=== PATIENT | male | born 1955 | race Caucasian/White ===

== ENCOUNTER 2019-10-27 11:00 | Inpatient (IN) ==
[2019-10-27] MEDS ORDERED: SODIUM CHLORIDE 0.9% 1000ML 1,000 ML IV SCH (11:45)
--- NOTE | 2019-10-27 11:49 | Emergency Department Note ---
Impression & Plan AMS (altered mental status), Sepsis, Left lower lobe pneumonia, Leukocytosis, Constipation, Abnormal ECG, Back pain ED Provider Note INFORMANT: Patient ED PROVIDER(S): Johnathan Hollingsworth MD CHIEF COMPLAINT: Altered mental status PLAN: Disposition: Admitted Condition: Guarded MEDICAL DECISION MAKING: Patient presented with altered mental status. is present and helps with the history. He was found to have moderate tachycardia. He had abdominal discomfort. Chest x-ray did not reveal any obvious findings. ECG showed a sinus tachycardia. There is nonspecific ST. The patient had a marked leukocytosis on his CBC. Head CT and abdomen pelvis CT were performed. Left lower lobe infiltrate noted on abdomen pelvis CT. Head CT was unremarkable. Constipation and a mildly enlarged gallbladder noted on CT imaging otherwise. No other acute findings noted. The patient was found to have some mild deh ydration on chemistry panel. He was treated with Zosyn and vancomycin. The patient was hydrated. He was given a banana bag. He was also treated with Zofran. Further management in the hospital will be necessary. Consultation was made with the [facility] hospitalist service. The patient was evaluated by the team in the emergency department and admitted under Dr. Damian. Triage Nursing notes reviewed and agree them. Additional history obtained from patient's Vital Signs: reviewed and remarkable for tachycardia and hypertension Differential diagnosis: Infection, hypoglycemia, electrolyte abnormalities, overdose, toxicologic, cardiac sources, intracerebral event, neurologic, trauma, as well as other pathologies. Diagnostics interpreted by me: ECG:Rate: 109 Rhythm: Sinus tachycardia [place]: Right axis deviation QRS:Normal ST segements: Nonspecific ST no elevation or depression Other:No PACs or PVCs Cardiac Monitoring:Cardiac monitoring ordered by me: The patient was placed on continuous cardiac monitoring and observed. It revealed a tachycardia at 122 beats per minute without ectopy or evidence of dysrhythmia. Imaging studies: CT scan and chest x-rays as noted above. I refer you to the EMR for further details. Consultation(s): [facility] hospitalist service HPI: The patient is a 64 year old male who presents to the Emergency Room with complaints of lethargy. This started this morning and is persisting. Pts noted he has been having a lot of back spasms and took extra oxycodone, flexeril, and valiums over the last few days. Chronic LBP hx. Pt also quit ETOH 3 weeks ago. note he slept [id number] last night into this morning. She noted he looked grayish in the bathroom this morning. Had vomiting and diarrhea. The patient has found no relieving factors. Current pain is rated as 0/10. Pt denies headache, fevers, chills, diaphoresis, visual changes, neck pain, chest pain, breathing difficulties, abdominal pain, melena, hematochezia, urinary symptoms, numbness, weakness, lymphadenopathy, rash, or other complaints. ROS: See above HPI for pertinent positives & negatives. A total of 10 systems reviewed and were otherwise negative. PAST MEDICAL HISTORY:See Below CKD, ETOH abuse PAST SURGICAL HISTORY:See Below FAMILY HISTORY:See Below SOCIAL HISTORY:See Below HOME MEDICATIONS:See Below ALLERGIES:See Below VITALS:See Below PHYSICAL EXAMINATION: GENERAL: Awake, alert, umcomfortable-appearing, in no distress HENT: Normocephalic, atraumatic. Oropharynx unremarkable. EYES: Normal conjunctiva. Sclera non-icteric. NECK: Inspection normal. Non-tender. Supple. No nuchal rigidity. FROM. No masses. RESPIRATORY: Clear to auscultation. No wheezes. No rales. Normal respiratory effort. CARDIAC: Tachycardic rate. Normal rhythm. No murmurs. No rubs. Extremities warm and well perfused. Pulses equal. No JVD. GI: Soft, non-distended. No tenderness to palpation. No rebound or guarding. No masses. RECTAL: Deferred. MUSCULOSKELETAL: Atraumatic. Chest examination reveals no tenderness. The back is symmetrical on inspection without obvious abnormality. There is no CVA tenderness to palpation. No joint edema. LOWER EXTREMITIES: Calves are equal size bilaterally and non-tender. No edema. No discoloration. NEURO: Normal sensorium. No sensory or motor deficits noted. SKIN: No rash or jaundice noted. ED COURSE: Critical Care: I have personally spent greater than 38 minutes of critical care time in the direct management of this patient. This includes bedside care, interpretation of diagnostic studies, and testing, discussion with consultants, patient, and family members, and other required patient management activities. These minutes are in excess of all separately billable procedures. Johnathan Hollingsworth MD Past Med/Surg History Medical History (Updated 10/27/19 @ 19:07 by Johnathan Hollingsworth MD) Chronic low back pain COPD (chronic obstructive pulmonary disease) Degenerative joint disease (DJD) of lumbar spine Lumbar degenerative disc disease Neuropathy Pneumothorax Rib fracture Tobacco abuse Surgical History History of cataract surgery S/P chest tube placement Social History Smoking Status: Current every day smoker packs per day: 1; Hx Alcohol Use: Yes (history of alcohol abuse) Alcohol type: beer Preferred Language: Mont[place] Visual Impairment: No Limitations Hearing Ability: Normal Beliefs That Will Affect Care: None marital status: Current Living Situation: Spouse Feels Safe at Home: Yes Allergies Allergies Allergy/AdvReac Type Severity Reaction Status Date / Time No Known Allergies Allergy Verified 10/27/19 13:15 Home Meds Home Medications Medication Instructions Recorded Confirmed [facility] Arthritis Pill 600 mg PO UD PRN 07/28/19 10/27/19 gabapentin [Neurontin] 300 mg PO TID 07/28/19 10/27/19 sulindac 200 mg PO BID 07/28/19 10/27/19 aluminum hydrox-magnesium carb 15 ml PO PCHS 10/27/19 10/27/19 [Gaviscon] baclofen 10 mg PO HS 10/27/19 10/27/19 cyclobenzaprine 10 mg PO TID PRN 10/27/19 10/27/19 meloxicam 15 mg PO DAILY 10/27/19 10/27/19 oxycodone-acetaminophen 1 tab PO Q6H PRN 10/27/19 10/27/19 Previous Rx's Medication Instructions Recorded docusate sodium [Colace] 100 mg PO BID #60 cap 08/03/19 lidocaine [Lidoderm] 1 patch TOP DAILY #15 ea 08/03/19 sennosides [Senokot] 8.6 mg PO HS #30 tab 08/03/19 diazepam [Valium] 5 mg PO BID PRN #7 tab 10/13/19 Results & Data (ED) Vital Signs Vital Signs - 24 hr 10/27/19 11:04 10/27/19 11:18 10/27/19 11:24 Temperature 36.6 C Temperature Source Oral Pulse Rate 113 H Pulse Rate from SpO2 Sensor 111 H Pulse Rhythm Respiratory Rate 17 14 Respiratory Depth Normal Respiratory Pattern Regular Blood Pressure 168/96 H 168/96 H Blood Pressure Mean 126 120 Pulse Oximetry 99 98 98 Oxygen Delivery Method Room Air Room Air Sepsis Recent Fever Within 48 Hours No Sepsis New/Unexplained Change in Mental Status Yes Sepsis Action Taken by Nursing No Action Required 10/27/19 11:25 10/27/19 11:30 10/27/19 11:40 Temperature Temperature Source Pulse Rate 118 H 122 H Pulse Rate from SpO2 Sensor 118 H Pulse Rhythm Regular Respiratory Rate 21 18 Respiratory Depth Respiratory Pattern Blood Pressure 140/89 Blood Pressure Mean 110 Pulse Oximetry 99 99 Oxygen Delivery Method Room Air Room Air Sepsis Recent Fever Within 48 Hours Sepsis New/Unexplained Change in Mental Status Sepsis Action Taken by Nursing 10/27/19 12:01 10/27/19 12:37 10/27/19 12:43 Temperature Temperature Source Pulse Rate 128 H 102 H 109 H Pulse Rate from SpO2 Sensor 129 H 101 H 110 H Pulse Rhythm Respiratory Rate 24 14 16 Respiratory Depth Respiratory Pattern Blood Pressure 130/98 214/102 H 202/106 H Blood Pressure Mean 113 126 125 Pulse Oximetry 99 100 100 Oxygen Delivery Method Sepsis Recent Fever Within 48 Hours Sepsis New/Unexplained Change in Mental Status Sepsis Action Taken by Nursing 10/27/19 13:00 10/27/19 13:37 10/27/19 14:00 Temperature Temperature Source Pulse Rate 91 H 88 86 Pulse Rate from SpO2 Sensor 90 90 Pulse Rhythm Respiratory Rate 13 16 15 Respiratory Depth Respiratory Pattern Blood Pressure 183/98 H 205/93 H 198/106 H Blood Pressure Mean 149 143 138 Pulse Oximetry 100 99 Oxygen Delivery Method Sepsis Recent Fever Within 48 Hours Sepsis New/Unexplained Change in Mental Status Sepsis Action Taken by Nursing 10/27/19 14:30 10/27/19 15:00 10/27/19 15:30 Temperature Temperature Source Pulse Rate 75 68 79 Pulse Rate from SpO2 Sensor Pulse Rhythm Respiratory Rate 20 13 20 Respiratory Depth Respiratory Pattern Blood Pressure 200/92 H 173/91 H 202/89 H Blood Pressure Mean 135 137 114 Pulse Oximetry 99 99 Oxygen Delivery Method Sepsis Recent Fever Within 48 Hours Sepsis New/Unexplained Change in Mental Status Sepsis Action Taken by Nursing 10/27/19 16:13 10/27/19 16:31 Temperature Temperature Source Pulse Rate 90 77 Pulse Rate from SpO2 Sensor 77 Pulse Rhythm Respiratory Rate 24 17 Respiratory Depth Respiratory Pattern Blood Pressure 140/66 183/79 H Blood Pressure Mean 101 128 Pulse Oximetry 98 Oxygen Delivery Method Sepsis Recent Fever Within 48 Hours Sepsis New/Unexplained Change in Mental Status Sepsis Action Taken by Nursing Laboratory Data Result diagrams: 10/27/19 12:04 10/27/19 12:04 Lab Results 10/27/19 10/27/19 10/27/19 Range/Units 11:11 12:04 12:04 WBC 21.99 H (4.8-10.8) K/uL RBC 4.87 (4.7-6.1) M/uL Hgb 16.5 (14.0-18.0) g/dL Hct 48.0 (42-52) % MCV 98.6 (80-100) fL MCH 33.9 (25-34) pg MCHC 34.4 (32-36) g/dL RDW Std Deviation 48.6 H (36.4-46.3) fL RDW Coeff of [place] 13.6 (11.5-14.5) % Plt Count 507 H (130-400) K/uL MPV 9.3 (7.4-10.4) fL Immature Gran % (Auto) 0.6 % Neut % (Auto) 76.9 % Lymph % (Auto) 12.4 % [place] % (Auto) 8.5 % Eos % (Auto) 1.1 % Baso % (Auto) 0.5 % Neut # (Auto) 16.89 H (1.4-6.5) K/uL Lymph # (Auto) 2.73 (1.2-3.4) K/uL [place] # (Auto) 1.88 H (0.11-0.59) K/uL Eos # (Auto) 0.24 (0-0.5) K/uL Baso # (Auto) 0.12 (0-0.2) K/uL Immature Gran # (Auto) 0.13 H (0.00-0.02) K/uL Sodium 139 (136-145) mmol/L Potassium 5.1 (3.5-5.1) mmol/L Chloride 105 (98-107) mmol/L Carbon Dioxide 26 (21-32) mmol/L Anion Gap 9.0 (3-11) BUN 31 H (7-18) mg/dl Creatinine 1.90 H (0.6-1.4) mg/dl Est Cr Clr Drug Dosing 27.4 ml/min Est GFR ( Amer) 41.9 Est GFR (Non-Af Amer) 36.2 BUN/Creatinine Ratio 16.1 (10-20) Glucose 116 H (70-99) mg/dl POC Glucose 122 H (70-99) mg/dl Lactate (0.4-2.0) mmol/L Calcium 10.3 H (8.5-10.1) mg/dl Magnesium 2.9 H (1.8-2.4) mg/dl Total Bilirubin 0.4 (0.2-1) mg/dl AST 13 L (15-37) U/L ALT 20 (12-78) U/L Alkaline Phosphatase 125 H (45-117) U/L Troponin I < 0.015 (0-0.045) ng/ml Total Protein 8.4 H (6.4-8.2) gm/dl Albumin 3.6 (3.4-5.0) gm/dl Globulin 4.8 H (2.5-4.0) gm/dl Albumin/Globulin Ratio 0.7 L (0.9-2) Procalcitonin (0-0.5) ng/ml TSH 2.180 (0.300-4.500) uIu/ml Urine Color Urine Appearance (Clear) Urine pH (4.5-7.5) Ur Specific [place] (1.000-1.030) Urine Protein (Negative) Urine Glucose (UA) (Negative) Urine Ketones (Negative) Urine Blood (Negative) Urine Nitrite (Negative) Urine Bilirubin (Negative) Urine Urobilinogen (Negative) Ur Leukocyte Esterase (Negative) Urine WBC (Auto) (0-5) /hpf Urine RBC (Auto) (0-4) /hpf U Hyaline Cast (Auto) (0-5) /lpf U Epithel Cells (Auto) (0-5) /lpf Urine Bacteria (Auto) (Negative) Urine Opiates Screen (Neg) Ur Methadone, Qual (Neg) Urine Barbiturates (Neg) Ur Phencyclidine (PCP) (Neg) U Amphetamin/Meth Scrn (Neg) MDMA (Ecstasy) Screen (Neg) U Benzodiazepines Scrn (Neg) Ur Cocaine Metabolite (Neg) U Marijuana (THC) Screen (Neg) Ethyl Alcohol mg/dL (0-3) mg/dl COVID-19 PCR (Negative) 10/27/19 10/27/19 10/27/19 Range/Units 12:04 12:10 13:25 WBC (4.8-10.8) K/uL RBC (4.7-6.1) M/uL Hgb (14.0-18.0) g/dL Hct (42-52) % MCV (80-100) fL MCH (25-34) pg MCHC (32-36) g/dL RDW Std Deviation (36.4-46.3) fL RDW Coeff of [place] (11.5-14.5) % Plt Count (130-400) K/uL MPV (7.4-10.4) fL Immature Gran % (Auto) % Neut % (Auto) % Lymph % (Auto) % [place] % (Auto) % Eos % (Auto) % Baso % (Auto) % Neut # (Auto) (1.4-6.5) K/uL Lymph # (Auto) (1.2-3.4) K/uL [place] # (Auto) (0.11-0.59) K/uL Eos # (Auto) (0-0.5) K/uL Baso # (Auto) (0-0.2) K/uL Immature Gran # (Auto) (0.00-0.02) K/uL Sodium (136-145) mmol/L Potassium (3.5-5.1) mmol/L Chloride (98-107) mmol/L Carbon Dioxide (21-32) mmol/L Anion Gap (3-11) BUN (7-18) mg/dl Creatinine (0.6-1.4) mg/dl Est Cr Clr Drug Dosing ml/min Est GFR ( Amer) Est GFR (Non-Af Amer) BUN/Creatinine Ratio (10-20) Glucose (70-99) mg/dl POC Glucose (70-99) mg/dl Lactate 2.7 H* (0.4-2.0) mmol/L Calcium (8.5-10.1) mg/dl Magnesium (1.8-2.4) mg/dl Total Bilirubin (0.2-1) mg/dl AST (15-37) U/L ALT (12-78) U/L Alkaline Phosphatase (45-117) U/L Troponin I (0-0.045) ng/ml Total Protein (6.4-8.2) gm/dl Albumin (3.4-5.0) gm/dl Globulin (2.5-4.0) gm/dl Albumin/Globulin Ratio (0.9-2) Procalcitonin 4.70 H (0-0.5) ng/ml TSH (0.300-4.500) uIu/ml Urine Color Urine Appearance (Clear) Urine pH (4.5-7.5) Ur Specific [place] (1.000-1.030) Urine Protein (Negative) Urine Glucose (UA) (Negative) Urine Ketones (Negative) Urine Blood (Negative) Urine Nitrite (Negative) Urine Bilirubin (Negative) Urine Urobilinogen (Negative) Ur Leukocyte Esterase (Negative) Urine WBC (Auto) (0-5) /hpf Urine RBC (Auto) (0-4) /hpf U Hyaline Cast (Auto) (0-5) /lpf U Epithel Cells (Auto) (0-5) /lpf Urine Bacteria (Auto) (Negative) Urine Opiates Screen (Neg) Ur Methadone, Qual (Neg) Urine Barbiturates (Neg) Ur Phencyclidine (PCP) (Neg) U Amphetamin/Meth Scrn (Neg) MDMA (Ecstasy) Screen (Neg) U Benzodiazepines Scrn (Neg) Ur Cocaine Metabolite (Neg) U Marijuana (THC) Screen (Neg) Ethyl Alcohol mg/dL < 3.0 (0-3) mg/dl COVID-19 PCR (Negative) 10/27/19 10/27/19 10/27/19 Range/Units 14:20 14:45 14:45 WBC (4.8-10.8) K/uL RBC (4.7-6.1) M/uL Hgb (14.0-18.0) g/dL Hct (42-52) % MCV (80-100) fL MCH (25-34) pg MCHC (32-36) g/dL RDW Std Deviation (36.4-46.3) fL RDW Coeff of [place] (11.5-14.5) % Plt Count (130-400) K/uL MPV (7.4-10.4) fL Immature Gran % (Auto) % Neut % (Auto) % Lymph % (Auto) % [place] % (Auto) % Eos % (Auto) % Baso % (Auto) % Neut # (Auto) (1.4-6.5) K/uL Lymph # (Auto) (1.2-3.4) K/uL [place] # (Auto) (0.11-0.59) K/uL Eos # (Auto) (0-0.5) K/uL Baso # (Auto) (0-0.2) K/uL Immature Gran # (Auto) (0.00-0.02) K/uL Sodium (136-145) mmol/L Potassium (3.5-5.1) mmol/L Chloride (98-107) mmol/L Carbon Dioxide (21-32) mmol/L Anion Gap (3-11) BUN (7-18) mg/dl Creatinine (0.6-1.4) mg/dl Est Cr Clr Drug Dosing ml/min Est GFR ( Amer) Est GFR (Non-Af Amer) BUN/Creatinine Ratio (10-20) Glucose (70-99) mg/dl POC Glucose (70-99) mg/dl Lactate (0.4-2.0) mmol/L Calcium (8.5-10.1) mg/dl Magnesium (1.8-2.4) mg/dl Total Bilirubin (0.2-1) mg/dl AST (15-37) U/L ALT (12-78) U/L Alkaline Phosphatase (45-117) U/L Troponin I (0-0.045) ng/ml Total Protein (6.4-8.2) gm/dl Albumin (3.4-5.0) gm/dl Globulin (2.5-4.0) gm/dl Albumin/Globulin Ratio (0.9-2) Procalcitonin (0-0.5) ng/ml TSH (0.300-4.500) uIu/ml Urine Color Yellow Urine Appearance Clear (Clear) Urine pH 7.0 (4.5-7.5) Ur Specific [place] 1.016 (1.000-1.030) Urine Protein 2+ H (Negative) Urine Glucose (UA) Negative (Negative) Urine Ketones Negative (Negative) Urine Blood 3+ H (Negative) Urine Nitrite Positive A (Negative) Urine Bilirubin Negative (Negative) Urine Urobilinogen Negative (Negative) Ur Leukocyte Esterase 2+ H (Negative) Urine WBC (Auto) >30 H (0-5) /hpf Urine RBC (Auto) >30 H (0-4) /hpf U Hyaline Cast (Auto) 5-10 H (0-5) /lpf U Epithel Cells (Auto) 0-5 (0-5) /lpf Urine Bacteria (Auto) 4+ H (Negative) Urine Opiates Screen Neg (Neg) Ur Methadone, Qual Neg (Neg) Urine Barbiturates Neg (Neg) Ur Phencyclidine (PCP) Neg (Neg) U Amphetamin/Meth Scrn Neg (Neg) MDMA (Ecstasy) Screen Neg (Neg) U Benzodiazepines Scrn Pos H (Neg) Ur Cocaine Metabolite Neg (Neg) U Marijuana (THC) Screen Neg (Neg) Ethyl Alcohol mg/dL (0-3) mg/dl COVID-19 PCR NEGATIVE (Negative) 10/27/19 Range/Units 15:56 WBC (4.8-10.8) K/uL RBC (4.7-6.1) M/uL Hgb (14.0-18.0) g/dL Hct (42-52) % MCV (80-100) fL MCH (25-34) pg MCHC (32-36) g/dL RDW Std Deviation (36.4-46.3) fL RDW Coeff of [place] (11.5-14.5) % Plt Count (130-400) K/uL MPV (7.4-10.4) fL Immature Gran % (Auto) % Neut % (Auto) % Lymph % (Auto) % [place] % (Auto) % Eos % (Auto) % Baso % (Auto) % Neut # (Auto) (1.4-6.5) K/uL Lymph # (Auto) (1.2-3.4) K/uL [place] # (Auto) (0.11-0.59) K/uL Eos # (Auto) (0-0.5) K/uL Baso # (Auto) (0-0.2) K/uL Immature Gran # (Auto) (0.00-0.02) K/uL Sodium (136-145) mmol/L Potassium (3.5-5.1) mmol/L Chloride (98-107) mmol/L Carbon Dioxide (21-32) mmol/L Anion Gap (3-11) BUN (7-18) mg/dl Creatinine (0.6-1.4) mg/dl Est Cr Clr Drug Dosing ml/min Est GFR ( Amer) Est GFR (Non-Af Amer) BUN/Creatinine Ratio (10-20) Glucose (70-99) mg/dl POC Glucose (70-99) mg/dl Lactate 1.9 (0.4-2.0) mmol/L Calcium (8.5-10.1) mg/dl Magnesium (1.8-2.4) mg/dl Total Bilirubin (0.2-1) mg/dl AST (15-37) U/L ALT (12-78) U/L Alkaline Phosphatase (45-117) U/L Troponin I (0-0.045) ng/ml Total Protein (6.4-8.2) gm/dl Albumin (3.4-5.0) gm/dl Globulin (2.5-4.0) gm/dl Albumin/Globulin Ratio (0.9-2) Procalcitonin (0-0.5) ng/ml TSH (0.300-4.500) uIu/ml Urine Color Urine Appearance (Clear) Urine pH (4.5-7.5) Ur Specific [place] (1.000-1.030) Urine Protein (Negative) Urine Glucose (UA) (Negative) Urine Ketones (Negative) Urine Blood (Negative) Urine Nitrite (Negative) Urine Bilirubin (Negative) Urine Urobilinogen (Negative) Ur Leukocyte Esterase (Negative) Urine WBC (Auto) (0-5) /hpf Urine RBC (Auto) (0-4) /hpf U Hyaline Cast (Auto) (0-5) /lpf U Epithel Cells (Auto) (0-5) /lpf Urine Bacteria (Auto) (Negative) Urine Opiates Screen (Neg) Ur Methadone, Qual (Neg) Urine Barbiturates (Neg) Ur Phencyclidine (PCP) (Neg) U Amphetamin/Meth Scrn (Neg) MDMA (Ecstasy) Screen (Neg) U Benzodiazepines Scrn (Neg) Ur Cocaine Metabolite (Neg) U Marijuana (THC) Screen (Neg) Ethyl Alcohol mg/dL (0-3) mg/dl COVID-19 PCR (Negative) Administered Medications Sodium Chloride (Nss 1000ml) 1,000 mls @ 125 mls/hr IV .Q8H GENTRY Stop: 10/27/19 19:44 Last Admin: 10/27/19 11:48 Dose: 125 mls/hr Documented by: [id number] Discontinued Medications Acetaminophen (Acetaminophen 1000 Mg/100 Ml Iv) Confirm Administered Dose 1,000 mg IV .STK-MED ONE Stop: 10/27/19 16:16 Last Admin: 10/27/19 16:36 Dose: 1,000 mg Documented by: [id number] Famotidine (Famotidine 20mg/5ml Iv Push) 20 mg IV ONE STA Stop: 10/27/19 12:51 Last Admin: 10/27/19 13:32 Dose: 20 mg Documented by: [id number] Multivitamins 10 ml/ Thiamine HCl 100 mg/ Folic Acid 1 mg/Sodium Chloride 1,011.2 mls @ 1,011.2 mls/hr IV .Q1H ONE Stop: 10/27/19 12:52 Last Infusion: 10/27/19 13:56 Dose: 0 mls/hr Documented by: [id number] Admin: 10/27/19 12:44 Dose: 1,011.2 mls/hr Documented by: [id number] Piperacillin Sod/Tazobactam Sod (Zosyn) 4.5 gm in 120 mls @ 240 mls/hr IV NOW ONE Stop: 10/27/19 13:21 Last Infusion: 10/27/19 14:18 Dose: 0 mls/hr Documented by: [id number] Admin: 10/27/19 13:32 Dose: 240 mls/hr Documented by: [id number] Vancomycin HCl 1,000 mg/ (Sodium Chloride) 520 mls @ 200 mls/hr IV NOW ONE Stop: 10/27/19 15:52 Last Infusion: 10/27/19 16:38 Dose: 0 mls/hr Documented by: [id number] Admin: 10/27/19 13:56 Dose: 200 mls/hr Documented by: [id number] Ondansetron HCl (Ondansetron Inj 2 Mg/Ml 2 Ml Vial) 4 mg IV NOW STA Stop: 10/27/19 12:51 Last Admin: 10/27/19 13:32 Dose: 4 mg Documented by: [id number] Discharge Plan Visit Data Chief Complaint: Illness Stated Complaint: Lethargic Possible Overdose ED Provider: Johnathan Hollingsworth Discharge Problem: AMS (altered mental status), Sepsis, Left lower lobe pneumonia, Leukocytosis, Constipation, Abnormal ECG, Back pain Patient Disposition: Admitted As Inpatient Discharge Instructions Interventions: ED Discharge Assessment Last Done: 10/27/19 17:28
[2019-10-27] MEDS ORDERED: MULTI-VITAMIN INFUSION 10 ML, THIAMINE HCL 100 MG, FOLIC ACID 1 MG in SODIUM CHLORIDE 0... IV ONE (11:53)
[2019-10-27 12:22] LABS: Basophils # (auto) 0.12 K/uL (0-0.2); Basophils % (auto) 0.5 %; Eosinophils # (auto) 0.24 K/uL (0-0.5); Eosinophils % (auto) 1.1 %; Hemoglobin 16.5 g/dL (14.0-18.0); Immature Granulocytes # (auto) 0.13 K/uL (0.00-0.02); Immature Granulocytes % (auto) 0.6 %; Lymphocytes # (auto) 2.73 K/uL (1.2-3.4); Lymphocytes % (auto) 12.4 %; Mean Corpuscular Hemoglobin 33.9 pg (25-34); Mean Corpuscular Hgb Conc 34.4 g/dL (32-36); Mean Corpuscular Volume 98.6 fL (80-100); Mean Platelet Volume 9.3 fL (7.4-10.4); Monocytes # (auto) 1.88 K/uL (0.11-0.59); Monocytes % (auto) 8.5 %; Neutrophils # (auto) 16.89 K/uL (1.4-6.5); Neutrophils % (auto) 76.9 %; Platelet Count 507 K/uL (130-400); RDW Coefficient of Variation 13.6 % (11.5-14.5); RDW Standard Deviation 48.6 fL (36.4-46.3); Red Blood Count 4.87 M/uL (4.7-6.1); White Blood Count 21.99 K/uL (4.8-10.8)
[2019-10-27 12:41] LABS: Alanine Aminotransferase 20 U/L (12-78); Albumin Level 3.6 gm/dl (3.4-5.0); Aspartate Aminotransferase 13 U/L (15-37); BUN Creatinine Ratio 16.1 (10-20); Blood Urea Nitrogen 31 mg/dl (7-18); Calcium 10.3 mg/dl (8.5-10.1); Carbon Dioxide 26 mmol/L (21-32); Chloride 105 mmol/L (98-107); Creatinine Clr Calc Pharmacy 27.4 ml/min; Est GFR (African American) 41.9; Est GFR (Non-African American) 36.2; Glucose 116 mg/dl (70-99); Magnesium 2.9 mg/dl (1.8-2.4); Potassium 5.1 mmol/L (3.5-5.1); Sodium 139 mmol/L (136-145)
[2019-10-27] MEDS ORDERED: FAMOTIDINE 20MG/5ML IV PUSH IV STA (12:50)
[2019-10-27] MEDS ORDERED: ONDANSETRON INJ 2 MG/ML 2 ML VIAL IV STA (12:50)
[2019-10-27 12:52] LABS: Albumin Globulin Ratio 0.7 (0.9-2); Alkaline Phosphatase 125 U/L (45-117); Bilirubin,Total 0.4 mg/dl (0.2-1); Globulin 4.8 gm/dl (2.5-4.0); Total Protein 8.4 gm/dl (6.4-8.2); Troponin I < 0.015 ng/ml (0-0.045)
[2019-10-27] MEDS ORDERED: PIPERACILL/TAZOBAC CONSULT ACTIVE PRN (12:52)
[2019-10-27] MEDS ORDERED: PIPERACILLIN/TAZOBACTAM 4.5 GM/120 ML BAG IV ONE (12:52)
--- NOTE | 2019-10-27 12:54 | CT Scan Report ---
ABDOMEN AND PELVIS CT WITHOUT CONTRAST CT DOSE: 1762.25 mGy.cm HISTORY: Generalized abdominal pain. Altered mental status. TECHNIQUE: Multiaxial CT images of the abdomen and pelvis were performed without contrast. A dose lo wering technique was utilized adhering to the principles of ALARA. COMPARISON STUDY: None. FINDINGS: Small focus of faint groundglass densities within the left lower lobe. The right lung base is clear. No pneumoperitoneum. No pneumatosis. No suspicious lytic are blastic osseous lesions. Mildl y distended gallbladder. No gallbladder wall thickening. The unenhanced liver, spleen, adrenal glands , and pancreas are unremarkable. No renal stones or hydronephrosis. Mild to moderate left cortical re nal scarring. A few hypodense lesions within the kidneys which are incompletely characterized on this noncontrast study. The largest on the right measures 2.2 cm. Statistically these represent cysts. Mo derate calcified plaque within the normal caliber thoracic aorta. No retroperitoneal lymphadenopathy. Moderate bladder wall thickening. Enlarged prostate gland. Suboptimal evaluation for bowel pathology due to the lack of intravenous and oral contrast. However, there is no definite bowel wall thickenin g or obstruction. Moderate to large amount well-formed stool seen throughout the colon. This includes a 6.7 cm rectal stool ball. Normal appendix. IMPRESSION: 1. No definite bowel wall thickening or obstruction. 2. Mildly distended gallbladder. No gallbladder wall thickening. 3. Moderate to large amount of well-formed stool seen throughout the colon and rectum. This includes a 6.7 cm rectal stool ball. 4. Normal appendix. 5. Small focus of faint groundglass densities within the left lower lobe. This likely represents mild inflammatory/infectious change. 6. Moderate bladder wall thickening. This could be due to chronic outlet obstruction from the enlarge d prostate gland. Recommend correlation with urinalysis to exclude a cystitis. ACT 112: Negative or not required by law. Electronically signed by: Jose Rafael Noe M.D. 10/27/2019 12:53 PM
--- NOTE | 2019-10-27 13:01 | CT Scan Report ---
HEAD CT NONCONTRAST CT DOSE: HISTORY: Closed head injury. TECHNIQUE: Multiaxial CT images of the head were performed without the use of intravenous contrast. A utomated exposure control was utilized for this study. A dose lowering technique was utilized adheri ng to the principles of ALARA. Comparison: None. Findings: The paranasal sinuses and mastoid air cells are clear. The calvarium and skull base are int act. There is no mass, hematoma, midline shift, acute infarct. White matter hypodensity is nonspecifi c but suggestive of microvascular ischemic change. The ventricles and sulci demonstrate mild age-rela warren involutional changes. Impression: No acute intracranial abnormality. Atrophy and microvascular ischemic changes. ACT 112: Negative or not required by law. Electronically signed by: Jose Rafael Noe M.D. 10/27/2019 1:00 PM
--- NOTE | 2019-10-27 13:06 | XRay Report ---
XR chest 1V portable HISTORY: weakness COMPARISON: Chest 04/19/2015. FINDINGS: The lungs are clear. Cardiac silhouette is normal in size. No pleural effusions. No pneumot horax. Old, healed left-sided rib fractures. IMPRESSION: No acute process. ACT 112: Negative or not required by law. Electronically signed by: Jose Rafael Noe M.D. 10/27/2019 1:05 PM
[2019-10-27] MEDS ORDERED: VANCOMYCIN CONSULT ACTIVE PRN (13:17)
[2019-10-27] MEDS ORDERED: VANCOMYCIN HCL 1,000 MG in SODIUM CHLORIDE 0.9% 500 ML IV ONE (13:17)
[2019-10-27 15:04] LABS: Appearance Urine Clear (Clear); Bacteria Urine Automated 4+ (Negative); Bilirubin Urine Negative (Negative); Blood Urine 3+ (Negative); Color Urine Yellow; Epithelial Cell Urine Auto 0-5 /lpf (0-5); Glucose Urine UA Negative (Negative); Ketones Urine Negative (Negative); Leukocyte Esterase Urine 2+ (Negative); Nitrite Urine Positive (Negative); Protein Urine 2+ (Negative); RBC Urine Automated >30 /hpf (0-4); Specific Gravity Urine 1.016 (1.000-1.030); Urobilinogen Urine Negative (Negative); WBC Urine Automated >30 /hpf (0-5)
[2019-10-27 15:25] LABS: Amphetamines+Metham, Urine Neg (Neg); Barbiturates, Urine Neg (Neg); Benzodiazepine, Urine Pos (Neg); Cocaine, Urine Neg (Neg); MDMA (Ecstacy), Urine Neg (Neg); Methadone, Urine Neg (Neg); Opiate, Urine Neg (Neg); Phencyclidine, Urine Neg (Neg)
[2019-10-27] MEDS ORDERED: ACETAMINOPHEN 1000 MG/100 ML IV IV ONE (16:15)
[2019-10-27] MEDS ORDERED: ACETAMINOPHEN 1,000 MG/100 ML VIAL IV STA (16:33)
[2019-10-27] MEDS ORDERED: SOD PHOSPHATE/SOD BIPHOSPHATE ENEMA 132 ML BTL PR STA (16:40)
--- NOTE | 2019-10-27 16:48 | History & Physical Report ---
Date of Service October 27, 2019 Assessment & Plan (1) Sepsis: (2) Left lower lobe pneumonia: This is a 64-year-old male with PMH of cervical and lumbar disc disease, tobacco use disorder, CKD III, history of alcohol use disorder who has been sober for 3 weeks who presents to ED with altered mental status, nausea and back pain who was found to have sepsis secondary to possible aspiration pneumonia, complicated UTI and rectal stool ball. -HR 113, WBC 21.99k, lactic acid 2.7, procal of 4.7 -In setting of small ground glass densities within left lower lobe with concern of aspiration of vomit this morning -Also with evidence of complicated UTI and concern for possible bladder outlet obstruction secondary to enlarged prostate -Received Zosyn and Vanco in ED. Continue empiric antibiotic coverage with Zosyn. MRSA screen pending -Repeat lactic acid within normal limits. Continue IV fluids -Follow blood and urine cultures (3) Acute metabolic encephalopathy: In setting of infection, polypharmacy -Expect improved mentation with IV antibiotics, fluids and clearance of controlled substances -CT head without any acute abnormalities (4) Constipation: Narcotic induced constipation. Milk and molasses enema ordered. Consider GI consult for disimpaction of stool if enema unsuccessful -Continue docusate BID and Senokot at bedtime (5) Abnormal CT of the abdomen: CT abd/pelvis with mildly distended gallbladder. No gallbladder wall thickening -Diffuse abdominal and back discomfort on exam - RUQ ultrasound for better evaluation -Repeat CMP tomorrow (6) Lower back pain: Longstanding chronic back pain, has been evaluated for surgery by Dr. Mota in the past and has been receiving epidural steroid injections by Dr. Kim for the past few months -AMS on evaluation due to taking more Flexeril and oxycodone than prescribed. Also has been taking Valium, baclofen and gabapentin in the past few days -Lumbar spine CT without contrast shows no change compared to prior study. No acute fractures within the lumbar spine. Ibkj-oq-[id number] degenerative changes within the lower lumbar spine are again noted -Consider obtaining lumbar spine MRI once back pain under better control. Also orthopedic spine consult -Continue tylenol and lidocaine patch (7) Acute kidney injury superimposed on CKD: Cr elevated at 1.9 (baseline ~1.3) in setting of poor PO intake, UTI, concern for outlet obstruction 2/[address] abd/pelvis. Bladder scan Qshift (8) Complicated UTI (urinary tract infection): Grossly abnormal UA. Receiving zosyn for empiric coverage of possible aspiration PNA. Follow urine culture (9) History of alcohol use: History of drinking 6-10 beers daily for years, quit 3 weeks ago. Serum etoh level <3 -Given banana bag in ED. Give folic acid, thiamine and MV starting tomorrow morning (10) Malnutrition: BMI of 17.4 and recent weight loss in setting of history of heavy alcohol use -Dietitian consult placed (11) Tobacco abuse: Smokes 1 ppd. Cessation counseling ordered. Nicotine patch provided DVT Ppx: SQ heparin Code status: FULL PCP: Christie Dispo: Admitted to PCU. Plan to return home once medically stable. Patient seen in collaboration with Dr. Raymond. Please see addendum. History of Present Illness Chief Complaint: Altered mental status, vomiting, abdominal pain, back pain Primary Care Provider: Marlon Santana DO This is a 64-year-old male with PMH of cervical and lumbar disc disease, tobacco use disorder, CKD III, history of alcohol use disorder who has been sober for 3 weeks who presents to ED with altered mental status, nausea and back pain. Patient has been experiencing chronic back pain for years and was evaluated by Dr. Mota for possible surgery a year ago but decided to try epidural spinal injections with pain management first, which she has been doing over the past year. Patient saw Dr. Kim on 10/14 for injection but pain has increased significantly since then, with muscle spasms every few hours versus once a day. Has been seen in ER for back pain as well. states that patient has been taking Flexeril and oxycodone more frequently than they are prescribed for the past few days as well as valium yesterday. Reportedly slept from [id number] last night into this morning and looked grayish in the bathroom this morning. Had vomiting and diarrhea and seemed confused and lethargic. is worried patient overdosed on medication, so brought him to ED for further evaluation. Throughout time in ED and upon evaluation by hospitalist service, patient developed abdominal and back pain. Also complaining of skin hurting to touch. Of note, patient has history of drinking 6-10 beers daily and stopped abruptly on his own approximately 3 weeks ago. Has issues with constipation in setting of narcotic use and has not gone for the past few days. Uses a stool softener and laxative. Poor appetite and weight loss over the past few weeks. Denies any fever or chills. No lightheadedness, visual changes, chest pain, shortness of breath, dysuria or diarrhea. thinks patient may have aspirated when vomiting this morning. Allergies Allergy/AdvReac Type Severity Reaction Status Date / Time No Known Allergies Allergy Verified 10/27/19 13:15 Home Medications Home Medications Medication Instructions Recorded Confirmed Type [facility] Arthritis Pill 600 mg PO UD PRN 07/28/19 10/27/19 History gabapentin [Neurontin] 300 mg PO TID 07/28/19 10/27/19 History sulindac 200 mg PO BID 07/28/19 10/27/19 History docusate sodium [Colace] 100 mg PO BID #60 cap 08/03/19 10/27/19 Rx lidocaine [Lidoderm] 1 patch TOP DAILY #15 ea 08/03/19 10/27/19 Rx sennosides [Senokot] 8.6 mg PO HS #30 tab 08/03/19 10/27/19 Rx diazepam [Valium] 5 mg PO BID PRN #7 tab 10/13/19 10/27/19 Rx aluminum hydrox-magnesium carb 15 ml PO PCHS 10/27/19 10/27/19 History [Gaviscon] baclofen 10 mg PO HS 10/27/19 10/27/19 History cyclobenzaprine 10 mg PO TID PRN 10/27/19 10/27/19 History meloxicam 15 mg PO DAILY 10/27/19 10/27/19 History oxycodone-acetaminophen 1 tab PO Q6H PRN 10/27/19 10/27/19 History Past Med/Surg History Medical History Chronic low back pain COPD (chronic obstructive pulmonary disease) Degenerative joint disease (DJD) of lumbar spine Lumbar degenerative disc disease Neuropathy Pneumothorax Rib fracture Tobacco abuse Surgical History History of cataract surgery S/P chest tube placement Family History Other Hypertension Social History (Updated 10/27/19 @ 20:09 by Brittany Eldridge PA-C) Smoking Status: Current every day smoker packs per day: 1; Cigarettes Per Day: 20; Second Hand Exposure: No; Do You Dip or Chew Tobacco: No; Tobacco Cessation Education Requested by Patient: No Hx Alcohol Use: Yes Alcohol type: beer Alcohol Intake Frequency Comment: used to drink 6-10 beers daily but quit 3 weeks ago Hx Substance Use: Yes Last Used Substance: Hours (ago) Last Used Substance Other:: 24 - 12 hours ago Preferred Language: Bulgarian Visual Impairment: No Limitations Hearing Ability: Normal In Store Marketing Representative Required: No Beliefs That Will Affect Care: None marital status: Current Living Situation: Spouse Other Information That Helps Us Care for You: No Feels Safe at Home: Yes Review of Systems Review of Systems: At least ten systems reviewed and negative except as noted in the HPI. Physical Exam Physical Exam: Please see Dr. Raymond's addendum for physical exam details. Results & Data Results & Data ([facility]) Vital Signs (Past 12 Hours) Vital Signs Temp Pulse Resp BP Pulse Ox 10/27/19 16:31 77 17 183/79 H 98 10/27/19 16:13 90 24 140/66 10/27/19 15:30 79 20 202/89 H 10/27/19 15:00 68 13 173/91 H 99 10/27/19 14:30 75 20 200/92 H 99 10/27/19 14:00 86 15 198/106 H 10/27/19 13:37 88 16 205/93 H 99 10/27/19 13:00 91 H 13 183/98 H 100 10/27/19 12:43 109 H 16 202/106 H 100 10/27/19 12:37 102 H 14 214/102 H 100 10/27/19 12:01 128 H 24 130/98 99 10/27/19 11:40 122 H 18 99 10/27/19 11:30 118 H 21 140/89 99 10/27/19 11:24 98 10/27/19 11:18 36.6 C 14 168/96 H 98 10/27/19 11:04 113 H 17 168/96 H 99 Laboratory Results Short CBC 10/27/19 Range/Units 12:04 WBC 21.99 H (4.8-10.8) K/uL Hgb 16.5 (14.0-18.0) g/dL Hct 48.0 (42-52) % Plt Count 507 H (130-400) K/uL BMP 10/27/19 12:04 Sodium 139 Potassium 5.1 Chloride 105 Carbon Dioxide 26 BUN 31 H Creatinine 1.90 H Glucose 116 H Calcium 10.3 H Cardiac Enzymes 10/27/19 Range/Units 12:04 Troponin I < 0.015 (0-0.045) ng/ml Liver Function 10/27/19 Range/Units 12:04 Total Bilirubin 0.4 (0.2-1) mg/dl AST 13 L (15-37) U/L ALT 20 (12-78) U/L Alkaline Phosphatase 125 H (45-117) U/L Albumin 3.6 (3.4-5.0) gm/dl Urine 10/27/19 Range/Units 14:45 Urine Color Yellow Urine Appearance Clear (Clear) Urine pH 7.0 (4.5-7.5) Ur Specific [place] 1.016 (1.000-1.030) Urine Protein 2+ H (Negative) Urine Glucose (UA) Negative (Negative) Diagnostic Findings CT head: Impression: No acute intracranial abnormality. Atrophy and microvascular ischemic changes. CT abd/pelvis: IMPRESSION: 1. No definite bowel wall thickening or obstruction. 2. Mildly distended gallbladder. No gallbladder wall thickening. 3. Moderate to large amount of well-formed stool seen throughout the colon and rectum. This includes a 6.7 cm rectal stool ball. 4. Normal appendix. 5. Small focus of faint ground glass densities within the left lower lobe. This likely represents mild inflammatory/infectious change. 6. Moderate bladder wall thickening. This could be due to chronic outlet obstruction from the enlarged prostate gland. Recommend correlation with urinalysis to exclude a cystitis. Code Status & VTE Plan VTE Prophylaxis Plan VTE Prophylaxis will be ordered: Yes Supervising Physician Co-Signing Physician Notes Patient was seen and examined by me, care coordinated with Brittany Eldridge PA-C. Please see her note above for further details. Mr. Tony, is a 64-year-old male, with history of chronic low back pain, COPD, neuropathy, history of tobacco use, prior history of rib fracture and pneumothorax, CKD stage III who presents now for lethargy. Patient has had chronic back pain, and more recently, took extra oxycodone, Flexeril and Valium at home. He then slept from 6 PM to 9 AM this morning, was more lethargic per , he also developed vomiting and diarrhea. In the ED he was found to have white blood cell count elevated at 22,000, he was tachycardic with heart rates in 120s, creatinine also elevated at 1.9, from baseline of 1.4. Troponin was negative. EKG shows sinus tachycardia with ST depression in inferior leads. Per patient's , patient also quit drinking about 3 weeks ago. Lactate 2.7. On CT abdomen pelvis, there is a rectal stool ball 6.7 cm. There is also concern of bibasilar pneumonia. Patient was started on Vanco Zosyn and received a liter of normal saline in the ED. Of note patient was seen by Dr. Kim on October 14 for epidural steroid injection. Patient is currently lying in bed, uncomfortable due to pain. He points to his lower abdomen and lower back for pain. He is alert and oriented answering questions appropriately. He is able to move his lower and upper extremities. Denies any urinary or stool incontinence. Abdomen is non-distended, thin, soft, positive bowel sounds, tender to palpation in lower quadrants. Inspection of back is unremarkable, there is no erythema or swelling noted. Patient overall is very thin. There is however tenderness to palpation over lumbar spine. Skin is warm, dry, well perfused. Has also regular, lung sounds are clear to auscultation, no wheezing rhonchi or crackles noted. Patient also denies any cough or sputum production recently. Patient is meeting sepsis criteria with elevated white blood cell count, elevated respirations and heart rate. We will need to repeat lactate, and continue broad-spectrum coverage with Vanco and Zosyn. COVID test in ED negative, procalcitonin elevated. For rectal stool ball, will order enema, and disimpaction, if not successful, will need GI evaluation. Will need further imaging of lumbar spine, to evaluate for any worsening of his degenerative disc disease, and or possible abscess, patient recently underwent epidural steroid injection. Depending on results, may involve orthospine. We will try to avoid narcotics, as patient has opiate-induced constipation, will continue home stool softeners, will add MiraLAX and as mentioned above, will order enema. Chris Raymond MD
--- NOTE | 2019-10-27 17:44 | CT Scan Report ---
LUMBAR SPINE CT CT DOSE: HISTORY: lumbar spine pain TECHNIQUE: Multiaxial CT images of the lumbar spine were performed and reformatted in the sagittal an d coronal plane without the use of contrast. A dose lowering technique was utilized adhering to the principles of ALARA. COMPARISON: Lumbar spine radiograph 10/13/2019. FINDINGS: Mild to moderate super endplate compression deformity at L2, unchanged. No acute fracture o r subluxation within the lumbar spine. The visualized sacrum is intact. Moderate degenerative disc di sease at L4-L5 and L5-S1. There is mild degenerative disease at L3-L4. There is also unchanged. Moder ate facet degenerative changes within the lower lumbar spine. IMPRESSION: 1. No change compared to prior study. No acute fractures within the lumbar spine. 2. Old superior endplate compression deformity at L2. 3. [id number] degenerative changes within the lower lumbar spine are again noted. ACT 112: Negative or not required by law. Electronically signed by: Jose Rafael Noe M.D. 10/27/2019 5:42 PM
[2019-10-27] MEDS ORDERED: CYCLOBENZAPRINE HCL 10 MG TAB PO PRN (18:13)
[2019-10-27] MEDS ORDERED: ONDANSETRON INJ 2 MG/ML 2 ML VIAL IV PRN (18:23)
[2019-10-27] MEDS: PIPERACILLIN/TAZOBACTAM 3.375 GM in DEXTROSE 5% 100 ML IV SCH (19:55)
[2019-10-27] MEDS: NICOTINE 21 MG/24 HR TDSY TD SCH (19:56)
[2019-10-27] MEDS: LIDOCAINE 5% 1 PATCH TD SCH (19:56)
[2019-10-27] MEDS: GABAPENTIN 300 MG CAP PO SCH (19:57)
[2019-10-27] MEDS: DOCUSATE SODIUM 100 MG CAP PO SCH (19:57)
[2019-10-27] MEDS: SODIUM CHLORIDE 0.9% 1000ML 1,000 ML IV SCH (20:58)
[2019-10-27] MEDS ORDERED: SENNA 8.6 MG TAB PO SCH (21:00)
[2019-10-27] MEDS: HEPARIN SOD 5,000 UNIT/0.5 ML VIAL SQ SCH (22:23)
[2019-10-28] MEDS: CYCLOBENZAPRINE HCL 10 MG TAB PO PRN (00:15)
[2019-10-28] MEDS: PIPERACILLIN/TAZOBACTAM 3.375 GM in DEXTROSE 5% 100 ML IV SCH ×3 (03:20→20:17)
[2019-10-28] MEDS: SODIUM CHLORIDE 0.9% 1000ML 1,000 ML IV SCH (03:20)
[2019-10-28] MEDS ORDERED: cloNIDine HCL 0.1 MG TAB PO ONE (03:29)
[2019-10-28] MEDS: HEPARIN SOD 5,000 UNIT/0.5 ML VIAL SQ SCH ×3 (06:21→22:25)
--- NOTE | 2019-10-28 08:37 | Ultrasound Report ---
US liver CLINICAL HISTORY: enlarged GB on CTAP COMPARISON STUDY: CT of the abdomen and pelvis October 27, 2019. FINDINGS: Liver is sonographically normal. There is no biliary ductal dilatation. The common bile yeimi t measures 5 mm in caliber. The gallbladder is mildly distended. There is sludge and probable tiny st ones within the gallbladder. No sonographic Francois sign was reported. Gallbladder wall thickness is w ithin normal limits. There is trace pericholecystic fluid. The pancreas is within normal limits by so nography although the tail is slightly obscured. There is no right hydronephrosis. Note is made of a 1.7 cm cyst within the lower pole of the right kidney. IMPRESSION: 1. Mild gallbladder distention. Sludge and suspected tiny stones within the gallbladder. Trace perich olecystic fluid. No sonographic Francois sign. No wall thickening. These findings do not strongly sugge st acute cholecystitis although a hepatobiliary scan could be obtained if indicated. 2. No biliary ductal dilatation. ACT 112: Negative or not required by law. Electronically signed by: Brody Gay M.D. 10/28/2019 8:35 AM
[2019-10-28] MEDS: DOCUSATE SODIUM 100 MG CAP PO SCH ×2 (08:53→20:25)
[2019-10-28] MEDS: FOLIC ACID 1 MG TAB PO SCH (08:53)
[2019-10-28] MEDS: MULTIVITAMIN TAB PO SCH (08:53)
[2019-10-28] MEDS: THIAMINE HCL 100 MG TAB PO SCH (08:53)
[2019-10-28] MEDS: GABAPENTIN 300 MG CAP PO SCH ×3 (08:53→20:26)
[2019-10-28] MEDS: NICOTINE 21 MG/24 HR TDSY TD SCH (08:53)
[2019-10-28] MEDS: LIDOCAINE 5% 1 PATCH TD SCH (08:54)
[2019-10-28 09:03] LABS: Albumin Globulin Ratio 0.7 (0.9-2); Albumin Level 2.8 gm/dl (3.4-5.0); BUN Creatinine Ratio 12.3 (10-20); Bilirubin,Total 0.4 mg/dl (0.2-1); Calcium 9.1 mg/dl (8.5-10.1); Creatinine Clr Calc Pharmacy 35.4 ml/min; Est GFR (African American) 56.7; Globulin 3.9 gm/dl (2.5-4.0); Potassium 4.1 mmol/L (3.5-5.1); Total Protein 6.7 gm/dl (6.4-8.2)
[2019-10-28 09:19] LABS: Hematocrit (blood only) 39.1 % (42-52); Hemoglobin 12.8 g/dL (14.0-18.0); Mean Corpuscular Hemoglobin 32.5 pg (25-34); Mean Corpuscular Hgb Conc 32.7 g/dL (32-36); Mean Corpuscular Volume 99.2 fL (80-100); Mean Platelet Volume 9.1 fL (7.4-10.4); Platelet Count 419 K/uL (130-400); RDW Coefficient of Variation 13.6 % (11.5-14.5); RDW Standard Deviation 49.3 fL (36.4-46.3); Red Blood Count 3.94 M/uL (4.7-6.1); White Blood Count 12.94 K/uL (4.8-10.8)
[2019-10-28] MEDS ORDERED: SENNA 8.6 MG TAB PO ONE (10:13)
[2019-10-28] MEDS ORDERED: POLYETHYLENE (MIRALAX) 17 GM PACK PO ONE (10:14)
--- NOTE | 2019-10-28 10:18 | Hospitalist Progress Note ---
Date of Service October 28, 2019 Assessment & Plan (1) Sepsis: (2) Left lower lobe pneumonia: -as per admission notes "This is a 64-year-old male with PMH of cervical and lumbar disc disease, tobacco use disorder, CKD III, history of alcohol use disorder who has been sober for 3 weeks who presents to ED with altered mental status, nausea and back pain who was found to have sepsis secondary to possible aspiration pneumonia, complicated UTI and rectal stool ball; HR 113, WBC 21.99k, lactic acid 2.7, procal of 4.7. In setting of small ground glass densities within left lower lobe with concern of aspiration of vomit this morning; Also with evidence of complicated UTI and concern for possible bladder outlet obstruction secondary to enlarged prostate -initially received Zosyn and Vancomycin in the ED -lactic acidosis normalized with antibiotics and IV fluids -the Vancomycin was no longer given by admitting hospitalist team because MRSA screen negative -currently on Zosyn only, follow the admission blood and urine cultures (3) Acute metabolic encephalopathy: -In setting of potential infection, polypharmacy, and pain -admission CT head negative -patient at mental baseline currently (4) Constipation: -admission CT abdomen with Moderate to large amount well-formed stool seen throughout the colon. This includes a 6.7 cm rectal stool ball -bowel regimen, enema as needed (5) Abnormal CT of the abdomen: -CT abd/pelvis with mildly distended gallbladder. No gallbladder wall thickening -No biliary ductal dilatation. Ultrasound of the RUQ. Mild gallbladder distention. Sludge and suspected tiny stones within the gallbladder. Trace pericholecystic fluid. No sonographic Francois sign. No wall thickening. These findings do not strongly suggest acute cholecystitis (6) Lower back pain: -Longstanding chronic back pain, has been evaluated for surgery by Dr. Mota in the past and has been receiving epidural steroid injections by Dr. Kim for the past few months (patient was seen by Dr. Kim on October 14 for epidural steroid injection.) admitting team attributes some AMS on ED evaluation due to taking more Flexeril and oxycodone than prescribed, Also has been taking Valium, baclofen and gabapentin in the past few days -admission Lumbar spine CT without contrast shows no change compared to prior study. No acute fractures within the lumbar spine. Usci-cy-vngsudrk degenerative changes within the lower lumbar spine are again noted -because of history of epidurals, admitting doctor suggested MRI Lumbar spine to rule out potential abscess. Patient agrees to undertake this imaging scan -orthopedic spine consult -Continue tylenol and lidocaine patch (7) Acute kidney injury superimposed on CKD: acute kidney injury on CKD stage III -admission Creatinine elevated at 1.9 compared (baseline ~1.3) -after IV fluids, creatinine is downtrending. creatinine is 1.48 on 10/28/2019, will hold off continuous IV fluids for now -trend the renal function (8) Complicated UTI (urinary tract infection): -Grossly abnormal UA. Receiving zosyn for empiric coverage of possible aspiration PNA. Follow urine culture -Bladder scan Qshift because of outlet obstruction 2/[address] abd/pelvis. (9) History of alcohol use: History of drinking 6-10 beers daily for years, quit 3 weeks ago. Serum etoh level <3 -Given banana bag in ED -folic acid, thiamine and Multivitamins (10) Malnutrition: BMI of 17.4 and recent weight loss in setting of history of heavy alcohol use -Dietitian consult placed (11) Tobacco abuse: -Smokes 1 ppd. Cessation counseling ordered. Nicotine patch provided DVT Ppx: SQ heparin Code status: FULL Admission and Anticipated Discharge Date Admission Date: October 27, 2019 Subjective Patient reports generally feeling much more comfortable compared to admission day on 10/27/2019. He reports some right abdomen discomforts still. He has not made bowel movement yet while in the hospital. no vomiting. no fever. no chest pain. no shortness of breath. breathing on room air. denies problems with urination -because of history of epidurals, admitting doctor suggested MRI Lumbar spine to rule out potential abscess. Patient agrees to undertake this imaging scan Review of Systems Review of Systems: All systems reviewed & are unremarkable except as noted in Subjective Physical Exam Constitutional: comfortable Eyes: PERRL, conjunctivae normal, anicteric sclerae EOM intact bilaterally ENMT: external ear and nose normal, oropharynx normal Neck: trachea midline, no thyromegaly normal visual inspection Respiratory: normal respiratory effort, lungs clear to auscultation Cardiovascular: Rate/Rhythm: regular rate and regular rhythm Gastrointestinal (Abdomen): normal bowel sounds, soft, nontender, no hepatosplenomegaly Musculoskeletal: Head/Neck/Chest: normocephalic Neurologic: PERRL, EOMI, accommodation nl, no face palsy, no dysarthria moves all extremities Psychiatric: A+Ox3, euthymic affect Results & Data Results & Data ([facility]) Vital Signs (Past 12 Hours) Vital Signs Temp Pulse Resp BP Pulse Ox 10/28/19 07:06 36.6 C 81 22 163/78 H 98 10/28/19 06:23 170/84 H 10/28/19 03:24 186/82 H 10/28/19 03:22 36.7 C 79 22 188/89 H 96 10/27/19 22:35 88 175/76 H 100
[2019-10-28] MEDS ORDERED: GADOBUTROL 30ML VIAL IV ONE (13:17)
[2019-10-28] MEDS ORDERED: SODIUM CHLORIDE 0.9% 1000ML 1,000 ML IV SCH (13:30)
--- NOTE | 2019-10-28 13:36 | Magnetic Resonance Report ---
MRI OF THE LUMBAR SPINE WITH AND WITHOUT CONTRAST CLINICAL HISTORY: Back pain. Recent fall. Spinal injections. Evaluate for abscess. COMPARISON STUDY: MRI of the cervical spine April 24, 2018. CT of the cervical spine October 26. TECHNIQUE: Utilizing a 1.5 Veena magnet and dedicated coil, multiplanar, multiecho imaging of the shirley ar spine was performed before and after uneventful IV administration of 5.5 mL of Gadavist. FINDINGS: For purposes of numbering on this exam, the L5-S1 disc space is assigned to axial image 2629. Moderat e loss of height of the anterior aspect of the superior endplate of L2 is unchanged since MRI of 2018. There is no acute fracture. There is no suspicious marrow replacement. A 1 cm enhancin g T2 hyperintense lesion within the L5 vertebral body probably reflects an atypical hemangioma. This is unchanged since MRI April 24, 2018. No intracanalicular mass or fluid collection is present. Pa ravertebral soft tissues are unremarkable. L1-2: There is mild disc space narrowing. There is mild facet arthrosis and ligamentous hypertrophy. The central canal and neural foramen are patent. L2-3: The central canal and neural foramen are patent. L3-4: There is disc space narrowing with ligamentous hypertrophy and facet arthrosis. There is mild d uring of the central canal, lateral recesses and neural foramen. L4-5: There is disc space narrowing with disc bulge, ligamentous hypertrophy and facet arthrosis. The re is slight narrowing of the central canal and lateral recesses with moderate right and mild left ne ural foraminal stenosis. L5-S1: There is disc space narrowing with disc bulge and facet arthrosis. There is mild during of the lateral recesses and moderate narrowing of both neural foramen. IMPRESSION: 1. No acute process within the lumbar spine by MRI. No abscess. No evidence for discitis/osteomyeliti s. 2. No significant change in moderate multilevel degenerative disc disease and facet arthrosis within lumbar spine since MRI of April 24, 2018. Mild multilevel central canal stenosis and moderate mult ilevel neural foraminal stenosis. ACT 112: Negative or not required by law. Electronically signed by: Brody Gay M.D. 10/28/2019 1:35 PM
[2019-10-28] MEDS: SENNA 8.6 MG TAB PO SCH (20:25)
[2019-10-28] MEDS: POLYETHYLENE (MIRALAX) 17 GM PACK PO PRN (20:25)
[2019-10-29] MEDS ORDERED: KETOROLAC TROMETHAMINE 15 MG/ML VIAL IV ONE (02:18)
[2019-10-29] MEDS: PIPERACILLIN/TAZOBACTAM 3.375 GM in DEXTROSE 5% 100 ML IV SCH ×3 (03:51→19:33)
[2019-10-29] MEDS: CYCLOBENZAPRINE HCL 10 MG TAB PO PRN ×2 (04:36→16:17)
[2019-10-29] MEDS: HEPARIN SOD 5,000 UNIT/0.5 ML VIAL SQ SCH ×3 (05:04→20:23)
[2019-10-29] MEDS ORDERED: OXYCODONE HCL IR 5 MG TAB (IMMEDIATE RELEASE) PO STA (05:24)
[2019-10-29 06:32] LABS: Hematocrit (blood only) 33.6 % (42-52); Hemoglobin 11.2 g/dL (14.0-18.0); Mean Corpuscular Hemoglobin 32.3 pg (25-34); Mean Corpuscular Hgb Conc 33.3 g/dL (32-36); Mean Corpuscular Volume 96.8 fL (80-100); Mean Platelet Volume 8.9 fL (7.4-10.4); Platelet Count 322 K/uL (130-400); RDW Coefficient of Variation 13.7 % (11.5-14.5); RDW Standard Deviation 48.4 fL (36.4-46.3); Red Blood Count 3.47 M/uL (4.7-6.1); White Blood Count 13.25 K/uL (4.8-10.8)
[2019-10-29 06:51] LABS: Albumin Level 2.6 gm/dl (3.4-5.0); BUN Creatinine Ratio 15.9 (10-20); Calcium 8.4 mg/dl (8.5-10.1); Creatinine Clr Calc Pharmacy 41.1 ml/min; Est GFR (African American) 59.6; Est GFR (Non-African American) 51.5; Potassium 4.3 mmol/L (3.5-5.1)
[2019-10-29 06:54] LABS: Albumin Globulin Ratio 0.7 (0.9-2); Bilirubin,Total 0.2 mg/dl (0.2-1); Globulin 3.7 gm/dl (2.5-4.0); Total Protein 6.3 gm/dl (6.4-8.2)
--- NOTE | 2019-10-29 08:12 | Hospitalist Progress Note ---
Date of Service October 29, 2019 Assessment & Plan (1) Sepsis: (2) Left lower lobe pneumonia: -as per admission notes "This is a 64-year-old male with PMH of cervical and lumbar disc disease, tobacco use disorder, CKD III, history of alcohol use disorder who has been sober for 3 weeks who presents to ED with altered mental status, nausea and back pain who was found to have sepsis secondary to possible aspiration pneumonia, complicated UTI and rectal stool ball; HR 113, WBC 21.99k, lactic acid 2.7, procal of 4.7. In setting of small ground glass densities within left lower lobe with concern of aspiration of vomit this morning; Also with evidence of complicated UTI and concern for possible bladder outlet obstruction secondary to enlarged prostate -initially received Zosyn and Vancomycin in the ED -lactic acidosis normalized with antibiotics and IV fluids -the Vancomycin was no longer given by admitting hospitalist team because MRSA screen negative -currently on Zosyn only, - so far follow the admission blood culture with no growth to day and admission urine culture with pinpoint growth. repeat CXR ordered on 10/29/2019 (3) Acute metabolic encephalopathy: -In setting of potential infection, polypharmacy, and pain -admission CT head negative -patient at mental baseline currently (4) Constipation: -admission CT abdomen with Moderate to large amount well-formed stool seen throughout the colon. This includes a 6.7 cm rectal stool ball -bowel regimen, enema as needed (5) Abnormal CT of the abdomen: -CT abd/pelvis with mildly distended gallbladder. No gallbladder wall thickening -No biliary ductal dilatation. Ultrasound of the RUQ. Mild gallbladder distention. Sludge and suspected tiny stones within the gallbladder. Trace pericholecystic fluid. No sonographic Francois sign. No wall thickening. These findings do not strongly suggest acute cholecystitis (6) Lower back pain: -Longstanding chronic back pain, has been evaluated for surgery by Dr. Mota in the past and has been receiving epidural steroid injections by Dr. Kim for the past few months (patient was seen by Dr. Kim on October 14 for epidural steroid injection.) admitting team attributes some AMS on ED evaluation due to taking more Flexeril and oxycodone than prescribed, Also has been taking Valium, baclofen and gabapentin in the past few days -admission Lumbar spine CT without contrast shows no change compared to prior study. No acute fractures within the lumbar spine. [id number] degenerative changes within the lower lumbar spine are again noted -because of history of epidurals, admitting doctor suggested MRI Lumbar spine to rule out potential abscess. Patient agrees to undertake this imaging scan -orthopedic spine consult -Continue tylenol and lidocaine patch (7) Acute kidney injury superimposed on CKD: acute kidney injury on CKD stage III -admission Creatinine elevated at 1.9 compared (baseline ~1.3) -after IV fluids, creatinine is downtrending. creatinine is 1.48 on 10/28/2019, will hold off continuous IV fluids for now -creatinine 1.43 on 10/29/2019 (8) Complicated UTI (urinary tract infection): -Grossly abnormal UA. Receiving zosyn for empiric coverage of possible aspiration PNA -patient can urinate -admission urine culture with pinpoint growth. (9) History of alcohol use: History of drinking 6-10 beers daily for years, quit 3 weeks ago. Serum etoh level <3 -Given banana bag in ED -folic acid, thiamine and Multivitamins (10) Malnutrition: BMI of 17.4 and recent weight loss in setting of history of heavy alcohol use -Dietitian consult placed (11) Tobacco abuse: -Smokes 1 ppd. Cessation counseling ordered. Nicotine patch provided DVT Ppx: SQ heparin Code status: FULL Admission and Anticipated Discharge Date Admission Date: October 27, 2019 Subjective No bowel movements on this hospital stay as of yet but patient feeling urges to go. Back pain generally controlled. yesterday abdominal pain not present. no distress. no vomiting. no dizziness. no chest pain. discussed with patient that he is not on blood pressure medications at home. he agrees to starting blood pressure medications because of hypertension. Review of Systems Review of Systems: All systems reviewed & are unremarkable except as noted in Subjective Physical Exam Constitutional: comfortable Eyes: PERRL, conjunctivae normal, anicteric sclerae EOM intact bilaterally ENMT: external ear and nose normal, oropharynx normal Neck: trachea midline, no thyromegaly normal visual inspection Respiratory: normal respiratory effort, lungs clear to auscultation Cardiovascular: Rate/Rhythm: regular rate and regular rhythm Gastrointestinal (Abdomen): normal bowel sounds, soft, nontender, no hepatosplenomegaly Musculoskeletal: Head/Neck/Chest: normocephalic Neurologic: PERRL, EOMI, accommodation nl, no face palsy, no dysarthria moves all extremities Psychiatric: A+Ox3, euthymic affect Results & Data Results & Data ([facility]) Vital Signs (Past 12 Hours) Vital Signs Temp Pulse Resp BP Pulse Ox 10/29/19 06:38 36.4 C L 72 19 178/70 H 99 10/29/19 03:39 36.8 C 80 19 154/73 H 100 10/28/19 23:03 36.7 C 85 19 145/72 H 100
[2019-10-29] MEDS: GABAPENTIN 300 MG CAP PO SCH ×3 (08:20→20:23)
[2019-10-29] MEDS: SENNA 8.6 MG TAB PO SCH ×2 (08:20→20:23)
[2019-10-29] MEDS: MULTIVITAMIN TAB PO SCH (08:21)
[2019-10-29] MEDS: LIDOCAINE 5% 1 PATCH TD SCH (08:21)
[2019-10-29] MEDS: FOLIC ACID 1 MG TAB PO SCH (08:22)
[2019-10-29] MEDS: DOCUSATE SODIUM 100 MG CAP PO SCH ×2 (08:22→20:23)
[2019-10-29] MEDS: THIAMINE HCL 100 MG TAB PO SCH (08:22)
[2019-10-29] MEDS: POLYETHYLENE (MIRALAX) 17 GM PACK PO PRN (08:26)
--- NOTE | 2019-10-29 09:11 | Electrocardiogram Report ---
Test Reason : Blood Pressure : / mmHG Vent. Rate : 109 BPM Atrial Rate : 109 BPM P-R Int : 162 ms QRS Dur : 082 ms QT Int : 330 ms P-R-T Axes : 082 095 071 degrees QTc Int : 444 ms Sinus tachycardia Biatrial enlargement Rightward axis Pulmonary disease pattern Abnormal ECG When compared with ECG of 28-JUL-2019 22:10, Vent. rate has increased BY 38 BPM Confirmed by Brandon Toscano ([id number]) on 10/29/2019 9:11:43 AM Referred By: ED Confirmed By:Brandon Toscano
--- NOTE | 2019-10-29 09:24 | XRay Report ---
XR chest 2V PA/lateral HISTORY: Weakness. follow lung infiltrates COMPARISON: Chest 10/27/2019. FINDINGS: The lungs are hyperexpanded with mild apical predominant emphysematous changes. No new foca l lung consolidations to suggest pneumonia. No interpolar edema. No pleural effusions. No pneumothora x. Old, healed left-sided rib fractures. IMPRESSION: No acute process within the chest. Emphysema. ACT 112: Negative or not required by law. Electronically signed by: Jose Rafael Noe M.D. 10/29/2019 9:22 AM
--- NOTE | 2019-10-29 09:53 | Consultation ---
Date of Consultation October 29, 2019 Assessment & Plan (1) Degenerative joint disease (DJD) of lumbar spine: Images and plan of care has been reviewed with Dr. Mota. Patient has chronic lower back pain. In light of his acute medical issues, he is a very poor surgical candidate. Patient reports he is not interested in pursuing surgery either. He has been quite happy with pain management with Dr. Kim. He has been encouraged to continue follow-up with Dr. Kim once he is discharged. I would recommend physical therapy while he is an inpatient with the focus being on bilateral lower extremity strengthening. Would strongly recommend he continue this on an outpatient basis as well. We will see him back on an as- needed basis in the office. Will sign off for now. Supervising Physician Co-Signing Physician Notes Dr. Daniel Mota History of Present Illness Is a pleasant 64-year-old gentleman that we are asked to see in consultation regarding his chronic lower back pain. Patient is currently admitted to the hospital with aspiration pneumonia/sepsis, complicated UTI, constipation. Patient reports he had an evaluation with Dr. Mota well over a year ago. Si nce then he has been seeing Dr. Kim for pain management injections at [facility]. He has received multiple injections over the past year and each provides roughly 2 to 3 months of relief. He reports his last injection was October 14. RePorts he probably was not getting a lot of relief but in part relates this to his abdominal pain. At today's visit he is feeling better. He denies any true radicular pain. Is taking multiple medications at home including Flexeril and oxycodone. He ambulates independently at home. States he has been much homebound over the past 6 months though due to lower extremity weakness. Bowel and bladder have acute issues but no loss of control, no perineal numbness. Attending Physician: Himanshu Ledesma MD Allergies Allergy/AdvReac Type Severity Reaction Status Date / Time No Known Allergies Allergy Verified 10/27/19 13:15 Home Medications Home Medications Medication Instructions Recorded Confirmed Type [facility] Arthritis Pill 600 mg PO UD PRN 07/28/19 10/27/19 History gabapentin [Neurontin] 300 mg PO TID 07/28/19 10/27/19 History sulindac 200 mg PO BID 07/28/19 10/27/19 History docusate sodium [Colace] 100 mg PO BID #60 cap 08/03/19 10/27/19 Rx lidocaine [Lidoderm] 1 patch TOP DAILY #15 ea 08/03/19 10/27/19 Rx sennosides [Senokot] 8.6 mg PO HS #30 tab 08/03/19 10/27/19 Rx diazepam [Valium] 5 mg PO BID PRN #7 tab 10/13/19 10/27/19 Rx aluminum hydrox-magnesium carb 15 ml PO PCHS 10/27/19 10/27/19 History [Gaviscon] baclofen 10 mg PO HS 10/27/19 10/27/19 History cyclobenzaprine 10 mg PO TID PRN 10/27/19 10/27/19 History meloxicam 15 mg PO DAILY 10/27/19 10/27/19 History oxycodone-acetaminophen 1 tab PO Q6H PRN 10/27/19 10/27/19 History Patient History Medical History Chronic low back pain COPD (chronic obstructive pulmonary disease) Degenerative joint disease (DJD) of lumbar spine Lumbar degenerative disc disease Neuropathy Pneumothorax Rib fracture Tobacco abuse Surgical History History of cataract surgery S/P chest tube placement Family History Other Hypertension Social History Smoking Status: Current every day smoker packs per day: 1; Cigarettes Per Day: 20; Second Hand Exposure: No; Do You Dip or Chew Tobacco: No; Tobacco Cessation Education Requested by Patient: No Hx Alcohol Use: Yes Alcohol type: beer Alcohol Intake Frequency Comment: used to drink 6-10 beers daily but quit 3 weeks ago Hx Substance Use: Yes Last Used Substance: Hours (ago) Last Used Substance Other:: 24 - 12 hours ago Preferred Language: Czech Visual Impairment: No Limitations Hearing Ability: Normal Ux Researcher Required: No Beliefs That Will Affect Care: None marital status: Current Living Situation: Spouse Other Information That Helps Us Care for You: No Feels Safe at Home: Yes Review of Systems Review of Systems: All systems reviewed & are unremarkable except as noted in HPI & below Physical Exam Physical Exam: Patient seen in room 216. He is alert and oriented x3. He is cooperative exam. He is in no obvious distress. He is lying in bed. Strength is 5 5 bilateral EHL, dorsiflexion, plantarflexion, quadriceps, hamstrings, hip flexors, hip abductor's and hip adductor's. Negative tension signs. Negative logrolling bilaterally. Constitutional: WD/WN, vitals as above + cachectic Eyes: normal visual souza by confrontation ENMT: external ear and nose normal, oropharynx normal Neck: normal visual inspection Respiratory: normal respiratory effort Cardiovascular: Vessels: normal peripheral pulses Extremities: normal capillary refill Chest (Breasts): Chest: normal inspection of chest Gastrointestinal (Abdomen): Inspection/Auscultation: abdomen normal to inspection Musculoskeletal: no cyanosis or clubbing, extremities motor strength 5/5 Extremities: strength 5/5 throughout Skin: no rashes, warm and dry Neurologic: normal touch/pain/proprioception and moves all extremities Psychiatric: A+Ox3, euthymic affect Results & Data ([facility]) Vital Signs (Past 12 Hours) Vital Signs Temp Pulse Resp BP Pulse Ox 10/29/19 06:38 36.4 C L 72 19 178/70 H 99 10/29/19 03:39 36.8 C 80 19 154/73 H 100 10/28/19 23:03 36.7 C 85 19 145/72 H 100 Diagnostic Findings [place], [phone] Magnetic Resonance Report Patient: GEORGIE NOBLE RAdgood Date: 10/27/19 MR#: [id number]: [address] [place] [address] Acct ID:[id number]: Date: 5City Zip: [place] [address] Age: 64Location: 2S Sex: MRoom/Bed: E2161 Att Phy: Himanshu Ledesma, MDDiagnosis: SEPSIS 2/2 PNA/PNEUMONITIS,LUMBAR SPINE PAIN Alia Phy: Marlon Santana DOService Date: 10/28/19 Fam Phy:Interpreting Phy: Brody Gay MD Admit Phy: Ishaan Raymond MD Ordering Phy: Himanshu Ledesma MD cc: ~ MRI OF THE LUMBAR SPINE WITH AND WITHOUT CONTRAST CLINICAL HISTORY: Back pain. Recent fall. Spinal injections. Evaluate for abscess. COMPARISON STUDY: MRI of the cervical spine April 24, 2018. CT of the cervical spine October 27, 2019. TECHNIQUE: Utilizing a 1.5 Veena magnet and dedicated coil, multiplanar, multiecho imaging of the lumbar spine was performed before and after uneventful IV administration of 5.5 mL of Gadavist. FINDINGS: For purposes of numbering on this exam, the L5-S1 disc space is assigned to axial image 2629. Moderate loss of height of the anterior aspect of the superior endplate of L2 is unchanged since MRI of April 26, 2018. There is no acute fracture. There is no suspicious marrow replacement. A 1 cm enhancing T2 hyperintense lesion within the L5 vertebral body probably reflects an atypical hemangioma. This is unchanged since MRI April 24, 2018. No intracanalicular mass or fluid collection is present. Paravertebral soft tissues are unremarkable. L1-2: There is mild disc space narrowing. There is mild facet arthrosis and ligamentous hypertrophy. The central canal and neural foramen are patent. L2-3: The central canal and neural foramen are patent. L3-4: There is disc space narrowing with ligamentous hypertrophy and facet arthrosis. There is mild during of the central canal, lateral recesses and neural foramen. L4-5: There is disc space narrowing with disc bulge, ligamentous hypertrophy and facet arthrosis. There is slight narrowing of the central canal and lateral recesses with moderate right and mild left neural foraminal stenosis. L5-S1: There is disc space narrowing with disc bulge and facet arthrosis. There is mild during of the lateral recesses and moderate narrowing of both neural foramen. IMPRESSION: 1. No acute process within the lumbar spine by MRI. No abscess. No evidence for discitis/osteomyelitis. 2. No significant change in moderate multilevel degenerative disc disease and f acet arthrosis within lumbar spine since MRI of April 24, 2018. Mild multilevel central canal stenosis and moderate multilevel neural foraminal stenosis. ACT 112: Negative or not required by law. Electronically signed by: Brody Gay M.D. 10/28/2019 1:35 PM Dictated: 10/28/19 1328 Transcribed: 10/28/19 1328
[2019-10-29] MEDS: AMLODIPINE BESYLATE 5 MG TAB PO SCH (11:01)
[2019-10-29] MEDS ORDERED: NITROGLYCERIN SL 0.4 MG/TAB TAB SL STA (11:19)
[2019-10-29] MEDS ORDERED: NITROGLYCERIN SL 0.4 MG/TAB TAB ONE (11:22)
[2019-10-29] MEDS: NICOTINE 21 MG/24 HR TDSY TD SCH (11:32)
[2019-10-29] MEDS ORDERED: NITROGLYCERIN 2% OINTMENT 30GM TUBE EXT ONE (11:57)
[2019-10-29] MEDS ORDERED: NITROGLYCERIN 2% OINTMENT 30GM TUBE ONE (13:59)
[2019-10-29] MEDS ORDERED: MAGNESIUM CITRATE 296 ML/BTL PO STA (14:17)
--- NOTE | 2019-10-29 15:18 | Electrocardiogram Report ---
Test Reason : Blood Pressure : / mmHG Vent. Rate : 076 BPM Atrial Rate : 076 BPM P-R Int : 144 ms QRS Dur : 072 ms QT Int : 352 ms P-R-T Axes : 070 075 066 degrees QTc Int : 396 ms Poor data quality, interpretation may be adversely affected Normal sinus rhythm Abnormal ECG When compared with ECG of 27-OCT-2019 11:09, No significant change Confirmed by Brandon Toscano ([id number]) on 10/29/2019 3:18:37 PM Referred By: REFERRED SELF Confirmed By:Brandon Toscano
--- NOTE | 2019-10-29 15:23 | Electrocardiogram Report ---
Test Reason : Blood Pressure : / mmHG Vent. Rate : 077 BPM Atrial Rate : 077 BPM P-R Int : 138 ms QRS Dur : 082 ms QT Int : 366 ms P-R-T Axes : 074 078 067 degrees QTc Int : 414 ms Normal sinus rhythm Normal ECG When compared with ECG of 29-OCT-2019 11:49, No significant change was found Confirmed by Brandon Toscano ([id number]) on 10/29/2019 3:23:12 PM Referred By: REFERRED SELF Confirmed By:Brandon Toscano
[2019-10-30] MEDS: PIPERACILLIN/TAZOBACTAM 3.375 GM in DEXTROSE 5% 100 ML IV SCH (03:03)
[2019-10-30] MEDS: HEPARIN SOD 5,000 UNIT/0.5 ML VIAL SQ SCH ×3 (06:39→21:14)
[2019-10-30 07:17] LABS: Hematocrit (blood only) 36.8 % (42-52); Hemoglobin 12.3 g/dL (14.0-18.0); Mean Corpuscular Hemoglobin 32.4 pg (25-34); Mean Corpuscular Hgb Conc 33.4 g/dL (32-36); Mean Corpuscular Volume 96.8 fL (80-100); Mean Platelet Volume 9.1 fL (7.4-10.4); Platelet Count 415 K/uL (130-400); RDW Coefficient of Variation 13.6 % (11.5-14.5); RDW Standard Deviation 47.6 fL (36.4-46.3); White Blood Count 12.05 K/uL (4.8-10.8)
[2019-10-30 08:57] LABS: Albumin Globulin Ratio 0.7 (0.9-2); Albumin Level 3.1 gm/dl (3.4-5.0); BUN Creatinine Ratio 10.1 (10-20); Bilirubin,Total 0.3 mg/dl (0.2-1); Calcium 9.7 mg/dl (8.5-10.1); Creatinine Clr Calc Pharmacy 38.8 ml/min; Est GFR (African American) 54.9; Est GFR (Non-African American) 47.4; Globulin 4.6 gm/dl (2.5-4.0); Potassium 3.3 mmol/L (3.5-5.1); Total Protein 7.7 gm/dl (6.4-8.2)
[2019-10-30] MEDS: DOCUSATE SODIUM 100 MG CAP PO SCH ×2 (08:57→20:38)
[2019-10-30] MEDS: cefTRIAXone SODIUM 1,000 MG in DEXTROSE 5% 50 ML IV SCH (08:57)
[2019-10-30] MEDS: SENNA 8.6 MG TAB PO SCH ×2 (08:58→20:38)
[2019-10-30] MEDS: THIAMINE HCL 100 MG TAB PO SCH (08:58)
[2019-10-30] MEDS: MULTIVITAMIN TAB PO SCH (08:58)
[2019-10-30] MEDS: FOLIC ACID 1 MG TAB PO SCH (08:59)
[2019-10-30] MEDS: AMLODIPINE BESYLATE 5 MG TAB PO SCH (08:59)
[2019-10-30] MEDS: LIDOCAINE 5% 1 PATCH TD SCH (09:00)
[2019-10-30] MEDS: GABAPENTIN 300 MG CAP PO SCH ×3 (09:01→20:27)
[2019-10-30] MEDS: NICOTINE 21 MG/24 HR TDSY TD SCH (09:01)
[2019-10-30] MEDS ORDERED: POTASSIUM CHLORIDE 20 MEQ TABCR PO STA (12:17)
[2019-10-30] MEDS ORDERED: POTASSIUM CHLORIDE / WTR 10 MEQ/100 ML PLCT IV ONE (12:30)
--- NOTE | 2019-10-30 13:00 | Hospitalist Progress Note ---
Date of Service October 30, 2019 Assessment & Plan (1) Sepsis: (2) Left lower lobe pneumonia: -as per admission notes "This is a 64-year-old male with PMH of cervical and lumbar disc disease, tobacco use disorder, CKD III, history of alcohol use disorder who has been sober for 3 weeks who presents to ED with altered mental status, nausea and back pain who was found to have sepsis secondary to possible aspiration pneumonia, complicated UTI and rectal stool ball; HR 113, WBC 21.99k, lactic acid 2.7, procal of 4.7. In setting of small ground glass densities within left lower lobe with concern of aspiration of vomit this morning; Also with evidence of complicated UTI and concern for possible bladder outlet obstruction secondary to enlarged prostate -initially received Zosyn and Vancomycin in the ED -lactic acidosis normalized with antibiotics and IV fluids -the Vancomycin was no longer given by admitting hospitalist team because MRSA screen negative -follow up CXR on 10/29/2019 shows resolution of admission infiltrates while patient had been on IV Zosyn -switched to IV ceftriaxone and oral Doxycycline BID starting on 10/30/2019 (3) Complicated UTI (urinary tract infection): -Grossly abnormal UA. Receiving zosyn for empiric coverage of possible aspiration PNA -patient can urinate -admission urine culture with pinpoint growth, which then speciated as Klebisella pneumonia. this is notable because patient had signs of pneumonia on admission but admission blood cultures are negative. blood cultures are repeated are 10/30/2019. urine analysis ordered again on 10/30/2019. antibiotics from IV Zosyn switched to IV ceftriaxone and oral Doxycycline BID starting on 10/30/2019 (4) Acute metabolic encephalopathy: -In setting of potential infection, polypharmacy, and pain -admission CT head negative -patient at mental baseline currently (5) Abnormal CT of the abdomen: -CT abd/pelvis with mildly distended gallbladder. No gallbladder wall thickening -No biliary ductal dilatation. Ultrasound of the RUQ. Mild gallbladder distention. Sludge and suspected tiny stones within the gallbladder. Trace pericholecystic fluid. No sonographic Francois sign. No wall thickening. These findings do not strongly suggest acute cholecystitis (6) Lower back pain: -Longstanding chronic back pain, has been evaluated for surgery by Dr. Mota in the past and has been receiving epidural steroid injections by Dr. Kim for the past few months (patient was seen by Dr. Kim on October 14 for epidural steroid injection.) admitting team attributes some AMS on ED evaluation due to taking more Flexeril and oxycodone than prescribed, Also has been taking Valium, baclofen and gabapentin in the past few days -admission Lumbar spine CT without contrast shows no change compared to prior study. No acute fractures within the lumbar spine. [id number] degenerative changes within the lower lumbar spine are again noted -because of history of epidurals, admitting doctor suggested MRI Lumbar spine to rule out potential abscess. Patient agrees to undertake this imaging scan -back pain improving and no acute interventions as per inpatient orthopedics, PT/OT consult were requested by case management services -patient advised on minimizing future use of pain medications to prevent recurrent drug-induced constipation, continue scheduled gabapentin, continue prn Flexeril, resume home medication of baclofen qhs (7) Constipation: Constipation (likely drug induced from opioids) -admission CT abdomen with Moderate to large amount well-formed stool seen throughout the colon. This includes a 6.7 cm rectal stool ball -after aggressive bowel regimen since admission, patient able to make multiple bowel movements on 10/29/2019, patient also had artifacts on EKG on 10/30/2019 because he was writhing in pain while EKG was done to rule out pain from cardiac causes - he does not have cardiac ischemia based on negative troponin and accurate re-assessment with EKG when he was not in pain -minimize narcotic pain medications as discussed above (8) History of alcohol use: History of drinking 6-10 beers daily for years, quit 3 weeks ago. Serum etoh level <3 -Given banana bag in ED; folic acid, thiamine and Multivitamins -no evidence of alcohol withdrawal to date (9) Acute kidney injury superimposed on CKD: acute kidney injury on CKD stage III -admission Creatinine elevated at 1.9 compared (baseline ~1.3) -after IV fluids, creatinine is downtrending. creatinine is 1.48 on 10/28/2019, will hold off continuous IV fluids for now -creatinine 1.43 on 10/29/2019 and around 1.52 on 10/30/2019, additional IV fluids ordered, monitor the labs , minimize NSAIDs Hypertension -started on amlodipine on this admission, continue for now (10) Malnutrition: Moderate protein-calorie malnutrition -BMI of 17.4 and recent weight loss in setting of history of heavy alcohol use -Dietitian consult placed; Review of folder gluer operator consult notes pt with 6.8% wt loss in less than one month. Per folder gluer operator consult, the patient meets criteria for moderate malnutrition evidence by moderate degree of inadequate food and fluid intake and severe wt loss. -patient encouraged to take the BOOST supplements UTI (urinary tract infection) -follow up CXR on 10/29/2019 shows resolution of admission infiltrates -urine culture from admission now with gram negative results - continue IV antibiotics -abdominal pain improved with bowel movements on 10/29/2019 (11) Tobacco abuse: -Smokes 1 ppd. -Nicotine patch provided DVT Ppx: SQ heparin Code status: FULL Admission and Anticipated Discharge Date Admission Date: October 27, 2019 Subjective Patient reported back spasm overnight. otherwise no acute abdominal pain. no distress on exam. patient did not drink yesterday's magnesium citrate because he made bowel movements. He reports he was seen by physical therapist. His at bedside very concerned about patient's overall health. Medical doctor gave assurances that his current exams are improved and explained to her the hospital course and plans in presence of the patient patient breathing on room air. no acute telemetry events overnight. answers all questions appropriately Review of Systems Review of Systems: All systems reviewed & are unremarkable except as noted in Subjective Physical Exam Constitutional: comfortable Eyes: PERRL, conjunctivae normal, anicteric sclerae EOM intact bilaterally ENMT: external ear and nose normal, oropharynx normal Neck: trachea midline, no thyromegaly normal visual inspection Respiratory: normal respiratory effort, lungs clear to auscultation Cardiovascular: Rate/Rhythm: regular rate and regular rhythm Gastrointestinal (Abdomen): normal bowel sounds, soft, nontender, no hepatosplenomegaly Musculoskeletal: Head/Neck/Chest: normocephalic Neurologic: PERRL, EOMI, accommodation nl, no face palsy, no dysarthria moves all extremities Psychiatric: A+Ox3, euthymic affect Results & Data Results & Data ([facility]) Vital Signs (Past 12 Hours) Vital Signs Temp Pulse Resp BP Pulse Ox 10/30/19 10:56 36.6 C 88 18 122/70 98 10/30/19 06:20 36.6 C 107 H 20 103/70 97 10/30/19 03:49 36.6 C 95 H 19 121/66 97
[2019-10-30] MEDS ORDERED: ACETAMINOPHEN 325 MG TAB PO PRN (13:06)
[2019-10-30] MEDS ORDERED: SODIUM CHLORIDE 0.9% 500 ML IV SCH (13:15)
[2019-10-30] MEDS ORDERED: DOXYCYCLINE HYCLATE 100 MG CAP PO STA (13:16)
[2019-10-30 13:45] LABS: Appearance Urine Clear (Clear); Bacteria Urine Automated Negative (Negative); Bilirubin Urine Negative (Negative); Blood Urine 1+ (Negative); Color Urine Yellow; Glucose Urine UA Negative (Negative); Ketones Urine Negative (Negative); Leukocyte Esterase Urine Trace (Negative); Nitrite Urine Negative (Negative); Protein Urine 1+ (Negative); Specific Gravity Urine 1.012 (1.000-1.030); Urobilinogen Urine Negative (Negative); pH Urine 6.5 (4.5-7.5)
[2019-10-30] MEDS: CYCLOBENZAPRINE HCL 10 MG TAB PO PRN (16:56)
[2019-10-30] MEDS: DOXYCYCLINE HYCLATE 100 MG CAP PO SCH (20:27)
[2019-10-30] MEDS ORDERED: BACLOFEN 10 MG TAB PO SCH (21:00)
[2019-10-31] MEDS: CYCLOBENZAPRINE HCL 10 MG TAB PO PRN ×2 (00:40→13:07)
[2019-10-31 03:11] LABS: 7-Aminoclonaz, Confirm NEGATIVE ng/mL (<25); Hydro-Alp Ur, GC/MS NEGATIVE ng/mL (<25); Hydroxyethylflurazepam, Conf NEGATIVE ng/mL (<50); Hydroxymidazolam Ur, GC/MS NEGATIVE ng/mL (<50); Hydroxytriazolam NEGATIVE ng/mL (<50); Lorazepam, Ur GC/MS NEGATIVE ng/mL (<50); Nordiazepam, Confirm 76 ng/mL (<50); Oxazepam Ur, GC/MS 183 ng/mL (<50); Temazepam, Confirm 127 ng/mL (<50)
[2019-10-31] MEDS: HEPARIN SOD 5,000 UNIT/0.5 ML VIAL SQ SCH (06:25)
[2019-10-31 07:13] LABS: Basophils # (auto) 0.08 K/uL (0-0.2); Basophils % (auto) 0.7 %; Eosinophils # (auto) 0.59 K/uL (0-0.5); Eosinophils % (auto) 4.8 %; Hematocrit (blood only) 34.7 % (42-52); Hemoglobin 11.8 g/dL (14.0-18.0); Immature Granulocytes # (auto) 0.08 K/uL (0.00-0.02); Immature Granulocytes % (auto) 0.7 %; Lymphocytes # (auto) 2.74 K/uL (1.2-3.4); Lymphocytes % (auto) 22.3 %; Mean Corpuscular Hemoglobin 32.5 pg (25-34); Mean Corpuscular Volume 95.6 fL (80-100); Mean Platelet Volume 9.8 fL (7.4-10.4); Monocytes # (auto) 1.29 K/uL (0.11-0.59); Monocytes % (auto) 10.5 %; Platelet Count 462 K/uL (130-400); RDW Coefficient of Variation 13.6 % (11.5-14.5); RDW Standard Deviation 46.9 fL (36.4-46.3); Red Blood Count 3.63 M/uL (4.7-6.1); White Blood Count 12.28 K/uL (4.8-10.8)
[2019-10-31 07:43] LABS: BUN Creatinine Ratio 13.9 (10-20); Calcium 9.4 mg/dl (8.5-10.1); Creatinine Clr Calc Pharmacy 42.3 ml/min; Est GFR (African American) 68.3; Est GFR (Non-African American) 58.9; Potassium 4.7 mmol/L (3.5-5.1)
[2019-10-31] MEDS: cefTRIAXone SODIUM 1,000 MG in DEXTROSE 5% 50 ML IV SCH (07:48)
[2019-10-31] MEDS: DOXYCYCLINE HYCLATE 100 MG CAP PO SCH (07:51)
[2019-10-31] MEDS: AMLODIPINE BESYLATE 5 MG TAB PO SCH (07:51)
[2019-10-31] MEDS: THIAMINE HCL 100 MG TAB PO SCH (07:51)
[2019-10-31] MEDS: MULTIVITAMIN TAB PO SCH (07:52)
[2019-10-31] MEDS: FOLIC ACID 1 MG TAB PO SCH (07:52)
[2019-10-31] MEDS: DOCUSATE SODIUM 100 MG CAP PO SCH (07:52)
[2019-10-31] MEDS: SENNA 8.6 MG TAB PO SCH (07:53)
[2019-10-31] MEDS: LIDOCAINE 5% 1 PATCH TD SCH (07:53)
[2019-10-31] MEDS: NICOTINE 21 MG/24 HR TDSY TD SCH (07:53)
[2019-10-31] MEDS: GABAPENTIN 300 MG CAP PO SCH ×2 (10:07→14:10)
--- NOTE | 2019-10-31 13:53 | Hospitalist Progress Note ---
Date of Service October 31, 2019 Assessment & Plan (1) Sepsis: (2) Left lower lobe pneumonia: -as per admission notes "This is a 64-year-old male with PMH of cervical and lumbar disc disease, tobacco use disorder, CKD III, history of alcohol use disorder who has been sober for 3 weeks who presents to ED with altered mental status, nausea and back pain who was found to have sepsis secondary to possible aspiration pneumonia, complicated UTI and rectal stool ball; HR 113, WBC 21.99k, lactic acid 2.7, procal of 4.7. In setting of small ground glass densities within left lower lobe with concern of aspiration of vomit this morning; Also with evidence of complicated UTI and concern for possible bladder outlet obstruction secondary to enlarged prostate -initially received Zosyn and Vancomycin in the ED -lactic acidosis normalized with antibiotics and IV fluids -the Vancomycin was no longer given by admitting hospitalist team because MRSA screen negative -follow up CXR on 10/29/2019 shows resolution of admission infiltrates while patient had been on IV Zosyn -switched to IV ceftriaxone and oral Doxycycline BID starting on 10/30/2019 -Will transition to Augmentin complete a total of 7 days course to cover the lung and the UTI (3) Complicated UTI (urinary tract infection): -Grossly abnormal UA. Receiving zosyn for empiric coverage of possible aspiration PNA -patient can urinate -admission urine culture with pinpoint growth, which then speciated as Klebisella pneumonia. this is notable because patient had signs of pneumonia on admission but admission blood cultures are negative. blood cultures are repeated are 10/30/2019. urine analysis ordered again on 10/30/2019. antibiotics from IV Zosyn switched to IV ceftriaxone and oral Doxycycline BID starting on 10/30/2019 -Blood cx no growth -Will transition to Augmentin complete a total of 7 days course to cover the lung and the UTI (4) Acute metabolic encephalopathy: -In setting of potential infection, polypharmacy, and pain -admission CT head negative -patient at mental baseline currently (5) Abnormal CT of the abdomen: -CT abd/pelvis with mildly distended gallbladder. No gallbladder wall thickening -No biliary ductal dilatation. Ultrasound of the RUQ. Mild gallbladder distention. Sludge and suspected tiny stones within the gallbladder. Trace pericholecystic fluid. No sonographic Francois sign. No wall thickening. These findings do not strongly suggest acute cholecystitis (6) Lower back pain: -Longstanding chronic back pain, has been evaluated for surgery by Dr. Mota in the past and has been receiving epidural steroid injections by Dr. Kim for the past few months (patient was seen by Dr. Kim on October 14 for epidural steroid injection.) admitting team attributes some AMS on ED evaluation due to taking more Flexeril and oxycodone than prescribed, Also has been taking Valium, baclofen and gabapentin in the past few days -admission Lumbar spine CT without contrast shows no change compared to prior study. No acute fractures within the lumbar spine. [id number] degenerative changes within the lower lumbar spine are again noted -because of history of epidurals, admitting doctor suggested MRI Lumbar spine to rule out potential abscess. Patient agrees to undertake this imaging scan -back pain improving and no acute interventions as per inpatient orthopedics, PT/OT consult were requested by case management services -patient advised on minimizing future use of pain medications to prevent recurrent drug-induced constipation, continue scheduled gabapentin, continue prn Flexeril, resume home medication of baclofen qhs- -Pain improves (7) Constipation: Constipation (likely drug induced from opioids) -admission CT abdomen with Moderate to large amount well-formed stool seen throughout the colon. This includes a 6.7 cm rectal stool ball -after aggressive bowel regimen since admission, patient able to make multiple bowel movements on 10/29/2019, patient also had artifacts on EKG on 10/30/2019 because he was writhing in pain while EKG was done to rule out pain from cardiac causes - he does not have cardiac ischemia based on negative troponin and accurate re-assessment with EKG when he was not in pain -minimize narcotic pain medications as discussed above - Continue laxative and stool softener (8) History of alcohol use: History of drinking 6-10 beers daily for years, quit 3 weeks ago. Serum etoh level <3 -Given banana bag in ED; folic acid, thiamine and Multivitamins -no evidence of alcohol withdrawal to date (9) Acute kidney injury superimposed on CKD: acute kidney injury on CKD stage III -admission Creatinine elevated at 1.9 compared (baseline ~1.3) -after IV fluids, creatinine is downtrending. creatinine is 1.48 on 10/28/2019, will hold off continuous IV fluids for now -creatinine 1.43 on 10/29/2019 and around 1.52 on 10/30/2019, additional IV fluids ordered, monitor the labs , minimize NSAIDs -Creatinine normalizes Hypertension BP stable Continue on amlodipine, started on this admission Continue monitor BP (10) Malnutrition: Moderate protein-calorie malnutrition -BMI of 17.4 and recent weight loss in setting of history of heavy alcohol use -Dietitian consult placed; Review of distribution accounting clerk consult notes pt with 6.8% wt loss in less than one month. Per distribution accounting clerk consult, the patient meets criteria for moderate malnutrition evidence by moderate degree of inadequate food and fluid intake and severe wt loss. -patient encouraged to take the BOOST supplements (11) Tobacco abuse: -Smokes 1 ppd. -Nicotine patch provided DVT Ppx: SQ heparin Code status: FULL Disposition Discharge home today Admission and Anticipated Discharge Date Admission Date: October 27, 2019 Subjective Pt was seen and examined Lying in bed with no distress Pt said that he feels much better He said that his pain is controlled he would like to go home today Denies any chest pain, palpitation, dizziness and SOB Physical Exam Physical Exam: General- No acute distress Head- atraumatic Eyes- PERRL, EOMI, ENT- oropharynx clear Neck- supple, no JVD Lungs- clear to auscultation Heart- regular rhythm; no murmur Abdomen- normal bowel sounds, soft, nontender Extremities- no calf tenderness Neuro- alert, oriented x 3; PERRL, EOMI; no facial palsy; no dysarthria Skin- warm & dry Results & Data Results & Data ([facility]) Vital Signs (Past 12 Hours) Vital Signs Temp Pulse Pulse Resp BP Pulse Ox 10/31/19 11:10 36.4 C L 104 H 18 133/71 98 10/31/19 08:00 93 H 10/31/19 07:14 36.6 C 90 18 149/78 H 100 10/31/19 03:11 36.3 C L 92 H 18 176/84 H 99
[2019-10-31] MEDS ORDERED: AMOXICILLIN/CLAVULANATE 875 MG TAB PO SCH (21:00)
--- NOTE | 2019-11-01 08:55 | Discharge Summary ---
Date of Service October 31, 2019 Admission HPI Per Admitting Provider This is a 64-year-old male with PMH of cervical and lumbar disc disease, tobacco use disorder, CKD III, history of alcohol use disorder who has been sober for 3 weeks who presents to ED with altered mental status, nausea and back pain. Patient has been experiencing chronic back pain for years and was evaluated by Dr. Mota for possible surgery a year ago but decided to try epidural spinal injections with pain management first, which she has been doing over the past year. Patient saw Dr. Kim on 10/14 for injection but pain has increased significantly since then, with muscle spasms every few hours versus once a day. Has been seen in ER for back pain as well. states that patient has been taking Flexeril and oxycodone more frequently than they are prescribed for the past few days as well as valium yesterday. Reportedly slept from [id number] last night into this morning and looked grayish in the bathroom this morning. Had vomiting and diarrhea and seemed confused and lethargic. is worried kaela ent overdosed on medication, so brought him to ED for further evaluation. Throughout time in ED and upon evaluation by hospitalist service, patient developed abdominal and back pain. Also complaining of skin hurting to touch. Of note, patient has history of drinking 6-10 beers daily and stopped abruptly on his own approximately 3 weeks ago. Has issues with constipation in setting of narcotic use and has not gone for the past few days. Uses a stool softener and laxative. Poor appetite and weight loss over the past few weeks. Denies any fever or chills. No lightheadedness, visual changes, chest pain, shortness of breath, dysuria or diarrhea. thinks patient may have aspirated when vomiting this morning. Admission Exam Per Admitting Provider Patient is currently lying in bed, uncomfortable due to pain. He points to his lower abdomen and lower back for pain. He is alert and oriented answering questions appropriately. He is able to move his lower and upper extremities. Denies any urinary or stool incontinence. Abdomen is non-distended, thin, soft, positive bowel sounds, tender to palpation in lower quadrants. Inspection of back is unremarkable, there is no erythema or swelling noted. Patient overall is very thin. There is however tenderness to palpation over lumbar spine. Skin is warm, dry, well perfused. Has also regular, lung sounds are clear to auscultation, no wheezing rhonchi or crackles noted. Patient also denies any cough or sputum production recently. Principal Diagnosis Sepsis Left lower lobe pneumonia Constipation (likely drug induced from opioids) Lower back pain UTI (urinary tract infection) Discharge Exam General- No acute distress Head- atraumatic Eyes- PERRL, EOMI, ENT- oropharynx clear Neck- supple, no JVD Lungs- clear to auscultation Heart- regular rhythm; no murmur Abdomen- normal bowel sounds, soft, nontender Extremities- no calf tenderness Neuro- alert, oriented x 3; PERRL, EOMI; no facial palsy; no dysarthria Skin- warm & dry Discharge Data Allergies Allergy/AdvReac Type Severity Reaction Status Date / Time No Known Allergies Allergy Verified 10/27/19 13:15 Consultations 10/27/19 14:17 ED Decision to Admit Stat 10/29/19 07:04 Consult Orthopedic Surgery Routine Ordered Studies 10/27/19 11:53 CT abd pelvis wo con Stat CT head/brain wo con Stat 10/27/19 16:35 CT lumbar spine wo con Urgent 10/28/19 US liver Routine 10/28/19 10:23 MR lumbar spine wo/w con Routine XR chest 2V PA/lateral HISTORY: Weakness. follow lung infiltrates COMPARISON: Chest 10/27/2019. FINDINGS: The lungs are hyperexpanded with mild apical predominant emphysematous changes. No new focal lung consolidations to suggest pneumonia. No interpolar edema. No pleural effusions. No pneumothorax. Old, healed left-sided rib fractures. IMPRESSION: No acute process within the chest. Emphysema. ACT 112: Negative or not required by law. Electronically signed by: Jose Rafael Noe M.D. 10/29/2019 9:22 AM Dictated: 10/29/19912 Transcribed: 10/29/19912 MRI OF THE LUMBAR SPINE WITH AND WITHOUT CONTRAST CLINICAL HISTORY: Back pain. Recent fall. Spinal injections. Evaluate for abscess. COMPARISON STUDY: MRI of the cervical spine April 24, 2018. CT of the cervical spine October 27, 2019. TECHNIQUE: Utilizing a 1.5 Veena magnet and dedicated coil, multiplanar, multiecho imaging of the lumbar spine was performed before and after uneventful IV administration of 5.5 mL of Gadavist. FINDINGS: For purposes of numbering on this exam, the L5-S1 disc space is assigned to axial image 2629. Moderate loss of height of the anterior aspect of the superior endplate of L2 is unchanged since MRI of April 26, 2018. There is no acute fracture. There is no suspicious marrow replacement. A 1 cm enhancing T2 hyperintense lesion within the L5 vertebral body probably reflects an atypical hemangioma. This is unchanged since MRI April 24, 2018. No intracanalicular mass or fluid collection is present. Paravertebral soft tissues are unremarkable. L1-2: There is mild disc space narrowing. There is mild facet arthrosis and ligamentous hypertrophy. The central canal and neural foramen are patent. L2-3: The central canal and neural foramen are patent. L3-4: There is disc space narrowing with ligamentous hypertrophy and facet arthrosis. There is mild during of the central canal, lateral recesses and neural foramen. L4-5: There is disc space narrowing with disc bulge, ligamentous hypertrophy and facet arthrosis. There is slight narrowing of the central canal and lateral recesses with moderate right and mild left neural foraminal stenosis. L5-S1: There is disc space narrowing with disc bulge and facet arthrosis. There is mild during of the lateral recesses and moderate narrowing of both neural foramen. IMPRESSION: 1. No acute process within the lumbar spine by MRI. No abscess. No evidence for discitis/osteomyelitis. 2. No significant change in moderate multilevel degenerative disc disease and facet arthrosis within lumbar spine since MRI of April 24, 2018. Mild multilevel central canal stenosis and moderate multilevel neural foraminal stenosis. ACT 112: Negative or not required by law. Electronically signed by: Brody Gay M.D. 10/28/2019 1:35 PM Dictated: 10/28/19 1328 Transcribed: 10/28/19 1328 US liver CLINICAL HISTORY: enlarged GB on CTAP COMPARISON STUDY: CT of the abdomen and pelvis October 27, 2019. FINDINGS: Liver is sonographically normal. There is no biliary ductal dilatation. The common bile duct measures 5 mm in caliber. The gallbladder is mildly distended. There is sludge and probable tiny stones within the gallbladder. No sonographic Francois sign was reported. Gallbladder wall thickness is within normal limits. There is trace pericholecystic fluid. The pancreas is within normal limits by sonography although the tail is slightly obscured. There is no right hydronephrosis. Note is made of a 1.7 cm cyst within the lower pole of the right kidney. IMPRESSION: 1. Mild gallbladder distention. Sludge and suspected tiny stones within the gallbladder. Trace pericholecystic fluid. No sonographic Francois sign. No wall thickening. These findings do not strongly suggest acute cholecystitis although a hepatobiliary scan could be obtained if indicated. 2. No biliary ductal dilatation. ACT 112: Negative or not required by law. Electronically signed by: Brody Gay M.D. 10/28/2019 8:35 AM Dictated: 10/28/19832 Transcribed: 10/28/[address] DOSE: HISTORY: lumbar spine pain TECHNIQUE: Multiaxial CT images of the lumbar spine were performed and reformatted in the sagittal and coronal plane without the use of contrast. A dose lowering technique was utilized adhering to the principles of ALARA. COMPARISON: Lumbar spine radiograph 10/13/2019. FINDINGS: Mild to moderate super endplate compression deformity at L2, unchanged. No acute fracture or subluxation within the lumbar spine. The visualized sacrum is intact. Moderate degenerative disc disease at L4-L5 and L5- S1. There is mild degenerative disease at L3-L4. There is also unchanged. Moderate facet degenerative changes within the lower lumbar spine. IMPRESSION: 1. No change compared to prior study. No acute fractures within the lumbar spine. 2. Old superior endplate compression deformity at L2. 3. [id number] degenerative changes within the lower lumbar spine are again noted. ACT 112: Negative or not required by law. Electronically signed by: Jose Rafael Noe M.D. 10/27/2019 5:42 PM Dictated: 10/27/19 1739 Transcribed: 10/27/191738 HEAD CT NONCONTRAST CT DOSE: HISTORY: Closed head injury. TECHNIQUE: Multiaxial CT images of the head were performed without the use of intravenous contrast. Automated exposure control was utilized for this study. A dose lowering technique was utilized adhering to the principles of ALARA. Comparison: None. Findings: The paranasal sinuses and mastoid air cells are clear. The calvarium a nd skull base are intact. There is no mass, hematoma, midline shift, acute infarct. White matter hypodensity is nonspecific but suggestive of microvascular ischemic change. The ventricles and sulci demonstrate mild age-related involutional changes. Impression: No acute intracranial abnormality. Atrophy and microvascular ischemic changes. ACT 112: Negative or not required by law. Electronically signed by: Jose Rafael Noe M.D. 10/27/2019 1:00 PM Dictated: 10/27/19 1253 Transcribed: 10/27/[address] WITHOUT CONTRAST CT DOSE: 1762.25 mGy.cm HISTORY: Generalized abdominal pain. Altered mental status. TECHNIQUE: Multiaxial CT images of the abdomen and pelvis were performed without contrast. A dose lowering technique was utilized adhering to the principles of ALARA. COMPARISON STUDY: None. FINDINGS: Small focus of faint groundglass densities within the left lower lobe. The right lung base is clear. No pneumoperitoneum. No pneumatosis. No suspicious lytic are blastic osseous lesions. Mildly distended gallbladder. No gallbladder wall thickening. The unenhanced liver, spleen, adrenal glands, and pancreas are unremarkable. No renal stones or hydronephrosis. Mild to moderate left cortical renal scarring. A few hypodense lesions within the kidneys which are incompletely characterized on this noncontrast study. The largest on the right measures 2.2 cm. Statistically these represent cysts. Moderate calcified plaque within the normal caliber thoracic aorta. No retroperitoneal lymphadenopathy. Moderate bladder wall thickening. Enlarged prostate gland. Suboptimal evaluation for bowel pathology due to the lack of intravenous and oral contrast. However, there is no definite bowel wall thickening or obstruction. Moderate to large amount well-formed stool seen throughout the colon. This includes a 6.7 cm rectal stool ball. Normal appendix. IMPRESSION: 1. No definite bowel wall thickening or obstruction. 2. Mildly distended gallbladder. No gallbladder wall thickening. 3. Moderate to large amount of well-formed stool seen throughout the colon and rectum. This includes a 6.7 cm rectal stool ball. 4. Normal appendix. 5. Small focus of faint groundglass densities within the left lower lobe. This likely represents mild inflammatory/infectious change. 6. Moderate bladder wall thickening. This could be due to chronic outlet obstruction from the enlarged prostate gland. Recommend correlation with urinalysis to exclude a cystitis. ACT 112: Negative or not required by law. Electronically signed by: Jose Rafael Noe M.D. 10/27/2019 12:53 PM Dictated: 10/27/19 1243 Transcribed: 10/27/19 1243 XR chest 1V portable HISTORY: weakness COMPARISON: Chest 04/19/2015. FINDINGS: The lungs are clear. Cardiac silhouette is normal in size. No pleural effusions. No pneumothorax. Old, healed left-sided rib fractures. IMPRESSION: No acute process. ACT 112: Negative or not required by law. Electronically signed by: Jose Rafael Noe M.D. 10/27/2019 1:05 PM Dictated: 10/27/19 1304 Transcribed: 10/27/19 1304 Hospital Course (1) Sepsis: (2) Left lower lobe pneumonia: -as per admission notes "This is a 64-year-old male with PMH of cervical and lumbar disc disease, tobacco use disorder, CKD III, history of alcohol use disorder who has been sober for 3 weeks who presents to ED with altered mental status, nausea and back pain who was found to have sepsis secondary to possible aspiration pneumonia, complicated UTI and rectal stool ball; HR 113, WBC 21.99k, lactic acid 2.7, procal of 4.7. In setting of small ground glass densities within left lower lobe with concern of aspiration of vomit this morning; Also with evidence of complicated UTI and concern for possible bladder outlet obstruction secondary to enlarged prostate -initially received Zosyn and Vancomycin in the ED -lactic acidosis normalized with antibiotics and IV fluids -the Vancomycin was no longer given by admitting hospitalist team because MRSA screen negative -follow up CXR on 10/29/2019 shows resolution of admission infiltrates while patient had been on IV Zosyn -switched to IV ceftriaxone and oral Doxycycline BID starting on 10/30/2019 -Will transition to Augmentin complete a total of 7 days course to cover the lung and the UTI (3) Complicated UTI (urinary tract infection): -Grossly abnormal UA. Receiving zosyn for empiric coverage of possible aspiration PNA -patient can urinate -admission urine culture with pinpoint growth, which then speciated as Klebisella pneumonia. this is notable because patient had signs of pneumonia on admission but admission blood cultures are negative. blood cultures are repeated are 10/30/2019. urine analysis ordered again on 10/30/2019. antibiotics from IV Zosyn switched to IV ceftriaxone and oral Doxycycline BID starting on 10/30/2019 -Blood cx no growth -Will transition to Augmentin complete a total of 7 days course to cover the lung and the UTI (4) Acute metabolic encephalopathy: -In setting of potential infection, polypharmacy, and pain -admission CT head negative -patient at mental baseline currently (5) Abnormal CT of the abdomen: -CT abd/pelvis with mildly distended gallbladder. No gallbladder wall thickening -No biliary ductal dilatation. Ultrasound of the RUQ. Mild gallbladder distention. Sludge and suspected tiny stones within the gallbladder. Trace pericholecystic fluid. No sonographic Francois sign. No wall thickening. These findings do not strongly suggest acute cholecystitis (6) Lower back pain: -Longstanding chronic back pain, has been evaluated for surgery by Dr. Mota in the past and has been receiving epidural steroid injections by Dr. Kim for the past few months (patient was seen by Dr. Kim on October 14 for epidural steroid injection.) admitting team attributes some AMS on ED evaluation due to taking more Flexeril and oxycodone than prescribed, Also has been taking Valium, baclofen and gabapentin in the past few days -admission Lumbar spine CT without contrast shows no change compared to prior study. No acute fractures within the lumbar spine. [id number] degenerative changes within the lower lumbar spine are again noted -because of history of epidurals, admitting doctor suggested MRI Lumbar spine to rule out potential abscess. Patient agrees to undertake this imaging scan -back pain improving and no acute interventions as per inpatient orthopedics, PT/OT consult were requested by case management services -patient advised on minimizing future use of pain medications to prevent recurrent drug-induced constipation, continue scheduled gabapentin, continue prn Flexeril, resume home medication of baclofen qhs- -Pain improves (7) Constipation: Constipation (likely drug induced from opioids) -admission CT abdomen with Moderate to large amount well-formed stool seen throughout the colon. This includes a 6.7 cm rectal stool ball -after aggressive bowel regimen since admission, patient able to make multiple bowel movements on 10/29/2019, patient also had artifacts on EKG on 10/30/2019 because he was writhing in pain while EKG was done to rule out pain from cardiac causes - he does not have cardiac ischemia based on negative troponin and accurate re-assessment with EKG when he was not in pain -minimize narcotic pain medications as discussed above - Continue laxative and stool softener (8) History of alcohol use: History of drinking 6-10 beers daily for years, quit 3 weeks ago. Serum etoh level <3 -Given banana bag in ED; folic acid, thiamine and Multivitamins -no evidence of alcohol withdrawal to date (9) Acute kidney injury superimposed on CKD: acute kidney injury on CKD stage III -admission Creatinine elevated at 1.9 compared (baseline ~1.3) -after IV fluids, creatinine is downtrending. creatinine is 1.48 on 10/28/2019, will hold off continuous IV fluids for now -creatinine 1.43 on 10/29/2019 and around 1.52 on 10/30/2019, additional IV fluids ordered, monitor the labs , minimize NSAIDs -Creatinine normalizes Hypertension BP stable Continue on amlodipine, started on this admission Continue monitor BP (10) Malnutrition: Moderate protein-calorie malnutrition -BMI of 17.4 and recent weight loss in setting of history of heavy alcohol use -Dietitian consult placed; Review of [employer] hrms developer consult notes pt with 6.8% wt loss in less than one month. Per [employer] hrms developer consult, the patient meets criteria for moderate malnutrition evidence by moderate degree of inadequate food and fluid intake and severe wt loss. -patient encouraged to take the BOOST supplements (11) Tobacco abuse: -Smokes 1 ppd. -Nicotine patch provided DVT Ppx: SQ heparin Code status: FULL Disposition Discharge home today Total Time Total Time Spent Total Time Spent (In Minutes): 35 minutes Total Time Includes: Examination of the Patient, Discharge Planning, Medication Reconciliation, Communication With Other Providers and Other Discharge Plan Discharge Items Patient Disposition: Home - Self-Care Reason For Visit: SEPSIS 2/2 PNA/PNEUMONITIS,LUMBAR SPINE PAIN Discharge Diagnosis: Sepsis Left lower lobe pneumonia Constipation (likely drug induced from opioids) Lower back pain UTI (urinary tract infection) Activity: Resume your previous activity Non-emergency contact: Primary Care Provider and Specialist Call non-emergency contact if: you have any medication questions Follow-up/Referrals: Marlon Santana DO [Primary Care Provider] - 11/08/19 12:20 pm (Date & Time 11/08/2019 12:20 PM Provider Marlon Santana DO Department [facility] ) Diet: Heart Healthy Addtl Attending Provider Instructions: upcoming appointments Follow up with your Primary care provider Dr. Santana on 11/08/19 @ 12:20 PM 11/28/2019 2:30 PM Provider Kim Angelo MD Department Nephrology, [facility] Follow up with pain management if pain is not control Continue physical and occupational therapy Continue monitor your blood pressure Counseling on smoking cessation Complete the course of the antibiotic Fall precaution Pending Studies at Discharge: No Stand-Alone Forms: My [facility], Smoking Cessation Medications and DC Order Prescriptions: New polyethylene glycol 3350 [Miralax] 17 gram Powder In Packet 17 g PO DAILY PRN (Reason: constipation) 30 Days Qty: 30 RF: 0 thiamine HCl (vitamin B1) [Vitamin B-1] 100 mg Tablet 100 mg PO QAM 30 Days Qty: 30 RF: 0 folic acid 1 mg Tablet 1 mg PO QAM 30 Days Qty: 30 RF: 0 amoxicillin-pot clavulanate [Augmentin] 875-125 mg Tablet 1 tab PO BIDM 2 Days Qty: 4 RF: 0 amlodipine 10 mg tablet 10 mg PO DAILY Qty: 30 RF: 0 Continued diazepam [Valium] 5 mg tablet 5 mg PO BID PRN (Reason: spasms) Qty: 7 RF: 0 gabapentin [Neurontin] 300 mg capsule 300 mg PO TID RF: 0 sulindac 200 mg tablet 200 mg PO BID RF: 0 [facility] Arthritis Pill 600 mg PO UD PRN (Reason: Outbreak) RF: 0 sennosides [Senokot] 8.6 mg tablet 8.6 mg PO HS Qty: 30 RF: 0 docusate sodium [Colace] 100 mg capsule 100 mg PO BID Qty: 60 RF: 0 lidocaine [Lidoderm] 5 % adhesive patch,medicated 1 patch TOP DAILY Qty: 15 RF: 0 Gaviscon 95-358 mg/15 mL Suspension 15 ml PO PCHS RF: 0 oxycodone-acetaminophen 5-325 mg Tablet 1 tab PO Q6H PRN (Reason: Pain) RF: 0 baclofen 10 mg tablet 10 mg PO HS RF: 0 cyclobenzaprine 10 mg tablet 10 mg PO TID PRN (Reason: Shortness Of Breath Or Wheezing) RF: 0 Discontinued meloxicam 15 mg Tablet 15 mg PO DAILY RF: 0 Discharge Orders: Discharge Order (Routine); Ordered 10/31/19 Ordered By: Ilia Trujillo Admission Data Admit Date/Time: 10/27/19 16:40 Attending Provider: Ilia Trujillo Admit Provider: Knab,Ishaan F. Primary Care Provider: Marlon Santana Other Providers: Isahan Raymond ; Daniel Mota ; Himanshu Ledesma Other Interventions: Discharge Summary Assessment (RN) Last Done: 10/31/19 14:40
== END 2019-10-31 15:46 | disposition home or self-care (01) | DRG 871 ==
LOC: ED 11:00 → 2S 16:40 → SUATTDRO 16:40 → 2S 17:28

== ENCOUNTER 2019-11-15 20:46 | Observation (INO) ==
[2019-11-15] MEDS ORDERED: SODIUM CHLORIDE 0.9% 1000ML 2,000 ML IV ONE (21:09)
[2019-11-15] MEDS ORDERED: ONDANSETRON INJ 2 MG/ML 2 ML VIAL IV STA (21:09)
[2019-11-15] MEDS ORDERED: KETOROLAC TROMETHAMINE 15 MG/ML VIAL IV ONE (21:09)
[2019-11-15] MEDS ORDERED: MoRPHine SULFATE 4 MG/ML 1 ML CARP\\VIAL IV STA ×2 (21:09→23:25)
[2019-11-15 21:41] LABS: Basophils # (auto) 0.08 K/uL (0-0.2); Basophils % (auto) 0.5 %; Eosinophils # (auto) 0.44 K/uL (0-0.5); Eosinophils % (auto) 2.6 %; Hematocrit (blood only) 35.1 % (42-52); Immature Granulocytes # (auto) 0.07 K/uL (0.00-0.02); Immature Granulocytes % (auto) 0.4 %; Lymphocytes # (auto) 2.98 K/uL (1.2-3.4); Lymphocytes % (auto) 17.3 %; Mean Corpuscular Hemoglobin 31.9 pg (25-34); Mean Corpuscular Hgb Conc 34.2 g/dL (32-36); Mean Corpuscular Volume 93.4 fL (80-100); Monocytes # (auto) 1.29 K/uL (0.11-0.59); Monocytes % (auto) 7.5 %; Neutrophils # (auto) 12.35 K/uL (1.4-6.5); Neutrophils % (auto) 71.7 %; Platelet Count 564 K/uL (130-400); RDW Coefficient of Variation 13.4 % (11.5-14.5); RDW Standard Deviation 45.8 fL (36.4-46.3); Red Blood Count 3.76 M/uL (4.7-6.1); White Blood Count 17.21 K/uL (4.8-10.8)
[2019-11-15 22:07] LABS: Alanine Aminotransferase 21 U/L (12-78); Albumin Level 3.4 gm/dl (3.4-5.0); Aspartate Aminotransferase 18 U/L (15-37); BUN Creatinine Ratio 15.8 (10-20); Blood Urea Nitrogen 21 mg/dl (7-18); Calcium 10.1 mg/dl (8.5-10.1); Carbon Dioxide 26 mmol/L (21-32); Chloride 99 mmol/L (98-107); Est GFR (African American) 63.4; Est GFR (Non-African American) 54.7; Glucose 105 mg/dl (70-99); Lipase 277 U/L (73-393); Potassium 4.1 mmol/L (3.5-5.1); Sodium 134 mmol/L (136-145)
[2019-11-15 22:10] LABS: Albumin Globulin Ratio 0.8 (0.9-2); Alkaline Phosphatase 82 U/L (45-117); Bilirubin,Total 0.3 mg/dl (0.2-1); Globulin 4.1 gm/dl (2.5-4.0); Total Protein 7.5 gm/dl (6.4-8.2)
[2019-11-15] MEDS ORDERED: IOVERSOL 100ml IV ONE (22:15)
--- NOTE | 2019-11-15 22:27 | Emergency Department Note ---
Impression & Plan Abdominal pain, Complicated UTI (urinary tract infection), Abnormal CT of the abdomen, Back pain ED Provider Note NAME: GEORGIE NOBLE AGE: 64 SEX: M : 1955 ARRIVES VIA: Walk-In INFORMANT: Patient, ED PROVIDER(S): Lee Carty DO CHIEF COMPLAINT: Severe right flank and back pain. HPI: Patient is a 64-year-old male who has presented to the ER for severe right back spasms which has been going on for the past several months. He notes it is now rotating into his right mid abdomen/RUQ. He does have some nausea with it. No vomiting. Denies any dysuria urgency or frequency. notes that the spasms have been coming and going on for several weeks. They generally only last about an hour but this is lasted longer. Pain is worse with twisting turning and bending. Does improve with certain positions. Denies any tingling or numbness in the legs. No numbness in the groin. No other exacerbating or remitting factors. ROS: See above HPI for pertinent positives & negatives. A total of 10 systems reviewed and were otherwise negative. PAST MEDICAL HISTORY:See Below PAST SURGICAL HISTORY:See Below FAMILY HISTORY:See Below SOCIAL HISTORY:See Below HOME MEDICATIONS:See Below ALLERGIES:See Below VITALS:See Below PHYSICAL EXAMINATION: GENERAL: Sitting up in bed, alert, chronically ill-appearing, malnourished, moderate distress EYE EXAM: normal conjunctiva. OROPHARYNX: no exudate, no erythema, lips, buccal mucosa, and tongue normal and mucous membranes are moist NECK: supple, no nuchal rigidity, no adenopathy, non-tender LUNGS: Clear to auscultation. Normal chest wall mechanics HEART: no murmurs, S1 normal and S2 normal ABDOMEN: abdomen soft, non-tender, normo-active bowel sounds, no masses, no rebound or guarding. BACK: Back is symmetrical on inspection and there is no deformity, no midline tenderness, acute reproducible tenderness in the upper lumbar paraspinal region on the right tracking down to the SI joint SKIN: no rashes and no bruising UPPER EXTREMITIES: upper extremities are grossly normal. LOWER EXTREMITIES: No pitting edema. Flexion and extension of the hips, knees, ankles, and EHL 5/5 bilaterally. Gross sensation is intact. DPs are 2/4 bilateral. NEURO EXAM: Normal sensorium, cranial nerves II-XII grossly intact, normal speech, no weakness of arms, no weakness of legs. MEDICAL DECISION MAKING: Patient is a 64-year-old male who presents the ER for severe right back pain and right upper quadrant abdominal pain. Vitals show that he is fairly hypertensive. IV was established blood work was obtained. Labs show a leukocytosis of 17,000. Mild anemia 12. BMP with mild hyponatremia. LFTs bilirubin and magnesium was unremarkable. Lipase was normal. UA does suggest a clear UTI with nitrates, leukocytes, white cells and +3 bacteria. He is tender in the right upper quadrant. Uncertain if this is pyelonephritis versus complicated UTI versus cholecystitis in combination with pyelonephritis as the CT does show gallbladder wall thickening and small amount of free fluid. The lumbar spine was unremarkable. Throughout his stay he was given 2 doses of IV morphine, IV fluids and IV Zofran along with IV Toradol and had improvement of his symptoms. Triage Nursing notes reviewed. Prior medical records reviewed Vital Signs: reviewed and remarkable for intensive Differential diagnosis: Differential diagnoses includes but is not limited to gastritis, peptic ulcer disease, GERD, gallbladder disease, pancreatitis, small bowel obstruction, acute coronary syndrome, pericarditis, ischemic bowel, irritable bowel disease, irritable bowel syndrome, appendicitis, diverticulitis, malignancy, hernia, urinary tract infection, torsion, perforation, trauma, infectious. ER treatment provided: See below Diagnostics interpreted by me: ECG: none Cardiac Monitoring: An order was placed for continuous cardiac monitoring. The monitor shows a rate of 84 with sinus rhythm. Laboratory studies: As stated above and show below. Imaging studies: CT ABDOMEN & PELVIS With Contrast: Compared to 10/27/19. Prominent wall enhancement of the gallbladder and common bile duct. Suggestion of stranding/fluid adjacent to the distal stomach/proximal duodenum. Correlate clinically regarding inflammatory/infectious process. Fluid in the small bowel with areas of mild bowel wall thickening or underdistention. Enterocolitis is not excluded in the appropriate clinical setting. Mild bladder wall thickening. Prominence of the bilateral renal collecting systems without visualized ureteral stone. Query mild periportal edema. Normal caliber appendix. Additional incidental findings similar to prior study. Consultation(s): Discussed with Ambrose Sears who both evaluated the patient at bedside Discussed with Dr. Lei Yung for admission ED COURSE: Procedures: none Critical Care: None Past Med/Surg History Medical History Chronic low back pain COPD (chronic obstructive pulmonary disease) Degenerative joint disease (DJD) of lumbar spine Lumbar degenerative disc disease Neuropathy Pneumothorax Rib fracture Tobacco abuse Surgical History History of cataract surgery S/P chest tube placement Family History Other Hypertension Social History Smoking Status: Never smoker packs per day: 1; Cigarettes Per Day: 20; Second Hand Exposure: No; Hx Alcohol Use: Yes Alcohol type: beer Alcohol Intake Frequency Comment: used to drink 6-10 beers daily but quit 3 weeks ago Hx Substance Use: Yes Last Used Substance: Hours (ago) Last Used Substance Other:: 24 - 12 hours ago Preferred Language: Nepali Communication Ability: Effective Visual Impairment: No Limitations Hearing Ability: Normal Group Exercise Instructor Required: No Beliefs That Will Affect Care: None marital status: Current Living Situation: Spouse Feels Safe at Home: Yes Allergies Allergies Allergy/AdvReac Type Severity Reaction Status Date / Time No Known Allergies Allergy Verified 11/15/19 21:31 Home Meds Home Medications Medication Instructions Recorded Confirmed gabapentin [Neurontin] 300 mg PO TID 07/28/19 11/15/19 baclofen 10 mg PO DIRECTED 10/27/19 11/15/19 acetaminophen [Tylenol Arthritis] 650 - 1,300 mg PO DIRECTED PRN 11/15/19 11/15/19 Previous Rx's Medication Instructions Recorded docusate sodium [Colace] 100 mg PO BID #60 cap 08/03/19 sennosides [Senokot] 8.6 mg PO HS #30 tab 08/03/19 amlodipine 10 mg PO DAILY #30 tab 10/31/19 folic acid 1 mg PO QAM 30 Days #30 tab 10/31/19 thiamine HCl (vitamin B1) [Vitamin 100 mg PO QAM 30 Days #30 tab 10/31/19 B-1] Results & Data (ED) Vital Signs Vital Signs - 24 hr 11/15/19 20:48 11/15/19 21:09 11/15/19 23:57 Temperature 36.8 C Temperature Source Oral Pulse Rate 114 H Pulse Rate [Right] 86 Pulse Rhythm [Right] Regular Pulse Strength [Right] Normal Respiratory Rate 20 18 Respiratory Effort / Characteristics Non-Labored Spontaneous Respiratory Depth Normal Respiratory Pattern Regular Blood Pressure 165/74 H Blood Pressure [Right Arm] 191/84 H Blood Pressure Mean 104 Blood Pressure Mean [Right Arm] 119 Blood Pressure Position Sitting Blood Pressure Position [Right Arm] Lying Pulse Oximetry 98 99 Oxygen Delivery Method Room Air Room Air Room Air Sepsis Recent Fever Within 48 Hours No Sepsis New/Unexplained Change in Mental Status No Sepsis Action Taken by Nursing No Action Required Laboratory Data Result diagrams: 11/15/19 21:23 11/15/19 21:23 Lab Results 11/15/19 11/15/19 11/15/19 Range/Units 21:23 21:23 22:14 WBC 17.21 H (4.8-10.8) K/uL RBC 3.76 L (4.7-6.1) M/uL Hgb 12.0 L (14.0-18.0) g/dL Hct 35.1 L (42-52) % MCV 93.4 (80-100) fL MCH 31.9 (25-34) pg MCHC 34.2 (32-36) g/dL RDW Std Deviation 45.8 (36.4-46.3) fL RDW Coeff of [place] 13.4 (11.5-14.5) % Plt Count 564 H (130-400) K/uL MPV 9.0 (7.4-10.4) fL Immature Gran % (Auto) 0.4 % Neut % (Auto) 71.7 % Lymph % (Auto) 17.3 % [place] % (Auto) 7.5 % Eos % (Auto) 2.6 % Baso % (Auto) 0.5 % Neut # (Auto) 12.35 H (1.4-6.5) K/uL Lymph # (Auto) 2.98 (1.2-3.4) K/uL [place] # (Auto) 1.29 H (0.11-0.59) K/uL Eos # (Auto) 0.44 (0-0.5) K/uL Baso # (Auto) 0.08 (0-0.2) K/uL Immature Gran # (Auto) 0.07 H (0.00-0.02) K/uL Sodium 134 L (136-145) mmol/L Potassium 4.1 (3.5-5.1) mmol/L Chloride 99 (98-107) mmol/L Carbon Dioxide 26 (21-32) mmol/L Anion Gap 9.0 (3-11) BUN 21 H (7-18) mg/dl Creatinine 1.35 (0.6-1.4) mg/dl Est Cr Clr Drug Dosing Not Reportable Est GFR ( Amer) 63.4 Est GFR (Non-Af Amer) 54.7 BUN/Creatinine Ratio 15.8 (10-20) Glucose 105 H (70-99) mg/dl Calcium 10.1 (8.5-10.1) mg/dl Magnesium 2.0 (1.8-2.4) mg/dl Total Bilirubin 0.3 (0.2-1) mg/dl AST 18 (15-37) U/L ALT 21 (12-78) U/L Alkaline Phosphatase 82 (45-117) U/L Total Protein 7.5 (6.4-8.2) gm/dl Albumin 3.4 (3.4-5.0) gm/dl Globulin 4.1 H (2.5-4.0) gm/dl Albumin/Globulin Ratio 0.8 L (0.9-2) Lipase 277 (73-393) U/L Urine Color Yellow Urine Appearance Clear (Clear) Urine pH 7.0 (4.5-7.5) Ur Specific [place] 1.009 (1.000-1.030) Urine Protein 1+ H (Negative) Urine Glucose (UA) Negative (Negative) Urine Ketones Negative (Negative) Urine Blood 2+ H (Negative) Urine Nitrite Positive A (Negative) Urine Bilirubin Negative (Negative) Urine Urobilinogen Negative (Negative) Ur Leukocyte Esterase 1+ H (Negative) Urine WBC (Auto) 5-10 H (0-5) /hpf Urine RBC (Auto) 5-10 H (0-4) /hpf U Hyaline Cast (Auto) 0 (0-5) /lpf U Epithel Cells (Auto) 5-10 H (0-5) /lpf Urine Bacteria (Auto) 3+ H (Negative) Administered Medications Discontinued Medications Amlodipine Besylate (Amlodipine Besylate 5 Mg Tab) 10 mg PO NOW ONE Stop: 11/16/19 00:06 Last Admin: 11/16/19 00:15 Dose: 10 mg Documented by: [id number] Sodium Chloride (Nss 1000ml) 2,000 mls @ 999 mls/hr IV .Q2H1M ONE Stop: 11/15/19 23:09 Last Infusion: 11/16/19 00:25 Dose: 0 mls/hr Documented by: [id number] Admin: 11/15/19 21:48 Dose: 999 mls/hr Documented by: [id number] Piperacillin Sod/Tazobactam Sod (Zosyn) 4.5 gm in 120 mls @ 240 mls/hr IV NOW ONE Stop: 11/15/19 23:54 Last Infusion: 11/16/19 00:26 Dose: 0 mls/hr Documented by: [id number] Admin: 11/15/19 23:52 Dose: 240 mls/hr Documented by: [id number] Ioversol (Ioversol 100ml) 93 ml IV ONCE ONE Stop: 11/15/19 22:16 Last Admin: 11/15/19 22:16 Dose: 1 ml Documented by: [id number] Ketorolac Tromethamine (Ketorolac Tromethamine 15 Mg/Ml Vial) 15 mg IV NOW ONE Stop: 11/15/19 21:10 Last Admin: 11/15/19 21:49 Dose: 15 mg Documented by: [id number] Morphine Sulfate (Morphine Sulfate 4 Mg/Ml 1 Ml Carp\Vial) 4 mg IV NOW STA Stop: 11/15/19 21:10 Last Admin: 11/15/19 21:48 Dose: 4 mg Documented by: [id number] Morphine Sulfate (Morphine Sulfate 4 Mg/Ml 1 Ml Carp\Vial) 4 mg IV NOW STA Stop: 11/15/19 23:26 Last Admin: 11/15/19 23:52 Dose: 4 mg Documented by: [id number] Ondansetron HCl (Ondansetron Inj 2 Mg/Ml 2 Ml Vial) 4 mg IV NOW STA Stop: 11/15/19 21:10 Last Admin: 11/15/19 21:48 Dose: 4 mg Documented by: [id number] Discharge Plan Visit Data Chief Complaint: Back Injury/Pain Stated Complaint: BACK PAIN ED Provider: Lee Carty Discharge Problem: Abdominal pain, Complicated UTI (urinary tract infection), Abnormal CT of the abdomen, Back pain Forms Stand Alone Forms: [facility] Prescriptions Prescriptions: No Action acetaminophen [Tylenol Arthritis] 650 mg Tablet Extended Release 650 - 1,300 mg PO DIRECTED PRN (Reason: Pain) RF: 0 gabapentin [Neurontin] 300 mg capsule 300 mg PO TID RF: 0 sennosides [Senokot] 8.6 mg tablet 8.6 mg PO HS Qty: 30 RF: 0 docusate sodium [Colace] 100 mg capsule 100 mg PO BID Qty: 60 RF: 0 baclofen 10 mg tablet 10 mg PO DIRECTED RF: 0 thiamine HCl (vitamin B1) [Vitamin B-1] 100 mg Tablet 100 mg PO QAM 30 Days Qty: 30 RF: 0 folic acid 1 mg Tablet 1 mg PO QAM 30 Days Qty: 30 RF: 0 amlodipine 10 mg tablet 10 mg PO DAILY Qty: 30 RF: 0 Discharge Problem: Abdominal pain Qualifiers: Abdominal location: unspecified location Qualified Code(s): R10.9 - Unspecified abdominal pain Back pain Qualifiers: Back pain location: low back pain Chronicity: acute Back pain laterality: right Sciatica presence: unspecified whether sciatica present Qualified Code(s): M54.5 - Low back pain
[2019-11-15 22:41] LABS: Appearance Urine Clear (Clear); Bacteria Urine Automated 3+ (Negative); Bilirubin Urine Negative (Negative); Blood Urine 2+ (Negative); Cast Urine Automated 0 /lpf (0-5); Color Urine Yellow; Glucose Urine UA Negative (Negative); Ketones Urine Negative (Negative); Leukocyte Esterase Urine 1+ (Negative); Nitrite Urine Positive (Negative); Protein Urine 1+ (Negative); Specific Gravity Urine 1.009 (1.000-1.030); Urobilinogen Urine Negative (Negative)
[2019-11-15] MEDS ORDERED: PIPERACILLIN/TAZOBACTAM 4.5 GM/120 ML BAG IV ONE (23:25)
[2019-11-15] MEDS ORDERED: PIPERACILL/TAZOBAC CONSULT ACTIVE PRN (23:25)
[2019-11-16] MEDS ORDERED: AMLODIPINE BESYLATE 5 MG TAB PO ONE (00:05)
--- NOTE | 2019-11-16 00:09 | Surgery Consultation ---
Date of Consultation November 15, 2019 Assessment & Plan (1) Cholecystitis: -pt to be admitted by medical service -recommend proceeding in the following manner: -keep NPO -treat with antibiotics--zosyn has ebony started -provide analgesics and anti-emetics -pt. will be seen this admission by Dr. Sears for consideration of cholecystectomy Dr. Sears-patient symptoms are not typical for gallbladder disease and he does have evidence of UTI on his UA We will obtain a HIDA scan hopefully in the morning and we will also tentatively put him on for laparoscopic cholecystectomy History of Present Illness History of Present Illness 64 year old male presented to [facility] with back pain--he notes this is a chronic problem and has resulted in leg weakness. His leg weakness has not gotten any worse. He came to ED due to worsening back pain he notes is greatest in the right flank area that radiates to the RUQ of his abdomen. He denies cough fevers, shakes, chills, or night sweats. No weight loss. No change in bowel habits. He does note some post-prandial RUQ pain about 20 minutes after eating. No N/V. The pain has improved with meds given in the ED. No radiation of pain to shoulder. Of note, he was recently hospitalized in October 2019 for LLL pneumonia and Klebsiella UTI, treated with zosyn. Blood cultures were (-) for growth. He was noted to have a distended GB on CT scan during this admission. Today in ED CT scan shows concern for thickening/prominence of GB and CBD with fat stranding and also concern for possible enterocolitis. WBC was elevated at 17K. LFTs and lipase were normal. The pt. notes he lives in a 1 story house and can walk on a flat surface without CP or SOB. He does admit he cannot walk very far due to his previously noted chronic back pain and LE weakness. He is a current everyday smoker and has been for at east 40 years, smoking 1.5 PPD at his worst, but currently is smoking less than 1 PPD. he denies ETOH use. At the time of my exam, he noted low back pain and was in no distress. Allergies Allergy/AdvReac Type Severity Reaction Status Date / Time No Known Allergies Allergy Verified 11/15/19 21:31 Home Medications Home Medications Medication Instructions Recorded Confirmed Type gabapentin [Neurontin] 300 mg PO TID 07/28/19 11/15/19 History docusate sodium [Colace] 100 mg PO BID #60 cap 08/03/19 11/15/19 Rx sennosides [Senokot] 8.6 mg PO HS #30 tab 08/03/19 11/15/19 Rx baclofen 10 mg PO DIRECTED 10/27/19 11/15/19 History amlodipine 10 mg PO DAILY #30 tab 10/31/19 11/15/19 Rx folic acid 1 mg PO QAM 30 Days #30 tab 10/31/19 11/15/19 Rx thiamine HCl (vitamin B1) [Vitamin 100 mg PO QAM 30 Days #30 tab 10/31/19 11/15/19 Rx B-1] acetaminophen [Tylenol Arthritis] 650 - 1,300 mg PO DIRECTED PRN 11/15/19 11/15/19 History Patient History Medical History Chronic low back pain COPD (chronic obstructive pulmonary disease) Degenerative joint disease (DJD) of lumbar spine Lumbar degenerative disc disease Neuropathy Pneumothorax Rib fracture Tobacco abuse Surgical History History of cataract surgery S/P chest tube placement Family History Other Hypertension Social History Smoking Status: Never smoker packs per day: 1; Cigarettes Per Day: 20; Second Hand Exposure: No; Hx Alcohol Use: Yes Alcohol type: beer Alcohol Intake Frequency Comment: used to drink 6-10 beers daily but quit 3 weeks ago Hx Substance Use: Yes Last Used Substance: Hours (ago) Last Used Substance Other:: 24 - 12 hours ago Preferred Language: Surinamese Communication Ability: Effective Visual Impairment: No Limitations Hearing Ability: Normal Vacuum Pan Operator Required: No Beliefs That Will Affect Care: None marital status: Current Living Situation: Spouse Feels Safe at Home: Yes Review of Systems Constitutional: no fever and no chills Eyes: no diplopia Ear, Nose, Mouth, Throat: no ear pain Respiratory: no cough and no dyspnea Cardiovascular: no chest pain Gastrointestinal: + abdominal pain (as noted in HPI ); no nausea and no vomiting Genitourinary: no dysuria and no urinary hesitancy Musculoskeletal: + back pain Integumentary: no rash Neurologic: no localized weakness Physical Exam Constitutional: + thin; no acute distress Eyes: no conjunctival abnormality ENMT: Ears: no hearing impairment poor dentition Respiratory: normal respiratory effort, lungs clear to auscultation Cardiovascular: Rate/Rhythm: regular rate and regular rhythm Gastrointestinal (Abdomen): Inspection/Auscultation: abdomen not distended Percussion/Palpation: + abdomen tender (RUQ with dep palpation; (+) Francois's sign) and abdomen soft; no guarding Musculoskeletal: no calf pain Skin: no rashes, warm and dry Neurologic: moves all extremities Psychiatric: A+Ox3, euthymic affect Results & Data ([facility]) Vital Signs (Past 12 Hours) Vital Signs Temp Pulse Resp BP Pulse Ox 11/15/19 20:48 36.8 C 114 H 20 165/74 H 98 PG Care Time/CCT Total # of Minutes Spent Total Time Spent with Patient: Total time spent is greater than 50% in coordination of care (as documented) at patient's floor/unit and/or counseling patient: Coding Level of Care Code 31938 Inpt Consult Level 5 Diagnoses Cholecystitis K81.9
[2019-11-16] MEDS ORDERED: MoRPHine SULFATE 4 MG/ML 1 ML CARP\\VIAL IV STA (00:39)
--- NOTE | 2019-11-16 00:39 | History & Physical Report ---
Date of Service November 16, 2019 Assessment & Plan (1) Sepsis: Complicated UTI rule out gallbladder pathology hypertensive urgency secondary to above chronic anemia, hemoglobin at baseline past alcohol abuse ongoing tobacco abuse Medical telemetry given uncontrolled blood pressure Cultures, check lactic acid Zosyn for now Surgery consult Re: Right upper quadrant pain possible cholecystitis (Dr. Sears has already evaluated patient at the ER. He recommends HIDA Scan to rule out cholecystitis.) Analgesia Facilitate amlodipine Add lisinopril if BP still uncontrolled Nicotine patch PRN DVT prophylaxis. SCDs RE possible surgery Lovenox 30 mg subcutaneous once daily if okay with surgery. Full code Text document was generated using [employer] voice recognition software. It may contain grammatical or spelling errors. Kindly contact undersigned for clarification of any documentation item in question. History of Present Illness Chief Complaint: Right-sided flank pain/abdominal pain Primary Care Provider: Marlon Santana DO History obtained from patient, family, and records. Medical history significant for hypertension, osteoarthritis, constipation, chronic anemia (baseline hemoglobin 11-12), past alcohol use, ongoing tobacco abuse. Last confinement 3 weeks ago for sepsis secondary to lower lobe pneumonia and [place] I. Yesterday afternoon patient experienced achy right flank pain going to his right upper abdomen some nausea, no emesis. Good BM. No chest pain, no S OB, no headache, no unusual cough symptoms. No hematuria. No fever no chills. At the ER, patient received Zosyn for sepsis. Medical History as above Surgical History : Chest tube insertion for pneumothorax Family History : Hypertension Personal/Social history : Half pack daily, past alcohol abuse, part-time work at [employer] Allergies Allergy/AdvReac Type Severity Reaction Status Date / Time No Known Allergies Allergy Verified 11/15/19 21:31 Home Medications Home Medications Medication Instructions Recorded Confirmed Type gabapentin [Neurontin] 300 mg PO TID 07/28/19 11/15/19 History docusate sodium [Colace] 100 mg PO BID #60 cap 08/03/19 11/15/19 Rx sennosides [Senokot] 8.6 mg PO HS #30 tab 08/03/19 11/15/19 Rx baclofen 10 mg PO DIRECTED 10/27/19 11/15/19 History amlodipine 10 mg PO DAILY #30 tab 10/31/19 11/15/19 Rx folic acid 1 mg PO QAM 30 Days #30 tab 10/31/19 11/15/19 Rx thiamine HCl (vitamin B1) [Vitamin 100 mg PO QAM 30 Days #30 tab 10/31/19 11/15/19 Rx B-1] acetaminophen [Tylenol Arthritis] 650 - 1,300 mg PO DIRECTED PRN 11/15/19 11/15/19 History Past Med/Surg History Medical History Chronic low back pain COPD (chronic obstructive pulmonary disease) Degenerative joint disease (DJD) of lumbar spine Lumbar degenerative disc disease Neuropathy Pneumothorax Rib fracture Tobacco abuse Surgical History History of cataract surgery S/P chest tube placement Family History Other Hypertension Social History Smoking Status: Never smoker packs per day: 1; Cigarettes Per Day: 20; Second Hand Exposure: No; Hx Alcohol Use: Yes Alcohol type: beer Alcohol Intake Frequency Comment: used to drink 6-10 beers daily but quit 3 weeks ago Hx Substance Use: Yes Last Used Substance: Hours (ago) Last Used Substance Other:: 24 - 12 hours ago Preferred Language: Jamaican Communication Ability: Effective Visual Impairment: No Limitations Hearing Ability: Normal [employer] Required: No Beliefs That Will Affect Care: None marital status: Current Living Situation: Spouse Feels Safe at Home: Yes Review of Systems Review of Systems: As per HPI, all 10 systems reviewed, all other ROS negative Physical Exam Physical Exam: GENERAL: Slightly uncomfortable, no respiratory distress SKIN: Pallor , warm HEENT: Pale palpebral conjunctivae, no ptosis, dry buccal mucosa, partially edentulous NECK : Supple, no tenderness CHEST : Decreased breath sounds, no tenderness HEART : RRR, no obvious murmurs ABDOMEN: Some distention, right upper quadrant tenderness EXTREMITIES : No LE swelling/tenderness, no other conspicuous deformities noted NEUROLOGIC : Coherent, no facial asymmetry, no other gross focality Results & Data Results & Data ([facility]) Vital Signs (Past 12 Hours) Vital Signs Temp Pulse Pulse Resp BP BP Pulse Ox 11/15/19 23:57 86 18 191/84 H 99 11/15/19 20:48 36.8 C 114 H 20 165/74 H 98 Laboratory Results Laboratory Results WBC 17.21 K/uL (4.8-10.8) H 11/15/19 21: RBC 3.76 M/uL (4.7-6.1) L 11/15/19 21:23 Hgb 12.0 g/dL (14.0-18.0) L 11/15/19 21: Hct 35.1 % (42-52) L 11/15/19 21: MCV 93.4 fL (80-100) 11/15/19 21: MCH 31.9 pg (25-34) 11/15/19: MCHC 34.2 g/dL (32-36) 11/15/19 21: RDW Std Deviation 45.8 fL (36.4-46.3) 11/15/19: RDW Coeff of [place] 13.4 % (11.5-14.5) 11/15/19: Plt Count 564 K/uL (130-400) H 11/15/19 21: MPV 9.0 fL (7.4-10.4) 11/15/19 21: Immature Gran % (Auto) 0.4 % 11/15/19 21: Neut % (Auto) 71.7 % 11/15/19: Lymph % (Auto) 17.3 % 11/15/19 21: [place] % (Auto) 7.5 % 11/15/19: Eos % (Auto) 2.6 % 11/15/19 21: Baso % (Auto) 0.5 % 11/15/19: Neut # (Auto) 12.35 K/uL (1.4-6.5) H 11/15/19 21: Lymph # (Auto) 2.98 K/uL (1.2-3.4) 11/15/19 21: [place] # (Auto) 1.29 K/uL (0.11-0.59) H 11/15/19 21: Eos # (Auto) 0.44 K/uL (0-0.5) 09/10/20 21:23 Baso # (Auto) 0.08 K/uL (0-0.2) 11/15/19 21:23 Immature Gran # (Auto) 0.07 K/uL (0.00-0.02) H 11/15/19 21:23 Sodium 134 mmol/L (136-145) L 11/15/19 21:23 Potassium 4.1 mmol/L (3.5-5.1) 11/15/19 21:23 Chloride 99 mmol/L (98-107) 11/15/19 21:23 Carbon Dioxide 26 mmol/L (21-32) 11/15/19 21:23 Anion Gap 9.0 (3-11) 11/15/19 21:23 BUN 21 mg/dl (7-18) H 11/15/19 21: Creatinine 1.35 mg/dl (0.6-1.4) 11/15/19 21: Est Cr Clr Drug Dosing Not Reportable 11/15/19 21:23 Est GFR ( Amer) 63.4 11/15/19 21: Est GFR (Non-Af Amer) 54.7 11/15/19 21:23 BUN/Creatinine Ratio 15.8 (10-20) 11/15/19 21: Glucose 105 mg/dl (70-99) H 11/15/19 21:23 Calcium 10.1 mg/dl (8.5-10.1) 11/15/19 21: Magnesium 2.0 mg/dl (1.8-2.4) 11/15/19: Total Bilirubin 0.3 mg/dl (0.2-1) 11/15/19 21:23 AST 18 U/L (15-37) 11/15/19 21:23 ALT 21 U/L (12-78) 11/15/19 21:23 Alkaline Phosphatase 82 U/L (45-117) 11/15/19 21:23 Total Protein 7.5 gm/dl (6.4-8.2) 11/15/19 21:23 Albumin 3.4 gm/dl (3.4-5.0) 11/15/19 21: Globulin 4.1 gm/dl (2.5-4.0) H 11/15/19 21:23 Albumin/Globulin Ratio 0.8 (0.9-2) L 11/15/19 21:23 Lipase 277 U/L (73-393) 11/15/19 21:23 Urine Color Yellow 11/15/19 22:14 Urine Appearance Clear (Clear) 11/15/19 22:14 Urine pH 7.0 (4.5-7.5) 11/15/19 22:14 Ur Specific [place] 1.009 (1.000-1.030) 11/15/19 22:14 Urine Protein 1+ (Negative) H 11/15/19 22:14 Urine Glucose (UA) Negative (Negative) 11/15/19 22:14 Urine Ketones Negative (Negative) 11/15/19 22:14 Urine Blood 2+ (Negative) H 11/15/19 22:14 Urine Nitrite Positive (Negative) A 11/15/19 22:14 Urine Bilirubin Negative (Negative) 11/15/19 22:14 Urine Urobilinogen Negative (Negative) 11/15/19 22:14 Ur Leukocyte Esterase 1+ (Negative) H 11/15/19 22:14 Urine WBC (Auto) 5-10 /hpf (0-5) H 11/15/19 22:14 Urine RBC (Auto) 5-10 /hpf (0-4) H 11/15/19 22:14 U Hyaline Cast (Auto) 0 /lpf (0-5) 11/15/19 22:14 U Epithel Cells (Auto) 5-10 /lpf (0-5) H 11/15/19 22:14 Urine Bacteria (Auto) 3+ (Negative) H 11/15/19 22:[address] abdomen pelvis initial read: Prominent wall enhancement of the gallbladder and common bile duct with suggestion of stranding and fluid adjacent to distal stomach/proximal duodenum. Correlate for inflammatory/infectious process. Mild bowel wall thickening or underdistention. Enterocolitis not excluded. Mild bladder wall thickening. Prominence of bilateral renal collecting systems without visualized ureteral stone. Normal appendix. CT lumbar spine initial read no evidence of acute fracture. Chest x-ray as per my interpretation emphysema
[2019-11-16] MEDS ORDERED: LORazepam 0.25 MG/0.5 ML VIAL IV PRN (00:45)
[2019-11-16] MEDS ORDERED: OXYCODONE HCL IR 5 MG TAB (IMMEDIATE RELEASE) PO PRN (00:45)
[2019-11-16] MEDS ORDERED: ACETAMINOPHEN 325 MG TAB PO PRN (00:46)
[2019-11-16] MEDS ORDERED: SODIUM CHLORIDE 0.9% 1000ML 1,000 ML IV ONE (00:46)
[2019-11-16] MEDS: MoRPHine SULFATE 4 MG/ML 1 ML CARP\\VIAL IV PRN ×2 (02:52→16:49)
[2019-11-16] MEDS ORDERED: PIPERACILLIN/TAZOBACTAM 3.375 GM in DEXTROSE 5% 100 ML IV SCH (06:00)
--- NOTE | 2019-11-16 06:55 | Surgery Progress Note ---
Date of Service November 16, 2019 Assessment & Plan (1) Back pain: Patient is essentially having back pain which I do not think is coming from his gallbladder 2 weeks ago his gallbladder is actually more distended likely has chronic changes He does not appear to have evidence of acute cholecystitis HIDA scan is pending Doubt his symptoms are coming from his gallbladder Treatment continues for his UTI Admission and Anticipated Discharge Date Admission Date: November 16, 2019 Subjective Patient slept overnight I awakened him and he is alert He is having some back pain but no abdominal pain or nausea Physical Exam Constitutional: well developed; no acute distress Eyes: + anicteric sclerae Respiratory: normal respiratory effort; no respiratory distress Cardiovascular: Rate/Rhythm: regular rate Gastrointestinal (Abdomen): Inspection/Auscultation: abdomen not distended Percussion/Palpation: abdomen soft Skin: no rashes, warm and dry Neurologic: awake Psychiatric: Orientation: alert Results & Data ([facility]) Vital Signs (Past 12 Hours) Vital Signs Temp Pulse Pulse Resp BP BP Pulse Ox 11/16/19 02:59 74 11/16/19 02:32 37.0 C 94 H 18 141/72 H 99 11/16/19 02:03 72 19 180/80 H 97 11/15/19 23:57 86 18 191/84 H 99 11/15/19 20:48 36.8 C 114 H 20 165/74 H 98 PG Care Time/CCT Total # of Minutes Spent Total Time Spent with Patient: Total time spent is greater than 50% in coordination of care (as documented) at patient's floor/unit and/or counseling patient: Coding Level of Care Code 32148 Subseq Hosp Care Lvl 3 Diagnoses Back pain M54.5 Back pain laterality: right Back pain location: low back pain Chronicity: acute Sciatica presence: unspecified whether sciatica present (1) Back pain Back pain laterality: right Back pain location: low back pain Chronicity: acute Sciatica presence: unspecified whether sciatica present Qualified Code(s): M54.5 - Low back pain
--- NOTE | 2019-11-16 07:25 | CT Scan Report ---
CT lumbar spine wo con HISTORY: 64 years-old Male severe lower back pain acute severe low back pain without reported trauma COMPARISON: CT abdomen and pelvis of same day, CT lumbar spine 10/27/2019 TECHNIQUE: Multiple axial CT images of the lumbar spine were obtained without the use of IV contrast. A dose lowering technique was used consistent with the principals of CASSIDY. FINDINGS: Remote superior endplate compression deformity at L2 with remote superior endplate Schmorl's nodes at T12 and L1. There is severe right-sided disc space narrowing with moderate spondylitic spurring at L 4-L5. Lumbar levoscoliosis. Moderate disc space narrowing with vacuum disc phenomena and spondylitic spurring at L5-S1. Multilevel posterior annular disc bulging. Posterior disc osteophyte complex forma tions are noted at L4-L5 and L5-S1. Moderate to severe multilevel facet arthrosis. No acute fracture or subluxation. The imaged sacrum and iliac bones appear intact. Mild mucous plugging of the left lung base. Mixed plaque of the abdominal aorta and branch vessels. P aravertebral tissues are within normal limits. IMPRESSION: 1. No acute fracture or subluxation. 2. Remote L2 superior endplate compression deformity with multilevel degenerative changes as above. 3. Levoscoliosis. ACT 112: Negative or not required by law. The above report was generated using voice recognition software. It may contain grammatical, syntax o r spelling errors. Electronically signed by: Jordi Baptiste M.D. 11/16/2019 7:23 AM
[2019-11-16] MEDS ORDERED: LIDOCAINE HCL 2% 2 ML VIAL/AMP(20MG/ML) INFIL ONE (07:28)
[2019-11-16] MEDS ORDERED: MIDAZOLAM HCL 1 MG/ML 2ML VIAL ONE (07:28)
[2019-11-16] MEDS ORDERED: ONDANSETRON INJ 2 MG/ML 2 ML VIAL ONE (07:28)
[2019-11-16] MEDS ORDERED: ROCURONIUM BROMIDE 10 MG/ML 5 ML VIAL IV ONE (07:28)
[2019-11-16] MEDS ORDERED: fentaNYL citrate 100 MCG/2 ML VIAL ONE (07:28)
[2019-11-16] MEDS ORDERED: PROPOFOL IV EMULSION 10 MG/ML 20 ML VIAL IV ONE (07:28)
--- NOTE | 2019-11-16 07:30 | XRay Report ---
SINGLE VIEW CHEST CLINICAL HISTORY: Sepsis. FINDINGS: 2 AP, portable, upright chest radiographs are compared to study dated 10/29/2019. The examin ation is degraded by portable technique, apical lordotic positioning, and patient rotation. The cardi omediastinal silhouette is unremarkable noting atherosclerotic calcification of the thoracic aorta. E mphysematous change is suspected. Chronic interstitial thickening is similar to previous. There is mi ld bibasilar scarring/atelectasis. No airspace consolidation or large pleural effusion is identified. No pneumothorax is seen. There are healed bilateral rib fractures. IMPRESSION: No acute cardiopulmonary abnormality. ACT 112: Negative or not required by law. Electronically signed by: Thee Cobb M.D. 11/16/2019 7:29 AM
[2019-11-16 07:48] LABS: Hematocrit (blood only) 31.1 % (42-52); Hemoglobin 10.5 g/dL (14.0-18.0); Mean Corpuscular Hemoglobin 31.7 pg (25-34); Mean Corpuscular Hgb Conc 33.8 g/dL (32-36); Mean Platelet Volume 8.6 fL (7.4-10.4); Platelet Count 474 K/uL (130-400); RDW Coefficient of Variation 13.6 % (11.5-14.5); RDW Standard Deviation 46.9 fL (36.4-46.3); Red Blood Count 3.31 M/uL (4.7-6.1); White Blood Count 13.91 K/uL (4.8-10.8)
--- NOTE | 2019-11-16 08:16 | CT Scan Report ---
CT SCAN OF THE ABDOMEN AND PELVIS WITH IV CONTRAST CLINICAL HISTORY: Right upper quadrant abdominal pain. COMPARISON STUDY: Abdominal CT dated 10/27/2019. TECHNIQUE: Following the IV administration of 93 cc of Optiray 320, CT scan of the abdomen and pelvi s is performed from the lung bases to the proximal femora. Images are reviewed in the axial, sagittal , and coronal planes. IV contrast was administered without complication. A dose lowering technique wa s utilized adhering to the principles of ALARA. FINDINGS: Lung bases: The heart is normal in size and without pericardial effusion. There are bilateral fat-con taining Bochdalek hernias. Emphysematous changes suspected. No airspace consolidation or pleural effu hernandez is identified. Liver: The contrast-enhanced liver is normal in size, contour, and attenuation. There is no intrahepa tic biliary ductal dilatation. The hepatic veins and portal veins are patent. Gallbladder: Unremarkable. Spleen: Normal in size and attenuation. Pancreas: Unremarkable. Adrenal glands: Unremarkable. Kidneys: The contrast enhanced kidneys demonstrate cortical atrophy and are without hydronephrosis. F oci of cortical scarring are noted in both kidneys. The kidneys enhance symmetrically. A 2.2 cm cyst arises from the right lower pole. Additional subcentimeter cortical hypodensities also likely represe nt cysts but are too small for definitive characterization. Abdominal vasculature: The abdominal aorta is normal in course and caliber noting advanced atheroscle rotic calcification. There is approximately 50% luminal narrowing of the distal abdominal aorta secon karis soft plaque. There is high-grade stenosis with near complete occlusion of the left common iliac artery seen on image #181. There is complete focal thrombosis of the right internal iliac artery seen on image #238. Bowel: There is no bowel obstruction. Fecal retention is noted throughout the colon. The proximal duo denum appears mildly thick walled with mucosal hyperemia. Question faint periduodenal inflammation. T he appendix is well-visualized and normal. Peritoneum: There is no intraperitoneal free air or abdominal ascites. Lymphadenopathy: There are shotty retroperitoneal lymph nodes. The largest measures 12 mm in short ax is as seen on #115. Pelvic viscera: The prostate gland is enlarged and heterogeneous noting median lobe hypertrophy. The bladder is distended. The bladder wall is thickened and trabeculated indicating chronic outlet obstru ction. Skeletal structures: The skeletal structures are osteopenic. There is a chronic compression deformity of L2. Mild to moderate lumbosacral spondylosis and scoliosis are observed. Arthritic change is note d in the hips. No lytic or blastic lesions are seen. Soft tissues: The patient is cachectic. IMPRESSION: 1. The duodenal wall appears thickened and hyperemic and there is faint periduodenal inflammation. Th dari findings are nonspecific and could be seen in the setting of duodenitis or possibly ulcer disease . GI follow-up is recommended with consideration of endoscopy. 2. Suspect emphysema. 3. Prostatomegaly with evidence of chronic bladder outlet obstruction. 4. Cachexia. 5. Advanced atherosclerotic disease with high-grade stenosis of the left common iliac artery and comp lete focal thrombosis of the right internal iliac artery. 6. Additional findings as above. ACT 112: Negative or not required by law. Electronically signed by: Thee Cobb M.D. 11/16/2019 8:14 AM
[2019-11-16] MEDS: THIAMINE HCL 100 MG TAB PO SCH (08:25)
[2019-11-16] MEDS: FOLIC ACID 1 MG TAB PO SCH (08:25)
[2019-11-16] MEDS: DOCUSATE SODIUM 100 MG CAP PO SCH ×2 (08:25→19:47)
[2019-11-16] MEDS: GABAPENTIN 300 MG CAP PO SCH ×3 (08:25→19:47)
[2019-11-16 08:31] LABS: Albumin Globulin Ratio 0.8 (0.9-2); Albumin Level 2.8 gm/dl (3.4-5.0); BUN Creatinine Ratio 12.4 (10-20); Bilirubin,Total 0.3 mg/dl (0.2-1); Calcium 8.9 mg/dl (8.5-10.1); Creatinine Clr Calc Pharmacy 41.3 ml/min; Est GFR (African American) 65.8; Est GFR (Non-African American) 56.7; Globulin 3.6 gm/dl (2.5-4.0); Magnesium 2.1 mg/dl (1.8-2.4); Phosphorus 3.9 mg/dl (2.5-4.9); Potassium 4.1 mmol/L (3.5-5.1); Total Protein 6.4 gm/dl (6.4-8.2)
--- NOTE | 2019-11-16 10:10 | Nuclear Medicine Report ---
NUCLEAR MEDICINE HEPATOBILIARY SCAN HISTORY: Right upper quadrant pain. assess cystic duct patency COMPARISON: Abdomen and pelvis CT 11/15/2019. TECHNIQUE: Immediately following the intravenous administration of 5.6 mCi Tc-99m Choletec, dynamic a nterior abdominal imaging was performed. FINDINGS: Uniform hepatic tracer accumulation is shown. Prompt intrahepatic biliary excretion is seen. The gall bladder, common bile duct, and small bowel are all visualized by 15 minutes. This appearance represen ts the normal sequence of biliary excretion. IMPRESSION: 1. No evidence for cystic duct obstruction. ACT 112: Negative or not required by law. Electronically signed by: Jose Rafael Noe M.D. 11/16/2019 10:08 AM
[2019-11-16] MEDS ORDERED: MAGNESIUM HYDROXIDE SUSP 30 ML UDC PO ONE (10:22)
[2019-11-16] MEDS ORDERED: bisacodyL 10 MG SUPP PR PRN (10:22)
[2019-11-16] MEDS ORDERED: CEFEPIME CONSULT ACTIVE PRN (10:28)
[2019-11-16] MEDS ORDERED: CEFEPIME 2,000 MG in SYRINGE 7.5 ML IV ONE (10:45)
--- NOTE | 2019-11-16 10:50 | Hospitalist Progress Note ---
Date of Service November 16, 2019 Assessment & Plan (1) Intractable back pain: 64-year-old male with history of chronic back pain, pretension, chronic anemia, alcoholism and smoking, presenting with severe back pain for several days Intractable back pain History of chronic back pain secondary to degenerative arthritis Per patient, he follows with Dr. Mota and airbrush painter Dr. Kim Received steroid injections, last session was [address] lumbar spine: 1. No acute fracture or subluxation. 2. Remote L2 superior endplate compression deformity with multilevel degenerative changes as above. 3. Levoscoliosis. Plan for today: Prednisone 40 mg daily, tramadol and [place] as needed, morphine as needed, warm compress Patient declines Lidoderm patch We will consult orthospine-Dr. Mota PT OT evaluation Right-sided abdominal discomfort, secondary to Duodenitis, Constipation HIDA scan: Negative for acute cholecystitis CT abdomen pelvis: Lymphadenopathy: There are shotty retroperitoneal lymph nodes. The largest measures 12 mm in short axis as seen on #115. Pelvic viscera: The prostate gland is enlarged and heterogeneous noting median lobe hypertrophy. The bladder is distended. The bladder wall is thickened and trabeculated indicating chronic outlet obstruction. 1. The duodenal wall appears thickened and hyperemic and there is faint periduodenal inflammation. These findings are nonspecific and could be seen in the setting of duodenitis or possibly ulcer disease. GI follow-up is recommended with consideration of endoscopy. 2. Suspect emphysema. 3. Prostatomegaly with evidence of chronic bladder outlet obstruction. 4. Cachexia. 5. 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 6. Additional findings as above. --Cholecystitis ruled out Start Protonix IV push twice a day, consult traffic survey technician Start milk of magnesium and as needed Dulcolax suppository, continue docusate and Senokot, may need tap water enema --Needs repeat imaging of shotty retroperitoneal lymph nodes Peripheral Arterial Disease CT abdomen pelvis: There is approximately 50% luminal narrowing of the distal abdominal aorta secondary soft plaque. There is high-grade stenosis with near complete occlusion of the left common iliac artery seen on image #181. There is complete focal thrombosis of the right internal iliac artery seen on image #238. --Denies claudication --Will need to start on aspirin if okay with GI Also need to start statin therapy --Needs to follow-up with vascular surgeon as an outpatient Needs to quit smoking Possible UTI CT abdomen pelvis reveals:The prostate gland is enlarged and heterogeneous noting median lobe hypertrophy. The bladder is distended. The bladder wall is thickened and trabeculated indicating chronic outlet obstruction. 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 Boost 3 times daily DVT prophylaxis SCDs only for now in light of possible duodenitis Disposition PT OT evaluation Usually lives at home with his Plan of care discussed in detail at length with patient and his at the bedside Questions were answered They understanding, agreeable, comfortable with plan of care Admission and Anticipated Discharge Date Admission Date: November 16, 2019 Subjective Follow-up for severe low back pain, right-sided abdominal discomfort Seen sitting up in bed, patient's at the bedside visiting Not in distress, appears somewhat weak, uncomfortable secondary to back pain Patient states chief complaint yesterday was severe back pain to the point that he was having difficulty ambulating Was only taking Tylenol at home but was not relieving the pain, follows with pain management clinic for steroid injections Also had right-sided abdominal discomfort, last bowel movement 2 days ago On exam, the patient's low back pain is 6 out of 10, somewhat radiating to his legs No weakness or numbness or paresthesias or incontinence Denies nausea vomiting, occasional epigastric pain after meals-no hematochezia, poor appetite secondary to pain No fevers or chills Review of Systems Review of Systems: All systems reviewed & are unremarkable except as noted in HPI & below Physical Exam Physical Exam: General- oriented x 3, not in distress, speaks in sentences with no effort or accessory muscle use Head- atraumatic Eyes- PERRL, EOMI, anicteric ENT- oropharynx clear Neck- supple, no JVD, no adenopathy, no thyromegaly; carotids +2/2, no bruits appreciated Lungs- clear to auscultation bilaterally, no rales/wheezes Heart- normal rate, regular rhythm; no murmur, no gallop, no rub appreciated Abdomen- normal bowel sounds, nondistended, soft, nontender, no masses or hepatosplenomegaly Back-no hematoma, erythema, edema, tenderness Extremities- no pretibial edema, no calf tenderness; peripheral pulses intact Neuro- alert, oriented x 3; CN 2-12 grossly intact; motor 5/5 bilaterally;sensation 100% on all extremities; no other gross focal neurologic deficits Skin- warm & dry Results & Data Results & Data ([facility]) Vital Signs (Past 12 Hours) Vital Signs Temp Pulse Pulse Resp BP BP Pulse Ox 11/16/19 07:52 79 11/16/19 07:19 36.8 C 72 16 131/68 99 11/16/19 02:59 74 11/16/19 02:32 37.0 C 94 H 18 141/72 H 99 11/16/19 02:03 72 19 180/80 H 97 11/15/19 23:57 86 18 191/84 H 99 Laboratory Results Laboratory Results - last 24 hr 11/15/19 11/15/19 11/15/19 21:23 21:23 22:14 WBC 17.21 H RBC 3.76 L Hgb 12.0 L Hct 35.1 L MCV 93.4 MCH 31.9 MCHC 34.2 RDW Std Deviation 45.8 RDW Coeff of [place] 13.4 Plt Count 564 H MPV 9.0 Immature Gran % (Auto) 0.4 Neut % (Auto) 71.7 Lymph % (Auto) 17.3 [place] % (Auto) 7.5 Eos % (Auto) 2.6 Baso % (Auto) 0.5 Neut # (Auto) 12.35 H Lymph # (Auto) 2.98 [place] # (Auto) 1.29 H Eos # (Auto) 0.44 Baso # (Auto) 0.08 Immature Gran # (Auto) 0.07 H Sodium 134 L Potassium 4.1 Chloride 99 Carbon Dioxide 26 Anion Gap 9.0 BUN 21 H Creatinine 1.35 Est Cr Clr Drug Dosing Not Reportable Est GFR ( Amer) 63.4 Est GFR (Non-Af Amer) 54.7 BUN/Creatinine Ratio 15.8 Glucose 105 H Lactate Calcium 10.1 Phosphorus Magnesium 2.0 Total Bilirubin 0.3 AST 18 ALT 21 Alkaline Phosphatase 82 Total Protein 7.5 Albumin 3.4 Globulin 4.1 H Albumin/Globulin Ratio 0.8 L Lipase 277 Urine Color Yellow Urine Appearance Clear Urine pH 7.0 Ur Specific [place] 1.009 Urine Protein 1+ H Urine Glucose (UA) Negative Urine Ketones Negative Urine Blood 2+ H Urine Nitrite Positive A Urine Bilirubin Negative Urine Urobilinogen Negative Ur Leukocyte Esterase 1+ H Urine WBC (Auto) 5-10 H Urine RBC (Auto) 5-10 H U Hyaline Cast (Auto) 0 U Epithel Cells (Auto) 5-10 H Urine Bacteria (Auto) 3+ H Ethyl Alcohol mg/dL COVID-19 Eval Order SARS-CoV-2, RNA, NAAT 11/16/19 11/16/19 11/16/19 00:50 00:50 01:40 WBC RBC Hgb Hct MCV MCH MCHC RDW Std Deviation RDW Coeff of [place] Plt Count MPV Immature Gran % (Auto) Neut % (Auto) Lymph % (Auto) [place] % (Auto) Eos % (Auto) Baso % (Auto) Neut # (Auto) Lymph # (Auto) [place] # (Auto) Eos # (Auto) Baso # (Auto) Immature Gran # (Auto) Sodium Potassium Chloride Carbon Dioxide Anion Gap BUN Creatinine Est Cr Clr Drug Dosing Est GFR ( Amer) Est GFR (Non-Af Amer) BUN/Creatinine Ratio Glucose Lactate 0.6 Calcium Phosphorus Magnesium Total Bilirubin AST ALT Alkaline Phosphatase Total Protein Albumin Globulin Albumin/Globulin Ratio Lipase Urine Color Urine Appearance Urine pH Ur Specific [place] Urine Protein Urine Glucose (UA) Urine Ketones Urine Blood Urine Nitrite Urine Bilirubin Urine Urobilinogen Ur Leukocyte Esterase Urine WBC (Auto) Urine RBC (Auto) U Hyaline Cast (Auto) U Epithel Cells (Auto) Urine Bacteria (Auto) Ethyl Alcohol mg/dL COVID-19 Eval [facility] [place] SARS-CoV-2, RNA, NAAT NEGATIVE 11/16/19 11/16/19 11/16/19 01:40 07:37 07:37 WBC 13.91 H RBC 3.31 L Hgb 10.5 L Hct 31.1 L MCV 94.0 MCH 31.7 MCHC 33.8 RDW Std Deviation 46.9 H RDW Coeff of [place] 13.6 Plt Count 474 H MPV 8.6 Immature Gran % (Auto) Neut % (Auto) Lymph % (Auto) [place] % (Auto) Eos % (Auto) Baso % (Auto) Neut # (Auto) Lymph # (Auto) [place] # (Auto) Eos # (Auto) Baso # (Auto) Immature Gran # (Auto) Sodium 141 D Potassium 4.1 Chloride 109 H Carbon Dioxide 26 Anion Gap 6.0 BUN 16 Creatinine 1.31 Est Cr Clr Drug Dosing 41.3 Est GFR ( Amer) 65.8 Est GFR (Non-Af Amer) 56.7 BUN/Creatinine Ratio 12.4 Glucose 93 Lactate Calcium 8.9 Phosphorus 3.9 Magnesium 2.1 Total Bilirubin 0.3 AST 15 ALT 15 Alkaline Phosphatase 69 Total Protein 6.4 Albumin 2.8 L Globulin 3.6 Albumin/Globulin Ratio 0.8 L Lipase Urine Color Urine Appearance Urine pH Ur Specific [place] Urine Protein Urine Glucose (UA) Urine Ketones Urine Blood Urine Nitrite Urine Bilirubin Urine Urobilinogen Ur Leukocyte Esterase Urine WBC (Auto) Urine RBC (Auto) U Hyaline Cast (Auto) U Epithel Cells (Auto) Urine Bacteria (Auto) Ethyl Alcohol mg/dL < 3.0 COVID-19 Eval Order SARS-CoV-2, RNA, NAAT
[2019-11-16] MEDS: TRAMADOL HCL 50 MG TABLET PO PRN (12:47)
[2019-11-16] MEDS: predniSONE 20 MG TAB PO SCH (12:56)
[2019-11-16] MEDS: HYDROCODONE/ACETAMOPHEN 5/325MG TAB PO PRN ×2 (15:30→19:46)
--- NOTE | 2019-11-16 16:44 | Gastrointestinal Consultation ---
Date of Consultation November 16, 2019 Assessment & Plan (1) Abnormal CT of the abdomen: 64 y/o male admitted for intractable back pain, was having abd pain and CTAP done demonstrating possible duodenitis. It seems he's had intermittent abd pain, and recent US ABD noted tiny stones, GB sludge, mild distention, though HIDA neg. LFTs, lipase are WNL. He's being put on prednisone, tramadol and [place] for his back pain. Abd is soft, VSS. - Would continue PPI BID as an outpt - Will arrange outpt EGD in f/u of CT findings and h/o abd pain - Would avoid ETOH, tobacco, NSAIDs. - For constipation would recommend daily bowel regimen with Miralax/Benefiber, stool softeners - It doesn't seem pt has had a colonoscopy; recommend this be performed concurrently with EGD GI will sign off, please call with questions (2) Abdominal pain: Supervising Physician Co-Signing Physician Notes I performed a history and physical examination of the patient today, including specifically on physical exam - soft abdomen. I have discussed the patient's management with the advanced practitioner. Please refer to the nurse practitioner's note for the documented findings and plan of care. Nonspecific findings on CT scan, ? duodenitis. Also may have symptomatic gallstones. EGD as OP. PO PPI BID. Recall GI if needed. History of Present Illness Reason for Consultation: abdominal pain, possible duodenitis Attending Physician: Kaden Hyde MD History of Present Illness This is a 64 y/o male with PMhx chronic back pain, tobacco and ETOH use and others admitted for intractable back pain. GI consulted for abd pain, possible duodenitis. Pt had CTAP done demonstrating thickening and hyperemia of the duodenal wall with faint periduodenal inflammation. Pt on IV PPI. Labs with HGB 10.5, WBC 13.9, normal e-lytes, LFTs, lipase. Of note, US ABD last month demonstrated mild GB distention, sludge and tiny stones, but no sonographic [place] sign or wall thickening. HIDA done this admission was neg. CT last month with large stool burden, 6 cm stool ball. Yesterday had formed brown stool. Denies nausea, vomiting, hematemesis, melena, hematochezia, CP, SOB. Allergies Allergy/AdvReac Type Severity Reaction Status Date / Time No Known Allergies Allergy Verified 11/15/19 21:31 Home Medications Home Medications Medication Instructions Recorded Confirmed Type gabapentin [Neurontin] 300 mg PO TID 07/28/19 11/15/19 History docusate sodium [Colace] 100 mg PO BID #60 cap 08/03/19 11/15/19 Rx sennosides [Senokot] 8.6 mg PO HS #30 tab 08/03/19 11/15/19 Rx baclofen 10 mg PO DIRECTED 10/27/19 11/15/19 History amlodipine 10 mg PO DAILY #30 tab 10/31/19 11/15/19 Rx folic acid 1 mg PO QAM 30 Days #30 tab 10/31/19 11/15/19 Rx thiamine HCl (vitamin B1) [Vitamin 100 mg PO QAM 30 Days #30 tab 10/31/19 11/15/19 Rx B-1] acetaminophen [Tylenol Arthritis] 650 - 1,300 mg PO DIRECTED PRN 11/15/19 11/15/19 History Patient History Medical History Chronic low back pain COPD (chronic obstructive pulmonary disease) Degenerative joint disease (DJD) of lumbar spine Lumbar degenerative disc disease Neuropathy Pneumothorax Rib fracture Tobacco abuse Surgical History History of cataract surgery S/P chest tube placement Family History Other Hypertension Social History Smoking Status: Current every day smoker packs per day: 1; Cigarettes Per Day: 5; Second Hand Exposure: No; Hx Alcohol Use: Yes Alcohol type: beer Alcohol Intake Frequency Comment: used to drink 6-10 beers daily but quit 3 weeks ago Hx Substance Use: No Preferred Language: Portuguese Communication Ability: Effective Visual Impairment: No Limitations Hearing Ability: Normal Production 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 Required: No Beliefs That Will Affect Care: None marital status: Current Living Situation: Spouse Other Information That Helps Us Care for You: No Feels Safe at Home: Yes Safety Concerns: Feels Safe At This Time Review of Systems Constitutional: no fever Eyes: no icterus Respiratory: no cough and no dyspnea Cardiovascular: no chest pain and no dyspnea at rest Gastrointestinal: as per Subjective / HPI Genitourinary: no dysuria and no hematuria Integumentary: no rash Physical Exam Constitutional: WD/WN, vitals as above Eyes: + anicteric sclerae Respiratory: normal respiratory effort Gastrointestinal (Abdomen): Inspection/Auscultation: abdomen normal to inspection and normal bowel sounds; abdomen not distended Percussion/Palpation: abdomen soft; abdomen nontender Results & Data ([facility]) Vital Signs (Past 12 Hours) Vital Signs Temp Pulse Pulse Resp BP Pulse Ox 11/16/19 15:53 71 11/16/19 15:15 36.5 C 69 16 129/62 98 11/16/19 11:21 36.6 C 69 16 105/51 L 99 11/16/19 07:52 79 11/16/19 07:19 36.8 C 72 16 131/68 99 Laboratory Results 11/16/19 11/16/19 11/16/19 Range/Units 07:37 07:37 01:40 WBC 13.91 H (4.8-10.8) K/uL RBC 3.31 L (4.7-6.1) M/uL Hgb 10.5 L (14.0-18.0) g/dL Hct 31.1 L (42-52) % MCV 94.0 (80-100) fL MCH 31.7 (25-34) pg MCHC 33.8 (32-36) g/dL RDW Std Deviation 46.9 H (36.4-46.3) fL RDW Coeff of [place] 13.6 (11.5-14.5) % Plt Count 474 H (130-400) K/uL MPV 8.6 (7.4-10.4) fL Immature Gran % (Auto) % Neut % (Auto) % Lymph % (Auto) % [place] % (Auto) % Eos % (Auto) % Baso % (Auto) % Neut # (Auto) (1.4-6.5) K/uL Lymph # (Auto) (1.2-3.4) K/uL [place] # (Auto) (0.11-0.59) K/uL Eos # (Auto) (0-0.5) K/uL Baso # (Auto) (0-0.2) K/uL Immature Gran # (Auto) (0.00-0.02) K/uL Sodium 141 D (136-145) mmol/L Potassium 4.1 (3.5-5.1) mmol/L Chloride 109 H (98-107) mmol/L Carbon Dioxide 26 (21-32) mmol/L Anion Gap 6.0 (3-11) BUN 16 (7-18) mg/dl Creatinine 1.31 (0.6-1.4) mg/dl Est Cr Clr Drug Dosing 41.3 Est GFR ( Amer) 65.8 Est GFR (Non-Af Amer) 56.7 BUN/Creatinine Ratio 12.4 (10-20) Glucose 93 (70-99) mg/dl Lactate (0.4-2.0) mmol/L Calcium 8.9 (8.5-10.1) mg/dl Phosphorus 3.9 (2.5-4.9) mg/dl Magnesium 2.1 (1.8-2.4) mg/dl Total Bilirubin 0.3 (0.2-1) mg/dl AST 15 (15-37) U/L ALT 15 (12-78) U/L Alkaline Phosphatase 69 (45-117) U/L Total Protein 6.4 (6.4-8.2) gm/dl Albumin 2.8 L (3.4-5.0) gm/dl Globulin 3.6 (2.5-4.0) gm/dl Albumin/Globulin Ratio 0.8 L (0.9-2) Lipase (73-393) U/L Urine Color Urine Appearance (Clear) Urine pH (4.5-7.5) Ur Specific [place] (1.000-1.030) Urine Protein (Negative) Urine Glucose (UA) (Negative) Urine Ketones (Negative) Urine Blood (Negative) Urine Nitrite (Negative) Urine Bilirubin (Negative) Urine Urobilinogen (Negative) Ur Leukocyte Esterase (Negative) Urine WBC (Auto) (0-5) /hpf Urine RBC (Auto) (0-4) /hpf U Hyaline Cast (Auto) (0-5) /lpf U Epithel Cells (Auto) (0-5) /lpf Urine Bacteria (Auto) (Negative) Ethyl Alcohol mg/dL < 3.0 (0-3) mg/dl COVID-19 Eval Order SARS-CoV-2, RNA, NAAT (NEGATIVE) 11/16/19 11/16/19 11/16/19 Range/Units 01:40 00:50 00:50 WBC (4.8-10.8) K/uL RBC (4.7-6.1) M/uL Hgb (14.0-18.0) g/dL Hct (42-52) % MCV (80-100) fL MCH (25-34) pg MCHC (32-36) g/dL RDW Std Deviation (36.4-46.3) fL RDW Coeff of [place] (11.5-14.5) % Plt Count (130-400) K/uL MPV (7.4-10.4) fL Immature Gran % (Auto) % Neut % (Auto) % Lymph % (Auto) % [place] % (Auto) % Eos % (Auto) % Baso % (Auto) % Neut # (Auto) (1.4-6.5) K/uL Lymph # (Auto) (1.2-3.4) K/uL [place] # (Auto) (0.11-0.59) K/uL Eos # (Auto) (0-0.5) K/uL Baso # (Auto) (0-0.2) K/uL Immature Gran # (Auto) (0.00-0.02) K/uL Sodium (136-145) mmol/L Potassium (3.5-5.1) mmol/L Chloride (98-107) mmol/L Carbon Dioxide (21-32) mmol/L Anion Gap (3-11) BUN (7-18) mg/dl Creatinine (0.6-1.4) mg/dl Est Cr Clr Drug Dosing Est GFR ( Amer) Est GFR (Non-Af Amer) BUN/Creatinine Ratio (10-20) Glucose (70-99) mg/dl Lactate 0.6 (0.4-2.0) mmol/L Calcium (8.5-10.1) mg/dl Phosphorus (2.5-4.9) mg/dl Magnesium (1.8-2.4) mg/dl Total Bilirubin (0.2-1) mg/dl AST (15-37) U/L ALT (12-78) U/L Alkaline Phosphatase (45-117) U/L Total Protein (6.4-8.2) gm/dl Albumin (3.4-5.0) gm/dl Globulin (2.5-4.0) gm/dl Albumin/Globulin Ratio (0.9-2) Lipase (73-393) U/L Urine Color Urine Appearance (Clear) Urine pH (4.5-7.5) Ur Specific [place] (1.000-1.030) Urine Protein (Negative) Urine Glucose (UA) (Negative) Urine Ketones (Negative) Urine Blood (Negative) Urine Nitrite (Negative) Urine Bilirubin (Negative) Urine Urobilinogen (Negative) Ur Leukocyte Esterase (Negative) Urine WBC (Auto) (0-5) /hpf Urine RBC (Auto) (0-4) /hpf U Hyaline Cast (Auto) (0-5) /lpf U Epithel Cells (Auto) (0-5) /lpf Urine Bacteria (Auto) (Negative) Ethyl Alcohol mg/dL (0-3) mg/dl COVID-19 Eval Order Covid19 IDNow [facility] SARS-CoV-2, RNA, NAAT NEGATIVE (NEGATIVE) 11/15/19 11/15/19 11/15/19 Range/Units 22:14 21:23 21:23 WBC 17.21 H (4.8-10.8) K/uL RBC 3.76 L (4.7-6.1) M/uL Hgb 12.0 L (14.0-18.0) g/dL Hct 35.1 L (42-52) % MCV 93.4 (80-100) fL MCH 31.9 (25-34) pg MCHC 34.2 (32-36) g/dL RDW Std Deviation 45.8 (36.4-46.3) fL RDW Coeff of [place] 13.4 (11.5-14.5) % Plt Count 564 H (130-400) K/uL MPV 9.0 (7.4-10.4) fL Immature Gran % (Auto) 0.4 % Neut % (Auto) 71.7 % Lymph % (Auto) 17.3 % [place] % (Auto) 7.5 % Eos % (Auto) 2.6 % Baso % (Auto) 0.5 % Neut # (Auto) 12.35 H (1.4-6.5) K/uL Lymph # (Auto) 2.98 (1.2-3.4) K/uL [place] # (Auto) 1.29 H (0.11-0.59) K/uL Eos # (Auto) 0.44 (0-0.5) K/uL Baso # (Auto) 0.08 (0-0.2) K/uL Immature Gran # (Auto) 0.07 H (0.00-0.02) K/uL Sodium 134 L (136-145) mmol/L Potassium 4.1 (3.5-5.1) mmol/L Chloride 99 (98-107) mmol/L Carbon Dioxide 26 (21-32) mmol/L Anion Gap 9.0 (3-11) BUN 21 H (7-18) mg/dl Creatinine 1.35 (0.6-1.4) mg/dl Est Cr Clr Drug Dosing Not Reportable Est GFR ( Amer) 63.4 Est GFR (Non-Af Amer) 54.7 BUN/Creatinine Ratio 15.8 (10-20) Glucose 105 H (70-99) mg/dl Lactate (0.4-2.0) mmol/L Calcium 10.1 (8.5-10.1) mg/dl Phosphorus (2.5-4.9) mg/dl Magnesium 2.0 (1.8-2.4) mg/dl Total Bilirubin 0.3 (0.2-1) mg/dl AST 18 (15-37) U/L ALT 21 (12-78) U/L Alkaline Phosphatase 82 (45-117) U/L Total Protein 7.5 (6.4-8.2) gm/dl Albumin 3.4 (3.4-5.0) gm/dl Globulin 4.1 H (2.5-4.0) gm/dl Albumin/Globulin Ratio 0.8 L (0.9-2) Lipase 277 (73-393) U/L Urine Color Yellow Urine Appearance Clear (Clear) Urine pH 7.0 (4.5-7.5) Ur Specific [place] 1.009 (1.000-1.030) Urine Protein 1+ H (Negative) Urine Glucose (UA) Negative (Negative) Urine Ketones Negative (Negative) Urine Blood 2+ H (Negative) Urine Nitrite Positive A (Negative) Urine Bilirubin Negative (Negative) Urine Urobilinogen Negative (Negative) Ur Leukocyte Esterase 1+ H (Negative) Urine WBC (Auto) 5-10 H (0-5) /hpf Urine RBC (Auto) 5-10 H (0-4) /hpf U Hyaline Cast (Auto) 0 (0-5) /lpf U Epithel Cells (Auto) 5-10 H (0-5) /lpf Urine Bacteria (Auto) 3+ H (Negative) Ethyl Alcohol mg/dL (0-3) mg/dl COVID-19 Eval Order SARS-CoV-2, RNA, NAAT (NEGATIVE) Diagnostic Findings CTAP 1. The duodenal wall appears thickened and hyperemic and there is faint periduodenal inflammation. These findings are nonspecific and could be seen in the setting of duodenitis or possibly ulcer disease. GI follow-up is recommended with consideration of endoscopy. 2. Suspect emphysema. 3. Prostatomegaly with evidence of chronic bladder outlet obstruction. 4. Cachexia. 5. 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 6. Additional findings as above. HIDA 1. No evidence for cystic duct obstruction. (1) Abdominal pain Abdominal location: unspecified location Qualified Code(s): R10.9 - Unspecified abdominal pain
[2019-11-16] MEDS ORDERED: ONDANSETRON INJ 2 MG/ML 2 ML VIAL IV PRN (17:32)
[2019-11-16] MEDS: SENNA 8.6 MG TAB PO SCH (19:47)
[2019-11-16] MEDS: HYDROmorphone INJ 0.5 MG/0.5 ML SYR IV PRN (20:27)
[2019-11-16] MEDS: PANTOprazole 40 MG in SYRINGE 0 ML IV SCH (20:27)
[2019-11-16] MEDS ORDERED: SODIUM CHLORIDE 0.9% 1000ML 1,000 ML IV SCH (20:45)
[2019-11-17] MEDS: predniSONE 20 MG TAB PO SCH (08:24)
[2019-11-17] MEDS: AMLODIPINE BESYLATE 5 MG TAB PO SCH (08:24)
[2019-11-17] MEDS: THIAMINE HCL 100 MG TAB PO SCH (08:24)
[2019-11-17] MEDS: FOLIC ACID 1 MG TAB PO SCH (08:24)
[2019-11-17] MEDS: GABAPENTIN 300 MG CAP PO SCH ×3 (08:25→20:33)
[2019-11-17] MEDS: PANTOprazole 40 MG in SYRINGE 0 ML IV SCH (08:25)
[2019-11-17] MEDS: DOCUSATE SODIUM 100 MG CAP PO SCH ×2 (08:26→20:33)
[2019-11-17] MEDS: TRAMADOL HCL 50 MG TABLET PO PRN ×2 (08:33→13:50)
[2019-11-17] MEDS ORDERED: CEFEPIME 1,000 MG in SYRINGE 0 ML IV SCH (09:00)
--- NOTE | 2019-11-17 12:37 | Surgery Progress Note ---
Date of Service November 17, 2019 Assessment & Plan (1) Intractable back pain: Patient is back pain is improved. He has no abdominal pain. Hepatobiliary scan is negative. Tolerating a regular diet. There is no evidence of gallbladder disease at this time. I will sign off. Please let me know if there is anything we can do to help in the future. Admission and Anticipated Discharge Date Admission Date: November 16, 2019 Subjective Has back pain but denies abdominal pain. Tolerating a regular diet without nausea or vomiting. Passed flatus but has not had a bowel movement as yet. Physical Exam Gastrointestinal (Abdomen): Inspection/Auscultation: normal bowel sounds; abdomen not distended Percussion/Palpation: abdomen soft; abdomen nontender Results & Data ([facility]) Vital Signs (Past 12 Hours) Vital Signs Temp Pulse Pulse Resp BP Pulse Ox 11/17/19 11:32 36.7 C 83 18 132/62 99 11/17/19 07:28 36.8 C 85 18 114/59 L 98 11/17/19 07:18 80 11/17/19 03:00 36.8 C 81 19 127/66 98 11/17/19 01:24 90
--- NOTE | 2019-11-17 16:41 | Hospitalist Progress Note ---
Date of Service November 17, 2019 Assessment & Plan (1) Intractable back pain: 64-year-old male with history of chronic back pain, pretension, chronic anemia, alcoholism and smoking, presenting with severe back pain for several days Intractable back pain History of chronic back pain secondary to degenerative arthritis Per patient, he follows with Dr. Mota and industrial spray painter Dr. Kim Received steroid injections, last session was [address] lumbar spine: 1. No acute fracture or subluxation. 2. Remote L2 superior endplate compression deformity with multilevel degenerative changes as above. 3. Levoscoliosis. MRI lumbar spine October 28, 2019: 1. No acute process within the lumbar spine by MRI. No abscess. No evidence for discitis/osteomyelitis. 2. No significant change in moderate multilevel degenerative disc disease and facet arthrosis within lumbar spine since MRI of April 24, 2018. Mild multilevel central canal stenosis and moderate multilevel neural foraminal stenosis. pain somewhat improving continue Prednisone 40 mg daily, tramadol and [place] as needed, morphine as needed, warm compress Patient declines Lidoderm patch We will consult ortho spine-Dr. Mota PT OT evaluation Right-sided abdominal discomfort, secondary to Duodenitis, Constipation HIDA scan: Negative for acute cholecystitis CT abdomen pelvis: Lymphadenopathy: There are shotty retroperitoneal lymph nodes. The largest measures 12 mm in short axis as seen on #115. Pelvic viscera: The prostate gland is enlarged and heterogeneous noting median lobe hypertrophy. The bladder is distended. The bladder wall is thickened and trabeculated indicating chronic outlet obstruction. 1. The duodenal wall appears thickened and hyperemic and there is faint periduodenal inflammation. These findings are nonspecific and could be seen in the setting of duodenitis or possibly ulcer disease. GI follow-up is recommended with consideration of endoscopy. 2. Suspect emphysema. 3. Prostatomegaly with evidence of chronic bladder outlet obstruction. 4. Cachexia. 5. 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 6. Additional findings as above. --Cholecystitis ruled out Start Protonix PO, consulted nurses director Start milk of magnesium and as needed Dulcolax suppository, continue docusate and Senokot, may need tap water enema --Needs repeat imaging of shotty retroperitoneal lymph nodes Peripheral Arterial Disease CT abdomen pelvis: There is approximately 50% luminal narrowing of the distal abdominal aorta secondary soft plaque. There is high-grade stenosis with near complete occlusion of the left common iliac artery seen on image #181. There is complete focal thrombosis of the right internal iliac artery seen on image #238. --Denies claudication --Will need to start on aspirin if okay with GI Also need to start statin therapy --Needs to follow-up with vascular surgeon as an outpatient Needs to quit smoking Possible UTI CT abdomen pelvis reveals:The prostate gland is enlarged and heterogeneous noting median lobe hypertrophy. The bladder is distended. The bladder wall is thickened and trabeculated indicating chronic outlet obstruction. 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 consult Boost 3 times daily DVT prophylaxis SCDs only for now in light of duodenitis Disposition PT OT evaluation Usually lives at home with his Plan of care discussed in detail at length with patient and his at the bedside Questions were answered They understanding, agreeable, comfortable with plan of care Admission and Anticipated Discharge Date Admission Date: November 16, 2019 Subjective Follow-up intractable back pain Seen sitting up in bed, comfortable, having lunch States low back pain is improved today although still significant on 6 out of 10 Has occasional shooting pain to the bilateral legs Denies paresthesias, numbness, weakness No abdominal pain, nausea vomiting, tolerating diet well No fevers or chills No other symptoms Review of Systems Review of Systems: All systems reviewed & are unremarkable except as noted in HPI & below Physical Exam Physical Exam: General- oriented x 3, not in distress, speaks in sentences with no effort or accessory muscle use Eyes- anicteric Neck- no JVD Lungs- clear breath sounds bilaterally, no rales/wheezes Heart- normal rate, regular rhythm; no murmurs Abdomen- normal bowel sounds, nondistended, soft, nontender, no Francois sign Extremities- no pretibial edema, no calf tenderness Neuro- alert, oriented x 3; no gross focal neurologic deficits Skin- warm & dry Results & Data Results & Data ([facility]) Vital Signs (Past 12 Hours) Vital Signs Temp Pulse Pulse Resp BP Pulse Ox 11/17/19 15:08 37.1 C 92 H 20 138/74 97 11/17/19 11:32 36.7 C 83 18 132/62 99 11/17/19 07:28 36.8 C 85 18 114/59 L 98 11/17/19 07:18 80
[2019-11-17] MEDS ORDERED: MAGNESIUM HYDROXIDE SUSP 30 ML UDC PO ONE (16:49)
[2019-11-17] MEDS: HYDROmorphone INJ 0.5 MG/0.5 ML SYR IV PRN (17:29)
[2019-11-17] MEDS: PANTOprazole 40 MG TAB PO SCH (20:34)
[2019-11-17] MEDS: SENNA 8.6 MG TAB PO SCH (20:34)
[2019-11-17] MEDS: HYDROCODONE/ACETAMOPHEN 5/325MG TAB PO PRN (23:22)
[2019-11-18] MEDS: HYDROmorphone INJ 0.5 MG/0.5 ML SYR IV PRN (00:28)
[2019-11-18] MEDS: predniSONE 20 MG TAB PO SCH (07:57)
[2019-11-18] MEDS: AMLODIPINE BESYLATE 5 MG TAB PO SCH (07:58)
[2019-11-18] MEDS: THIAMINE HCL 100 MG TAB PO SCH (07:59)
[2019-11-18] MEDS: PANTOprazole 40 MG TAB PO SCH ×2 (07:59→20:11)
[2019-11-18] MEDS: GABAPENTIN 300 MG CAP PO SCH ×3 (07:59→20:11)
[2019-11-18] MEDS: cefTRIAXone SODIUM 1,000 MG in DEXTROSE 5% 50 ML IV SCH (08:00)
[2019-11-18] MEDS: FOLIC ACID 1 MG TAB PO SCH (08:00)
[2019-11-18] MEDS: TRAMADOL HCL 50 MG TABLET PO PRN ×3 (08:02→20:15)
[2019-11-18] MEDS: DOCUSATE SODIUM 100 MG CAP PO SCH ×2 (08:02→20:11)
--- NOTE | 2019-11-18 11:12 | Orthopedic Progress Note ---
Date of Service November 18, 2019 Assessment & Plan (1) Intractable back pain: Admission and Anticipated Discharge Date Admission Date: November 16, 2019 CAT scan the lumbar spine demonstrates significant multilevel spondylosis to space collapse and retrolisthesis L5-S1. There is neural foraminal disease. In light of the severe discomfort per history would like to update an MRI lumbar spine rule out occult process contributing to severe discomfort. Make further recommendations upon review. Subjective Patient currently out of the room. Notes indicate some improvement of his back pain. Results & Data ([facility]) Vital Signs (Past 12 Hours) Vital Signs Temp Pulse Resp BP Pulse Ox 11/18/19 07:19 36.7 C 85 18 136/72 97 11/17/19 23:36 36.7 C 92 H 18 159/95 H 98
--- NOTE | 2019-11-18 14:35 | Magnetic Resonance Report ---
MRI OF THE LUMBAR SPINE WITHOUT CONTRAST CLINICAL HISTORY: Intractable back pain. COMPARISON STUDY: Lumbar spine MRI October 28, 2019. Lumbar spine CT November 15, 2019. TECHNIQUE: Utilizing a 1.5 Veena magnet and dedicated coil, multiplanar, multiecho imaging of the [facility] spine was performed without IV contrast. FINDINGS: For purposes of numbering on this exam, the L5-S1 disc space is assigned to axial image 2528. There i s mild S-shaped curvature of the frontal lumbar spine. Old L2 compression fractures unchanged. There is no acute compression fracture. No suspicious marrow replacement is noted. Moderate multilevel dege nerative disc disease is noted with severe multilevel facet arthrosis. Paravertebral soft tissues are unremarkable. Conus terminates at the mid L2 level. L1-2: There is mild posterior disc osteophyte complex and facet arthrosis. There is mild narrowing of the central canal and lateral recesses. Neural foramen are patent. L2-3: The central canal and neural foramen are patent. There is mild facet arthrosis. L3-4: There is disc space narrowing with posterior disc osteophytes complex, ligamentous hypertrophy and facet arthrosis. Central canal is patent. There is mild during of both lateral recesses. There is mild to moderate bilateral neural foraminal stenosis. L4-5: Note is made of disc space narrowing with disc bulge. There is facet arthrosis with ligamentous hypertrophy. There is mild narrowing of the central canal and lateral recesses. Note is made of kylie re right and moderate left neural foraminal stenosis. L5-S1: There is disc space narrowing with disc bulge. There is facet arthrosis. Mild narrowing of the lateral recesses is noted. There is moderate bilateral neural foraminal stenosis. IMPRESSION: 1. No acute process within the lumbar spine by MRI. 2. Moderate multilevel degenerative disc disease and facet arthrosis with mild multilevel central can al stenosis. 3. Moderate to severe multilevel neural foraminal stenosis, most pronounced at the right L4-L5 neural foramen. 4. Old L2 compression fracture. No acute fractures. ACT 112: Negative or not required by law. Electronically signed by: Brody Gay M.D. 11/18/2019 2:34 PM
[2019-11-18] MEDS: HYDROCODONE/ACETAMOPHEN 5/325MG TAB PO PRN ×2 (16:28→23:34)
[2019-11-18] MEDS: MAGNESIUM HYDROXIDE SUSP 30 ML UDC PO PRN (17:50)
--- NOTE | 2019-11-18 17:58 | Hospitalist Progress Note ---
Date of Service November 18, 2019 Assessment & Plan (1) Intractable back pain: 64-year-old male with history of chronic back pain, pretension, chronic anemia, alcoholism and smoking, presenting with severe back pain for several days Intractable back pain History of chronic back pain secondary to degenerative arthritis Per patient, he follows with Dr. Mota and auto painter Dr. Kim Received steroid injections, last session was [address] lumbar spine: 1. No acute fracture or subluxation. 2. Remote L2 superior endplate compression deformity with multilevel degenerative changes as above. 3. Levoscoliosis. MRI: 1. No acute process within the lumbar spine by MRI. 2. Moderate multilevel degenerative disc disease and facet arthrosis with mild multilevel central canal stenosis. 3. Moderate to severe multilevel neural foraminal stenosis, most pronounced at the right L4-L5 neural foramen. 4. Old L2 compression fracture. No acute fractures. pain improving continue Prednisone taper, tramadol and [place] as needed, morphine as needed, warm compress Patient declines Lidoderm patch consult ortho spine-Dr. Mota--> appreciate the recommendations PT OT evaluation Right-sided abdominal discomfort, secondary to Duodenitis, Constipation HIDA scan: Negative for acute cholecystitis CT abdomen pelvis: Lymphadenopathy: There are shotty retroperitoneal lymph nodes. The largest measures 12 mm in short axis as seen on #115. Pelvic viscera: The prostate gland is enlarged and heterogeneous noting median lobe hypertrophy. The bladder is distended. The bladder wall is thickened and trabeculated indicating chronic outlet obstruction. 1. The duodenal wall appears thickened and hyperemic and there is faint periduodenal inflammation. These findings are nonspecific and could be seen in the setting of duodenitis or possibly ulcer disease. GI follow-up is recommended with consideration of endoscopy. 2. Suspect emphysema. 3. Prostatomegaly with evidence of chronic bladder outlet obstruction. 4. Cachexia. 5. 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 6. Additional findings as above. --Cholecystitis ruled out Protonix PO, consulted debt and budget counselor milk of magnesium and as needed Dulcolax suppository, continue docusate and Senokot, may need tap water enema --Needs repeat imaging of shotty retroperitoneal lymph nodes Peripheral Arterial Disease CT abdomen pelvis: There is approximately 50% luminal narrowing of the distal abdominal aorta secondary soft plaque. There is high-grade stenosis with near complete occlusion of the left common iliac artery seen on image #181. There is complete focal thrombosis of the right internal iliac artery seen on image #238. --Denies claudication --Will need to start on aspirin if okay with GI Also need to start statin therapy --Needs to follow-up with vascular surgeon as an outpatient Needs to quit smoking UTI CT abdomen pelvis reveals:The prostate gland is enlarged and heterogeneous noting median lobe hypertrophy. The bladder is distended. The bladder wall is thickened and trabeculated indicating chronic outlet obstruction. Urine culture (+) Klebsiella Ceftriaxone IV, complete 10 day course of antibiotic therapy Hypertension Continue amlodipine Alcoholism Quit drinking a month ago Smoking Patient reports he is trying to quit Cachexia Swabber consult Boost 3 times daily DVT prophylaxis SCDs only for now in light of duodenitis Disposition PT OT evaluation Usually lives at home with his Plan of care discussed in detail at length with patient and his at the bedside Questions were answered They understanding, agreeable, comfortable with plan of care Admission and Anticipated Discharge Date Admission Date: November 16, 2019 Subjective ff up for back pain seen resting in bed, sitting up comfortable states back pain is improving no leg weakness, numbness no abdominal pain (+) BMs no other symptoms Review of Systems Review of Systems: All systems reviewed & are unremarkable except as noted in HPI & below Physical Exam Physical Exam: General- oriented x 3, not in distress, speaks in sentences with no effort or accessory muscle use Eyes- anicteric Neck- no JVD Lungs- clear BS bilaterally no rales no wheezing Heart- normal rate, regular rhythm; no murmurs Abdomen- normal bowel sounds, nondistended, soft, nontender Extremities- no pretibial edema, no calf tenderness Neuro- alert, oriented x 3; no gross focal neurologic deficits Skin- warm & dry Results & Data Results & Data ([facility]) Vital Signs (Past 12 Hours) Vital Signs Temp Pulse Resp BP Pulse Ox 11/18/19 14:53 37.1 C 96 H 20 149/69 H 98 11/18/19 07:19 36.7 C 85 18 136/72 97
[2019-11-18] MEDS: SENNA 8.6 MG TAB PO SCH (20:11)
[2019-11-19] MEDS: FOLIC ACID 1 MG TAB PO SCH (07:37)
[2019-11-19] MEDS: DOCUSATE SODIUM 100 MG CAP PO SCH (07:37)
[2019-11-19] MEDS: cefTRIAXone SODIUM 1,000 MG in DEXTROSE 5% 50 ML IV SCH (07:38)
[2019-11-19] MEDS: THIAMINE HCL 100 MG TAB PO SCH (07:38)
[2019-11-19] MEDS: GABAPENTIN 300 MG CAP PO SCH ×2 (07:39→12:45)
[2019-11-19] MEDS: PANTOprazole 40 MG TAB PO SCH (07:39)
[2019-11-19] MEDS: MAGNESIUM HYDROXIDE SUSP 30 ML UDC PO PRN (07:39)
[2019-11-19] MEDS: HYDROmorphone INJ 0.5 MG/0.5 ML SYR IV PRN (07:44)
[2019-11-19] MEDS: AMLODIPINE BESYLATE 5 MG TAB PO SCH (07:45)
[2019-11-19] MEDS ORDERED: predniSONE 10 MG TABLET PO SCH (09:00)
--- NOTE | 2019-11-19 10:48 | Orthopedic Consultation ---
Date of Consultation November 19, 2019 Assessment & Plan (1) Intractable back pain: I did update an MRI of the lumbar spine. It does not demonstrate evidence of acute fracture or infection. There is evidence of neuroforaminal stenosis at the lower lumbar regions. I appreciate some evidence of facet hypertrophy and arthritis. Plan at this time I do not see where he is a surgical candidate. I would encourage him to continue with interventional pain management and on a more acute basis to work with our chiropractor Jeovany Summers. Patient understands and agrees he will follow-up with our chiropractor upon discharge. Present on Admission?: Yes History of Present Illness Reason for Consultation: Back pain Attending Physician: Kaden Hyde MD History of Present Illness This is a 64-year-old male that has chronic persistent back pain which comes spasms that can last for several hours. He specifically points to the lumbar area. He does not describe any buttock pain or leg pain. He is no longer able to work secondary to the symptoms. He has had injections in the past with some modest relief. He is struggled in the past with muscle relaxers causing generalized fatigue. Again he denies any radiculopathy today. At this time he has no pain. Allergies Allergy/AdvReac Type Severity Reaction Status Date / Time No Known Allergies Allergy Verified 11/15/19 21:31 Home Medications Home Medications Medication Instructions Recorded Confirmed Type gabapentin [Neurontin] 300 mg PO TID 07/28/19 11/15/19 History docusate sodium [Colace] 100 mg PO BID #60 cap 08/03/19 11/15/19 Rx sennosides [Senokot] 8.6 mg PO HS #30 tab 08/03/19 11/15/19 Rx baclofen 10 mg PO DIRECTED 10/27/19 11/15/19 History amlodipine 10 mg PO DAILY #30 tab 10/31/19 11/15/19 Rx folic acid 1 mg PO QAM 30 Days #30 tab 10/31/19 11/15/19 Rx thiamine HCl (vitamin B1) [Vitamin 100 mg PO QAM 30 Days #30 tab 10/31/19 11/15/19 Rx B-1] acetaminophen [Tylenol Arthritis] 650 - 1,300 mg PO DIRECTED PRN 11/15/19 11/15/19 History Patient History Medical History Chronic low back pain COPD (chronic obstructive pulmonary disease) Degenerative joint disease (DJD) of lumbar spine Lumbar degenerative disc disease Neuropathy Pneumothorax Rib fracture Tobacco abuse Surgical History History of cataract surgery S/P chest tube placement Family History Other Hypertension Social History Smoking Status: Current every day smoker packs per day: 1; Cigarettes Per Day: 5; Second Hand Exposure: No; Hx Alcohol Use: Yes Alcohol type: beer Alcohol Intake Frequency Comment: used to drink 6-10 beers daily but quit 3 weeks ago Hx Substance Use: No Preferred Language: Arabic Communication Ability: Effective Visual Impairment: No Limitations Hearing Ability: Normal Personal Financial Counselor Required: No Beliefs That Will Affect Care: None marital status: Current Living Situation: Spouse Other Information That Helps Us Care for You: No Feels Safe at Home: Yes Safety Concerns: Feels Safe At This Time Physical Exam Physical Exam: On exam he gets up and moves about the bed without difficulty. He has no abnormal skin markings to inspection of the thoracolumbar spine. No significant tenderness palpation. Reasonable strength testing. Results & Data ([facility]) Vital Signs (Past 12 Hours) Vital Signs Temp Pulse Resp BP Pulse Ox 11/19/19 07:17 36.9 C 83 18 115/70 99 11/18/19 23:00 36.5 C 81 18 153/73 H 99
[2019-11-19] MEDS: HYDROCODONE/ACETAMOPHEN 5/325MG TAB PO PRN (12:44)
--- NOTE | 2019-11-19 14:15 | Hospitalist Progress Note ---
Date of Service November 19, 2019 Assessment & Plan (1) Intractable back pain: 64-year-old male with history of chronic back pain, pretension, chronic anemia, alcoholism and smoking, presenting with severe back pain for several days Intractable back pain History of chronic back pain secondary to degenerative arthritis Per patient, he follows with Dr. Mota and body painter Dr. Kim Received steroid injections, last session was [address] lumbar spine: 1. No acute fracture or subluxation. 2. Remote L2 superior endplate compression deformity with multilevel degenerative changes as above. 3. Levoscoliosis. MRI: 1. No acute process within the lumbar spine by MRI. 2. Moderate multilevel degenerative disc disease and facet arthrosis with mild multilevel central canal stenosis. 3. Moderate to severe multilevel neural foraminal stenosis, most pronounced at the right L4-L5 neural foramen. 4. Old L2 compression fracture. No acute fractures. Was given prednisone 40 mg daily, IV Dilaudid PRN, [place] PRN, warm compress, Pain improved overall Dr. Mota, orthopedic health and safety specialist, consulted Does not recommend surgical intervention at this time He does recommend continuing follow-up with with [facility] pain management and chiropractor Discharged on: Prednisone taper and PRN [place] Right-sided abdominal discomfort, secondary to Duodenitis, Constipation HIDA scan: Negative for acute cholecystitis CT abdomen pelvis: Lymphadenopathy: There are shotty retroperitoneal lymph nodes. The largest measures 12 mm in short axis as seen on #115. Pelvic viscera: The prostate gland is enlarged and heterogeneous noting median lobe hypertrophy. The bladder is distended. The bladder wall is thickened and trabeculated indicating chronic outlet obstruction. 1. The duodenal wall appears thickened and hyperemic and there is faint periduodenal inflammation. These findings are nonspecific and could be seen in the setting of duodenitis or possibly ulcer disease. GI follow-up is recommended with consideration of endoscopy. 2. Suspect emphysema. 3. Prostatomegaly with evidence of chronic bladder outlet obstruction. 4. Cachexia. 5. 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 6. Additional findings as above. --Cholecystitis ruled out Consulted health and safety specialist, recommend Protonix twice a day, avoidance of NSAIDs, EGD and colonoscopy in 2 weeks Continue bowel regimen, add p.o. milk of magnesia as needed, encouraged increased fiber intake Encouraged to continue abstaining from alcohol --Needs repeat imaging of shotty retroperitoneal lymph nodes (full CT scan report per ordered studies section above) Peripheral Arterial Disease CT abdomen pelvis: There is approximately 50% luminal narrowing of the distal abdominal aorta secondary soft plaque. There is high-grade stenosis with near complete occlusion of the left common iliac artery seen on image #181. There is complete focal thrombosis of the right internal iliac artery seen on image #238. --Denies claudication --Okay to start aspirin per GI --Start aspirin 81 mg daily, start Lipitor 20 mg daily, increase if tolerated, monitor LFTs --Please refer to vascular surgeon Patient highly encouraged to quit smoking UTI, Klebsiella CT abdomen pelvis reveals:The prostate gland is enlarged and heterogeneous noting median lobe hypertrophy. The bladder is distended. The bladder wall is thickened and trabeculated indicating chronic outlet obstruction. Urine culture (+) Klebsiella Given ceftriaxone IV x4 days Ciprofloxacin x6 more days to complete 10-day course Encouraged to take probiotics daily x2 weeks Hypertension Continue amlodipine Alcoholism Quit drinking a month ago Smoking Patient reports he is trying to quit Encouraged to quit smoking Cachexia Management Trainer consult Continue boost 3 times daily DVT prophylaxis SCDs only for now in light of duodenitis Disposition PT OT evaluation: Recommend discharge to home DC home today Follow-up with PCP for discharge instructions Follow-up with [facility] pain management and chiropractor service Follow-up with health and safety specialist for EGD and colonoscopy in 2 weeks Refer to vascular surgery Plan of care discussed in detail at length with patient and his at the bedside All questions were answered They understanding, agreeable, comfortable with plan of care Admission and Anticipated Discharge Date Admission Date: November 16, 2019 Subjective ff up for intractable back pain Seen sitting up in bed, comfortable, no distress, in good spirits States pain is much better Able to ambulate better No focal weakness or numbness, no claudication Denies abdominal pain problems with urination Positive bowel movements, melena or hematochezia Denies headache, dizziness, chest pain or palpitations States he is ready and would like to be discharged today Review of Systems Review of Systems: All systems reviewed & are unremarkable except as noted in HPI & below Physical Exam Physical Exam: General- oriented x 3, not in distress, speaks in sentences with no effort or accessory muscle use Eyes- anicteric Neck- no JVD Lungs- clear breath sounds, no crackles, no wheezing bilaterally Heart- normal rate, regular rhythm; no murmurs Abdomen- normal bowel sounds, nondistended, soft, nontender Extremities- no pretibial edema, no calf tenderness Strong pedal pulses, no cyanosis Neuro- alert, oriented x 3; no gross focal neurologic deficits Skin- warm & dry Results & Data Results & Data ([facility]) Vital Signs (Past 12 Hours) Vital Signs Temp Pulse Resp BP Pulse Ox 11/19/19 13:13 36.9 C 83 18 115/70 99 11/19/19 07:17 36.9 C 83 18 115/70 99
--- NOTE | 2019-11-19 14:43 | Discharge Summary ---
Date of Service November 19, 2019 Admission HPI Per Admitting Provider History obtained from patient, family, and records. Medical history significant for hypertension, osteoarthritis, constipation, chronic anemia (baseline hemoglobin 11-12), past alcohol use, ongoing tobacco abuse. Last confinement 3 weeks ago for sepsis secondary to lower lobe pneumonia and UTI. Yesterday afternoon patient experienced achy right flank pain going to his right upper abdomen some nausea, no emesis. Good BM. No chest pain, no S OB, no headache, no unusual cough symptoms. No hematuria. No fever no chills. At the ER, patient received Zosyn for sepsis. Medical History as above Surgical History : Chest tube insertion for pneumothorax Family History : Hypertension Personal/Social history : Half pack daily, past alcohol abuse, part-time work at [employer] Admission Exam Per Admitting Provider GENERAL: Slightly uncomfortable, no respiratory distress SKIN: Pallor , warm HEENT: Pale palpebral conjunctivae, no ptosis, dry buccal mucosa, partially edentulous NECK : Supple, no tenderness CHEST : Decreased breath sounds, no tenderness HEART : RRR, no obvious murmurs ABDOMEN: Some distention, right upper quadrant tenderness EXTREMITIES : No LE swelling/tenderness, no other conspicuous deformities noted NEUROLOGIC : Coherent, no facial asymmetry, no other gross focality Principal Diagnosis Intractable back pain History of chronic back pain secondary to degenerative arthritis Discharge Exam General- oriented x 3, not in distress, speaks in sentences with no effort or accessory muscle use Eyes- anicteric Neck- no JVD Lungs- clear breath sounds, no crackles, no wheezing bilaterally Heart- normal rate, regular rhythm; no murmurs Abdomen- normal bowel sounds, nondistended, soft, nontender Extremities- no pretibial edema, no calf tenderness Strong pedal pulses, no cyanosis Neuro- alert, oriented x 3; no gross focal neurologic deficits Skin- warm & dry Discharge Data Allergies Allergy/AdvReac Type Severity Reaction Status Date / Time No Known Allergies Allergy Verified 11/15/19 21:31 Consultations 11/15/19 23:27 ED Decision to Admit Stat 11/16/19 02:31 Consult General Surgery Routine 11/16/19 10:49 Consult Orthopedic Surgery Routine 11/16/19 15:51 Consult Gastroenterology Routine Procedures Performed Operation Date: 11/16/19 09:00 <No data on this case meets the specified criteria> Ordered Studies 11/15/19 21:09 CT abd pelvis IV con only Urgent COMPARISON STUDY: Abdominal CT dated 10/27/2019. TECHNIQUE: Following the IV administration of 93 cc of Optiray 320, CT scan of the abdomen and pelvis is performed from the lung bases to the proximal femora. Images are reviewed in the axial, sagittal, and coronal planes. IV contrast was administered without complication. A dose lowering technique was utilized adhering to the principles of ALARA. FINDINGS: Lung bases: The heart is normal in size and without pericardial effusion. There are bilateral fat-containing Bochdalek hernias. Emphysematous changes suspected. No airspace consolidation or pleural effusion is identified. Liver: The contrast-enhanced liver is normal in size, contour, and attenuation. There is no intrahepatic biliary ductal dilatation. The hepatic veins and portal veins are patent. Gallbladder: Unremarkable. Spleen: Normal in size and attenuation. Pancreas: Unremarkable. Adrenal glands: Unremarkable. Kidneys: The contrast enhanced kidneys demonstrate cortical atrophy and are without hydronephrosis. Foci of cortical scarring are noted in both kidneys. The kidneys enhance symmetrically. A 2.2 cm cyst arises from the right lower pole. Additional subcentimeter cortical hypodensities also likely represent cysts but are too small for definitive characterization. Abdominal vasculature: The abdominal aorta is normal in course and caliber noting advanced atherosclerotic calcification. There is approximately 50% luminal narrowing of the distal abdominal aorta secondary soft plaque. There is high-grade stenosis with near complete occlusion of the left common iliac artery seen on image #181. There is complete focal thrombosis of the right internal iliac artery seen on image #238. Bowel: There is no bowel obstruction. Fecal retention is noted throughout the colon. The proximal duodenum appears mildly thick walled with mucosal hyperemia. Question faint periduodenal inflammation. The appendix is well-visualized and normal. Peritoneum: There is no intraperitoneal free air or abdominal ascites. Lymphadenopathy: There are shotty retroperitoneal lymph nodes. The largest measures 12 mm in short axis as seen on #115. Pelvic viscera: The prostate gland is enlarged and heterogeneous noting median lobe hypertrophy. The bladder is distended. The bladder wall is thickened and trabeculated indicating chronic outlet obstruction. Skeletal structures: The skeletal structures are osteopenic. There is a chronic compression deformity of L2. Mild to moderate lumbosacral spondylosis and scoliosis are observed. Arthritic change is noted in the hips. No lytic or blastic lesions are seen. Soft tissues: The patient is cachectic. IMPRESSION: 1. The duodenal wall appears thickened and hyperemic and there is faint periduodenal inflammation. These findings are nonspecific and could be seen in the setting of duodenitis or possibly ulcer disease. GI follow-up is recommended with consideration of endoscopy. 2. Suspect emphysema. 3. Prostatomegaly with evidence of chronic bladder outlet obstruction. 4. Cachexia. 5. 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 6. Additional findings as above. CT lumbar spine wo con Urgent COMPARISON: CT abdomen and pelvis of same day, CT lumbar spine 10/27/2019 TECHNIQUE: Multiple axial CT images of the lumbar spine were obtained without the use of IV contrast. A dose lowering technique was used consistent with the principals of ALARA. FINDINGS: Remote superior endplate compression deformity at L2 with remote superior endplate Schmorl's nodes at T12 and L1. There is severe right-sided disc space narrowing with moderate spondylitic spurring at L4-L5. Lumbar levoscoliosis. Moderate disc space narrowing with vacuum disc phenomena and spondylitic spurring at L5-S1. Multilevel posterior annular disc bulging. Posterior disc osteophyte complex formations are noted at L4-L5 and L5-S1. Moderate to severe multilevel facet arthrosis. No acute fracture or subluxation. The imaged sacrum and iliac bones appear intact. Mild mucous plugging of the left lung base. Mixed plaque of the abdominal aorta and branch vessels. Paravertebral tissues are within normal limits. IMPRESSION: 1. No acute fracture or subluxation. 2. Remote L2 superior endplate compression deformity with multilevel degenerative changes as above. 3. Levoscoliosis. 11/18/19 11:12 MR lumbar spine wo con Routine COMPARISON STUDY: Lumbar spine MRI October 28, 2019. Lumbar spine CT November 15, 2019. TECHNIQUE: Utilizing a 1.5 Veena magnet and dedicated coil, multiplanar, multiecho imaging of the lumbar spine was performed without IV contrast. FINDINGS: For purposes of numbering on this exam, the L5-S1 disc space is assigned to axial image 2528. There is mild S-shaped curvature of the frontal lumbar spine. Old L2 compression fractures unchanged. There is no acute compression fracture. No suspicious marrow replacement is noted. Moderate multilevel degenerative disc disease is noted with severe multilevel facet arthrosis. Paravertebral soft tissues are unremarkable. Conus terminates at the mid L2 level. L1-2: There is mild posterior disc osteophyte complex and facet arthrosis. There is mild narrowing of the central canal and lateral recesses. Neural foramen are patent. L2-3: The central canal and neural foramen are patent. There is mild facet arthrosis. L3-4: There is disc space narrowing with posterior disc osteophytes complex, ligamentous hypertrophy and facet arthrosis. Central canal is patent. There is mild during of both lateral recesses. There is mild to moderate bilateral neural foraminal stenosis. L4-5: Note is made of disc space narrowing with disc bulge. There is facet arthrosis with ligamentous hypertrophy. There is mild narrowing of the central canal and lateral recesses. Note is made of severe right and moderate left neural foraminal stenosis. L5-S1: There is disc space narrowing with disc bulge. There is facet arthrosis. Mild narrowing of the lateral recesses is noted. There is moderate bilateral neural foraminal stenosis. IMPRESSION: 1. No acute process within the lumbar spine by MRI. 2. Moderate multilevel degenerative disc disease and facet arthrosis with mild multilevel central canal stenosis. 3. Moderate to severe multilevel neural foraminal stenosis, most pronounced at the right L4-L5 neural foramen. 4. Old L2 compression fracture. No acute fractures. Hospital Course (1) Intractable back pain: 64-year-old male with history of chronic back pain, pretension, chronic anemia, alcoholism and smoking, presenting with severe back pain for several days Intractable back pain History of chronic back pain secondary to degenerative arthritis Per patient, he follows with Dr. Mota and neckties painter Dr. Kim Received steroid injections, last session was [address] lumbar spine: 1. No acute fracture or subluxation. 2. Remote L2 superior endplate compression deformity with multilevel degenerative changes as above. 3. Levoscoliosis. MRI: 1. No acute process within the lumbar spine by MRI. 2. Moderate multilevel degenerative disc disease and facet arthrosis with mild multilevel central canal stenosis. 3. Moderate to severe multilevel neural foraminal stenosis, most pronounced at the right L4-L5 neural foramen. 4. Old L2 compression fracture. No acute fractures. Was given prednisone 40 mg daily, IV Dilaudid PRN, [place] PRN, warm compress, Pain improved overall Dr. Mota, orthopedic helpdesk specialist, consulted Does not recommend surgical intervention at this time He does recommend continuing follow-up with with [facility] pain management and chiropractor Discharged on: Prednisone taper and PRN [place] Right-sided abdominal discomfort, secondary to Duodenitis, Constipation HIDA scan: Negative for acute cholecystitis CT abdomen pelvis: Lymphadenopathy: There are shotty retroperitoneal lymph nodes. The largest measures 12 mm in short axis as seen on #115. Pelvic viscera: The prostate gland is enlarged and heterogeneous noting median lobe hypertrophy. The bladder is distended. The bladder wall is thickened and trabeculated indicating chronic outlet obstruction. 1. The duodenal wall appears thickened and hyperemic and there is faint periduodenal inflammation. These findings are nonspecific and could be seen in the setting of duodenitis or possibly ulcer disease. GI follow-up is recommended with consideration of endoscopy. 2. Suspect emphysema. 3. Prostatomegaly with evidence of chronic bladder outlet obstruction. 4. Cachexia. 5. 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 6. Additional findings as above. --Cholecystitis ruled out Consulted quality engineer medical device, recommend Protonix twice a day, avoidance of NSAIDs, EGD and colonoscopy in 2 weeks Continue bowel regimen, add p.o. milk of magnesia as needed, encouraged increased fiber intake Encouraged to continue abstaining from alcohol Peripheral Arterial Disease CT abdomen pelvis: There is approximately 50% luminal narrowing of the distal abdominal aorta secondary soft plaque. There is high-grade stenosis with near complete occlusion of the left common iliac artery seen on image #181. There is complete focal thrombosis of the right internal iliac artery seen on image #238. --Denies claudication --Okay to start aspirin per GI --Start aspirin 81 mg daily, start Lipitor 20 mg daily, increase if tolerated, monitor LFTs --Please refer to vascular surgeon Patient highly encouraged to quit smoking UTI, Klebsiella CT abdomen pelvis reveals:The prostate gland is enlarged and heterogeneous noting median lobe hypertrophy. The bladder is distended. The bladder wall is thickened and trabeculated indicating chronic outlet obstruction. Urine culture (+) Klebsiella Given ceftriaxone IV x4 days Ciprofloxacin x6 more days to complete 10-day course Encouraged to take probiotics daily x2 weeks Abnormal CT Abdomen and Pelvis Findings: (PLEASE REFER TO FULL CT REPORT in the Ordered Studies Above) IMPRESSION: 1. The duodenal wall appears thickened and hyperemic and there is faint periduodenal inflammation. These findings are nonspecific and could be seen in the setting of duodenitis or possibly ulcer disease. GI follow-up is recommended with consideration of endoscopy. 2. Suspect emphysema. 3. Prostatomegaly with evidence of chronic bladder outlet obstruction. 4. Cachexia. 5. 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 Kidneys: A 2.2 cm cyst arises from the right lower pole. Additional subcentimeter cortical hypodensities also likely represent cysts but are too small for definitive characterization. Lymphadenopathy: There are shotty retroperitoneal lymph nodes. The largest measures 12 mm in short axis as seen on #115. 6. Additional findings as above. -- Further work up, management and ff up as outpatient Hypertension Continue amlodipine Alcoholism Quit drinking a month ago Smoking Patient reports he is trying to quit Encouraged to quit smoking Cachexia Fire Prevention Specialist consult Continue boost 3 times daily Disposition PT OT evaluation: Recommend discharge to home DC home today Follow-up with PCP for discharge instructions Follow-up with [facility] pain management and chiropractor service Follow-up with quality engineer medical device for EGD and colonoscopy in 2 weeks Refer to vascular surgery Plan of care discussed in detail at length with patient and his at the bedside All questions were answered They understanding, agreeable, comfortable with plan of care Total Time Total Time Spent Total Time Spent (In Minutes): >30 MINUTES Discharge Plan Discharge Items Patient Disposition: Home - Self-Care Reason For Visit: SEPSIS, HTN URGENCY, DC ISOL, COVID NEGATI Discharge Diagnosis: Intractable back pain Activity: Resume your previous activity Activity Comment: Always use the rolling walker, always ambulate carefully, resume activity gradually as tolerated Lifting: Wait until after follow-up appointment Exercise/Sports: Wait until after follow-up appointment Driving/Machine Use: No driving until reevaluated and allowed by primary care physician Non-emergency contact: Primary Care Provider and Surgeon Call non-emergency contact if: you have any medication questions, your symptoms worsen, your pain is not controlled, your pain is worsening, your pain is unusual for you, your pain is concerning for you and you have a fever Follow-up/Referrals: Augustin Bearden MD [Hospitalist] - Marlon Soriano DO [Primary Care Provider] - 11/22/19 12:00 pm (Date & Time 11/22/2019 12:00 PM Provider Marlon Soriano DO [facility] ) Diet: Heart Healthy Add Attending Provider Instructions: Please review new medication list and follow instructions carefully. Your new medications include: Prednisone, to decrease inflammation of the lumbar spine [place], narcotic for pain control Protonix, acid suppressant for duodenitis Ciprofloxacin, antibiotic for UTI Aspirin, and Lipitor, for left iliac artery blockage Milk of magnesium, for constipation Take prednisone 10 mg tablet as follows: Take 3 tablets or 30 mg x 1 day, then Take 2 tablets or 20 mg x 2 days, then Take 1 tablet or 10 mg x 2 days, then stop Always take prednisone with a full stomach. Do not drive or operate machineries while taking [place]. Always take Protonix at least 30 minutes before breakfast and dinner Take a probiotic for at least 2 weeks. Always take aspirin with a full stomach. Inform your doctor if you are having leg cramping or weakness she may be a side effect of Lipitor. Clear primary care physician or Dr. Mota, or return to the ER if with worsening of symptoms, Including worsening of back pain, abdominal pain, black stools or bloody stools, nausea or vomiting, poor appetite, fever or chills, problems with urination. Return to the ER immediately if you are having leg weakness, numbness, tingling sensation, incontinence. Follow-up with Dr. Soriano on , November 22, 2019 as noted above. Follow-up with pain management clinic and chiropractor in 1 to 2 weeks. Follow-up with Dr. Francine Roche, [facility] quality engineer medical device, in 2 weeks for EGD and colonoscopy. Please call his office for an appointment. Contact information outlined above. Follow-up with vascular surgery clinic. Primary care physician can arrange for this. Pending Studies at Discharge: Yes Studies:: EGD and colonoscopy in 1 to 2 weeks Stand-Alone Forms: My [employer], Smoking Cessation Medications and DC Order Prescriptions: New hydrocodone-acetaminophen [[place]] 5-325 mg Tablet 1 tab PO Q4H PRN (Reason: pain) Qty: 20 RF: 0 magnesium hydroxide [Milk of Magnesia] 400 mg/5 mL Suspension 30 ml PO Q6H PRN (Reason: constipation) 30 Days Qty: 1 RF: 0 pantoprazole 40 mg Tablet,Delayed Release (Dr/Ec) 40 mg PO BID Qty: 60 RF: 0 prednisone 10 mg tablet 10 mg PO UD Qty: 9 RF: 0 ciprofloxacin HCl 500 mg tablet 500 mg PO Q12H Qty: 12 RF: 0 aspirin [Ecotrin Low Strength] 81 mg tablet,delayed release (DR/EC) 81 mg PO DAILY Qty: 30 RF: 2 atorvastatin [Lipitor] 20 mg tablet 20 mg PO DAILY Qty: 30 RF: 2 Continued acetaminophen 650 mg Tablet Extended Release 650 - 1,300 mg PO DIRECTED PRN (Reason: Pain) RF: 0 gabapentin [Neurontin] 300 mg capsule 300 mg PO TID RF: 0 sennosides [Senokot] 8.6 mg tablet 8.6 mg PO HS Qty: 30 RF: 0 docusate sodium [Colace] 100 mg capsule 100 mg PO BID Qty: 60 RF: 0 baclofen 10 mg tablet 10 mg PO DIRECTED RF: 0 thiamine HCl (vitamin B1) [Vitamin B-1] 100 mg Tablet 100 mg PO QAM 30 Days Qty: 30 RF: 0 folic acid 1 mg Tablet 1 mg PO QAM 30 Days Qty: 30 RF: 0 amlodipine 10 mg tablet 10 mg PO DAILY Qty: 30 RF: 0 Discharge Orders: Discharge Order (Routine); Ordered 11/19/19 Ordered By: Kaden Hyde Admission Data Admit Date/Time: 11/16/19 01:23 Attending Provider: Kaden Hyde Admit Provider: Lei Serra Primary Care Provider: Marlon Soriano Other Providers: Ishaan Raymond ; Lei Serra ; Richard Sears ; Daniel Mota ; Augustin Bearden Other Interventions: Discharge Summary Assessment (RN) Last Done: 11/19/19 13:13
== END 2019-11-19 15:11 | disposition home or self-care (01) ==
LOC: ED 20:46 → SUATTDRO 11-16 01:23 → INTOOBSV 11-16 01:23 → 2N 11-16 01:23

== ENCOUNTER 2023-05-08 05:26 | Inpatient (IN) ==
--- OUTSIDE RECORDS SUMMARY | 2023-05-08 05:37 | External Medical Summary | Summary of Care ---
Author Name Unknown Organization [facility] Address [address] [place] [address] Phone [phone] Care Team Providers Care Experimental [employer]ic [employer] Name Role Phone Nora Espinosa MD Primary Care Provider [phone] Reason for Visit * Reason Comments Follow Up Right shoulder Encounter Details Date Type Department Care Team (Late st Contact Info) Description 04/29/2023 1:30 PM EST Office Visit Orthopaedics [facility] [address] [place] [address] Farrukh Toure MD [address] [place] [address] Rotator cuff arthropathy of right shoulder* Allergies No known active allergiesdocumented as of this encounter (statuses as of 04/29/2023) Medications Medication Sig Dispensed Refills Start Date End Date Status Multi-Vitamins Oral Tablet Take 1 Tablet by mouth in the morning. 0 Active Aspirin 81 MG Oral Tablet Delayed ReleaseIndications:P eripheral vascular disease (HCC) Take 1 Tablet by mouth in the morning. 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 180 Capsule 1 10/29/2022 Active Lisinopril 10 MG Oral Tablet (Prinivil)Indication s:Benign hypertension with CKD (chronic kidney disease) stage III ([facility]),Microalbuminur ia Take 1 Tablet by mouth in the morning. 90 Tablet 3 11/27/2022 Active Folic Acid 1 MG Oral TabletIndications:Pr otein-calorie malnutrition, unspecified severity ([facility]) TAKE 1 TABLET BY MOUTH EVERY DAY 90 Tablet 1 12/24/2022 Active Atorvastatin Calcium 20 MG Oral Tablet (Lipitor)Indications :Dyslipidemia TAKE 1 TABLET BY MOUTH EVERY DAY 90 Tablet 0 03/21/2023 Active NATURAL SUPPLEMENT Take by mouth daily. Metanx for neuropathy in feet 0 Active Tiotropium [place] Monohydrate 18 MCG Inhalation Capsule (Spiriva HandiHaler)Indicatio ns:COPD, group A, by GOLD 2017 classification ([facility]) Inhale 1 Capsule by mouth in the morning. For inhaler only, do not swallow.. 30 Capsule 11 03/31/2023 Active Gabapentin 300 MG Oral Capsule (Neurontin)Indicatio ns:Lumbar degenerative disc disease,Spinal stenosis of lumbar region with neurogenic claudication TAKE 1 CAPSULE BY MOUTH IN THE MORNING TAKE 2 CAPSULES AFTERNOON AND TAKE 2 CAPSULES IN THE EVENING 120 Capsule 5 04/01/2023 Active predniSONE 10 MG Oral Tablet (Deltasone)Indicatio ns:PMR (polymyalgia rheumatica) ([facility]) Take 1 Tablet by mouth in the morning. Take with food.. 30 Tablet 0 04/13/2023 Active Potassium Chloride Constance ER 10 MEQ Oral Tablet Extended ReleaseIndications:H ypokalemia Take 1 Tablet by mouth in the morning. 30 Tablet 5 04/13/2023 Active DuoDERM CGF Dressing ExternalIndications: Pressure injury of right hip, stage 3 ([facility]) Apply in ulcer and change every 2 days . 20 Each 3 04/13/2023 Active oxyCODONE HCl 5 MG Oral Tablet (Oxy IR)Indications:Cervi angela myelopathy ([facility]),Lumbar degenerative disc disease,Osteoarthrit is of spine with radiculopathy, cervical region Take 1 Tablet by mouth every 6 hours as needed for Pain, Severe. 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 Spinal. HTN, goal below 130/80 01/20/2020 Dyslipidemia 01/20/2020 Peripheral vascular disease 01/17/2020 Lumbar degenerative disc disease 09/24/2019 Osteoarthritis of spine with radiculopathy, cerv ical region 08/31/2019 Left cervical radiculopathy 08/31/2019 Other constipation 08/31/2019 ADVANCE DIRECTIVE INFORMATION 01/10/2008 Overview: No, Advance Directive brochure given to patient. History of tobacco abuse documented as of this encounter (statuses as of 04/29/2023) Resolved Problems Problem Noted Date Diagnosed Date Resolved Date COPD (chronic obstructive pulmonary disease) 2 11/18/2022 Overview: Per COPD GOLD Classification Preoperative general physical examination 07/08/2021 03/31/2023 Stage 3a chronic kidney disease 01/14/2020 01/17/2020 Overview: Per CKD protocol - Per CKD protocol Kidney disease, chronic, sta ge III (GFR 30-59 ml/min) 08/13/2019 01/17/2020 Overview: Per CKD protocol Fracture of rib of left side 08/06/2011 02/02/2012 NO KNOWN PROBLEMS 11/30/2006 10/27/2011 documented as of this encounter (statuses as of 04/29/2023) Immunizations Name Administration Dates Next Due COVID-19 mRNA, LNP-s, No Pre serve, 2-Dose Series (Moderna) 07/08/2020,06/10/2020 COVID-19, mRNA, LNP-s, PF, B ooster, 100mcg/0.5mg (Moderna) 03/09/2021 Pneumococcal Polysaccharide PPV23 (Pneumovax) 01/07/2019,03/14/2009(Deferred: Patient Refused) Seasonal Influenza, PF, 6 M & above, IM , (FluLaval or Fluzone) 01/14/2021,11/22/2019 TDAP (age 11 and older)(Adacel) 06/17/2008 documented as of this encounter Social History Tobacco Use Types Packs/Day Years Used Date Smoking Tobacco: Former Cigarettes 1 35 0 08/06/1987 - 08/05/2022 Smokeless Tobacco: Never Comments:quit august 05 Alcohol Use Standard Drinks/Week Comments Not Currently 5 (1 standard drink = 0.6 oz pur e alcohol) PHQ-2 Answer Date Recorded PHQ Adult Total Score 0 11/11/2022 Hunger Vital Sign Answer Date Recorded Within the past 12 months, y ou worried that your food would run out before you got the money to buy more. Never true 11/12/19 23 Within the past 12 months, t he food you bought just didn't last and you didn't have money to get more. Never true 11/11/2022 Sex and Gender Information Value Date Recorded Sex Assigned at Male 12/24/2019 2:22 PM EDT Gender Identity Male 12/24/2019 2:22 PM EDT Sexual Orientation Straight 12/24/2019 2: 22 PM EDT Job Start Date Occupation Industry Not on file Not on file Not on file documented as of this encounter Functional Status Functional Status Response Date of Assess ment Are you deaf or do you have serious difficulty h earing? No 10/07/2021 Are you blind or do you have serious difficulty seeing, even when wearing glasses? No 10/07/2021 Do you have serious difficul ty walking or climbing stairs? (5 years old or older) Yes 10/07/2021 Do you have difficulty dress ing or bathing? (5 years old or older) Yes 10/07/2021 Because of a physical, menta l, or emotional condition, do you have difficulty doing errands alone such as visiting a doctor s office or shopping? (15 years old or older) Yes 10/08/19 22 Cognitive Status Response Date of Assessm ent Because of a physical, menta l, or emotional condition, do you have serious difficulty concentrating, remembering, or making decisions? (5 years old or older) No 10/07/2021 documented as of this encounter Progress Notes * Farrukh Toure MD - 04/29/2023 1:32 PM EST Collin Tony [id number] Collin Tony is a 67 year old male who presents for f/u to [facility] for right shoulder injury/pain. I saw him initially for this on 12/13/2022 Collin Tony is here with his/her History: Level of pain: reviewed and agree with Nursing Notes for HPI elements History on 12/13/2022 - presents today for R shoulder pain Referred by Dr. Yuan for shoulder injection Pt is RHD I have read the note from when the patient was evaluated on 11/22/[address] Harjit Yuan (orthopedic surgery, sports medicine). Diagnosed with suspected rotator cuff arthropathy ofthe right shoulder. Physical therapy was recommended. The possibility of corticosteroid injection in the future was discussed. Patient has not yet started therapy but decide he would like to try steroid injection. 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 Spinal. 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 Employer: [employer] Tobacco Use Smoking status: Former Current packs/day: 0.00 Average packs/day: 1 pack/day for 35.0 years (35.0 ttl pk-yrs) Types: Cigarettes Start date: 08/06/1987 Quit date: 08/05/2022 Years since quittin.7 Smokeless tobacco: Never Tobacco comments: quit august 05 Vaping Use Vaping Use: Never used Substance and Sexual Activity Alcohol use: Not Currently Alcohol/week: 5.0 standard drinks of alcohol Types: 6 12 oz of beer per week Drug use: No Sexual activity: Not Currently Other Topics Concern Not on file Social History Narrative Not on file Social Determinants of Health Financial Resource Strain: Not on file Food Insecurity: No Food Insecurity (11/11/2022) Hunger Vital Sign Worried About Running Out of Food in the Last Year: Never true Ran Out of Food in the Last Year: Never true Transportation Needs: Not on file Physical Activity: Not on file Stress: Not on file Social Connections: Not on file Intimate Partner Violence: Not on file Housing Stability: Not on file Physical Exam Constitutional: generally well-nourished and in no acute distress Psychiatric: Mood and Affect normal Eyes: EOMI Respiratory: normal respiratory effort with regular rate and rhythm Forward flexion 90, abduction 60, external rotation 0, able to reach his back pocket with internal rotation Apley Strength 4/5 diffusely Radiology: 11/17/2022: Four view x-ray of the right shoulder FINDINGS Mild glenohumeral and moderate acromioclavicular joint osteoarthritis. No acute fracture or dislocation. Arterial vascular calcifications. IMPRESSION IMPRESSION 1. Moderate acromioclavicular osteoarthritis and mild glenohumeral osteoarthritis. Assessment and Plan: 1) right shoulder pain Suspect secondary to rotator cuff arthropathy I have read the note from when the patient was evaluated on 11/22/[address] Harjit Yuan (orthopedic surgery, sports medicine). Diagnosed with suspected rotator cuff arthropathy ofthe right shoulder. Physical therapy was recommended. The possibility of corticosteroid injection in the future was discussed. Patient has not yet started therapy but decide he would like to try steroid injection. Glenohumeral joint steroid injection performed with ultrasound guidance on 12/13/2022 been it fit him for only several weeks. However important to note that this Note: Injection was completed with the patient seated in his wheelchair do difficulty with transfer, which provided less than optimal posi tion compared to typical lateral decubitus, however, injection was still performed with medication seen entering the glenohumeral joint. Patient desired to have the injection performed again and I was agreeable only if able to perform in lateral decubitus position given lack of longstanding benefit to the initial injection. Patient prefer not to transfer given difficulty. Discussed trial of palpation guided subacromial bursa injection versus ultrasound. Pain in his wifepreferred to try palpation guided which I did today 04/29/2023 Telephone follow-up in 4 to 6 weeks Procedure note (shoulder subacromial bursa injection) on right: Time out: Prior to injection, a time out was called to confirm the administration of appropriate medicine, patient name, procedure and confirm to the best of our ability and knowledge the presence of any necessary risks and benefits. Patient verbalizes understanding. Posteriolateral approach used. Sterile techinique applied. Skin sterilized with chlorhexidine and cleaned with alcohol swab. Subacromial bursa injected using 1.5 inch, 25 gauge needle. Injected with 1 ml lidocaine 1%, triamcinolone acetonide 40mg/ml 1 ml. Patient tolerated procedure with no significant bleeding or adverse reaction. Patient instructed to call or return to clinic for fever or warmth and redness at injection site for potential infection. Patient also advised as to potential for steroid flare reaction including increased pain and redness at injection site which should be treated with ice and resolve within 24 hours. Farrukh Toure MD Primary Care Sports Medicine Orthopaedics [address] [address] documented in this encounter Nursing Notes * Anisa Dang MED ASSIST - 04/29/2023 1:29 PM EST Patient presents today for right rotator cuff injection. Previously injected 10/09/23, lasted 'a couple weeks' documented in this encounter Plan of Treatment Upcoming Encounters Date Type Department Care Team (Late st Contact Info) Description 06/06/2023 3:15 PM EDT Telemedicine Orthopaedics [facility] [address] [place] [address] Farrukh Toure MD [address] [place] [address] 06/14/2023 3:00 PM EDT Office Visit Cardiology, [facility] [address] [place] [address] Ana Lilia Graves CRNP [address] [place] [address] 07/07/2023 3:40 PM EDT Office Visit General Internal Medicine [facility] [address] [facility] [place] [address] Nora Espinosa MD [address] [facility] [place] [address] Scheduled Orders Name Type Priority Associated Diagnoses Orde r Schedule POINT OF CARE US MAJOR JOINT INJECTION, ORTHO Medical Imaging Routine Rotator cuff arthropathy of right shoulder Ordered: 04/29/2023 Scheduled Procedures Name Priority Associated Diagnoses Date/Ti me ESOPHAGOGASTRODUODENOSCOPY ( EGD), FLEXIBLE, TRANSORAL, DIAGNOSTIC Recall Adenomatous duodenal polyp COLONOSCOPY FLEXIBLE PROXIMAL DIAGNOSTIC Recall History of colon polyps Health Maintenance Due Date Last Done Comments Alpha-1 Antitrypsin 1972 Cologuard 07/20/1999 Fecal Occult Blood Test 07/20/1999 Sigmoidoscopy 07/20/1999 Zoster Vaccines (1 of 2) 2004 DTaP,Tdap,and Td Vaccines (2 - Td or Tdap) 06/17/2018 06/17/2008 Pneumococcal Vaccine: 65+ Years (2 of 2 - PCV) 01/08/2020 01/07/2019 *COPD SEVERITY VERIFIED BY PFT 10/10/2021 COVID-19 Vaccine (4 - 2023-24 season) 2022 03/09/2021, 07/08/2020, 06/10/2020 Influenza Vaccine (FLU shot) (#1) 2022 01/14/2021, 11/22/2019 Depression Screening 11/12/2023 11/11/2022 O2 ASSESSMENT COMPLETED IN PAST YEAR FOR COPD 03/31/2024 03/31/2023 GFR 04/11/2024 04/11/2023, 03/08, 07/06/2022, Additional history exists Albumin/Creatinine Ratio 11/11/2025 11/11/2022, 09/05 Colonoscopy 01/14/2030 01/15/2020, 01/15/2020 Colorectal Cancer Screening 01/14/2030 LUNG CANCER SCREENING - USE SMARTSET [id number] Completed 05/05/2021 AAA Screening Completed 05/20/2021 GARDASIL-HPV IMMUNIZATION SERIES Aged Out No longer eligible based on patient's age to complete this topic Hepatitis B Aged Out No longer eligi ble based on patient's age to complete this topic MENINGOCOCCAL (MENACTRA/MENVEO) Aged Out No longer eligible based on patient's age to complete this topic documented as of this encounter Medical Devices Implanted Type Area C.O.D. Clerk Device Identifier Shelf Expiration Date Model / Serial / Lot Clip Quick 2.8mm 230cm - [id number] Implanted:Qty: 1 on 05/01/2020 by Augustin Bearden MD at [facility] [employer] 06/04/2022 HX-202UR.A / / 04K Clip Quick 2.8mm 230cm - [id number] Implanted:Qty: 1 on 05/01/2020 by Augustin Bearden MD at [facility] [employer] 06/04/2022 HX-202UR.A / / 04K Clip Quick 2.8mm 230cm - [id number] Implanted:Qty: 1 on 05/01/2020 by Augustin Bearden MD at [facility] [employer] 06/04/2022 HX-202UR.A / / 04K Clip Quick 2.8mm 230cm - [id number] Implanted:Qty: 1 on 05/01/2020 by Augustin Bearden MD at [facility] [employer] 06/04/2022 HX-202UR.A / / 04K Clip Quick 2.8mm 230cm - [id number] Implanted:Qty: 1 on 05/01/2020 by Augustin Bearden MD at [facility] [employer] 06/04/2022 HX-202UR.A / / 04K Clip Quick 2.8mm 230cm - [id number] Implanted:Qty: 1 on 05/01/2020 by Augustin Bearden MD at [facility] [employer] 06/04/2022 HX-202UR.A / / 04K Clip Quick 2.8mm 230cm - [id number] Implanted:Qty: 1 on 05/01/2020 by Augustin Bearden MD at [facility] [employer] 06/04/2022 HX-202UR.A / / [id number] documented as of this encounter Visit Diagnoses Diagnosis Rotator cuff arthropathy of right shoulder- Primary documented in this encounter Administered Medications Inactive Administered Medications - up to 3 most recent administrations Medication Order MAR Action Action Date Dose Rate Site lidocaine 1% 1 mL - triamcinolone acetonide 40 mg/mL 1 mL inj 2 mL 2 mL, Injection, ONCE, On Tue04/29/23 at 1415, For 1 dose, Lidocaine 1% 1mL Triamcinolone Acetonide 40 mg/mL 1 mL (Final concentration = 20 mg/mL) REFRIGERATE and SHAKE WELL Given 04/29/2023 2:09 PM EST 2 mL Shoulder Right documented in this encounter Advance Directives Latest Code Status on File Code Status Date Activated Date Inactivated Comments Full Code 10/07/2021 11:45 AM 10/09/2021 8:34 PM This o rder reflects the patients wishes and were consensually agreed upon. Question Answer Comments Discussion of Advance Directives occurred with: Not Discussed Code Status History Code Status Date Activated Date Inactivated Comments Full Code 10/07/2021 7:02 AM 10/07/2021 11:45 AM This o rder reflects the patients wishes and were consensually agreed upon. Care Teams Experimental Mechanic Spacecraft Relationship Specialty Start Date End Date Nora Espinosa MD [address] [place] [address], [place] [address] PCP - General Internal Medicine 04/04/23 documented as of this encounter
--- OUTSIDE RECORDS SUMMARY | 2023-05-08 05:37 | External Medical Summary | Summary of Care ---
Author Name Unknown Organization [facility] Address [address] [place] [address] Phone [phone] Care Team Providers Care Sample Body Builder Name Role Phone Nora Espinosa MD Primary Care Provider [phone] Encounter Details Date Type Department Care Team (Late st Contact Info) Description 05/03/2023 Patient Reported Data Patient Survey Ortho OBERD Allergies No known active allergiesdocumented as of this encounter (statuses as of 05/03/2023) Medications Medication Sig Dispensed Refills Start Date [...] MG Oral Capsule (Colace)Indications: Narcotic bowel syndrome (HCC) Take 1 Capsule by mouth in the morning and 1 Capsule before bedtime. 180 Capsule 1 10/29/2022 Active Lisinopril 10 MG Oral Tablet (Prinivil)Indication s:Benign hypertension with CKD (chronic kidney disease) stage III ([facility]),Microalbuminur ia Take 1 Tablet by mouth in the morning. 90 Tablet 3 11/27/2022 Active Folic Acid 1 MG Oral TabletIndications:Pr otein-calorie malnutrition, unspecified severity ([facility]) TAKE 1 TABLET BY MOUTH EVERY DAY 90 Tablet 1 12/24/2022 Active Atorvastatin Calcium 20 MG Oral Tablet (Lipitor)Indications :Dyslipidemia TAKE 1 TABLET BY MOUTH EVERY DAY 90 Tablet 0 03/21/2023 Active NATURAL SUPPLEMENT Take by mouth daily. Metanx for neuropathy in feet 0 Active Tiotropium [place] Monohydrate 18 MCG Inhalation Capsule (Spiriva HandiHaler)Indicatio ns:COPD, group A, by GOLD 2017 classification ([facility]) Inhale 1 Capsule by mouth in the [...] MG Oral Tablet (Deltasone)Indicatio ns:PMR (polymyalgia rheumatica) ([facility]) Take 1 Tablet by mouth in the morning. Take with food.. 30 Tablet 0 04/13/2023 Active Potassium Chloride Constance ER 10 MEQ Oral Tablet Extended ReleaseIndications:H ypokalemia Take 1 Tablet by mouth in the morning. 30 Tablet 5 04/13/2023 Active DuoDERM CGF Dressing ExternalIndications: Pressure injury of right hip, stage 3 ([facility]) Apply in ulcer and change every 2 days . 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 120 Tablet 0 04/25/2023 Active documented as of this encounter (statuses as of 05/03/2023) Active Problems Problem Noted Date Diagnosed Date COPD, group A, by GOLD 2017 classification 11/15 Overview: Per COPD GOLD Classification Protein-calorie malnutrition 11/11/2022 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 Cervical myelopathy 10/09/2021 Coronary artery disease invo lving [place] coronary artery without angina pectoris 10/08/2021 DAVF [...] as of this encounter (statuses as of 05/03/2023) Resolved Problems Problem Noted Date Diagnosed Date [...] as of this encounter (statuses as of 05/03/2023) Immunizations Name Administration Dates Next Due COVID-19 [...] (15 years old or older) Yes 10/08/19 Cognitive Status Response Date of Assessm ent Because of a physical, menta l, or emotional condition, do you have serious difficulty concentrating, remembering, or making decisions? (5 years old or older) No 10/07/2021 documented as of this encounter Plan of Treatment Upcoming Encounters Date Type Department Care Team (Late st Contact Info) Description 06/06/2023 3:15 PM EDT Telemedicine Orthopaedics [facility] [address] [place] [address] Farrukh Toure MD [address] [place] [address] 06/14/2023 3:00 PM EDT Office Visit Cardiology, [facility] [address] [place] [address] Ana Lilia Graves CRNP [address] [place] [address] 07/07/2023 3:40 PM EDT Office Visit General Internal Medicine [facility] [address] [facility] [place] [address] Nora [facility]spinosa [facility] [address] Scheduled Procedures Name Priority Associated Diagnoses Date/Ti [...] SEVERITY VERIFIED BY PFT 10/10/2021 COVID-19 Vaccine ( season) 2022 03/09/2021, 07/08/2020, 06/10/2020 Influenza Vaccine (FLU shot) (#1) 2022 01/14/2021, 11/22/2019 Depression Screening 11/12/2023 11/11/2022 O2 ASSESSMENT COMPLETED IN PAST YEAR FOR COPD 03/31/2024 03/31/2023 GFR 04/11/2024 04/11/2023, 03/08, 07/06/2022, Additional history exists Albumin/Creatinine Ratio 11/11/2025 11/11/2022, 09/05 Colonoscopy 01/14/2030 01/15/2020, 01/15/2020 Colorectal Cancer Screening 01/14/2030 LUNG CANCER SCREENING - USE SMARTSET 95228 Completed 05/05/2021 AAA Screening Completed 05/20/2021 GARDASIL-HPV IMMUNIZATION SERIES Aged Out No longer eligible based on patient's age to complete this topic Hepatitis B Aged Out No longer eligi ble based on patient's age to complete this topic MENINGOCOCCAL (MENACTRA/MENVEO) Aged Out No longer eligible based on patient's age to complete this topic documented as of this encounter Medical Devices Implanted Type Area Shipping Track Supervisor Device Identifier Shelf Expiration Date Model / Serial / Lot Clip Quick 2.8mm 230cm - [id number] Implanted:Qty: 1 on 05/01/2020 by Augustin Bearden MD at ENDOSCOPY [facility] [email or web address]ES [facility] 06/04/2022 HX-202UR.A / / 04K Clip Quick 2.8mm 230cm - [id number] Implanted:Qty: 1 on 05/01/2020 by Augustin Bearden MD at ENDOSCOPY [facility] [employer] [facility] 06/04/2022 HX-202UR.A / / 04K Clip Quick 2.8mm 230cm - [id number] Implanted:Qty: 1 on 05/01/2020 by Augustin Bearden MD at ENDOSCOPY [facility] [email or web address] INES [facility] 06/04/2022 HX-202UR.A / / 04K Clip Quick 2.8mm 230cm - [id number] Implanted:Qty: 1 on 05/01/2020 by Augustin Bearden MD at ENDOSCOPY [facility] [email or web address] INES [facility] 06/04/2022 HX-202UR.A / / 04K Clip Quick 2.8mm 230cm - [id number] Implanted:Qty: 1 on 05/01/2020 by Augustin Bearden MD at ENDOSCOPY [facility] [employer] 06/04/2022 HX-202UR.A / / 04K Clip Quick 2.8mm 230cm - [id number] Implanted:Qty: 1 on 05/01/2020 by Augustin Bearden MD at [facility]COPY [facility] [employer] 06/04/2022 HX-202UR.A / / 04K Clip Quick 2.8mm 230cm - [id number] Implanted:Qty: 1 on 05/01/2020 by Augustin Bearden MD at ENDOSCOPY [facility] [employer] 06/04/2022 HX-202UR.A / / [id number] documented as of this encounter Advance Directives Latest Code Status [...] and were consensually agreed upon. Care Teams Sample Body Builder Relationship Specialty Start Date End Date Nora Espinosa MD [address] [facility] [place], [place] [address] PCP - General Internal Medicine 04/04/23 documented as of this encounter
--- OUTSIDE RECORDS SUMMARY | 2023-05-08 05:38 | External Medical Summary ---
Author Name Unknown Address Unknown Organization K01:[facility] [place] [facility] [address] [place] [address] Laboratory Report Ordering Provider Test Date Status CODY TIPTON 04/11/2023 13:44:02 Final Observation Date Value Abnormality Reference (Units ) Status Erythrocyte sedimentation rate by Photometric method 04/11/2023 13:44:02 66 Above high normal <20 (mm/hour) Final Performing Location [facility] [place] - [address] [place] [address]
--- OUTSIDE RECORDS SUMMARY | 2023-05-08 05:38 | External Medical Summary | Summary of Care ---
Author Name Unknown Organization [facility] Address [address] [place] [address] Phone [phone] Care Team Providers Care Manager Operating Name Role Phone Nora Espinosa MD Primary Care Provider Encounter Details Date Type Department Care Team (Late st Contact Info) Description 04/26/2023 Patient Reported Data Patient Survey Ortho OBERD Allergies No known active allergiesdocumented as of this encounter (statuses as of 04/26/2023) Medications Medication Sig Dispensed Refills Start Date [...] with CKD (chronic kidney disease) stage III ([facility]),Microalbuminur ia Take 1 Tablet by mouth in the morning. 90 Tablet 3 11/27/2022 Active Folic Acid 1 MG Oral TabletIndications:Pr otein-calorie malnutrition, unspecified severity ([facility]) TAKE 1 TABLET BY MOUTH EVERY DAY 90 Tablet 1 12/24/2022 Active Atorvastatin Calcium 20 MG Oral Tablet (Lipitor)Indications :Dyslipidemia TAKE 1 TABLET BY MOUTH EVERY DAY 90 Tablet 0 03/21/2023 Active NATURAL SUPPLEMENT Take by mouth daily. Metanx for neuropathy in feet 0 Active Tiotropium [place] Monohydrate 18 MCG Inhalation Capsule (Spiriva HandiHaler)Indicatio ns:COPD, group A, by GOLD 2017 classification ([facility]) Inhale 1 Capsule by mouth in the [...] MG Oral Tablet (Deltasone)Indicatio ns:PMR (polymyalgia rheumatica) ([facility]) Take 1 Tablet by mouth in the morning. Take with food.. 30 Tablet 0 04/13/2023 Active Potassium Chloride Constance ER 10 MEQ Oral Tablet Extended ReleaseIndications:H ypokalemia Take 1 Tablet by mouth in the morning. 30 Tablet 5 04/13/2023 Active DuoDERM CGF Dressing ExternalIndications: Pressure injury of right hip, stage 3 ([facility]) Apply in ulcer and change every 2 days . 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 10/08/2021 DAVF [...] as of this encounter (statuses as of 04/26/2023) Resolved Problems Problem Noted Date Diagnosed Date [...] as of this encounter (statuses as of 04/26/2023) Immunizations Name Administration Dates Next Due COVID-19 [...] 04/29/2023 1:30 PM EST Office Visit Orthopaedics [facility] [address] [place] [address] Farrukh Toure MD [address] [place] [address] 06/14/2023 3:00 PM EDT Office Visit Cardiology, [facility] [address] [place] [address] Ana Lilia Graves CRNP [address] [place] [address] 07/07/2023 3:40 PM EDT Office Visit General Internal Medicine [facility] [address] [facility] [place] [address] Nora [facility]spinosa MD [facility] [address] Scheduled Procedures Name Priority Associated Diagnoses Date/Ti [...] 01/14/2030 LUNG CANCER SCREENING - USE SMARTSET 20604 Completed 05/05/2021 AAA Screening Completed 05/20/2021 GARDASIL-HPV IMMUNIZATION SERIES Aged Out No longer eligible based on patient's age to complete this topic Hepatitis B Aged Out No longer eligi ble based on patient's age to complete this topic MENINGOCOCCAL (MENACTRA/MENVEO) Aged Out No longer eligible based on patient's age to complete this topic documented as of this encounter Medical Devices Implanted Type Area Back Wedger Device Identifier Shelf Expiration Date Model / Serial / Lot Clip Quick 2.8mm 230cm - [id number] Implanted:Qty: 1 on 05/01/2020 by Augustin Bearden MD at [facility] [employer] INES [facility] 06/04/2022 HX-202UR.A / / 04K Clip Quick 2.8mm 230cm - [id number] Implanted:Qty: 1 on 05/01/2020 by Augustin Bearden MD at [facility] [employer] [facility] 06/04/2022 HX-202UR.A / / 04K Clip Quick 2.8mm 230cm - [id number] Implanted:Qty: 1 on 05/01/2020 by Augustin Bearden MD at [facility] [employer] [facility] 06/04/2022 HX-202UR.A / / 04K Clip Quick 2.8mm 230cm - [id number] Implanted:Qty: 1 on 05/01/2020 by Augustin Bearden MD at [facility]COPY [facility] [employer] [facility] 06/04/2022 HX-202UR.A / / 04K Clip Quick 2.8mm 230cm - [id number] Implanted:Qty: 1 on 05/01/2020 by Augustin Bearden MD at ENDOSCOPY [facility] [employer] 06/04/2022 HX-202UR.A / / 04K Clip Quick 2.8mm 230cm - [id number] Implanted:Qty: 1 on 05/01/2020 by Augustin Bearden MD at ENDOSCOPY [facility] [employer] 06/04/2022 HX-202UR.A / / 04K Clip Quick 2.8mm 230cm - [id number] Implanted:Qty: 1 on 05/01/2020 by Augustin Bearden [...] and were consensually agreed upon. Care Teams Manager Operating Relationship Specialty Start Date End Date Nora Espinosa MD [address] [facility] [place], [place] [address] PCP - General Internal Medicine 04/04/23 documented as of this encounter
--- OUTSIDE RECORDS SUMMARY | 2023-05-08 05:38 | External Medical Summary | Summary of Care ---
Author Name Unknown Organization [facility] Address [address] [place] [address] Phone [phone] Care Team Providers Care Superintendent Renting Managing Name Role Phone Nora Espinosa MD Primary Care Provider [phone] Reason for Visit * Reason Comments Follow Up Right shoulder Encounter Details Date Type Department Care Team (Late st Contact Info) Description 04/29/2023 1:30 PM EST Office Visit Orthopaedics [facility] [address] [place] [address] Farrukh Toure MD [address] [place] [address] Rotator cuff arthropathy of right shoulder* Allergies [...] MG Oral Capsule (Colace)Indications: Narcotic bowel syndrome ([facility]) Take 1 Capsule by mouth in the morning and 1 Capsule before bedtime. 180 Capsule 1 10/29/2022 Active Lisinopril 10 MG Oral Tablet (Prinivil)Indication s:Benign hypertension with CKD (chronic kidney disease) stage III ([facility]),Microalbuminur ia Take 1 Tablet by mouth in the morning. 90 Tablet 3 11/27/2022 Active Folic Acid 1 MG Oral TabletIndications:Pr otein-calorie malnutrition, unspecified severity ([facility]) TAKE 1 TABLET BY MOUTH EVERY DAY 90 Tablet 1 12/24/2022 Active Atorvastatin Calcium 20 MG Oral Tablet (Lipitor)Indications :Dyslipidemia TAKE 1 TABLET BY MOUTH EVERY DAY 90 Tablet 0 03/21/2023 Active NATURAL SUPPLEMENT Take by mouth daily. Metanx for neuropathy in feet 0 Active Tiotropium [place] Monohydrate 18 MCG Inhalation Capsule (Spiriva HandiHaler)Indicatio ns:COPD, group A, by GOLD 2017 classification ([facility]) Inhale 1 Capsule by mouth in the [...] MG Oral Tablet (Deltasone)Indicatio ns:PMR (polymyalgia rheumatica) ([facility]) Take 1 Tablet by mouth in the morning. Take with food.. 30 Tablet 0 04/13/2023 Active Potassium Chloride Constance ER 10 MEQ Oral Tablet Extended ReleaseIndications:H ypokalemia Take 1 Tablet by mouth in the morning. 30 Tablet 5 04/13/2023 Active DuoDERM CGF Dressing ExternalIndications: Pressure injury of right hip, stage 3 ([facility]) Apply in ulcer and change every 2 days . 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 Harjit Yuna (orthopedic surgery, sports medicine). 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 Previously injected 10/09/23, lasted 'a couple weeks' documented in this encounter Plan of Treatment Upcoming Encounters Date Type Department Care Team (Late st Contact Info) Description 06/06/2023 3:15 PM EDT Telemedicine Orthopaedics [facility] [address] [place] [address] Farrukh Toure MD [address] [place] [address] 06/14/2023 3:00 PM EDT Office Visit Cardiology, [facility] [address] [place] [address] Ana Lilia Graves CRNP [address] [place] [address] 07/07/2023 3:40 PM EDT Office Visit General Internal Medicine [facility] [address] [facility] [place] [address] Nora Espinosa MD [address] [facility] [place] [address] Scheduled Orders Name Type Priority Associated Diagnoses [...] 01/14/2030 LUNG CANCER SCREENING - USE SMARTSET [id number] Completed 05/05/2021 AAA Screening Completed 05/20/2021 GARDASIL-HPV IMMUNIZATION SERIES Aged Out No longer eligible based on patient's age to complete this topic Hepatitis B Aged Out No longer eligi ble based on patient's age to complete this topic MENINGOCOCCAL (MENACTRA/MENVEO) Aged Out No longer eligible based on patient's age to complete this topic documented as of this encounter Medical Devices Implanted Type Area Egg Candler Device Identifier Shelf Expiration Date Model / Serial / Lot Clip Quick 2.8mm 230cm - [id number] Implanted:Qty: 1 on 05/01/2020 by Augustin Bearden MD at ENDOSCOPY [facility] [employer] 06/04/2022 HX-202UR.A / / 04K Clip Quick 2.8mm 230cm - [id number] Implanted:Qty: 1 on 05/01/2020 by Augustin Bearden MD at ENDOSCOPY [facility] [employer] 06/04/2022 HX-202UR.A / / 04K Clip Quick 2.8mm 230cm - [id number] Implanted:Qty: 1 on 05/01/2020 by Augustin Bearden MD at ENDOSCOPY [facility] [employer] 06/04/2022 HX-202UR.A / / 04K Clip Quick 2.8mm 230cm - [id number] Implanted:Qty: 1 on 05/01/2020 by Augustin Bearden MD at ENDOSCOPY [facility] [employer] 06/04/2022 HX-202UR.A / / 04K Clip Quick 2.8mm 230cm - [id number] Implanted:Qty: 1 on 05/01/2020 by Augustin Bearden MD at ENDOSCOPY [facility] [employer] 06/04/2022 HX-202UR.A / / 04K Clip Quick 2.8mm 230cm - [id number] Implanted:Qty: 1 on 05/01/2020 by Augustin Bearden MD at ENDOSCOPY [facility] [employer] 06/04/2022 HX-202UR.A / / 04K Clip Quick 2.8mm 230cm - [id number] Implanted:Qty: 1 on 05/01/2020 by Augustin Bearden MD at ENDOSCOPY [facility] [employer] 06/04/2022 HX-202UR.A / / [...] and were consensually agreed upon. Care Teams Superintendent Renting Managing Relationship Specialty Start Date End Date Nora Espinosa MD [address] [place] [address], [place] [address] PCP - General Internal Medicine 04/04/23 documented as of this encounter
--- OUTSIDE RECORDS SUMMARY | 2023-05-08 05:38 | External Medical Summary | Summary of Care ---
Author Name Unknown Organization [facility] Address [address] [place] [address] Phone [phone] Care Team Providers Care Market Survey Representative Name Role Phone Nora Espinosa MD Primary Care Provider [phone] Reason for Referral * Precert (Within 10 days (routine)) - Pending Review Specialty Diagnoses / Procedures Referred By Contac t Referred To Contact Radiology Diagnoses History of tobacco abuse Procedures CT CHEST LOW DOSE SCAN LUNG CANCER SCREEN 1 YEAR FOLLOW UP Nora Espinosa MD [address] [place] [address] Referral ID Status Reason Start Date Expiration Date V isits Requested Visits Authorized [id number] Pending Review 04/21/2023 [id number] Encounter Details Date Type Department Care Team (Late st Contact Info) Description 04/14/2023 Orders Only Thoracic Surg [facility] [address] [place], [place] [id number] Jessica Benedict, RN History of tobacco abuse* Allergies No known active allergiesdocumented as of this encounter (statuses as of 04/14/2023) Medications Medication Sig Dispensed Refills Start Date [...] (chronic kidney disease) stage III ([facility]),Microalbuminur ia Take 1 Tablet by mouth in the morning. 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 120 Tablet 0 03/10/2023 Active Atorvastatin Calcium 20 MG Oral Tablet (Lipitor)Indications :Dyslipidemia TAKE 1 TABLET BY MOUTH EVERY DAY 90 Tablet 0 03/21/2023 Active NATURAL SUPPLEMENT Take by mouth daily. Metanx for neuropathy in feet 0 Active Tiotropium [place] Monohydrate 18 MCG Inhalation Capsule (Spiriva HandiHaler)Indicatio ns:COPD, group A, by GOLD 2017 classification ([facility]) Inhale 1 Capsule by mouth in the [...] Tablet (Deltasone)Indicatio ns:PMR (polymyalgia rheumatica) ([facility]) Take 1 Tablet by mouth in the morning. Take with food.. 30 Tablet 0 04/13/2023 Active Potassium Chloride Constance ER 10 MEQ Oral Tablet Extended ReleaseIndications:H ypokalemia Take 1 Tablet by mouth in the morning. 30 Tablet 5 04/13/2023 Active DuoDERM CGF Dressing ExternalIndications: Pressure injury of right hip, stage 3 ([facility]) Apply in ulcer and change every 2 days . 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 10/08/2021 DAVF [...] as of this encounter (statuses as of 04/14/2023) Resolved Problems Problem Noted Date Diagnosed Date [...] as of this encounter (statuses as of 04/14/2023) Immunizations Name Administration Dates Next Due COVID-19 [...] Date Smoking Tobacco: Former Cigarettes 1 35 Q uit: 08/05/2022 Smokeless Tobacco: Never Comments:quit august 05 [...] Care Team (Late st Contact Info) Description 06/14/2023 3:00 PM EDT Office Visit Cardiology, [facility] [address] [place] [address] Ana Lilia Graves CRNP [address] [place] [address] 07/07/2023 3:40 PM EDT Office Visit General Internal Medicine [facility] [address] [place] [address] Nora Espinosa MD [address] [facility] [place] [address] Scheduled Orders Name Type Priority Associated Diagnoses Orde r Schedule CT CHEST LOW DOSE SCAN LUNG CANCER SCREEN 1 YEAR FOLLOW UP Medical Imaging Routine History of tobacco abuse Expected: 04/21/2023, Expires: 04/14/2025 Scheduled Procedures Name Priority Associated Diagnoses Date/Ti [...] 06/17/2018 06/17/2008 Pneumococcal Vaccine: 65+ Years (2 - PCV) 01/08/2020 01/07/2019 *COPD SEVERITY VERIFIED BY PFT 10/10/2021 COVID-19 Vaccine ( - 2022- season) 2022 03/09/2021, 07/08/2020, 06/10/2020 Influenza Vaccine (FLU shot) (#1) 2022 01/14/2021, 11/22/2019 Depression Screening 11/12/2023 11/11/2022 O2 ASSESSMENT COMPLETED IN PAST YEAR FOR COPD 03/31/2024 03/31/2023 GFR 04/11/2024 04/11/2023, 03/08, 07/06/2022, Additional history exists Albumin/Creatinine Ratio 11/11/2025 11/11/2022, 09/05 Colonoscopy 01/14/2030 01/15/2020, 01/15/2020 Colorectal Cancer Screening 01/14/2030 LUNG CANCER SCREENING - USE SMARTSET 55299 Completed 05/05/2021 AAA Screening Completed 05/20/2021 GARDASIL-HPV IMMUNIZATION SERIES Aged Out No longer eligible based on patient's age to complete this topic Hepatitis B Aged Out No longer eligi ble based on patient's age to complete this topic MENINGOCOCCAL (MENACTRA/MENVEO) Aged Out No longer eligible based on patient's age to complete this topic documented as of this encounter Medical Devices Implanted Type Area Retail Business Manager Device Identifier Shelf Expiration Date Model / Serial / Lot Clip Quick 2.8mm 230cm - [id number] Implanted:Qty: 1 on 05/01/2020 by Augustin Bearden MD at ENDOSCOPY [employer] [facility] 06/04/2022 HX-202UR.A / / [id number] documented as of this encounter Visit Diagnoses Diagnosis History of tobacco abuse- Primary Personal history of tobacco use, presenting hazards to health documented in this encounter Advance Directives Latest [...] and were consensually agreed upon. Care Teams Market Survey Representative Relationship Specialty Start Date End Date Nora Espinosa MD [address] [facility] [place] [address] PCP - General Internal Medicine 04/04/23 documented as of this encounter
--- OUTSIDE RECORDS SUMMARY | 2023-05-08 05:38 | External Medical Summary | Summary of Care ---
Author Name Unknown Organization [facility] Address [address] [place] [address] Phone [phone] Care Team Providers Care Otm Consultant Name Role Phone Nora Espinosa MD Primary Care Provider [phone] Reason for Visit * Reason Comments Outpatient Testing Encounter Details Date Type Department Care Team (Late st Contact Info) Description 04/11/2023 2:00 PM EST Laboratory Laboratory, [facility] [address] [place] [address] [facility] [address] [place] [address] Hypokalemia; Elevated sed rate; Myalgia; Muscle weakness (generalized); Stage 3b chronic kidney disease (HCC) Allergies No known active allergiesdocumented as of this encounter (statuses as of 04/11/2023) Medications Medication Sig Dispensed Refills Start Date [...] with CKD (chronic kidney disease) stage III (HCC),Microalbuminur ia Take 1 Tablet by mouth in the morning. 90 Tablet 3 11/27/2022 Active Folic Acid 1 MG Oral TabletIndications:Pr otein-calorie malnutrition, unspecified severity (HCC) TAKE 1 TABLET BY MOUTH EVERY DAY 90 Tablet 1 12/24/2022 Active oxyCODONE HCl 5 MG Oral Tablet (Oxy IR)Indications:Cervi angela myelopathy (HCC),Lumbar degenerative disc disease,Osteoarthrit is of spine with radiculopathy, cervical region Take 1 Tablet by mouth every 6 hours as needed for Pain, Severe. 120 Tablet 0 03/10/2023 Active Atorvastatin Calcium 20 MG Oral Tablet (Lipitor)Indications :Dyslipidemia TAKE 1 TABLET BY MOUTH EVERY DAY 90 Tablet 0 03/21/2023 Active NATURAL SUPPLEMENT Take by mouth daily. Metanx for neuropathy in feet 0 Active Tiotropium [place] Monohydrate 18 MCG Inhalation Capsule (Spiriva HandiHaler)Indicatio ns:COPD, group A, by GOLD 2017 classification ([facility]) Inhale 1 Capsule by mouth in the morning. For inhaler only, do not swallow.. 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 Cervical myelopathy 10/09/2021 Coronary artery disease invo lving [place] coronary artery without angina pectoris 10/08/2021 DAVF [...] as of this encounter (statuses as of 04/11/2023) Resolved Problems Problem Noted Date Diagnosed Date [...] as of this encounter (statuses as of 04/11/2023) Immunizations Name Administration Dates Next Due COVID-19 [...] Date Smoking Tobacco: Former Cigarettes 1 35 Smokeless Tobacco: Never Comments:quit august 05 Alcohol [...] 06/14/2023 3:00 PM EDT Office Visit Cardiology, [facility] [address] [facility] [place] [address] Ana Lilia Graves CRNP [address] [place] [address] 07/07/2023 3:40 PM EDT Office Visit General Internal Medicine [facility] [place] [address] [facility] [place] [address] Nora Espinosa MD [address] [facility] [place] [address] Pending Results Name Type Priority Associated Diagnoses Date /Time BASIC METABOLIC PANEL Lab Routine Hypokalemia 04/11/2023 1:44 PM EST MAGNESIUM Lab Routine Hypokalemia 04/11/2023 1:44 PM EST ERYTHROCYTE SEDIMENTATION RATE (ESR) Lab Routine Elevated sed rate 04/11/2023 1:44 PM EST ANTINUCLEAR ANTIBODY (MISA) EIA SCREEN WITH REFLEX AB QUANT Lab Routine Elevated sed rate 04/11/2023 1:44 PM EST ANCA REFLEX PANEL Lab Routine Elevated sed rate 04/11/2023 1:44 PM EST LYME DISEASE ANTIBODY SCREEN WITH REFLEX TO CONFIRMATION Lab Routine Myalgia Muscle weakness (generalized) Elevated sed rate 04/11/2023 1:44 PM EST CULTURE, BLOOD Lab Routine Elevated sed rate 04/11/2023 1:44 PM EST ANTINUCLEAR ANTIBODY (MISA) SCREEN, CHRISTIANO Lab Routine Elevated sed rate 04/11/2023 1:44 PM EST ANCA, IFA Lab Routine Elevated sed rate 04/11/2023 1:44 PM EST LYME DISEASE ANTIBODY SCREEN Lab Routine Myalgia Muscle weakness (generalized) Elevated sed rate 04/11/2023 1:44 PM EST PROTEIN/ CREATININE RATIO, URINE Lab Routine Stage 3b chronic kidney disease (HCC) 04/11/2023 1:44 PM EST Scheduled Procedures Name Priority Associated Diagnoses Date/Ti [...] BY PFT 10/10/2021 COVID-19 Vaccine (4 - season) 2022 03/09/2021, 07/08/2020, 06/10/2020 Influenza Vaccine (FLU shot) (#1) 2022 01/14/2021, 11/22/2019 Depression Screening 11/12/2023 11/11/2022 O2 ASSESSMENT COMPLETED IN PAST YEAR FOR COPD 03/31/2024 03/31/2023 GFR 04/02/2024 04/02/2023, /04/2022, 10/31/2021, Additional history exists Albumin/Creatinine Ratio 11/11/2025 11/11/2022, 09/05 Colonoscopy 01/14/2030 01/15/2020, 01/15/2020 Colorectal Cancer Screening 01/14/2030 AAA Screening Completed 05/20/2021 GARDASIL-HPV IMMUNIZATION SERIES Aged Out No longer eligible based on patient's age to complete this topic Hepatitis B Aged Out No longer eligi ble based on patient's age to complete this topic MENINGOCOCCAL (MENACTRA/MENVEO) Aged Out No longer eligible based on patient's age to complete this topic documented as of this encounter Medical Devices Implanted Type Area Lagging Machine Operator Device Identifier Shelf Expiration Date Model / Serial / Lot Clip Quick 2.8mm 230cm - [id number] Implanted:Qty: 1 on 05/01/2020 by Augustin Bearden MD at ENDOSCOPY [facility] [employer] 06/04/2022 HX-202UR.A / / [id number] documented as of this encounter Visit Diagnoses Diagnosis Hypokalemia Hypopotassemia Elevated sed rate Elevated sedimentation rate Myalgia Mylagia and myositis, unspecified Muscle weakness (generalized) Stage 3b chronic kidney disease (HCC) documented in this encounter Advance Directives Latest [...] and were consensually agreed upon. Care Teams Otm Consultant Relationship Specialty Start Date End Date Nora Espinosa MD [address] [place] [address] PCP - General Internal Medicine 04/04/23 documented as of this encounter
--- OUTSIDE RECORDS SUMMARY | 2023-05-08 05:38 | External Medical Summary | Summary of Care ---
Author Name Unknown Organization [facility] Address [address] [place] [address] Phone [phone] Care Team Providers Care Slasher Operator Name Role Phone Nora Espinosa MD Primary Care Provider [phone] Encounter Details Date Type Department Care Team [...] with CKD (chronic kidney disease) stage III ([facility]),Microalbuminur ia Take 1 Tablet by mouth in the morning. 90 Tablet 3 11/27/2022 Active Folic Acid 1 MG Oral TabletIndications:Pr otein-calorie malnutrition, unspecified severity ([facility]) TAKE 1 TABLET BY MOUTH EVERY DAY 90 Tablet 1 12/24/2022 Active Atorvastatin Calcium 20 MG Oral Tablet (Lipitor)Indications :Dyslipidemia TAKE 1 TABLET BY MOUTH EVERY DAY 90 Tablet 0 03/21/2023 Active NATURAL SUPPLEMENT Take by mouth daily. Metanx for neuropathy in feet 0 Active Tiotropium [place] Monohydrate 18 MCG Inhalation Capsule (Spiriva HandiHaler)Indicatio ns:COPD, group A, by GOLD 2017 classification ([facility]) Inhale 1 Capsule by mouth in [...] MG Oral Tablet (Deltasone)Indicatio ns:PMR (polymyalgia rheumatica) ([facility]) Take 1 Tablet by mouth in the morning. Take with food.. 30 Tablet 0 04/13/2023 Active Potassium Chloride Constance ER 10 MEQ Oral Tablet Extended ReleaseIndications:H ypokalemia Take 1 Tablet by mouth in the morning. 30 Tablet 5 04/13/2023 Active DuoDERM CGF Dressing ExternalIndications: Pressure injury of right hip, stage 3 ([facility]) Apply in ulcer and change every 2 days . 20 Each 3 04/13/2023 Active oxyCODONE HCl 5 MG Oral Tablet (Oxy IR)Indications:Cervi angela myelopathy ([facility]),Lumbar degenerative disc disease,Osteoarthrit is of spine [...] myelopathy 10/09/2021 Coronary artery disease invo lving [place] coronary artery without angina pectoris 10/08/2021 DAVF [...] 04/29/2023 1:30 PM EST Office Visit Orthopaedics [facility] [address] [place] [address] Farrukh Toure MD [address] [place] [address] 06/14/2023 3:00 PM EDT Office Visit Cardiology, [facility] [address] [place] [address] Ana Lilia Graves CRNP [address] [place] [address] 07/07/2023 3:40 PM EDT Office Visit General Internal Medicine [facility] [address] [facility] [place] [address] Nora [facility]osa MD [address] [facility] [address] Scheduled Procedures Name Priority Associated Diagnoses Date/Ti [...] 01/14/2030 LUNG CANCER SCREENING - USE SMARTSET 33689 Completed 05/05/2021 AAA Screening Completed 05/20/2021 GARDASIL-HPV IMMUNIZATION SERIES Aged Out No longer eligible based on patient's age to complete this topic Hepatitis B Aged Out No longer eligi ble based on patient's age to complete this topic MENINGOCOCCAL (MENACTRA/MENVEO) Aged Out No longer eligible based on patient's age to complete this topic documented as of this encounter Medical Devices Implanted Type Area Crop Setting Out Machine Operator Device Identifier Shelf Expiration Date Model / Serial / Lot Clip Quick 2.8mm 230cm - [id number] Implanted:Qty: 1 on 05/01/2020 by Augustin Bearden MD at ENDOSCOPY [facility] [employer] [facility] 06/04/2022 HX-202UR.A / / 04K Clip Quick 2.8mm 230cm - [id number] Implanted:Qty: 1 on 05/01/2020 by Augustin Bearden MD at ENDOSCOPY [facility] [employer] [facility] 06/04/2022 HX-202UR.A / / 04K Clip Quick 2.8mm 230cm - [id number] Implanted:Qty: 1 on 05/01/2020 by Augustin Bearden MD at ENDOSCOPY [facility] [employer] [facility] 06/04/2022 HX-202UR.A / / 04K Clip Quick 2.8mm 230cm - [id number] Implanted:Qty: 1 on 05/01/2020 by Augustin Bearden MD at ENDOSCOPY [facility] [employer] [facility] 06/04/2022 HX-202UR.A / / 04K Clip Quick 2.8mm 230cm - [id number] Implanted:Qty: 1 on 05/01/2020 by Augustin Bearden MD at ENDOSCOPY [facility] [employer] 06/04/2022 HX-202UR.A / / 04K Clip Quick 2.8mm 230cm - [id number] Implanted:Qty: 1 on 05/01/2020 by Augustin Bearden MD at ENDOSCOPY [facility] [employer] 06/04/2022 HX-202UR.A / / 04K Clip Quick 2.8mm 230cm - [id number] Implanted:Qty: 1 on 05/01/2020 by Augustin Bearden [...] and were consensually agreed upon. Care Teams Slasher Operator Relationship Specialty Start Date End Date Nora Espinosa MD [address] [facility] [place], [place] [address] PCP - General Internal Medicine 04/04/23 documented as of this encounter
--- OUTSIDE RECORDS SUMMARY | 2023-05-08 05:38 | External Medical Summary | Summary of Care ---
Author Name Unknown Organization [facility] Address [address] [place] [address] Phone [phone] Care Team Providers Care Nurse Practitioner Hospitalist Name Role Phone Nora Espinosa MD Primary Care Provider [phone] Reason for Referral * Medication Prior Authorization - Closed Specialty Diagnoses / Procedures Referred By Contac t Referred To Contact Diagnoses Cervical myelopathy (HCC) Lumbar degenerative disc disease Osteoarthritis of spine with radiculopathy, cervical region Nora Espinosa MD [address] [place] [address] [place] [address] Referral ID Status Reason Start Date Expiration Date Visits Re quested Visits Authorized [id number] Closed [phone] Reason for Visit * Reason Onset Date Comments Medication Refill 04/25/2023 Encounter Details Date Type Department Care Team (Late st Contact Info) Description 04/25/2023 Refill General Internal Medicine [facility] [place] [address] [place] [address] Nora Espinosa MD [address] [facility] [place] [address] Cervical myelopathy (HCC); Lumbar degenerative disc disease; Osteoarthritis of spine with radiculopathy, cervical region Allergies No known active allergiesdocumented as of this encounter (statuses as of 04/25/2023) Medications Medication Sig Dispensed Refills Start Date End Date Status Multi-Vitamins Oral Tablet Take 1 Tablet by mouth in the morning. 0 Active Aspirin 81 MG Oral Tablet Delayed ReleaseIndications: Peripheral vascular disease (HCC) Take 1 Tablet by mouth in the morning. 90 Tablet 1 10/13/2021 Active Pantoprazole Sodium 40 MG Oral Tablet Delayed Release (Protonix)Indicatio ns:Gastroesophageal reflux disease without esophagitis TAKE 1 TABLET BY MOUTH TWICE A DAY 180 Tablet 1 08/28/2022 Active CVS B-1 100 MG Oral Tablet (THIAMINE)Indicatio ns:Protein-calorie malnutrition, unspecified severity ([facility]) TAKE 1 TABLET BY MOUTH EVERY DAY 90 Tablet 3 08/28/2022 Active amLODIPine Besylate 10 MG Oral Tablet (Norvasc)Indication s:HTN, goal below 130/80 TAKE 1 TABLET BY MOUTH EVERY DAY 90 Tablet 3 09/15/2022 Active Docusate Sodium 100 MG Oral Capsule (Colace)Indications :Narcotic bowel syndrome ([facility]) Take 1 Capsule by mouth in the morning and 1 Capsule before bedtime. 180 Capsule 1 10/29/2022 Active Lisinopril 10 MG Oral Tablet (Prinivil)Indicatio ns:Benign hypertension with CKD (chronic kidney disease) stage III ([facility]),Microalbuminu fermin Take 1 Tablet by mouth in the morning. 90 Tablet 3 11/27/2022 Active Folic Acid 1 MG Oral TabletIndications:P rotein-calorie malnutrition, unspecified severity ([facility]) TAKE 1 TABLET BY MOUTH EVERY DAY 90 Tablet 1 12/24/2022 Active Atorvastatin Calcium 20 MG Oral Tablet (Lipitor)Indication s:Dyslipidemia TAKE 1 TABLET BY MOUTH EVERY DAY 90 Tablet 0 03/21/2023 Active NATURAL SUPPLEMENT Take by mouth daily. Metanx for neuropathy in feet 0 Active Tiotropium [place] Monohydrate 18 MCG Inhalation Capsule (Spiriva HandiHaler)Indicati ons:COPD, group A, by GOLD 2017 classification ([facility]) Inhale 1 Capsule by mouth in the morning. For inhaler only, do not swallow.. 30 Capsule 11 03/31/2023 Active Gabapentin 300 MG Oral Capsule (Neurontin)Indicati ons:Lumbar degenerative disc disease,Spinal stenosis of lumbar region with neurogenic claudication TAKE 1 CAPSULE BY MOUTH IN THE MORNING TAKE 2 CAPSULES AFTERNOON AND TAKE 2 CAPSULES IN THE EVENING 120 Capsule 5 04/01/2023 Active predniSONE 10 MG Oral Tablet (Deltasone)Indicati ons:PMR (polymyalgia rheumatica) ([facility]) Take 1 Tablet by mouth in the morning. Take with food.. 30 Tablet 0 04/13/2023 Active Potassium Chloride Constance ER 10 MEQ Oral Tablet Extended ReleaseIndications: Hypokalemia Take 1 Tablet by mouth in the morning. 30 Tablet 5 04/13/2023 Active DuoDERM CGF Dressing ExternalIndications :Pressure injury of right hip, stage 3 (HCC) Apply in ulcer and change every 2 days . 20 Each 3 04/13/2023 Active oxyCODONE HCl 5 MG Oral Tablet (Oxy IR)Indications:Cerv ical myelopathy (HCC),Lumbar degenerative disc disease,Osteoarthri tis of spine with radiculopathy, cervical region Take 1 Tablet by mouth every 6 hours as needed for Pain, Severe. 120 Tablet 0 04/25/2023 Active oxyCODONE HCl 5 MG Oral Tablet (Oxy IR)Indications:Cerv ical myelopathy (HCC),Lumbar degenerative disc disease,Osteoarthri tis of spine with radiculopathy, cervical region Take 1 Tablet by mouth every 6 hours as needed for Pain, Severe. 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 Cervical myelopathy 10/09/2021 Coronary artery disease invo lving [place] coronary artery without angina pectoris 10/08/2021 DAVF [...] as of this encounter (statuses as of 04/25/2023) Resolved Problems Problem Noted Date Diagnosed Date [...] as of this encounter (statuses as of 04/25/2023) Immunizations Name Administration Dates Next Due COVID-19 [...] No 10/07/2021 documented as of this encounter Miscellaneous Notes * Telephone Encounter - Nora Espinosa MD - 04/25/2023 4:56 PM ESTSigned Prescriptions: Disp Refills oxyCODONE HCl 5 MG Oral Tablet (Oxy IR) 120 Ta*0 Sig: Take 1 Tablet by mouth every 6 hours as needed for Pain, Severe. Authorizing Provider: NORA ESPINOSA * Telephone Encounter - Bhakti Velarde [facility] - 04/25/2023 4:44 PM EST Pending Prescriptions: Disp Refills oxyCODONE HCl 5 MG Oral Tablet (Oxy IR) 120 Ta*0 Sig: Take 1 Tablet by mouth every 6 hours as needed for Pain, Severe. * Telephone Encounter - Bhakti Velarde [facility] - 04/25/2023 4:44 PM EST I have reviewed the patients controlled substance dispensing history in the Prescription Drug Monitoring Program in compliance with the [facility] regulations before prescribing a controlled substance. PDMP checked on 04/25/2023. Pending Prescriptions: Disp Refills oxyCODONE HCl 5 MG Oral Tablet (Oxy IR) 120 Ta*0 Sig: Take 1 Tablet by mouth every 6 hours as needed for Pain, Severe. Last Visit: 03/31/2023 (in office), Visit date not found (telemedicine) Next Visit: 07/07/2023 Date medication was last filled: 03/10/23 Date medication is due for refill: 04/08/23 Pharmacy: [facility] [address] [place] [address] Is this request for a controlled substance? Yes and Urine Drug Screen Not completed Toxicology results: No results found for this or any previous visit. Please approve if appropriate. Thank you, Bhakti Velarde PharmD, [place] Clinical Pharmacist [facility] ([facility]) (formerly Telepharmacy) 04/25/23 4:44 PM [phone] * Telephone Encounter - Reema Rose PHARM Tech - 04/25/2023 8:29 AM EST Did you pend patient's preferred pharmacy and medication before forwarding?yes Pharmacy: [facility] [id number] Pending Prescriptions: Disp Refills oxyCODONE HCl 5 MG Oral Tablet (Oxy IR) 120 Ta*0 Sig: Take 1 Tablet by mouth every 6 hours as needed for Pain, Severe. Last Visit: 03/31/2023 (in office), Visit date not found (telemedicine) Next Visit: 07/07/2023 If no future appointments scheduled, and last appointment is greater than a year ago, please schedule patient for a follow-up appointment Last date the medication was ordered: 03/10/2023 Is this request for a controlled substance?Yes, What was the last refill date 03/10/2023 w/ quantity 120 and dosage 5mg and Urine Drug Screen Not completed Urine Drug Screen:No results found for this or any previous visit. Patient Phone Numbers Labs: Lab Results Component Value Date/Time CREAT 1.7 (H) 04/11/2023 01:44 PM CREAT 1.7 (H) 03/28/2020 03:00 PM POTASSIUM 3.2 (L) 04/11/2023 01:44 PM POTASSIUM 4.4 03/28/2020 03:00 PM TSH 2.22 04/02/2023 02:03 PM TSH 2.180 10/27/2019 12:00 AM TSH 1.31 01/09/2019 02:03 PM LDLCALC 67 04/02/2023 02:03 PM LDLCALC 77 01/09/2019 02:03 PM ALT 17 04/02/2023 02:03 PM ALT 17 01/09/2019 02:03 PM HGBA1C 5.5 04/02/2023 02:03 PM documented in this encounter Plan of Treatment Upcoming Encounters Date Type Department Care Team (Late st Contact Info) Description 04/29/2023 1:30 PM EST Office Visit Orthopaedics [facility] [address] [place] [address] Farrukh Toure MD [address] [place] [address] 06/14/2023 3:00 PM EDT Office Visit Cardiology, [facility] [address] [address] Ana Lilia Graves CRNP [address] [place] [address] 07/07/2023 3:40 PM EDT Office Visit General Internal Medicine [facility] [address] [facility] [place] [address] Nora Espinosa MD [address] [facility] [place] [address] Scheduled Procedures Name Priority Associated Diagnoses Date/Ti [...] 01/14/2030 LUNG CANCER SCREENING - USE SMARTSET 02706 Completed 05/05/2021 AAA Screening Completed 05/20/2021 GARDASIL-HPV IMMUNIZATION SERIES Aged Out No longer eligible based on patient's age to complete this topic Hepatitis B Aged Out No longer eligi ble based on patient's age to complete this topic MENINGOCOCCAL (MENACTRA/MENVEO) Aged Out No longer eligible based on patient's age to complete this topic documented as of this encounter Medical Devices Implanted Type Area Wind Turbine Engineer Device Identifier Shelf Expiration Date Model / Serial / Lot Clip Quick 2.8mm 230cm - [id number] Implanted:Qty: 1 on 05/01/2020 by Augustin Bearden MD at ENDOSCOPY [facility] [email or web address] [facility] 06/04/2022 HX-202UR.A / / 04K Clip Quick 2.8mm 230cm - [id number] Implanted:Qty: 1 on 05/01/2020 by Augustin Bearden MD at ENDOSCOPY [facility] [employer] [facility] 06/04/2022 HX-202UR.A / / 04K Clip Quick 2.8mm 230cm - [id number] Implanted:Qty: 1 on 05/01/2020 by Augustin Bearden MD at ENDOSCOPY [facility] [employer] [facility] 06/04/2022 HX-202UR.A / / 04K Clip Quick 2.8mm 230cm - [id number] Implanted:Qty: 1 on 05/01/2020 by Augustin Bearden MD at ENDOSCOPY [facility] [employer] [facility] 06/04/2022 HX-202UR.A / / 04K Clip Quick 2.8mm 230cm - [id number] Implanted:Qty: 1 on 05/01/2020 by Augustin Bearden MD at ENDOSCOPY [facility] [email or web address] [facility] 06/04/2022 HX-202UR.A / / 04K Clip Quick 2.8mm 230cm - [id number] Implanted:Qty: 1 on 05/01/2020 by Augustin Bearden MD at ENDOSCOPY [facility] [email or web address] [facility] 06/04/2022 HX-202UR.A / / 04K Clip Quick 2.8mm 230cm - [id number] Implanted:Qty: 1 on 05/01/2020 by Augustin Bearden MD at ENDOSCOPY [facility] [email or web address] [facility] 06/04/2022 HX-202UR.A / / [id number] documented as of this encounter Visit Diagnoses Diagnosis Cervical myelopathy (HCC) Cervical spondylosis with myelopathy Lumbar degenerative disc disease Degeneration of lumbar or lumbosacral intervertebral disc Osteoarthritis of spine with radiculopathy, cervical region documented in this encounter Advance Directives Latest [...] and were consensually agreed upon. Care Teams Nurse Practitioner Hospitalist Relationship Specialty Start Date End Date Nora Espinosa MD [address] [place] [address] PCP - General Internal Medicine 04/04/23 documented as of this encounter
--- OUTSIDE RECORDS SUMMARY | 2023-05-08 05:38 | External Medical Summary | Summary of Care ---
Author Name Unknown Organization [facility] Address [address] [place] [address] Phone [phone] Care Team Providers Care Vehicle Modification Technician Name Role Phone Nora Espinosa MD Primary Care Provider [phone] Reason for Visit * Reason Onset Date Comments Appointment 04/13/2023 Encounter Details Date Type Department Care Team (Late st Contact Info) Description 04/13/2023 Telephone Nephrology, [address] [address] Bello Thompson MD [address] [place] [address] Appointment Allergies No known active allergiesdocumented as of this encounter (statuses as of 04/13/2023) Medications Medication Sig Dispensed Refills Start Date [...] MG Oral Capsule (Colace)Indications: 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 180 Capsule 1 10/29/2022 Active Lisinopril 10 MG Oral Tablet (Prinivil)Indication s:Benign hypertension with CKD (chronic kidney disease) stage III ([facility]),Microalbuminur ia Take 1 Tablet by mouth in the morning. 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 120 Tablet 0 03/10/2023 Active Atorvastatin Calcium 20 MG Oral Tablet (Lipitor)Indications :Dyslipidemia TAKE 1 TABLET BY MOUTH EVERY DAY 90 Tablet 0 03/21/2023 Active NATURAL SUPPLEMENT Take by mouth daily. 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 Take with food.. 30 Tablet 0 04/13/2023 Active Potassium Chloride Constance ER 10 MEQ Oral Tablet Extended ReleaseIndications:H ypokalemia Take 1 Tablet by mouth in the morning. 30 Tablet 5 04/13/2023 Active DuoDERM CGF Dressing ExternalIndications: Pressure injury of right hip, stage 3 ([facility]) Apply in ulcer and change every 2 days . 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 coronary artery without angina pectoris 10/08/2021 DAVF [...] as of this encounter (statuses as of 04/13/2023) Resolved Problems Problem Noted Date Diagnosed Date [...] as of this encounter (statuses as of 04/13/2023) Immunizations Name Administration Dates Next Due COVID-19 [...] shopping? (15 years old or older) Yes 08/03/20 22 Cognitive Status Response Date of Assessm ent Because of a physical, menta l, or emotional condition, do you have serious difficulty concentrating, remembering, or making decisions? (5 years old or older) No 10/07/2021 documented as of this encounter Miscellaneous Notes * Telephone Encounter - Carmencita Saba OSA - 04/13/2023 1:46 PM EST 04/13/23 Called patient, left message. Trying to get patient scheduled with Nephrology for appointment. Referral is under active requests. My G message being sent out as well. documented in this encounter Plan of Treatment Upcoming Encounters Date Type Department Care Team (Late st Contact Info) Description 06/14/2023 3:00 PM EDT Office Visit Cardiology, [facility] [address] [place] [address] Ana Lilia Graves CRNP [address] [place] [address] 07/07/2023 3:40 PM EDT Office Visit General Internal Medicine [facility] [address] [facility] [place] [address] Nora Espinosa MD [address] [facility] [place] [address] Scheduled Procedures Name Priority Associated Diagnoses Date/Ti [...] this encounter Medical Devices Implanted Type Area Planning Feeder Device Identifier Shelf Expiration Date Model / Serial / Lot Clip Quick 2.8mm 230cm - [id number] Implanted:Qty: 1 on 05/01/2020 by Augustin Bearden MD at ENDOSCOPY [employer] 06/04/2022 HX-202UR.A / / [id number] documented [...] and were consensually agreed upon. Care Teams Vehicle Modification Technician Relationship Specialty Start Date End Date Nora Espinosa MD [address] [place] [address], [place] [address] PCP - General Internal Medicine 04/04/23 documented as of this encounter
--- OUTSIDE RECORDS SUMMARY | 2023-05-08 05:38 | External Medical Summary | Summary of Care ---
Author Name Unknown Organization [facility] Address [address] [place] [address] Phone [phone] Care Team Providers Care Drug Clerk Name Role Phone Nora Espinosa MD Primary Care Provider [phone] Encounter Details Date Type Department Care Team [...] with CKD (chronic kidney disease) stage III ([facility]),Microalbuminur ia Take 1 Tablet by mouth in the morning. 90 Tablet 3 11/27/2022 Active Folic Acid 1 MG Oral TabletIndications:Pr otein-calorie malnutrition, unspecified severity ([facility]) TAKE 1 TABLET BY MOUTH EVERY DAY 90 Tablet 1 12/24/2022 Active Atorvastatin Calcium 20 MG Oral Tablet (Lipitor)Indications :Dyslipidemia TAKE 1 TABLET BY MOUTH EVERY DAY 90 Tablet 0 03/21/2023 Active NATURAL SUPPLEMENT Take by mouth daily. 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 Take with food.. 30 Tablet 0 04/13/2023 Active Potassium Chloride Constance ER 10 MEQ Oral Tablet Extended ReleaseIndications:H ypokalemia Take 1 Tablet by mouth in the morning. 30 Tablet 5 04/13/2023 Active DuoDERM CGF Dressing ExternalIndications: Pressure injury of right hip, stage 3 ([facility]) Apply in ulcer and change every 2 days . 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 pectoris 10/08/2021 DAVF [...] 04/29/2023 1:30 PM EST Office Visit Orthopaedics [facility] [address] [place] [address] Farrukh Toure MD [address] [place] [address] 06/14/2023 3:00 PM EDT Office Visit Cardiology, [facility] [address] [place] [address] Ana Lilia Graves CRNP [address] [place] [address] 07/07/2023 3:40 PM EDT Office Visit General Internal Medicine [facility] [address] [facility] [place] [address] [facility] [address] Scheduled Procedures Name Priority Associated Diagnoses Date/Ti [...] 01/14/2030 LUNG CANCER SCREENING - USE SMARTSET [id number] Completed 05/05/2021 AAA Screening Completed 05/20/2021 GARDASIL-HPV IMMUNIZATION SERIES Aged Out No longer eligible based on patient's age to complete this topic Hepatitis B Aged Out No longer eligi ble based on patient's age to complete this topic MENINGOCOCCAL (MENACTRA/MENVEO) Aged Out No longer eligible based on patient's age to complete this topic documented as of this encounter Medical Devices Implanted Type Area Pumping Station Engineer Device Identifier Shelf Expiration Date Model / Serial / Lot Clip Quick 2.8mm 230cm - [id number] Implanted:Qty: 1 on 05/01/2020 by Augustin Bearden MD at ENDOSCOPY [facility] [employer] [facility] 06/04/2022 HX-202UR.A / / 04K Clip Quick 2.8mm 230cm - [id number] Implanted:Qty: 1 on 05/01/2020 by Augustin Bearden MD at ENDOSCOPY [facility] [employer] [facility] 06/04/2022 HX-202UR.A / / 04K Clip Quick 2.8mm 230cm - [id number] Implanted:Qty: 1 on 05/01/2020 by Augustin Bearden MD at ENDOSCOPY [facility] [employer] [facility] 06/04/2022 HX-202UR.A / / 04K Clip Quick 2.8mm 230cm - [id number] Implanted:Qty: 1 on 05/01/2020 by Augustin Bearden MD at ENDOSCOPY [facility] [employer] [facility] 06/04/2022 HX-202UR.A / / 04K Clip Quick 2.8mm 230cm - [id number] Implanted:Qty: 1 on 05/01/2020 by Augustin Bearden MD at ENDOSCOPY [facility] [employer] 06/04/2022 HX-202UR.A / / 04K Clip Quick 2.8mm 230cm - [id number] Implanted:Qty: 1 on 05/01/2020 by Augustin Bearden MD at ENDOSCOPY [facility] [employer] 06/04/2022 HX-202UR.A / / 04K Clip Quick 2.8mm 230cm - [id number] Implanted:Qty: 1 on 05/01/2020 by Augustin Bearden [...] and were consensually agreed upon. Care Teams Drug Clerk Relationship Specialty Start Date End Date Nora Espinosa MD [address] [facility] [place] [address] PCP - General Internal Medicine 04/04/23 documented as of this encounter
--- OUTSIDE RECORDS SUMMARY | 2023-05-08 05:38 | External Medical Summary | Summary of Care ---
Author Name Unknown Organization [facility] Address [address] [place] [address] Phone [phone] Care Team Providers Care Systems Testing Laboratory Technician Name Role Phone Nora Espinosa MD Primary Care Provider [phone] Reason for Visit * Reason Onset Date Comments Appointment 04/13/2023 Encounter Details Date Type Department Care Team (Late st Contact Info) Description 04/13/2023 Telephone Nephrology, [address] [address] Bello Thompson MD [address] [place] [address] Appointment Allergies No known active allergiesdocumented as of this encounter (statuses as of 04/18/2023) Medications Medication Sig Dispensed Refills Start Date [...] MG Oral Capsule (Colace)Indications: 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 180 Capsule 1 10/29/2022 Active Lisinopril 10 MG Oral Tablet (Prinivil)Indication s:Benign hypertension with CKD (chronic kidney disease) stage III ([facility]),Microalbuminur ia Take 1 Tablet by mouth in the morning. 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 120 Tablet 0 03/10/2023 Active Atorvastatin Calcium 20 MG Oral Tablet (Lipitor)Indications :Dyslipidemia TAKE 1 TABLET BY MOUTH EVERY DAY 90 Tablet 0 03/21/2023 Active NATURAL SUPPLEMENT Take by mouth daily. 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 Take with food.. 30 Tablet 0 04/13/2023 Active Potassium Chloride Constance ER 10 MEQ Oral Tablet Extended ReleaseIndications:H ypokalemia Take 1 Tablet by mouth in the morning. 30 Tablet 5 04/13/2023 Active DuoDERM CGF Dressing ExternalIndications: Pressure injury of right hip, stage 3 ([facility]) Apply in ulcer and change every 2 days . 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 Trying to get patient scheduled with Nephrology for appointment. Referral is under active requests. Letter and My G message being sent out as well. Patient beingremoved from list. * Telephone Encounter - Carmencita Saba OSA [...] 06/14/2023 3:00 PM EDT Office Visit Cardiology, [facility] [address] [facility] [place] [address] Ana Lilia Graves CRNP [address] [place] [address] 07/07/2023 3:40 PM EDT Office Visit General Internal Medicine [facility] [address] [place] [address] Nora Espinosa MD [address] [place] [address] Scheduled Procedures Name Priority Associated Diagnoses Date/Ti [...] 01/14/2030 LUNG CANCER SCREENING - USE SMARTSET [id number] Completed 05/05/2021 AAA Screening Completed 05/20/2021 GARDASIL-HPV IMMUNIZATION SERIES Aged Out No longer eligible based on patient's age to complete this topic Hepatitis B Aged Out No longer eligi ble based on patient's age to complete this topic MENINGOCOCCAL (MENACTRA/MENVEO) Aged Out No longer eligible based on patient's age to complete this topic documented as of this encounter Medical Devices Implanted Type Area Operations And Maintenance Specialist Device Identifier Shelf Expiration Date Model / Serial / Lot Clip Quick 2.8mm 230cm - [id number] Implanted:Qty: 1 on 05/01/2020 by Augustin Bearden MD at ENDOSCOPY [facility] [employer] 06/04/2022 HX-202UR.A / / [id number] documented as [...] and were consensually agreed upon. Care Teams Systems Testing Laboratory Technician Relationship Specialty Start Date End Date Nora Espinosa MD [address] [place] [address] PCP - General Internal Medicine 04/04/23 documented as of this encounter
--- OUTSIDE RECORDS SUMMARY | 2023-05-08 05:38 | External Medical Summary | Summary of Care ---
Author Name Unknown Organization [facility] Address [address] [place] [address] Phone [phone] Care Team Providers Care Cloth Feeder Name Role Phone Nora Espinosa MD Primary Care Provider [phone] Encounter Details Date Type Department Care Team [...] with CKD (chronic kidney disease) stage III ([facility]),Microalbuminur ia Take 1 Tablet by mouth in the morning. 90 Tablet 3 11/27/2022 Active Folic Acid 1 MG Oral TabletIndications:Pr otein-calorie malnutrition, unspecified severity ([facility]) TAKE 1 TABLET BY MOUTH EVERY DAY 90 Tablet 1 12/24/2022 Active Atorvastatin Calcium 20 MG Oral Tablet (Lipitor)Indications :Dyslipidemia TAKE 1 TABLET BY MOUTH EVERY DAY 90 Tablet 0 03/21/2023 Active NATURAL SUPPLEMENT Take by mouth daily. 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 Take with food.. 30 Tablet 0 04/13/2023 Active Potassium Chloride Constance ER 10 MEQ Oral Tablet Extended ReleaseIndications:H ypokalemia Take 1 Tablet by mouth in the morning. 30 Tablet 5 04/13/2023 Active DuoDERM CGF Dressing ExternalIndications: Pressure injury of right hip, stage 3 ([facility]) Apply in ulcer and change every 2 days . 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 pectoris 10/08/2021 DAVF [...] 04/29/2023 1:30 PM EST Office Visit Orthopaedics [facility] [address] [place] [address] Farrukh Toure MD [address] [place] [address] 06/14/2023 3:00 PM EDT Office Visit Cardiology, [facility] [address] [place] [address] Ana Lilia Graves CRNP [address] [place] [address] 07/07/2023 3:40 PM EDT Office Visit General Internal Medicine [facility] [address] [facility] [place] [address] Nora Espinosa MD [address] [facility] [address] Scheduled Procedures Name Priority Associated Diagnoses Date/Ti [...] 01/14/2030 LUNG CANCER SCREENING - USE SMARTSET 90733 Completed 05/05/2021 AAA Screening Completed 05/20/2021 GARDASIL-HPV IMMUNIZATION SERIES Aged Out No longer eligible based on patient's age to complete this topic Hepatitis B Aged Out No longer eligi ble based on patient's age to complete this topic MENINGOCOCCAL (MENACTRA/MENVEO) Aged Out No longer eligible based on patient's age to complete this topic documented as of this encounter Medical Devices Implanted Type Area Online Marketing Analyst Device Identifier Shelf Expiration Date Model / Serial / Lot Clip Quick 2.8mm 230cm - [id number] Implanted:Qty: 1 on 05/01/2020 by Augustin Bearden MD at ENDOSCOPY [facility] [employer] [facility] 06/04/2022 HX-202UR.A / / 04K Clip Quick 2.8mm 230cm - [id number] Implanted:Qty: 1 on 05/01/2020 by Augustin Bearden MD at ENDOSCOPY [facility] [employer] [facility] 06/04/2022 HX-202UR.A / / 04K Clip Quick 2.8mm 230cm - [id number] Implanted:Qty: 1 on 05/01/2020 by Augustin Bearden MD at ENDOSCOPY [facility] [employer] [facility] 06/04/2022 HX-202UR.A / / 04K Clip Quick 2.8mm 230cm - [id number] Implanted:Qty: 1 on 05/01/2020 by Augustin Bearden MD at ENDOSCOPY [facility] [employer] [facility] 06/04/2022 HX-202UR.A / / 04K Clip Quick 2.8mm 230cm - [id number] Implanted:Qty: 1 on 05/01/2020 by Augustin Bearden MD at ENDOSCOPY [facility] [employer] 06/04/2022 HX-202UR.A / / 04K Clip Quick 2.8mm 230cm - [id number] Implanted:Qty: 1 on 05/01/2020 by Augustin Bearden MD at ENDOSCOPY [facility] [employer] 06/04/2022 HX-202UR.A / / 04K Clip Quick 2.8mm 230cm - [id number] Implanted:Qty: 1 on 05/01/2020 by Augustin Bearden [...] and were consensually agreed upon. Care Teams Cloth Feeder Relationship Specialty Start Date End Date Nora Espinosa MD [address] [facility] [place], [place] [address] PCP - General Internal Medicine 04/04/23 documented as of this encounter
--- OUTSIDE RECORDS SUMMARY | 2023-05-08 05:38 | External Medical Summary | Summary of Care ---
Author Name Unknown Organization [facility] Address [address] [place] [address] Phone [phone] Care Team Providers Care Designer Architect Name Role Phone Nora Espinosa MD Primary Care Provider [phone] Reason for Visit * Reason Onset Date Comments Lung Cancer Screening Outreach 04/14/2023 Encounter Details Date Type Department Care Team (Late st Contact Info) Description 04/14/2023 Telephone Thoracic Surg [facility] [address] [place] [address] Jessica Benedict, RN Lung Cancer Screening Outreach Allergies No known active allergiesdocumented as of [...] with CKD (chronic kidney disease) stage III ([facility]),Microalbuminur ia Take 1 Tablet by mouth in the morning. 90 Tablet 3 11/27/2022 Active Folic Acid 1 MG Oral TabletIndications:Pr otein-calorie malnutrition, unspecified severity ([facility]) TAKE 1 TABLET BY MOUTH EVERY DAY 90 Tablet 1 12/24/2022 Active oxyCODONE HCl 5 MG Oral Tablet (Oxy IR)Indications:Cervi angela myelopathy ([facility]),Lumbar degenerative disc disease,Osteoarthrit is of [...] for neuropathy in feet 0 Active Tiotropium [place] Monohydrate 18 MCG Inhalation Capsule (Spiriva HandiHaler)Indicatio ns:COPD, group A, by GOLD 2017 classification ([facility]) Inhale 1 Capsule by mouth [...] MG Oral Tablet (Deltasone)Indicatio ns:PMR (polymyalgia rheumatica) ([facility]) Take 1 Tablet by mouth in the morning. Take with food.. 30 Tablet 0 04/13/2023 Active Potassium Chloride Constance ER 10 MEQ Oral Tablet Extended ReleaseIndications:H ypokalemia Take 1 Tablet by mouth in the morning. 30 Tablet 5 04/13/2023 Active DuoDERM CGF Dressing ExternalIndications: Pressure injury of right hip, stage 3 ([facility]) Apply in ulcer and change every 2 days . 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 This advanced analysis estimates the patient's risk for lung cancer. It only indicates that the patient's chances to have this condition are higher compared to most people. It does not indicate that the patient has this condition, but it is highly recommended the patient have a low dose CT screening for further evaluation. Patient previously had LDCT order, but the order has or schedulers couldn't reach pt. Re-placing order Jessica Benedict RN documented in this encounter Plan of Treatment Upcoming Encounters Date Type Department Care Team (Late st Contact Info) Description 06/14/2023 3:00 PM EDT Office Visit Cardiology, [facility] [address] [facility] [place] [address] Ana Lilia Graves CRNP [address] [facility] [place] [address] 07/07/2023 3:40 PM EDT Office Visit General Internal Medicine [facility] [place] [address] [place] [address] Nora Espinosa MD 200 [facility] [place] [address] Scheduled Procedures Name Priority Associated Diagnoses Date/Ti [...] 01/14/2030 LUNG CANCER SCREENING - USE SMARTSET 80510 Completed 05/05/2021 AAA Screening Completed 05/20/2021 GARDASIL-HPV IMMUNIZATION SERIES Aged Out No longer eligible based on patient's age to complete this topic Hepatitis B Aged Out No longer eligi ble based on patient's age to complete this topic MENINGOCOCCAL (MENACTRA/MENVEO) Aged Out No longer eligible based on patient's age to complete this topic documented as of this encounter Medical Devices Implanted Type Area Hvac Services Professional Device Identifier Shelf Expiration Date Model / Serial / Lot Clip Quick 2.8mm 230cm - [id number] Implanted:Qty: 1 on 05/01/2020 by Augustin Bearden MD at ENDOSCOPY [facility] [email or web address] 06/04/2022 HX-202UR.A / / [id number] documented as [...] and were consensually agreed upon. Care Teams Designer Architect Relationship Specialty Start Date End Date Nora Espinosa MD 200 [facility] [place] [address] PCP - General Internal Medicine 04/04/23 documented as of this encounter
--- OUTSIDE RECORDS SUMMARY | 2023-05-08 05:38 | External Medical Summary ---
Author Name Unknown Address Unknown Organization K0G[facility] [address] [place] [address] Laboratory Report Ordering Provider Test Date Status CODY TIPTON 04/11/2023 13:44:02 Final Observation Date Value Abnormality Reference (Units ) Status BUN 04/11/2023 13:44:02 13 6-20 (mg/dL) Final Creatinine 04/11/2023 13:44:02 1.7 Above high normal 0.6-1.2 (mg/dL) Final Glomerular filtration rate/1.73 sq M.predicted [Volume Rate/Area] in Serum, Plasma or Blood by Creatinine-based formula (CKD-EPI) 04/11/2023 13:44:02 44 Below low normal >=60 (mL/min) Final eGFR is calculated based on the CKD-EPI 2020 equation SODIUM 04/11/2023 13:44:02 139 135-146 (m mol/L) Final Potassium 04/11/2023 13:44:02 3.2 Below low normal 3.5 -5.1 (mmol/L) Final Cl 04/11/2023 13:44:02 102 98-107 (mm ol/L) Final CO2 04/11/2023 13:44:02 24 22-32 (mmo l/L) Final Anion gap 04/11/2023 13:44:02 13 7-15 (mmol /L) Final Glucose 04/11/2023 13:44:02 160 Above high normal 70 -120 (mg/dL) Final Calcium 04/11/2023 13:44:02 9.4 8.4-10.2 ( mg/dL) Final Performing Location [facility] [address] [place] [address]
--- OUTSIDE RECORDS SUMMARY | 2023-05-08 05:38 | External Medical Summary | Summary of Care ---
Author Name Unknown Organization [facility] Address [address] [place] [address] Phone [phone] Care Team Providers Care Bleaching Supervisor Name Role Phone Nora Espinosa MD Primary Care Provider [phone] Encounter Details Date Type Department Care Team [...] (chronic kidney disease) stage III ([facility]),Microalbuminur ia Take 1 Tablet by mouth in the morning. 90 Tablet 3 11/27/2022 Active Folic Acid 1 MG Oral TabletIndications:Pr otein-calorie malnutrition, unspecified severity ([facility]) TAKE 1 TABLET BY MOUTH EVERY DAY 90 Tablet 1 12/24/2022 Active Atorvastatin Calcium 20 MG Oral Tablet (Lipitor)Indications :Dyslipidemia TAKE 1 TABLET BY MOUTH EVERY DAY 90 Tablet 0 03/21/2023 Active NATURAL SUPPLEMENT Take by mouth daily. Metanx for neuropathy in feet 0 Active Tiotropium [place] Monohydrate 18 MCG Inhalation Capsule (Spiriva HandiHaler)Indicatio ns:COPD, group A, by GOLD 2017 classification ([facility]) Inhale 1 Capsule by mouth in the [...] Tablet (Deltasone)Indicatio ns:PMR (polymyalgia rheumatica) ([facility]) Take 1 Tablet by mouth in the morning. Take with food.. 30 Tablet 0 04/13/2023 Active Potassium Chloride Constance ER 10 MEQ Oral Tablet Extended ReleaseIndications:H ypokalemia Take 1 Tablet by mouth in the morning. 30 Tablet 5 04/13/2023 Active DuoDERM CGF Dressing ExternalIndications: Pressure injury of right hip, stage 3 ([facility]) Apply in ulcer and change every 2 days . 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 [address] [place] [address] Farrukh Toure MD [address] [place] [address] 06/14/2023 3:00 PM EDT Office Visit Cardiology, [facility] [address] [place] [address] Ana Lilia Graves CRNP [address] [place] [address] 07/07/2023 3:40 PM EDT Office Visit General Internal Medicine [facility] [address] [facility] [place] [address] Nora [facility]spinosa MD [address] [facility] [address] Scheduled Procedures Name Priority Associated Diagnoses Date/Ti [...] 01/14/2030 LUNG CANCER SCREENING - USE SMARTSET 86828 Completed 05/05/2021 AAA Screening Completed 05/20/2021 GARDASIL-HPV IMMUNIZATION SERIES Aged Out No longer eligible based on patient's age to complete this topic Hepatitis B Aged Out No longer eligi ble based on patient's age to complete this topic MENINGOCOCCAL (MENACTRA/MENVEO) Aged Out No longer eligible based on patient's age to complete this topic documented as of this encounter Medical Devices Implanted Type Area Corncob Pipe Manufacturing Supervisor Device Identifier Shelf Expiration Date Model / Serial / Lot Clip Quick 2.8mm 230cm - [id number] Implanted:Qty: 1 on 05/01/2020 by Augustin Bearden MD at ENDOSCOPY [facility] [employer]ES [facility] 06/04/2022 HX-202UR.A / / 04K Clip Quick 2.8mm 230cm - [id number] Implanted:Qty: 1 on 05/01/2020 by Augustin Bearden MD at ENDOSCOPY [facility] [employer] [facility] 06/04/2022 HX-202UR.A / / 04K Clip Quick 2.8mm 230cm - [id number] Implanted:Qty: 1 on 05/01/2020 by Augustin Bearden MD at ENDOSCOPY [facility] [employer] [facility] 06/04/2022 HX-202UR.A / / 04K Clip Quick 2.8mm 230cm - [id number] Implanted:Qty: 1 on 05/01/2020 by Augustin Bearden MD at ENDOSCOPY [facility] [employer] [facility] 06/04/2022 HX-202UR.A / / 04K Clip Quick 2.8mm 230cm - [id number] Implanted:Qty: 1 on 05/01/2020 by Augustin Bearden MD at ENDOSCOPY [facility] [employer] 06/04/2022 HX-202UR.A / / 04K Clip Quick 2.8mm 230cm - [id number] Implanted:Qty: 1 on 05/01/2020 by Augustin Bearden MD at ENDOSCOPY [facility] [employer] 06/04/2022 HX-202UR.A / / 04K Clip Quick 2.8mm 230cm - [id number] Implanted:Qty: 1 on 05/01/2020 by Augustin Bearden [...] and were consensually agreed upon. Care Teams Bleaching Supervisor Relationship Specialty Start Date End Date Nora Espinosa MD [address] [facility] [place], [place] [address] PCP - General Internal Medicine 04/04/23 documented as of this encounter
--- OUTSIDE RECORDS SUMMARY | 2023-05-08 05:38 | External Medical Summary | Summary of Care ---
Author Name Unknown Organization [facility] Address [address] [place] [address] Phone [phone] Care Team Providers Care Shoder Filler Name Role Phone Nora Espinosa MD Primary Care Provider Encounter Details Date Type Department Care Team (Late st Contact Info) Description 04/13/2023 External Data Patient Risk Medial Allergies No known active allergiesdocumented as of [...] for neuropathy in feet 0 Active Tiotropium Umpire Monohydrate 18 MCG Inhalation Capsule ([employer] HandiHaler)Indicatio [...] myelopathy 10/09/2021 Coronary artery disease invo lving [place] coronary artery without angina pectoris 10/08/2021 DAVF [...] 06/14/2023 3:00 PM EDT Office Visit Cardiology, [facility] [address] [place] [address] Ana Lilia Graves CRNP [address] [place] [address] 07/07/2023 3:40 PM EDT Office Visit General Internal Medicine [facility] [address] [facility] [place] [address] Nora Espinosa MD [address] [facility] [place] [address] Scheduled Procedures Name Priority Associated Diagnoses Date/Ti [...] this encounter Medical Devices Implanted Type Area Coating Mixer Supervisor Device Identifier Shelf Expiration Date Model / Serial / Lot Clip Quick 2.8mm 230cm - [id number] Implanted:Qty: 1 on 05/01/2020 by Augustin Bearden MD at ENDOSCOPY [facility] [employer] 06/04/2022 HX-202UR.A / / 04K documented as [...] and were consensually agreed upon. Care Teams Shoder Filler Relationship Specialty Start Date End Date Nora Espinosa MD 200 [facility], [place] [address] PCP - General Internal Medicine 04/04/23 documented as of this encounter
--- OUTSIDE RECORDS SUMMARY | 2023-05-08 05:38 | External Medical Summary | Summary of Care ---
Author Name Unknown Organization [facility] Address [address] [place] [address] Phone [phone] Care Team Providers Care Manager Infrastructure Name Role Phone Nora Espinosa MD Primary [...] with CKD (chronic kidney disease) stage III ([facility]),Microalbuminur ia Take 1 Tablet by mouth in the morning. 90 Tablet 3 11/27/2022 Active Folic Acid 1 MG Oral TabletIndications:Pr otein-calorie malnutrition, unspecified severity ([facility]) TAKE 1 TABLET BY MOUTH EVERY DAY 90 Tablet 1 12/24/2022 Active Atorvastatin Calcium 20 MG Oral Tablet (Lipitor)Indications :Dyslipidemia TAKE 1 TABLET BY MOUTH EVERY DAY 90 Tablet 0 03/21/2023 Active NATURAL SUPPLEMENT Take by mouth daily. Metanx for neuropathy in feet 0 Active Tiotropium [place] Monohydrate 18 MCG Inhalation Capsule (Spiriva HandiHaler)Indicatio ns:COPD, group A, by GOLD 2017 classification ([facility]) Inhale 1 Capsule by mouth [...] MG Oral Tablet (Deltasone)Indicatio ns:PMR (polymyalgia rheumatica) ([facility]) Take 1 Tablet by mouth in the morning. Take with food.. 30 Tablet 0 04/13/2023 Active Potassium Chloride Constance ER 10 MEQ Oral Tablet Extended ReleaseIndications:H ypokalemia Take 1 Tablet by mouth in the morning. 30 Tablet 5 04/13/2023 Active DuoDERM CGF Dressing ExternalIndications: Pressure injury of right hip, stage 3 ([facility]) Apply in ulcer and change every 2 days . 20 Each 3 04/13/2023 Active oxyCODONE HCl 5 MG Oral Tablet (Oxy IR)Indications:Cervi angela myelopathy ([facility]),Lumbar degenerative disc disease,Osteoarthrit is of [...] myelopathy 10/09/2021 Coronary artery disease invo lving lime coronary artery without angina pectoris 10/08/2021 DAVF [...] 04/29/2023 1:30 PM EST Office Visit Orthopaedics [facility] [address] [place] [address] Farrukh Toure MD [address] [place] [address] 06/14/2023 3:00 PM EDT Office Visit Cardiology, [facility] [address] [place] [address] Ana Lilia Graves CRNP [address] [place] [address] 07/07/2023 3:40 PM EDT Office Visit General Internal Medicine [facility] [address] [facility] [place] [address] N[facility] [address] Scheduled Procedures Name Priority Associated Diagnoses Date/Ti [...] 01/14/2030 LUNG CANCER SCREENING - USE SMARTSET 35807 Completed 05/05/2021 AAA Screening Completed 05/20/2021 GARDASIL-HPV IMMUNIZATION SERIES Aged Out No longer eligible based on patient's age to complete this topic Hepatitis B Aged Out No longer eligi ble based on patient's age to complete this topic MENINGOCOCCAL (MENACTRA/MENVEO) Aged Out No longer eligible based on patient's age to complete this topic documented as of this encounter Medical Devices Implanted Type Area Printing Sales Representative Device Identifier Shelf Expiration Date Model / Serial / Lot Clip Quick 2.8mm 230cm - [id number] Implanted:Qty: 1 on 05/01/2020 by Augustin Bearden MD at ENDOSCOPY [facility] [employer] INES [facility] 06/04/2022 HX-202UR.A / / 04K Clip Quick 2.8mm 230cm - [id number] Implanted:Qty: 1 on 05/01/2020 by Augustin Bearden MD at ENDOSCOPY [facility] [employer] [facility] 06/04/2022 HX-202UR.A / / 04K Clip Quick 2.8mm 230cm - [id number] Implanted:Qty: 1 on 05/01/2020 by Augustin Bearden MD at ENDOSCOPY [facility] [employer] INES [facility] 06/04/2022 HX-202UR.A / / 04K Clip Quick 2.8mm 230cm - [id number] Implanted:Qty: 1 on 05/01/2020 by Augustin Bearden MD at ENDOSCOPY [facility] [employer] [facility] 06/04/2022 HX-202UR.A / / 04K Clip Quick 2.8mm 230cm - [id number] Implanted:Qty: 1 on 05/01/2020 by Augustin Bearden MD at ENDOSCOPY [facility] [employer] 06/04/2022 HX-202UR.A / / 04K Clip Quick 2.8mm 230cm - [id number] Implanted:Qty: 1 on 05/01/2020 by Augustin Bearden MD at ENDOSCOPY [facility] [employer] 06/04/2022 HX-202UR.A / / 04K Clip Quick 2.8mm 230cm - [id number] Implanted:Qty: 1 on 05/01/2020 by Augustin Bearden [...] were consensually agreed upon. Care Teams Manager Infrastructure Relationship Specialty Start Date End Date Nora Espinosa MD [address] [facility] [place], [place] [address] PCP - General Internal Medicine 04/04/23 documented as of this encounter
--- OUTSIDE RECORDS SUMMARY | 2023-05-08 05:38 | External Medical Summary | Summary of Care ---
Author Name Unknown Organization [facility] Address [address] [place] [address] Phone [phone] Care Team Providers Care Research Animal Attendant Name Role Phone Nora Espinosa MD Primary Care Provider [phone] Encounter Details Date Type Department Care Team [...] with CKD (chronic kidney disease) stage III ([facility]),Microalbuminur ia Take 1 Tablet by mouth in the morning. 90 Tablet 3 11/27/2022 Active Folic Acid 1 MG Oral TabletIndications:Pr otein-calorie malnutrition, unspecified severity ([facility]) TAKE 1 TABLET BY MOUTH EVERY DAY 90 Tablet 1 12/24/2022 Active Atorvastatin Calcium 20 MG Oral Tablet (Lipitor)Indications :Dyslipidemia TAKE 1 TABLET BY MOUTH EVERY DAY 90 Tablet 0 03/21/2023 Active NATURAL SUPPLEMENT Take by mouth daily. Metanx for neuropathy in feet 0 Active Tiotropium [place] Monohydrate 18 MCG Inhalation Capsule (Spiriva HandiHaler)Indicatio ns:COPD, group A, by GOLD 2017 classification ([facility]) Inhale 1 Capsule by mouth in the [...] MG Oral Tablet (Deltasone)Indicatio ns:PMR (polymyalgia rheumatica) ([facility]) Take 1 Tablet by mouth in the morning. Take with food.. 30 Tablet 0 04/13/2023 Active Potassium Chloride Constance ER 10 MEQ Oral Tablet Extended ReleaseIndications:H ypokalemia Take 1 Tablet by mouth in the morning. 30 Tablet 5 04/13/2023 Active DuoDERM CGF Dressing ExternalIndications: Pressure injury of right hip, stage 3 ([facility]) Apply in ulcer and change every 2 days . 20 Each 3 04/13/2023 Active oxyCODONE HCl 5 MG Oral Tablet (Oxy IR)Indications:Cervi angela myelopathy ([facility]),Lumbar degenerative disc disease,Osteoarthrit is of spine with [...] 10/09/2021 Coronary artery disease invo lving [place] coronary artery without angina pectoris 10/08/2021 DAVF [...] 04/29/2023 1:30 PM EST Office Visit Orthopaedics [facility] [address] [place] [address] Farrukh Toure MD [address] [place] [address] 06/14/2023 3:00 PM EDT Office Visit Cardiology, [facility] [address] [place] [address] Ana Lilia Graves CRNP [address] [place] [address] 07/07/2023 3:40 PM EDT Office Visit General Internal Medicine [facility] [address] [facility] [place] [address] Nora [facility]osa MD [address] [facility] [address] Scheduled Procedures Name Priority Associated Diagnoses Date/Ti [...] 01/14/2030 LUNG CANCER SCREENING - USE SMARTSET 13444 Completed 05/05/2021 AAA Screening Completed 05/20/2021 GARDASIL-HPV IMMUNIZATION SERIES Aged Out No longer eligible based on patient's age to complete this topic Hepatitis B Aged Out No longer eligi ble based on patient's age to complete this topic MENINGOCOCCAL (MENACTRA/MENVEO) Aged Out No longer eligible based on patient's age to complete this topic documented as of this encounter Medical Devices Implanted Type Area Seaming Inspector Device Identifier Shelf Expiration Date Model / Serial / Lot Clip Quick 2.8mm 230cm - [id number] Implanted:Qty: 1 on 05/01/2020 by Augustin Bearden MD at ENDOSCOPY [facility] [employer]ES [facility] 06/04/2022 HX-202UR.A / / 04K Clip Quick 2.8mm 230cm - [id number] Implanted:Qty: 1 on 05/01/2020 by Augustin Bearden MD at ENDOSCOPY [facility] [employer] [facility] 06/04/2022 HX-202UR.A / / 04K Clip Quick 2.8mm 230cm - [id number] Implanted:Qty: 1 on 05/01/2020 by Augustin Bearden MD at ENDOSCOPY [facility] [employer] [facility] 06/04/2022 HX-202UR.A / / 04K Clip Quick 2.8mm 230cm - [id number] Implanted:Qty: 1 on 05/01/2020 by Augustin Bearden MD at ENDOSCOPY [facility] [employer] 06/04/2022 HX-202UR.A / / 04K Clip Quick 2.8mm 230cm - [id number] Implanted:Qty: 1 on 05/01/2020 by Augustin Bearden MD at ENDOSCOPY [facility] [employer] 06/04/2022 HX-202UR.A / / 04K Clip Quick 2.8mm 230cm - [id number] Implanted:Qty: 1 on 05/01/2020 by Augustin Bearden MD at ENDOSCOPY [facility] [employer] 06/04/2022 HX-202UR.A / / 04K Clip Quick 2.8mm 230cm - [id number] Implanted:Qty: 1 on 05/01/2020 by Augustin Bearden [...] and were consensually agreed upon. Care Teams Research Animal Attendant Relationship Specialty Start Date End Date Nora Espinosa MD [address] [facility] [place], [place] [address] PCP - General Internal Medicine 04/04/23 documented as of this encounter
--- OUTSIDE RECORDS SUMMARY | 2023-05-08 05:39 | External Medical Summary | Summary of Care ---
Author Name Unknown Organization [facility] Address [address] [place] [address] Phone [phone] Care Team Providers Care Radius Corner Machine Operator Name Role Phone Unavailable Primary Care Provider Unavailabl e Reason for Referral * Medication Prior Authorization - Closed Specialty Diagnoses / Procedures Referred By Lizet t Referred To Contact Diagnoses Lumbar degenerative disc disease Spinal stenosis of lumbar region with neurogenic claudication Saeed Espinosa MD [address] [facility] [place] [address] Referral ID Status Reason Start Date Expiration Date Visits Re quested Visits Authorized [id number] Closed 999 999 Reason for Visit * Reason Comments eRx-Medication Refill Encounter Details Date Type Department Care Team (Late st Contact Info) Description 03/31/2023 Refill General Internal Medicine [facility] [place] [address] [place] [address] Saeed Espinosa MD [address] [facility] [place] [address] Lumbar degenerative disc disease; Spinal stenosis of lumbar region with neurogenic claudication Allergies No known active allergiesdocumented as of this encounter (statuses as of 04/01/2023) Medications Medication Sig Dispensed Refills Start Date End Date Status Multi-Vitamins Oral Tablet Take 1 Tablet by mouth in the morning. 0 Active Aspirin 81 MG Oral Tablet Delayed ReleaseIndications: Peripheral vascular disease (HCC) Take 1 Tablet by mouth in the morning. 90 Tablet 1 2 Active Pantoprazole Sodium 40 MG Oral Tablet Delayed Release (Protonix)Indicatio ns:Gastroesophageal reflux disease without esophagitis TAKE 1 TABLET BY MOUTH TWICE A DAY 180 Tablet 1 3 Active CVS B-1 100 MG Oral Tablet (THIAMINE)Indicatio ns:Protein-calorie malnutrition, unspecified severity (HCC) TAKE 1 TABLET BY MOUTH EVERY DAY 90 Tablet 3 3 Active amLODIPine Besylate 10 MG Oral Tablet (Norvasc)Indication s:HTN, goal below 130/80 TAKE 1 TABLET BY MOUTH EVERY DAY 90 Tablet 3 3 Active Docusate Sodium 100 MG Oral Capsule (Colace)Indications :Narcotic bowel syndrome (HCC) Take 1 Capsule by mouth in the morning and 1 Capsule before bedtime. 180 Capsule 1 3 Active Lisinopril 10 MG Oral Tablet (Prinivil)Indicatio ns:Benign hypertension with CKD (chronic kidney disease) stage III ([facility]),Microalbuminu fermin Take 1 Tablet by mouth in the morning. 90 Tablet 3 3 Active Folic Acid 1 MG Oral TabletIndications:P rotein-calorie malnutrition, unspecified severity ([facility]) TAKE 1 TABLET BY MOUTH EVERY DAY 90 Tablet 1 3 Active oxyCODONE HCl 5 MG Oral Tablet (Oxy IR)Indications:Cerv ical myelopathy ([facility]),Lumbar degenerative disc disease,Osteoarthri tis of spine with radiculopathy, cervical region Take 1 Tablet by mouth every 6 hours as needed for Pain, Severe. 120 Tablet 0 4 Active Atorvastatin Calcium 20 MG Oral Tablet (Lipitor)Indication s:Dyslipidemia TAKE 1 TABLET BY MOUTH EVERY DAY 90 Tablet 0 4 Active NATURAL SUPPLEMENT Take by mouth daily. Metanx for neuropathy in feet 0 Active Tiotropium [place] Monohydrate 18 MCG Inhalation Capsule (Spiriva HandiHaler)Indicati ons:COPD, group A, by GOLD 2017 classification ([facility]) Inhale 1 Capsule by mouth in the morning. For inhaler only, do not swallow.. 30 Capsule 11 4 Active Gabapentin 300 MG Oral Capsule (Neurontin)Indicati ons:Lumbar degenerative disc disease,Spinal stenosis of lumbar region with neurogenic claudication TAKE 1 CAPSULE BY MOUTH IN THE MORNING TAKE 2 CAPSULES AFTERNOON AND TAKE 2 CAPSULES IN THE EVENING 120 Capsule 5 4 Active Gabapentin 300 MG Oral Capsule (Neurontin)Indicati ons:Lumbar degenerative disc disease,Spinal stenosis of lumbar region with neurogenic claudication TAKE 1 CAPSULE BY MOUTH IN THE MORNING TAKE 2 CAPSULES AFTERNOON AND TAKE 2 CAPSULES IN THE EVENING 120 Capsule 5 3 04/01/19 24 Discontinued documented as of this encounter (statuses as of 04/01/2023) Active Problems Problem Noted Date Diagnosed Date COPD, group A, by GOLD 2017 classification 11/15 Overview: Per COPD GOLD Classification Protein-calorie malnutrition 11/11/2022 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 Cervical myelopathy 10/09/2021 Coronary artery disease invo lving [place] coronary artery without angina pectoris 10/08/2021 DAVF [...] as of this encounter (statuses as of 04/01/2023) Resolved Problems Problem Noted Date Diagnosed Date [...] as of this encounter (statuses as of 04/01/2023) Immunizations Name Administration Dates Next Due COVID-19 [...] encounter Miscellaneous Notes * Telephone Encounter - Saeed Espinosa MD - 04/01/2023 1:10 PM ESTSigned Prescriptions: Disp Refills Gabapentin 300 MG Oral Capsule (Neurontin) 120 Ca*5 Sig: TAKE 1 CAPSULE BY MOUTH IN THE MORNING TAKE 2 CAPSULES AFTERNOON AND TAKE 2 CAPSULES IN THE EVENING Authorizing Provider: SAEED ESPINOSA * Telephone Encounter - Shannon Connelly RPh - 04/01/2023 10:48 AM EST Pending Prescriptions: Disp Refills Gabapentin 300 MG Oral Capsule (Neurontin) 120 Ca*5 Sig: TAKE 1 CAPSULE BY MOUTH IN THE MORNING TAKE 2 CAPSULES AFTERNOON AND TAKE 2 CAPSULES IN THE EVENING * Telephone Encounter - Shannon Connelly RPh - 04/01/2023 10:48 AM EST Did you pend patient's preferred pharmacy and medication before forwarding?yes Pharmacy: [id number] Pending Prescriptions: Disp Refills Gabapentin 300 MG Oral Capsule (Neurontin*120 Ca*5 Sig: TAKE 1 CAPSULE BY MOUTH IN THE MORNING TAKE 2 CAPSULES AFTERNOON AND TAKE 2 CAPSULES IN THE EVENING Last Visit: 03/31/2023 (in office), Visit date not found (telemedicine) Next Visit: 07/07/2023 If no future appointments scheduled, and last appointment is greater than a year ago, please schedule patient for a follow-up appointment Last date the medication was ordered: 10/28/22 Is this request for a controlled substance?No Urine Drug Screen:No results found for this or any previous visit. Patient Phone Numbers Labs: Lab Results Component Value Date/Time CREAT 1.7 (H) 07/06/2022 03:23 PM CREAT 1.7 (H) 03/28/2020 03:00 PM POTASSIUM 4.1 07/06/2022 03:23 PM POTASSIUM 4.4 03/28/2020 03:00 PM TSH 2.180 10/27/2019 12:00 AM TSH 1.31 01/09/2019 02:03 PM LDLCALC 69 11/17/2022 04:27 PM LDLCALC 77 01/09/2019 02:03 PM ALT 14 04/09/2021 03:25 PM ALT 17 01/09/2019 02:03 PM documented in this encounter Plan of Treatment Upcoming Encounters Date Type Department Care Team (Late st Contact Info) Description 06/14/2023 3:00 PM EDT Office Visit Cardiology, [facility] [address] [place] [address] Ana Lilia Graves CRNP [address] [place] [address] 07/07/2023 3:40 PM EDT Office Visit General Internal Medicine [facility] [place] [address] [place] [address] Saeed Espinosa MD [address] [facility] [place] [address] Scheduled Procedures Name Priority Associated Diagnoses Date/Ti [...] Vaccine (FLU shot) (#1) 2022 01/14/2021, 11/22/2019 GFR 07/07/2023 07/06/2022, 10/06, 10/24/2021, Additional history exists Depression Screening 11/12/2023 11/11/2022 O2 ASSESSMENT COMPLETED IN PAST YEAR FOR COPD 03/31/2024 03/31/2023 Albumin/Creatinine Ratio 11/11/2025 11/11/2022, 09/05 Colonoscopy 01/14/2030 [...] this encounter Medical Devices Implanted Type Area National Investigative Producer Device Identifier Shelf Expiration Date Model / Serial / Lot Clip Quick 2.8mm 230cm - [id number] Implanted:Qty: 1 on 05/01/2020 by Augustin Bearden MD at ENDOSCOPY [facility] [address] [address] [email or web address] 06/04/2022 HX-202UR.A / / [id number] documented as of this encounter Visit Diagnoses Diagnosis Lumbar degenerative disc disease Degeneration of lumbar or lumbosacral intervertebral disc Spinal stenosis of lumbar region with neurogenic claudication Spinal stenosis, lumbar region, with neurogenic claudication documented in this encounter Advance Directives Latest [...]
--- OUTSIDE RECORDS SUMMARY | 2023-05-08 05:39 | External Medical Summary ---
Author Name Unknown Address Unknown Organization [id number]:[facility] [place] [address] [place] [address] Laboratory Report Ordering Provider Test Date Status CODY TIPTON 04/02/2023 14:03:43 Final Observation Date Value Abnormality Reference (Units ) Status BUN 04/02/2023 14:03:43 15 6-20 (mg/dL) Final Creatinine 04/02/2023 14:03:43 1.8 Above high normal 0.6-1.2 (mg/dL) Final Glomerular filtration rate/1.73 sq M.predicted [Volume Rate/Area] in Serum, Plasma or Blood by Creatinine-based formula (CKD-EPI) 04/02/2023 14:03:43 42 Below low normal >=60 (mL/min) Final eGFR is calculated based on the CKD-EPI 2020 equation SODIUM 04/02/2023 14:03:43 141 135-146 (m mol/L) Final Potassium 04/02/2023 14:03:43 3.3 Below low normal 3.5 -5.1 (mmol/L) Final Cl 04/02/2023 14:03:43 102 98-107 (mm ol/L) Final CO2 04/02/2023 14:03:43 20 Below low normal 22- 32 (mmol/L) Final Anion gap 04/02/2023 14:03:43 19 Above high normal 7- 15 (mmol/L) Final Glucose 04/02/2023 14:03:43 100 70-120 (mg /dL) Final Albumin 04/02/2023 14:03:43 3.7 Below low normal 3.8 -5.0 (g/dL) Final AST (Aspartate aminotransferase) 04/02/2023 14:03:43 16 10-50 (U/L) Fin al Alk Phos 04/02/2023 14:03:43 102 35-130 (U/ L) Final Bilirubin, Total 04/02/2023 14:03:43 0.4 <=1 .2 (mg/dL) Final Calcium 04/02/2023 14:03:43 9.5 8.4-10.2 ( mg/dL) Final Protein 04/02/2023 14:03:43 6.7 6.0-8.3 (g /dL) Final ALT (Alanine aminotransferase) 04/02/2023 14:03:43 17 10-50 (U/L) Maurizio hanley Performing Location [facility] [address] [place] [address]
--- OUTSIDE RECORDS SUMMARY | 2023-05-08 05:39 | External Medical Summary ---
Author Name Unknown Address Unknown Organization [id number] [address] [place] [address] Laboratory Report Ordering Provider Test Date Status CODY TIPTON 04/02/2023 14:03:43 Final Observation Date Value Abnormality Reference (Units ) Status WBC, Total 04/02/2023 14:03:43 13.04 Above high normal 4 .00-10.80 (K/uL) Final RBC 04/02/2023 14:03:43 4.65 4.50-5.25 (M/uL) Final Hemoglobin 04/02/2023 14:03:43 13.8 Below low normal 14 .0-16.8 (g/dL) Final HCT 04/02/2023 14:03:43 41.9 40.0-48.4 (%) Final MCV 04/02/2023 14:03:43 90.1 82.0-99.5 (fL) Final MCH 04/02/2023 14:03:43 29.7 27.0-34.0 (pg) Final MCHC 04/02/2023 14:03:43 32.9 32.0-36.0 (g/dL) Final RDW 04/02/2023 14:03:43 14.3 11.5-15.5 (%) Final Platelets 04/02/2023 14:03:43 569 Above high normal 14 0-400 (K/uL) Final MPV 04/02/2023 14:03:43 10.2 6.6-11.1 ( fL) Final Performing Location [facility]ORY [facility] [address] [place] [address]
--- OUTSIDE RECORDS SUMMARY | 2023-05-08 05:39 | External Medical Summary ---
Author Name Unknown Address Unknown Organization [id number]:[facility] [address] [place] [address] Laboratory Report Ordering Provider Test Date Status CODY TIPTON 04/11/2023 13:44:02 Final Observation Date Value Abnormality Reference (Units ) Status Magnesium 04/11/2023 13:44:02 2.1 1.5-2.6 (m g/dL) Final Performing Location LAB[facility]ATORY [facility] - [address] [place] [address]
--- OUTSIDE RECORDS SUMMARY | 2023-05-08 05:39 | External Medical Summary | Summary of Care ---
Author Name Unknown Organization [facility] Address [address] [place] [address] Phone [phone] Care Team Providers Care Telegraph Mechanic Name Role Phone Nora Espinosa MD Primary Care Provider [phone] Reason for Visit * Reason Onset Date Comments Test Results 04/04/2023 Encounter Details Date Type Department Care Team (Late st Contact Info) Description 04/04/2023 Telephone General Internal Medicine [facility] [address] [place] [address] Nora Espinosa MD [address] [place] [address] Test Results Allergies No known active allergiesdocumented as of this encounter (statuses as of 04/04/2023) Medications Medication Sig Dispensed Refills Start Date [...] for neuropathy in feet 0 Active Tiotropium Gentry Monohydrate 18 MCG Inhalation Capsule (Spiriva HandiHaler)Indicatio ns:COPD, group A, by GOLD 2017 classification ([facility]) Inhale 1 Capsule by mouth [...] as of this encounter (statuses as of 04/04/2023) Active Problems Problem Noted Date Diagnosed Date COPD, group A, by GOLD 2017 classification 11/15 Overview: Per COPD GOLD Classification Protein-calorie malnutrition 11/11/2022 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 Verbalized understanding. She will bring him in on a Tuesday at [facility] to have his labs drawn and get US, that works better for them. * Telephone Encounter - Ashley Wynn LPN - 04/04/2023 2:03 PM EST ----- Message from Nora Espinosa MD sent at 04/03/2023 10:37 AM EST ----- Potassium slightly low. He is not any any med to lower potassium so could be form low appetite as protein is also low - encourage food high in green , raisin, banana, oranges , apricot etc. Sed rate high which is marker of inflammation . Repeat in 1-2 weeks along with other labs to r/o connective tissue disorder WBC count and platelet both high and been that way for a while - could be from inflammation but check blood culture with next lab to r/o infection. 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 No bony lesion seen so lump is likely soft tissue- suggest to get US of hip for further eval All ordered documented in this encounter Plan of Treatment Upcoming Encounters Date Type Department Care Team (Late st Contact Info) Description 06/14/2023 3:00 PM EDT [facility], [facility] [address] [facility] [place] [address] Ana Lilia Graves CRNP [address] [place] [address] 07/07/2023 3:40 PM EDT Office Visit General Internal Medicine [facility] [place] [address] [place] [address] Nora Espinosa MD [address] [facility] [place] [address] Scheduled Procedures Name Priority Associated Diagnoses Date/Ti [...] FOR COPD 03/31/2024 03/31/2023 GFR 04/02/2024 04/02/2023, 05/0 04/2022, 10/31/2021, Additional history exists Albumin/Creatinine Ratio 11/11/2025 [...] this encounter Medical Devices Implanted Type Area Substation Electrician Supervisor Device Identifier Shelf Expiration Date Model / Serial / Lot Clip Quick 2.8mm 230cm - [id number] Implanted:Qty: 1 on 05/01/2020 by Augustin Bearden MD at ENDOSCOPY [facility] [email or web address] 06/04/2022 [id number] / [id number] documented [...] and were consensually agreed upon. Care Teams Telegraph Mechanic Relationship Specialty Start Date End Date oNra Espinosa MD [address] [place] [address] PCP - General Internal Medicine 04/04/23 documented as of this encounter
--- OUTSIDE RECORDS SUMMARY | 2023-05-08 05:39 | External Medical Summary ---
Author Name Unknown Address Unknown Organization [id number]:LAB[facility]ATORY [facility] [place] - [address] [place] [id number] Laboratory Report Ordering Provider Test Date Status CODY TIPTON 04/11/2023 13:44:02 Final Observation Date Value Abnormality Reference (Units ) Status Bacteria identified in Specimen by Culture 04/11/2023 13:44:02 No growth Final Test: Culture, Blood
Sp ecimen Source: Blood, Venous
Specimen Type: Blood
Specimen Date: 04/11/2023 1:44 PM
Result Date: 04/16/2023 5:01 PM
Result Status: Final result
Resulting Lab: LAB[facility]ATORY [facility]
[address]
[place] [address]

CULTURE

No growth

null Performing Location LABORATORY [facility] [place] - [address] [facility] [address]
--- OUTSIDE RECORDS SUMMARY | 2023-05-08 05:39 | External Medical Summary | Summary of Care ---
Author Name Unknown Organization [facility] Address [address] [place] [address] Phone [phone] Care Team Providers Care Assistant Designer Name Role Phone Unavailable Primary Care Provider Unavailabl e Reason for Visit * Reason Comments eRx-Medication Refill Encounter Details Date Type Department Care Team (Late st Contact Info) Description 03/19/2023 Refill General Internal Medicine, [facility], [facility] [address] [place], [place] [id number] Saeed Espinosa MD [address] [facility] [place] [address] Dyslipidemia Allergies No known active allergiesdocumented as of this encounter (statuses as of 03/21/2023) Medications Medication Sig Dispensed Refills Start Date End Date Status Multi-Vitamins Oral Tablet Take 1 Tablet by mouth in the morning. 0 Active Aspirin 81 MG Oral Tablet Delayed ReleaseIndication s:Peripheral vascular disease (HCC) Take 1 Tablet by mouth in the morning. 90 Tablet 1 10/13/2021 Active Pantoprazole Sodium 40 MG Oral Tablet Delayed Release (Protonix)Indicat ions:Gastroesopha geal reflux disease without esophagitis TAKE 1 TABLET BY MOUTH TWICE A DAY 180 Tablet 1 08/28/2022 Active CVS B-1 100 MG Oral Tablet (THIAMINE)Indicat ions:Protein-costa mario malnutrition, unspecified severity (HCC) TAKE 1 TABLET BY MOUTH EVERY DAY 90 Tablet 3 08/28/2022 Active amLODIPine Besylate 10 MG Oral Tablet (Norvasc)Indicati ons:HTN, goal below 130/80 TAKE 1 TABLET BY MOUTH EVERY DAY 90 Tablet 3 09/15/2022 Active Gabapentin 300 MG Oral Capsule (Neurontin)Indica tions:Lumbar degenerative disc disease,Spinal stenosis of lumbar region with neurogenic claudication TAKE 1 CAPSULE BY MOUTH IN THE MORNING TAKE 2 CAPSULES AFTERNOON AND TAKE 2 CAPSULES IN THE EVENING 120 Capsule 5 10/28/2022 Active Docusate Sodium 100 MG Oral Capsule (Colace)Indicatio ns:Narcotic bowel syndrome (HCC) Take 1 Capsule by mouth in the morning and 1 Capsule before bedtime. 180 Capsule 1 10/29/2022 Active Lisinopril 10 MG Oral Tablet (Prinivil)Indicat ions:Benign hypertension with CKD (chronic kidney disease) stage III (HCC),Microalbumi kenroy Take 1 Tablet by mouth in the morning. 90 Tablet 3 11/27/2022 Active Folic Acid 1 MG Oral TabletIndications :Protein-calorie malnutrition, unspecified severity (HCC) TAKE 1 TABLET BY MOUTH EVERY DAY 90 Tablet 1 12/24/2022 Active oxyCODONE HCl 5 MG Oral Tablet (Oxy IR)Indications:Ce rvical myelopathy (HCC),Lumbar degenerative disc disease,Osteoarth ritis of spine with radiculopathy, cervical region Take 1 Tablet by mouth every 6 hours as needed for Pain, Severe. 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 Spinal. HTN, goal below 130/80 01/20/2020 Dyslipidemia 01/20/2020 Peripheral vascular disease 01/17/2020 Lumbar degenerative disc disease 09/24/2019 Osteoarthritis of spine with radiculopathy, cerv ical region 08/31/2019 Left cervical radiculopathy 08/31/2019 Other constipation 08/31/2019 ADVANCE DIRECTIVE INFORMATION 01/10/2008 Overview: No, Advance Directive brochure given to patient. Tobacco abuse documented as of this encounter (statuses as of 03/21/2023) Resolved Problems Problem Noted Date Diagnosed Date Resolved Date COPD (chronic obstructive pulmonary disease) 2 11/18/2022 Overview: Per COPD GOLD Classification Stage 3a chronic kidney disease 01/14/2020 01/17/2020 Overview: Per CKD protocol - Per CKD protocol Kidney disease, chronic, sta ge III (GFR 30-59 ml/min) 08/13/2019 01/17/2020 Overview: Per CKD protocol Fracture of rib of left side 08/06/2011 02/02/2012 NO KNOWN PROBLEMS 11/30/2006 10/27/2011 documented as of this encounter (statuses as of 03/21/2023) Immunizations Name Administration Dates Next Due COVID-19 [...] encounter Miscellaneous Notes * Telephone Encounter - Seaed Espinosa MD - 03/21/2023 12:36 PM ESTSigned Prescriptions: Disp Refills Atorvastatin Calcium 20 MG Oral Tablet (Li*90 Tab*0 Sig: TAKE 1 TABLET BY MOUTH EVERY DAY Authorizing Provider: SAEED ESPINOSA * Telephone Encounter - Rehana Desai RPh - 03/21/2023 11:08 AM ESTPending Prescriptions: Disp Refills Atorvastatin Calcium 20 MG Oral Tablet (Li*90 Tab*1 Sig: TAKE 1 TABLET BY MOUTH EVERY DAY * Telephone Encounter - Rehana Desai RPh - 03/21/2023 11:07 AM EST Patient has no PCP under whom to authorize refills. Please approve if appropriate. Pt has appt to [facility]31 Rehana Garcia, PharmD Clinical Pharmacist [facility] ([facility] (formerly Telepharmacy) [phone] 03/21/2023 11:07 AM documented in this encounter Plan of Treatment Upcoming Encounters Date Type Department Care Team (Late st Contact Info) Description 03/31/2023 4:20 PM EST Office Visit General Internal Medicine [facility] [address] [place] [address] Saeed Espinosa MD [address] [facility] [place] [address] 06/14/2023 3:00 PM EDT Office Visit Cardiology, [facility] [address] [place] [address] Ana Lilia Graves CRNP [address] [place] [address] Scheduled Procedures Name Priority Associated Diagnoses Date/Ti [...] ASSESSMENT COMPLETED IN PAST YEAR FOR COPD 11/24/2023 11/23/2022 Albumin/Creatinine Ratio 11/11/2025 11/11/2022, 09/05 Colonoscopy 01/14/2030 [...] this encounter Medical Devices Implanted Type Area Weight Calculator Device Identifier Shelf Expiration Date Model / Serial / Lot Clip Quick 2.8mm 230cm - [id number] Implanted:Qty: 1 on 05/01/2020 by Augustin Bearden MD at ENDOSCOPY [facility] [employer] [facility] 06/04/2022 [id number] / [id number] documented as of this encounter Visit Diagnoses Diagnosis Dyslipidemia Other and unspecified hyperlipidemia documented in this encounter Advance Directives Latest [...]
--- OUTSIDE RECORDS SUMMARY | 2023-05-08 05:39 | External Medical Summary ---
Author Name Unknown Address Unknown Organization [id number]:LABORATORY [facility] [place] - [address] [place] [address] Laboratory Report Ordering Provider Test Date Status CODY TIPTON 04/11/2023 13:44:42 Final Normal: <150 mg/ g creatinine
High: 150-500 mg/g creatinine
Very High: >500 mg/g creatinine
Nephrotic: >3000 mg/g creatinine Observation Date Value Abnormality Reference (Units ) Status Protein/Creatinine [Ratio] in Urine 04/11/2023 13:44:42 2140 Above high normal <150 (mg/g ) Final Protein, Urine 04/11/2023 13:44:42 107 (mg/dL) Final Creatinine, Urine 04/11/2023 13:44:42 50 (mg/dL) Final Performing Location LABORATORY [facility] [place] - [address] [place] [address]
--- OUTSIDE RECORDS SUMMARY | 2023-05-08 05:39 | External Medical Summary ---
Author Name Unknown Address Unknown Organization [id number]:[facility]ORY [facility] [place] [address] [facility] [address] Laboratory Report Ordering Provider Test Date Status KING JACOB 04/02/2023 14:03:43 Final Observation Date Value Abnormality Reference (Units ) Status Triglyceride 04/02/2023 14:03:43 83 <=174 ( mg/dL) Final Triglyceride Reference Range s (mg/dL):
<150 Acceptable
150-174 Borderline high
175-499 High
>=500 Very high Cholesterol 04/02/2023 14:03:43 131 <200 (mg /dL) Final Total Cholesterol Reference Ranges (mg/dL):
<200 Desirable
200-239 Borderline high
>=240 High HDL 04/02/2023 14:03:43 47 >39 (mg/dL ) Final HDL Cholesterol Reference Ra nges (mg/dL):
>=60 High (Desirable)
<50 Low (Undesirable) For Females
<40 Low (Undesirable) For Males NON-HDL CHOLESTEROL 04/02/2023 14:03:43 84 <=159 (mg/dL) Final Non-HDL Cholesterol Referenc e Range (mg/dL):
<100 Target level for high risk ASCVD patient
<130 Optimal for general population
130-159 Near optimal for general population
160-189 Borderline High
190-219 High
>=220 Very High LDL, (calculated) 04/02/2023 14:03:43 67 <= 129 (mg/dL) Final LDL Cholesterol Reference Ra nges (mg/dL):
<70 Target level for high risk ASCVD patient
<100 Optimal for general population
100-129 Near optimal for general population
130-159 Borderline high
160-189 High
>=190 Very high Performing Location LAB[facility]ORY [facility] [place] [address] [facility] [address]
--- OUTSIDE RECORDS SUMMARY | 2023-05-08 05:39 | External Medical Summary ---
Author Name Unknown Address Unknown Organization [id number]:LABORATORY [address] [facility] [address] Laboratory Report Ordering Provider Test Date Status CODY TIPTON 04/11/2023 13:44:02 Final Observation Date Value Abnormality Reference (Units ) Status Nuclear IgG Ab [Ratio] in Serum by Immunoassay 04/11/2023 13:44:02 Negative Negative Final DNA double strand Ab [Presence] in Serum 04/11/2023 13:44:02 Negative Negative Final DOUBLE STRANDED DNA VALUE - [facility] 04/11/2023 13:44:02 0.9 <20 (IU/mL) Final Extractable nuclear Ab [Presence] in Serum 04/11/2023 13:44:02 Negative Negative Final Nuclear IgG Ab [Ratio] in Serum by Immunoassay 04/11/2023 13:44:02 0.3 <0.7 (Ratio) Final Screening is based on detect ion of the following antibodies: dsDNA, U1-STEEPING PRESS OPERATOR (RNP70, A, C), SS-A/Ro, SS-B / La, Lolly-1, Scl-70, Centromere B proteins and Sm proteins. In conjunction with clinical findings, this can aid in the diagnosis of systemic lupus erythematosous (SLE), mixed connective tissue disease (MCTD), Sjogren's syndrome, scleroderma and polymyositis/dermatomyositis.
However, a negative result does not rule out systemic rheumatic or other autoimmune disease. If clinically suspected, further evaluation and testing may be necessary. Please consult with Rheumatology Department.
Methodology: Fluorescent Enzyme Immunoassay. Performing Location LABORATORY [address] [facility] [address]
--- OUTSIDE RECORDS SUMMARY | 2023-05-08 05:39 | External Medical Summary ---
Author Name Unknown Address Unknown Organization [id number]:[facility] [place] [address] [place] [address] Laboratory Report Ordering Provider Test Date Status CODY TIPTON 04/02/2023 14:03:43 Final Observation Date Value Abnormality Reference (Units ) Status Folic Acid 04/02/2023 14:03:43 >20.0 >4.5 (ng/ mL) Final Performing Location LABORATORY [facility] [place] - [address] [place] [address]
--- OUTSIDE RECORDS SUMMARY | 2023-05-08 05:39 | External Medical Summary ---
Author Name Unknown Address Unknown Organization [id number]:LABORATORY [facility] [place] - [address] [facility] [address] Laboratory Report Ordering Provider Test Date Status CODY TIPTON 04/02/2023 14:03:43 Final Observation Date Value Abnormality Reference (Units ) Status HbA1C 04/02/2023 14:03:43 5.5 4.0-5.6 (% ) Final The use of HbA1c to monitor glycemic status is based on normal hemoglobin and HbA composition. This test should not be used in patients with abnormal hemoglobin that affects the half life of the red blood cell or the in vivo glycation rates. Glucose, estimated average 04/02/2023 14:03:43 111 <126 (mg/dL) Final Performing Location LABOR[facility]ORY [facility] [place] [facility] [address] [facility] [address]
--- OUTSIDE RECORDS SUMMARY | 2023-05-08 05:39 | External Medical Summary | Summary of Care ---
Author Name Unknown Organization [facility] Address [address] [place] [address] Phone [phone] Care Team Providers Care Contract Programmer Name Role Phone Unavailable Primary Care Provider Unavailabl e Reason for Referral * Medication Prior Authorization - Closed Specialty Diagnoses / Procedures Referred By Lizet meehan Referred To Contact Diagnoses Cervical myelopathy (HCC) Lumbar degenerative disc disease Osteoarthritis of spine with radiculopathy, cervical region Jonah Neal MD [address] [email or web address] [address] Referral ID Status Reason Start Date Expiration Date Visits Re quested Visits Authorized [id number] Closed 999 999 Reason for Visit * Reason Onset Date Comments Medication Refill 03/10/2023 Encounter Details Date Type Department Care Team (Late st Contact Info) Description 03/10/2023 Refill [facility] Practice [facility] [address] [facility] [address] Jonah Neal MD [address] [email or web address] [address] Cervical myelopathy (HCC); Lumbar degenerative disc disease; Osteoarthritis of spine with radiculopathy, cervical region Allergies No known active allergiesdocumented as of this encounter (statuses as of 03/10/2023) Medications Medication Sig Dispensed Refills Start Date End Date Status Multi-Vitamins Oral Tablet Take 1 Tablet by mouth in the morning. 0 Active Aspirin 81 MG Oral Tablet Delayed ReleaseIndications :Peripheral vascular disease (HCC) Take 1 Tablet by mouth in the morning. 90 Tablet 1 10/13/2021 Active Pantoprazole Sodium 40 MG Oral Tablet Delayed Release (Protonix)Indicati ons:Gastroesophage al reflux disease without esophagitis TAKE 1 TABLET BY MOUTH TWICE A DAY 180 Tablet 1 08/28/2022 Active [facility] B-1 100 MG Oral Tablet (THIAMINE)Indicati ons:Protein-calori e malnutrition, unspecified severity (HCC) TAKE 1 TABLET BY MOUTH EVERY DAY 90 Tablet 3 08/28/2022 Active Atorvastatin Calcium 20 MG Oral Tablet (Lipitor)Indicatio ns:Dyslipidemia TAKE 1 TABLET BY MOUTH EVERY DAY 90 Tablet 1 08/28/2022 Active amLODIPine Besylate 10 MG Oral Tablet (Norvasc)Indicatio ns:HTN, goal below 130/80 TAKE 1 TABLET BY MOUTH EVERY DAY 90 Tablet 3 09/15/2022 Active Gabapentin 300 MG Oral Capsule (Neurontin)Indicat ions:Lumbar degenerative disc disease,Spinal stenosis of lumbar region with neurogenic claudication TAKE 1 CAPSULE BY MOUTH IN THE MORNING TAKE 2 CAPSULES AFTERNOON AND TAKE 2 CAPSULES IN THE EVENING 120 Capsule 5 10/28/2022 Active Docusate Sodium 100 MG Oral Capsule (Colace)Indication s:Narcotic bowel syndrome (HCC) Take 1 Capsule by mouth in the morning and 1 Capsule before bedtime. 180 Capsule 1 10/29/2022 Active Lisinopril 10 MG Oral Tablet (Prinivil)Indicati ons:Benign hypertension with CKD (chronic kidney disease) stage III (HCC),Microalbumin uria Take 1 Tablet by mouth in the morning. 90 Tablet 3 11/27/2022 Active Folic Acid 1 MG Oral TabletIndications: Protein-calorie malnutrition, unspecified severity (HCC) TAKE 1 TABLET BY MOUTH EVERY DAY 90 Tablet 1 12/24/2022 Active oxyCODONE HCl 5 MG Oral Tablet (Oxy IR)Indications:Cer vical myelopathy (HCC),Lumbar degenerative disc disease,Osteoarthr itis of spine with radiculopathy, cervical region Take 1 Tablet by mouth every 6 hours as needed for Pain, Severe. 120 Tablet 0 03/10/2023 Active oxyCODONE HCl 5 MG Oral Tablet (Oxy IR)Indications:Cer vical myelopathy (HCC),Lumbar degenerative disc disease,Osteoarthr itis of spine with radiculopathy, cervical region Take 1 Tablet by mouth every 6 hours as needed for Pain, Severe. 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 Authorizing Provider: JONAH NEAL * Telephone Encounter - Kristina Scherer [facility] - 03/10/2023 8:47 AM EST Pending Prescriptions: Disp Refills oxyCODONE HCl 5 MG Oral Tablet (Oxy IR) 120 Ta*0 Sig: Take 1 Tablet by mouth every 6 hours as needed for Pain, Severe. * Telephone Encounter - Kristina Scherer [facility] - 03/10/2023 8:46 AM EST I have reviewed the patients controlled substance dispensing history in the Prescription Drug Monitoring Program in compliance with the [facility] regulations before prescribing a controlled substance. PDMP checked on 03/10/2023. Pending Prescriptions: Disp Refills oxyCODONE HCl 5 MG Oral Tablet (Oxy IR) 120 Ta*0 Sig: Take 1 Tablet by mouth every 6 hours as needed for Pain, Severe. Last Visit: 11/11/2022 (in office), 11/26/2021 (telemedicine) Next Visit: Visit date not found Date medication was last filled: 01/28 Date medication is due for refill: 02/26 Pharmacy: [facility] [id number] Is this request for a controlled substance? Yes and Urine Drug Screen Not completed Toxicology results: No results found for this or any previous visit. Please approve if appropriate. Thank you, Kristina Scherer, PharmD. Clinical Pharmacist [facility] ([facility]) (formerly Telepharmacy) 03/10/2023, 8:46 AM * Telephone Encounter - Tata Claros, performance improvement analyst - 03/10/2023 8:41 AM EST Almost out of med Did you pend patient's preferred pharmacy and medication before forwarding?yes Pharmacy: [facility] [id number] Pending Prescriptions: Disp Refills oxyCODONE HCl 5 MG Oral Tablet (Oxy IR) 120 Ta*0 Sig: Take 1 Tablet by mouth every 6 hours as needed for Pain, Severe. Last Visit: 11/11/2022 (in office), 11/26/2021 (telemedicine) Next Visit: Visit date not found If no future appointments scheduled, and last appointment is greater than a year ago, please schedule patient for a follow-up appointment Last date the medication was ordered: 01/28/2023 Is this request for a controlled substance?Take 1 Tablet by mouth every 6 hours as needed for Pain,Severe Urine Drug Screen:No results found for this [...] Care Team (Late st Contact Info) Description 03/23/2023 2:00 PM EST Office Visit General Internal Medicine [facility] [address] [facility] [place] [address] Osei Alexander MD [address] [facility] [place] [address] 06/14/2023 3:00 PM EDT Office Visit Cardiology, [facility] [address] [place] [address] Ana Lilia Graves CRNP [address] [place] [address] Scheduled Procedures Name Priority Associated Diagnoses Date/Ti [...] this encounter Medical Devices Implanted Type Area Veterinary Pathologist Device Identifier Shelf Expiration Date Model / Serial / Lot Clip Quick 2.8mm 230cm - [id number] Implanted:Qty: 1 on 05/01/2020 by Augustin Bearden MD at [facility] [employer] 06/04/2022 [id number] / [id number] documented [...]
--- OUTSIDE RECORDS SUMMARY | 2023-05-08 05:39 | External Medical Summary | Summary of Care ---
Author Name Unknown Organization [facility] Address [address] [place] [address] Phone [phone] Care Team Providers Care Ceramic Products Sales Engineer Name Role Phone Nora Espinosa MD Primary Care Provider [phone] Reason for Visit * Reason Onset Date Comments Appointment 04/04/2023 Encounter Details Date Type Department Care Team (Late st Contact Info) Description 04/04/2023 Telephone General Internal Medicine [facility] [place] [address] [facility] [place] [address] Nora Espinosa MD [address] [facility] [place] [address] Appointment Allergies No known active allergiesdocumented as [...] for neuropathy in feet 0 Active Tiotropium [place] Monohydrate 18 MCG Inhalation Capsule (Spiriva HandiHaler)Indicatio [...] myelopathy 10/09/2021 Coronary artery disease invo lving pala coronary artery without angina pectoris 10/08/2021 DAVF [...] encounter Miscellaneous Notes * Telephone Encounter - China Milton [facility] - 04/04/2023 10:39 AM EST Pt needs to schedule - US EXTREMITY, NON-VASCULAR LIMITED [USEXTRL] (Order [id number]) - Reflex for Order [id number] LMOM 04/04/2023 RMK documented in this encounter Plan of Treatment Upcoming Encounters Date Type Department Care Team (Late st Contact Info) Description 06/14/2023 3:00 PM EDT Office Visit Cardiology, [facility] [address] [place] [address] Ana Lilia Graves CRNP [address] [place] [address] 07/07/2023 3:40 PM EDT Office Visit General Internal Medicine [facility] [address] [facility] [place] [address] Nora Espinosa MD [address] [facility] [place] [address] Scheduled Procedures Name Priority Associated Diagnoses Date/Ti [...] this encounter Medical Devices Implanted Type Area Trim Mechanic Device Identifier Shelf Expiration Date Model / Serial / Lot Clip Quick 2.8mm 230cm - [id number] Implanted:Qty: 1 on 05/01/2020 by Augustin Bearden MD at [facility] [employer] 06/04/2022 [id number] / [id number] documented as [...] and were consensually agreed upon. Care Teams Ceramic Products Sales Engineer Relationship Specialty Start Date End Date Nora Espinosa MD [address] [facility] [place] [address] PCP - General Internal Medicine 04/04/23 documented as of this encounter
--- OUTSIDE RECORDS SUMMARY | 2023-05-08 05:39 | External Medical Summary ---
Author Name Unknown Address Unknown Organization [id number]:[facility] - [address] [place] [address] Laboratory Report Ordering Provider Test Date Status SAEEDREEMATODD 04/02/2023 14:03:43 Final Observation Date Value Abnormality Reference (Units ) Status TSH 04/02/2023 14:03:43 2.22 0.27-4.20 (uIU/mL) Final Performing Location [facility] - [address] [place] [address]
--- OUTSIDE RECORDS SUMMARY | 2023-05-08 05:39 | External Medical Summary ---
Author Name Unknown Address Unknown Organization [id number][facility] [place] [address] [place] [address] Laboratory Report Ordering Provider Test Date Status CODY TIPTON 04/11/2023 13:44:02 Final Observation Date Value Abnormality Reference (Units ) Status Borrelia burgdorferi IgG and IgM [Interpretation] in Serum by Immunoassay 04/11/2023 13:44:02 Negative Negative Final Performing Location [facility] - [address] [place] [address]
--- OUTSIDE RECORDS SUMMARY | 2023-05-08 05:39 | External Medical Summary ---
Author Name Unknown Address Unknown Organization [id number]:[facility] - [address] [place] [address] Laboratory Report Ordering Provider Test Date Status CODY TIPTON 04/02/2023 14:03:43 Final Deficient: <20 ng/mL
Ins ufficient: 20-29 ng/mL
Recommended/Optimum:30-50 ng/mL

Vitamin D intoxication is rare. If suspicious of Vitamin D toxicity, evaluation of serum Calcium and PTH is recommended. Observation Date Value Abnormality Reference (Units ) Status 25-OH Vitamin D total 04/02/2023 14:03:43 34 >19 (ng/mL) Final Performing Location [facility] - [address] [place] [address]
--- OUTSIDE RECORDS SUMMARY | 2023-05-08 05:39 | External Medical Summary | Summary of Care ---
Author Name Unknown Organization [facility] Address [address] [place] [address] Phone [phone] Care Team Providers Care Microfilm Equipment Inspector Name Role Phone Marlon Santana DO Primary Care Provider + [phone] Reason for Referral * Evaluate & Treat - Unlimited Visits (Within 3 days (urgent)) - Pending Review Specialty Diagnoses / Procedures Referred By Contac t Referred To Contact Pain Management / Pain Medicine Diagnoses DDD (degenerative disc disease), lumbar Cropf, Jorgito Gregg PA-C [address] [place] [address] Referral ID Status Reason Start Date Expiration Date Visits Requested Visits Authorized [id number] Pending Review Specialty Services Required 11/23/2022 [id number] Question Answer Referral Priority Within 3 days (urgent) Reason for referral? Interventional Pain Management - (Injection) What condition is the patient being referred for? Back Axial What is the preferred location to have this test performed? [facility] Comments Please eval for caudal TEJ and also consider L4-5, L5-S1 Facet BLOCKS Patient Name: Collin Tony Date of : 1955 Department Phone Number: MRI or CT (if unable to have a MRI) is recommended if any of the following apply: 1. Patient has neck or back pain with radiation to extremities. A previous MRI will be accepted if symptoms unchanged since prior MRI. 2. Spinal surgery since last MRI. If yes, order a MRI with and without contrast. 3. Hx or ongoing cancer treatment. Patient will need spine x-ray (Ap/Lat) for axial neck or back pain if not done previously. Fax No. [facility] [phone] or contact desktop analyst [phone] Fax No. [facility] [phone] or contact desktop analyst [phone] Fax No. [facility] [phone] or contact desktop analyst [phone] Reason for Visit * Reason Comments Return Neuro * Evaluate & Treat - Unlimited Visits (Within 10 days (routine)) - Authorized Specialty Diagnoses / Procedures Referred By Lizet t Referred To Contact Neuro/Ortho Surgery - Spine. / Neurological Surgery Diagnoses Spinal stenosis of lumbar region with neurogenic claudication Marlon Santana, DO [address] [place] [address] Referral ID Status Reason Start Date Expiration Date Visits Requested Visits Authorized [id number] Authorized Specialty Services Required 11/15/2022 11/17/2023 [id number] Encounter Details Date Type Department Care Team (Late st Contact Info) Description 11/23/2022 2:15 PM EDT Office Visit Neurosurgery, [place] [address] [place] [address] Rell Cornejo MD [address], [place] [id number] DDD (degenerative disc disease), lumbar* Allergies No known active allergiesdocumented as of this encounter (statuses as of 02/15/2023) Medications Medication Sig Dispensed Refills Start Date [...] EVERY DAY 90 Tablet 3 3 Active Atorvastatin Calcium 20 MG Oral Tablet (Lipitor)Indicati ons:Dyslipidemia TAKE 1 TABLET BY MOUTH EVERY DAY 90 Tablet 1 3 Active amLODIPine Besylate 10 MG Oral Tablet (Norvasc)Indicati ons:HTN, goal below 130/80 TAKE 1 TABLET BY MOUTH EVERY DAY 90 Tablet 3 3 Active Gabapentin 300 MG Oral Capsule (Neurontin)Indica tions:Lumbar degenerative disc disease,Spinal stenosis of lumbar region with neurogenic claudication TAKE 1 CAPSULE BY MOUTH IN THE MORNING TAKE 2 CAPSULES AFTERNOON AND TAKE 2 CAPSULES IN THE EVENING 120 Capsule 5 3 Active Docusate Sodium 100 MG Oral Capsule (Colace)Indicatio ns:Narcotic bowel syndrome (HCC) Take 1 Capsule by mouth in the morning and 1 Capsule before bedtime. 180 Capsule 1 3 Active Folic Acid 1 MG Oral TabletIndications :Protein-calorie malnutrition, unspecified severity (HCC) TAKE 1 TABLET BY MOUTH EVERY DAY 90 Tablet 1 3 12/25/19 23 Discontinued oxyCODONE HCl 5 MG Oral Tablet (Oxy IR)Indications:Ce rvical myelopathy (HCC),Lumbar degenerative disc disease,Osteoarth ritis of spine with radiculopathy, cervical region Take 1 Tablet by mouth every 6 hours as needed for Pain, Severe. 120 Tablet 0 3 12/22/19 23 Discontinued(Ref ill) documented as of this encounter (statuses as of 02/15/2023) Active Problems Problem Noted Date Diagnosed Date COPD, group A, by GOLD 2017 classification 11/15 Overview: Per COPD GOLD Classification Protein-calorie malnutrition 11/11/2022 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 Cervical myelopathy 10/09/2021 Coronary artery disease invo lving hopland coronary artery without angina pectoris 10/08/2021 Preoperative [...] as of this encounter (statuses as of 02/15/2023) Resolved Problems Problem Noted Date Diagnosed Date [...] as of this encounter (statuses as of 02/15/2023) Immunizations Name Administration Dates Next Due COVID-19 [...] on file documented as of this encounter Last Filed Vital Signs Vital Sign Reading Time Taken Comments Blood Pressure 146/84 11/23/2022 2:24 PM EDT Pulse 72 11/23/2022 2:24 PM EDT Temperature 36.7 C (98 F) 11/23/2022 2:24 PM EDT Respiratory Rate - - Oxygen Saturation 97% 11/23/2022 2:24 PM EDT Inhaled Oxygen Concentration - - Weight 62.1 kg (137 lb) 11/23/2022 2:24 PM EDT Height 170.2 cm (5' 7") 11/23/2022 2:24 PM EDT Body Mass Index 21.46 11/23/2022 2:24 PM EDT documented in this encounter Functional Status Functional Status Response [...] as of this encounter Progress Notes * Jorgito Higginbotham PA-C - 11/23/2022 2:27 PM EDT Neurosurgery Clinic Note: [address] [address] 11/23/2022: 2:28 PM S/P Partial C2/C4 laminectomies, C3 laminectomy on (10/07/21) with Dr. Cornejo Collin Tony is a 67 year old male who presents today in follow up. Patient presents for evaluation of lumbar complaints. Patient has low back pain greater than lower extremity symptoms. Notes lower extremity claudicating type symptoms, but this is not from a neurogenic etiology. Patient family member would like to consider injections for his low back pain. He is currently undergoing evaluation for a right shoulder issue and rotator cuff tear. He will need to follow up with Orthopedics for this. There are no new problems. 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 Spinal. Fracture of rib of left side 08/2011 Tobacco abuse Past Surgical History: Past Surgical History: Procedure Laterality Date CAROTID (INTERNAL) ARTERY CATHETHER PLACEMENT Bilateral 06/29/2021 CATHETER PLACEMENT INTERNAL CAROTID ARTERY performed [place] Pan Jeffers [place] [facility] [place] CHEST TUBE INSERTION Right 04/18/2015 pnuemothorax, due to rt rib fx COLONOSCOPY, DIAGNOSTIC (RECTUM) 01/15/2020 hyperplastic polyp, repeat 5 yrs / COLONOSCOPY FLEXIBLE PROXIMAL DIAGNOSTIC performed by Lidia Mayers MD at [facility] EGD, FLEXIBLE, DIAGNOSTIC 01/15/2020 TA duodenal polyp / ESOPHAGOGASTRODUODENOSCOPY (EGD), FLEXIBLE, TRANSORAL, DIAGNOSTIC performed by Lidia Mayers MD at ENDOSCOPY [facility] EGD, FLEXIBLE, DIAGNOSTIC N/A 05/01/2020 adenomatous duodenal polyp, hiatal hernia, repeat 6 mo / ESOPHAGOGASTRODUODENOSCOPY (EGD), FLEXIBLE, TRANSORAL, DIAGNOSTIC performed by Augustin Bearden MD at [facility]OSCOPY [facility] EGD, FLEXIBLE, DIAGNOSTIC 11/12/2020 normal bx, hiatal hernia, repeat 1 yr / ESOPHAGOGASTRODUODENOSCOPY (EGD), FLEXIBLE, TRANSORAL, DIAGNOSTIC performed by Augustin Bearden MD at [facility]COPY [facility] INSERTION OF LENS PROSTHESIS Bilateral REMOVE NECK SPINE LAMINA, 1 SEG N/A 10/07/2021 LAMINECTOMY FACETECTOMY AND FORAMINOTOMY POSTERIOR CERVICAL performed by Rell Cornejo [facility] [place] [facility] [place] VERTEBRAL ARTERY CATHETER PLACEMENT Bilateral 06/29/2021 CATHETER PLACEMENT VERTEBRAL ARTERY, performed by Pan Jeffers MD [place] [facility] [place] Social History: Social History Socioeconomic History Marital status: Spouse name: Not on file Number of children: Not on file Years of education: Not on file Highest education level: Not on file Occupational History 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 Employer: [employer] [address] Tobacco Use Smoking status: Former Packs/day: 1.00 Years: 35.00 Pack years: 35.00 Types: Cigarettes Smokeless tobacco: Never Tobacco comments: quit august 05 Vaping Use Vaping Use: Never used Substance and Sexual Activity Alcohol use: Not Currently Alcohol/week: 5.0 standard drinks Types: 6 12 oz of beer per week Drug use: No Sexual activity: Not Currently Other Topics Concern Not on file Social History Narrative Not on file Social Determinants of Health Financial Resource Strain: Not on file Food Insecurity: No Food Insecurity Worried About Running Out of Food in the Last Year: Never true Ran Out of Food in the Last Year: Never true Transportation Needs: Not on file Physical Activity: Not on file Stress: Not on file Social Connections: Not on file Intimate Partner Violence: Not on file Housing Stability: Not on file Family History: Family History Problem Relation Age of Onset Heart disease Mother 90 Stroke Mother Lung cancer Father 69 Heart disease Sister valve Heart disease Brother Other (throat cancer) Brother No Past Hx None pt denies Current Medications: Current Outpatient Medications Medication Sig Dispense Refill Multi-Vitamins Oral Tablet Take 1 Tablet by mouth in the morning. Aspirin 81 MG Oral Tablet Delayed Release Take 1 Tablet by mouth in the morning. 90 Tablet 1 Folic Acid 1 MG Oral Tablet TAKE 1 TABLET BY MOUTH EVERY DAY 90 Tablet 1 Pantoprazole Sodium 40 MG Oral Tablet Delayed Release (Protonix) TAKE 1 TABLET BY MOUTH TWICE A [id number] Tablet 1 [facility] B-1 100 MG Oral Tablet (THIAMINE) TAKE 1 TABLET BY MOUTH EVERY DAY 90 Tablet 3 Atorvastatin Calcium 20 MG Oral Tablet (Lipitor) TAKE 1 TABLET BY MOUTH EVERY DAY 90 Tablet 1 amLODIPine Besylate 10 MG Oral Tablet (Norvasc) TAKE 1 TABLET BY MOUTH EVERY DAY 90 Tablet 3 Gabapentin 300 MG Oral Capsule (Neurontin) TAKE 1 CAPSULE BY MOUTH IN THE MORNING TAKE 2 CAPSULES AFTERNOON AND TAKE 2 CAPSULES IN THE EVENING 120 Capsule 5 Docusate Sodium 100 MG Oral Capsule (Colace) Take 1 Capsule by mouth in the morning and 1 Capsule before bedtime. 180 Capsule 1 oxyCODONE HCl 5 MG Oral Tablet (Oxy IR) Take 1 Tablet by mouth every 6 hours as needed for Pain, Severe. 120 Tablet 0 No current facility-administered medications for this visit. Allergies: Review of patient's allergies indicates: No Known Allergies ROS: As per HPI, all other negative BP 146/84 | Pulse 72 | Temp 36.7 C (98 F) | Ht 1.702 m (5' 7") | Wt 62.1 kg (137 lb) | SpO2 97%| BMI 21.46 kg/m | BSA 1.71 m PHYSICAL EXAMINATION: Neurologically stable AA&O No acute distress Follows all commands Pleasant and cooperative PERRL CN II-XII grossly intact Jose M spontaneously Strength IP Quad DF EHL PF LEFT 4+/5 4+/5 5/5 5/5 5/5 RIGHT 4/5 4/5 4-/5 4-/5 4+/5 Sensation grossly intact to LT IMAGING STUDIES: MRI lumbar spine shows secveral levels of DDD, DJD and varyoing degrees of foraminal stenosis that is worse at L4-5, L5-S1 IMPRESSION: 67 year old male returns for evaluation with back pain and claudicating symptoms. Will recommend pain management for caudal TEJ and possibly facet blocks. 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 This includes (on the same date of encounter) imaging review, chart review (to include prior related documentation), medication review, risk factors related to co-morbidities, education/discussion related to diagnosis/disease process (to include the natural disease progress or progression of traumatic injury), treatment options including conservative management (meds, physical therapy, interventional pain management, rehabilitation medicine), surgical options, and timing related to potential improvement in symptoms. PLAN: Pain management referral for caudal TEJ and consideration of L4-5, L5-S1 facet blocks RTC with no improvement Call [facility] clinic for questions or concerns Jorgito Higginbotham PA-C Department of Neurosurgery This note was dictated using the [employer] direct dictation system. There may be spelling errors, changes in the words dictated and words inserted into the note which may have been misinterpreted by the dictation system. These errors should not be used to change the meaning of the intended dictation. documented in this encounter Plan of Treatment Upcoming Encounters Date Type Department Care Team (Late st Contact Info) Description 03/23/2023 2:00 PM EST Office Visit General Internal Medicine [facility] [address] [place] [address] Osei Alexander MD [address] [facility] [place] [address] 06/14/2023 3:00 PM EDT Office Visit Cardiology, [facility] [address] [place] [address] Ana Lilia Graves CRNP [address] [place] [address] Scheduled Procedures Name Priority Associated Diagnoses Date/Ti me ESOPHAGOGASTRODUODENOSCOPY ( EGD), FLEXIBLE, TRANSORAL, DIAGNOSTIC Recall Adenomatous duodenal polyp COLONOSCOPY FLEXIBLE PROXIMAL DIAGNOSTIC Recall History of colon polyps Scheduled Referrals Name Type Priority Associated Diagnoses Orde r Schedule PAIN MEDICINE REFERRAL OP Referral Within 3 days (urgent) DDD (degenerative disc disease), lumbar Ordered: 11/23/2022 Health Maintenance Due Date Last Done Comments [...] this encounter Medical Devices Implanted Type Area Site Medical Director Device Identifier Shelf Expiration Date Model / Serial / Lot Clip Quick 2.8mm 230cm - [id number] Implanted:Qty: 1 on 05/01/2020 by Augustin Bearden MD at [facility]OSCOPY [facility] [employer] 06/04/2022 [id number] / [id number] documented as of this encounter Visit Diagnoses Diagnosis DDD (degenerative disc disease), lumbar- Primary Degeneration of lumbar or lumbosacral intervertebral disc documented in this encounter Advance Directives Latest [...] and were consensually agreed upon. Care Teams Microfilm Equipment Inspector Relationship Specialty Start Date End Date Marlon Santana DO PCP - General Family Medicine 01/07/19 01/18/23 documented as of this encounter
--- OUTSIDE RECORDS SUMMARY | 2023-05-08 05:39 | External Medical Summary ---
Author Name Unknown Address Unknown Organization K[facility] [address] [place] [address] Laboratory Report Ordering Provider Test Date Status CODY TIPTON 04/02/2023 14:03:43 Final Observation Date Value Abnormality Reference (Units ) Status CK 04/02/2023 14:03:43 33 Below low normal 39- 308 (U/L) Final Performing Location [facility] [address] [place] [address]
--- OUTSIDE RECORDS SUMMARY | 2023-05-08 05:39 | External Medical Summary | Summary of Care ---
Author Name Unknown Organization [facility] Address [address] [place] [address] Phone [phone] Care Team Providers Care Bill Board Poster Name Role Phone Unavailable Primary Care Provider Unavailabl e Reason for Referral * (Within 10 days (routine)) - Pending Review Specialty Diagnoses / Procedures Referred By Contac t Referred To Contact Radiology Diagnoses Skin lesion Procedures US EXTREMITY, NON-VASCULAR LIMITED Nora Espinosa MD [address] [place] [id number] Referral ID Status Reason Start Date Expiration Date V isits Requested Visits Authorized [id number] Pending Review 04/04/2023 999 999 Reason for Visit * Reason Comments NEW PATIENT Ear Pain Having pain in left hear, unable to hear out of it that well Skin Growth Has a hard lump/cyst on his right side, does have pain when he lays on it. Joint Pain Has pain in his righ t elbow when he leans on it or pushes on it. Encounter Details Date Type Department Care Team (Latest Contact Info) Description 03/31/2023 4:20 PM EST Office Visit General Internal Medicine [facility] [address] [place] [id number] Nora Espinosa MD [address] [place] [id number] Muscle weakness (generalized)*; COPD, group A, by GOLD 2017 classification (HCC); Cervical myelopathy (HCC); Myalgia; Coronary artery disease involving squaxin coronary artery of squaxin heart without angina pectoris; Deformity of right hip joint; DAVF (dural arteriovenous fistula); Dyslipidemia; HTN, goal below 130/80; Narcotic bowel syndrome (HCC); Osteoarthritis of spine with radiculopathy, cervical region; Other constipation; Peripheral vascular disease (HCC); History of tobacco abuse; Protein-calorie malnutrition, unspecified severity (HCC); Left cervical radiculopathy; Lumbar degenerative disc disease; Leg weakness, bilateral; Generalized weakness; Impaired fasting glucose; Skin lesion; Stage 3b chronic kidney disease (HCC); MEDICATION USE AGREEMENT; Encounter for therapeutic drug level monitoring; Impacted cerumen of left ear; Hypokalemia; Elevated sed rate Allergies No known active allergiesdocumented as of this encounter (statuses as of 04/10/2023) Medications Medication Sig Dispensed Refills Start Date [...] with CKD (chronic kidney disease) stage III (HCC),Microalbuminu fermin Take 1 Tablet by mouth in the morning. 90 Tablet 3 3 Active Folic Acid 1 MG Oral TabletIndications:P rotein-calorie malnutrition, unspecified severity (HCC) TAKE 1 TABLET [...] for neuropathy in feet 0 Active Tiotropium [place] Monohydrate 18 MCG Inhalation Capsule (Spiriva HandiHaler)Indicati ons:COPD, group A, by GOLD 2017 classification (HCC) Inhale 1 Capsule by mouth in the [...] as of this encounter (statuses as of 04/10/2023) Active Problems Problem Noted Date Diagnosed Date COPD, group A, by GOLD 2017 classification 11/15 Overview: Per COPD GOLD Classification Protein-calorie malnutrition 11/11/2022 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 Cervical myelopathy 10/09/2021 Coronary artery disease invo lving squaxin coronary artery without angina pectoris 10/08/2021 DAVF [...] as of this encounter (statuses as of 04/10/2023) Resolved Problems Problem Noted Date Diagnosed Date [...] as of this encounter (statuses as of 04/10/2023) Immunizations Name Administration Dates Next Due COVID-19 [...] Sign Reading Time Taken Comments Blood Pressure 128/58 03/31/2023 4:22 PM EST Pulse 89 03/31/2023 4:22 PM EST Temperature 37.4 C (99.3 F) 03/31/2023 4:22 PM ES T Respiratory Rate - - Oxygen Saturation 95% 03/31/2023 4:22 PM EST Inhaled Oxygen Concentration - - Weight 62.1 kg (137 lb) 03/31/2023 4:22 PM EST Height 170.2 cm (5' 7") 03/31/2023 4:22 PM EST Body Mass Index 21.46 03/31/2023 4:22 PM EST documented in this encounter Functional Status Functional [...] as of this encounter Progress Notes * Nora Espinosa MD - 03/31/2023 4:45 PM EST Images from the original note were not included. History of Present Illness Collin Tony is a 67 year old male that presents for NEW PATIENT, Ear Pain (Having pain in left hear, unable to hear out of it that well), Skin Growth (Has a hard lump/cyst on his right side, doeshave pain when he lays on it. ), and Joint Pain (Has pain in his right elbow when he leans on it orpushes on it. ) 67 year old YOmale with PMH significant for COPD, h/o tobacco abuse,. PVD, CAD w/o angina , cervical ddd S/p surgery with residual eft sides weakness with poor balance presents here for recheck. Acute concern :- -Has a hard lump/cyst on his right side, does have pain when he lays on it- 3 weeks , some better but painful and some discharge. Not sure how long but sleeps on that side due to weakness of left side -Has pain in his right elbow when he leans on it or pushes on it. -generalized weakness, lack of motivation and mostly weal chair bound . Sit all day as waling is difficult Interimmedical history : none Watching diet and exercise : yes Routine labs : due Routine HM : due for many Chronic medical problem: reviewed and significant for -weakness of legs and poor balance -wheelchair bound -cervical ddd with myelopathy - underwent surgery which dind't reverse all neuro deficit Ear Pain There is pain in the left ear. The current episode started in the past 7 days. The problem has beengradually worsening. There has been no fever. Associated symptoms include hearing loss, rhinorrhea and a sore throat. Pertinent negatives include no coughing, diarrhea, ear discharge or headaches. Hehas tried nothing for the symptoms. His past medical history is significant for hearing loss. Thereis no history of a chronic ear infection. Physical Exam Vitals: 03/31/23 1622 Temp: 37.4 C (99.3 F) Pulse: 89 SpO2: 95% BP: 128/58 BMI: 21.45 Physical Exam Vitals and nursing note reviewed. Constitutional: General: He is not in acute distress. Appearance: He is normal weight. HENT: Head: Normocephalic. Right Ear: Tympanic membrane, ear canal and external ear normal. There is no impacted cerumen. Left Ear: External ear normal. There is impacted cerumen. Nose: No congestion or rhinorrhea. Cardiovascular: Rate and Rhythm: Normal rate and regular rhythm. Pulmonary: Effort: Pulmonary effort is normal. No respiratory distress. Breath sounds: No wheezing. Abdominal: General: Bowel sounds are normal. There is no distension. Palpations: Abdomen is soft. There is no mass. Musculoskeletal: General: Tenderness (tenderenss in olecranon region wiht some fullness) present. No swelling or signs of injury. Cervical back: Neck supple. No rigidity. Skin: General: Skin is warm. Findings: Lesion (a raised hard to firm lesion on rt hip in trochanteric region , non-tender but with ulcer on top) present. No erythema or rash. Neurological: General: No focal deficit present. Mental Status: He is alert. Motor: No weakness. Psychiatric: Mood and Affect: Mood normal. I have reviewed the following results: CMP and CBC Assessment and Plan Muscle weakness (generalized) - 25-HYDROXY VITAMIN D; Future - LYME DISEASE ANTIBODY SCREEN WITH REFLEX TO CONFIRMATION; Future COPD, group A, by GOLD 2017 classification ([facility]) Albuterol prn - Tiotropium [place] Monohydrate 18 MCG Inhalation Capsule (Spiriva HandiHaler); Inhale 1 Capsule by mouth in the morning. For inhaler only, do not swallow.. 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, cervical region Other constipation Peripheral vascular disease (HCC) History of tobacco abuse Protein-calorie malnutrition, unspecified severity ([facility]) Encourage to eat more protein and 3 meals a day Left cervical radiculopathy Lumbar degenerative disc disease Leg weakness, bilateral - FOLIC ACID; Future - CK; Future - ERYTHROCYTE SEDIMENTATION RATE (ESR); Future Generalized weakness - COMPREHENSIVE METABOLIC PANEL; Future - CBC; Future - 25-HYDROXY VITAMIN D; Future - TSH WITH FREE T4 IF INDICATED; Future - ERYTHROCYTE SEDIMENTATION RATE (ESR); Future Impaired fasting glucose - HEMOGLOBIN A1C; Future Skin lesion - XR HIP UNILAT 2-3 VIEWS INCLUDING AP PELVIS; Future - US EXTREMITY, NON-VASCULAR LIMITED; Future Stage 3b chronic kidney disease (HCC) - COMPREHENSIVE METABOLIC PANEL; Future - PROTEIN/ CREATININE RATIO, URINE; Future MEDICATION USE AGREEMENT - PAIN MANAGEMENT DRUG PANEL, URINE W/ INTERPRETATION; Future Encounter for therapeutic drug level monitoring - PAIN MANAGEMENT DRUG PANEL, URINE W/ INTERPRETATION; Future Impacted cerumen of left ear - REMOVAL IMPACTED CERUMEN IRRIGATION/LAVAGE, UNILAT Hypokalemia - BASIC METABOLIC PANEL; Future - MAGNESIUM; Future Elevated sed rate - ERYTHROCYTE SEDIMENTATION RATE (ESR); Future - ANTINUCLEAR ANTIBODY (MISA) EIA SCREEN WITH REFLEX AB QUANT; Future - ANCA REFLEX PANEL; Future - LYME DISEASE ANTIBODY SCREEN WITH REFLEX TO CONFIRMATION; Future - CULTURE, BLOOD; Future Wrap-Up Time: I spent a total of 40-54 minutes (exact time 46 mins) on the date of service in preparation, delivery, and documentation of the care provided to Collin Tony excluding any time spent in the performance of separately billed services. documented in this encounter Nursing Notes * Ashley Wynn LPN - 03/31/2023 4:21 PM EST Chief Complaint Patient presents with NEW PATIENT Ear Pain Having pain in left hear, unable to hear out of it that well Skin Growth Has a hard lump/cyst on his right side, does have pain when he lays on it. Joint Pain Has pain in his right elbow when he leans on it or pushes on it. documented in this encounter Plan of Treatment Upcoming Encounters Date Type Department Care Team (Late st Contact Info) Description 04/11/2023 1:15 PM EST Imaging Radiology [facility] [address] [facility] [address] [address] 06/14/2023 3:00 PM EDT Office Visit Cardiology, [facility] [address] [address] Ana Lilia Graves CRNP [address] [facility] [place] [address] 07/07/2023 3:40 PM EDT Office Visit General Internal Medicine [facility] [address] [place] [address] Nora Espinosa MD [address] [facility] [place] [address] Scheduled Orders Name Type Priority Associated Diagnoses Orde r Schedule PROTEIN/ CREATININE RATIO, URINE Lab Routine Stage 3b chronic kidney disease (HCC) Expected: 03/31/2023 (Approximate), Expires: 03/30/2024 PAIN MANAGEMENT DRUG PANEL, URINE W/ INTERPRETATION Lab Routine MEDICATION USE AGREEMENT Encounter for therapeutic drug level monitoring Expected: 03/31/2023 (Approximate), Expires: 03/30/2024 BASIC METABOLIC PANEL Lab Routine Hypokalemia Expected: 04/10/2023, Expires: 04/02/2024 MAGNESIUM Lab Routine Hypokalemia Expected: 04/10/2023, Expires: 04/02/2024 ERYTHROCYTE SEDIMENTATION RATE (ESR) Lab Routine Elevated sed rate Expected: 04/10/2023, Expires: 04/02/2024 ANTINUCLEAR ANTIBODY (MISA) EIA SCREEN WITH REFLEX AB QUANT Lab Routine Elevated sed rate Expected: 04/10/2023, Expires: 04/02/2024 ANCA REFLEX PANEL Lab Routine Elevated sed rate Expected: 04/10/2023, Expires: 04/02/2024 LYME DISEASE ANTIBODY SCREEN WITH REFLEX TO CONFIRMATION Lab Routine Myalgia Muscle weakness (generalized) Elevated sed rate Expected: 04/10/2023, Expires: 04/02/2024 CULTURE, BLOOD Lab Routine Elevated sed rate Expected: 04/10/2023, Expires: 04/02/2024 US EXTREMITY, NON-VASCULAR LIMITED Medical Imaging Routine Skin lesion Expected: 04/04/2023, Expires: 05/04/2024 Scheduled Procedures Name Priority Associated Diagnoses Date/Ti [...] BY PFT 10/10/2021 COVID-19 Vaccine (4 - 2022- season) 2022 03/09/2021, 07/08/2020, 06/10/2020 [...] this encounter Medical Devices Implanted Type Area Manager Personal Device Identifier Shelf Expiration Date Model / Serial / Lot Clip Quick 2.8mm 230cm - [id number] Implanted:Qty: 1 on 05/01/2020 by Augustin Bearden MD at ENDOSCOPY [facility] [id number] 06/04/2022 [id number] / [id number] documented as of this encounter Procedures Procedure Name Priority Date/Time Associated Diagnosis Comments REMOVAL IMPACTED CERUMEN IRRIGATION/LAVAGE, UNILAT Routine 03/31/2023 Impacted cerumen of left ear documented in this encounter Results * XR HIP UNILAT 2-3 VIEWS INCLUDING AP PELVIS (04/02/2023 2:23 PM EST) Anatomical Region Laterality Modality Lower Extremity, Hip, Pelvis Com puted Radiography 04/02/2023 6:44 PM EST Impressions 04/02/2023 6:41 PM EST IMPRESSION 1. As above. Narrative 04/02/2023 6:41 PM EST EXAM RT LWREXT XR HIP UNILAT 2-3 VIEWS INCLUDING AP PELVIS - 04/02/2023 2:23 pm HISTORY a firm or hard lesion of 2 * 2 cm on rt hip hard to say if soft tissue or bone, r/o bone ca vs infected sebaceous cyst . pt sleeps on his rt side due to leg weakness COMPARISON None TECHNIQUE Radiography of the RT LWREXT was performed. FINDINGS No acute fracture or dislocation. Moderate to severe right hip degenerative changes and probable chronic femoroacetabular impingement. Chronic femoral head and acetabular irregularities/deformities. No destructive osseous lesion. Reported palpable area of concern is not definitively visualized on the dilated. Further characterization with targeted sonogram or cross-sectional imaging may be of benefit. Moderate left hip and [id number] bilateral SI joint degenerative changes. Procedure Note Loyd Kramer MD - 04/02/2023 EXAM RT LWREXT XR HIP UNILAT 2-3 VIEWS INCLUDING AP PELVIS - 04/02/2023 2:23pm HISTORY a firm or hard lesion of 2 * 2 cm on rt hip hard to say if soft tissueor bone, r/o bone ca vs infected sebaceous cyst . pt sleeps on his rtside due to leg weakness COMPARISON None TECHNIQUE Radiography of the RT LWREXT was performed. FINDINGS No acute fracture or dislocation. Moderate to severe right hipdegenerative changes and probable chronic femoroacetabular impingement.Chronic femoral head and acetabular irregularities/deformities. Nodestructive osseous lesion. Reported palpable area of concern is notdefinitively visualized on the dilated. Further characterization withtargeted sonogram or cross-sectional imaging may be of benefit. Moderateleft hip and [id number] bilateral SI joint degenerative changes. IMPRESSION IMPRESSION 1. As above. Nora Espinosa MD RADIOLOGY (RAD GENER AL) * (ABNORMAL) ERYTHROCYTE SEDIMENTATION RATE (ESR) (04/02/2023 2:03 PM EST) ESR 68(H) <20 mm/hour 04/02/2023 8:02 PM EST [facility]AT[facility] Blood Venous blood specimen / Unknown Venipuncture / Unknown 04/02/2023 2:03 PM EST 04/02/2023 2:03 PM EST Nora Espinosa MD LAB BLOOD ORDERABLES Performing Organization Address City/[facility]/ZIP Co de Phone Number [facility] [address] [place] [address] * (ABNORMAL) CK (04/02/2023 2:03 PM EST) CK 33(L) 39 - 308 U/L 04/02/2023 8:19 PM EST [facility] Blood Venous blood specimen / Unknown Venipuncture / Unknown 04/02/2023 2:03 PM EST 04/02/2023 2:03 PM EST Nora Espinosa MD LAB BLOOD ORDERABLES Performing Organization Address City/[facility]/ZIP Co de Phone Number [facility] [address] [place] [address] * TSH WITH FREE T4 IF INDICATED (04/02/2023 2:03 PM EST) TSH 2.22 0.27 - 4.20 uIU/mL 04/02/2023 8:59 PM EST [facility] Blood Venous blood specimen / Unknown Venipuncture / Unknown 04/02/2023 2:03 PM EST 04/02/2023 2:03 PM EST Nora Espinosa MD LAB BLOOD ORDERABLES Performing Organization Address City/[facility] Co de Phone Number [facility] [address] [place] [address] * 25-HYDROXY VITAMIN D (04/02/2023 2:03 PM EST) 25-Hydroxy Vitamin D 34 >19 ng/mL 04/02/2023 8:59 PM EST [facility] Blood Venous blood specimen / Unknown Venipuncture / Unknown 04/02/2023 2:03 PM EST 04/02/2023 2:03 PM EST Narrative [facility] - 04/02/2023 8:59 PM EST Deficient: <20 ng/mL Insufficient: 20-29 ng/mL Recommended/Optimum:30-50 ng/mL Vitamin D intoxication is rare. If suspicious of Vitamin D toxicity, evaluation of serum Calcium and PTH is recommended. Nora Espinosa MD LAB BLOOD ORDERABLES Performing Organization Address City/[facility]/ZIP Co de Phone Number [facility] [address] [place] [address] * FOLIC ACID (04/02/2023 2:03 PM EST) Folic Acid >20.0 >4.5 ng/mL 04/02/2023 8:59 PM EST [facility] Blood Venous blood specimen / Unknown Venipuncture / Unknown 04/02/2023 2:03 PM EST 04/02/2023 2:03 PM EST Nora Espinosa MD LAB BLOOD ORDERABLES Performing Organization Address [facility]/ZIP Co de Phone Number [facility] [address] [place] [address] * (ABNORMAL) CBC (04/02/2023 2:03 PM EST) WBC 13.04(H) 4.00 - 10.80 K/uL 04/02/2023 2:29 PM EST LABORATORY [facility] 57-10 RBC 4.65 4.50 - 5.25 M/uL 04/02/2023 2:29 PM EST LAB[facility]ATORY [place] 57-10 HGB 13.8(L) 14.0 - 16.8 g/dL 04/02/2023 2:29 PM EST LAB[facility] [place] [facility] 57-10 HCT 41.9 40.0 - 48.4 % 04/02/2023 2:29 PM EST LAB[facility] [place] [facility] 57-10 MCV 90.1 82.0 - 99.5 fL 04/02/2023 2:29 PM EST LAB[facility] [place] [facility] 57-10 MCH 29.7 27.0 - 34.0 pg 04/02/2023 2:29 PM EST [facility] 57-10 MCHC 32.9 32.0 - 36.0 g/dL 04/02/2023 2:29 PM EST [facility] 57-10 RDW 14.3 11.5 - 15.5 % 04/02/2023 2:29 PM EST [facility] 57-10 PLT 569(H) 140 - 400 K/uL 04/02/2023 2:29 PM EST [facility] 57-10 MPV 10.2 6.6 - 11.1 fL 04/02/2023 2:29 PM EST [facility] 57-10 Blood Venous blood specimen / Unknown Venipuncture / Unknown 04/02/2023 2:03 PM EST 04/02/2023 2:03 PM EST Nora Espinosa MD LAB BLOOD ORDERABLES LABORATORY [facility] [facility] [place] [address] * HEMOGLOBIN A1C (04/02/2023 2:03 PM EST) Hemoglobin A1C 5.5 4.0 - 5.6 % 04/02/2023 8:10 PM EST [facility] Comment:The use of HbA1c to monitor glycemic status is based on normal hemoglobin and HbA composition. This test should not be used in patients with abnormal hemoglobin that affects the half life of the red blood cell or the in vivo glycation rates. Estimated Average Glucose 111 <126 mg/dL 04/02/2023 8:10 PM EST [facility] Blood Venous blood specimen / Unknown Venipuncture / Unknown 04/02/2023 2:03 PM EST 04/02/2023 2:03 PM EST Nora Espinosa MD LAB BLOOD ORDERABLES [facility] [address] [facility] [place] [address] * (ABNORMAL) COMPREHENSIVE METABOLIC PANEL (04/02/2023 2:03 PM EST) Pathologist [facility] BUN 15 6 - 20 mg/dL 04/02/2023 2:57 PM EST [facility] [place] 57[facility]10 Creatinine 1.8(H) 0.6 - 1.2 mg/dL 04/02/2023 2:57 PM EST LAB[facility] [place] 57-10 Estimated Glomerular Filtration Rate 42(L) >=60 mL/min 04/02/2023 2:57 PM EST [facility] [place] [facility] 57-10 Comment:eGFR is calculated b ased on the CKD-EPI 2020 equation Sodium 141 135 - 146 mmol/L 04/02/2023 2:57 PM EST [facility] [place] [facility] 57-10 Potassium 3.3(L) 3.5 - 5.1 mmol/L 04/02/2023 2:57 PM EST [facility] [place] [facility] 57[facility]10 Chloride 102 98 - 107 mmol/L 04/02/2023 2:57 PM EST [facility] [place] [facility] 57-10 CO2 20(L) 22 - 32 mmol/L 04/02/2023 2:57 PM EST [facility] [place] [facility] 57[facility]10 Anion Gap 19(H) 7 - 15 mmol/L 04/02/2023 2:57 PM EST [facility] [place] [facility] 57-10 Glucose 100 70 - 120 mg/dL 04/02/2023 2:57 PM EST [facility] 57-10 Albumin 3.7(L) 3.8 - 5.0 g/dL 04/02/2023 2:57 PM EST [facility] 57-10 AST 16 10 - 50 U/L 04/02/2023 2:57 PM EST [facility] [place] [facility] 57-10 Alkaline Phosphatase 102 35 - 130 U/L 04/02/2023 2:57 PM EST [facility] [place] [facility] 57-10 Bilirubin, Total 0.4 <=1.2 mg/dL 04/02/2023 2:57 PM EST [facility] [place] [facility] 57-10 Calcium 9.5 8.4 - 10.2 mg/dL 04/02/2023 2:57 PM EST [facility] [place] [facility] 57[facility]10 Protein 6.7 6.0 - 8.3 g/dL 04/02/2023 2:57 PM EST LAB[facility] [place] [facility] 57-10 ALT 17 10 - 50 U/L 04/02/2023 2:57 PM EST [facility] [place] [facility] 57-10 Blood Venous blood specimen / Unknown Venipuncture / Unknown 04/02/2023 2:03 PM EST 04/02/2023 2:03 PM EST Nora Espinosa MD LAB BLOOD ORDERABLES [facility]AT[facility] [id number] [place] [address] * REMOVAL IMPACTED CERUMEN IRRIGATION/LAVAGE, UNILAT (03/31/2023) Narrative Ashley Wynn LPN - 03/31/2023 Cerumen irrigation performed as ordered, left ear(s) flushed with Warm H2O with H2O2 (peroxide) until clear. Ashley Wynn LPN 03/31/2023 Nora Espinosa MD SURGERY documented in this encounter Visit Diagnoses Diagnosis Muscle weakness (generalized)- Primary COPD, group A, by GOLD 2017 classification (HCC) Cervical myelopathy (HCC) Cervical spondylosis with myelopathy Myalgia Mylagia and myositis, unspecified Coronary artery disease involving squaxin coronary artery of squaxin heart without angina pectoris Deformity of right hip joint DAVF (dural arteriovenous fistula) Cerebral aneurysm, nonruptured Dyslipidemia Other and unspecified hyperlipidemia HTN, goal below 130/80 Unspecified essential hypertension Narcotic bowel syndrome (HCC) Osteoarthritis of spine with radiculopathy, cervical region Other constipation Peripheral vascular disease (HCC) Peripheral vascular disease, unspecified History of tobacco abuse Personal history of tobacco use, presenting hazards to health Protein-calorie malnutrition, unspecified severity (HCC) Left cervical radiculopathy Brachial neuritis or radiculitis nos Lumbar degenerative disc disease Degeneration of lumbar or lumbosacral intervertebral disc Leg weakness, bilateral Other musculoskeletal symptoms referable to limbs Generalized weakness Other malaise and fatigue Impaired fasting glucose Skin lesion Unspecified disorder of skin and subcutaneous tissue Stage 3b chronic kidney disease (HCC) MEDICATION USE AGREEMENT Encounter for therapeutic drug level monitoring Encounter for therapeutic drug monitoring Impacted cerumen of left ear Impacted cerumen Hypokalemia Hypopotassemia Elevated sed rate Elevated sedimentation rate Cervical myelopathy (HCC) Cervical spondylosis with myelopathy S/P cervical spinal fusion Arthrodesis status Examination following surgery Follow-up examination, following unspecified surgery Skin lesion Unspecified disorder of skin and subcutaneous tissue Deformity of right hip joint documented in this encounter Advance Directives Latest [...]
--- OUTSIDE RECORDS SUMMARY | 2023-05-08 05:39 | External Medical Summary ---
Author Name Unknown Address Unknown Organization [id number]:LABORATORY [facility] - [address] [place] [address] Laboratory Report Ordering Provider Test Date Status CODY TIPTON 04/11/2023 13:44:02 Final Observation Date Value Abnormality Reference (Units ) Status Neutrophil cytoplasmic Ab [Presence] in Serum by Immunofluorescence 04/11/2023 13:44:02 Negative Negative Final Neutrophil cytoplasmic Ab [Presence] in Serum by Immunofluorescence 04/11/2023 13:44:02 Negative Negative Final Negative for ANCA. Performing Location LABORATORY [facility] - [address] [place] [address]
--- OUTSIDE RECORDS SUMMARY | 2023-05-08 05:39 | External Medical Summary ---
Author Name Unknown Address Unknown Organization [id number]:[facility] [place] [address] [place] [address] Laboratory Report Ordering Provider Test Date Status SAEEDREEMATODD 04/02/2023 14:03:43 Final Observation Date Value Abnormality Reference (Units ) Status Erythrocyte sedimentation rate by Photometric method 04/02/2023 14:03:43 68 Above high normal <20 (mm/hour) Final Performing Location LAB[facility]ORY [facility] - [address] [place] [address]
--- OUTSIDE RECORDS SUMMARY | 2023-05-08 05:39 | External Medical Summary | Summary of Care ---
Author Name Unknown Organization [facility] Address [address] [facility] [place] [address] Phone [phone] Care Team Providers Care Security Solutions Engineer Name Role Phone Unavailable Primary Care Provider Unavailabl e Encounter Details Date Type Department Care Team (Late st Contact Info) Description 04/02/2023 Orders Only PATIENT PORTAL DO NOT DELETE THIS DEPT USED BY [place] [id number] Allergies No known active allergiesdocumented as of this encounter (statuses as of 04/02/2023) Medications Medication Sig Dispensed Refills Start Date [...] for neuropathy in feet 0 Active Tiotropium [place] Monohydrate 18 MCG Inhalation Capsule (Spiriva HandiHaler)Indicatio [...] as of this encounter (statuses as of 04/02/2023) Active Problems Problem Noted Date Diagnosed Date COPD, group A, by GOLD 2017 classification 11/15 Overview: Per COPD GOLD Classification Protein-calorie malnutrition 11/11/2022 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 Cervical myelopathy 10/09/2021 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 10/08/2021 DAVF [...] as of this encounter (statuses as of 04/02/2023) Resolved Problems Problem Noted Date Diagnosed Date [...] as of this encounter (statuses as of 04/02/2023) Immunizations Name Administration Dates Next Due COVID-19 [...] 06/14/2023 3:00 PM EDT Office Visit Cardiology, [facility] [address] [place] [address] Ana Lilia Graves CRNP [address] [place] [address] 07/07/2023 3:40 PM EDT Office Visit General Internal Medicine [facility] [place] [facility] [address] Nora Espinosa MD [address] [place] [address] Scheduled Procedures Name Priority Associated Diagnoses Date/Ti [...] this encounter Medical Devices Implanted Type Area Named Account Executive Device Identifier Shelf Expiration Date Model / Serial / Lot Clip Quick 2.8mm 230cm - [id number] Implanted:Qty: 1 on 05/01/2020 by Augustin Bearden MD at ENDOSCOPY [facility] 06/04/2022 [id number]-202UR.A / / [id number] [...]
--- OUTSIDE RECORDS SUMMARY | 2023-05-08 05:39 | External Medical Summary | Summary of Care ---
Author Name Unknown Organization [facility] Address [address] [place] [address] Phone [phone] Care Team Providers Care Glass Vial Filler Name Role Phone Unavailable Primary Care Provider Unavailabl e Reason for Visit * Reason Comments Outpatient Testing Encounter Details Date Type Department Care Team (Late st Contact Info) Description 04/02/2023 2:00 PM EST Laboratory Laboratory, [facility] [id number] [facility] 132 [place] [address] Encounter for long-term (current) use of medications; Benign hypertension with CKD (chronic kidney disease) stage III (HCC); Microalbuminuria; HTN, goal below 130/80; Generalized weakness; Stage 3b chronic kidney disease (HCC); Impaired fasting glucose; Leg weakness, bilateral; Myalgia; Muscle weakness (generalized) Allergies No known active allergiesdocumented as of [...] for neuropathy in feet 0 Active Tiotropium [place] Monohydrate 18 MCG Inhalation Capsule (Spiriva HandiHaler)Indicatio [...] myelopathy 10/09/2021 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 10/08/2021 DAVF [...] 06/14/2023 3:00 PM EDT Office Visit Cardiology, [facility] [address] [place] [address] Ana Lilia Graves CRNP [address] [place] [address] 07/07/2023 3:40 PM EDT Office Visit General Internal Medicine [facility] [place] [address] [facility] [place] [address] Nora Espinosa MD [address] [facility] [place] [address] Pending Results Name Type Priority Associated Diagnoses Date /Time LIPID PANEL WITH DIRECT LDL IF TG IS HIGH Lab Routine Encounter for long-term (current) use of medications 04/02/2023 2:03 PM EST COMPREHENSIVE METABOLIC PANEL Lab Routine HTN, goal below 130/80 Generalized weakness Stage 3b chronic kidney disease (HCC) 04/02/2023 2:03 PM EST HEMOGLOBIN A1C Lab Routine Impaired fasting glucose 04/02/2023 2:03 PM EST FOLIC ACID Lab Routine Leg weakness, bilateral 04/02/2023 2:03 PM EST 25-HYDROXY VITAMIN D Lab Routine Generalized weakness Myalgia Muscle weakness (generalized) 04/02/2023 2:03 PM EST TSH WITH FREE T4 IF INDICATED Lab Routine Generalized weakness 04/02/2023 2:03 PM EST CK Lab Routine Leg weakness, bilateral 04/02/2023 2:03 PM EST ERYTHROCYTE SEDIMENTATION RATE (ESR) Lab Routine Leg weakness, bilateral Generalized weakness 04/02/2023 2:03 PM EST Scheduled Procedures Name Priority Associated [...] this encounter Medical Devices Implanted Type Area Superintendent Stations Device Identifier Shelf Expiration Date Model / Serial / Lot Clip Quick 2.8mm 230cm - [id number] Implanted:Qty: 1 on 05/01/2020 by Augustin Bearden MD at ENDOSCOPY [facility] [address] [employer] [facility] 06/04/2022 HX-202UR.A / / [id number] documented as of this encounter Procedures Procedure Name Priority Date/Time Associated Diagnosis Comments CBC Routine 04/02/2023 2:03 PM EST Generalized weakness documented in this encounter Results * (ABNORMAL) CBC (04/02/2023 2:03 PM EST) [...] pg 04/02/2023 2:29 PM EST [facility] [place] 57-10 MCHC 32.9 32.0 - 36.0 g/dL 04/02/2023 2:29 PM EST [facility] [place] 57-10 RDW 14.3 11.5 - 15.5 % 04/02/2023 2:29 PM EST [facility] [place] 57-10 PLT 569(H) 140 - 400 K/uL 04/02/2023 2:29 PM EST [facility] [place] 57-10 MPV 10.2 6.6 - 11.1 fL 04/02/2023 2:29 PM EST [facility] [place] 57-10 Blood Venous blood specimen / Unknown Venipuncture / Unknown 04/02/2023 2:03 PM EST 04/02/2023 2:03 PM EST Nora Espinosa MD LAB BLOOD ORDERABLES Performing Organization Address City/State/[facility] Co de Phone Number [facility] [place] [address] [place] [address] [place] [address] documented in this encounter Visit Diagnoses Diagnosis Encounter for long-term (current) use of medications Encounter for long-term (current) use of other medications Benign hypertension with CKD (chronic kidney disease) stage III (HCC) Benign hypertensive kidney disease with chronic kidney disease stage I through stage IV, or unspecified Microalbuminuria Proteinuria HTN, goal below 130/80 Unspecified essential hypertension Generalized weakness Other malaise and fatigue Stage 3b chronic kidney disease (HCC) Impaired fasting glucose Leg weakness, bilateral Other musculoskeletal symptoms referable to limbs Myalgia Mylagia and myositis, unspecified Muscle weakness (generalized) documented in this encounter Advance Directives Latest [...]
--- OUTSIDE RECORDS SUMMARY | 2023-05-08 05:40 | External Medical Summary | Summary of Care ---
Author Name Unknown Organization [facility] Address [address] [place] [address] Phone [phone] Care Team Providers Care Training Program Assistant Name Role Phone Marlon Santana DO Primary Care Provider Reason for Visit * Reason Comments eRx-Medication Refill Encounter Details Date Type Department Care Team Description 12/24/[address] [facility] [address] [facility] [place] [address] Marlon Santana DO [address] [place] [id number] Protein-calorie malnutrition, unspecified severity (HCC) Allergies No known active allergiesdocumented as of this encounter (statuses as of 12/24/2022) Medications Medication Sig Dispensed Refills Start Date [...] the morning. 90 Tablet 3 11/27/2022 Active oxyCODONE HCl 5 MG Oral Tablet (Oxy IR)Indications:Ce rvical myelopathy (HCC),Lumbar degenerative disc disease,Osteoarth ritis of spine with radiculopathy, cervical region Take 1 Tablet by mouth every 6 hours as needed for Pain, Severe. 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 HTN, goal below 130/80 01/20/2020 Dyslipidemia 01/20/2020 Peripheral vascular disease 01/17/2020 Lumbar degenerative disc disease 020 Osteoarthritis of spine with radiculopat hy, cervical region 08/31/2019 Left cervical radiculopathy 08/31/2019 Other constipation 08/31/2019 ADVANCE DIRECTIVE INFORMATION 01/10/2008 Overview: No, Advance Directive brochure given to patient. Tobacco abuse documented as of this encounter (statuses as of 12/24/2022) Resolved Problems Problem Noted Date Resolved Date COPD (chronic obstructive pulmonary disease) 06/202111/18/2022 Overview: Per COPD GOLD Classification Stage 3a chronic kidney disease 01/14/2020 01/17/2020 Overview: Per CKD protocol - Per CKD protocol Kidney disease, chronic, stage III (GFR 30-59 ml /min) 08/13/2019 01/17/2020 Overview: Per CKD protocol Fracture of rib of left side 08/06/2011 NO KNOWN PROBLEMS 11/30/2006 10/27/2011 documented as of this encounter (statuses as of 12/24/2022) Immunizations Name Administration Dates Next Due COVID-19 mRNA, LNP-s, No Pre serve, 2-Dose Series (Moderna) 07/08/2020,06/10/2020 COVID-19, mRNA, LNP-s, PF, B ooster, 100mcg/0.5mg (Moderna) 03/09/2021 Pneumococcal Polysaccharide PPV23 (Pneumovax) 01/07/2019,03/14/2009(Deferred: Patient Refused) SEASONAL INFLUENZA, PF, 6 M & Above, IM , (FLULAVAL or FLUZONE) 01/14/2021,11/22/2019 TDAP (age 11 and older)(Adacel) 06/17/2008 documented as of this encounter Social History Tobacco Use Types Packs/Day Years Used Date Smoking Tobacco: Former Cigarettes 1 35 Smokeless Tobacco: Never Comments:quit august 05 Alcohol Use Standard Drinks/Week Comments Not Currently 5 (1 standard drink = 0.6 oz pur e alcohol) Food Insecurity Answer Date Recorded Within the past 12 months, y ou worried that your food would run out before you got money to buy more. Never true 11/11/2022 Within the past 12 months, t he food you bought just didn't last and you didn't have money to get more. Never true 11/11/2022 Sex Assigned at Date Recorded Male 12/24/2019 2:22 PM E DT Job Start Date Occupation Industry Not on [...] or making decisions? (5 years old or older No 10/07/2021 documented as of this encounter Miscellaneous Notes * Telephone Encounter - Cally Bates RPh - 12/24/2022 11:57 AM EDTSigned Prescriptions: Disp Refills Folic Acid 1 MG Oral Tablet 90 Tab*1 Sig: TAKE 1 TABLET BY MOUTH EVERY DAYAuthorizing Provider: Lilian SANTANA User: CALLY BATES documented in this encounter Plan of Treatment Upcoming Encounters Date Type Specialty Care Team Description 03/23/2023 Office Visit [facility] [address] [facility] [address] 06/14/2023 Office Visit Cardiology Ana Lilia Graves CRNP [address] [place] [address] Scheduled Procedures Name Priority Associated Diagnoses Date/Ti [...] this encounter Medical Devices Implanted Type Area News Specialist Device Identifier Shelf Expiration Date Model / Serial / Lot Clip Quick 2.8mm 230cm - [id number] Implanted:Qty: 1 on 05/01/2020 by Augustin Bearden MD at [facility]COPY [facility] [employer] [facility] 06/04/2022 HX-202UR.A / / [id number] documented as of this encounter Visit Diagnoses Diagnosis Protein-calorie malnutrition, unspecified severity (HCC) documented in this encounter Advance Directives [...] and were consensually agreed upon. Care Teams Training Program Assistant Relationship Specialty Start Date End Date Marlon Santana DO [address] [place] [address] PCP - General Family Medicine 01/07/19 documented as of this encounter
--- OUTSIDE RECORDS SUMMARY | 2023-05-08 05:40 | External Medical Summary | Summary of Care ---
Author Name Unknown Organization [facility] Address [address] [place] [address] Phone [phone] Care Team Providers Care Component Technician Name Role Phone Marlon Santana DO Primary Care Provider [phone] Encounter Details Date Type Department Care Team Description 11/29/2022 Patient Reported Data Patient Survey Ortho [facility] Allergies No known active allergiesdocumented as of this encounter (statuses as of 11/29/2022) Medications Medication Sig Dispensed Refills Start Date End Date Status Multi-Vitamins Oral Tablet Take 1 Tablet by mouth in the morning. 0 Active Aspirin 81 MG Oral Tablet Delayed ReleaseIndications:P eripheral vascular disease (HCC) Take 1 Tablet by mouth in the morning. 90 Tablet 1 10/13/2021 Active Folic Acid 1 MG Oral TabletIndications:Pr otein-calorie malnutrition, unspecified severity (HCC) TAKE 1 TABLET BY MOUTH EVERY DAY 90 Tablet 1 07/29/2022 Active Pantoprazole Sodium 40 MG Oral Tablet [...] 09/15/2022 Active Gabapentin 300 MG Oral Capsule (Neurontin)Indicatio [...] before bedtime. 180 Capsule 1 10/29/2022 Active oxyCODONE HCl 5 MG Oral Tablet (Oxy IR)Indications:Cervi angela myelopathy (HCC),Lumbar degenerative disc disease,Osteoarthrit is of spine with radiculopathy, cervical region Take 1 Tablet by mouth every 6 hours as needed for Pain, Severe. 120 Tablet 0 11/11/2022 Active Lisinopril 10 MG Oral Tablet (Prinivil)Indication s:Benign hypertension with CKD (chronic kidney disease) stage III (HCC),Microalbuminur ia Take 1 Tablet by mouth in the morning. 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 10/08/2021 Preoperative [...] as of this encounter (statuses as of 11/29/2022) Resolved Problems Problem Noted Date Resolved Date [...] as of this encounter (statuses as of 11/29/2022) Immunizations Name Administration Dates Next Due COVID-19 mRNA, LNP-s, No Pre serve, 2-Dose Series (Moderna) 07/08/2020,06/10/2020 COVID-19, mRNA, LNP-s, PF, B ooster, 100mcg/0.5mg (Moderna) 03/09/2021 Pneumococcal Polysaccharide PPV23 (Pneumovax) 01/07/2019,03/14/2009(Deferred: Patient Refused) Seasonal Influenza, PF, 6 mo ns & Above, IM , (Flulaval) 01/14/2021,11/22/2019 TDAP (age 11 and older)(Adacel) 06/17/2008 [...] Encounters Date Type Specialty Care Team Description 12/13/2022 Office Visit Orthopedics Farrukh Toure MD [address] [place] [address] 01/11/2023 Office Visit Cardiology Ana Lilia Graves CRNP [address] [place] [address] 01/12/2023 Office Visit Pain Medicine Selina Myers PA-C [address] [place] [address] Scheduled Procedures Name Priority Associated Diagnoses Date/Ti [...] 65+ Years (2 - PCV) 01/08/2020 01/07/2019 COVID-19 Vaccine (4 - Moderna series) 05/04/2021 03/09/2021, 07/08/2020, 06/10/2020 *COPD SEVERITY VERIFIED BY PFT 10/10/2021 Influenza Vaccine (FLU shot) (#1) 2022 01/14/2021, [...] this encounter Medical Devices Implanted Type Area Pick Up Operator Device Identifier Shelf Expiration Date Model / Serial / Lot Clip Quick 2.8mm 230cm - [id number] Implanted:Qty: 1 on 05/01/2020 by Augustin Bearden MD at ENDOSCOPY [facility] [employer] [facility] 06/04/2022 HX-202UR.A / / [id number] documented [...] and were consensually agreed upon. Care Teams Component Technician Relationship Specialty Start Date End Date Marlon Santana DO [address] [place] [address] PCP - General Family Medicine 01/07/19 documented as of this encounter
--- OUTSIDE RECORDS SUMMARY | 2023-05-08 05:40 | External Medical Summary | Summary of Care ---
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 10/08/2021 Preoperative [...] Toure MD [address] [place] [address] 01/11/2023 Office Visit Cardiology Ana Lilia Graves CRNP [address] [place] [address] 01/12/2023 Office Visit Pain Medicine Selina Myers PA-C [address] [place] [address] Scheduled Procedures Name Priority Associated Diagnoses Date/Ti [...] this encounter Medical Devices Implanted Type Area Property Clerk Device Identifier Shelf Expiration Date Model / Serial / Lot Clip Quick 2.8mm 230cm - [id number] Implanted:Qty: 1 on 05/01/2020 by Augustin Bearden MD at ENDOSCOPY [facility] [employer] [facility] 06/04/2022 HX-202UR.A / / [id number] [...] and were consensually agreed upon. Care Teams Office Spec Relationship Specialty Start Date End Date Marlon Santana DO [address] [place] [address] PCP - General Family Medicine 01/07/19 documented as of this encounter
--- OUTSIDE RECORDS SUMMARY | 2023-05-08 05:40 | External Medical Summary | Summary of Care ---
Author Name Unknown Organization [facility] Address [address] [place] [address] Phone [phone] Care Team Providers Care Zoology Teacher Name Role Phone Marlon Santana DO Primary Care Provider Reason for Visit * Reason Comments NEW PATIENT R shoulder pain x 1 month Encounter Details Date Type Department Care Team Description 12/13/2022 Office Visit Orthopaedics [facility] [address] [place] [address] Farrukh Toure MD [address] [place] [address] Rotator cuff arthropathy of right shoulder* Allergies No known active allergiesdocumented as of this encounter (statuses as of 12/13/2022) Medications Medication Sig Dispensed Refills Start Date [...] the morning. 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 Cervical myelopathy 10/09/2021 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 Consult requested by Self. Collin Tony is here with his/her History: Level of pain: reviewed and agree with Nursing Notes for HPI elements History - presents today for R shoulder pain [...] he would like to try steroid injection. ROS: ROS per HPI otherwise non-contributory Past [...] level: Not on file Occupational History Occupation: [email or web address] Employer: [employer] [place] [address] Tobacco Use Smoking status: Former Packs/day: 1.00 [...] with internal rotation Apley Strength 4/5 diffusely Assessment and Plan: 1) right shoulder pain [...] steroid injection. Glenohumeral joint steroid injection performed today with ultrasound guidance Telephone encounter in 3-4 weeks to see how he is doing Procedure note (shoulder glenohumoral joint injection) on right: Note: Injection was completed with the patient seated in his wheelchair do difficulty with transfer, which provided less than optimal position compared to typical lateral decubitus, however, injection was still performed with medication seen entering the glenohumeral joint. Time out: Prior to injection, a time out was called to confirm the administration of appropriate medicine, patient name, procedure and confirm to the best of our ability and knowledge the presence of any necessary risks and benefits. Patient verbalizes understanding. Ultrasound utilized to guide injection Ultrasound required due to: need to visualize specific joint recess Sterile techinique applied. Skin sterilized with betadine and cleaned with alcohol swab. Glenohumoral joint injected using 3.5 inch, 22 gauge needle. Injected with 1 ml lidocaine [...] Toure MD Primary Care Sports Medicine Orthopaedics [place] [address] documented in this encounter Nursing Notes * TERE Dunham - 12/13/2022 1:29 PM EDT Pt presents today for R shoulder pain Referred by Dr. Yuan for shoulder injection Pt is RHD TERE Dunham documented in this encounter Plan of Treatment Upcoming Encounters Date Type Specialty Care Team Description 01/11/2023 Office Visit Cardiology Ana Lilia Graves CRNP [address] [place] [address] 01/12/2023 Office Visit Pain Medicine Day, SULEIMAN Marks [address] [place] [address] Scheduled Procedures Name Priority Associated Diagnoses Date/Ti [...] this encounter Medical Devices Implanted Type Area Senior Catering Sales Manager Device Identifier Shelf Expiration Date Model / Serial / Lot Clip Quick 2.8mm 230cm - [id number] Implanted:Qty: 1 on 05/01/2020 by Augustin Bearden MD at ENDOSCOPY [facility] [employer] 06/04/2022 HX-202UR.A / / [id number] documented as of this encounter Procedures Procedure Name Priority Date/Time Associated Diagnosis Comments POINT OF CARE US MAJOR JOINT INJECTION, ORTHO Routine 12/13/2022 12:53 PM EDT Rotator cuff arthropathy of right shoulder documented in this encounter Results * POINT OF CARE US MAJOR JOINT INJECTION, ORTHO (12/13/2022 12:53 PM EDT) Anatomical Region Laterality Modality Musculoskeletal Radiographic Janel ging 12/13/2022 12:5 3 PM EDT Narrative 12/13/2022 2:03 PM EDT [facility] [employer] [facility] - [facility]ound [facility] Exam Date: 12/13/2022 Exam Type: Ortho Color Dipper: Farrukh Toure Attending: Farrukh Toure Worksheet: Ortho Injection Exam Information: Impression: Procedure note (shoulder glenohumoral joint injection) on right: Note: Injection was completed with the patient seated in his wheelchair do difficulty with transfer, which provided less than optimal position compared to typical lateral decubitus, however, injection was still performed with medication seen entering the glenohumeral joint. Time out: Prior to injection, a time out was called to confirm the administration of appropriate medicine, patient name, procedure and confirm to the best of our ability and knowledge the presence of any necessary risks and benefits. Patient verbalizes understanding. Ultrasound utilized to guide injection Ultrasound required due to: need to visualize specific joint recess Sterile techinique applied. Skin sterilized with betadine and cleaned with alcohol swab. Glenohumoral joint injected using 3.5 inch, 22 gauge needle. Injected with 1 ml lidocaine [...] with ice and resolve within 24 hours. Physician Signature: I reviewed the images and approve the documentation above.: Signed by Farrukh Toure on Tuesday, December 13, 2022 at 2:03:34 PM Procedure Note Farrukh Toure MD - 12/13/2022 [facility] - Ultrasound Program Exam Date: 12/13/2022 Exam Type: Ortho Color Dipper: Farrukh Toure Attending: Farrukh Toure Worksheet: Ortho Injection Exam Information: Impression: Procedure note (shoulder glenohumoral joint injection) on right: Note: Injection was completed with the patient seated in his wheelchairdo difficulty with transfer, which provided less than optimal positioncompared to typical lateral decubitus, however, injection was stillperformed with medication seen entering the glenohumeral joint. Time out: Prior to injection, a time out was called to confirm the administration ofappropriate medicine, patient name, procedure and confirm to the best ofour ability and knowledge the presence of any necessary risks andbenefits. Patient verbalizes understanding. Ultrasound utilized to guide injection Ultrasound required due to: need to visualize specific joint recess Sterile techinique applied. Skin sterilized with betadine and cleanedwith alcohol swab. Glenohumoral joint injected using 3.5 inch, 22 gaugeneedle. Injected with 1 ml lidocaine 1%, triamcinolone [id number]/ml 1 ml. Patient tolerated procedure with no significant bleeding oradverse reaction. Patient instructed to call or return to clinic for fever or warmth andredness at injection site for potential infection. Patient also advisedas to potential for steroid flare reaction including increased pain andredness at injection site which should be treated with ice and resolvewithin 24 hours. Physician Signature: I reviewed the images and approve the documentation above.: Signed byFarrukh Toure on Tuesday, December 13, 2022 at 2:03:34 PM Farrukh Toure MD RAD ULTRASO UND documented in this encounter Visit Diagnoses Diagnosis Rotator cuff arthropathy of right shoulder- Primary documented in this encounter Administered Medications Inactive Administered Medications - up to 3 most recent administrations Medication Order MAR Action Action Date Dose Rate Site lidocaine 1% 1 mL - triamcinolone acetonide 40 mg/mL 1 mL inj 2 mL 2 mL, Injection, ONCE, On 12/13/22 at 1430, For 1 dose, Lidocaine 1% 1mL Triamcinolone Acetonide 40 mg/mL 1 mL (Final concentration = 20 mg/mL) REFRIGERATE and SHAKE WELL Given 12/13/2022 2:38 PM EDT 2 mL Shoulder Right documented in this [...] and were consensually agreed upon. Care Teams Zoology Teacher Relationship Specialty Start Date End Date Marlon Santana DO [address] [place] [address] PCP - General Family Medicine 01/07/19 documented as of this encounter
--- OUTSIDE RECORDS SUMMARY | 2023-05-08 05:40 | External Medical Summary | Summary of Care ---
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 10/08/2021 Preoperative [...] Toure MD [address] [place] [address] 01/11/2023 Office Visit Cardiology Ana Lilia Graves CRNP [address] [place] [address] 01/12/2023 Office Visit Pain Medicine Selina Myers PA-C [address] [place] [address] Scheduled Procedures Name Priority Associated Diagnoses Date/Ti [...] this encounter Medical Devices Implanted Type Area Tool Crib Supervisor Device Identifier Shelf Expiration Date Model / Serial / Lot Clip Quick 2.8mm 230cm - [id number] Implanted:Qty: 1 on 05/01/2020 by Augustin Bearden MD at ENDOSCOPY [facility] [employer] [facility] 06/04/2022 HX-202UR.A / / [id number] documented [...] and were consensually agreed upon. Care Teams Media Marketing Director Relationship Specialty Start Date End Date Marlon Santana DO [address] [place] [address] PCP - General Family Medicine 01/07/19 documented as of this encounter
--- OUTSIDE RECORDS SUMMARY | 2023-05-08 05:40 | External Medical Summary | Summary of Care ---
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 10/08/2021 Preoperative [...] Toure MD [address] [place] [address] 01/11/2023 Office Visit Cardiology Ana Lilia Graves CRNP [address] [place] [address] 01/12/2023 Office Visit Pain Medicine Selina Myers PA-C [address] [place] [address] Scheduled Procedures Name Priority Associated Diagnoses Date/Ti [...] this encounter Medical Devices Implanted Type Area Fullerette Device Identifier Shelf Expiration Date Model / Serial / Lot Clip Quick 2.8mm 230cm - [id number] Implanted:Qty: 1 on 05/01/2020 by Augustin Bearden MD at ENDOSCOPY [facility] [employer] [facility] 06/04/2022 HX-202UR.A / / [id number] documented [...] and were consensually agreed upon. Care Teams Resource Director Relationship Specialty Start Date End Date Marlon Santana DO [address] [place] [address] PCP - General Family Medicine 01/07/19 documented as of this encounter
--- OUTSIDE RECORDS SUMMARY | 2023-05-08 05:40 | External Medical Summary | Summary of Care ---
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 10/08/2021 Preoperative [...] Toure MD [address] [place] [address] 01/11/2023 Office Visit Cardiology Ana Lilia Graves CRNP [address] [place] [address] 01/12/2023 Office Visit Pain Medicine Selina Myers PA-C [address] [place] [address] Scheduled Procedures Name Priority Associated Diagnoses Date/Ti [...] this encounter Medical Devices Implanted Type Area Wine Specialist Device Identifier Shelf Expiration Date Model / Serial / Lot Clip Quick 2.8mm 230cm - [id number] Implanted:Qty: 1 on 05/01/2020 by Augustin Bearden MD at ENDOSCOPY [facility] [employer] [facility] 06/04/2022 HX-202UR.A [...] and were consensually agreed upon. Care Teams Business Taxes Specialist Relationship Specialty Start Date End Date Marlon Santana DO [address] [place] [address] PCP - General Family Medicine 01/07/19 documented as of this encounter
--- OUTSIDE RECORDS SUMMARY | 2023-05-08 05:40 | External Medical Summary | Summary of Care ---
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 10/08/2021 Preoperative [...] Toure MD [address] [place] [address] 01/11/2023 Office Visit Cardiology Ana Lilia Graves CRNP [address] [place] [address] 01/12/2023 Office Visit Pain Medicine Selina Myers PA-C [address] [place] [address] Scheduled Procedures Name Priority Associated Diagnoses Date/Ti [...] this encounter Medical Devices Implanted Type Area It Network Engineer Device Identifier Shelf Expiration Date Model / Serial / Lot Clip Quick 2.8mm 230cm - [id number] Implanted:Qty: 1 on 05/01/2020 by Augustin Bearden MD at ENDOSCOPY [facility] [email or web address] [facility] 06/04/2022 HX-202UR.A / / [id number] documented [...] and were consensually agreed upon. Care Teams Heater Tender Relationship Specialty Start Date End Date Marlon Santana DO [address] [place] [address] PCP - General Family Medicine 01/07/19 documented as of this encounter
--- OUTSIDE RECORDS SUMMARY | 2023-05-08 05:40 | External Medical Summary | Summary of Care ---
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 10/08/2021 Preoperative [...] Toure MD [address] [place] [address] 01/11/2023 Office Visit Cardiology Ana Lilia Graves CRNP [address] [place] [address] 01/12/2023 Office Visit Pain Medicine Selina Myers PA-C [address] [place] [address] Scheduled Procedures Name Priority Associated Diagnoses Date/Ti [...] this encounter Medical Devices Implanted Type Area Counselor Dormitory Device Identifier Shelf Expiration Date Model / Serial / Lot Clip Quick 2.8mm 230cm - [id number] Implanted:Qty: 1 on 05/01/2020 by Augustin Bearden MD at ENDOSCOPY [facility] [employer] [facility] 06/04/2022 HX-202UR.A / [...] and were consensually agreed upon. Care Teams Student Services Counselor Relationship Specialty Start Date End Date Marlon Santana DO [address] [place] [address] PCP - General Family Medicine 01/07/19 documented as of this encounter
--- OUTSIDE RECORDS SUMMARY | 2023-05-08 05:40 | External Medical Summary | Summary of Care ---
Author Name Unknown Organization [facility] Address [address] [place] [address] Phone [phone] Care Team Providers Care Track Welder Name Role Phone Marlon Santana DO Primary Care Provider Reason for Visit * Reason Onset Date Comments Appointment 11/27/2022 Encounter Details Date Type Department Care Team Description 11/27/2022 Telephone Family Practice [facility] [address] [place] [address] Marlon aSntana DO [address] 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 HTN, goal below 130/80 01/20/2020 Dyslipidemia 01/20/2020 Peripheral vascular disease 01/17/2020 Lumbar degenerative disc disease 07/20/2 020 Osteoarthritis of spine with radiculopat hy, cervical region 08/31/2019 Left cervical radiculopathy 08/31/2019 Other constipation 08/31/2019 ADVANCE DIRECTIVE INFORMATION 01/10/2008 Overview: No, Advance Directive brochure given to patient. Tobacco abuse documented as of this encounter (statuses as of 11/30/2022) Resolved Problems Problem Noted Date Resolved Date [...] as of this encounter (statuses as of 11/30/2022) Immunizations Name Administration Dates Next Due COVID-19 [...] encounter Miscellaneous Notes * Telephone Encounter - Shea Soler - 11/30/2022 9:37 AM EDT I talked to , she wants to wait on appts and will call when ready to schedule * Telephone Encounter - Radha Barney LPN - 11/29/2022 8:53 AM EDT Called pt and left detailed vm message on identified vm. Please assist pt to schedule * Telephone Encounter - Marlon Santana DO - 11/27/2022 4:18 PM EDT Lab studies shows elevated urine microalbumin. Advise referral to assistant product manager, repeat lab studies for BMP, advise renal ultrasound. Please assist with scheduling documented in this encounter Plan of Treatment Upcoming Encounters Date Type Specialty Care Team Description 12/13/2022 Office Visit Orthopedics Farrukh Toure MD [address] [place] [address] 01/11/2023 Office Visit Cardiology Ana Lilia Graves CRNP [address] [place] [address] 01/12/2023 Office Visit Pain Medicine Selina Myers PA-C [address] [place] [address] Scheduled Procedures Name Priority Associated Diagnoses Date/Ti [...] this encounter Medical Devices Implanted Type Area Columnist/Commentator Device Identifier Shelf Expiration Date Model / Serial / Lot Clip Quick 2.8mm 230cm - [id number] Implanted:Qty: 1 on 05/01/2020 by Augustin Bearden MD at ENDOSCOPY [facility] [employer] 06/04/2022 HX-202UR.A / / [id number] documented as [...] and were consensually agreed upon. Care Teams Track Welder Relationship Specialty Start Date End Date Marlon Santana DO [address] [place] [address] PCP - General Family Medicine 01/07/19 documented as of this encounter
--- OUTSIDE RECORDS SUMMARY | 2023-05-08 05:40 | External Medical Summary | Summary of Care ---
Author Name Unknown Organization [facility] Address [address] [facility] [place] [address] Phone [phone] Care Team Providers Care Perch Mender Name Role Phone Marlon Santana DO Primary Care Provider [phone] Reason for Referral * Medication Prior Authorization - Closed Specialty Diagnoses / Procedures Referred By Lizet t Referred To Contact Diagnoses Cervical myelopathy (HCC) Lumbar degenerative disc disease Osteoarthritis of spine with radiculopathy, cervical region Marlon Santana DO [address] [place] [address] Referral ID Status Reason Start Date Expiration Date Visits Re quested Visits Authorized [id number] Closed [phone] Reason for Visit * Reason Onset Date Comments Medication Refill 12/21/2022 Encounter Details Date Type Department Care Team Description 12/21/2022 Refill Family Practice [address] [place] [address] Marlon Santana DO [address] [place] [address] Cervical myelopathy (HCC); Lumbar degenerative disc disease; Osteoarthritis of spine with radiculopathy, cervical region Allergies No known active allergiesdocumented as of this encounter (statuses as of 12/22/2022) Medications Medication Sig Dispensed Refills Start Date End Date Status Multi-Vitamins Oral Tablet Take 1 Tablet by mouth in the morning. 0 Active Aspirin 81 MG Oral Tablet Delayed ReleaseIndications :Peripheral vascular disease (HCC) Take 1 Tablet by mouth in the morning. 90 Tablet 1 10/13/2021 Active Folic Acid 1 MG Oral TabletIndications: [...] Pain, Severe. 120 Tablet 0 12/22/2022 Active oxyCODONE HCl 5 MG Oral Tablet (Oxy IR)Indications:Cer vical myelopathy (HCC),Lumbar degenerative disc disease,Osteoarthr itis of spine with radiculopathy, cervical region Take 1 Tablet by mouth every 6 hours as needed for Pain, Severe. 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 Authorizing Provider: MARLON SANTANA * Telephone Encounter - Rigo Maloney [facility] - 12/22/2022 9:17 AM EDTPending Prescriptions: Disp Refills oxyCODONE HCl 5 MG Oral Tablet (Oxy IR) 120 Ta*0 Sig: Take 1 Tablet by mouth every 6 hours as needed for Pain, Severe. * Telephone Encounter - Rigo Maloney [facility] - 12/22/2022 9:14 AM EDT I have reviewed the patients controlled substance dispensing history in the Prescription Drug Monitoring Program in compliance with the [facility] regulations before prescribing a controlled substance. PDMP checked on 12/22/2022. Pending Prescriptions: Disp Refills oxyCODONE HCl 5 MG Oral Tablet (Oxy IR) 120 Ta*0 Sig: Take 1 Tablet by mouth every 6 hours as needed for Pain, Severe. Last Visit: 11/11/2022 (in office), 11/26/2021 (telemedicine) Next Visit: Visit date not found Date medication was last filled: 11/11 Date medication is due for refill: 12/10 Pharmacy: [id number] Is this request for a controlled substance? Yes and Urine Drug Screen Not completed Toxicology results: No results found for this or any previous visit. Please approve if appropriate. Thanks, Jordi Maloney PharmD Clinical Pharmacist [facility] ([facility]) (Formerly Telepharmacy) [phone] 12/22/2022 9:14 AM * Telephone Encounter - THU Celis Tech - 12/21/2022 11:03 AM EDT Did you pend patient's preferred pharmacy and medication before forwarding?yes Pharmacy: [facility] #[id number] Pending Prescriptions: Disp Refills oxyCODONE HCl [...] appointment Last date the medication was ordered: 11-11-22 Is this request for a controlled substance?Yes, What was the last refill date 11-11-22 w/ quantity 120 and dosage 5mg and [...] Visit Internal Medicine Osei Alexander MD [address] [facility] [place] [address] 06/14/2023 Office Visit Cardiology Ana Lilia Graves CRNP [address] [place] [address] Scheduled Procedures Name Priority Associated Diagnoses Date/Ti [...] this encounter Medical Devices Implanted Type Area Bisque Placer Device Identifier Shelf Expiration Date Model / Serial / Lot Clip Quick 2.8mm 230cm - [id number] Implanted:Qty: 1 on 05/01/2020 by Augustin Bearden MD at ENDOSCOPY [facility] [employer] 06/04/2022 HX-202UR.A / / [id number] documented [...] 10/07/2021 11:45 AM 10/09/2021 8:34 PM This order reflects the patients wishes and were consensually agreed upon. Question Answer Comments Discussion of Advance Directives occurred with: Not Discussed Code Status History Code Status Date Activated Date Inactivated Comments Full Code 10/07/2021 7:02 AM 10/07/2021 11:45 AM This o rder reflects the patients wishes and were consensually agreed upon. Care Teams Perch Mender Relationship Specialty Start Date End Date Marlon Santana DO [address] [place] [address] PCP - General Family Medicine 01/07/19 documented as of this encounter
--- OUTSIDE RECORDS SUMMARY | 2023-05-08 05:40 | External Medical Summary | Summary of Care ---
Author Name Unknown Organization [facility] Address [address] [facility] [address] Phone [phone] Care Team Providers Care Employment Specialist Name Role Phone Marlon Santana DO Primary Care Provider Encounter Details Date Type Department Care Team Description 11/22/2022 Telephone Orthopaedics [facility] [address] [place] [address] Harjit Yuan DO [address] [place] [address] Allergies No known active allergiesdocumented as of this encounter (statuses as of 12/07/2022) Medications Medication Sig Dispensed Refills Start Date [...] HCl 5 MG Oral Tablet (Oxy IR)Indications:Cervi angeal myelopathy (HCC),Lumbar degenerative disc disease,Osteoarthrit is of spine with radiculopathy, cervical region Take 1 Tablet by mouth every 6 hours as needed for Pain, Severe. 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 documented in this encounter Plan of Treatment Upcoming Encounters Date Type Specialty Care Team Description 12/13/2022 Office Visit Orthopedics Farrukh Toure MD [address] [place] [address] 01/11/2023 Office Visit Cardiology Ana Lilia Graves CRNP [address] [place] [address] 01/12/2023 Office Visit Pain Medicine Selina Myers PA-C [address] [place] [address] Scheduled Procedures Name Priority Associated Diagnoses Date/Ti [...] this encounter Medical Devices Implanted Type Area Ore Roaster Device Identifier Shelf Expiration Date Model / Serial / Lot Clip Quick 2.8mm 230cm - [id number] Implanted:Qty: 1 on 05/01/2020 by Augustin Bearden MD at ENDOSCOPY [facility] [employer] 06/04/2022 HX-202UR.A / / [id number] documented [...] and were consensually agreed upon. Care Teams Employment Specialist Relationship Specialty Start Date End Date Marlon Santana DO [address] [place] [address] PCP - General Family Medicine 01/07/19 documented as of this encounter
--- OUTSIDE RECORDS SUMMARY | 2023-05-08 05:40 | External Medical Summary | Summary of Care ---
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 Trying to get patient scheduled with Dr. Angelo. Referral is under active request. documented in this encounter Plan of Treatment Upcoming Encounters Date Type Specialty Care Team Description 12/13/2022 Office Visit Orthopedics Farrukh Toure MD [address] [place] [address] 01/11/2023 Office Visit Cardiology Ana Lilia Graves CRNP [address] [place] [address] 01/12/2023 Office Visit Pain Medicine Selina Myers PA-C [address] [place] [address] Scheduled Procedures Name Priority Associated Diagnoses Date/Ti [...] this encounter Medical Devices Implanted Type Area Boot Repairer Device Identifier Shelf Expiration Date Model / Serial / Lot Clip Quick 2.8mm 230cm - [id number] Implanted:Qty: 1 on 05/01/2020 by Augustin Bearden MD at ENDOSCOPY [facility] [employer] 06/04/2022 HX-202UR.A / / [id number] [...] and were consensually agreed upon. Care Teams Race Steward Relationship Specialty Start Date End Date Marlon Santana DO [address] [place] [address] PCP - General Family Medicine 01/07/19 documented as of this encounter
--- OUTSIDE RECORDS SUMMARY | 2023-05-08 05:40 | External Medical Summary | Summary of Care ---
Author Name Unknown Organization [facility] Address [address] [facility] [place] [address] Phone [phone] Care Team Providers Care Light Rail Train Operator Name Role Phone Unavailable Primary Care Provider Unavailabl e Reason for Visit * Reason Onset Date Comments Advice 01/28/2023 Encounter Details Date Type Department Care Team (Late st Contact Info) Description 01/28/2023 Telephone Family Practice [address] [facility] [place] [address] [place] [address] Marlon Santana DO [address] [place] [address] Advice Allergies No known active allergiesdocumented as of this encounter (statuses as of 01/28/2023) Medications Medication Sig Dispensed Refills Start Date [...] for Pain, Severe. 120 Tablet 0 01/28/2023 Active oxyCODONE HCl 5 MG Oral Tablet (Oxy IR)Indications:Cer vical myelopathy (HCC),Lumbar degenerative disc disease,Osteoarthr itis of spine with radiculopathy, cervical region Take 1 Tablet by mouth every 6 hours as needed for Pain, Severe. 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 * Telephone Encounter - Dawson Soler OSA - 01/28/2023 8:49 AM EST No Appointments Available Patient declined appointments?: No What Visit Type is needed? Other Med refill If Acute Visit Type is needed, were surrounding clinics offered to patient (Yes/No)? N/A Was patient offered appointments with other available providers (Yes/No)? N/A See Call Details? (Yes or No): Yes Pt sts pt needs a med refill for Oxycodone 5MG. Please advise documented in this encounter Plan of Treatment Upcoming Encounters Date Type Department Care Team (Late st Contact Info) Description 03/23/2023 2:00 PM EST Office Visit General Internal Medicine [facility] [address] [facility] [place] [address] Osei Alexander MD [address] [facility] [place] [address] 06/14/2023 3:00 PM EDT Office Visit Cardiology, [facility] [address] [place] [address] Ana Lilia Graves CRNP [address] [place] [address] Scheduled Procedures Name Priority Associated Diagnoses Date/Ti [...] this encounter Medical Devices Implanted Type Area Soil Fertility Specialist Device Identifier Shelf Expiration Date Model / Serial / Lot Clip Quick 2.8mm 230cm - [id number] Implanted:Qty: 1 on 05/01/2020 by Augustin Beadren MD at ENDOSCOPY [facility] [employer] 06/04/2022 HX-202UR.A / / [id number] documented [...]
--- OUTSIDE RECORDS SUMMARY | 2023-05-08 05:40 | External Medical Summary | Summary of Care ---
Author Name Unknown Organization [facility] Address [address] [place] [address] Phone [phone] Care Team Providers Care Hairspring Assembler Name Role Phone Marlon Santana DO Primary Care Provider Reason for Visit * Reason Onset Date Comments Appointment 12/29/2022 Earlier appt req uest Encounter Details Date Type Department Care Team (Late st Contact Info) Description 12/29/2022 Telephone General Internal Medicine [facility] [place] [address] [facility] [place] [address] Osei Alexander MD [address] [facility] [place] [address] Appointment (Earlier appt request) Allergies No known active allergiesdocumented as of this encounter (statuses as of 12/29/2022) Medications Medication Sig Dispensed Refills Start Date [...] 12/22/2022 Active Folic Acid 1 MG Oral TabletIndications:Pr otein-calorie malnutrition, unspecified severity (HCC) TAKE 1 TABLET BY MOUTH EVERY DAY 90 Tablet 1 12/24/2022 Active documented as of this encounter (statuses as of 12/29/2022) Active Problems Problem Noted Date Diagnosed Date COPD, group A, by GOLD 2017 classification 11/15 Overview: Per COPD GOLD Classification Protein-calorie malnutrition 11/11/2022 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 Cervical myelopathy 10/09/2021 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 10/08/2021 Preoperative [...] as of this encounter (statuses as of 12/29/2022) Resolved Problems Problem Noted Date Diagnosed Date [...] as of this encounter (statuses as of 12/29/2022) Immunizations Name Administration Dates Next Due COVID-19 [...] encounter Miscellaneous Notes * Telephone Encounter - Eufemia White - 12/29/2022 9:09 AM EDT Offered [facility] providers// pt declined SP closer to home//pt prefers male physician// offered PA declined wants MD for now wait listed 03/23 appt * Telephone Encounter - Osei Alexander MD - 12/29/2022 8:43 AM EDT Schedule ANY provider for new patient visit, can schedule at [facility] where Dr. Esther practiced, or establish with any [facility] primary if needs sooner visit. * Telephone Encounter - Eufemia Cindy - 12/29/2022 8:39 AM EDT Pt called and is requesting a sooner appt //past pt of Esther// has a lot going on and can'twait till March Pt would need an afternoon appt time documented in this encounter Plan of Treatment Upcoming Encounters Date Type Department Care Team (Late st Contact Info) Description 03/23/2023 2:00 PM EST Office Visit General Internal Medicine [facility] [address] [facility] [place] [address] Osei Alexander MD [address] [facility] [place] [address] 06/14/2023 3:00 PM EDT Office Visit Cardiology, [facility] [address] [place] [address] Ana Lilia Graves CRNP [address] [place] [address] Scheduled Procedures Name Priority Associated Diagnoses Date/Ti [...] BY PFT 10/10/2021 COVID-19 Vaccine ( - season) 2022 03/09/2021, 07/08/2020, 06/10/2020 Influenza [...] this encounter Medical Devices Implanted Type Area Helpdesk Specialist Device Identifier Shelf Expiration Date Model / Serial / Lot Clip Quick 2.8mm 230cm - [id number] Implanted:Qty: 1 on 05/01/2020 by Augustin Bearden MD at ENDOSCOPY [facility] [employer] 06/04/2022 HX-202UR.A / / [id number] documented [...] and were consensually agreed upon. Care Teams Hairspring Assembler Relationship Specialty Start Date End Date Marlon Santana DO [address] [place] [address] PCP - General Family Medicine 01/07/19 documented as of this encounter
--- OUTSIDE RECORDS SUMMARY | 2023-05-08 05:40 | External Medical Summary | Summary of Care ---
Author Name Unknown Organization [facility] Address [address] [facility] [place] [address] Phone [phone] Care Team Providers Care Hydraulic Blocker Name Role Phone Marlon Santana DO Primary Care Provider Reason for Visit * Reason Onset Date Comments Appointment 11/29/2022 Encounter Details Date Type Department Care Team Description 11/29/2022 Telephone Nephrology, Gilma Tena [address] [place] [address] Kim Angelo MD [address] [facility] [place] [address] Appointment Allergies No known active allergiesdocumented as of this encounter (statuses as of 12/03/2022) Medications Medication Sig Dispensed Refills Start Date [...] as of this encounter (statuses as of 12/03/2022) Active Problems Problem Noted Date COPD, group A, by GOLD 2017 classificati on 11/15/2022 Overview: Per COPD GOLD Classification Protein-calorie malnutrition 11/11/2022 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 Trying to get patient scheduled with Dr. Angelo. Referral is under active request. Letter and My G being sent out. Patient being removed from list. * Telephone Encounter - TRACIE Gallardo - 11/29/2022 9:59 AM EDT 11/29 called patient, left message. Trying to get patient scheduled with Dr. Angelo. Referral is under active request. documented in this encounter Plan of Treatment Upcoming Encounters Date Type Specialty Care Team Description 12/13/2022 Office Visit Orthopedics Farrukh Toure MD [address] [place] [address] 01/11/2023 Office Visit Cardiology Ana Lilia Graves CRNP [address] [place] [address] 01/12/2023 Office Visit Pain Medicine Selina Myers PA-C [address] [place] [address] Scheduled Procedures Name Priority Associated Diagnoses Date/Ti [...] this encounter Medical Devices Implanted Type Area Bonding Molder Device Identifier Shelf Expiration Date Model / Serial / Lot Clip Quick 2.8mm 230cm - [id number] Implanted:Qty: 1 on 05/01/2020 by Augustin Bearden MD at ENDOSCOPY [facility] [employer] [facility] 06/04/2022 HX-202UR.A / [...] and were consensually agreed upon. Care Teams Hydraulic Blocker Relationship Specialty Start Date End Date Marlon Santana DO [address] [place] [address] PCP - General Family Medicine 01/07/19 documented as of this encounter
--- OUTSIDE RECORDS SUMMARY | 2023-05-08 05:40 | External Medical Summary | Summary of Care ---
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 10/08/2021 Preoperative [...] Toure MD [address] [place] [address] 01/11/2023 Office Visit Cardiology Ana Lilia Graves CRNP [address] [place] [address] 01/12/2023 Office Visit Pain Medicine Selina Myers PA-C [address] [place] [address] Scheduled Procedures Name Priority Associated Diagnoses Date/Ti [...] this encounter Medical Devices Implanted Type Area Industrial Health And Safety Professor Device Identifier Shelf Expiration Date Model / Serial / Lot Clip Quick 2.8mm 230cm - [id number] Implanted:Qty: 1 on 05/01/2020 by Augustin Bearden MD at ENDOSCOPY [facility] [employer] [facility] 06/04/2022 HX-202UR.A / / [id number] [...] and were consensually agreed upon. Care Teams Reversing Mill Roller Relationship Specialty Start Date End Date Marlon Santana DO [address] [place] [address] PCP - General Family Medicine 01/07/19 documented as of this encounter
--- OUTSIDE RECORDS SUMMARY | 2023-05-08 05:41 | External Medical Summary ---
Author Name Unknown Address Unknown Organization K01:[facility] [address] [facility] [address] Laboratory Report Ordering Provider Test Date Status DENZEL SAUCEDOO 11/17/2022 16:27:17 Final Observation Date Value Abnormality Reference (Units ) Status Triglyceride 11/17/2022 16:27:17 106 <=174 ( mg/dL) Final Triglyceride Reference Range s (mg/dL):
<150 Acceptable
150-174 Borderline high
175-499 High
>=500 Very high Cholesterol 11/17/2022 16:27:17 141 <200 (mg /dL) Final Total Cholesterol Reference Ranges (mg/dL):
<200 Desirable
200-239 Borderline high
>=240 High HDL 11/17/2022 16:27:17 51 >39 (mg/dL ) Final HDL Cholesterol Reference Ra nges (mg/dL):
>=60 High (Desirable)
<50 Low (Undesirable) For Females
<40 Low (Undesirable) For Males NON-HDL CHOLESTEROL 11/17/2022 16:27:17 90 <=159 (mg/dL) Final Non-HDL Cholesterol Referenc e Range (mg/dL):
<100 Target level for high risk ASCVD patient
<130 Optimal for general population
130-159 Near optimal for general population
160-189 Borderline High
190-219 High
>=220 Very High LDL, (calculated) 11/17/2022 16:27:17 69 <= 129 (mg/dL) Final LDL Cholesterol Reference Ra nges (mg/dL):
<70 Target level for high risk ASCVD patient
<100 Optimal for general population
100-129 Near optimal for general population
130-159 Borderline high
160-189 High
>=190 Very high Performing Location [facility] [place] [facility] [address] [facility] [address]
--- OUTSIDE RECORDS SUMMARY | 2023-05-08 05:41 | External Medical Summary | Summary of Care ---
Author Name Unknown Organization [facility] Address [address] [place] [address] Phone [phone] Care Team Providers Care Water Control Supervisor Name Role Phone Marlon Santana DO Primary Care Provider Reason for Visit * Reason Comments Outpatient Testing Encounter Details Date Type Department Care Team Description 11/17/2022 Laboratory Laboratory [facility] [address] [place] [id number] [facility] [address] [place] [id number] Coronary artery disease involving [place] coronary artery of [place] heart without angina pectoris Allergies No known active allergiesdocumented as of this encounter (statuses as of 11/17/2022) Medications Medication Sig Dispensed Refills Start Date [...] as of this encounter (statuses as of 11/17/2022) Active Problems Problem Noted Date Protein-calorie malnutrition 11/11/2022 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 Cervical myelopathy 10/09/2021 COPD (chronic obstructive pulmonary dise ase) 10/08/2021 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 10/08/2021 Preoperative [...] as of this encounter (statuses as of 11/17/2022) Resolved Problems Problem Noted Date Resolved Date Stage 3a chronic kidney disease 01/14/2020 01/17/2020 Overview: Per CKD protocol - Per CKD protocol Kidney disease, chronic, stage III (GFR 30-59 ml /min) 08/13/2019 01/17/2020 Overview: Per CKD protocol Fracture of rib of left side 08/06/2011 NO KNOWN PROBLEMS 11/30/2006 10/27/2011 documented as of this encounter (statuses as of 11/17/2022) Immunizations Name Administration Dates Next Due COVID-19 [...] Encounters Date Type Specialty Care Team Description 11/22/2022 Office Visit Orthopedics Harjit Yuan DO [address] [place] [id number] 11/23/2022 Office Visit Neurological Surgery Rell Cornejo MD [address] [place] [address] 01/11/2023 Office Visit Cardiology Ana Lilia Graves CRNP [address] [place] [address] Pending Results Name Type Priority Associated Diagnoses Date /Time LIPID PANEL WITH DIRECT LDL IF TG IS HIGH Lab Routine Coronary artery disease involving [place] coronary artery of [place] heart without angina pectoris 11/17/2022 4:27 PM EDT Scheduled Procedures Name Priority Associated Diagnoses Date/Ti [...] ASSESSMENT COMPLETED IN PAST YEAR FOR COPD 11/12/2023 11/11/2022 Albumin/Creatinine Ratio 11/11/2025 11/11/2022, 09/05 Colonoscopy 01/14/2030 [...] this encounter Medical Devices Implanted Type Area [employer] Director Device Identifier Shelf Expiration Date Model / Serial / Lot Clip Quick 2.8mm 230cm - [id number] Implanted:Qty: 1 on 05/01/2020 by Augustin Bearden MD at ENDOSCOPY [facility] [employer] [facility] 06/04/2022 [id number] / [id number] documented as of this encounter Visit Diagnoses Diagnosis Coronary artery disease involving [place] coronary artery of [place] heart without angina pectoris documented in this encounter Advance Directives Latest [...] and were consensually agreed upon. Care Teams Water Control Supervisor Relationship Specialty Start Date End Date Marlon Santana DO [address] [place] [address] PCP - General Family Medicine 01/07/19 documented as of this encounter
--- OUTSIDE RECORDS SUMMARY | 2023-05-08 05:41 | External Medical Summary | Summary of Care ---
Author Name Unknown Organization [facility] Address [address] [place] [address] Phone [phone] Care Team Providers Care Community Health Navigator Name Role Phone Marlon Santana DO Primary Care Provider [phone] Encounter Details Date Type Department Care Team Description 11/12/2022 Patient Reported Data Patient Survey Ortho [facility] Allergies No known active allergiesdocumented as of this encounter (statuses as of 11/12/2022) Medications Medication Sig Dispensed Refills Start Date [...] as of this encounter (statuses as of 11/12/2022) Active Problems Problem Noted Date Protein-calorie malnutrition 11/11/2022 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 Cervical myelopathy 10/09/2021 COPD (chronic obstructive pulmonary dise ase) 10/08/2021 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 10/08/2021 Preoperative [...] as of this encounter (statuses as of 11/12/2022) Resolved Problems Problem Noted Date Resolved Date Stage 3a chronic kidney disease 01/14/2020 01/17/2020 Overview: Per CKD protocol - Per CKD protocol Kidney disease, chronic, stage III (GFR 30-59 ml /min) 08/13/2019 01/17/2020 Overview: Per CKD protocol Fracture of rib of left side 08/06/2011 NO KNOWN PROBLEMS 11/30/2006 10/27/2011 documented as of this encounter (statuses as of 11/12/2022) Immunizations Name Administration Dates Next Due COVID-19 [...] Yuan DO [address] [place] [address] 11/23/2022 Office Visit Neurological Surgery Rell Cornejo MD [address] [place], [place] [id number] 01/11/2023 Office Visit Cardiology Ana Lilia Graves CRNP [address] [place] [address] Scheduled Procedures Name Priority Associated Diagnoses Date/Ti [...] 06/10/2020 *COPD SEVERITY VERIFIED BY PFT 10/10/2021 Albumin/Creatinine Ratio 09/23/2022 11/11/2022, 09/05 Influenza Vaccine (FLU shot) (#1) 2022 01/14/2021, 11/22/2019 GFR 07/07/2023 07/06/2022, 08/09/2021, 10/24/2021, Additional history exists Depression Screening 11/12/2023 11/11/2022 O2 ASSESSMENT COMPLETED IN PAST YEAR FOR COPD 11/12/2023 11/11/2022 Colonoscopy 01/14/2030 01/15/2020, 01/15/2020 Colorectal Cancer Screening [...] this encounter Medical Devices Implanted Type Area Immigration Manager Device Identifier Shelf Expiration Date Model / Serial / Lot Clip Quick 2.8mm 230cm - [id number] Implanted:Qty: 1 on 05/01/2020 by Augustin Bearden MD at [facility]COPY [facility] [employer] [facility] 06/04/2022 [id number] [...] and were consensually agreed upon. Care Teams Community Health Navigator Relationship Specialty Start Date End Date Marlon Santana DO [address] [place] [address] PCP - General Family Medicine 01/07/19 documented as of this encounter
--- OUTSIDE RECORDS SUMMARY | 2023-05-08 05:41 | External Medical Summary | Summary of Care ---
Author Name Unknown Organization [facility] Address [address] [place] [place] [address] Phone [phone] Care Team Providers Care Validation Architect Name Role Phone Marlon Soriano DO Primary Care Provider Reason for Referral * Evaluate & Treat - Unlimited Visits (Within 10 days (routine)) - Pending Review Specialty Diagnoses / Procedures Referred By Lizet meehan Referred To Contact Podiatry Diagnoses Onychomycosis Marlon Soriano DO [address] [facility] [place] [address] Referral ID Status Reason Start Date Expiration Date Visits Requested Visits Authorized [id number] Pending Review Specialty Services Required 11/11/[phone] Question Answer Referral Priority Within 10 days (routine) Which condition are you referring this patient for? Nail trimming Medicare Patient? Yes Can Patient perform routine footcare without assistance? No Does patient have a chronic condition? Yes Has patient been seen in the past 6 months? Yes Date last seen for chronic condition: 11/11/2022 Who saw patient for chronic condition? Dr Soriano * Evaluate & Treat - Unlimited Visits (Within 10 days (routine)) - Pending Review Specialty Diagnoses / Procedures Referred By Lizet meehan Referred To Contact Orthopaedic Surgery / Orthopedics Diagnoses Rotator cuff tendonitis, right Marlon Soriano DO [address] [place] [address] Referral ID Status Reason Start Date Expiration Date Visits Requested Visits Authorized [id number] Pending Review Specialty Services Required 11/11/[phone] Question Answer Referral Priority Within 10 days (routine) What body part is the patient being seen for? Shoulder What condition is the patient being seen for? Sprain/Strain/Tear/Other * Evaluate & Treat - Unlimited Visits (Within 10 days (routine)) - Pending Review Specialty Diagnoses / Procedures Referred By Lizet meehan Referred To Contact Physical Therapy / Physical Medicine And Rehab Diagnoses Rotator cuff tendonitis, right Marlon Soriano DO [address] [place] [address] Referral ID Status Reason Start Date Expiration Date Visits Requested Visits Authorized [id number] Pending Review Specialty Services Required 11/11/[phone] Question Answer Referral Priority Within 10 days (routine) Reason for Visit * Reason Comments Follow Up Pt here for a 3m f/u Encounter Details Date Type Department Care Team Description 11/11/2022 Office Visit Family Practice [facility] [address] [place] [id number] Marlon Soriano DO [address] [place] [address] Cervical myelopathy (HCC)*; Lumbar degenerative disc disease; Osteoarthritis of spine with radiculopathy, cervical region; Rotator cuff tendonitis, right; HTN, goal below 130/80; Coronary artery disease involving muckleshoot coronary artery of muckleshoot heart without angina pectoris; Peripheral vascular disease (HCC); COPD, severity to be determined (HCC); Narcotic bowel syndrome (HCC); Protein-calorie malnutrition, unspecified severity (HCC); Risk and functional assessment; Stage 3b chronic kidney disease (HCC); Onychomycosis Allergies No known active allergiesdocumented as of this encounter (statuses as of 11/26/2022) Medications Medication Sig Dispensed Refills Start Date [...] Pain, Severe. 120 Tablet 0 11/11/2022 Active Polyethylene Glycol 3350 17 GM/SCOOP Oral Powder (MiraLax) Take 17 g by mouth daily. One cap full in juice, to effect 1 stool per day. . 507 g 1 05/21/2020 3 Discontinue d(Medicatio n List Clean Up) Sennosides 8.6 MG Oral Tablet Take by mouth 1 Tablet at bedtime . 0 3 Discontinue d(Medicatio n List Clean Up) Nicotine 21 MG/24HR Transdermal Patch 24 Hour (Nicoderm CQ) Place topically on the skin 1 Patch daily . 28 Patch 3 07/08/2021 3 Discontinue d(Medicatio n List Clean Up) Metanx 3-90.314-2-35 MG Oral Capsule Take by mouth . 0 3 Discontinue d(Medicatio n List Clean Up) DULoxetine HCl 30 MG Oral Capsule Delayed Release Particles (Cymbalta)Indicati ons:Osteoarthritis of spine with radiculopathy, cervical region,Lumbar degenerative disc disease Take by mouth 1 Capsule in the morning. Do not cut, crush or chew. 90 Capsule 3 09/28/2021 3 Discontinue d(Medicatio n List Clean Up) Cyclobenzaprine HCl 5 MG Oral Tablet (Flexeril) Take by mouth 1 Tablet in the morning AND 1 Tablet at noon AND 1 Tablet before bedtime. 30 Tablet 0 10/08/2021 3 Discontinue d(Medicatio n List Clean Up) diazePAM 2 MG Oral Tablet (Valium) TAKE 1 TAB BY MOUTH 1 HOUR PRIOR TO MRI, DO NOT DRIVE AFTER TAKING, DO NOT TAKE WITH OPIOID 0 05/03/2022 3 Discontinue d(Medicatio n List Clean Up) oxyCODONE HCl 5 MG Oral Tablet (Oxy IR)Indications:Cer vical myelopathy (HCC),Lumbar degenerative disc disease,Osteoarthr itis of spine with radiculopathy, cervical region Take 1 Tablet by mouth every 6 hours as needed for Pain, Severe. 60 Tablet 0 10/26/2022 3 Discontinue d(Refill) documented as of this encounter (statuses as of 11/26/2022) Active Problems Problem Noted Date COPD, group A, by GOLD 2017 classificati on 11/15/2022 Overview: Per COPD GOLD Classification Protein-calorie malnutrition 11/11/2022 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 Cervical myelopathy 10/09/2021 Coronary artery disease invo lving muckleshoot coronary artery without angina pectoris 10/08/2021 Preoperative [...] as of this encounter (statuses as of 11/26/2022) Resolved Problems Problem Noted Date Resolved Date [...] as of this encounter (statuses as of 11/26/2022) Immunizations Name Administration Dates Next Due COVID-19 [...] Former Cigarettes 1 35 Smokeless Tobacco: Never Tobacco Cessation:Counseling Given: Not Answered Comments:quit august 05 Alcohol Use Standard Drinks/Week [...] Sign Reading Time Taken Comments Blood Pressure 132/60 11/11/2022 4:54 PM EDT Pulse 70 11/11/2022 4:54 PM EDT Temperature 36.7 C (98 F) 11/11/2022 4:54 PM EDT Respiratory Rate 16 11/11/2022 4:54 PM EDT Oxygen Saturation 97% 11/11/2022 4:54 PM EDT Inhaled Oxygen Concentration - - Weight 62.1 kg (137 lb) 11/11/2022 4:54 PM EDT Height 170.2 cm (5' 7") 11/11/2022 4:54 PM EDT Body Mass Index 21.46 11/11/2022 4:54 PM EDT documented in this encounter Functional [...] No 10/07/2021 documented as of this encounter Patient Instructions * Patient Instructions* Radha BarneyDAQUAN - 11/11/2022 4:54 PM EDT Patient Instructions - Fall Prevention (This education is for all patients over 65 regardless of symptoms) Remember to take your current medications as prescribed. In order to prevent falls, you are encouraged to: Exercise Utilize assistive/adaptive devices Avoid multifocal lenses when walking Avoid hazards in home Maintain a regular toileting schedule Any questions please contact our office. Preventing Falls in the Home (This education is for all patients over 65 regardless of symptoms) As you get older, falls are more likely. Thats because your reaction time slows. Your muscles and joints may also get stiffer, making them less flexible. Illness, medications, and vision changes can also affect your balance. A fall could leave you unable to live on your own. To make your home safer, follow these tips: Floors Put nonskid pads under area rugs Remove throw rugs Replace worn floor coverings Tack carpets firmly to each step on carpeted stairs. Put nonskid strips on the edges of uncarpeted stairs Keep floors and stairs free of clutter and cords Arrange furniture so there are clear pathways Clean up any spills right away Bathrooms Install grab bars in the tub or shower Apply nonskid strips or put a nonskid rubber mat in the tub or shower Sit on a bath chair to bathe Use bathmats with nonskid backing Lighting Keep a flashlight in each room Put a nightlight along the pathway between the bedroom and the bathroom [employer] Patient Education Copyright 2008 - 2010 [employer] except where otherwise noted Preventing Falls: Exercises to Improve Balance, Flexibility, Strength, and Staying Power (This education is for all patients over 65 regardless of symptoms) Certain types of exercises may help make you less likely to fall. Try the ones below. Or do other exercises that your healthcare provider suggests. Depending on your health, you may need to start slowly. Dont let that stop you. Even small amounts of exercise can help you. Be sure to talk to yourhealthcare provider before starting any exercise program. Improve Balance Many types of exercise can help improve balance. Kei chi and yoga are good examples. Heres another one to try. You can do it anytime and almost anywhere. Stand next to a counter or solid support. Push yourself up onto your tiptoes. Hold for 5 seconds. If you start to lose your balance, hold on to the counter. Rest and repeat 5 times. Work up to holding for 20 to 30 seconds, if you can. Increase Flexibility Being more flexible makes it easier for you to move around safely. Try exercises like the seated hamstring stretch. Sit in a chair and put one foot on a stool. Straighten your leg and reach with both hands down either side of your leg. Reach as far down your leg as you can. Hold for about 20 seconds. Go back to the starting position. Then repeat 5 times. Switch legs. Build Strength Resistance exercises help build strength. You can do them without equipment. Or you can use weights, elastic bands, or special machines. One such exercise is called the biceps curl. You can hold a 1 pound weight or even a can of soup. Do this exercise at least 3 times a week. Strive for everyday. Sit up straight in a chair. Keep your elbow close to your body and your wrist straight. Bend your arm, moving your hand up to your shoulder. Then slowly lower your arm. Repeat 5 times. Switch to the other arm. Build Your Staying Power Aerobic exercises make your heart and lungs stronger so you can keep moving longer. Walking and swimming are two of the best types of exercises you can do. Using a stationary bike is great, too. Find an aerobic exercise that you enjoy. Start slowly and build up. Even 5 minutes is helpful. Aimfor a goal of 30 minutes, at least 3 times a week. You dont have to do 30 minutes in one session. Break it up and walk a little throughout the day. More Helpful Tips Start easy. Slowly work up to doing more. Talk with your healthcare provider about the best exercises for you. Call senior centers or health clubs about exercise programs. If needed, have a family member watch you walk every so often to check your stability. Exercise with a friend. Choose an activity you both enjoy. Try exercises that you can do anytime, anywhere. Here are two examples. Have someone with you when you first try these: Practice walking by placing one foot right in front of the other. Stand up and sit down 10 times. Repeat this throughout the day. [employer] Patient Education Copyright 2008 [employer] except where otherwise noted. Preventing Falls: Moving Safely Using a Cane or Walker (This education is for all patients over 65 regardless of symptoms) Keep the cane away from your feet so you dont trip. A walking aid, such as a cane or walker, can help you stay more independent and avoid falls. Remember to keep your walking aid within easy reach when youre in a chair or in bed. And learn how to use it safely so you dont injure yourself. Using a Cane If you have a stronger side, hold the cane on that side. Get your balance. Move the cane and your weaker leg forward. Support your weight on both the cane and your weaker side. Step with your stronger leg. Start again from step 1. If youre using a folding walker, be sure you know how to lock it open. Check that its locked open before each use. Using a Walker Roll the walker (or lift it, if youre using one without wheels) forward about 12 inches. Step forward with your weaker leg first. Use the walker to help keep your balance. Bring your other foot forward to the center of the walker. Start again from step 1. Helpful Tips Check with your healthcare provider about the right walking aid to use. Ask about a walker with a seat attached. Check the tips of your cane or walker to make sure they have nonskid covers. Move slowly from room to room. Dont delgado. Sit down to get dressed. Use a jennifer pack or backpack to keep your hands free. Get help for jobs that mean climbing, even on a stepstool. [employer] Patient Education Copyright 2008 - 2010 [employer] except where otherwise noted. Treating Urinary Incontinence in Men (This education is for all patients over 65 regardless of symptoms) You can't always control the release of urine. You may leak urine. Or you may not be able to hold your urine until you can get to a bathroom. This is called urinary incontinence. The problem can be managed. Talk to your doctor about your treatment options. Taking Medications Prescription medications may help you. They may: Help the sphincter to work better. (This is the muscle that closes to keep urine from leaking out of the bladder.) Help stop the bladder from josh too often to push urine out. Help the bladder muscles contract with more force. Help relax the sphincter muscle and allow urine to flow more freely. Making Changes to Your Routine Certain changes in your daily routine may help. These include: Avoiding caffeine and alcohol. Using timed voiding. This is following a schedule for drinking fluids and urinating. Doing Kegel exercises daily. These exercises involve tightening the muscles in your sphincter and around your bladder to help strengthen them. Your doctor can explain how to do them. Using a Catheter A catheter is a narrow tube that is inserted through the urethra into the bladder. It drains urine.A condom catheter covers the penis. It channels urine into a collection bag. It is worn most of thetime. Intermittent catheterization means inserting a catheter to drain the bladder, then removing it. This is done on a regular schedule. Having Surgery If other options don't work, surgery may be recommended. If surgery is an option, your healthcare provider can discuss it with you and explain its risks and benefits. Healing After Prostate Surgery Surgery on the prostate gland can cause incontinence. Most often, the incontinence is only for a short time. It clears up when healing is complete. Very rarely, prostate surgery can result in permanent incontinence. documented in this encounter Progress Notes * Marlon Soriano DO - 11/11/2022 5:35 PM EDT Images from the original note were not included. History of Present Illness Collin Tony is a 67 year old male that presents for Follow Up (Pt here for a 3m f/u) Patient is a 67-year-old male with history of cervical myelopathy, lumbar degenerative disc disease, osteoarthritis of the cervical spine with radiculopathy, right rotator cuff tendinitis, hypertension, coronary disease, peripheral vascular disease, COPD, narcotic bowel syndrome, CKD 3 and protein c alorie malnutrition. Patient complains of chronic neck and low back pain with difficulty ambulating. Patient complains of chronic right shoulder pain with decreased range of motion and pain radiatinginto right arm. Patient complains of chronic intermittent constipation associated with chronic opioid use.Patient denies fatigue fever chills or sweats. Patient denies nasal congestion sore throat orearache. Patient denies cough or sputum. Patient denies chest pain shortness breath palpitations oredema. Patient denies urinary frequency dysuria urgency or hematuria. Patient denies headache dizziness weakness or numbness. Patient complains of toenail fungus with difficulty trimming nails. Review systems otherwise negative Physical Exam Vitals: 11/11/22 1654 Temp: 36.7 C (98 F) Pulse: 70 Resp: 16 SpO2: 97% BP: 132/60 BMI: 21.45 General: alert, healthy, and no distress Head: Normocephalic, No masses, lesions, tenderness or abnormalities Eye Exam: PERRLA, extraocular movements intact, conjunctiva are pink and non- injected, sclera clear Ears: External ears normal, Canals clear, TM's Normal Nose: no mucosal erythema, no mucosal edema, no purulent discharge Oropharynx: no exudate, no erythema, lips, buccal mucosa, and tongue normal, and mucous membranes are moist Neck: supple, no adenopathy, no bruits, thyroid normal size, non-tender, without nodularity Lymph: no palpable lymphadenopathy Heart: regular rate & rhythm, no murmur, and no gallops Lungs: chest symmetric with normal AP diameter, no chest deformities noted, no chest wall tenderness, lungs clear to auscultation Pulses: carotid=2/4 w/o bruits Abdomen: abdomen soft, non-tender, normal bowel sounds, and no masses or organomegaly Back: back symmetric, no curvature, no costovertebral angle tenderness, cervical paravertebral muscle spasm and tenderness decreased range of motion rotation flexion C1-C7, lumbar paravertebral muscle spasm and tenderness decreased range of motion lumbar flexion L1-L5 Extremities: Tenderness palpation decreased range of motion flexion and abduction right shoulder, no edema cyanosis or clubbing Neuro Exam: alert & oriented x 3 with fluent speech, decreased motor strength bilateral lower extremities, hyperreflexia bilateral lower extremities, antalgic gait Skin: skin color, texture, turgor are normal, no rashes or significant lesions I have reviewed the following results: CBC and BMP Assessment and Plan Cervical myelopathy (HCC) Continue present medication Gabapentin 300 mg 1 cap AM, 2 caps noon and 2 caps p.m. Modified home physical therapy program - oxyCODONE HCl 5 MG Oral Tablet (Oxy IR); Take 1 Tablet by mouth every 6 hours as needed for Pain,Severe. Lumbar degenerative disc disease Continue present medication Gabapentin 300 mg 1 cap AM, 2 capsules then 2 caps p.m. Modified home physical therapy program - oxyCODONE HCl 5 MG Oral Tablet (Oxy IR); Take 1 Tablet by mouth every 6 hours as needed for Pain,Severe. Osteoarthritis of spine with radiculopathy, cervical region As above - oxyCODONE HCl 5 MG Oral Tablet (Oxy IR); Take 1 Tablet by mouth every 6 hours as needed for Pain,Severe. Rotator cuff tendonitis, right - XR SHOULDER, 2 OR MORE VIEWS - PHYSICAL THERAPY REFERRAL OP - ORTHOPAEDICS REFERRAL OP HTN, goal below 130/80 Continue present medication Amlodipine 10 mg 1 tab once daily - ALBUMIN / CREATININE RATIO, URINE; Future Coronary artery disease involving muckleshoot coronary artery of muckleshoot heart without angina pectoris Continue present medication Aspirin 81 mg 1 tab once daily Atorvastatin 20 mg 1 tab once daily - LIPID PANEL WITH DIRECT LDL IF TG IS HIGH; Future Peripheral vascular disease (HCC) Continue present medication Aspirin 81 mg 1 tab once daily Atorvastatin 20 mg 1 tab once daily COPD, severity to be determined (HCC) Stable Narcotic bowel syndrome (HCC) High-fiber diet, increase fluid intake Colace 100 mg 1 cap twice daily Protein-calorie malnutrition, unspecified severity (HCC) Dietary supplementation with boost or Ensure as directed Risk and functional assessment Stage 3b chronic kidney disease (HCC) Avoid NSAIDs Wrap-Up Time: I spent a total of 40-54 minutes (exact time 40 mins) on the date of service in preparation, delivery, and documentation of the care provided to Collin Tony excluding any time spent in the performance of separately billed services. documented in this encounter Plan of Treatment Upcoming Encounters Date Type Specialty Care Team Description 12/13/2022 Office Visit Orthopedics Farrukh Toure MD [address] [place] [address] 01/11/2023 Office Visit Cardiology Ana Lilia Graves CRNP [address] [place] [id number] 01/12/2023 Office Visit Pain Medicine Selina Myers PA-C [address] [place] [address] Scheduled Procedures Name Priority Associated Diagnoses Date/Ti me ESOPHAGOGASTRODUODENOSCOPY ( EGD), FLEXIBLE, TRANSORAL, DIAGNOSTIC Recall Adenomatous duodenal polyp COLONOSCOPY FLEXIBLE PROXIMAL DIAGNOSTIC Recall History of colon polyps Scheduled Referrals Name Type Priority Associated Diagnoses Order Schedule PHYSICAL THERAPY REFERRAL OP Referral Within 10 days (routine) Rotator cuff tendonitis, right Ordered: 11/11/2022 ORTHOPAEDICS REFERRAL OP Referral Within 10 days (routine) Rotator cuff tendonitis, right Ordered: 11/11/2022 PODIATRY REFERRAL OP Referral Within 10 d ays (routine) Onychomycosis Ordered: 11/11/2022 Health Maintenance Due Date Last Done Comments [...] this encounter Medical Devices Implanted Type Area Documentum Consultant Device Identifier Shelf Expiration Date Model / Serial / Lot Clip Quick 2.8mm 230cm - [id number] Implanted:Qty: 1 on 05/01/2020 by Augustin Bearden MD at ENDOSCOPY [facility] [employer] [facility] 06/04/2022 [id number] / [id number] documented as of this encounter Procedures Procedure Name Priority Date/Time Associated Diagnosis Comments XR SHOULDER, 2 OR MORE VIEWS Routine 11/17/2022 4:29 PM EDT Rotator cuff tendonitis, right ALBUMIN / CREATININE RATIO, URINE Routine 11/11/2022 5:59 PM EDT HTN, goal below 130/80 documented in this encounter Results * XR SHOULDER, 2 OR MORE VIEWS (11/17/2022 4:29 PM EDT) Anatomical Region Laterality Modality Upper Extremity, Shoulder Comput ed Radiography 11/19/2022 5:05 PM EDT Impressions 11/21/2022 12:31 PM EDT IMPRESSION 1. Moderate acromioclavicular osteoarthritis and mild glenohumeral osteoarthritis. I have personally reviewed this examination and agree with the resident/fellow physician's interpretation. Narrative 11/21/2022 12:31 PM EDT EXAM RIGHT XR SHOULDER, 2 OR MORE VIEWS HISTORY 59-year-old male with rotator cuff tendonitis right. TECHNIQUE Four views of the RIGHT shoulder. COMPARISON None. FINDINGS Mild glenohumeral and moderate acromioclavicular joint osteoarthritis. No acute fracture or dislocation. Arterial vascular calcifications. Procedure Note Ashu Sorensen, - 11/21/2022 EXAM RIGHT XR SHOULDER, 2 OR MORE VIEWS HISTORY 59-year-old male with rotator cuff tendonitis right. TECHNIQUE Four views of the RIGHT shoulder. COMPARISON None. FINDINGS Mild glenohumeral and moderate acromioclavicular joint osteoarthritis. Noacute fracture or dislocation. Arterial vascular calcifications. IMPRESSION IMPRESSION 1. Moderate acromioclavicular osteoarthritis and mild glenohumeralosteoarthritis. I have personally reviewed this examination and agree with the resident/fellow physician's interpretation. [facility] DO RADIOLOGY (RAD GENER AL) * LIPID PANEL WITH DIRECT LDL IF TG IS HIGH (11/17/2022 4:27 PM EDT) Triglycerides 106 <=174 mg/dL 11/18/2022 1:51 AM EDT [facility] [place]: Triglyceride Reference Ranges (mg/dL): <150 Acceptable 150-174 Borderline high 175-499 High >=500 Very high Cholesterol 141 <200 mg/dL 11/18/2022 1:51 AM EDT [facility] [place]: Total Cholesterol Reference Ranges (mg/dL): <200 Desirable 200-239 Borderline high >=240 High HDL Cholesterol 51 >39 mg/dL 1:51 AM EDT [facility] [place]: HDL Cholesterol Reference Ranges (mg/dL): >=60 High (Desirable) <50 Low (Undesirable) For Females <40 Low (Undesirable) For Males Non-HDL Cholesterol 90 <=159 mg/dL 11/18/2022 1:51 AM EDT [facility] [place]: Non-HDL Cholesterol Reference Range (mg/dL): <100 Target level for high risk ASCVD patient <130 Optimal for general population 130-159 Near optimal for general population 160-189 Borderline High 190-219 High >=220 Very High LDL Cholesterol 69 <=129 mg/dL 11/18/2022 1:51 AM EDT [facility] [place]: LDL Cholesterol Reference Ranges (mg/dL): <70 Target level for high risk ASCVD patient <100 Optimal for general population 100-129 Near optimal for general population 130-159 Borderline high 160-189 High >=190 Very high Blood Venous blood specimen / Unknown Venipuncture / Unknown 11/17/2022 4:27 PM EDT 11/17/2022 4:27 PM EDT [facility] DO LAB BLOOD ORDERABLES [facility] [address] [place] [address] * (ABNORMAL) ALBUMIN / CREATININE RATIO, URINE (11/11/2022 5:59 PM EDT) Albumin, Random Urine 54.28 mg/dL 11/12/2022 3:57 PM EDT [facility] [facility]inine, Random Urine 29 mg/dL 11/12/2022 3:57 PM EDT [facility] Albumin / Creatinine Ratio, Urine 1,872(H) <30 mg/g Creat 11/12/2022 3:57 PM EDT [facility] Urine Urine specimen obtained by clean catch procedure / Unknown Non-blood Collection / Unknown 11/11/2022 5:59 PM EDT 11/12/2022 7:16 AM EDT Narrative [facility] [place] 11/12/2022 3:57 PM EDT Normal: <30 mg/g creatinine High: 30-300 mg/g creatinine Very High: >300 mg/g creatinine Nephrotic: >2200 mg/g creatinine Marlon Soriano DO LAB URINE ORDERABLES [facility] [address] [place] [address] documented in this encounter Visit Diagnoses Diagnosis Cervical myelopathy (HCC)- Primary Cervical spondylosis with myelopathy Lumbar degenerative disc disease Degeneration of lumbar or lumbosacral intervertebral disc Osteoarthritis of spine with radiculopathy, cervical region Rotator cuff tendonitis, right HTN, goal below 130/80 Unspecified essential hypertension Coronary artery disease involving [place] coronary artery of [place] heart without angina pectoris Peripheral vascular disease (HCC) Peripheral vascular disease, unspecified COPD, severity to be determined (HCC) Chronic airway obstruction, not elsewhere classified Narcotic bowel syndrome (HCC) Protein-calorie malnutrition, unspecified severity (HCC) Risk and functional assessment Screening for unspecified condition Stage 3b chronic kidney disease (HCC) Onychomycosis Dermatophytosis of nail documented in this encounter Advance Directives Latest [...] and were consensually agreed upon. Care Teams Validation Architect Relationship Specialty Start Date End Date Marlon Soriano DO [address] [place] [address] PCP - General Family Medicine 01/07/19 documented as of this encounter
--- OUTSIDE RECORDS SUMMARY | 2023-05-08 05:41 | External Medical Summary | Summary of Care ---
Author Name Unknown Organization [facility] Address [address] [place] [address] Phone [phone] Care Team Providers Care Kitchen And Counter Worker Name Role Phone Marlon Santana DO Primary Care Provider [phone] Encounter Details Date Type Department Care Team [...] ase) 10/08/2021 Coronary artery disease invo lving [place] coronary artery without angina pectoris 10/08/2021 Preoperative [...] Yuan DO [address] [place] [address] 11/23/2022 Office Visit Neurological Surgery Rell Cornejo MD [address] [place], [place] [phone] 01/11/2023 Office Visit Cardiology Ana Lilia Graves CRNP [address] [place] [address] Scheduled Procedures Name Priority Associated Diagnoses Date/Ti [...] this encounter Medical Devices Implanted Type Area Business Mail Entry Clerk Device Identifier Shelf Expiration Date Model / Serial / Lot Clip Quick 2.8mm 230cm - [id number] Implanted:Qty: 1 on 05/01/2020 by Augustin Bearden MD at ENDOSCOPY [facility] [email or web address] [facility] 06/04/2022 HX-202UR.A / / [id number] documented [...] and were consensually agreed upon. Care Teams Kitchen And Counter Worker Relationship Specialty Start Date End Date Marlon Santana DO [address] [place] [address] PCP - General Family Medicine 01/07/19 documented as of this encounter
--- OUTSIDE RECORDS SUMMARY | 2023-05-08 05:41 | External Medical Summary | Summary of Care ---
Author Name Unknown Organization [facility] Address [address] [place] [address] Phone [phone] Care Team Providers Care Cuff Turner Machine Operator Name Role Phone Marlon Santana DO Primary Care Provider [phone] Encounter Details Date Type Department Care Team [...] ase) 10/08/2021 Coronary artery disease invo lving [place] coronary artery without angina pectoris 10/08/2021 Preoperative [...] Yuan DO [address] [place] [address] 11/23/2022 Office Visit Neurological Surgery Rell Cornejo MD [address] [place], [place] [phone] 01/11/2023 Office Visit Cardiology Ana Lilia Graves CRNP [address] [place] [address] Scheduled Procedures Name Priority Associated Diagnoses Date/Ti [...] this encounter Medical Devices Implanted Type Area Tentering Machine Off Bearer Device Identifier Shelf Expiration Date Model / Serial / Lot Clip Quick 2.8mm 230cm - [id number] Implanted:Qty: 1 on 05/01/2020 by Augustin Bearden MD at ENDOSCOPY [facility] [employer] To Get Approved For [facility] 06/04/2022 HX-202UR.A / / [id number] documented [...] and were consensually agreed upon. Care Teams Cuff Turner Machine Operator Relationship Specialty Start Date End Date Marlon Santana DO [address] [place] [address] PCP - General Family Medicine 01/07/19 documented as of this encounter
--- OUTSIDE RECORDS SUMMARY | 2023-05-08 05:41 | External Medical Summary | Summary of Care ---
Author Name Unknown Organization [facility] Address [address] [place] [address] Phone [phone] Care Team Providers Care Fruit Harvest Machine Operator Name Role Phone Marlon Santana [...] ase) 10/08/2021 Coronary artery disease invo lving [place] coronary artery without angina pectoris 10/08/2021 Preoperative [...] Yuan DO [address] [place] [address] 11/23/2022 Office Visit Neurological Surgery Rell Cornejo MD [address] [place], [place] [phone] 01/11/2023 Office Visit Cardiology Ana Lilia Graves CRNP [address] [place] [address] Scheduled Procedures Name Priority Associated Diagnoses Date/Ti [...] this encounter Medical Devices Implanted Type Area Papier Mache Molder Device Identifier Shelf Expiration Date Model / Serial / Lot Clip Quick 2.8mm 230cm - [id number] Implanted:Qty: 1 on 05/01/2020 by Augustin Bearden MD at ENDOSCOPY [facility] [employer] [facility] 06/04/2022 HX-202UR.A / / [id number] [...] and were consensually agreed upon. Care Teams Fruit Harvest Machine Operator Relationship Specialty Start Date End Date Marlon Santana DO [address] [place] [address] PCP - General Family Medicine 01/07/19 documented as of this encounter
--- OUTSIDE RECORDS SUMMARY | 2023-05-08 05:41 | External Medical Summary ---
Author Name Unknown Address Unknown Organization K01:[facility] [place] [address] [place] [address] Laboratory Report Ordering Provider Test Date Status GEOVANY SAUCEDO 11/11/2022 17:59:59 Final Normal: <30 mg/g creatinine< br/>High: 30-300 mg/g creatinine
Very High: >300 mg/g creatinine
Nephrotic: >2200 mg/g creatinine Observation Date Value Abnormality Reference (Units ) Status Albumin, Urine 11/11/2022 17:59:59 54.28 (mg/dL) Final Creatinine, Urine 11/11/2022 17:59:59 29 (mg/dL) Final Albumin/Creatinine [Mass Ratio] in Urine 11/11/2022 17:59:59 1872 Above high normal <30 (mg/g Creat) Final Performing Location LAB[facility]AT[facility] [place] [address] [place] [address]
--- OUTSIDE RECORDS SUMMARY | 2023-05-08 05:41 | External Medical Summary | Summary of Care ---
Author Name Unknown Organization [facility] Address [address] [place] [address] Phone [phone] Care Team Providers Care Overcaster Name Role Phone Marlon Santana DO Primary Care Provider [phone] Encounter Details Date Type Department Care Team [...] ase) 10/08/2021 Coronary artery disease invo lving [place] coronary artery without angina pectoris 10/08/2021 Preoperative [...] Yuan DO [address] [place] [address] 11/23/2022 Office Visit Neurological Surgery Rell Cornejo MD [address] [place], [place] [phone] 01/11/2023 Office Visit Cardiology Ana Lilia Graves CRNP [address] [place] [address] Scheduled Procedures Name Priority Associated Diagnoses Date/Ti [...] encounter Medical Devices Implanted Type Area It Consultant Device Identifier Shelf Expiration Date Model / Serial / Lot Clip Quick 2.8mm 230cm - [id number] Implanted:Qty: 1 on 05/01/2020 by Augustin Bearden MD at ENDOSCOPY [facility] [employer] [facility] 06/04/2022 HX-202UR.A / / [...] and were consensually agreed upon. Care Teams Overcaster Relationship Specialty Start Date End Date Marlon Santana DO [address] [place] [address] PCP - General Family Medicine 01/07/19 documented as of this encounter
--- OUTSIDE RECORDS SUMMARY | 2023-05-08 05:41 | External Medical Summary | Summary of Care ---
Author Name Unknown Organization [facility] Address [address] [place] [address] Phone [phone] Care Team Providers Care Procedures Tech Name Role Phone Marlon Santana DO Primary [...] ase) 10/08/2021 Coronary artery disease invo lving [place] coronary artery without angina pectoris 10/08/2021 Preoperative [...] Yuan DO [address] [place] [address] 11/23/2022 Office Visit Neurological Surgery Rell Cornejo MD [address] [place], [place] [phone] 01/11/2023 Office Visit Cardiology Ana Lilia Graves CRNP [address] [place] [address] Scheduled Procedures Name Priority Associated Diagnoses Date/Ti [...] this encounter Medical Devices Implanted Type Area Staff Command And Control Officer Device Identifier Shelf Expiration Date Model / Serial / Lot Clip Quick 2.8mm 230cm - [id number] Implanted:Qty: 1 on 05/01/2020 by Augustin Bearden MD at ENDOSCOPY [facility] [employer] [facility] 06/04/2022 HX-202UR.A / / [id number] documented [...] and were consensually agreed upon. Care Teams Procedures Tech Relationship Specialty Start Date End Date Marlon Santana DO [address] [place] [address] PCP - General Family Medicine 01/07/19 documented as of this encounter
--- OUTSIDE RECORDS SUMMARY | 2023-05-08 05:41 | External Medical Summary | Summary of Care ---
Author Name Unknown Organization [facility] Address [address] [place] [address] Phone [phone] Care Team Providers Care Cabinet Maker Name Role Phone Marlon Santana DO Primary Care Provider [phone] Encounter Details Date Type Department Care Team [...] ase) 10/08/2021 Coronary artery disease invo lving [place] coronary artery without angina pectoris 10/08/2021 Preoperative [...] Yuan DO [address] [place] [address] 11/23/2022 Office Visit Neurological Surgery Rell Cornejo MD [address] [place], [place] [phone] 01/11/2023 Office Visit Cardiology Ana Lilia Graves CRNP [address] [place] [address] Scheduled Procedures Name Priority Associated Diagnoses Date/Ti [...] this encounter Medical Devices Implanted Type Area Internet Site Designer Device Identifier Shelf Expiration Date Model / Serial / Lot Clip Quick 2.8mm 230cm - [id number] Implanted:Qty: 1 on 05/01/2020 by Augustin Bearden MD at ENDOSCOPY [facility] [employer] [facility] 06/04/2022 HX-202UR.A / / [id number] documented [...] and were consensually agreed upon. Care Teams Cabinet Maker Relationship Specialty Start Date End Date Marlon Santana DO [address] [place] [address] PCP - General Family Medicine 01/07/19 documented as of this encounter
--- OUTSIDE RECORDS SUMMARY | 2023-05-08 05:41 | External Medical Summary | Summary of Care ---
Author Name Unknown Organization [facility] Address [address] [place] [address] Phone [phone] Care Team Providers Care Shotgun Shell Assembly Machine Adjuster Name Role Phone Marlon Santana DO Primary Care Provider Reason for Visit * Reason Onset Date Comments Encounter Created in Error 11/12/2022 Encounter Details Date Type Department Care Team Description 11/12/2022 Telephone Family Practice [facility] [address] [facility] [place] [address] Marlon Santana DO [address] [facility] [place] [address] Encounter Created in Error (/) Allergies No known active allergiesdocumented as of [...] ase) 10/08/2021 Coronary artery disease invo lving [place] coronary artery without angina pectoris 10/08/2021 Preoperative [...] Yuan DO [address] [place] [address] 11/23/2022 Office Visit Neurological Surgery Rell Cornejo MD [address] [place] [address] 01/11/2023 Office Visit Cardiology Ana Lilia Grvaes CRNP [address] [place] [address] Scheduled Procedures Name Priority Associated Diagnoses Date/Ti [...] VERIFIED BY PFT 10/10/2021 Albumin/Creatinine Ratio 09/23/2022 09/24/2019 Influenza Vaccine (FLU shot) (#1) 2022 01/14/2021, [...] this encounter Medical Devices Implanted Type Area Rotary Shear Cutter Device Identifier Shelf Expiration Date Model / Serial / Lot Clip Quick 2.8mm 230cm - [id number] Implanted:Qty: 1 on 05/01/2020 by Augustin Bearden MD at ENDOSCOPY [facility] [employer] 06/04/2022 HX-202UR.A / / [id number] documented as [...] and were consensually agreed upon. Care Teams Shotgun Shell Assembly Machine Adjuster Relationship Specialty Start Date End Date Marlon Santana DO [address] [place] [address] PCP - General Family Medicine 01/07/19 documented as of this encounter
--- OUTSIDE RECORDS SUMMARY | 2023-05-08 05:41 | External Medical Summary | Summary of Care ---
Author Name Unknown Organization [facility] Address [address] [place] [address] Phone [phone] Care Team Providers Care Latent Print Examiner Name Role Phone Marlon Santana DO Primary Care Provider [phone] Reason for Referral * Evaluate & Treat - Unlimited Visits (Within 10 days (routine)) - Pending Review Specialty Diagnoses / Procedures Referred By Lizet meehan Referred To Contact Nephrology Diagnoses Benign hypertension with CKD (chronic kidney disease) stage III (HCC) Microalbuminuria Marlon Santana DO [address] [place] [address] Referral ID Status Reason Start Date Expiration Date Visits Requested Visits Authorized [id number] Pending Review Specialty Services Required 11/27/[phone] Question Answer Referral Priority Within 10 days (routine) What condition is this patient being seen for? Chronic kidney disease Reason for Visit * Reason Onset Date Comments Test Results 11/27/2022 Encounter Details Date Type Department Care Team Description 11/27/2022 Telephone Family Practice [facility] [address] [place] [address] Marlon Santana DO [address] [place] [address] Test Results Allergies No known active allergiesdocumented as of this encounter (statuses as of 11/27/2022) Medications Medication Sig Dispensed Refills Start Date [...] as of this encounter (statuses as of 11/27/2022) Active Problems Problem Noted Date COPD, group A, by GOLD 2017 classificati on 11/15/2022 Overview: Per COPD GOLD Classification Protein-calorie malnutrition 11/11/2022 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 Cervical myelopathy 10/09/2021 Coronary artery disease invo lving [place] coronary artery without angina pectoris 10/08/2021 Preoperative [...] as of this encounter (statuses as of 11/27/2022) Resolved Problems Problem Noted Date Resolved Date [...] as of this encounter (statuses as of 11/27/2022) Immunizations Name Administration Dates Next Due COVID-19 [...] Encounter - Marlon Santana DO - 11/27/2022 4:11 PM EDT Lab studies shows elevated urine microalbumin . Advise start lisinopril 10 mg 1 tab once daily. Advise referral to cooler servicer for further evaluation treatment Advise repeat lab for BMP documented in this encounter Plan of Treatment Upcoming Encounters Date Type Specialty Care Team Description 12/13/2022 Office Visit Orthopedics Farrukh Toure MD [address] [place] [address] 01/11/2023 Office Visit Cardiology Ana Lilia Graves CRNP [address] [place] [address] 01/12/2023 Office Visit Pain Medicine DaySelina PA-C [address] [place] [address] Scheduled Orders Name Type Priority Associated Diagnoses Orde r Schedule US RENAL Medical Imaging Routine Benign hypertension with CKD (chronic kidney disease) stage III (HCC) Microalbuminuria Expected: 11/27/2022, Expires: 12/28/2023 BASIC METABOLIC PANEL Lab Routine Benign hypertension with CKD (chronic kidney disease) stage III (HCC) Microalbuminuria Expected: 11/27/2022 (Approximate), Expires: 11/27/2023 Scheduled Procedures Name Priority Associated Diagnoses Date/Ti me ESOPHAGOGASTRODUODENOSCOPY ( EGD), FLEXIBLE, TRANSORAL, DIAGNOSTIC Recall Adenomatous duodenal polyp COLONOSCOPY FLEXIBLE PROXIMAL DIAGNOSTIC Recall History of colon polyps Scheduled Referrals Name Type Priority Associated Diagnoses Orde r Schedule NEPHROLOGY REFERRAL OP Referral Within 10 days (routine) Benign hypertension with CKD (chronic kidney disease) stage III (HCC) Microalbuminuria Ordered: 11/27/2022 Health Maintenance Due Date Last Done Comments [...] this encounter Medical Devices Implanted Type Area Impact Retail Service Merchandiser Device Identifier Shelf Expiration Date Model / Serial / Lot Clip Quick 2.8mm 230cm - [id number] Implanted:Qty: 1 on 05/01/2020 by Augustin Bearden MD at ENDOSCOPY [facility] [employer] [facility] 06/04/2022 HX-202UR.A / / [id number] documented as of this encounter Visit Diagnoses Diagnosis Benign hypertension with CKD (chronic kidney disease) stage III (HCC)- Primary Benign hypertensive kidney disease with chronic kidney disease stage I through stage IV, or unspecified Microalbuminuria Proteinuria documented in this encounter Advance Directives Latest [...] and were consensually agreed upon. Care Teams Latent Print Examiner Relationship Specialty Start Date End Date Marlon Santana DO [address] [place] [address] PCP - General Family Medicine 01/07/19 documented as of this encounter
--- OUTSIDE RECORDS SUMMARY | 2023-05-08 05:41 | External Medical Summary | Summary of Care ---
Author Name Unknown Organization [facility] Address [address] [place] [address] Phone [phone] Care Team Providers Care Health And Wellness Sales Consultant Name Role Phone Marlon Santana DO Primary Care Provider Reason for Referral * Evaluate & Treat - Unlimited Visits (Within 10 days (routine)) - Pending Review Specialty Diagnoses / Procedures Referred By Lizet meehan Referred To Contact Physical Therapy / Physical Medicine And Rehab Diagnoses Rotator cuff arthropathy of right shoulder Harjit Yuan DO [address] [facility] [place] [address] Referral ID Status Reason Start Date Expiration Date Visits Requested Visits Authorized [id number] Pending Review Specialty Services Required 11/22/[phone] Question Answer Referral Priority Within 10 days (routine) Comments Right rotator cuff arthropathy 2-3 times per week for 6 weeks. Include periscapular stabilization. Include home exercise program. Reason for Visit * Reason Comments NEW PATIENT R shoulder * Evaluate & Treat - Unlimited Visits (Within 10 days (routine)) - Pending Review Specialty Diagnoses / Procedures Referred By Lizet meehan Referred To Contact Orthopaedic Surgery / Orthopedics Diagnoses Rotator cuff tendonitis, right Marlon Santana DO [address] [place] [id number] Referral ID Status Reason Start Date Expiration Date Visits Requested Visits Authorized [id number] Pending Review Specialty Services Required 11/11/[phone] Encounter Details Date Type Department Care Team Description 11/22/2022 Office Visit Orthopaedics [facility] [address] [place] [address] Harjit Yuan, [address] [place] [address] Rotator cuff arthropathy of right shoulder* Allergies No known active allergiesdocumented as of this encounter (statuses as of 11/22/2022) Medications Medication Sig Dispensed Refills Start Date [...] as of this encounter (statuses as of 11/22/2022) Active Problems Problem Noted Date COPD, group A, by GOLD 2017 classificati on 11/15/2022 Overview: Per COPD GOLD Classification Protein-calorie malnutrition 11/11/2022 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 Cervical myelopathy 10/09/2021 Coronary artery disease invo lving 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 Patienthas an unfortunate complicated history including cervical myelopathy with surgery being approximally years ago. Patient seen examined with in room today. states that since his spine surgeryhe is primarily wheelchair-bound and will occasionally use his upright walker for ambulation while in the home. His right shoulder became painful approximally 1 month ago which the attributes tohim slouching in his chair at home as well as in his wheelchair. This was observed today during thevisit. They deny any known acute traumatic events to his right upper extremity. He reports that he is had bilateral numbness and tingling in both of his upper extremities since his surgeries with hisright being more severe. He is not had any physical therapy or injections into his right shoulder. He continues to be in therapy for his ambulatory issues however there not been working on his right shoulder at all. notes that they have a follow up with his spine surgeon in [place] tomorrow. Past Surgical History: Procedure Laterality Date CAROTID (INTERNAL) ARTERY CATHETHER PLACEMENT Bilateral 06/29/2021 CATHETER PLACEMENT INTERNAL CAROTID ARTERY performed by Pan Jeffers MD [place] [facility] CHEST TUBE INSERTION Right 04/18/2015 pnuemothorax, due to rt rib fx COLONOSCOPY, DIAGNOSTIC (RECTUM) 01/15/2020 hyperplastic polyp, repeat 5 yrs / COLONOSCOPY FLEXIBLE PROXIMAL DIAGNOSTIC performed by Lidia Mayers MD at ENDOSCOPY [facility] EGD, FLEXIBLE, DIAGNOSTIC 01/15/2020 TA duodenal polyp / ESOPHAGOGASTRODUODENOSCOPY (EGD), FLEXIBLE, TRANSORAL, DIAGNOSTIC performed by Lidia Mayers MD at ENDOSCOPY [facility] EGD, FLEXIBLE, DIAGNOSTIC N/A 05/01/2020 adenomatous duodenal polyp, hiatal hernia, repeat 6 mo / ESOPHAGOGASTRODUODENOSCOPY (EGD), FLEXIBLE, TRANSORAL, DIAGNOSTIC performed by Augustin Bearden MD at [facility]OSCOPY [facility] EGD, FLEXIBLE, DIAGNOSTIC 11/12/2020 normal bx, hiatal hernia, repeat 1 yr / ESOPHAGOGASTRODUODENOSCOPY (EGD), FLEXIBLE, TRANSORAL, DIAGNOSTIC performed by Augustin Bearden MD at ENDOSCOPY [facility] INSERTION OF LENS PROSTHESIS Bilateral REMOVE NECK SPINE LAMINA, 1 SEG N/A 10/07/2021 LAMINECTOMY FACETECTOMY AND FORAMINOTOMY POSTERIOR CERVICAL performed by Rell Cornejo [facility] [place] [facility] VERTEBRAL ARTERY CATHETER PLACEMENT Bilateral 06/29/2021 CATHETER PLACEMENT VERTEBRAL ARTERY, performed by aPn Jeffers MD at [place] [facility] Review of patient's allergies indicates: No Known Allergies Current Outpatient Medications Medication Sig Dispense Refill [...] TAKE 1 TABLET BY MOUTH TWICE A [id number] Tablet 1 [facility] B-1 100 MG Oral [...] No current facility-administered medications for this visit. 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 Employer: [employer] Tobacco Use Smoking status: Former Packs/day: 1.00 Years: 35.00 Pack years: 35.00 Types: Cigarettes Smokeless tobacco: Never Tobacco comments: quit august 05 Vaping Use Vaping Use: Never used Substance and Sexual Activity Alcohol use: Not Currently Alcohol/week: 5.0 standard drinks Types: 6 12 oz of beer per week Drug use: No Sexual activity: Not Currently Social Determinants of Health Food Insecurity: No Food Insecurity Worried About Running Out of Food in the Last Year: Never true Ran Out of Food in the Last Year: Never true Family History Problem Relation Age of Onset Heart disease Mother 90 Stroke Mother Lung cancer Father 69 Heart disease Sister valve Heart disease Brother Other (throat cancer) Brother No Past Hx None pt denies Past Medical History: Diagnosis Date Collapse, lung 2009 around s/p fall, rib fracture 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 Spinal. Fracture of rib of left side 08/2011 Tobacco abuse ROS: Constitional: No change in weight, No weakness, No fatigue, and No fevers, sweats, or chills Skin: No edema, No rash, and No itching Psychiatric: No depression, No anxiety, and No psychosis HEENT: Normal Cardiovascular: Normal Pulmonary: Normal Gastrointestinal: Normal Genitourinary: Normal Endocrine/Metabolic: Normal Neurologic: Normal Musculoskeletal: Normal Hematologic: Normal All other systems are negative PHYSICAL EXAM: General: thin and in no acute distress HEENT: normocephalic, atraumatic, EOMI, sclera anicteric. Psych: mood and affect normal , cooperative Card: Peripheral pulses: normal in affected extremity (s) Resp: equal chest rise, non-tachypneic, non-labored breathing Skin: no rash, normal Neuro: Coordination: normal; Sensation: Reports numbness and tingling in his bilateral upper extremity primarily in all of his digits Skin: No problem and normal. C-Spine evaluation: Does patient have neck symptoms and/or numbness/tingling in upper extremities: yes - Pain with active ROM: Inspection: RIGHT AC joint prominence and right trapezium elevated compared to left Tenderness/Location: yes - SS and Traps/Levs Right Shoulder: NVI axillary/med/rad/uln nerve sensation grossly intact Shoulder ROM: AROM: FF: 90 with pain R shoulder 150 L shoulder Abduction: 60 R shoulder 80 L shoulder ER at 0 degrees: 40 R shoulder 40 L shoulder IR: midline R shoulder midline L shoulder PROM: FF R to 130 without pain Strength: ABD: Right - 4/5 Left - 4/5 ER: Right - 4/5 Left - 4/5 IR: Right - 4+/5 Left - 4+/5 Biceps: Right - 5/5 Left - 5/5 "Empty can": Right - 4/5 Left - 4/5 AIN/PIN/Uln N 5/5 Pain with resisted FF in the forearm in pronation: negative Neutral: negative Supination:negative Yergason's: negative TTP ACJ:negative TTP LHB: negative Hawkin's impingement sign: negative positive scapular dyskinesis Drop-arm test: positive IMAGING Studies: I personally reviewed the images with the patient. XRAYS: Right shoulder AP/grashey/scapular Y/axillary: Performed 11/17/2022 demonstrate per my interpretation no acute osseous abnormality with mild to moderate acromioclavicular and glenohumeral arthritis. High-riding humeral head noted. Impression: M12.811 Rotator cuff arthropathy of right shoulder (primary encounter diagnosis) Plan: We discussed the diagnosis and treatment options with the patient today. I reviewed the x-rays directly with the patient and his today in clinic. Discussed that I recommend conservative treatment in the form of physical therapy for his right shoulder at this time. The patient and expressed agreement with this plan and are not interested in any surgical intervention now or in the near future. He has a follow up appointment with his spine surgeon tomorrow in [place] which I encouraged the patient and to attend. I will defer any injection therapy at this point. I discussed with the patient and his my recommendation for [id number] Voltaren gel and/or ice packs which have worked with the patient in the past. He will be sent for physical therapy for 6 weeks and is welcome to follow up with me or primary care sports medicine for consideration of corticosteroid injections in the future. Patient and expressed understanding of the treatment plan and were in agreement. Harjit Yuan, DO Orthopaedics [address] [place] [address] Orthopedic Sports Medicine Surgery 11/22/2022 2:10 PM This chart was completed in part utilizing Subtext Speech Voice Recognition Software. Grammatical errors, random word insertions, pronoun errors, and incomplete sentences are an occasional consequence of this system due to software limitations, ambient noise, and hardware issues. Any formal questions or concerns about the content, text, or information contained within the body of this dictation should be directly addressed to the provider for clarification. documented in this encounter Nursing Notes * Shea Coleman LPN - 11/22/2022 1:32 PM EDT R hand dominant pt presents for new visit, referred by PCP. Pain in R shoulder x 1 month, denies fall or injury. States most of the pain is located in the upper R arm. Had x-ray 11/17/2022. Is using ice; has not tried ibuprofen, is unsure if it would interact with pt's other meds. documented in this encounter Plan of Treatment Upcoming Encounters Date Type Specialty Care Team Description 11/23/2022 Office Visit Neurological Surgery Rell Cornejo MD [address] [place] [facility] [place] [address] 01/11/2023 Office Visit Cardiology Ana Lilia Graves CRNP [address] [place] [address] Scheduled Procedures Name Priority Associated Diagnoses Date/Ti me ESOPHAGOGASTRODUODENOSCOPY ( EGD), FLEXIBLE, TRANSORAL, DIAGNOSTIC Recall Adenomatous duodenal polyp COLONOSCOPY FLEXIBLE PROXIMAL DIAGNOSTIC Recall History of colon polyps Scheduled Referrals Name Type Priority Associated Diagnoses Orde r Schedule PHYSICAL THERAPY REFERRAL OP Referral Within 10 days (routine) Rotator cuff arthropathy of right shoulder Ordered: 11/22/2022 Health Maintenance Due Date Last Done Comments [...] this encounter Medical Devices Implanted Type Area Workers' Compensation Hearings Officer Device Identifier Shelf Expiration Date Model / Serial / Lot Clip Quick 2.8mm 230cm - [id number] Implanted:Qty: 1 on 05/01/2020 by Augustin Bearden MD at ENDOSCOPY [facility] [employer] [facility] 06/04/2022 [id number]-[id number] / [id number] documented as of this encounter Visit Diagnoses Diagnosis Rotator cuff arthropathy of right shoulder- Primary documented in this encounter Advance Directives Latest [...] and were consensually agreed upon. Care Teams Health And Wellness Sales Consultant Relationship Specialty Start Date End Date Marlon Santana DO [address] [place] [address] PCP - General Family Medicine 01/07/19 documented as of this encounter
--- OUTSIDE RECORDS SUMMARY | 2023-05-08 05:41 | External Medical Summary | Summary of Care ---
Author Name Unknown Organization [facility] Address [address] [place] [address] Phone [phone] Care Team Providers Care Backwinder Name Role Phone Marlon Santana DO Primary Care Provider Reason for Referral * Evaluate & Treat - Unlimited Visits (Within 10 days (routine)) - Pending Review Specialty Diagnoses / Procedures Referred By Lizet meehan Referred To Contact Neuro/Ortho Surgery - Spine. / Neurological Surgery Diagnoses Spinal stenosis of lumbar region with neurogenic claudication Marlon Santana DO [address] [place] [address] Referral ID Status Reason Start Date Expiration Date Visits Requested Visits Authorized [id number] Pending Review Specialty Services Required 11/15/[phone] Question Answer Referral Priority Within 10 days (routine) Select spine region: Back - Thoracic/Lumbar Do you have any recent complete loss of bladder or bowel function? No Reason for Visit * Reason Onset Date Comments Referral Requested by Specialist 11/15/2022 Rferral request Encounter Details Date Type Department Care Team Description 11/15/2022 Telephone Family Practice [facility] [address] [place] [address] Marlon Santana DO [address] [place] [address] Referral Requested by Specialist (Rferral ... 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 Cervical myelopathy 10/09/2021 COPD (chronic obstructive pulmonary dise ase) 10/08/2021 Coronary artery disease invo lving [place] coronary artery without angina pectoris 10/08/2021 Preoperative [...] as of this encounter (statuses as of 11/16/2022) Resolved Problems Problem Noted Date Resolved Date Stage 3a chronic kidney disease 01/14/2020 01/17/2020 Overview: Per CKD protocol - Per CKD protocol Kidney disease, chronic, stage III (GFR 30-59 ml /min) 08/13/2019 01/17/2020 Overview: Per CKD protocol Fracture of rib of left side 08/06/2011 NO KNOWN PROBLEMS 11/30/2006 10/27/2011 documented as of this encounter (statuses as of 11/16/2022) Immunizations Name Administration Dates Next Due COVID-19 [...] * Telephone Encounter - Shea Soler - 11/16/2022 6:42 AM EDT Already scheduled * Telephone Encounter - Marlon Santana DO - 11/15/2022 5:52 PM EDT Spine surgery referral authorized as requested * Telephone Encounter - Neuro Referral [facility] - 11/15/2022 10:31 AM EDT Your patient has an upcoming neurology/ neurosurgery appointment. Their insurance requires an active referral be on file. Please sign pended referral order to ensure we comply with insurance requirements.? Please do not reply to sender, this is an automated message. The mailbox is not monitored. documented in this encounter Plan of Treatment Upcoming Encounters Date Type Specialty Care Team Description 11/22/2022 Office Visit Orthopedics Harjit Yuan DO [address] [place] [address] 11/23/2022 Office Visit Neurological Surgery Rell Cornejo MD [address] [place] [address] 01/11/2023 Office Visit Cardiology Ana Lilia Graves CRNP [address] [place] [address] Scheduled Procedures Name Priority Associated Diagnoses Date/Ti me ESOPHAGOGASTRODUODENOSCOPY ( EGD), FLEXIBLE, TRANSORAL, DIAGNOSTIC Recall Adenomatous duodenal polyp COLONOSCOPY FLEXIBLE PROXIMAL DIAGNOSTIC Recall History of colon polyps Scheduled Referrals Name Type Priority Associated Diagnoses Orde r Schedule SPINE SURGERY REFERRAL OP Referral Within 10 days (routine) Spinal stenosis of lumbar region with neurogenic claudication Ordered: 11/15/2022 Health Maintenance Due Date Last Done Comments [...] this encounter Medical Devices Implanted Type Area Wheel Truer Device Identifier Shelf Expiration Date Model / Serial / Lot Clip Quick 2.8mm 230cm - [id number] Implanted:Qty: 1 on 05/01/2020 by Augustin Bearden MD at [facility]COPY [facility] [employer] [facility] 06/04/2022 [id number] / [id number] documented as of this encounter Visit Diagnoses Diagnosis Spinal stenosis of lumbar region with neurogenic claudication- Primary Spinal stenosis, lumbar region, with neurogenic claudication [...] and were consensually agreed upon. Care Teams Backwinder Relationship Specialty Start Date End Date Malron Santana DO [address] [place] [address] PCP - General Family Medicine 01/07/19 documented as of this encounter
[2023-05-08] MEDS: SODIUM CHLORIDE 0.9% 1,000 ML IV SCH ×2 (05:54→07:27)
[2023-05-08] MEDS: CEFEPIME 2,000 MG/20 ML VIAL IV STA (05:54)
[2023-05-08] MEDS: RAPID SEQUENCE INDUCTION BAG ONE (06:14)
[2023-05-08] MEDS ORDERED: VANCOMYCIN CONSULT ACTIVE PRN (06:24)
[2023-05-08] MEDS: VANCOMYCIN HCL 1,250 MG in SODIUM CHLORIDE 0.9% 250 ML IV STA (06:35)
[2023-05-08 06:42] LABS: Base Excess ABG -6.7 mEq/L (-9-1.8); HCO3 ABG 17 mmol/L (19-24); Oxygen Saturation ABG 95.1 % (90-95); PCO2 ABG 30 mmHg (35-46); PO2 ABG 71 mmHg (80-95); pH ABG 7.37 (7.35-7.45)
[2023-05-08 06:42] LABS: Albumin Level 3.7 gm/dl (3.4-5.0); Bilirubin Direct 0.3 mg/dl (0-0.2); Calcium 8.8 mg/dl (8.6-10.3); Creatinine Clr Calc Pharmacy 31.5 ml/min; Est GFR (African American) 42.7 ml/min; Est GFR (Non-African American) 36.8 ml/min; Magnesium 1.6 mg/dl (1.7-2.4); Potassium 4.2 mmol/L (3.5-5.1); Total Protein 6.8 gm/dl (6.0-8.3)
[2023-05-08 06:43] LABS: Allen Test Pos (Pos)
[2023-05-08 06:44] LABS: Hematocrit (blood only) 48.6 % (42.0-52.0); Hemoglobin 15.6 g/dl (14.0-18.0); Mean Corpuscular Hemoglobin 29.2 pg (25.0-34.0); Mean Corpuscular Hgb Conc 32.1 g/dL (32.0-36.0); Mean Platelet Volume 10.3 fL (9.4-12.4); Platelet Count 434 K/uL (130-400); RDW Coefficient of Variation 15.2 % (11.5-14.5); RDW Standard Deviation 49.2 fL (36.4-46.3); Red Blood Count 5.34 M/uL (4.70-6.10); White Blood Count 31.37 K/ul (4.8-10.8)
[2023-05-08] MEDS: methylPREDNISolone 125 MG/2 ML VIAL IV STA (06:51)
[2023-05-08 07:03] LABS: Basophils # (auto) 0.26 K/uL (0.00-0.20); Basophils % (auto) 0.8 %; Eosinophils # (auto) 0.07 K/uL (0.00-0.50); Eosinophils % (auto) 0.2 %; Immature Granulocytes % (auto) 1.3 %; Lymphocytes # (auto) 2.43 K/uL (1.20-3.40); Lymphocytes % (auto) 7.7 %; Monocytes % (auto) 6.4 %; Neutrophils # (auto) 26.21 K/uL (1.40-6.50); Neutrophils % (auto) 83.6 %
[2023-05-08 07:06] LABS: Adenovirus PCR Not Detected (NotDetected); Bordetella parapertussis PCR Not Detected (NotDetected); Bordetella pertussis PCR Not Detected (NotDetected); Chlamydia pneumoniae PCR Not Detected (NotDetected); Coronavirus 229E PCR Not Detected (NotDetected); Coronavirus CoV-2 (COVID19)PCR Not Detected (NotDetected); Coronavirus HKU1 PCR Not Detected (NotDetected); Coronavirus NL63 PCR Not Detected (NotDetected); Coronavirus OC43PCR Not Detected (NotDetected); Human Metapneumovirus PCR Not Detected (NotDetected); Influenza A PCR Not Detected (NotDetected); Influenza B PCR Not Detected (NotDetected); Mycoplasma pneumoniae PCR Not Detected (NotDetected); Parainfluenza Virus 1 PCR Not Detected (NotDetected); Parainfluenza Virus 2 PCR Not Detected (NotDetected); Parainfluenza Virus 3 PCR Not Detected (NotDetected); Parainfluenza Virus 4 PCR Not Detected (NotDetected); Respiratory Syncytial VirusPCR Not Detected (NotDetected); Rhinovirus/Enterovirus PCR Not Detected (NotDetected)
[2023-05-08 07:15] LABS: Troponin I High Sensitivity 149.5 pg/ml (0-20)
--- NOTE | 2023-05-08 07:25 | XRay Report ---
XR chest 1V portable HISTORY: 67 years-old Male Sepsis acute sepsis COMPARISON: 10/11/2021 TECHNIQUE: AP view of the chest FINDINGS: Cardiomediastinal and hilar silhouettes are within normal limits. No pneumothorax, pleural effusion o r overt pulmonary edema. There are new patchy right lung base airspace opacities. Bones appear grossl y intact. IMPRESSION: Right basilar pneumonia. ACT 112: Negative or not required by law. The above report was generated using voice recognition software. It may contain grammatical, syntax o r spelling errors. Electronically signed by: Rigo Baptiste M.D. 05/08/2023 7:24 AM
[2023-05-08] MEDS: SODIUM CHLORIDE 0.9% 500 ML IV SCH (07:27)
[2023-05-08] MEDS: MAGNESIUM SULFATE / D5W 1 GM/100 ML BAG IV SCH (07:27)
[2023-05-08 07:47] LABS: INR 1.1 (0.9-1.1); Partial Thromboplastin Ratio 0.9; Partial Thromboplastin Time 26 Seconds (21-31); Prothrombin Time 11.5 Seconds (9.0-12.0)
--- NOTE | 2023-05-08 08:21 | Emergency Department Note ---
Impression & Plan Hypoxia, Pneumonia, Respiratory failure, Elevated troponin, Severe sepsis Admit to the [facility] ED Provider Note NAME: GEORGIE NOBLE AGE: 67 SEX: Male INFORMANT: Patient ED PROVIDER(S): Cathy Pal DO CHIEF COMPLAINT: Altered mental status PLAN: Disposition: Admit to the [facility] MEDICAL DECISION MAKING: This is a 67-year-old male patient with a history of COPD who presents to the emergency department with altered mental status, extreme weakness and a fever. The patient was significantly hypoxic for EMS in moderate respiratory distress. O2 saturations were supported with a nonrebreather mask. His presentation was consistent with severe sepsis. Chest x-ray revealed evidence of a right lower lobe pneumonia. Complete septic protocol was performed. The patient was bolused with IV normal saline solution up to 2 L. Laboratory studies revealed a white blood cell count of 31.3 H&H were stable. Coagulation studies were normal. BUN was 24 and creatinine was 1.8. Glucose was 101. Troponin was elevated at 248. Procalcitonin was 4.6 and lactic acid was 1.5. Bio fire testing was negative. Patient was given a dose of IV Solu-Medrol for his COPD history and treated with IV cefepime. ABG was performed and revealed a pH of 7.37, pCO2 of 33, bicarb of 19 and a pO2 of 83. I discussed the case with the [facility] and they will evaluate for further inpatient care. Care/management discussed with: The patient's , the retail district manager and the [facility] Triage Nursing notes: Reviewed and agree with them. Vital Signs: reviewed and remarkable for fever and tachycardia as well as tachypnea Additional History obtained from: EMS and the patient's Chronic Medical/Social Conditions affecting care: COPD Differential Diagnosis: Bronchitis, pneumonia, COPD, respiratory failure, CHF, cardiac ischemia Diagnostics, independently interpreted by me: ECG: Sinus tachycardia at a rate of 156 with a poor baseline. There is no ST segment elevation or signs of ischemia. There is no ectopy. Cardiac Monitoring: Sinus tachycardia at 142 Imaging studies: Portable chest [id number] changes with a right lower lobe opacity HPI: 67 year old Male arrives for evaluation of weakness and shortness of breath. Patient awoke from sleep around 3:00 in the morning with shortness of breath and very hot skin. noted the patient was extremely weak. He asked her to call EMS. Upon EMS arrival, they found his O2 saturation to be in the 70s on room air. He was placed on supplemental oxygen. She was concerned that he may have developed an infection and a wound on his right hip/buttock. She explains that he has not been getting out of bed over the past 24-36 hours. He has a history of COPD and has had an increased cough. PAST MEDICAL HISTORY: See Below, PAST SURGICAL HISTORY: See Below, SOCIAL HISTORY: Lives with his , HOME MEDICATIONS: See list ALLERGIES: None VITALS: See Below PHYSICAL EXAMINATION: HEENT: Head - normocephalic and atraumatic. Pupils are equal, round, and reactive to light. Extraocular eye muscles are intact, and sclera are anicteric. Nose - moist nasal mucosa without discharge. Mouth - moist buccal mucosa. Oropharynx is nonerythematous and there is no tonsillar exudate or edema noted. Neck: Supple; no JVD or cervical lymphadenopathy Heart: Tachycardic rate with irregular rhythm there is a normal S1 and S2 with no murmurs, clicks, or gallops appreciated. Lungs: Rhonchi in both lung bases with the right being worse than the left Abdomen: Soft, completely nontender, nondistended, with good bowel sounds. There are no palpable pulsatile masses or hepatosplenomegaly. There is no guarding, rigidity, or rebound noted. Extremities: No evidence of cyanosis, clubbing, or edema. There are easily palpable peripheral pulses. Skin: Pale, warm and dry with good turgor and no rashes. Small ulceration noted on the right hip. This does not appear to be infected. Emergency department treatment: secured entrance monitor, IV normal saline bolus, supplemental oxygen, IV cefepime, IV Solu-Medrol Emergency department course: The patient was quickly evaluated in room A1. Report was received from EMS. Second IV lock was initiated and labs were drawn as above. A septic protocol was performed. The patient was bolused with 500 cc of IV normal saline solution. Portable chest x-ray was performed. A bio fire swab was obtained. Blood cultures were obtained. Patient was given a dose of IV Solu-Medrol and IV cefepime. An ABG was obtained. Patient's O2 saturations began to come up and stabilized in the mid 90s. The patient was switched from nonrebreather mask to an oxime mask. I kept the patient's abreast of the situation. I discussed the case with the [facility] Hospitalist and they will evaluate for further inpatient care. I have personally spent greater than 85 minutes of critical care time in the direct management of this patient. This includes bedside care, interpretation of diagnostic studies, and testing, discussion with consultants, patient, and family members, and other required patient management activities. This 85 minutes is in excess of all separately billable procedures. Past Med/Surg History Medical History (Updated 05/09/23 @ 09:00 by Cathy Pal DO) Chronic pulmonary aspiration Right lower lobe pneumonia Neuropathy Rib fracture Chronic low back pain Degenerative joint disease (DJD) of lumbar spine Lumbar degenerative disc disease Tobacco abuse COPD (chronic obstructive pulmonary disease) Pneumothorax Surgical History S/P chest tube placement History of cataract surgery Family History Other Hypertension Social History (Updated 05/02/23 @ 14:26 by Sarah Morales RN) Smoking Status: Former smoker packs per day: 1; Second Hand Exposure: No; Do You Dip or Chew Tobacco: No; Hx Alcohol Use: No (quit in 2019 also ) Hx Substance Use: No Preferred Language: French Communication Ability: Effective Visual Impairment: No Limitations Hearing Ability: Normal C D Area Supervisor Required: No Beliefs That Will Affect Care: None marital status: Current Living Situation: Spouse current occupational status: retired How many Children do You have: 0 How many Children do You have Comment: Spouse able to assist with care. Feels Safe at Home: Yes Diet: regular during the past year weight has: remained stable Assistive Devices: Glasses and Wheelchair Allergies Allergies Allergy/AdvReac Type Severity Reaction Status Date / Time No Known Allergies Allergy Verified 05/02/23 14:09 Home Meds Home Medications Medication Instructions Recorded Confirmed gabapentin 300 mg capsule See Rx Instructions .Route .COMPLEX 07/28/19 05/08/23 (Neurontin) folic acid 1 mg tablet 1 mg PO DAILY 04/13/21 05/08/23 multivitamin (Multiple Vitamins 1 tab PO DAILY 02/07/22 03/03/24 tablet) thiamine HCl (vitamin B1) 100 mg 100 mg PO DAILY 04/13/21 05/08/23 tablet albuterol sulfate 2.5 mg/3 mL 2.5 mg inhalation DIRECTED PRN 10/11/21 05/08/23 (0.083 %) solution for nebulization Shortness Of Breath Or Wheezing mecobalamin-levomefolate 1 tab PO DAILY 10/11/21 05/08/23 calcium-pyridoxal phos 3 mg-35 mg-2 mg tablet oxycodone 5 mg tablet 5 mg PO Q6H PRN Pain 10/11/21 05/08/23 pantoprazole 40 mg granules 40 mg PO BID 05/02/23 05/08/23 delayed-release for susp in packet (Protonix) potassium chloride 10 mEq 10 meq PO DAILY 05/02/23 05/08/23 tablet,extended release prednisone 10 mg tablet 10 mg PO DAILY 05/02/23 05/08/23 Previous Rx's Medication Instructions Recorded docusate sodium 100 mg capsule 100 mg PO BID #60 caps 08/03/19 (Colace) amlodipine 10 mg tablet 10 mg PO DAILY #30 tabs 10/31/19 aspirin 81 mg tablet,delayed 81 mg PO DAILY #30 tabs 11/19/19 release (Ecotrin Low Strength) atorvastatin 20 mg tablet (Lipitor) 20 mg PO DAILY #30 tabs 11/19/19 pantoprazole 40 mg tablet,delayed 40 mg PO BID #60 tabs 11/19/19 release Results & Data (ED) Vital Signs Vital Signs - 24 hr 05/08/23 05:32 05/08/23 05:34 05/08/23 05:45 Temperature 37.8 C H Temperature Source Oral Pulse Rate 157 H 157 H Pulse Rate [Apical] 157 H Respiratory Rate 28 H 31 H Blood Pressure 117/90 Blood Pressure [Left Arm] 143/110 H Blood Pressure Mean 99 Blood Pressure Mean [Left Arm] 121 Pulse Oximetry 88 L 93 Oxygen Delivery Method Non-rebreather Non-rebreather Oxygen Flow Rate 15 15 Sepsis Recent Fever Within 48 Hours Yes Sepsis New/Unexplained Change in Mental Status No Sepsis Action Taken by Nursing Physician Notified 05/08/23 05:59 05/08/23 06:04 05/08/23 06:15 Temperature Temperature Source Pulse Rate 155 H Pulse Rate [Apical] 152 H 147 H Respiratory Rate 29 H 26 H 26 H Blood Pressure Blood Pressure [Left Arm] 163/124 H 125/78 Blood Pressure Mean Blood Pressure Mean [Left Arm] 137 93 Pulse Oximetry 94 93 96 Oxygen Delivery Method Non-rebreather Non-rebreather Room Air Oxygen Flow Rate 15 12 Sepsis Recent Fever Within 48 Hours Sepsis New/Unexplained Change in Mental Status Sepsis Action Taken by Nursing 05/08/23 06:30 05/08/23 06:45 05/08/23 07:19 Temperature Temperature Source Pulse Rate Pulse Rate [Apical] 142 H 142 H 131 H Respiratory Rate 26 H 26 H 18 Blood Pressure Blood Pressure [Left Arm] 104/75 105/68 132/81 Blood Pressure Mean Blood Pressure Mean [Left Arm] 84 80 98 Pulse Oximetry 95 98 95 Oxygen Delivery Method Non-rebreather Non-rebreather Non-rebreather Oxygen Flow Rate 12 12 10 Sepsis Recent Fever Within 48 Hours Sepsis New/Unexplained Change in Mental Status Sepsis Action Taken by Nursing Laboratory Data 05/09/23 05:25 05/09/23 05:25 Lab Results 05/08/23 05/08/23 05/08/23 Range/Units 05:50 05:53 06:28 WBC 31.37 H* (4.8-10.8) K/ul RBC 5.34 (4.70-6.10) M/uL Hgb 15.6 (14.0-18.0) g/dl Hct 48.6 (42.0-52.0) % MCV 91.0 (80.0-100.0) fL MCH 29.2 (25.0-34.0) pg MCHC 32.1 (32.0-36.0) g/dL RDW Std Deviation 49.2 H (36.4-46.3) fL RDW Coeff of [place] 15.2 H (11.5-14.5) % Plt Count 434 H (130-400) K/uL MPV 10.3 (9.4-12.4) fL Immature Gran % (Auto) 1.3 % Neut % (Auto) 83.6 % Lymph % (Auto) 7.7 % [place] % (Auto) 6.4 % Eos % (Auto) 0.2 % Baso % (Auto) 0.8 % Neut # (Auto) 26.21 H (1.40-6.50) K/uL Lymph # (Auto) 2.43 (1.20-3.40) K/uL [place] # (Auto) 2.00 H (0.11-0.59) K/uL Eos # (Auto) 0.07 (0.00-0.50) K/uL Baso # (Auto) 0.26 H (0.00-0.20) K/uL Immature Gran # (Auto) 0.40 H (0.01-0.20) K/uL PT 11.5 (9.0-12.0) Seconds INR 1.1 (0.9-1.1) APTT 26 (21-31) Seconds PTT Ratio 0.9 ABG pH Cancelled 7.37 ABG pCO2 Cancelled 30 L ABG pO2 Cancelled 71 L ABG HCO3 Cancelled 17 L ABG O2 Saturation Cancelled 95.1 H ABG Base Excess Cancelled -6.7 Ant Test Cancelled Pos Barometric Pressure Cancelled Oxygen Given Cancelled 15L Sodium 140 (136-145) mmol/L Potassium 4.2 (3.5-5.1) mmol/L Chloride 107 (98-107) mmol/L Carbon Dioxide 25 (21-32) mmol/L Anion Gap 8 (3-11) BUN 24 H (6-23) mg/dl Creatinine 1.84 H (0.6-1.4) mg/dl Est Cr Clr Drug Dosing 31.5 ml/min Est GFR ( Amer) 42.7 ml/min Est GFR (Non-Af Amer) 36.8 ml/min BUN/Creatinine Ratio 13.0 (10-20) Glucose 101 H (70-99(Fasting)) mg/dl Lactate 3.8 H* (0.4-2.0) mmol/L Calcium 8.8 (8.6-10.3) mg/dl Magnesium 1.6 L (1.7-2.4) mg/dl Total Bilirubin 1.0 (0.2-1.0) mg/dl Direct Bilirubin 0.3 H (0-0.2) mg/dl AST 15 (13-39) U/L ALT 12 (7-52) U/L Alkaline Phosphatase 84 (34-104) U/L Troponin I High Sens 149.5 H* (0-20) pg/ml Total Protein 6.8 (6.0-8.3) gm/dl Albumin 3.7 (3.4-5.0) gm/dl Procalcitonin 4.67 H (0-0.5) ng/ml Adenovirus (PCR) Not Detected (NotDetected) B. pertussis DNA (PCR) Not Detected (NotDetected) B.parapertussis DNA PCR Not Detected (NotDetected) C. pneumoniae DNA (PCR) Not Detected (NotDetected) Coronavirus OC43 (PCR) Not Detected (NotDetected) Coronavirus HKU1 (PCR) Not Detected (NotDetected) Coronavirus 229E (PCR) Not Detected (NotDetected) SARS-CoV-2 (PCR) Not Detected (NotDetected) Coronavirus NL63 (PCR) Not Detected (NotDetected) Human Metapneumovir PCR Not Detected (NotDetected) Influenza Type A (PCR) Not Detected (NotDetected) Influenza Type B (PCR) Not Detected (NotDetected) M. pneumoniae (PCR) Not Detected (NotDetected) Parainfluenza 1 (PCR) Not Detected (NotDetected) Parainfluenza 2 (PCR) Not Detected (NotDetected) Parainfluenza 3 (PCR) Not Detected (NotDetected) Parainfluenza 4 (PCR) Not Detected (NotDetected) RSV (PCR) Not Detected (NotDetected) Entero/Rhino (PCR) Not Detected (NotDetected) Administered Medications Aspirin (Aspirin 81 Mg Ectab) 81 mg PO DAILY [facility] Stop: 06/07/23 08:59 Last Admin: 05/09/23 07:53 Dose: Not Given Documented By: Admin: 05/08/23 10:08 Dose: Not Given Documented By: MIKE Atorvastatin Calcium (Atorvastatin 20 Mg Tab) 20 mg PO DAILY [facility] Stop: 06/07/23 08:59 Last Admin: 05/09/23 07:53 Dose: Not Given Documented By: Admin: 05/08/23 10:08 Dose: Not Given Documented By: MIKE Budesonide (Budesonide 0.25 Mg/2 Ml Vial (Pulmicort)) 0.25 mg NEB BIDR [facility] Stop: 06/07/23 18:59 Last Admin: 05/09/23 07:22 Dose: 0.25 mg Documented By: Admin: 05/08/23 19:48 Dose: 0.25 mg Documented By: NOEMÍ Docusate Sodium (Docusate Sodium 100 Mg Cap) 100 mg PO BID [facility] Stop: 06/07/23 08:59 Last Admin: 05/09/23 07:53 Dose: Not Given Documented By: Admin: 05/08/23 20:04 Dose: Not Given Documented By: Admin: 05/08/23 10:09 Dose: Not Given Documented By: MIKE Folic Acid (Folic Acid 1 Mg Tab) 1 mg PO DAILY [facility] Stop: 06/07/23 08:59 Last Admin: 05/09/23 07:53 Dose: Not Given Documented By: Admin: 05/08/23 10:09 Dose: Not Given Documented By: MIKE Formoterol Fumarate (Formoterol 20 Mcg/2 Ml Vial) 20 mcg NEB BIDR [facility] Stop: 06/07/23 11:29 Last Admin: 05/09/23 07:22 Dose: 20 mcg Documented By: Admin: 05/08/23 19:48 Dose: 20 mcg Documented By: Admin: 05/08/23 12:09 Dose: 20 mcg Documented By: SARAH Gabapentin (Gabapentin 300 Mg Cap) 300 mg PO 0900,1400 [facility] Stop: 06/07/23 08:59 Last Admin: 05/09/23 07:53 Dose: Not Given Documented By: Admin: 05/08/23 14:04 Dose: Not Given Documented By: Admin: 05/08/23 10:09 Dose: Not Given Documented By: MIKE Gabapentin (Gabapentin 600 Mg Tab) 600 mg PO HS [facility] Stop: 06/07/23 20:59 Last Admin: 05/08/23 20:04 Dose: Not Given Documented By: JUNI Heparin Sodium (Porcine) (Heparin Sod 5,000 Unit/0.5 Ml Vial) 5,000 units SQ Q8 [facility] Stop: 06/07/23 13:59 Last Admin: 05/09/23 05:36 Dose: 5,000 units Documented By: Admin: 05/08/23 21:01 Dose: 5,000 units Documented By: Admin: 05/08/23 14:04 Dose: 5,000 units Documented By: MIKE Hydromorphone HCl (Hydromorphone Inj 0.5 Mg/0.5 Ml Syr) 0.25 mg IV Q6H PRN PRN Reason: Mod-Sev Pain (Scale 4-10) Stop: 05/23/23 03:55 Last Admin: 05/09/23 05:39 Dose: 0.25 mg Documented By: JUNI Piperacillin Sod/Tazobactam (Sod 4.5 gm/ Dextrose) 100 mls @ 25 mls/hr IV Q8H [facility]; Protocol Stop: 05/15/23 13:29 Last Admin: 05/09/23 04:36 Dose: 25 mls/hr Documented By: Infusion: 05/09/23 00:59 Dose: Infused Documented By: Admin: 05/08/23 20:59 Dose: 25 mls/hr Documented By: Infusion: 05/08/23 18:04 Dose: Infused Documented By: Admin: 05/08/23 14:04 Dose: 25 mls/hr Documented By: MIKE Vancomycin HCl 750 mg/ Sodium (Chloride) 265 mls @ 200 mls/hr IV Q24H [facility] Stop: 05/15/23 15:59 Last Infusion: 05/08/23 18:04 Dose: Infused Documented By: Admin: 05/08/23 16:01 Dose: 200 mls/hr Documented By: CARLIE Doxycycline Hyclate 100 mg/ (Dextrose) 100 mls @ 50 mls/hr IV Q12H [facility] Stop: 05/15/23 19:59 Last Admin: 05/09/23 07:52 Dose: 50 mls/hr Documented By: Infusion: 05/08/23 22:26 Dose: Infused Documented By: Admin: 05/08/23 20:26 Dose: 50 mls/hr Documented By: JUNI Ipratropium [place] (Ipratropium [place] Neb Soln 0.02% 0.5mg/2.5ml Vial) 0.5 mg INH QIDR [facility] Stop: 06/07/23 10:59 Last Admin: 05/09/23 07:22 Dose: Not Given Documented By: Admin: 05/08/23 20:46 Dose: Not Given Documented By: Admin: 05/08/23 15:48 Dose: 0.5 mg Documented By: Admin: 05/08/23 12:09 Dose: Not Given Documented By: SARAH Levalbuterol HCl (Levalbuterol 1.25 Mg/3 Ml Neb) 1.25 mg NEB QIDR [facility] Stop: 06/07/23 10:59 Last Admin: 05/09/23 07:22 Dose: Not Given Documented By: Admin: 05/08/23 20:46 Dose: Not Given Documented By: Admin: 05/08/23 15:47 Dose: 1.25 mg Documented By: Admin: 05/08/23 12:10 Dose: Not Given Documented By: SARAH Multivitamins (Multivitamin Tab) 1 tab PO DAILY [facility] Stop: 06/07/23 08:59 Last Admin: 05/09/23 07:53 Dose: Not Given Documented By: Admin: 05/08/23 10:09 Dose: Not Given Documented By: MIKE Pantoprazole Sodium (Pantoprazole 40 Mg Tab) 40 mg PO BID [facility] Stop: 06/07/23 08:59 Last Admin: 05/09/23 07:54 Dose: Not Given Documented By: Admin: 05/08/23 20:20 Dose: Not Given Documented By: Admin: 05/08/23 10:09 Dose: Not Given Documented By: MIKE Potassium Chloride (Potassium Chloride 10 Meq Tabcr) 10 meq PO DAILY [facility] Stop: 06/07/23 08:59 Last Admin: 05/09/23 07:54 Dose: Not Given Documented By: Admin: 05/08/23 10:09 Dose: Not Given Documented By: MIKE Thiamine HCl (Thiamine Hcl 100 Mg Tab) 100 mg PO DAILY [facility] Stop: 06/07/23 08:59 Last Admin: 05/09/23 07:54 Dose: Not Given Documented By: Admin: 05/08/23 10:09 Dose: Not Given Documented By: MIKE Vitamin B Complex/Folic Acid (Nephrocaps) 1 cap PO DAILY [facility] Stop: 06/07/23 08:59 Last Admin: 05/09/23 07:54 Dose: Not Given Documented By: Admin: 05/08/23 10:09 Dose: Not Given Documented By: MIKE Discontinued Medications Doxycycline Hyclate (Doxycycline Hyclate 100 Mg Cap) 100 mg PO BID [facility] Stop: 05/15/23 08:59 Last Admin: 05/08/23 10:09 Dose: Not Given Documented By: MIKE Sodium Chloride (Nss) 1,000 mls @ 999 mls/hr IV .Q1H1M [facility] Stop: 05/08/23 07:45 Last Infusion: 05/08/23 07:27 Dose: Infused Documented By: Admin: 05/08/23 05:55 Dose: 999 mls/hr Documented By: Infusion: 05/08/23 05:55 Dose: Infused Documented By: Admin: 05/08/23 05:54 Dose: 999 mls/hr Documented By: ANU Cefepime HCl (Maxipime) 2,000 mg in 20 mls @ 5 mls/min IV NOW STA; Protocol Stop: 05/08/23 05:39 Last Admin: 05/08/23 05:54 Dose: 5 mls/min Documented By: ANU Vancomycin HCl 1,250 mg/ (Sodium Chloride) 275 mls @ 200 mls/hr IV NOW STA Stop: 05/08/23 07:50 Last Infusion: 05/08/23 08:07 Dose: Infused Documented By: Admin: 05/08/23 06:35 Dose: 200 mls/hr Documented By: ANU Magnesium Sulfate/Dextrose (Magnesium Sulfate / D5w) 1 gm in 100 mls @ 50 mls/hr IV Q2H [facility] Stop: 05/08/23 11:14 Last Infusion: 05/08/23 11:48 Dose: Infused Documented By: Admin: 05/08/23 09:37 Dose: 50 mls/hr Documented By: Infusion: 05/08/23 09:27 Dose: Infused Documented By: Admin: 05/08/23 07:27 Dose: 50 mls/hr Documented By: MARGOTH Sodium Chloride (Nss) 1,000 mls @ 125 mls/hr IV .Q8H [facility] Stop: 06/07/23 07:14 Last Infusion: 05/08/23 11:48 Dose: Infused Documented By: Admin: 05/08/23 07:27 Dose: 125 mls/hr Documented By: MARGOTH Sodium Chloride (Nss) 500 mls @ 500 mls/hr IV .Q1H [facility] Stop: 05/08/23 08:14 Last Infusion: 05/08/23 08:31 Dose: Infused Documented By: Admin: 05/08/23 07:27 Dose: 500 mls/hr Documented By: MARGOTH Piperacillin Sod/Tazobactam Sod (Zosyn) 4.5 gm in 100 mls @ 200 mls/hr IV ONE STA Stop: 05/08/23 09:14 Last Infusion: 05/08/23 10:11 Dose: Infused Documented By: Admin: 05/08/23 09:39 Dose: 200 mls/hr Documented By: MIKE Methylprednisolone 40 mg/ (Syringe) 0.64 mls @ 1.5 mls/min IV TID [facility] Stop: 06/07/23 08:59 Last Admin: 05/08/23 09:39 Dose: 1.5 mls/min Documented By: MIKE Acetaminophen (Ofirmev) 1,000 mg in 100 mls @ 400 mls/hr IV NOW STA Stop: 05/08/23 15:23 Last Infusion: 05/08/23 16:01 Dose: Infused Documented By: Admin: 05/08/23 15:31 Dose: 400 mls/hr Documented By: CARLIE Ioversol (Optiray 320 125ml) 117 ml IV ONCE ONE Stop: 05/08/23 11:26 Last Admin: 05/08/23 11:25 Dose: 117 ml Documented By: ANITHA Methylprednisolone (Methylprednisolone 125 Mg/2 Ml Vial) 125 mg IV NOW STA Stop: 05/08/23 06:41 Last Admin: 05/08/23 06:51 Dose: 125 mg Documented By: ANU Miscellaneous (Rapid Sequence Induction Bag) Confirm Administered Dose 1 each N/A .STK-MED ONE Stop: 05/08/23 05:26 Last Admin: 05/08/23 06:14 Dose: Not Given Documented By: ANU Imaging Data Radiologist's Impression: Chest X-Ray 05/08/23 05:32 XR chest 1V portable HISTORY: 67 years-old Male Sepsis acute sepsis COMPARISON: 10/11/2021 TECHNIQUE: AP view of the chest FINDINGS: Cardiomediastinal and hilar silhouettes are within normal limits. No pneumothorax, pleural effusion or overt pulmonary edema. There are new patchy right lung base airspace opacities. Bones appear grossly intact. IMPRESSION: Right basilar pneumonia. ACT 112: Negative or not required by law. The above report was generated using voice recognition software. It may contain grammatical, syntax or spelling errors. Electronically signed by: Rigo Baptiste M.D. 05/08/2023 7:24 AM Discharge Plan Visit Data Chief Complaint: Infection Stated Complaint: SEPSIS ALERT ED Provider: Cathy Pal Discharge Problem: Hypoxia, Pneumonia, Respiratory failure, Elevated troponin, Severe sepsis Patient Disposition: Admitted As Inpatient Discharge Instructions Interventions: ED Discharge Assessment Last Done: 05/08/23 08:12
--- NOTE | 2023-05-08 08:21 | History & Physical Report ---
Date of Service May 08, 2023 Assessment & Plan (1) Severe sepsis: Plan: 67-year-old male with past medical history significant for hyperlipidemia, COPD, hypertension, peripheral vascular disease, dural regular venous fistula, CAD per epic but no cardiac disease as per and also per previous cardio notes, constipation, protein calorie monitoring, history of narcotic bowel syndrome, osteoarthritis, lumbar degenerative disc disease, cervical myelopathy, left cervical adenopathy, history of tobacco abuse comes because of not feeling well and hypoxia and found to be in severe sepsis mostly from pneumonia and also have ongoing right hip pressure ulcer. As per yesterday evening patient told her that he was not feeling well and felt like flu coming on. Around 3 AM he woke up and he was was short of breath and was rattling in the chest and diapho retic and seemed confused and was brought to the hospital. His oxygen saturation were only in 70%. He was placed on nonrebreather in the ER. Had temp spike in the ER.Tachycardic with heart rates in the 140s. Blood pressure holding. Currently patient is alert and oriented. Denies any headache. Denies any chest pain. Has some dry cough. No runny nose. No sore throat. No nausea. No abdominal pain. Somewhat constipated, normal micturition. He has chronic back issues. states he is mostly in the bed not moving much. PT comes home. But does not ambulate much. He is mostly wheelchair-bound. He can transfer from the bed to the wheelchair. Because of his laying in the bed all the time he has pressure ulcers. His pressure ulcers in the sacral region healed up. But still has a ongoing pressure ulcer in the right hip.Patient is following with the wound care. As per no trouble swallowing. Severe sepsis Mostly from right lower lobe pneumonia Also has ongoing right hip pressure ulcer Lactic acid 3.8, WBC 31 temperature 37.8. Heart heart rates in 140s. Procalcitonin 4.6 Received aggressive fluids Received IV cefepime in the ER Will continue with IV Vanco and Zosyn and p.o. Doxy Will continue IV normal saline 125 mill per hour Will follow repeat lactic acid Currently tachycardia improving and blood pressure is stable Will closely monitor the hemodynamics Follow cultures Respiratory bio fire negative UA is pending Telemetry for now Respiratory distress COPD exacerbation Pneumonia Requiring high oxygen supplementation ABGs are okay Antibiotics as above Nebs [id number] and as needed IV Solu-Medrol 40 mg 3 times daily Pulmonary consult Close monitor Right hip pressure ulcer stage III Follow the cultures Follow the x-ray Wound care. Elevated troponin Mostly demand ischemia We will follow serial enzymes CKD stage III Presented with creatinine of 1.8 which seems to be around baseline as per epic Will follow the labs Hypomagnesia Will replace Follow labs Hypertension Will hold amlodipine for severe sepsis Restart when able Ambulate dysfunction Chronic back pain On pain meds Wheelchair-bound Can do transfers PT OT when stable Peripheral vascular disease On aspirin and statin GERD Protonix DVT prophylaxis Heparin subcu Disposition Telemetry Full code per discussion with the Admission and Anticipated Discharge Date Admission Date: May 08, 2023 History of Present Illness Chief Complaint: Severe sepsis Primary Care Provider: Nora Espinosa MD 67-year-old male with past medical history significant for hypertension, COPD, peripheral vascular disease, hypertension, dural regular venous fistula, CAD per epic but no cardiac disease as per and also per previous cardio notes, constipation, protein calorie monitoring, history of narcotic bowel syndrome, osteoarthritis, lumbar degenerative disc disease, cervical myelopathy, left cervical adenopathy, history of tobacco abuse comes because of not feeling well and hypoxia and found to be in severe sepsis mostly from pneumonia and also have ongoing right hip pressure ulcer. As per yesterday evening patient told her that he was not feeling well and felt like flu coming on. Around 3 AM he woke up and he was was short of breath and was rattling in the chest and diaphoretic and seemed confused and was brought to the hospital. His oxygen saturation were only 70%. He was placed on nonrebreather in the ER. Had temp spike in the ER.Tachycardic heart rate in the 140s. Blood pressure holding. Currently patient is alert and oriented. Denies any headache. Denies any chest pain. Has some dry cough. No runny nose. No sore throat. No nausea. No abdominal pain. Somewhat constipated, normal micturition. He has chronic back issues. states he is mostly in the bed not moving much. PT comes home. But does not ambulate much. He is mostly wheelchair-bound. He can transfer from the bed to the wheelchair. Because of his laying in the bed all the time he has pressure ulcers. His pressure ulcers in the sacral region healed up. But still has a ongoing pressure ulcer in the right hip.Patient is following wi th the wound care. As per no trouble swallowing. Past medical history. As mentioned above Past surgical history. Bilateral cataract replacement, chest tube insertion, colonoscopy, EGD, bilateral cataracts, cervical spine laminectomy, vertebral artery catheter placement. Family history. Mother had heart disease. Stroke. Father had lung cancer. Sister has heart disease. Brother has heart disease. Brother had throat cancer Allergies Allergy/AdvReac Type Severity Reaction Status Date / Time No Known Allergies Allergy Verified 05/02/23 14:09 Home Medications Medication Instructions Recorded Confirmed Type gabapentin 300 mg capsule See Rx Instructions .Route .COMPLEX 07/28/19 05/08/23 History (Neurontin) docusate sodium 100 mg capsule 100 mg PO BID #60 caps 08/03/19 05/08/23 Rx (Colace) amlodipine 10 mg tablet 10 mg PO DAILY #30 tabs 10/31/19 05/08/23 Rx aspirin 81 mg tablet,delayed 81 mg PO DAILY #30 tabs 11/19/19 05/08/23 Rx release (Ecotrin Low Strength) atorvastatin 20 mg tablet (Lipitor) 20 mg PO DAILY #30 tabs 11/19/19 05/08/23 Rx pantoprazole 40 mg tablet,delayed 40 mg PO BID #60 tabs 11/19/19 05/08/23 Rx release folic acid 1 mg tablet 1 mg PO DAILY 04/13/21 05/08/23 History multivitamin (Multiple Vitamins 1 tab PO DAILY 04/13/21 05/08/23 History tablet) thiamine HCl (vitamin B1) 100 mg 100 mg PO DAILY 04/13/21 05/08/23 History tablet albuterol sulfate 2.5 mg/3 mL 2.5 mg inhalation DIRECTED PRN 10/11/21 05/08/23 History (0.083 %) solution for nebulization Shortness Of Breath Or Wheezing mecobalamin-levomefolate 1 tab PO DAILY 10/11/21 05/08/23 History calcium-pyridoxal phos 3 mg-35 mg-2 mg tablet oxycodone 5 mg tablet 5 mg PO Q6H PRN Pain 10/11/21 05/08/23 History pantoprazole 40 mg granules 40 mg PO BID 05/02/23 05/08/23 History delayed-release for susp in packet (Protonix) potassium chloride 10 mEq 10 meq PO DAILY 05/02/23 05/08/23 History tablet,extended release prednisone 10 mg tablet 10 mg PO DAILY 05/02/23 05/08/23 History Past Med/Surg History Medical History (Updated 05/08/23 @ 08:53 by Mahesh Campbell MD) Neuropathy Rib fracture Chronic low back pain Degenerative joint disease (DJD) of lumbar spine Lumbar degenerative disc disease Tobacco abuse COPD (chronic obstructive pulmonary disease) Pneumothorax Surgical History S/P chest tube placement History of cataract surgery Family History Other Hypertension Social History (Updated 05/02/23 @ 14:26 by Sarah Morales RN) Smoking Status: Former smoker packs per day: 1; Second Hand Exposure: No; Do You Dip or Chew Tobacco: No; Hx Alcohol Use: No (quit in 2019 also ) Hx Substance Use: No Preferred Language: Thai Communication Ability: Effective Visual Impairment: No Limitations Hearing Ability: Normal Foot Roentgenologist Required: No Beliefs That Will Affect Care: None marital status: Current Living Situation: Spouse current occupational status: retired How many Children do You have: 0 How many Children do You have Comment: Spouse able to assist with care. Feels Safe at Home: Yes Diet: regular during the past year weight has: remained stable Assistive Devices: Glasses Review of Systems Review of Systems: All systems reviewed & are unremarkable except as noted in HPI & below Physical Exam Physical Exam: General- Not in distress Head- atraumatic Eyes- PERRL. ENT- oropharynx clear Neck- supple, no JVD. Lungs- clear to auscultation mild b/l rhonchi and mild expiratory wheezing Heart- regular rhythm;Tachycardia, no murmur, no gallop. Abdomen- normal bowel sounds, soft, nontender, no distension. Extremities- no pretibial edema, no erythema seen Neuro- alert, oriented x 3; PERRL,; no facial palsy; no dysarthria; b/l lower extremity weakness Skin- pressure ulcer on right hip 1.5cm x 1.5cm stage 3 Results & Data Results & Data Vital Signs (Past 12 Hours) Vital Signs Temp Pulse Pulse Resp BP BP Pulse Ox 05/08/23 07:58 127 H 16 133/79 95 05/08/23 07:19 131 H 18 132/81 95 05/08/23 06:45 142 H 26 H 105/68 98 05/08/23 06:30 142 H 26 H 104/75 95 05/08/23 06:15 147 H 26 H 125/78 96 05/08/23 06:04 152 H 26 H 163/124 H 93 05/08/23 05:59 155 H 29 H 94 05/08/23 05:45 157 H 31 H 143/110 H 93 05/08/23 05:34 37.8 C H 157 H 28 H 117/90 88 L 05/08/23 05:32 157 H O2 Del Method O2 Flow Rate 05/08/23 07:58 Oxymask 10 05/08/23 07:19 Non-rebreather 10 05/08/23 06:45 Non-rebreather 12 05/08/23 06:30 Non-rebreather 12 05/08/23 06:15 Room Air 05/08/23 06:04 Non-rebreather 12 05/08/23 05:59 Non-rebreather 15 05/08/23 05:45 Non-rebreather 15 05/08/23 05:34 Non-rebreather 15 05/08/23 05:32 Diagnostic Findings Laboratory Results WBC 31.37 K/ul (4.8-10.8) H* 05/08/23 05:50 RBC 5.34 M/uL (4.70-6.10) 05/08/23 05:50 Hgb 15.6 g/dl (14.0-18.0) 05/08/23 05:50 Hct 48.6 % (42.0-52.0) 05/08/23 05:50 MCV 91.0 fL (80.0-100.0) 05/08/23 05:50 MCH 29.2 pg (25.0-34.0) 05/08/23 05:50 MCHC 32.1 g/dL (32.0-36.0) 05/08/23 05:50 RDW Std Deviation 49.2 fL (36.4-46.3) H 05/08/23 05:50 RDW Coeff of [place] 15.2 % (11.5-14.5) H 05/08/23 05:50 Plt Count 434 K/uL (130-400) H 05/08/23 05:50 MPV 10.3 fL (9.4-12.4) 05/08/23 05:50 Immature Gran % (Auto) 1.3 % 05/08/23 05:50 Neut % (Auto) 83.6 % 05/08/23 05:50 Lymph % (Auto) 7.7 % 05/08/23 05:50 [place] % (Auto) 6.4 % 05/08/23 05:50 Eos % (Auto) 0.2 % 05/08/23 05:50 Baso % (Auto) 0.8 % 05/08/23 05:50 Neut # (Auto) 26.21 K/uL (1.40-6.50) H 05/08/23 05:50 Lymph # (Auto) 2.43 K/uL (1.20-3.40) 05/08/23 05:50 [place] # (Auto) 2.00 K/uL (0.11-0.59) H 05/08/23 05:50 Eos # (Auto) 0.07 K/uL (0.00-0.50) 05/08/23 05:50 Baso # (Auto) 0.26 K/uL (0.00-0.20) H 05/08/23 05:50 Immature Gran # (Auto) 0.40 K/uL (0.01-0.20) H 05/08/23 05:50 PT 11.5 Seconds (9.0-12.0) 05/08/23 05:50 INR 1.1 (0.9-1.1) 05/08/23 05:50 APTT 26 Seconds (21-31) 05/08/23 05:50 PTT Ratio 0.9 05/08/23 05:50 ABG pH 7.37 (7.35-7.45) 05/08/23 06:28 ABG pCO2 30 mmHg (35-46) L 05/08/23 06:28 ABG pO2 71 mmHg (80-95) L 05/08/23 06:28 ABG HCO3 17 mmol/L (19-24) L 05/08/23 06:28 ABG O2 Saturation 95.1 % (90-95) H 05/08/23 06:28 ABG Base Excess -6.7 mEq/L (-9-1.8) 05/08/23 06:28 Ant Test Pos (Pos) 05/08/23 06:28 Barometric Pressure Cancelled 05/08/23 05:53 Oxygen Given 15L 05/08/23 06:28 Sodium 140 mmol/L (136-145) 05/08/23 05:50 Potassium 4.2 mmol/L (3.5-5.1) 05/08/23 05:50 Chloride 107 mmol/L (98-107) 05/08/23 05:50 Carbon Dioxide 25 mmol/L (21-32) 05/08/23 05:50 Anion Gap 8 (3-11) 05/08/23 05:50 BUN 24 mg/dl (6-23) H 05/08/23 05:50 Creatinine 1.84 mg/dl (0.6-1.4) H 05/08/23 05:50 Est Cr Clr Drug Dosing 31.5 ml/min 05/08/23 05:50 Est GFR ( Amer) 42.7 ml/min 05/08/23 05:50 Est GFR (Non-Af Amer) 36.8 ml/min 05/08/23 05:50 BUN/Creatinine Ratio 13.0 (10-20) 05/08/23 05:50 Glucose 101 mg/dl (70-99(Fasting)) H 05/08/23 05:50 Lactate 3.8 mmol/L (0.4-2.0) H* 05/08/23 05:50 Calcium 8.8 mg/dl (8.6-10.3) 05/08/23 05:50 Magnesium 1.6 mg/dl (1.7-2.4) L 05/08/23 05:50 Total Bilirubin 1.0 mg/dl (0.2-1.0) 05/08/23 05:50 Direct Bilirubin 0.3 mg/dl (0-0.2) H 05/08/23 05:50 AST 15 U/L (13-39) 05/08/23 05:50 ALT 12 U/L (7-52) 05/08/23 05:50 Alkaline Phosphatase 84 U/L (34-104) 05/08/23 05:50 Troponin I High Sens 149.5 pg/ml (0-20) H* 05/08/23 05:50 Total Protein 6.8 gm/dl (6.0-8.3) 05/08/23 05:50 Albumin 3.7 gm/dl (3.4-5.0) 05/08/23 05:50 Procalcitonin 4.67 ng/ml (0-0.5) H 05/08/23 05:50 Adenovirus (PCR) Not Detected (NotDetected) 05/08/23 05:50 B. pertussis DNA (PCR) Not Detected (NotDetected) 05/08/23 05:50 B.parapertussis DNA PCR Not Detected (NotDetected) 05/08/23 05:50 C. pneumoniae DNA (PCR) Not Detected (NotDetected) 05/08/23 05:50 Coronavirus OC43 (PCR) Not Detected (NotDetected) 05/08/23 05:50 Coronavirus HKU1 (PCR) Not Detected (NotDetected) 05/08/23 05:50 Coronavirus 229E (PCR) Not Detected (NotDetected) 05/08/23 05:50 SARS-CoV-2 (PCR) Not Detected (NotDetected) 05/08/23 05:50 Coronavirus NL63 (PCR) Not Detected (NotDetected) 05/08/23 05:50 Human Metapneumovir PCR Not Detected (NotDetected) 05/08/23 05:50 Influenza Type A (PCR) Not Detected (NotDetected) 05/08/23 05:50 Influenza Type B (PCR) Not Detected (NotDetected) 05/08/23 05:50 M. pneumoniae (PCR) Not Detected (NotDetected) 05/08/23 05:50 Parainfluenza 1 (PCR) Not Detected (NotDetected) 05/08/23 05:50 Parainfluenza 2 (PCR) Not Detected (NotDetected) 05/08/23 05:50 Parainfluenza 3 (PCR) Not Detected (NotDetected) 05/08/23 05:50 Parainfluenza 4 (PCR) Not Detected (NotDetected) 05/08/23 05:50 RSV (PCR) Not Detected (NotDetected) 05/08/23 05:50 Entero/Rhino (PCR) Not Detected (NotDetected) 05/08/23 05:50 Impressions Chest X-Ray 05/08/23 05:32 XR chest 1V portable HISTORY: 67 years-old Male Sepsis acute sepsis COMPARISON: 10/11/2021 TECHNIQUE: AP view of the chest FINDINGS: Cardiomediastinal and hilar silhouettes are within normal limits. No pneumothorax, pleural effusion or overt pulmonary edema. There are new patchy ri ght lung base airspace opacities. Bones appear grossly intact. IMPRESSION: Right basilar pneumonia. ACT 112: Negative or not required by law. The above report was generated using voice recognition software. It may contain grammatical, syntax or spelling errors. Electronically signed by: Rigo Baptiste M.D. 05/08/2023 7:24 AM ECG Additional Comments: ECG. Sinus tachycardia rate of 156. Rightward axis. Nonspecific ST and T wave abnormalities. Pulmonary disease pattern. Code Status & VTE Plan VTE Prophylaxis Plan VTE Prophylaxis will be ordered: Yes
[2023-05-08] MEDS ORDERED: NITROGLYCERIN SL 0.4 MG/TAB TAB SL PRN (08:36)
[2023-05-08] MEDS ORDERED: XOPENEX/ATROVENT 1.25mg/0.5MG NEB COMBO NEB SCH (09:00)
--- NOTE | 2023-05-08 09:00 | Electrocardiogram Report ---
Test Reason : Blood Pressure : / mmHG Vent. Rate : 156 BPM Atrial Rate : 156 BPM P-R Int : 126 ms QRS Dur : 072 ms QT Int : 246 ms P-R-T Axes : 075 102 070 degrees QTc Int : 396 ms Sinus tachycardia Rightward axis Pulmonary disease pattern Abnormal ECG When compared with ECG of 11-OCT-2021 19:22, Vent. rate has increased BY 78 BPM Confirmed by Brandon Toscano ([id number]) on 05/08/2023 9:00:22 AM Referred By: Confirmed By:Brandon Toscano
[2023-05-08 09:35] LABS: Appearance Urine Cloudy (Clear); Bacteria Urine Automated 2+ (Negative); Bilirubin Urine Negative (Negative); Blood Urine 2+ (Negative); Color Urine Yellow; Epithelial Cell Urine Auto >30 /lpf (0-5); Glucose Urine UA Negative (Negative); Ketones Urine Negative (Negative); Leukocyte Esterase Urine 1+ (Negative); Nitrite Urine Positive (Negative); Specific Gravity Urine 1.011 (1.000-1.030); Urobilinogen Urine Negative (Negative); WBC Urine Automated >30 /hpf (0-5); pH Urine 7.5 (4.5-7.5)
--- NOTE | 2023-05-08 09:37 | XRay Report ---
XR hip RT 2V w pelvis HISTORY: 67 years-old Male right hip wound. osteomyelitis? Chronic bilateral hip pain COMPARISON: CT 10/25/2019 TECHNIQUE: AP view of the pelvis with 2 views of the right hip FINDINGS: Rxtw-fg-oobcixct osteoarthritis of the hips. No acute fracture, dislocation, gross acute osseous eros ion. Moderate fecal retention. Degenerative changes of the imaged lumbar spine. IMPRESSION: No acute osseous abnormality. ACT 112: Negative or not required by law. The above report was generated using voice recognition software. It may contain grammatical, syntax o r spelling errors. Electronically signed by: Rigo Baptiste M.D. 05/08/2023 9:35 AM
[2023-05-08] MEDS: PIPERACILLIN/TAZOBACTAM 4.5 GM/100 ML BAG IV STA (09:39)
[2023-05-08] MEDS: methylPREDNISolone 40 MG in SYRINGE 0 ML IV SCH (09:39)
[2023-05-08 09:43] LABS: Protein Urine 3+ (Negative)
[2023-05-08] MEDS: ASPIRIN 81 MG ECTAB PO SCH (10:08)
[2023-05-08] MEDS: ATORVASTATIN 20 MG TAB PO SCH (10:08)
[2023-05-08] MEDS: POTASSIUM CHLORIDE 10 MEQ TABCR PO SCH (10:09)
[2023-05-08] MEDS: FOLIC ACID 1 MG TAB PO SCH (10:09)
[2023-05-08] MEDS: NEPHROCAPS PO SCH (10:09)
[2023-05-08] MEDS: THIAMINE HCL 100 MG TAB PO SCH (10:09)
[2023-05-08] MEDS: PANTOprazole 40 MG TAB PO SCH (10:09)
[2023-05-08] MEDS: MULTIVITAMIN TAB PO SCH (10:09)
[2023-05-08] MEDS: GABAPENTIN 300 MG CAP PO SCH (10:09)
[2023-05-08] MEDS: DOXYCYCLINE HYCLATE 100 MG CAP PO SCH (10:09)
[2023-05-08] MEDS: DOCUSATE SODIUM 100 MG CAP PO SCH (10:09)
[2023-05-08 10:25] LABS: Allen Test Pos (Pos); Base Excess ABG -5.3 mEq/L (-9-1.8); HCO3 ABG 19 mmol/L (19-24); Oxygen Saturation ABG 96.7 % (90-95); PCO2 ABG 33 mmHg (35-46); PO2 ABG 83 mmHg (80-95); pH ABG 7.37 (7.35-7.45)
[2023-05-08] MEDS: OPTIRAY 320 125ml IV ONE (11:25)
--- NOTE | 2023-05-08 11:27 | Pulmonary Consultation ---
Date of Consultation May 08, 2023 Assessment & Plan (1) Right lower lobe pneumonia: (2) Chronic pulmonary aspiration: (3) Severe sepsis: (4) Malnutrition: Plan 67-year-old male with a past medical history of tobacco abuse, cervical myelopathy, COPD and severe malnutrition presenting to the hospital due to increasing shortness of breath and cough. Chest x-ray with evidence of worsening right lower lobe infiltrate consistent with aspiration pneumonia. Continue doxycycline, Zosyn. Obtain MRSA screen. Discontinue Solu-Medrol as no signs of bronchospasm at this time. Continue nebulizer treatments as needed. Will start formoterol and budesonide twice daily. Discontinue IV fluids as the patient is prone to volume overload given his low oncotic pressure and probable cor pulmonale. Recommend obtaining echocardiogram and BNP. Thank you for the consult. Pulm will continue to follow. History of Present Illness Reason for Consultation: Aspiration pneumonia Attending Physician: Ishaan Raymond MD History of Present Illness 59-year-old male with a history of severe scoliosis, hyperlipidemia, COPD, hypertension and peripheral vascular disease who presented to the hospital due to shortness of breath he began experiencing last night. His oxygen saturations were in the 70s upon arrival to the ER. He is now saturating in the 90s on 2 L OxyMask. He was started on broad-spectrum antibiotics and nebulizer treatments. His cough is improved. He does note yellow sputum production. Denies any hemoptysis. His weight has been declining and his appetite has been very poor. His mobility is quite limited due to severe cervical myelopathy. He is essentially bedbound or bound to a wheelchair with assistance. His is present at bedside and able to give some collateral history. She notes that the patient has trouble with swallowing at times. He has been febrile this admission and tachycardic. Allergies Allergy/AdvReac Type Severity Reaction Status Date / Time No Known Allergies Allergy Verified 05/02/23 14:09 Home Medications Medication Instructions Recorded Confirmed Type gabapentin 300 mg capsule See Rx Instructions .Route .COMPLEX 07/28/19 05/08/23 History (Neurontin) docusate sodium 100 mg capsule 100 mg PO BID #60 caps 08/03/19 05/08/23 Rx (Colace) amlodipine 10 mg tablet 10 mg PO DAILY #30 tabs 10/31/19 05/08/23 Rx aspirin 81 mg tablet,delayed 81 mg PO DAILY #30 tabs 11/19/19 05/08/23 Rx release (Ecotrin Low Strength) atorvastatin 20 mg tablet (Lipitor) 20 mg PO DAILY #30 tabs 11/19/19 05/08/23 Rx pantoprazole 40 mg tablet,delayed 40 mg PO BID #60 tabs 11/19/19 05/08/23 Rx release folic acid 1 mg tablet 1 mg PO DAILY 04/13/21 05/08/23 History multivitamin (Multiple Vitamins 1 tab PO DAILY 04/13/21 05/08/23 History tablet) thiamine HCl (vitamin B1) 100 mg 100 mg PO DAILY 04/13/21 05/08/23 History tablet albuterol sulfate 2.5 mg/3 mL 2.5 mg inhalation DIRECTED PRN 10/11/21 05/08/23 History (0.083 %) solution for nebulization Shortness Of Breath Or Wheezing mecobalamin-levomefolate 1 tab PO DAILY 10/11/21 05/08/23 History calcium-pyridoxal phos 3 mg-35 mg-2 mg tablet oxycodone 5 mg tablet 5 mg PO Q6H PRN Pain 10/11/21 05/08/23 History pantoprazole 40 mg granules 40 mg PO BID 05/02/23 05/08/23 History delayed-release for susp in packet (Protonix) potassium chloride 10 mEq 10 meq PO DAILY 05/02/23 05/08/23 History tablet,extended release prednisone 10 mg tablet 10 mg PO DAILY 05/02/23 05/08/23 History Patient History Medical History (Updated 05/08/23 @ 11:23 by Kaden Martinez MD) Chronic pulmonary aspiration Right lower lobe pneumonia Neuropathy Rib fracture Chronic low back pain Degenerative joint disease (DJD) of lumbar spine Lumbar degenerative disc disease Tobacco abuse COPD (chronic obstructive pulmonary disease) Pneumothorax Surgical History S/P chest tube placement History of cataract surgery Family History Other Hypertension Social History (Updated 05/02/23 @ 14:26 by Sarah Morales RN) Smoking Status: Former smoker packs per day: 1; Second Hand Exposure: No; Do You Dip or Chew Tobacco: No; Hx Alcohol Use: No (quit in 2019 also ) Hx Substance Use: No Preferred Language: Luxembourgish Communication Ability: Effective Visual Impairment: No Limitations Hearing Ability: Normal Senior Quality Analyst Required: No Beliefs That Will Affect Care: None marital status: Current Living Situation: Spouse current occupational status: retired How many Children do You have: 0 How many Children do You have Comment: Spouse able to assist with care. Other Information That Helps Us Care for You: No Feels Safe at Home: Yes Safety Concerns: Feels Safe At This Time Diet: regular during the past year weight has: remained stable Assistive Devices: Glasses and Wheelchair Review of Systems Review of Systems: All systems reviewed & are unremarkable except as noted in HPI & below Physical Exam Physical Exam: Constitutional: Patient appears to be of their stated age. Thin and frail appearing male in no apparent distress. Eyes: Pupils are equal round and reactive to light. Conjunctivae are normal. Anicteric sclera. Ears nose, mouth and throat: Mallampati class 2. Normal posterior oropharynx. Uvula is midline. Neck: Trachea is midline. Visual inspection is normal. Respiratory: Coarse rhonchi noted in the right lower lobes. Mildly tachypneic. Cardiovascular: Regular rate and rhythm. No murmurs. No edema. Gastrointestinal: Normal bowel sounds, soft, nontender and nondistended. No hepatosplenomegaly noted. Musculoskeletal: No cyanosis. Patient is able to move all extremities. Strength is 5 out of 5 in the upper and lower extremities. Skin: No rashes, warm dry and intact. Neurologic: No obvious focal neurological deficits seen. Psychiatric: Alert and oriented x3 with a euthymic affect. Results & Data Results & Data Vital Signs (Past 12 Hours) Vital Signs Temp Pulse Pulse Resp BP BP Pulse Ox 05/08/23 10:56 05/08/23 10:55 107 H 18 137/71 96 05/08/23 10:15 100 05/08/23 10:12 110 H 19 133/67 100 05/08/23 08:29 124 H 18 120/71 96 05/08/23 07:58 127 H 16 133/79 95 05/08/23 07:19 131 H 18 132/81 95 05/08/23 06:45 142 H 26 H 105/68 98 05/08/23 06:30 142 H 26 H 104/75 95 05/08/23 06:15 147 H 26 H 125/78 96 05/08/23 06:04 152 H 26 H 163/124 H 93 05/08/23 05:59 155 H 29 H 94 05/08/23 05:45 157 H 31 H 143/110 H 93 05/08/23 05:34 37.8 C H 157 H 28 H 117/90 88 L 05/08/23 05:32 157 H Pulse Ox O2 Del Method O2 Del Method O2 Flow Rate O2 Flow Rate 05/08/23 10:56 96 Oxymask 2 05/08/23 10:55 Oxymask 2 05/08/23 10:15 Oxymask 8 05/08/23 10:12 Oxymask 10 05/08/23 08:29 Oxymask 10 05/08/23 07:58 Oxymask 10 05/08/23 07:19 Non-rebreather 10 05/08/23 06:45 Non-rebreather 12 05/08/23 06:30 Non-rebreather 12 05/08/23 06:15 Room Air 05/08/23 06:04 Non-rebreather 12 05/08/23 05:59 Non-rebreather 15 05/08/23 05:45 Non-rebreather 15 05/08/23 05:34 Non-rebreather 15 05/08/23 05:32 PG Care Time/CCT Total # of Minutes Spent Total Time Spent with Patient: Total time spent is greater than 50% in coordination of care (as documented) at patient's floor/unit and/or counseling patient: Coding Level of Care Code 04149 INT INP/OBS CARE 75MIN Diagnoses Right lower lobe pneumonia J18.9 Chronic pulmonary aspiration T17.908A Severe sepsis A41.9; R65.20 Malnutrition E46
--- NOTE | 2023-05-08 11:57 | Pharmacy Report ---
Pharmacy PK ABX Note - Date of Service May 08, 2023 - Assessment and Plan Assessment 67 year old M receiving vancomycin/zosyn, po doxycycline for treatment of sepsis/pneumonia. MRSA nasal screen pending. Pertinent microbiologic data includes: right hip culture pending, urine culture pending, blood culture x 2. WBC 31, Procal 4.6. SCr 1.84, Plan Vancomycin * Loading dose: 1250 mg IV x 1 * Maintenance dose: 750 mg IV every 24 hours * Regimen is predicted to achieve target AUC/ANN of 400-600 mg/L.hr * Will order level if continued >48 hours Pharmacy will continue to follow and will adjust dose/frequency as necessary. Thank you. Pharmacy has transitioned to AUC monitoring for vancomycin. AUC/ANN is the preferred PK/PD target and is associated with decreased risk of nephrotoxicity compared to traditional trough targets.
[2023-05-08] MEDS ORDERED: VANCOMYCIN HCL 1,000 MG in SODIUM CHLORIDE 0.9% 250 ML IV SCH (12:00)
[2023-05-08] MEDS: IPRATROPIUM BROMIDE NEB SOLN 0.02% 0.5MG/2.5ML VIAL INH SCH (12:09)
[2023-05-08] MEDS: FORMOTEROL 20 MCG/2 ML VIAL NEB SCH (12:09)
[2023-05-08] MEDS: LEVALBUTEROL 1.25 MG/3 ML NEB NEB SCH (12:10)
--- NOTE | 2023-05-08 12:42 | CT Scan Report ---
CT angio chest PE protocol CT DOSE: 630.37 mGy.cm HISTORY: 67 years-old Male with PE. Acute shortness of breath. TECHNIQUE: Multiple CTA images of the chest were obtained after the intravenous administration of 117 ml Optiray. Coronal and sagittal MIPS were obtained from the axial data set and were submitted for review. All measurements were obtained according to NASCET criteria. A dose lowering technique was u tilized adhering to the principles of ALARA. COMPARISON: Chest radiograph of same day, CT soft tissue neck 10/11/2021. FINDINGS: CTA: Heart is mildly enlarged. No pericardial effusion. Moderate coronary artery calcifications. Atheroscl erosis of the thoracic aorta and great vessels. Multifocal stenoses noted within the subclavian, axil cyrus and brachial arteries. No thoracic aortic aneurysm or dissection. No pulmonary emboli identified . CT CHEST: Unremarkable thyroid. Mild pulmonary emphysema. Mildly enlarged subcarinal and right hilar lymph node s measure up to 10-11 mm. No pneumothorax. Trace right pleural effusion. 5 mm stable low suspicion of solid nodule within the left lung apex. Mild biapical pleural parenchymal scarring. Mild bronchial w all thickening. Multifocal mucous plugging with bronchial wall thickening throughout the right lung. There is near complete opacification noted within the right mainstem bronchus with prominent mucous p lugging extending into the right middle and lower lobes. Dense airspace consolidation within the righ t lung base, most pronounced within the basal segments of the right lower lobe. There are associated intermixed groundglass and centrilobular opacities with intralobular septal thickening. Mild right-sided hydronephrosis. Right-sided renal calculi measure up to 7 mm. Atrophic left kidney. Nonspecific distal esophageal wall thickening. Mild gallbladder distention. Unremarkable soft tissues . No acute fracture. IMPRESSION: 1. No pulmonary emboli identified. 2. Extensive mucous plugging of the right mainstem bronchus, right upper, middle and lower lobe bronc hi with associated airspace opacities compatible with pneumonia versus aspiration pneumonitis. No obs tructing endobronchial lesion is identified, however if there is further clinical concern, bronchosco py may be performed. 3. Trace right parapneumonic effusion. 4. Right nephrolithiasis with partially imaged mild right-sided hydronephrosis. Correlation with urin alysis recommended. 5. Likely reactive mild mediastinal and right hilar lymphadenopathy. ACT 112: Negative or not required by law. The above report was generated using voice recognition software. It may contain grammatical, syntax o r spelling errors. Dictated: 05/08/2023 12:19 PM Transcribed: 05/08/2023 12:39 PM Flor [id number] NOE_Memo [id number] Electronically signed by: Rigo Baptiste M.D. 05/08/2023 12:41 PM
[2023-05-08] MEDS: PIPERACILLIN/TAZOBACTAM 4.5 GM in DEXTROSE 5% MINI-B 100 ML IV SCH (14:04)
[2023-05-08] MEDS: HEPARIN SOD 5,000 UNIT/0.5 ML VIAL SQ SCH (14:04)
[2023-05-08] MEDS: ACETAMINOPHEN 1,000 MG/100 ML VIAL IV STA (15:31)
[2023-05-08] MEDS: VANCOMYCIN HCL 750 MG in SODIUM CHLORIDE 0.9% 250 ML IV SCH (16:01)
[2023-05-08] MEDS: BUDESONIDE 0.25 MG/2 ML VIAL (PULMICORT) NEB SCH (19:48)
[2023-05-08] MEDS: GABAPENTIN 600 MG TAB PO SCH (20:04)
[2023-05-08] MEDS: DOXYCYCLINE HYCLATE 100 MG in DEXTROSE 5% MINI-B 100 ML IV SCH (20:26)
[2023-05-09] MEDS: HYDROmorphone INJ 0.5 MG/0.5 ML SYR IV PRN (05:39)
[2023-05-09 06:24] LABS: BUN Creatinine Ratio 14.4 (10-20); Calcium 8.5 mg/dl (8.6-10.3); Creatinine Clr Calc Pharmacy 26.7 ml/min; Est GFR (African American) 43.8 ml/min; Est GFR (Non-African American) 37.8 ml/min; Magnesium 2.2 mg/dl (1.7-2.4); Phosphorus 3.7 mg/dl (2.5-4.9); Potassium 3.6 mmol/L (3.5-5.1)
[2023-05-09 06:27] LABS: Hematocrit (blood only) 37.8 % (42.0-52.0); Hemoglobin 12.6 g/dl (14.0-18.0); Mean Corpuscular Hemoglobin 29.6 pg (25.0-34.0); Mean Corpuscular Hgb Conc 33.3 g/dL (32.0-36.0); Mean Corpuscular Volume 88.7 fL (80.0-100.0); Mean Platelet Volume 10.6 fL (9.4-12.4); Platelet Count 360 K/uL (130-400); RDW Coefficient of Variation 15.5 % (11.5-14.5); RDW Standard Deviation 50.2 fL (36.4-46.3); Red Blood Count 4.26 M/uL (4.70-6.10); White Blood Count 26.53 K/ul (4.8-10.8)
[2023-05-09 06:37] LABS: Basophils % (auto) 0.4 %; Echinocytes 1+; Immature Granulocytes # (auto) 0.31 K/uL (0.01-0.20); Immature Granulocytes % (auto) 1.2 %; Lymphocytes # (auto) 1.87 K/uL (1.20-3.40); Monocytes # (auto) 1.55 K/uL (0.11-0.59); Monocytes % (auto) 5.8 %; Neutrophils % (auto) 85.6 %
--- NOTE | 2023-05-09 09:15 | Pulmonology Progress Note ---
Date of Service May 09, 2023 Assessment & Plan (1) Right lower lobe pneumonia: (2) Chronic pulmonary aspiration: (3) Malnutrition: Plan Impression: 67-year-old male with a past medical history of tobacco abuse, cervical myelopathy, COPD and severe malnutrition presenting to the hospital due to increasing shortness of breath and cough. CT scan shows an impacted right lower lobe/bronchus intermedius with associated distal airspace opacity concerning for infection Recommendations: 1. Pneumonia: Aspiration remains high on the list. The patient has mucoid impaction of the bronchus intermedius. Will place on aggressive regimen of pulmonary toilet including flutter valve and hypertonic saline. Repeat imaging in 24 hours. The patient was advised that if he is not able to clear his pulmonary secretions, bronchoscopy may be required. If the patient can be out of bed to chair, this will likely improve his pulmonary toilet and respiratory mechanics. Continue to trend fever curve and white blood cell count. Currently day #2 doxycycline, vancomycin and Zosyn. Nasal MRSA screening negative so vancomycin can be discontinued. Can likely de-escalate antimicrobial therapy if cultures remain negative at 24 hours 2. Hypoxemia: Secondary to #1. Continue supplemental oxygen titrated to keep saturations at or above 88%. Admission and Anticipated Discharge Date Admission Date: May 08, 2023 Subjective Patient seen and examined. EMR reviewed. 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 The patient reports that he is doing okay. He is coughing but not really expectorating any phlegm. He denies chest pain or palpitations. He is not experiencing any significant edema. Review of Systems 2 Review of Systems: All systems reviewed & are unremarkable except as noted in Subjective Physical Exam 2 Physical Exam: General- Not in distress Head- atraumatic Eyes- PERRL. ENT- oropharynx clear Neck- supple, no JVD. Lungs- clear to auscultation mild b/l rhonchi and mild expiratory wheezing Heart- regular rhythm;Tachycardia, no murmur, no gallop. Abdomen- normal bowel sounds, soft, nontender, no distension. Extremities- no pretibial edema, no erythema seen Neuro- alert, oriented x 3; PERRL,; no facial palsy; no dysarthria; b/l lower extremity weakness Skin- pressure ulcer on right hip 1.5cm x 1.5cm stage 3 Results & Data Results & Data Vital Signs (Past 12 Hours) Vital Signs Temp Pulse Pulse Resp BP BP Pulse Ox 05/09/23 08:04 37.0 C 97 H 20 131/62 95 05/09/23 07:58 05/09/23 07:22 98 H 15 96 05/09/23 03:20 36.9 C 99 H 18 130/74 95 05/08/23 23:04 37 C 98 H 18 138/67 97 05/08/23 22:00 97 H O2 Del Method O2 Flow Rate 05/09/23 08:04 Oxymask 2.0 05/09/23 07:58 Oxymask 2 05/09/23 07:22 Oxymask 2 05/09/23 03:20 Oxymask 2 05/08/23 23:04 Oxymask 2 05/08/23 22:00 Laboratory Results 05/09/23 05:25 05/09/23 05:25 Diagnostic Findings No new imaging PG Care Time/CCT Total # of Minutes Spent Total Time Spent with Patient: Total time spent is greater than 50% in coordination of care (as documented) at patient's floor/unit and/or counseling patient: Coding Level of Care Code 17823 SUB INP/OBS CARE 2/35MIN Diagnoses Right lower lobe pneumonia J18.9 Chronic pulmonary aspiration T17.908A Malnutrition E46
--- NOTE | 2023-05-09 09:51 | Hospitalist Progress Note ---
Date of Service May 09, 2023 Assessment & Plan (1) Severe sepsis: Plan: 67 yo m with hyperlipidemia, COPD, hypertension, peripheral vascular disease, dural regular venous fistula, CAD per epic but no cardiac disease as per and also per previous cardio notes, constipation, protein calorie monitoring, history of narcotic bowel syndrome, osteoarthritis, lumbar degenerative disc disease, cervical myelopathy, left cervical adenopathy, history of tobacco abuse comes because of not feeling well and hypoxia and found to be in severe sepsis mostly from pneumonia and also have ongoing right hip pressure ulcer. As per yesterday evening patient told her that he was not feeling well and felt like flu coming on. Around 3 AM he woke up and he was was short of breath and was rattling in the chest and diaphoretic and seemed confused and was brought to the hospital. His oxygen saturation were only in 70%. He was placed on nonrebreather in the ER. Had temp spike in the ER.Tachycardic with heart rates in the 140s. Blood pressure holding. Currently patient is alert and oriented. Denies any headache. Denies any chest pain. Has some dry cough. No runny nose. No sore throat. No nausea. No abdominal pain. Somewhat constipated, normal micturition. He has chronic back issues. states he is mostly in the bed not moving much. PT comes home. But does not ambulate much. He is mostly wheelchair-bound. He can transfer from the bed to the wheelchair. Because of his laying in the bed all the time he has pressure ulcers. His pressure ulcers in the sacral region healed up. But still has a ongoing pressure ulcer in the right hip.Patient is following with the wound care. As per no trouble swallowing. Severe sepsis Mostly from right lower lobe pneumonia Also has ongoing right hip pressure ulcer Lactic acid 3.8, WBC 31 temperature 37.8. Heart heart rates in 140s. Procalcitonin 4.6 Received aggressive fluids Received IV cefepime in the ER Will continue with IV Vanco and Zosyn and p.o. Doxy IVF received on admission - stopped now repeat lactic acid 1.5 tachycardia has resolved and blood pressure is stable Will closely monitor the hemodynamics Follow cultures Respiratory bio fire negative UA is pending Telemetry for now Respiratory distress COPD exacerbation Pneumonia - Aspiration Requiring high oxygen supplementation ABGs are okay Antibiotics as above Nebs [id number] and as needed IV Solu-Medrol given in ER, now stopped Pulmonary consult Close monitor Right hip pressure ulcer stage III Follow the cultures Follow the x-ray Wound care. Elevated troponin Mostly demand ischemia We will follow serial enzymes CKD stage III Presented with creatinine of 1.8 which seems to be around baseline as per epic Will follow the labs Hypomagnesia Will replace Follow labs Hypertension Will hold amlodipine for severe sepsis Restart when able Ambulate dysfunction Chronic back pain On pain meds Wheelchair-bound Can do transfers PT OT when stable Peripheral vascular disease On aspirin and statin GERD Protonix DVT prophylaxis Heparin subcu Disposition Telemetry Full code per discussion with the Admission and Anticipated Discharge Date Admission Date: May 08, 2023 Subjective Pt seen in follow up of sepsis, PNA, hypoxic resp. failure Pulmonary medicine also consulted - concern for aspiration, cont. abx for now Currently sitting up in bed in NAD, feeling better on 2 L of oxygen Pt's present at the bedside and updated Denies any chest pain, shortness of breath, has productive cough Review of Systems Review of Systems: All systems reviewed & are unremarkable except as noted in Subjective Physical Exam Physical Exam: General- thin M , + chronically ill appearing, on suppl. O2, in NAD Head- atraumatic Eyes- PERRL. ENT- oropharynx clear Neck- supple, no JVD. Lungs- + b/l rhonchi and mild expiratory wheezing Heart- regular rhythm, no murmur, no gallop. Abdomen- normal bowel sounds, soft, nontender, no distension. Extremities- no pretibial edema, no erythema seen Neuro- alert, oriented x 3; PERRL,; no facial palsy; no dysarthria; b/l lower extremity weakness Skin- pressure ulcer on right hip ~ 1.5cm x 1.5cm Results & Data Results & Data Vital Signs (Past 12 Hours) Vital Signs Temp Pulse Pulse Resp BP BP Pulse Ox 05/09/23 08:04 37.0 C 97 H 20 131/62 95 05/09/23 07:58 05/09/23 07:22 98 H 15 96 05/09/23 03:20 36.9 C 99 H 18 130/74 95 05/08/23 23:04 37 C 98 H 18 138/67 97 05/08/23 22:00 97 H O2 Del Method O2 Flow Rate 05/09/23 08:04 Oxymask 2.0 05/09/23 07:58 Oxymask 2 05/09/23 07:22 Oxymask 2 05/09/23 03:20 Oxymask 2 05/08/23 23:04 Oxymask 2 05/08/23 22:00 Laboratory Results 05/09/23 05/08/23 05/08/23 Range/Units 05:25 19:30 12:45 WBC 26.53 H (4.8-10.8) K/ul RBC 4.26 L (4.70-6.10) M/uL Hgb 12.6 L D (14.0-18.0) g/dl Hct 37.8 L (42.0-52.0) % MCV 88.7 (80.0-100.0) fL MCH 29.6 (25.0-34.0) pg MCHC 33.3 (32.0-36.0) g/dL RDW Std Deviation 50.2 H (36.4-46.3) fL RDW Coeff of [place] 15.5 H (11.5-14.5) % Plt Count 360 (130-400) K/uL MPV 10.6 (9.4-12.4) fL Immature Gran % (Auto) 1.2 % Neut % (Auto) 85.6 % Lymph % (Auto) 7.0 % [place] % (Auto) 5.8 % Eos % (Auto) 0.0 % Baso % (Auto) 0.4 % Neut # (Auto) 22.70 H (1.40-6.50) K/uL Lymph # (Auto) 1.87 (1.20-3.40) K/uL [place] # (Auto) 1.55 H (0.11-0.59) K/uL Eos # (Auto) 0.00 (0.00-0.50) K/uL Baso # (Auto) 0.10 (0.00-0.20) K/uL Immature Gran # (Auto) 0.31 H (0.01-0.20) K/uL Echinocytes 1+ ABG pH (7.35-7.45) ABG pCO2 (35-46) mmHg ABG pO2 (80-95) mmHg ABG HCO3 (19-24) mmol/L ABG O2 Saturation (90-95) % ABG Base Excess (-9-1.8) mEq/L Ant Test (Pos) Oxygen Given Sodium 142 (136-145) mmol/L Potassium 3.6 (3.5-5.1) mmol/L Chloride 111 H (98-107) mmol/L Carbon Dioxide 21 (21-32) mmol/L Anion Gap 10 (3-11) BUN 26 H (6-23) mg/dl Creatinine 1.80 H (0.6-1.4) mg/dl Est Cr Clr Drug Dosing 26.7 ml/min Est GFR ( Amer) 43.8 ml/min Est GFR (Non-Af Amer) 37.8 ml/min BUN/Creatinine Ratio 14.4 (10-20) Glucose 120 H (70-99(Fasting)) mg/dl Lactate (0.4-2.0) mmol/L Calcium 8.5 L (8.6-10.3) mg/dl Phosphorus 3.7 (2.5-4.9) mg/dl Magnesium 2.2 (1.7-2.4) mg/dl Troponin I High Sens 97.9 H* D 214.0 H* (0-20) pg/ml B-Natriuretic Peptide 487 H (0-100) pg/ml Nasal Screen MRSA (PCR) (Negative) 05/08/23 05/08/23 05/08/23 Range/Units 11:45 11:07 10:18 WBC (4.8-10.8) K/ul RBC (4.70-6.10) M/uL Hgb (14.0-18.0) g/dl Hct (42.0-52.0) % MCV (80.0-100.0) fL MCH (25.0-34.0) pg MCHC (32.0-36.0) g/dL RDW Std Deviation (36.4-46.3) fL RDW Coeff of [place] (11.5-14.5) % Plt Count (130-400) K/uL MPV (9.4-12.4) fL Immature Gran % (Auto) % Neut % (Auto) % Lymph % (Auto) % [place] % (Auto) % Eos % (Auto) % Baso % (Auto) % Neut # (Auto) (1.40-6.50) K/uL Lymph # (Auto) (1.20-3.40) K/uL [place] # (Auto) (0.11-0.59) K/uL Eos # (Auto) (0.00-0.50) K/uL Baso # (Auto) (0.00-0.20) K/uL Immature Gran # (Auto) (0.01-0.20) K/uL Echinocytes ABG pH 7.37 (7.35-7.45) ABG pCO2 33 L (35-46) mmHg ABG pO2 83 (80-95) mmHg ABG HCO3 19 (19-24) mmol/L ABG O2 Saturation 96.7 H (90-95) % ABG Base Excess -5.3 (-9-1.8) mEq/L Ant Test Pos (Pos) Oxygen Given 10L Sodium (136-145) mmol/L Potassium (3.5-5.1) mmol/L Chloride (98-107) mmol/L Carbon Dioxide (21-32) mmol/L Anion Gap (3-11) BUN (6-23) mg/dl Creatinine (0.6-1.4) mg/dl Est Cr Clr Drug Dosing ml/min Est GFR ( Amer) ml/min Est GFR (Non-Af Amer) ml/min BUN/Creatinine Ratio (10-20) Glucose (70-99(Fasting)) mg/dl Lactate 1.5 (0.4-2.0) mmol/L Calcium (8.6-10.3) mg/dl Phosphorus (2.5-4.9) mg/dl Magnesium (1.7-2.4) mg/dl Troponin I High Sens (0-20) pg/ml B-Natriuretic Peptide (0-100) pg/ml Nasal Screen MRSA (PCR) Negative (Negative) 05/08/23 Range/Units 09:19 WBC (4.8-10.8) K/ul RBC (4.70-6.10) M/uL Hgb (14.0-18.0) g/dl Hct (42.0-52.0) % MCV (80.0-100.0) fL MCH (25.0-34.0) pg MCHC (32.0-36.0) g/dL RDW Std Deviation (36.4-46.3) fL RDW Coeff of [place] (11.5-14.5) % Plt Count (130-400) K/uL MPV (9.4-12.4) fL Immature Gran % (Auto) % Neut % (Auto) % Lymph % (Auto) % [place] % (Auto) % Eos % (Auto) % Baso % (Auto) % Neut # (Auto) (1.40-6.50) K/uL Lymph # (Auto) (1.20-3.40) K/uL [place] # (Auto) (0.11-0.59) K/uL Eos # (Auto) (0.00-0.50) K/uL Baso # (Auto) (0.00-0.20) K/uL Immature Gran # (Auto) (0.01-0.20) K/uL Echinocytes ABG pH (7.35-7.45) ABG pCO2 (35-46) mmHg ABG pO2 (80-95) mmHg ABG HCO3 (19-24) mmol/L ABG O2 Saturation (90-95) % ABG Base Excess (-9-1.8) mEq/L Ant Test (Pos) Oxygen Given Sodium (136-145) mmol/L Potassium (3.5-5.1) mmol/L Chloride (98-107) mmol/L Carbon Dioxide (21-32) mmol/L Anion Gap (3-11) BUN (6-23) mg/dl Creatinine (0.6-1.4) mg/dl Est Cr Clr Drug Dosing ml/min Est GFR ( Amer) ml/min Est GFR (Non-Af Amer) ml/min BUN/Creatinine Ratio (10-20) Glucose (70-99(Fasting)) mg/dl Lactate (0.4-2.0) mmol/L Calcium (8.6-10.3) mg/dl Phosphorus (2.5-4.9) mg/dl Magnesium (1.7-2.4) mg/dl Troponin I High Sens 248.7 H* D (0-20) pg/ml B-Natriuretic Peptide (0-100) pg/ml Nasal Screen MRSA (PCR) (Negative) Medications Administered Current Inpatient Medications Acetaminophen (Acetaminophen 325 Mg Tab) 650 mg PO Q4H PRN PRN Reason: Pain or Fever Stop: 04/02/24 08:35 Amlodipine Besylate (Amlodipine Besylate 5 Mg Tab) 10 mg PO DAILY [facility] Stop: 06/07/23 08:59 Aspirin (Aspirin 81 Mg Ectab) 81 mg PO DAILY [facility] Stop: 06/07/23 08:59 Last Admin: 05/09/23 07:53 Dose: Not Given Atorvastatin Calcium (Atorvastatin 20 Mg Tab) 20 mg PO DAILY [facility] Stop: 06/07/23 08:59 Last Admin: 05/09/23 07:53 Dose: Not Given Budesonide (Budesonide 0.25 Mg/2 Ml Vial (Pulmicort)) 0.5 mg NEB BIDR [facility] Stop: 06/08/23 18:59 Docusate Sodium (Docusate Sodium 100 Mg Cap) 100 mg PO BID [facility] Stop: 06/07/23 08:59 Last Admin: 05/09/23 07:53 Dose: Not Given Folic Acid (Folic Acid 1 Mg Tab) 1 mg PO DAILY [facility] Stop: 06/07/23 08:59 Last Admin: 05/09/23 07:53 Dose: Not Given Formoterol Fumarate (Formoterol 20 Mcg/2 Ml Vial) 20 mcg NEB BIDR [facility] Stop: 06/07/23 11:29 Last Admin: 05/09/23 07:22 Dose: 20 mcg Gabapentin (Gabapentin 300 Mg Cap) 300 mg PO 0900,1400 [facility] Stop: 06/07/23 08:59 Last Admin: 05/09/23 07:53 Dose: Not Given Gabapentin (Gabapentin 600 Mg Tab) 600 mg PO HS [facility] Stop: 06/07/23 20:59 Last Admin: 05/08/23 20:04 Dose: Not Given Guaifenesin (Guaifenesin 600 Mg Tabcr) 1,200 mg PO Q12 [facility] Stop: 06/08/23 20:59 Heparin Sodium (Porcine) (Heparin Sod 5,000 Unit/0.5 Ml Vial) 5,000 units SQ Q8 [facility] Stop: 06/07/23 13:59 Last Admin: 05/09/23 05:36 Dose: 5,000 units Hydromorphone HCl (Hydromorphone Inj 0.5 Mg/0.5 Ml Syr) 0.25 mg IV Q6H PRN PRN Reason: Mod-Sev Pain (Scale 4-10) Stop: 05/23/23 03:55 Last Admin: 05/09/23 05:39 Dose: 0.25 mg Piperacillin Sod/Tazobactam (Sod 4.5 gm/ Dextrose) 100 mls @ 25 mls/hr IV Q8H [facility]; Protocol Stop: 05/15/23 13:29 Last Infusion: 05/09/23 09:28 Dose: Infused Vancomycin HCl 750 mg/ Sodium (Chloride) 265 mls @ 200 mls/hr IV Q24H [facility] Stop: 05/15/23 15:59 Last Infusion: 05/08/23 18:04 Dose: Infused Doxycycline Hyclate 100 mg/ (Dextrose) 100 mls @ 50 mls/hr IV Q12H [facility] Stop: 05/15/23 19:59 Last Infusion: 05/09/23 09:28 Dose: Infused Ipratropium Ebro (Ipratropium Ebro Neb Soln 0.02% 0.5mg/2.5ml Vial) 0.5 mg INH QIDR [facility] Stop: 06/07/23 10:59 Last Admin: 05/09/23 07:22 Dose: Not Given Levalbuterol HCl (Levalbuterol 1.25 Mg/3 Ml Neb) 1.25 mg NEB QIDR [facility] Stop: 06/07/23 10:59 Last Admin: 05/09/23 07:22 Dose: Not Given Miscellaneous Information (Vancomycin Consult Active) 1 each N/A UD PRN PRN Reason: Consult Stop: 06/07/23 06:23 Multivitamins (Multivitamin Tab) 1 tab PO DAILY [facility] Stop: 06/07/23 08:59 Last Admin: 05/09/23 07:53 Dose: Not Given Nitroglycerin (Nitroglycerin Sl 0.4 Mg/Tab Tab) 0.4 mg SL Q5M PRN PRN Reason: Chest Pain Stop: 06/07/23 08:35 Oxycodone HCl (Oxycodone Hcl Ir 5 Mg Tab (Immediate Release)) 5 mg PO Q6H PRN PRN Reason: Pain Stop: 05/22/23 08:35 Pantoprazole Sodium (Pantoprazole 40 Mg Tab) 40 mg PO BID [facility] Stop: 06/07/23 08:59 Last Admin: 05/09/23 07:54 Dose: Not Given Potassium Chloride (Potassium Chloride 10 Meq Tabcr) 10 meq PO DAILY [facility] Stop: 06/07/23 08:59 Last Admin: 05/09/23 07:54 Dose: Not Given Sodium Chloride (Sodium Chlor 7% 4 Ml Neb) 4 ml NEB BIDR [facility] Stop: 06/08/23 18:59 Thiamine HCl (Thiamine Hcl 100 Mg Tab) 100 mg PO DAILY [facility] Stop: 06/07/23 08:59 Last Admin: 05/09/23 07:54 Dose: Not Given Vitamin B Complex/Folic Acid (Nephrocaps) 1 cap PO DAILY [facility] Stop: 06/07/23 08:59 Last Admin: 05/09/23 07:54 Dose: Not Given
[2023-05-09] MEDS: CLOTRIMAZOLE 1% CR 15 GM TUBE EXT SCH (15:00)
[2023-05-09] MEDS: SODIUM CHLOR 7% 4 ML NEB NEB SCH (20:04)
[2023-05-09] MEDS: BUDESONIDE 0.25 MG/2 ML VIAL (PULMICORT) NEB SCH (20:05)
[2023-05-09] MEDS: guaiFENesin 600 MG TABCR PO SCH (20:12)
--- NOTE | 2023-05-10 07:14 | XRay Report ---
XR chest 1V portable CLINICAL HISTORY: pna TECHNIQUE: Single frontal radiograph of the chest was obtained. Comparison: Comparison is made to chest radiograph 05/08/[address] chest 05/08/2023 FINDINGS: No lines and tubes are seen. The cardiomediastinal silhouette is normal. Interval significant improve ment in right lower lung airspace opacity. No evidence of pleural effusion or pneumothorax. IMPRESSION: Previously noted right lower lung airspace opacity has significantly improved, compatible with improv ing pneumonia/aspiration. ACT 112: Negative or not required by law. Electronically signed by: Lucian Perez M.D. 05/10/2023 7:13 AM
[2023-05-10 07:57] LABS: Hemoglobin 11.9 g/dl (14.0-18.0); Mean Corpuscular Hemoglobin 29.5 pg (25.0-34.0); Mean Corpuscular Hgb Conc 33.1 g/dL (32.0-36.0); Mean Corpuscular Volume 89.1 fL (80.0-100.0); Mean Platelet Volume 10.3 fL (9.4-12.4); Platelet Count 311 K/uL (130-400); RDW Coefficient of Variation 15.6 % (11.5-14.5); RDW Standard Deviation 51.1 fL (36.4-46.3); Red Blood Count 4.04 M/uL (4.70-6.10); White Blood Count 20.23 K/ul (4.8-10.8)
[2023-05-10 08:18] LABS: BUN Creatinine Ratio 14.7 (10-20); Calcium 8.9 mg/dl (8.6-10.3); Creatinine Clr Calc Pharmacy 36.8 ml/min; Est GFR (African American) 52.1 ml/min; Phosphorus 3.1 mg/dl (2.5-4.9); Potassium 3.5 mmol/L (3.5-5.1)
--- NOTE | 2023-05-10 09:17 | Pulmonology Progress Note ---
Date of Service May 10, 2023 Assessment & Plan (1) Right lower lobe pneumonia: (2) Chronic pulmonary aspiration: (3) Malnutrition: Plan Impression: 67-year-old male with a past medical history of tobacco abuse, cervical myelopathy, COPD and severe malnutrition presenting to the hospital due to increasing shortness of breath and cough. CT scan shows an impacted right lower lobe/bronchus intermedius with associated distal airspace opacity concerning for infection Recommendations: 1. Pneumonia: RIGHT lower lobe infiltrative finding appreciated on admission. His imaging studies were reviewed this morning and do show significant improvement. Video swallow is pending today. 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 Continue with aggressive pulmonary toileting. Patient is down to room air at this time. No need for bronchoscopic intervention at this point. Can likely de-escalate antibiotics to oral as long as cultures are otherwise unremarkable. Overall, patient's symptoms have greatly improved. 2. Hypoxemia: Secondary to #1. Continue supplemental oxygen titrated to keep saturations at or above 88%. Thank you for allowing us to participate in the care of this patient. Admission and Anticipated Discharge Date Admission Date: May 08, 2023 Subjective Patient seen and evaluated by myself. He reports that he had continued to perform pulmonary toileting yesterday and had significant coughing with airway clearing. He states that his cough is subsided and he is not clearing anything out. He is improved and has been on room air since last night. He reports feeling "100% better." His is present in the room and she confirms that she thinks he looks and sounds much better today. Review of Systems Review of Systems: Unchanged from admission. Physical Exam Physical Exam: VITAL SIGNS - Vital signs and nursing notes were reviewed. GENERAL - 67-year-old male appearing his stated age who is in no acute distress. Communicates well with provider and answers questions appropriately. LUNGS - Significantly kyphotic and scoliotic appearing. Auscultation reveals clear breath sounds without wheezes, rales, or rhonchi appreciated. CARDIAC - RRR with S1/S2. No murmur, rubs, or gallops appreciated. PSYCH - A&Ox3 and cooperates fully with examiner. Pt is very pleasant and interacts well with examiner. Results & Data Results & Data Vital Signs (Past 12 Hours) Vital Signs Temp Pulse Pulse Resp BP BP Pulse Ox 05/10/23 08:00 05/10/23 07:44 36.2 C L 90 20 156/74 H 94 05/10/23 07:33 70 18 95 05/10/23 03:04 36.6 C 76 20 155/70 H 99 05/09/23 23:18 36.7 C 95 H 20 136/71 95 05/09/23 22:01 101 H 05/09/23 21:27 O2 Del Method O2 Flow Rate 05/10/23 08:00 Oxymask 2 05/10/23 07:44 Room Air 05/10/23 07:33 Room Air 05/10/23 03:04 Room Air 05/09/23 23:18 Room Air 05/09/23 22:01 05/09/23 21:27 Room Air PG Care Time/CCT Total # of Minutes Spent Total Time Spent with Patient: Total time spent is greater than 50% in coordination of care (as documented) at patient's floor/unit and/or counseling patient: Coding Level of Care Code 87987 SUB INP/OBS CARE 2/35MIN Diagnoses Right lower lobe pneumonia J18.9 Chronic pulmonary aspiration T17.908A Malnutrition E46
--- NOTE | 2023-05-10 10:00 | Hospitalist Progress Note ---
Date of Service May 10, 2023 Assessment & Plan (1) Severe sepsis: Plan: 67 yo m with hyperlipidemia, COPD, hypertension, peripheral vascular disease, dural regular venous fistula, CAD per epic but no cardiac disease as per and also per previous cardio notes, constipation, protein calorie monitoring, history of narcotic bowel syndrome, osteoarthritis, lumbar degenerative disc disease, cervical myelopathy, left cervical adenopathy, history of tobacco abuse comes because of not feeling well and hypoxia and found to be in severe sepsis mostly from pneumonia and also have ongoing right hip pressure ulcer. As per yesterday evening patient told her that he was not feeling well and felt like flu coming on. Around 3 AM he woke up and he was was short of breath and was rattling in the chest and diaphoretic and seemed confused and was brought to the hospital. His oxygen saturation were only in 70%. He was placed on nonrebreather in the ER. Had temp spike in the ER.Tachycardic with heart rates in the 140s. Blood pressure holding. Currently patient is alert and oriented. Denies any headache. Denies any chest pain. Has some dry cough. No runny nose. No sore throat. No nausea. No abdominal pain. Somewhat constipated, normal micturition. He has chronic back issues. states he is mostly in the bed not moving much. PT comes home. But does not ambulate much. He is mostly wheelchair-bound. He can transfer from the bed to the wheelchair. Because of his laying in the bed all the time he has pressure ulcers. His pressure ulcers in the sacral region healed up. But still has a ongoing pressure ulcer in the right hip.Patient is following with the wound care. As per no trouble swallowing. Severe sepsis Secondary to right lower lobe pneumonia (aspiration pna) Also has ongoing right hip pressure ulcer Lactic acid 3.8, WBC 31 temperature 37.8. Heart heart rates in 140s. Procalcitonin 4.6 Received aggressive fluids Received IV cefepime in the ER Continue with IV Vanco and Zosyn and p.o. Doxy IVF received on admission - stopped now repeat lactic acid 1.5 tachycardia has resolved and blood pressure is stable Will closely monitor the hemodynamics Follow cultures Respiratory bio fire negative UA - will repeat as nonspecific cultx Sputum cultx - no growth Blood cultx - ngtd wound cultx - posit. as outpt for yeast - pending now Telemetry for now Respiratory distress COPD exacerbation Pneumonia - Aspiration Requiring high oxygen supplementation ABGs are okay Antibiotics as above Nebs [id number] and as needed IV Solu-Medrol given in ER, now stopped Pulmonary consulted Close monitor Pt currently on RA Speech eval d/t concern for aspiration - c/w aspiration Right hip pressure ulcer stage III Follow the cultures - outpt cultx posit. for missael and pt treated w/ topical antifungal Hip x-ray - no acute abnormality Wound care. Elevated troponin Mostly demand ischemia We will follow serial enzymes CKD stage III Presented with creatinine of 1.8 which seems to be around baseline as per epic Will follow the labs Hypomagnesia Will replace Follow labs Hypertension Will hold amlodipine for severe sepsis Restart when able Ambulate dysfunction Chronic back pain On pain meds Wheelchair-bound Can do transfers PT OT when stable Peripheral vascular disease On aspirin and statin GERD Protonix DVT prophylaxis Heparin subcu Disposition Telemetry Full code per discussion with the Admission and Anticipated Discharge Date Admission Date: May 08, 2023 Subjective Pt seen in follow up of sepsis, PNA, hypoxic resp. failure Pulmonary medicine also consulted - concern for aspiration, cont. abx for now Currently sitting up in bed in NAD, feeling better on RA now Denies any chest pain, shortness of breath, has productive cough Speech eval done today - c/w aspiration Plan for rehab when medically stable Review of Systems Review of Systems: All systems reviewed & are unremarkable except as noted in Subjective Physical Exam Physical Exam: General- thin M , + chronically ill appearing, on RA, in NAD Head- atraumatic Eyes- PERRL. ENT- oropharynx clear Neck- supple, no JVD. Lungs- + mild b/l rhonchi Heart- regular rhythm, no murmur, no gallop. Abdomen- normal bowel sounds, soft, nontender, no distension. Extremities- no pretibial edema, no erythema seen Neuro- alert, oriented x 3; PERRL,; no facial palsy; no dysarthria; b/l lower extremity weakness Skin- pressure ulcer on right hip ~ 1.5cm x 1.5cm Results & Data Results & Data Vital Signs (Past 12 Hours) Vital Signs Temp Pulse Pulse Resp BP BP Pulse Ox 05/10/23 08:00 05/10/23 07:44 36.2 C L 90 20 156/74 H 94 05/10/23 07:33 70 18 95 05/10/23 03:04 36.6 C 76 20 155/70 H 99 05/09/23 23:18 36.7 C 95 H 20 136/71 95 05/09/23 22:01 101 H O2 Del Method O2 Flow Rate 05/10/23 08:00 Oxymask 2 05/10/23 07:44 Room Air 05/10/23 07:33 Room Air 05/10/23 03:04 Room Air 05/09/23 23:18 Room Air 05/09/23 22:01 Laboratory Results 05/10/23 Range/Units 07:41 WBC 20.23 H (4.8-10.8) K/ul RBC 4.04 L (4.70-6.10) M/uL Hgb 11.9 L (14.0-18.0) g/dl Hct 36.0 L (42.0-52.0) % MCV 89.1 (80.0-100.0) fL MCH 29.5 (25.0-34.0) pg MCHC 33.1 (32.0-36.0) g/dL RDW Std Deviation 51.1 H (36.4-46.3) fL RDW Coeff of [place] 15.6 H (11.5-14.5) % Plt Count 311 (130-400) K/uL MPV 10.3 (9.4-12.4) fL Sodium 142 (136-145) mmol/L Potassium 3.5 (3.5-5.1) mmol/L Chloride 111 H (98-107) mmol/L Carbon Dioxide 23 (21-32) mmol/L Anion Gap 8 (3-11) BUN 23 (6-23) mg/dl Creatinine 1.56 H (0.6-1.4) mg/dl Est Cr Clr Drug Dosing 36.8 ml/min Est GFR ( Amer) 52.1 ml/min Est GFR (Non-Af Amer) 45.0 ml/min BUN/Creatinine Ratio 14.7 (10-20) Glucose 90 (70-99(Fasting)) mg/dl Calcium 8.9 (8.6-10.3) mg/dl Phosphorus 3.1 (2.5-4.9) mg/dl Magnesium 2.0 (1.7-2.4) mg/dl Medications Administered Current Inpatient Medications Acetaminophen (Acetaminophen 325 Mg Tab) 650 mg PO Q4H PRN PRN Reason: Pain or Fever Stop: 06/07/23 08:35 Amlodipine Besylate (Amlodipine Besylate 5 Mg Tab) 10 mg PO DAILY [facility] Stop: 06/07/23 08:59 Aspirin (Aspirin 81 Mg Ectab) 81 mg PO DAILY [facility] Stop: 06/07/23 08:59 Last Admin: 05/10/23 07:52 Dose: 81 mg Atorvastatin Calcium (Atorvastatin 20 Mg Tab) 20 mg PO DAILY [facility] Stop: 06/07/23 08:59 Last Admin: 05/10/23 07:53 Dose: 20 mg Budesonide (Budesonide 0.25 Mg/2 Ml Vial (Pulmicort)) 0.5 mg NEB BIDR [facility] Stop: 06/08/23 18:59 Last Admin: 05/10/23 07:32 Dose: 0.5 mg Clotrimazole (Clotrimazole 1% Cr 15 Gm Tube) 1 appln EXT BID [facility] Stop: 06/08/23 14:29 Last Admin: 05/10/23 07:55 Dose: 1 appln Docusate Sodium (Docusate Sodium 100 Mg Cap) 100 mg PO BID [facility] Stop: 06/07/23 08:59 Last Admin: 05/10/23 07:52 Dose: 100 mg Folic Acid (Folic Acid 1 Mg Tab) 1 mg PO DAILY [facility] Stop: 06/07/23 08:59 Last Admin: 05/10/23 07:53 Dose: 1 mg Formoterol Fumarate (Formoterol 20 Mcg/2 Ml Vial) 20 mcg NEB BIDR [facility] Stop: 06/07/23 11:29 Last Admin: 05/10/23 07:32 Dose: 20 mcg Gabapentin (Gabapentin 300 Mg Cap) 300 mg PO 0900,1400 [facility] Stop: 06/07/23 08:59 Last Admin: 05/10/23 07:52 Dose: 300 mg Gabapentin (Gabapentin 600 Mg Tab) 600 mg PO HS [facility] Stop: 06/07/23 20:59 Last Admin: 05/09/23 20:12 Dose: Not Given Guaifenesin (Guaifenesin 600 Mg Tabcr) 1,200 mg PO Q12 [facility] Stop: 06/08/23 20:59 Last Admin: 05/10/23 07:55 Dose: 1,200 mg Heparin Sodium (Porcine) (Heparin Sod 5,000 Unit/0.5 Ml Vial) 5,000 units SQ Q8 [facility] Stop: 06/07/23 13:59 Last Admin: 05/10/23 05:01 Dose: 5,000 units Hydromorphone HCl (Hydromorphone Inj 0.5 Mg/0.5 Ml Syr) 0.25 mg IV Q6H PRN PRN Reason: Mod-Sev Pain (Scale 4-10) Stop: 05/23/23 03:55 Last Admin: 05/10/23 05:09 Dose: 0.25 mg Piperacillin Sod/Tazobactam (Sod 4.5 gm/ Dextrose) 100 mls @ 25 mls/hr IV Q8H [facility]; Protocol Stop: 05/15/23 13:29 Last Infusion: 05/10/23 09:25 Dose: Infused Vancomycin HCl 750 mg/ Sodium (Chloride) 265 mls @ 200 mls/hr IV Q24H [facility] Stop: 05/15/23 15:59 Last Infusion: 05/09/23 17:21 Dose: Infused Doxycycline Hyclate 100 mg/ (Dextrose) 100 mls @ 50 mls/hr IV Q12H [facility] Stop: 05/15/23 19:59 Last Admin: 05/10/23 07:50 Dose: 50 mls/hr Ipratropium [place] (Ipratropium [place] Neb Soln 0.02% 0.5mg/2.5ml Vial) 0.5 mg INH QIDR [facility] Stop: 06/07/23 10:59 Last Admin: 05/10/23 07:32 Dose: Not Given Levalbuterol HCl (Levalbuterol 1.25 Mg/3 Ml Neb) 1.25 mg NEB QIDR [facility] Stop: 06/07/23 10:59 Last Admin: 05/10/23 07:33 Dose: Not Given Miscellaneous Information (Vancomycin Consult Active) 1 each N/A UD PRN PRN Reason: Consult Stop: 06/07/23 06:23 Multivitamins (Multivitamin Tab) 1 tab PO DAILY [facility] Stop: 06/07/23 08:59 Last Admin: 05/10/23 07:53 Dose: 1 tab Nitroglycerin (Nitroglycerin Sl 0.4 Mg/Tab Tab) 0.4 mg SL Q5M PRN PRN Reason: Chest Pain Stop: 06/07/23 08:35 Oxycodone HCl (Oxycodone Hcl Ir 5 Mg Tab (Immediate Release)) 5 mg PO Q6H PRN PRN Reason: Pain Stop: 05/22/23 08:35 Pantoprazole Sodium (Pantoprazole 40 Mg Tab) 40 mg PO BID [facility] Stop: 06/07/23 08:59 Last Admin: 05/10/23 07:51 Dose: 40 mg Potassium Chloride (Potassium Chloride 10 Meq Tabcr) 10 meq PO DAILY [facility] Stop: 06/07/23 08:59 Last Admin: 05/10/23 07:53 Dose: 10 meq Sodium Chloride (Sodium Chlor 7% 4 Ml Neb) 4 ml NEB BIDR [facility] Stop: 06/08/23 18:59 Last Admin: 05/10/23 07:31 Dose: 4 ml Thiamine HCl (Thiamine Hcl 100 Mg Tab) 100 mg PO DAILY [facility] Stop: 06/07/23 08:59 Last Admin: 05/10/23 07:54 Dose: 100 mg Vitamin B Complex/Folic Acid (Nephrocaps) 1 cap PO DAILY [facility] Stop: 06/07/23 08:59 Last Admin: 05/10/23 07:53 Dose: 1 cap
--- NOTE | 2023-05-10 10:35 | Fluoroscopy Report ---
FL video swallow CLINICAL HISTORY: 67 years-old Male with r/o aspiration. Dysphagia with possible aspiration TECHNIQUE: Video fluoroscopic evaluation of swallowing was performed in the AP and lateral projection s by the speech pathology staff. The patient is fed varying consistencies of barium FLUOROSCOPY TIME: 1.33 minutes. 2773 images. 5.63. mGy COMPARISON STUDY: None. FINDINGS: Aspiration with thin liquid barium. Vallecular retention noted throughout the study. Patien t was unable to swallow the barium pudding with cracker consistency. There is decreased hyoid excursi on and epiglottic deflection throughout the exam. IMPRESSION: 1. Aspiration with thin liquid barium. 2. Please see the speech pathologist report for detailed findings and recommendations. ACT 112: Negative or not required by law. Electronically signed by: Rigo Baptiste M.D. 05/10/2023 10:33 AM
[2023-05-10] MEDS: POTASSIUM CHLORIDE / WTR 10 MEQ/100 ML PLCT IV SCH (10:46)
--- NOTE | 2023-05-10 13:33 | Pharmacy Report ---
Pharmacy PK ABX Note - Date of Service May 10, 2023 - Assessment and Plan Assessment 05/09: Reviewed vancomycin level which is predicting a therapeutic AUC/ANN. Continue current regimen 05/07: 67 year old M receiving vancomycin/zosyn, po doxycycline for treatment of sepsis/pneumonia. MRSA nasal screen pending. Pertinent microbiologic data includes: right hip culture pending, urine culture pending, blood culture x 2. WBC 31, Procal 4.6. SCr 1.84, Plan Vancomycin * Maintenance dose: 750 mg IV every 24 hours * Regimen is predicted to achieve target AUC/ANN of 400-600 mg/L.hr * Will order level if continued >48 hours Pharmacy will continue to follow and will adjust dose/frequency as necessary. Thank you. Pharmacy has transitioned to AUC monitoring for vancomycin. AUC/ANN is the preferred PK/PD target and is associated with decreased risk of nephrotoxicity compared to traditional trough targets.
[2023-05-10] MEDS: oxyCODONE HCL IR 5 MG TAB (IMMEDIATE RELEASE) PO PRN (22:04)
[2023-05-11 06:00] LABS: Hemoglobin 11.3 g/dl (14.0-18.0); Mean Corpuscular Hemoglobin 28.9 pg (25.0-34.0); Mean Corpuscular Hgb Conc 32.3 g/dL (32.0-36.0); Mean Corpuscular Volume 89.5 fL (80.0-100.0); Mean Platelet Volume 10.5 fL (9.4-12.4); Platelet Count 301 K/uL (130-400); RDW Coefficient of Variation 15.7 % (11.5-14.5); RDW Standard Deviation 51.2 fL (36.4-46.3); Red Blood Count 3.91 M/uL (4.70-6.10); White Blood Count 15.49 K/ul (4.8-10.8)
[2023-05-11 06:22] LABS: BUN Creatinine Ratio 12.9 (10-20); Calcium 8.7 mg/dl (8.6-10.3); Est GFR (Non-African American) 48.3 ml/min; Magnesium 1.9 mg/dl (1.7-2.4); Phosphorus 2.8 mg/dl (2.5-4.9); Potassium 3.7 mmol/L (3.5-5.1)
--- NOTE | 2023-05-11 08:18 | Pulmonology Progress Note ---
Date of Service May 11, 2023 Assessment & Plan (1) Right lower lobe pneumonia: (2) Chronic pulmonary aspiration: (3) Malnutrition: Plan Impression: 67-year-old male with a past medical history of tobacco abuse, cervical myelopathy, COPD and severe malnutrition presenting to the hospital due to increasing shortness of breath and cough. CT scan shows an impacted right lower lobe/bronchus intermedius with associated distal airspace opacity concerning for infection Recommendations: 1. Pneumonia: RIGHT lower lobe infiltrative finding appreciated on admission. Day #4 Zosyn vancomycin. White blood cell count decreasing and fever curve improved. Cultures no growth to date. Recommend de-escalating to oral Augmentin for a total of 10 days therapy. 2. Hypoxemia: Resolved. 3. Aspiration noted on video swallow: Management per primary service. Patient is at risk for recurrent aspiration events if not addressed. This point in time the patient's pulmonary issues appear to be resolved. Pulmonary will sign off. Feel free to contact us if we can be of additional assistance Admission and Anticipated Discharge Date Admission Date: May 08, 2023 Subjective Patient seen and examined. EMR reviewed. The patient is doing well clinically. He is off oxygen. He states the pulmonary adjuncts we have used been highly effective in improving his pulmonary clearance. He is coughing and clearing yellow to clear phlegm. No fevers chills or night sweats. His appetite is good. He is anxious to be dismissed from the hospital. Review of Systems 2 Review of Systems: All systems reviewed & are unremarkable except as noted in Subjective Physical Exam 2 Physical Exam: General- Not in distress Head- atraumatic Eyes- PERRL. ENT- oropharynx clear Neck- supple, no JVD. Lungs- clear to auscultation mild b/l rhonchi and mild expiratory wheezing Heart- regular rhythm;Tachycardia, no murmur, no gallop. Abdomen- normal bowel sounds, soft, nontender, no distension. Extremities- no pretibial edema, no erythema seen Neuro- alert, oriented x 3; PERRL,; no facial palsy; no dysarthria; b/l lower extremity weakness Skin- pressure ulcer on right hip 1.5cm x 1.5cm stage 3 Results & Data Results & Data Vital Signs (Past 12 Hours) Vital Signs Temp Pulse Pulse Resp BP Pulse Ox O2 Del Method 05/11/23 08:12 86 05/11/23 07:12 37.0 C 90 18 161/76 H 97 Room Air 05/11/23 07:06 90 18 94 Room Air 05/11/23 03:00 36.6 C 88 19 158/76 H 96 Room Air 05/11/23 00:00 93 H 05/10/23 22:59 36.8 C 88 16 166/64 H 94 Room Air Laboratory Results 05/11/23 05:32 05/11/23 05:32 Diagnostic Findings No new imaging PG Care Time/CCT Total # of Minutes Spent Total Time Spent with Patient: Total time spent is greater than 50% in coordination of care (as documented) at patient's floor/unit and/or counseling patient: Coding Level of Care Code 59767 SUB INP/OBS CARE 2/35MIN Diagnoses Right lower lobe pneumonia J18.9 Chronic pulmonary aspiration T17.908A Malnutrition E46
--- NOTE | 2023-05-11 09:33 | Hospitalist Progress Note ---
Date of Service May 11, 2023 Assessment & Plan (1) Severe sepsis: Plan: 67 yo m with hyperlipidemia, COPD, hypertension, peripheral vascular disease, dural regular venous fistula, CAD per epic but no cardiac disease as per and also per previous cardio notes, constipation, protein calorie monitoring, history of narcotic bowel syndrome, osteoarthritis, lumbar degenerative disc disease, cervical myelopathy, left cervical adenopathy, history of tobacco abuse comes because of not feeling well and hypoxia and found to be in severe sepsis mostly from pneumonia and also have ongoing right hip pressure ulcer. As per yesterday evening patient told her that he was not feeling well and felt like flu coming on. Around 3 AM he woke up and he was was short of breath and was rattling in the chest and diaphoretic and seemed confused and was brought to the hospital. His oxygen saturation were only in 70%. He was placed on nonrebreather in the ER. Had temp spike in the ER.Tachycardic with heart rates in the 140s. Blood pressure holding. Currently patient is alert and oriented. Denies any headache. Denies any chest pain. Has some dry cough. No runny nose. No sore throat. No nausea. No abdominal pain. Somewhat constipated, normal micturition. He has chronic back issues. states he is mostly in the bed not moving much. PT comes home. But does not ambulate much. He is mostly wheelchair-bound. He can transfer from the bed to the wheelchair. Because of his laying in the bed all the time he has pressure ulcers. His pressure ulcers in the sacral region healed up. But still has a ongoing pressure ulcer in the right hip.Patient is following with the wound care. As per no trouble swallowing. Severe sepsis Secondary to right lower lobe pneumonia (aspiration pna) Acute hypoxic resp. failure Also has ongoing right hip pressure ulcer Lactic acid 3.8, WBC 31 temperature 37.8. Heart heart rates in 140s. Procalcitonin 4.6 Received aggressive fluids Received IV cefepime in the ER Continued with IV Vanco and Zosyn and p.o. Doxy -> plan to switch to PO antibiotics IVF received on admission - stopped now repeat lactic acid 1.5 tachycardia has resolved and blood pressure is stable Will closely monitor the hemodynamics Follow cultures Respiratory bio fire negative UA - will repeat as nonspecific cultx Sputum cultx - no growth Blood cultx - ngtd wound cultx - posit. as outpt for yeast - pending now Telemetry for now Respiratory distress COPD exacerbation Pneumonia - Aspiration Requiring high oxygen supplementation ABGs are okay Antibiotics as above Nebs [id number] and as needed IV Solu-Medrol given in ER, now stopped Pulmonary consulted Close monitor Pt currently on RA Speech eval d/t concern for aspiration -> c/w aspiration Right hip pressure ulcer stage III Follow the cultures - outpt cultx posit. for missael and pt treated w/ topical antifungal Hip x-ray - no acute abnormality Wound care. Elevated troponin Mostly demand ischemia We will follow serial enzymes CKD stage III Presented with creatinine of 1.8 which seems to be around baseline as per epic Will follow the labs Hypomagnesia Will replace Follow labs Hypertension Will hold amlodipine for severe sepsis Restart when able Ambulate dysfunction Chronic back pain On pain meds Wheelchair-bound Can do transfers PT OT when stable Peripheral vascular disease On aspirin and statin GERD Protonix DVT prophylaxis Heparin subcu Disposition Telemetry Full code per discussion with the Admission and Anticipated Discharge Date Admission Date: May 08, 2023 Subjective Pt seen in follow up of sepsis, PNA, hypoxic resp. failure Pulmonary medicine also consulted - concern for aspiration, cont. abx for now Currently sitting up in bed in NAD, feeling better on RA now Denies any chest pain, shortness of breath, has productive cough Speech eval done - c/w aspiration Plan for rehab when medically stable Pt's present at the bedside and updated today. Review of Systems Review of Systems: All systems reviewed & are unremarkable except as noted in Subjective Physical Exam Physical Exam: General- thin M , + chronically ill appearing, on RA, in NAD Head- atraumatic Eyes- PERRL. ENT- oropharynx clear Neck- supple, no JVD. Lungs- + mild b/l rhonchi , no wheezing Heart - regular rhythm, no murmur, no gallop. Abdomen- normal bowel sounds, soft, nontender, no distension. Extremities- no pretibial edema, no erythema seen Neuro- alert, oriented x 3; PERRL,; no facial palsy; no dysarthria; b/l lower extremity weakness Skin- pressure ulcer on right hip ~ 1.5cm x 1.5cm Results & Data Results & Data Vital Signs (Past 12 Hours) Vital Signs Temp Pulse Pulse Resp BP Pulse Ox O2 Del Method 03/06/24 08:12 86 05/11/23 07:12 37.0 C 90 18 161/76 H 97 Room Air 05/11/23 07:06 90 18 94 Room Air 05/11/23 03:00 36.6 C 88 19 158/76 H 96 Room Air 05/11/23 00:00 93 H 05/10/23 22:59 36.8 C 88 16 166/64 H 94 Room Air Laboratory Results 05/11/23 05/10/23 Range/Units 05:32 12:03 WBC 15.49 H (4.8-10.8) K/ul RBC 3.91 L (4.70-6.10) M/uL Hgb 11.3 L (14.0-18.0) g/dl Hct 35.0 L (42.0-52.0) % MCV 89.5 (80.0-100.0) fL MCH 28.9 (25.0-34.0) pg MCHC 32.3 (32.0-36.0) g/dL RDW Std Deviation 51.2 H (36.4-46.3) fL RDW Coeff of [place] 15.7 H (11.5-14.5) % Plt Count 301 (130-400) K/uL MPV 10.5 (9.4-12.4) fL Sodium 138 (136-145) mmol/L Potassium 3.7 (3.5-5.1) mmol/L Chloride 107 (98-107) mmol/L Carbon Dioxide 22 (21-32) mmol/L Anion Gap 9 (3-11) BUN 19 (6-23) mg/dl Creatinine 1.47 H (0.6-1.4) mg/dl Est Cr Clr Drug Dosing 37.0 ml/min Est GFR ( Amer) 56.0 ml/min Est GFR (Non-Af Amer) 48.3 ml/min BUN/Creatinine Ratio 12.9 (10-20) Glucose 81 (70-99(Fasting)) mg/dl Calcium 8.7 (8.6-10.3) mg/dl Phosphorus 2.8 (2.5-4.9) mg/dl Magnesium 1.9 (1.7-2.4) mg/dl Random Vancomycin 12.5 10.9 (10-20) mcg/ml Medications Administered Current Inpatient Medications Acetaminophen (Acetaminophen 325 Mg Tab) 650 mg PO Q4H PRN PRN Reason: Pain or Fever Stop: 06/07/23 08:35 Amlodipine Besylate (Amlodipine Besylate 5 Mg Tab) 10 mg PO DAILY [facility] Stop: 06/07/23 08:59 Amoxicillin/Clavulanate Potassium (Amoxicillin/Clavulanate 875 Mg Tab) 1 tab PO BIDM [facility]; Protocol Stop: 05/18/23 16:59 Aspirin (Aspirin 81 Mg Ectab) 81 mg PO DAILY [facility] Stop: 06/07/23 08:59 Last Admin: 05/11/23 08:31 Dose: 81 mg Atorvastatin Calcium (Atorvastatin 20 Mg Tab) 20 mg PO DAILY [facility] Stop: 06/07/23 08:59 Last Admin: 05/11/23 08:31 Dose: 20 mg Budesonide (Budesonide 0.25 Mg/2 Ml Vial (Pulmicort)) 0.5 mg NEB BIDR [facility] Stop: 06/08/23 18:59 Last Admin: 05/11/23 07:06 Dose: Not Given Clotrimazole (Clotrimazole 1% Cr 15 Gm Tube) 1 appln EXT BID [facility] Stop: 06/08/23 14:29 Last Admin: 05/11/23 08:31 Dose: 1 appln Docusate Sodium (Docusate Sodium 100 Mg Cap) 100 mg PO BID [facility] Stop: 06/07/23 08:59 Last Admin: 05/11/23 08:32 Dose: Not Given Folic Acid (Folic Acid 1 Mg Tab) 1 mg PO DAILY [facility] Stop: 06/07/23 08:59 Last Admin: 05/11/23 08:31 Dose: 1 mg Formoterol Fumarate (Formoterol 20 Mcg/2 Ml Vial) 20 mcg NEB BIDR [facility] Stop: 06/07/23 11:29 Last Admin: 05/11/23 07:05 Dose: 20 mcg Gabapentin (Gabapentin 300 Mg Cap) 300 mg PO 0900,1400 [facility] Stop: 06/07/23 08:59 Last Admin: 05/11/23 08:32 Dose: 300 mg Gabapentin (Gabapentin 600 Mg Tab) 600 mg PO HS [facility] Stop: 06/07/23 20:59 Last Admin: 05/10/23 20:25 Dose: 600 mg Guaifenesin (Guaifenesin 600 Mg Tabcr) 1,200 mg PO Q12 [facility] Stop: 06/08/23 20:59 Last Admin: 05/11/23 08:31 Dose: 1,200 mg Heparin Sodium (Porcine) (Heparin Sod 5,000 Unit/0.5 Ml Vial) 5,000 units SQ Q8 [facility] Stop: 06/07/23 13:59 Last Admin: 05/11/23 06:49 Dose: 5,000 units Hydromorphone HCl (Hydromorphone Inj 0.5 Mg/0.5 Ml Syr) 0.25 mg IV Q6H PRN PRN Reason: Mod-Sev Pain (Scale 4-10) Stop: 05/23/23 03:55 Last Admin: 05/11/23 01:58 Dose: 0.25 mg Doxycycline Hyclate 100 mg/ (Dextrose) 100 mls @ 50 mls/hr IV Q12H [facility] Stop: 05/15/23 19:59 Last Admin: 05/11/23 08:33 Dose: 50 mls/hr Ipratropium [place] (Ipratropium [place] Neb Soln 0.02% 0.5mg/2.5ml Vial) 0.5 mg INH QIDR [facility] Stop: 06/07/23 10:59 Last Admin: 05/11/23 07:06 Dose: 0.5 mg Levalbuterol HCl (Levalbuterol 1.25 Mg/3 Ml Neb) 1.25 mg NEB QIDR [facility] Stop: 06/07/23 10:59 Last Admin: 05/11/23 07:06 Dose: 1.25 mg Multivitamins (Multivitamin Tab) 1 tab PO DAILY [facility] Stop: 06/07/23 08:59 Last Admin: 05/11/23 08:31 Dose: 1 tab Nitroglycerin (Nitroglycerin Sl 0.4 Mg/Tab Tab) 0.4 mg SL Q5M PRN PRN Reason: Chest Pain Stop: 06/07/23 08:35 Oxycodone HCl (Oxycodone Hcl Ir 5 Mg Tab (Immediate Release)) 5 mg PO Q6H PRN PRN Reason: Pain Stop: 05/22/23 08:35 Last Admin: 05/11/23 09:26 Dose: 5 mg Pantoprazole Sodium (Pantoprazole 40 Mg Tab) 40 mg PO BID [facility] Stop: 06/07/23 08:59 Last Admin: 05/11/23 08:31 Dose: 40 mg Potassium Chloride (Potassium Chloride 10 Meq Tabcr) 10 meq PO DAILY [facility] Stop: 06/07/23 08:59 Last Admin: 05/11/23 08:34 Dose: 10 meq Sodium Chloride (Sodium Chlor 7% 4 Ml Neb) 4 ml NEB BIDR [facility] Stop: 06/08/23 18:59 Last Admin: 05/11/23 07:06 Dose: 4 ml Thiamine HCl (Thiamine Hcl 100 Mg Tab) 100 mg PO DAILY [facility] Stop: 06/07/23 08:59 Last Admin: 05/11/23 08:31 Dose: 100 mg Vitamin B Complex/Folic Acid (Nephrocaps) 1 cap PO DAILY [facility] Stop: 06/07/23 08:59 Last Admin: 05/11/23 08:32 Dose: 1 cap
[2023-05-11] MEDS: oxyCODONE HCL IR 5 MG TAB (IMMEDIATE RELEASE) PO PRN (16:37)
[2023-05-11] MEDS ORDERED: AMOXICILLIN/CLAVULANATE 875 MG TAB PO SCH (17:00)
[2023-05-11] MEDS: metroNIDAZOLE 500 MG TAB PO SCH (17:19)
[2023-05-11] MEDS: levoFLOXacin 750 MG TAB PO SCH (17:19)
[2023-05-11] MEDS: DICLOFENAC SOD 1% GEL 100 GM TUBE EXT SCH (19:48)
[2023-05-11 22:20] LABS: Appearance Urine Clear (Clear); Bacteria Urine Automated Negative (Negative); Bilirubin Urine Negative (Negative); Blood Urine Negative (Negative); Cast Urine Automated 0 /lpf (0-5); Color Urine Yellow; Epithelial Cell Urine Auto 20-30 /lpf (0-5); Glucose Urine UA Negative (Negative); Ketones Urine Negative (Negative); Leukocyte Esterase Urine Trace (Negative); Nitrite Urine Negative (Negative); Protein Urine 2+ (Negative); Specific Gravity Urine 1.011 (1.000-1.030); Urobilinogen Urine Negative (Negative); pH Urine 6.5 (4.5-7.5)
--- NOTE | 2023-05-12 07:20 | XRay Report ---
XR ankle RT min 3V routine CLINICAL HISTORY: pain/swelling TECHNIQUE: 3 views of the right ankle were obtained. Comparison: None available at the time of this dictation. FINDINGS: No fractures are present. Mild degenerative changes are seen with a right Achilles enthesophyte. The ankle mortise is intact. No soft tissue abnormality is seen. IMPRESSION: Degenerative changes without evidence of acute fracture. ACT 112: Negative or not required by law. Electronically signed by: Lucian Perez M.D. 05/12/2023 7:19 AM
[2023-05-12 07:51] LABS: Hematocrit (blood only) 38.6 % (42.0-52.0); Hemoglobin 12.8 g/dl (14.0-18.0); Mean Corpuscular Hemoglobin 29.4 pg (25.0-34.0); Mean Corpuscular Hgb Conc 33.2 g/dL (32.0-36.0); Mean Corpuscular Volume 88.7 fL (80.0-100.0); Platelet Count 312 K/uL (130-400); RDW Coefficient of Variation 15.3 % (11.5-14.5); RDW Standard Deviation 49.7 fL (36.4-46.3); Red Blood Count 4.35 M/uL (4.70-6.10); White Blood Count 13.51 K/ul (4.8-10.8)
[2023-05-12 08:17] LABS: BUN Creatinine Ratio 14.6 (10-20); Calcium 9.2 mg/dl (8.6-10.3); Creatinine Clr Calc Pharmacy 35.4 ml/min; Est GFR (African American) 54.2 ml/min; Est GFR (Non-African American) 46.8 ml/min; Magnesium 1.8 mg/dl (1.7-2.4); Phosphorus 3.2 mg/dl (2.5-4.9); Potassium 3.9 mmol/L (3.5-5.1)
--- NOTE | 2023-05-12 17:21 | Hospitalist Progress Note ---
Date of Service May 12, 2023 Assessment & Plan (1) Severe sepsis: Plan: 67 yo m with hyperlipidemia, COPD, hypertension, peripheral vascular disease, dural regular venous fistula, CAD per epic but no cardiac disease as per and also per previous cardio notes, constipation, protein calorie monitoring, history of narcotic bowel syndrome, osteoarthritis, lumbar degenerative disc disease, cervical myelopathy, left cervical adenopathy, history of tobacco abuse comes because of not feeling well and hypoxia and found to be in severe sepsis mostly from pneumonia and also have ongoing right hip pressure ulcer. As per yesterday evening patient told her that he was not feeling well and felt like flu coming on. Around 3 AM he woke up and he was was short of breath and was rattling in the chest and diaphoretic and seemed confused and was brought to the hospital. His oxygen saturation were only in 70%. He was placed on nonrebreather in the ER. Had temp spike in the ER.Tachycardic with heart rates in the 140s. Blood pressure holding. Currently patient is alert and oriented. Denies any headache. Denies any chest pain. Has some dry cough. No runny nose. No sore throat. No nausea. No abdominal pain. Somewhat constipated, normal micturition. He has chronic back issues. states he is mostly in the bed not moving much. PT comes home. But does not ambulate much. He is mostly wheelchair-bound. He can transfer from the bed to the wheelchair. Because of his laying in the bed all the time he has pressure ulcers. His pressure ulcers in the sacral region healed up. But still has a ongoing pressure ulcer in the right hip.Patient is following with the wound care. As per no trouble swallowing. Severe sepsis Secondary to right lower lobe pneumonia (aspiration pna) Acute hypoxic resp. failure Also has ongoing right hip pressure ulcer Lactic acid 3.8, WBC 31 temperature 37.8. Heart heart rates in 140s. Procalcitonin 4.6 Received aggressive fluids Received IV cefepime in the ER Continued with IV Vanco and Zosyn and p.o. Doxy -> plan to switch to PO antibiotics IVF received on admission - stopped now repeat lactic acid 1.5 tachycardia has resolved and blood pressure is stable Will closely monitor the hemodynamics Follow cultures Respiratory bio fire negative UA - will repeat as nonspecific cultx, repeat UA negative Sputum cultx - no growth Blood cultx - ngtd wound cultx - posit. as outpt for yeast - currently posit. for missael and proteus Telemetry for now Respiratory distress COPD exacerbation Pneumonia - Aspiration Requiring high oxygen supplementation ABGs are okay Antibiotics as above Nebs [id number] and as needed IV Solu-Medrol given in ER, now stopped Pulmonary consulted Close monitor Pt currently on RA Speech eval d/t concern for aspiration -> c/w aspiration Right hip pressure ulcer stage III Follow the cultures - outpt cultx posit. for missael and pt treated w/ topical antifungal Hip x-ray - no acute abnormality Wound care. Elevated troponin Mostly demand ischemia followed serial enzymes CKD stage III Presented with creatinine of 1.8 which seems to be around baseline as per epic follow the labs Hypomagnesemia replace and monitor Hypertension Held amlodipine for severe sepsis initially Resumed Ambulate dysfunction Chronic back pain On pain meds Wheelchair-bound Can do transfers PT OT when stable Peripheral vascular disease On aspirin and statin GERD Protonix DVT prophylaxis Heparin subcu Disposition Telemetry Full code per discussion with the Admission and Anticipated Discharge Date Admission Date: May 08, 2023 Subjective Pt seen in follow up of sepsis, PNA, hypoxic resp. failure Pulmonary medicine also consulted - concern for aspiration, cont. abx for now Currently sitting up in bed in NAD, feeling better on RA now Denies any chest pain, shortness of breath, has productive cough Speech eval done - c/w aspiration Plan for rehab on DC - [facility] denied, CM involved Review of Systems Review of Systems: All systems reviewed & are unremarkable except as noted in Subjective Physical Exam Physical Exam: General- thin M , + chronically ill appearing, on RA, in NAD Head- atraumatic Eyes- PERRL. ENT- oropharynx clear Neck- supple, no JVD. Lungs- + minimal b/l rhonchi , no wheezing Heart - regular rhythm, no murmur, no gallop. Abdomen- normal bowel sounds, soft, nontender, no distension. Extremities- no pretibial edema, no erythema seen Neuro- alert, oriented x 3; PERRL,; no facial palsy; no dysarthria; b/l lower extremity weakness Skin- pressure ulcer on right hip ~ 1.5cm x 1.5cm Results & Data Results & Data Vital Signs (Past 12 Hours) Vital Signs Temp Pulse Resp BP Pulse Ox O2 Del Method FiO2 05/12/23 15:30 36.8 C 99 H 18 170/71 H 96 Room Air 05/12/23 15:19 95 H 15 97 Room Air 21 05/12/23 11:36 36.2 C L 99 H 18 171/73 H 96 Room Air 05/12/23 11:01 85 18 96 Room Air 05/12/23 11:00 111 H 05/12/23 08:00 Room Air 05/12/23 07:14 36.5 C 86 18 176/74 H 97 Room Air 05/12/23 07:10 87 18 97 Room Air Laboratory Results 05/12/23 05/11/23 Range/Units 07:03 21:50 WBC 13.51 H (4.8-10.8) K/ul RBC 4.35 L (4.70-6.10) M/uL Hgb 12.8 L (14.0-18.0) g/dl Hct 38.6 L (42.0-52.0) % MCV 88.7 (80.0-100.0) fL MCH 29.4 (25.0-34.0) pg MCHC 33.2 (32.0-36.0) g/dL RDW Std Deviation 49.7 H (36.4-46.3) fL RDW Coeff of [place] 15.3 H (11.5-14.5) % Plt Count 312 (130-400) K/uL MPV 11.0 (9.4-12.4) fL Sodium 141 (136-145) mmol/L Potassium 3.9 (3.5-5.1) mmol/L Chloride 108 H (98-107) mmol/L Carbon Dioxide 24 (21-32) mmol/L Anion Gap 9 (3-11) BUN 22 (6-23) mg/dl Creatinine 1.51 H (0.6-1.4) mg/dl Est Cr Clr Drug Dosing 35.4 ml/min Est GFR ( Amer) 54.2 ml/min Est GFR (Non-Af Amer) 46.8 ml/min BUN/Creatinine Ratio 14.6 (10-20) Glucose 76 (70-99(Fasting)) mg/dl Calcium 9.2 (8.6-10.3) mg/dl Phosphorus 3.2 (2.5-4.9) mg/dl Magnesium 1.8 (1.7-2.4) mg/dl Urine Color Yellow Urine Appearance Clear (Clear) Urine pH 6.5 (4.5-7.5) Ur Specific [place] 1.011 (1.000-1.030) Urine Protein 2+ H (Negative) Urine Glucose (UA) Negative (Negative) Urine Ketones Negative (Negative) Urine Blood Negative (Negative) Urine Nitrite Negative (Negative) Urine Bilirubin Negative (Negative) Urine Urobilinogen Negative (Negative) Ur Leukocyte Esterase Trace H (Negative) Urine WBC (Auto) 5-10 H (0-5) /hpf Urine RBC (Auto) 5-10 H (0-4) /hpf U Hyaline Cast (Auto) 0 (0-5) /lpf U Epithel Cells (Auto) 20-30 H (0-5) /lpf Urine Bacteria (Auto) Negative (Negative) Medications Administered Current Inpatient Medications Acetaminophen (Acetaminophen 325 Mg Tab) 650 mg PO Q4H PRN PRN Reason: Pain or Fever Stop: 06/07/23 08:35 Amlodipine Besylate (Amlodipine Besylate 5 Mg Tab) 10 mg PO DAILY [facility] Stop: 06/07/23 08:59 Aspirin (Aspirin 81 Mg Ectab) 81 mg PO DAILY [facility] Stop: 06/07/23 08:59 Last Admin: 05/12/23 08:03 Dose: 81 mg Atorvastatin Calcium (Atorvastatin 20 Mg Tab) 20 mg PO DAILY [facility] Stop: 06/07/23 08:59 Last Admin: 05/12/23 08:02 Dose: 20 mg Budesonide (Budesonide 0.25 Mg/2 Ml Vial (Pulmicort)) 0.5 mg NEB BIDR [facility] Stop: 06/08/23 18:59 Last Admin: 05/12/23 07:09 Dose: 0.5 mg Clotrimazole (Clotrimazole 1% Cr 15 Gm Tube) 1 appln EXT BID [facility] Stop: 06/08/23 14:29 Last Admin: 05/12/23 08:03 Dose: 1 appln Diclofenac Sodium (Diclofenac Sod 1% Gel 100 Gm Tube) 2 gm EXT BID [facility]; Protocol Stop: 06/10/23 20:59 Last Admin: 05/12/23 08:03 Dose: 2 gm Docusate Sodium (Docusate Sodium 100 Mg Cap) 100 mg PO BID [facility] Stop: 06/07/23 08:59 Last Admin: 05/12/23 08:03 Dose: Not Given Folic Acid (Folic Acid 1 Mg Tab) 1 mg PO DAILY [facility] Stop: 06/07/23 08:59 Last Admin: 05/12/23 08:03 Dose: 1 mg Formoterol Fumarate (Formoterol 20 Mcg/2 Ml Vial) 20 mcg NEB BIDR [facility] Stop: 06/07/23 11:29 Last Admin: 05/12/23 07:09 Dose: 20 mcg Gabapentin (Gabapentin 300 Mg Cap) 300 mg PO 0900,1400 [facility] Stop: 06/07/23 08:59 Last Admin: 05/12/23 13:13 Dose: 300 mg Gabapentin (Gabapentin 600 Mg Tab) 600 mg PO HS [facility] Stop: 06/07/23 20:59 Last Admin: 05/11/23 20:59 Dose: 600 mg Guaifenesin (Guaifenesin 600 Mg Tabcr) 1,200 mg PO Q12 [facility] Stop: 06/08/23 20:59 Last Admin: 05/12/23 08:02 Dose: 1,200 mg Heparin Sodium (Porcine) (Heparin Sod 5,000 Unit/0.5 Ml Vial) 5,000 units SQ Q8 [facility] Stop: 06/07/23 13:59 Last Admin: 05/12/23 13:13 Dose: 5,000 units Hydromorphone HCl (Hydromorphone Inj 0.5 Mg/0.5 Ml Syr) 0.25 mg IV Q6H PRN PRN Reason: Mod-Sev Pain (Scale 4-10) Stop: 05/23/23 03:55 Last Admin: 05/12/23 12:26 Dose: 0.25 mg Ipratropium [place] (Ipratropium [place] Neb Soln 0.02% 0.5mg/2.5ml Vial) 0.5 mg INH QIDR [facility] Stop: 06/07/23 10:59 Last Admin: 05/12/23 15:18 Dose: 0.5 mg Levalbuterol HCl (Levalbuterol 1.25 Mg/3 Ml Neb) 1.25 mg NEB QIDR [facility] Stop: 06/07/23 10:59 Last Admin: 05/12/23 15:18 Dose: 1.25 mg Levofloxacin (Levofloxacin 750 Mg Tab) 750 mg PO Q48H [facility]; Protocol Stop: 05/18/23 15:59 Last Admin: 05/11/23 17:19 Dose: 750 mg Metronidazole (Metronidazole 500 Mg Tab) 500 mg PO Q12H [facility] Stop: 05/18/23 15:59 Last Admin: 05/12/23 16:22 Dose: 500 mg Multivitamins (Multivitamin Tab) 1 tab PO DAILY [facility] Stop: 06/07/23 08:59 Last Admin: 05/12/23 08:03 Dose: 1 tab Nitroglycerin (Nitroglycerin Sl 0.4 Mg/Tab Tab) 0.4 mg SL Q5M PRN PRN Reason: Chest Pain Stop: 06/07/23 08:35 Oxycodone HCl (Oxycodone Hcl Ir 5 Mg Tab (Immediate Release)) 5 mg PO Q4H PRN PRN Reason: Pain Stop: 05/22/23 08:35 Last Admin: 05/11/23 16:37 Dose: 5 mg Pantoprazole Sodium (Pantoprazole 40 Mg Tab) 40 mg PO BID [facility] Stop: 06/07/23 08:59 Last Admin: 05/12/23 08:03 Dose: 40 mg Potassium Chloride (Potassium Chloride 10 Meq Tabcr) 10 meq PO DAILY [facility] Stop: 06/07/23 08:59 Last Admin: 05/12/23 08:06 Dose: 10 meq Sodium Chloride (Sodium Chlor 7% 4 Ml Neb) 4 ml NEB BIDR [facility] Stop: 06/08/23 18:59 Last Admin: 05/12/23 07:09 Dose: 4 ml Thiamine HCl (Thiamine Hcl 100 Mg Tab) 100 mg PO DAILY [facility] Stop: 06/07/23 08:59 Last Admin: 05/12/23 08:03 Dose: 100 mg Vitamin B Complex/Folic Acid (Nephrocaps) 1 cap PO DAILY [facility] Stop: 06/07/23 08:59 Last Admin: 05/12/23 08:02 Dose: 1 cap
[2023-05-12] MEDS: cloNIDine HCL 0.1 MG TAB PO ONE (21:28)
[2023-05-12] MEDS: MAGNESIUM SULFATE / D5W 1 GM/100 ML BAG IV ONE (21:29)
[2023-05-12] MEDS: HYDROmorphone INJ 0.5 MG/0.5 ML SYR IV PRN (23:36)
[2023-05-13 06:20] LABS: Hematocrit (blood only) 37.7 % (42.0-52.0); Hemoglobin 12.1 g/dl (14.0-18.0); Mean Corpuscular Hemoglobin 28.7 pg (25.0-34.0); Mean Corpuscular Hgb Conc 32.1 g/dL (32.0-36.0); Mean Corpuscular Volume 89.5 fL (80.0-100.0); Mean Platelet Volume 10.8 fL (9.4-12.4); Platelet Count 358 K/uL (130-400); RDW Coefficient of Variation 15.4 % (11.5-14.5); RDW Standard Deviation 50.2 fL (36.4-46.3); Red Blood Count 4.21 M/uL (4.70-6.10); White Blood Count 17.18 K/ul (4.8-10.8)
[2023-05-13 06:33] LABS: BUN Creatinine Ratio 15.8 (10-20); Calcium 8.9 mg/dl (8.6-10.3); Creatinine Clr Calc Pharmacy 32.2 ml/min; Est GFR (African American) 51.3 ml/min; Est GFR (Non-African American) 44.3 ml/min; Phosphorus 3.8 mg/dl (2.5-4.9); Potassium 4.2 mmol/L (3.5-5.1)
[2023-05-13] MEDS: amLODIPine BESYLATE 5 MG TAB PO SCH (08:37)
--- NOTE | 2023-05-13 13:55 | Hospitalist Progress Note ---
Date of Service May 13, 2023 Assessment & Plan (1) Severe sepsis: Plan 67 yo m with hyperlipidemia, COPD, hypertension, peripheral vascular disease, dural regular venous fistula, CAD per epic but no cardiac disease as per and also per previous cardio notes, constipation, protein calorie monitoring, history of narcotic bowel syndrome, osteoarthritis, lumbar degenerative disc disease, cervical myelopathy, left cervical adenopathy, history of tobacco abuse who was admitted with hypoxia, severe sepsis from pneumonia and ongoing right hip pressure ulcer. states he is mostly in the bed not moving much. He does not ambulate much. He is mostly wheelchair-bound. He can transfer from the bed to the wheelchair. Because of his laying in the bed all the time he has pressure ulcers. His pressure ulcers in the sacral region have healed. But he still has an ongoing pressure ulcer in the right hip. Patient is following with the wound care. As per no trouble swallowing. Severe sepsis Secondary to right lower lobe pneumonia (aspiration pna) Acute hypoxic resp. failure On admission Lactic acid 3.8, WBC 31 temperature 37.8. Heart heart rates in 140s. Procalcitonin 4.6 Received aggressive fluids Received IV cefepime in the ER Respiratory bio fire negative UA negative Sputum cultx - no growth Blood cultx - ngtd wound cultx - posit. as outpt for yeast - currently posit. for missael and proteus Treated with IV Vanco and Zosyn and p.o. Doxy -> switched to PO antibiotics with Levaquin and flagyl Continue with po abx for 3 more days. Pt currently on RA and improved. Speech eval d/t concern for aspiration -> c/w aspiration. Met with speech. Right hip pressure ulcer stage III Cx + for missael and pt treated w/ topical antifungal Also + for proteus sensitive to Levaquin above Hip x-ray - no acute abnormality Wound care Elevated troponin hs-trop was elevated and downtrended EKG with sinus tachycardia EF 55-60% Borderline LVH and grade I diastolic heart failure Mostly demand ischemia, doubt ACS CKD stage III Presented with creatinine of 1.8 which seems to be around baseline as per epic Continue to monitor Hypomagnesemia replace and monitor Hypertension Held amlodipine for severe sepsis initially Resumed, continue Persistently elevated Consider starting on metoprolol 12.5mg daily Ambulatory dysfunction Chronic back pain On pain meds Wheelchair-bound Can do transfers PT OT when stable recommending rehab Peripheral vascular disease On aspirin and statin, continue GERD Protonix, continue Diet: HH/pureed/easy to chew DVT prophylaxis: Heparin subcu Disposition: Currently awaiting placement at rehab, appeals in place Full code per discussion with the Admission and Anticipated Discharge Date Admission Date: May 08, 2023 Subjective Pt was seen sitting in bed. On RA, denies acute concerns. Review of Systems Review of Systems: All systems reviewed & are unremarkable except as noted in Subjective Physical Exam Physical Exam: General: Alert, oriented. No acute distress. thin Skin: No noted rashes or bruises Psych: Appropriate mood and affect Neuro: weakness HEENT: NC/AT Chest: Nontender to palpation. CV: RRR, Normal s1, s2. No murmurs appreciated Resp: Breath sounds clear bilaterally, no increased effort of breathing. Abdomen: Soft, nontender, nondistended. No guarding. No organomegaly appreciated. Extremities: No edema in lower extremities bilaterally. Noted skin atrophy in lower extremities Results & Data Results & Data Vital Signs (Past 12 Hours) Vital Signs Temp Pulse Pulse Resp BP Pulse Ox O2 Del Method 05/13/23 11:03 75 15 94 Room Air 05/13/23 10:42 36.6 C 83 18 146/72 H 97 Room Air 05/13/23 09:44 Room Air 05/13/23 07:22 36.4 C L 91 H 18 146/76 H 99 Room Air 05/13/23 07:18 82 16 96 Room Air 05/13/23 06:00 81 05/13/23 03:03 36.4 C L 83 18 133/65 96 Room Air FiO2 05/13/23 11:03 21 05/13/23 10:42 05/13/23 09:44 05/13/23 07:22 05/13/23 07:18 05/13/23 06:00 05/13/23 03:03
[2023-05-13] MEDS ORDERED: IPRATROPIUM BROMIDE NEB SOLN 0.02% 0.5MG/2.5ML VIAL INH PRN (14:32)
[2023-05-13] MEDS ORDERED: LEVALBUTEROL 1.25 MG/3 ML NEB NEB PRN (14:32)
[2023-05-13] MEDS: LIDOCAINE 5% 1 PATCH TD SCH (22:21)
[2023-05-14 08:39] LABS: Hematocrit (blood only) 40.6 % (42.0-52.0); Hemoglobin 13.2 g/dl (14.0-18.0); Mean Corpuscular Hemoglobin 28.7 pg (25.0-34.0); Mean Corpuscular Hgb Conc 32.5 g/dL (32.0-36.0); Mean Corpuscular Volume 88.3 fL (80.0-100.0); Platelet Count 419 K/uL (130-400); RDW Coefficient of Variation 15.6 % (11.5-14.5); White Blood Count 16.41 K/ul (4.8-10.8)
[2023-05-14 08:56] LABS: Albumin Globulin Ratio 1.2 (0.9-2); Albumin Level 3.5 gm/dl (3.4-5.0); BUN Creatinine Ratio 18.1 (10-20); Bilirubin,Total 0.4 mg/dl (0.2-1.0); Calcium 9.3 mg/dl (8.6-10.3); Creatinine Clr Calc Pharmacy 30.4 ml/min; Est GFR (African American) 46.6 ml/min; Est GFR (Non-African American) 40.2 ml/min; Magnesium 1.9 mg/dl (1.7-2.4); Phosphorus 3.9 mg/dl (2.5-4.9); Potassium 4.4 mmol/L (3.5-5.1); Total Protein 6.5 gm/dl (6.0-8.3)
--- NOTE | 2023-05-14 10:44 | Hospitalist Progress Note ---
Date of Service May 14, 2023 Assessment & Plan (1) Severe sepsis: Plan 67 yo m with hyperlipidemia, COPD, hypertension, peripheral vascular disease, dural regular venous fistula, CAD per epic but no cardiac disease as per and also per previous cardio notes, constipation, protein calorie monitoring, history of narcotic bowel syndrome, osteoarthritis, lumbar degenerative disc disease, cervical myelopathy, left cervical adenopathy, history of tobacco abuse who was admitted with hypoxia, severe sepsis from pneumonia and ongoing right hip pressure ulcer. states he is mostly in the bed not moving much. He does not ambulate much. He is mostly wheelchair-bound. He can transfer from the bed to the wheelchair. Because of his laying in the bed all the time he has pressure ulcers. His pressure ulcers in the sacral region have healed. But he still has an ongoing pressure ulcer in the right hip. Patient is following with the wound care. As per no trouble swallowing. Pt is currently stable for discharge. He was previously treated for the following: Severe sepsis Secondary to right lower lobe pneumonia (aspiration pna) Acute hypoxic resp. failure On admission Lactic acid 3.8, WBC 31 temperature 37.8. Heart heart rates in 140s. Procalcitonin 4.6 Received aggressive fluids Received IV cefepime in the ER Respiratory bio fire negative UA negative Sputum cultx - no growth Blood cultx - ngtd wound cultx - posit. as outpt for yeast - currently posit. for missael and proteus Treated with IV Vanco and Zosyn and p.o. Doxy -> switched to PO antibiotics with Levaquin and flagyl Continue with po abx for 2 more days. Pt currently on RA and improved. Speech eval d/t concern for aspiration -> c/w aspiration. Met with speech. Right hip pressure ulcer stage III Cx + for missael and pt treated w/ topical antifungal Also + for proteus sensitive to Levaquin above Hip x-ray - no acute abnormality Wound care Elevated troponin hs-trop was elevated and downtrended EKG with sinus tachycardia EF 55-60% Borderline LVH and grade I diastolic heart failure Mostly demand ischemia, doubt ACS CKD stage III Presented with creatinine of 1.8 which seems to be around baseline as per epic Cr has been as low as 1.5, 1 bag of NSS today Continue to monitor Hypomagnesemia replace and monitor Hypertension Held amlodipine for severe sepsis initially Resumed, continue Persistently elevated Started on metoprolol 12.5mg daily Ambulatory dysfunction Chronic back pain On pain meds Wheelchair-bound Can do transfers PT OT when stable recommending rehab Peripheral vascular disease On aspirin and statin, continue GERD Protonix, continue Diet: HH/pureed/easy to chew DVT prophylaxis: Heparin subcu Disposition: Currently awaiting placement at rehab, appeals in place Full code per discussion with the called and updated at 4:38pm on 05/14/23. Admission and Anticipated Discharge Date Admission Date: May 08, 2023 Subjective Pt was seen sitting in bed. On RA, denies acute concerns. Review of Systems Review of Systems: All systems reviewed & are unremarkable except as noted in Subjective Physical Exam Physical Exam: General: Alert, oriented. No acute distress. thin Skin: No noted rashes or bruises Psych: Appropriate mood and affect Neuro: weakness HEENT: NC/AT Chest: Nontender to palpation. CV: RRR, Normal s1, s2. No murmurs appreciated Resp: Breath sounds clear bilaterally, no increased effort of breathing. Abdomen: Soft, nontender, nondistended. No guarding. No organomegaly appreciated. Extremities: No edema in lower extremities bilaterally. Noted skin atrophy in lower extremities Results & Data Results & Data Vital Signs (Past 12 Hours) Vital Signs Temp Pulse Pulse Resp BP Pulse Ox O2 Del Method 05/14/23 08:12 36.8 C 104 H 18 132/75 95 Room Air 05/14/23 07:57 Room Air 05/14/23 07:34 90 05/14/23 07:11 97 H 14 97 Room Air 05/14/23 04:15 36.2 C L 93 H 18 148/82 H 95 Room Air 05/13/23 23:26 36.7 C 101 H 18 136/77 95 Room Air
[2023-05-14] MEDS: HYDROmorphone HCL 2 MG TAB PO PRN (13:06)
[2023-05-14] MEDS: SODIUM CHLORIDE 0.9% 1,000 ML IV SCH (16:46)
[2023-05-14] MEDS: METOPROLOL SUCC 25MG EXT REL TAB PO SCH (17:03)
[2023-05-15 06:21] LABS: Hematocrit (blood only) 40.5 % (42.0-52.0); Hemoglobin 13.1 g/dl (14.0-18.0); Mean Corpuscular Hgb Conc 32.3 g/dL (32.0-36.0); Mean Corpuscular Volume 89.6 fL (80.0-100.0); Mean Platelet Volume 10.7 fL (9.4-12.4); Platelet Count 474 K/uL (130-400); RDW Coefficient of Variation 15.6 % (11.5-14.5); RDW Standard Deviation 50.4 fL (36.4-46.3); Red Blood Count 4.52 M/uL (4.70-6.10); White Blood Count 20.39 K/ul (4.8-10.8)
[2023-05-15 06:27] LABS: BUN Creatinine Ratio 24.5 (10-20); Calcium 9.1 mg/dl (8.6-10.3); Creatinine Clr Calc Pharmacy 33.1 ml/min; Est GFR (African American) 50.9 ml/min; Magnesium 1.7 mg/dl (1.7-2.4); Potassium 4.4 mmol/L (3.5-5.1)
[2023-05-15] MEDS: BUDESONIDE 0.5 MG/2 ML VIAL (PULMICORT) NEB SCH (07:30)
[2023-05-15] MEDS: metroNIDAZOLE 500 MG/100 ML BAG IV SCH (11:42)
--- NOTE | 2023-05-15 14:46 | Hospitalist Progress Note ---
Date of Service May 15, 2023 Assessment & Plan (1) Severe sepsis: Plan 67 yo m with hyperlipidemia, COPD, hypertension, peripheral vascular disease, dural regular venous fistula, CAD per epic but no cardiac disease as per and also per previous cardio notes, constipation, protein calorie monitoring, history of narcotic bowel syndrome, osteoarthritis, lumbar degenerative disc disease, cervical myelopathy, left cervical adenopathy, history of tobacco abuse who was admitted with hypoxia, severe sepsis from pneumonia and ongoing right hip pressure ulcer. states he is mostly in the bed not moving much. He does not ambulate much. He is mostly wheelchair-bound. He can transfer from the bed to the wheelchair. Because of his laying in the bed all the time he has pressure ulcers. His pressure ulcers in the sacral region have healed. But he still has an ongoing pressure ulcer in the right hip. Patient is following with the wound care. As per no trouble swallowing. Pt is currently stable for discharge. He was previously treated for the following: Severe sepsis Secondary to right lower lobe pneumonia (aspiration pna) Acute hypoxic resp. failure On admission Lactic acid 3.8, WBC 31 temperature 37.8. Heart heart rates in 140s. Procalcitonin 4.6 Received aggressive fluids Received IV cefepime in the ER Respiratory bio fire negative UA negative Sputum cultx - no growth Blood cultx - ngtd wound cultx - posit. as outpt for yeast - currently posit. for missael and proteus Treated with IV Vanco and Zosyn and p.o. Doxy -> Currently on IV Flagyl and Cefepime Pt currently on RA and improved. Speech eval d/t concern for aspiration -> c/w aspiration. Met with speech. Right hip pressure ulcer stage III Cx + for missael and pt treated w/ topical antifungal Also + for proteus sensitive to cefepime/Levaquin above Hip x-ray - no acute abnormality Hip MRI ordered on 05/14- no evidence of osteomyelitis Wound care Currently on IV Flagyl and Cefepime as above Elevated troponin hs-trop was elevated and downtrended EKG with sinus tachycardia EF 55-60% Borderline LVH and grade I diastolic heart failure Mostly demand ischemia, doubt ACS CKD stage III Presented with creatinine of 1.8 which seems to be around baseline as per epic Cr has been as low as 1.5, 1 bag of NSS today Continue to monitor Hypomagnesemia replace and monitor Hypertension Held amlodipine for severe sepsis initially Resumed, continue Persistently elevated Started on metoprolol 12.5mg daily Ambulatory dysfunction Chronic back pain On pain meds Wheelchair-bound Can do transfers PT OT when stable recommending rehab Peripheral vascular disease On aspirin and statin, continue GERD Protonix, continue Diet: HH/pureed/easy to chew DVT prophylaxis: Heparin subcu Disposition: Currently awaiting placement at rehab, appeals in place Full code per discussion with the called and updated at 4:38pm on 05/14/23. Admission and Anticipated Discharge Date Admission Date: May 08, 2023 Subjective Pt seen in the AM. Discussion of increasing leukocytosis and need for hip MRI to rule out osteomyelitis. Review of Systems Review of Systems: All systems reviewed & are unremarkable except as noted in Subjective Physical Exam Physical Exam: General: Alert, oriented. No acute distress. thin Skin: No noted rashes or bruises Psych: Appropriate mood and affect Neuro: weakness HEENT: NC/AT Chest: Nontender to palpation. CV: RRR, Normal s1, s2. No murmurs appreciated Resp: Breath sounds clear bilaterally, no increased effort of breathing. Abdomen: Soft, nontender, nondistended. No guarding. No organomegaly appreciated. Extremities: No edema in lower extremities bilaterally. Noted skin atrophy in lower extremities Results & Data Results & Data Vital Signs (Past 12 Hours) Vital Signs Temp Pulse Pulse Resp BP Pulse Ox O2 Del Method 05/15/23 13:14 89 16 142/69 H 95 Room Air 05/15/23 11:56 36.8 C 96 H 18 146/73 H 86 L Room Air 05/15/23 08:01 36.6 C 86 18 150/73 H 95 Room Air 05/15/23 07:29 87 16 97 Room Air 05/15/23 07:06 86 05/15/23 03:31 36.6 C 83 18 142/79 H 96 Room Air
[2023-05-15] MEDS: HYDROmorphone INJ 0.5 MG/0.5 ML SYR IV STA (15:18)
[2023-05-15] MEDS: GADOBUTROL 65ML VIAL IV ONE (16:22)
[2023-05-15] MEDS: CEFEPIME 2,000 MG in SYRINGE 0 ML IV SCH (17:23)
--- NOTE | 2023-05-15 19:33 | Magnetic Resonance Report ---
MR hip RT wo/w con CLINICAL HISTORY: r/o osteomyelitis TECHNIQUE: Multisequence, multiplanar MR images of the right hip were obtained without contrast COMPARISON: Comparison is made to CT abdomen pelvis 11/15/2019 FINDINGS: No bony edema or abnormal enhancement is seen. No drainable fluid collections. Prominent prostate wit h a mildly trabeculated wall incidentally noted compatible with chronic outlet obstruction from prost atomegaly. IMPRESSION: No evidence of osteomyelitis or abscess formation. ACT 112: Negative or not required by law. Electronically signed by: Lucian Perez M.D. 05/15/2023 7:30 PM
[2023-05-16 08:52] LABS: BUN Creatinine Ratio 21.1 (10-20); Calcium 9.2 mg/dl (8.6-10.3); Creatinine Clr Calc Pharmacy 27.4 ml/min; Est GFR (Non-African American) 34.6 ml/min; Magnesium 1.8 mg/dl (1.7-2.4); Phosphorus 4.5 mg/dl (2.5-4.9); Potassium 4.5 mmol/L (3.5-5.1)
[2023-05-16 08:59] LABS: Hematocrit (blood only) 41.3 % (42.0-52.0); Hemoglobin 13.4 g/dl (14.0-18.0); Mean Corpuscular Hemoglobin 29.1 pg (25.0-34.0); Mean Corpuscular Hgb Conc 32.4 g/dL (32.0-36.0); Mean Corpuscular Volume 89.6 fL (80.0-100.0); Mean Platelet Volume 10.3 fL (9.4-12.4); Platelet Count 514 K/uL (130-400); Red Blood Count 4.61 M/uL (4.70-6.10); White Blood Count 17.75 K/ul (4.8-10.8)
[2023-05-16] MEDS: CEFEPIME 1,000 MG in SYRINGE 0 ML IV SCH (17:26)
--- NOTE | 2023-05-16 17:56 | Hospitalist Progress Note ---
Date of Service May 16, 2023 Assessment & Plan (1) Severe sepsis: Plan 67 yo m with hyperlipidemia, COPD, hypertension, peripheral vascular disease, dural regular venous fistula, CAD per epic but no cardiac disease as per and also per previous cardio notes, constipation, protein calorie monitoring, history of narcotic bowel syndrome, osteoarthritis, lumbar degenerative disc disease, cervical myelopathy, left cervical adenopathy, history of tobacco abuse who was admitted with hypoxia, severe sepsis from pneumonia and ongoing right hip pressure ulcer. states he is mostly in the bed not moving much. He does not ambulate much. He is mostly wheelchair-bound. He can transfer from the bed to the wheelchair. Because of his laying in the bed all the time he has pressure ulcers. His pressure ulcers in the sacral region have healed. But he still has an ongoing pressure ulcer in the right hip. Patient is following with the wound care. As per no trouble swallowing. Pt is currently stable for discharge. He was previously treated for the following: Severe sepsis Secondary to right lower lobe pneumonia (aspiration pna) Acute hypoxic resp. failure On admission Lactic acid 3.8, WBC 31 temperature 37.8. Heart heart rates in 140s. Procalcitonin 4.6 Received aggressive fluids Received IV cefepime in the ER Respiratory bio fire negative UA negative Sputum cultx - no growth Blood cultx - ngtd wound cultx - posit. as outpt for yeast - currently posit. for missael and proteus Treated with IV Vanco and Zosyn and p.o. Doxy -> Currently on IV Flagyl and Cefepime, can transition back to po on discharge (switched back to IV with increasing wbc once more) Pt currently on RA and improved. Speech eval d/t concern for aspiration -> c/w aspiration. Met with speech. Right hip pressure ulcer stage III Cx + for missael and pt treated w/ topical antifungal Also + for proteus sensitive to cefepime/Levaquin above Hip x-ray - no acute abnormality Hip MRI ordered on 05/14- no evidence of osteomyelitis Wound care Currently on IV Flagyl and Cefepime as above Elevated troponin hs-trop was elevated and downtrended EKG with sinus tachycardia EF 55-60% Borderline LVH and grade I diastolic heart failure Mostly demand ischemia, doubt ACS CKD stage III Presented with creatinine of 1.8 which seems to be around baseline as per epic Cr has been as low as 1.5, 1 bag of NSS today Continue to monitor Hypomagnesemia replace and monitor Hypertension Held amlodipine for severe sepsis initially Resumed, continue Persistently elevated Started on metoprolol 12.5mg daily Ambulatory dysfunction Chronic back pain On pain meds -IV dilaudid discontinued -continue with po tylenol, po dilaudid, consider toradol Wheelchair-bound Can do transfers PT OT when stable recommending rehab Peripheral vascular disease On aspirin and statin, continue GERD Protonix, continue Diet: HH/pureed/easy to chew DVT prophylaxis: Heparin subcu Disposition: Currently awaiting placement at rehab, appeals in place Full code per discussion with the called and updated at 4:38pm on 05/14/23. Admission and Anticipated Discharge Date Admission Date: May 08, 2023 Subjective Pt seen with at bedside. discussion of palliative aspiration choice. per nursing pt now requesting IV dilaudid and refusing po dilaudid. Review of Systems Review of Systems: All systems reviewed & are unremarkable except as noted in Subjective Physical Exam Physical Exam: General: Alert, oriented. No acute distress. thin Skin: No noted rashes or bruises Psych: Appropriate mood and affect Neuro: weakness HEENT: NC/AT Chest: Nontender to palpation. CV: RRR, Normal s1, s2. No murmurs appreciated Resp: Breath sounds clear bilaterally, no increased effort of breathing. Abdomen: Soft, nontender, nondistended. No guarding. No organomegaly appreciated. Extremities: No edema in lower extremities bilaterally. Noted skin atrophy in lower extremities Results & Data Results & Data Vital Signs (Past 12 Hours) Vital Signs Temp Pulse Pulse Resp BP Pulse Ox O2 Del Method 05/16/23 15:36 36.8 C 85 16 148/73 H 95 Room Air 05/16/23 14:57 95 H 05/16/23 11:33 36.7 C 78 16 149/75 H 96 Room Air 05/16/23 08:00 36.4 C L 97 H 16 134/70 99 Room Air 05/16/23 07:52 Room Air 05/16/23 07:15 93 H 05/16/23 07:12 99 H 18 95 Room Air
[2023-05-17 08:01] LABS: Hemoglobin 12.6 g/dl (14.0-18.0); Mean Corpuscular Hemoglobin 29.4 pg (25.0-34.0); Mean Corpuscular Hgb Conc 33.2 g/dL (32.0-36.0); Mean Corpuscular Volume 88.6 fL (80.0-100.0); Mean Platelet Volume 10.5 fL (9.4-12.4); Platelet Count 546 K/uL (130-400); RDW Standard Deviation 51.8 fL (36.4-46.3); Red Blood Count 4.29 M/uL (4.70-6.10); White Blood Count 30.71 K/ul (4.8-10.8)
[2023-05-17 08:18] LABS: BUN Creatinine Ratio 20.4 (10-20); Calcium 8.8 mg/dl (8.6-10.3); Est GFR (African American) 42.1 ml/min; Est GFR (Non-African American) 36.4 ml/min; Magnesium 1.6 mg/dl (1.7-2.4); Phosphorus 3.5 mg/dl (2.5-4.9); Potassium 4.1 mmol/L (3.5-5.1)
[2023-05-17] MEDS: POLYETHYLENE (MIRALAX) 17 GM PACK PO SCH (08:45)
[2023-05-17] MEDS: DAPTOmycin 200 MG in SYRINGE 0 ML IV SCH (09:34)
[2023-05-17] MEDS: MAGNESIUM SULFATE / D5W 1 GM/100 ML BAG IV SCH (09:35)
--- NOTE | 2023-05-17 10:25 | XRay Report ---
KUB HISTORY: Acute abdominal pain with constipation r/o constipation COMPARISON: CT abdomen and pelvis 11/15/2019 FINDINGS: Nonobstructive bowel gas pattern. Barium noted within the large bowel from the video swallo w study obtained 05/10/2023. Mild gaseous distention of the stomach. Evaluation for constipation is guido ited secondary to the aforementioned barium. No renal calculi. No ureteral calculi. No pneumoperiton eum or pneumatosis. No fracture. IMPRESSION: 1. Nonobstructive bowel gas pattern. 2. Residual barium noted throughout the large bowel from the video swallow study obtained 05/10/2023. ACT 112: Negative or not required by law. The above report was generated using voice recognition software. It may contain grammatical, syntax o r spelling errors. Electronically signed by: Rigo Baptiste M.D. 05/17/2023 10:24 AM
--- NOTE | 2023-05-17 11:49 | Hospitalist Progress Note ---
Date of Service May 17, 2023 Assessment & Plan (1) Severe sepsis: Plan 67 yo m with hyperlipidemia, COPD, hypertension, peripheral vascular disease, dural regular venous fistula, CAD per epic but no cardiac disease as per and also per previous cardio notes, constipation, protein calorie monitoring, history of narcotic bowel syndrome, osteoarthritis, lumbar degenerative disc disease, cervical myelopathy, left cervical adenopathy, history of tobacco abuse who was admitted with hypoxia, severe sepsis from pneumonia and ongoing right hip pressure ulcer. states he is mostly in the bed not moving much. He does not ambulate much. He is mostly wheelchair-bound. He can transfer from the bed to the wheelchair. Because of his laying in the bed all the time he has pressure ulcers. His pressure ulcers in the sacral region have healed. But he still has an ongoing pressure ulcer in the right hip. Patient is following with the wound care. As per no trouble swallowing. Pt was previously treated for the following: Severe sepsis Secondary to right lower lobe pneumonia (aspiration pna) Acute hypoxic resp. failure On admission Lactic acid 3.8, WBC 31 temperature 37.8. Heart heart rates in 140s. Procalcitonin 4.6 Received aggressive fluids Received IV cefepime in the ER Respiratory bio fire negative UA negative Sputum cultx - no growth Blood cultx - ngtd wound cultx - posit. as outpt for yeast - currently posit. for missael and proteus Treated with IV Vanco and Zosyn and p.o. Doxy -> Currently on IV Flagyl and Cefepime, can transition back to po on discharge (switched back to IV with increasing wbc once more). Daptomycin added on 05/16 Pt currently on RA and improved. Speech eval d/t concern for aspiration -> c/w aspiration. Met with speech. Right hip pressure ulcer stage III Cx + for missael and pt treated w/ topical antifungal Also + for proteus sensitive to cefepime/Levaquin above Hip x-ray - no acute abnormality Hip MRI ordered on 05/14- no evidence of osteomyelitis Wound care Currently on IV Flagyl and Cefepime as above Constipation On narcs using frequently KUB Daily docusate Daily miralax and lactulose enemas -per nursing had a very large BM on 05/16 Elevated troponin hs-trop was elevated and downtrended EKG with sinus tachycardia EF 55-60% Borderline LVH and grade I diastolic heart failure Mostly demand ischemia, doubt ACS CKD stage III Presented with creatinine of 1.8 which seems to be around baseline as per epic Cr has been as low as 1.5, 1 bag of NSS today Continue to monitor Hypomagnesemia replace and monitor Hypertension Held amlodipine for severe sepsis initially Resumed, continue Persistently elevated Started on metoprolol 12.5mg daily Ambulatory dysfunction Chronic back pain On pain meds -IV dilaudid discontinued -continue with po tylenol, po dilaudid, consider toradol Wheelchair-bound Can do transfers PT OT when stable recommending rehab Peripheral vascular disease On aspirin and statin, continue GERD Protonix, continue Diet: HH/pureed/easy to chew DVT prophylaxis: Heparin subcu Disposition: Currently awaiting placement at rehab, appeals in place Full code per discussion with the updated at bedside on 05/16 Admission and Anticipated Discharge Date Admission Date: May 08, 2023 Subjective WBC worsening. Pt denies any symptoms. Has not had a BM for many days, getting narcotics. Review of Systems Review of Systems: All systems reviewed & are unremarkable except as noted in Subjective Physical Exam Physical Exam: General: Alert, oriented. No acute distress. thin Skin: No noted rashes or bruises Psych: Appropriate mood and affect Neuro: weakness HEENT: NC/AT Chest: Nontender to palpation. CV: RRR, Normal s1, s2. No murmurs appreciated Resp: Breath sounds clear bilaterally, no increased effort of breathing. Abdomen: Soft, nontender, nondistended. No guarding. No organomegaly appreciated. Extremities: No edema in lower extremities bilaterally. Noted skin atrophy in lower extremities Results & Data Results & Data Vital Signs (Past 12 Hours) Vital Signs Temp Pulse Pulse Resp BP Pulse Ox O2 Del Method 05/17/23 10:49 36.7 C 89 14 128/64 97 Room Air 05/17/23 07:54 110 H 05/17/23 07:28 36.9 C 107 H 14 115/69 94 Room Air 05/17/23 07:17 104 H 18 95 Room Air 05/17/23 07:10 Room Air 05/17/23 04:00 36.6 C 102 H 18 121/60 94 Room Air 05/17/23 00:23 110 H 05/17/23 00:00 36.7 C 102 H 18 127/68 99 Room Air
[2023-05-17] MEDS: LACTULOSE 200GM/700ML WTR ENEMA PR SCH (13:28)
[2023-05-17] MEDS: ACETAMINOPHEN 325 MG TAB PO PRN (14:37)
[2023-05-18 06:52] LABS: Basophils % (auto) 0.8 %; Eosinophils # (auto) 0.38 K/uL (0.00-0.50); Eosinophils % (auto) 1.5 %; Hemoglobin 12.1 g/dl (14.0-18.0); Immature Granulocytes # (auto) 0.51 K/uL (0.01-0.20); Lymphocytes # (auto) 3.31 K/uL (1.20-3.40); Lymphocytes % (auto) 12.9 %; Mean Corpuscular Hemoglobin 29.1 pg (25.0-34.0); Mean Corpuscular Hgb Conc 31.8 g/dL (32.0-36.0); Mean Corpuscular Volume 91.3 fL (80.0-100.0); Mean Platelet Volume 10.2 fL (9.4-12.4); Monocytes # (auto) 1.74 K/uL (0.11-0.59); Monocytes % (auto) 6.8 %; Neutrophils # (auto) 19.56 K/uL (1.40-6.50); Platelet Count 524 K/uL (130-400); RDW Coefficient of Variation 16.3 % (11.5-14.5); RDW Standard Deviation 54.4 fL (36.4-46.3); Red Blood Count 4.16 M/uL (4.70-6.10)
[2023-05-18 07:13] LABS: Albumin Level 3.1 gm/dl (3.4-5.0); BUN Creatinine Ratio 18.8 (10-20); Bilirubin,Total 0.4 mg/dl (0.2-1.0); Creatinine Clr Calc Pharmacy 28.6 ml/min; Est GFR (African American) 42.1 ml/min; Est GFR (Non-African American) 36.4 ml/min; Magnesium 2.2 mg/dl (1.7-2.4); Phosphorus 3.8 mg/dl (2.5-4.9); Potassium 4.6 mmol/L (3.5-5.1); Total Protein 6.1 gm/dl (6.0-8.3)
--- NOTE | 2023-05-18 08:18 | Hospitalist Progress Note ---
Date of Service May 18, 2023 Assessment & Plan (1) Severe sepsis: Plan 67 yo m with hyperlipidemia, COPD, hypertension, peripheral vascular disease, dural regular venous fistula, CAD per epic but no cardiac disease as per and also per previous cardio notes, constipation, protein calorie monitoring, history of narcotic bowel syndrome, osteoarthritis, lumbar degenerative disc disease, cervical myelopathy, left cervical adenopathy, history of tobacco abuse who was admitted with hypoxia, severe sepsis from pneumonia and ongoing right hip pressure ulcer. states he is mostly in the bed not moving much. He does not ambulate much. He is mostly wheelchair-bound. He can transfer from the bed to the wheelchair. Because of his laying in the bed all the time he has pressure ulcers. His pressure ulcers in the sacral region have healed. But he still has an ongoing pressure ulcer in the right hip. Patient is following with the wound care. As per no trouble swallowing. Pt was previously treated for the following: Severe sepsis Secondary to right lower lobe pneumonia (aspiration pna) Acute hypoxic resp. failure On admission Lactic acid 3.8, WBC 31 temperature 37.8. Heart heart rates in 140s. Procalcitonin 4.6 Received aggressive fluids Received IV cefepime in the ER Respiratory bio fire negative UA negative Sputum cultx - no growth Blood cultx - ngtd wound cultx - posit. as outpt for yeast - currently posit. for missael and proteus Treated with IV Vanco and Zosyn and p.o. Doxy -> Currently on IV Flagyl and Cefepime, can transition back to po on discharge (switched back to IV with increasing wbc once more). Daptomycin added on 05/16 Pt currently on RA and improved. Speech eval d/t concern for aspiration -> c/w aspiration. Met with speech. Right hip pressure ulcer stage III Cx + for missael and pt treated w/ topical antifungal Also + for proteus sensitive to cefepime/Levaquin above Hip x-ray - no acute abnormality Hip MRI ordered on 05/14- no evidence of osteomyelitis Wound care Currently on IV Flagyl and Cefepime as above Constipation On narcs using frequently KUB Daily docusate Daily miralax and lactulose enemas prn -per nursing had a very large BM on 05/16 Elevated troponin hs-trop was elevated and downtrended EKG with sinus tachycardia EF 55-60% Borderline LVH and grade I diastolic heart failure Mostly demand ischemia, doubt ACS CKD stage III Presented with creatinine of 1.8 which seems to be around baseline as per [facility] Cr has been as low as 1.5 Continue to monitor Hypomagnesemia replace and monitor Hypertension Held amlodipine for severe sepsis initially Resumed, continue Persistently elevated Started on metoprolol 12.5mg daily Ambulatory dysfunction Chronic back pain On pain meds -IV dilaudid discontinued -continue with po tylenol, po dilaudid, consider toradol Wheelchair-bound Can do transfers PT OT when stable recommending rehab Peripheral vascular disease On aspirin and statin, continue GERD Protonix, continue Diet: HH/pureed/easy to chew DVT prophylaxis: Heparin subcu Disposition: Currently awaiting placement at rehab, appeals in place Full code per discussion with the Admission and Anticipated Discharge Date Admission Date: May 08, 2023 Subjective Pt seen in follow up of sepsis, PNA, hypoxic resp. failure Pulmonary medicine initially consulted - concern for aspiration, pt on abx Speech eval done - c/w aspiration Pt much improved, was on RA, and WBC much improved - almost normalized. However over the past several days WBC again elevated. Pt had constipation now resolved with bowel regimen, also reportedly not following aspiration precautions. has known wound on his hip - MRI was obtained - negative for any osteo. he was restarted on IV abx as WBC elevated again. Currently sitting up in bed in [facility], is asking about possible discharge. Reports feeling well. Pt's present at the bedisde. pt denies any chest pain, shortness of breath, has some minimal cough Review of Systems Review of Systems: All systems reviewed & are unremarkable except as noted in Subjective Physical Exam Physical Exam: General- thin M , + chronically ill appearing, on RA, in NAD Head- atraumatic Eyes- PERRL. ENT- oropharynx clear Neck- supple, no JVD. Lungs- + minimal b/l rhonchi , no wheezing Heart - regular rhythm, no murmur, no gallop. Abdomen- normal bowel sounds, soft, nontender, no distension. Extremities- no pretibial edema, no erythema seen Neuro- alert, oriented x 3; PERRL,; no facial palsy; no dysarthria; b/l lower extremity weakness Skin- pressure ulcer on right hip ~ 1.5cm x 1.5cm Results & Data Results & Data Vital Signs (Past 12 Hours) Vital Signs Temp Pulse Pulse Resp BP BP Pulse Ox 05/18/23 07:46 05/18/23 07:40 36.6 C 88 16 147/63 H 97 05/18/23 07:40 90 18 96 05/18/23 07:00 94 H 05/18/23 03:58 36.5 C 88 20 99/61 L 95 05/17/23 23:10 85 05/17/23 22:53 36.7 C 91 H 18 118/75 95 05/17/23 20:58 O2 Del Method 05/18/23 07:46 Room Air 05/18/23 07:40 Room Air 05/18/23 07:40 Room Air 05/18/23 07:00 05/18/23 03:58 Room Air 05/17/23 23:10 05/17/23 22:53 Room Air 05/17/23 20:58 Room Air Laboratory Results 05/18/23 05/17/23 05/17/23 Range/Units 06:14 Unknown 06:56 WBC 25.70 H (4.8-10.8) K/ul RBC 4.16 L (4.70-6.10) M/uL Hgb 12.1 L (14.0-18.0) g/dl Hct 38.0 L (42.0-52.0) % MCV 91.3 (80.0-100.0) fL MCH 29.1 (25.0-34.0) pg MCHC 31.8 L (32.0-36.0) g/dL RDW Std Deviation 54.4 H (36.4-46.3) fL RDW Coeff of [place] 16.3 H (11.5-14.5) % Plt Count 524 H (130-400) K/uL MPV 10.2 (9.4-12.4) fL Immature Gran % (Auto) 2.0 % Neut % (Auto) 76.0 % Lymph % (Auto) 12.9 % [place] % (Auto) 6.8 % Eos % (Auto) 1.5 % Baso % (Auto) 0.8 % Neut # (Auto) 19.56 H (1.40-6.50) K/uL Lymph # (Auto) 3.31 (1.20-3.40) K/uL [place] # (Auto) 1.74 H (0.11-0.59) K/uL Eos # (Auto) 0.38 (0.00-0.50) K/uL Baso # (Auto) 0.20 (0.00-0.20) K/uL Immature Gran # (Auto) 0.51 H (0.01-0.20) K/uL Sodium 135 L 135 L (136-145) mmol/L Potassium 4.6 4.1 (3.5-5.1) mmol/L Chloride 109 H 108 H (98-107) mmol/L Carbon Dioxide 17 L 18 L (21-32) mmol/L Anion Gap 9 9 (3-11) BUN 35 H 38 H (6-23) mg/dl Creatinine 1.86 H 1.86 H (0.6-1.4) mg/dl Est Cr Clr Drug Dosing 28.6 27.0 ml/min Est GFR ( Amer) 42.1 42.1 ml/min Est GFR (Non-Af Amer) 36.4 36.4 ml/min BUN/Creatinine Ratio 18.8 20.4 H (10-20) Glucose 94 101 H (70-99(Fasting)) mg/dl Calcium 9.0 8.8 (8.6-10.3) mg/dl Phosphorus 3.8 3.5 D (2.5-4.9) mg/dl Magnesium 2.2 1.6 L (1.7-2.4) mg/dl Total Bilirubin 0.4 (0.2-1.0) mg/dl AST 14 (13-39) U/L ALT 15 (7-52) U/L Alkaline Phosphatase 57 (34-104) U/L Total Protein 6.1 (6.0-8.3) gm/dl Albumin 3.1 L (3.4-5.0) gm/dl Globulin 3.0 (2.5-4.0) gm/dl Albumin/Globulin Ratio 1.0 (0.9-2) Stl C. diff Tox B Gene Negative Cdiff Gene (Neg) Medications Administered Current Inpatient Medications Acetaminophen (Acetaminophen 325 Mg Tab) 650 mg PO Q4H PRN PRN Reason: Pain or Fever Stop: 06/07/23 08:35 Last Admin: 05/17/23 14:37 Dose: 650 mg Amlodipine Besylate (Amlodipine Besylate 5 Mg Tab) 10 mg PO DAILY [facility] Stop: 06/07/23 08:59 Last Admin: 05/18/23 08:02 Dose: 10 mg Aspirin (Aspirin 81 Mg Ectab) 81 mg PO DAILY [facility] Stop: 06/07/23 08:59 Last Admin: 05/18/23 08:00 Dose: 81 mg Atorvastatin Calcium (Atorvastatin 20 Mg Tab) 20 mg PO DAILY [facility] Stop: 06/07/23 08:59 Last Admin: 05/17/23 08:36 Dose: 20 mg Budesonide (Budesonide 0.5 Mg/2 Ml Vial (Pulmicort)) 0.5 mg NEB BIDR [facility] Stop: 06/14/23 06:59 Last Admin: 05/18/23 07:14 Dose: 0.5 mg Clotrimazole (Clotrimazole 1% Cr 15 Gm Tube) 1 appln EXT BID [facility] Stop: 06/08/23 14:29 Last Admin: 05/18/23 08:03 Dose: 1 appln Diclofenac Sodium (Diclofenac Sod 1% Gel 100 Gm Tube) 2 gm EXT BID [facility]; Protocol Stop: 06/10/23 20:59 Last Admin: 05/18/23 08:03 Dose: 2 gm Docusate Sodium (Docusate Sodium 100 Mg Cap) 100 mg PO BID [facility] Stop: 06/07/23 08:59 Last Admin: 05/18/23 08:04 Dose: Not Given Folic Acid (Folic Acid 1 Mg Tab) 1 mg PO DAILY [facility] Stop: 06/07/23 08:59 Last Admin: 05/18/23 08:01 Dose: 1 mg Formoterol Fumarate (Formoterol 20 Mcg/2 Ml Vial) 20 mcg NEB BIDR [facility] Stop: 06/07/23 11:29 Last Admin: 05/18/23 07:14 Dose: 20 mcg Gabapentin (Gabapentin 300 Mg Cap) 300 mg PO 0900,1400 [facility] Stop: 06/07/23 08:59 Last Admin: 05/18/23 08:01 Dose: 300 mg Gabapentin (Gabapentin 600 Mg Tab) 600 mg PO [facility] Stop: 06/07/23 20:59 Last Admin: 05/17/23 20:06 Dose: 600 mg Guaifenesin (Guaifenesin 600 Mg Tabcr) 1,200 mg PO Q12 [facility] Stop: 06/08/23 20:59 Last Admin: 05/18/23 08:03 Dose: 1,200 mg Heparin Sodium (Porcine) (Heparin Sod 5,000 Unit/0.5 Ml Vial) 5,000 units SQ Q8 [facility] Stop: 06/07/23 13:59 Last Admin: 05/18/23 05:10 Dose: 5,000 units Hydromorphone HCl (Hydromorphone Hcl 2 Mg Tab) 2 mg PO QID PRN PRN Reason: Pain Stop: 05/27/23 21:45 Last Admin: 05/18/23 05:45 Dose: 2 mg Metronidazole (Flagyl) 500 mg in 100 mls @ 100 mls/hr IV Q8H [facility]; Protocol Stop: 05/18/23 11:29 Last Infusion: 05/18/23 03:58 Dose: Infused Cefepime HCl 1,000 mg/ Syringe 10 mls @ 5 mls/min IV Q12H [facility]; Protocol Stop: 05/22/23 17:59 Last Admin: 05/18/23 05:10 Dose: 5 mls/min Daptomycin 200 mg/ Syringe 4 mls @ 2 mls/min IV Q48H [facility]; Protocol Stop: 05/24/23 08:59 Last Admin: 05/17/23 09:34 Dose: 2 mls/min Ipratropium [place] (Ipratropium [place] Neb Soln 0.02% 0.5mg/2.5ml Vial) 0.5 mg INH QIDR PRN PRN Reason: Shortness Of Breath Or Wheezing Stop: 06/07/23 10:59 Levalbuterol HCl (Levalbuterol 1.25 Mg/3 Ml Neb) 1.25 mg NEB QIDR PRN PRN Reason: Shortness Of Breath Or Wheezing Stop: 06/07/23 10:59 Lidocaine (Lidocaine 5% 1 Patch) 1 patch TD HS [facility] Stop: 06/12/23 21:49 Last Admin: 05/17/23 20:07 Dose: 1 patch Metoprolol Succinate (Metoprolol Succ 25mg Ext Rel Tab) 12.5 mg PO QAM [facility] Stop: 06/13/23 16:29 Last Admin: 05/18/23 08:01 Dose: 12.5 mg Miscellaneous (Remove Lidoderm Patch) 1 each N/A QAM [facility] Stop: 06/13/23 08:59 Last Admin: 05/18/23 08:04 Dose: 1 each Multivitamins (Multivitamin Tab) 1 tab PO DAILY [facility] Stop: 06/07/23 08:59 Last Admin: 05/18/23 08:03 Dose: 1 tab Nitroglycerin (Nitroglycerin Sl 0.4 Mg/Tab Tab) 0.4 mg SL Q5M PRN PRN Reason: Chest Pain Stop: 06/07/23 08:35 Pantoprazole Sodium (Pantoprazole 40 Mg Tab) 40 mg PO BID [facility] Stop: 06/07/23 08:59 Last Admin: 05/18/23 08:03 Dose: 40 mg Potassium Chloride (Potassium Chloride 10 Meq Tabcr) 10 meq PO DAILY [facility] Stop: 06/07/23 08:59 Last Admin: 05/18/23 08:13 Dose: 10 meq Sodium Chloride (Sodium Chlor 7% 4 Ml Neb) 4 ml NEB BIDR [facility] Stop: 06/08/23 18:59 Last Admin: 05/18/23 07:15 Dose: Not Given Thiamine HCl (Thiamine Hcl 100 Mg Tab) 100 mg PO DAILY [facility] Stop: 06/07/23 08:59 Last Admin: 05/18/23 08:02 Dose: 100 mg Vitamin B Complex/Folic Acid (Nephrocaps) 1 cap PO DAILY [facility] Stop: 06/07/23 08:59 Last Admin: 05/18/23 08:01 Dose: 1 cap
[2023-05-18] MEDS: SENNA 8.6 MG TAB PO SCH (08:50)
[2023-05-18] MEDS: ADVANCED PROBIOTIC 625 MG CAPSULE PO SCH (08:52)
--- NOTE | 2023-05-19 05:38 | Hospitalist Progress Note ---
Date of Service May 19, 2023 Assessment & Plan (1) Severe sepsis: Plan 67 yo m with hyperlipidemia, COPD, hypertension, peripheral vascular disease, dural regular venous fistula, CAD per epic but no cardiac disease as per and also per previous cardio notes, constipation, protein calorie monitoring, history of narcotic bowel syndrome, osteoarthritis, lumbar degenerative disc disease, cervical myelopathy, left cervical adenopathy, history of tobacco abuse who was admitted with hypoxia, severe sepsis from pneumonia and ongoing right hip pressure ulcer. states he is mostly in the bed not moving much. He does not ambulate much. He is mostly wheelchair-bound. He can transfer from the bed to the wheelchair. Because of his laying in the bed all the time he has pressure ulcers. His pressure ulcers in the sacral region have healed. But he still has an ongoing pressure ulcer in the right hip. Patient is following with the wound care. As per no trouble swallowing. Pt was previously treated for the following: Severe sepsis Secondary to right lower lobe pneumonia (aspiration pna) Acute hypoxic resp. failure On admission Lactic acid 3.8, WBC 31 temperature 37.8. Heart heart rates in 140s. Procalcitonin 4.6 Received aggressive fluids Received IV cefepime in the ER Respiratory bio fire negative UA negative Sputum cultx - no growth Blood cultx - ngtd wound cultx - posit. as outpt for yeast - currently posit. for missael and proteus Treated with IV Vanco and Zosyn and p.o. Doxy -> Currently on Flagyl and Cefepime, can transition back to po on discharge (switched back to IV with increasing wbc once more). Daptomycin added on 05/16 Pt currently on RA and improved. Speech eval d/t concern for aspiration -> c/w aspiration. Met with speech. Right hip pressure ulcer stage III Cx + for missael and pt treated w/ topical antifungal Also + for proteus sensitive to cefepime/Levaquin above Hip x-ray - no acute abnormality Hip MRI ordered on 05/14- no evidence of osteomyelitis Wound care Currently on Flagyl and Cefepime as above Constipation On narcs using frequently KUB Daily docusate Daily miralax and lactulose enemas prn -per nursing had a very large BM on 05/16 Elevated troponin hs-trop was elevated and downtrended EKG with sinus tachycardia EF 55-60% Borderline LVH and grade I diastolic heart failure Mostly demand ischemia, doubt ACS CKD stage III Presented with creatinine of 1.8 which seems to be around baseline as per epic Cr has been as low as 1.5 Continue to monitor Hypomagnesemia replace and monitor Hypertension Held amlodipine for severe sepsis initially Resumed, continue Persistently elevated Started on metoprolol 12.5mg daily Ambulatory dysfunction Chronic back pain On pain meds -IV dilaudid discontinued -continue with po tylenol, po dilaudid, consider toradol Wheelchair-bound Can do transfers PT OT when stable recommending rehab Peripheral vascular disease On aspirin and statin, continue GERD Protonix, continue Diet: HH/pureed/easy to chew DVT prophylaxis: Heparin subcu Disposition: plan to dc home (rehab was denied) Full code per discussion with the Admission and Anticipated Discharge Date Admission Date: May 08, 2023 Subjective Pt seen in follow up of sepsis, PNA, hypoxic resp. failure Pulmonary medicine initially consulted - concern for aspiration, pt on abx Speech eval done - c/w aspiration Pt much improved, was on RA, and WBC much improved - almost normalized. However over the past several days WBC again elevated. Pt had constipation now resolved with bowel regimen, also reportedly not following aspiration precautions. has known wound on his hip - MRI was obtained - negative for any osteo. he was restarted on IV abx as WBC elevated again. Currently sitting up in bed in [facility], is asking about possible discharge. Reports feeling well. WBC trending down pt denies any chest pain, shortness of breath, has some minimal cough Review of Systems Review of Systems: All systems reviewed & are unremarkable except as noted in Subjective Physical Exam Physical Exam: General- thin M , + chronically ill appearing, on RA, in NAD Head- atraumatic Eyes- PERRL. ENT- oropharynx clear Neck- supple, no JVD. Lungs- + minimal b/l rhonchi , no wheezing Heart - regular rhythm, no murmur, no gallop. Abdomen- normal bowel sounds, soft, nontender, no distension. Extremities- no pretibial edema, no erythema seen Neuro- alert, oriented x 3; PERRL,; no facial palsy; no dysarthria; b/l lower extremity weakness Skin- pressure ulcer on right hip ~ 1.5cm x 1.5cm Results & Data Results & Data Vital Signs (Past 12 Hours) Vital Signs Temp Pulse Pulse Resp BP Pulse Ox O2 Del Method 05/19/23 02:51 36.5 C 76 18 123/69 97 Room Air 05/18/23 23:30 97 H 05/18/23 22:58 37 C 94 H 18 109/65 97 Room Air 05/18/23 22:43 Room Air 05/18/23 19:44 36.7 C 91 H 18 130/67 97 Room Air 05/18/23 19:23 102 H 18 97 Room Air Laboratory Results 05/19/23 Range/Units 07:43 WBC 17.88 H (4.8-10.8) K/ul RBC 4.20 L (4.70-6.10) M/uL Hgb 12.2 L (14.0-18.0) g/dl Hct 37.6 L (42.0-52.0) % MCV 89.5 (80.0-100.0) fL MCH 29.0 (25.0-34.0) pg MCHC 32.4 (32.0-36.0) g/dL RDW Std Deviation 53.4 H (36.4-46.3) fL RDW Coeff of [place] 16.3 H (11.5-14.5) % Plt Count 538 H (130-400) K/uL MPV 9.9 (9.4-12.4) fL Sodium 136 (136-145) mmol/L Potassium 4.5 (3.5-5.1) mmol/L Chloride 110 H (98-107) mmol/L Carbon Dioxide 17 L (21-32) mmol/L Anion Gap 9 (3-11) BUN 32 H (6-23) mg/dl Creatinine 1.78 H (0.6-1.4) mg/dl Est Cr Clr Drug Dosing 28.3 ml/min Est GFR ( Amer) 44.4 ml/min Est GFR (Non-Af Amer) 38.3 ml/min BUN/Creatinine Ratio 18.0 (10-20) Glucose 92 (70-99(Fasting)) mg/dl Calcium 9.2 (8.6-10.3) mg/dl Phosphorus 3.9 (2.5-4.9) mg/dl Magnesium 2.1 (1.7-2.4) mg/dl Total Bilirubin 0.3 (0.2-1.0) mg/dl AST 16 (13-39) U/L ALT 14 (7-52) U/L Alkaline Phosphatase 57 (34-104) U/L Total Creatine Kinase 35 (30-223) U/L Total Protein 6.4 (6.0-8.3) gm/dl Albumin 3.2 L (3.4-5.0) gm/dl Globulin 3.2 (2.5-4.0) gm/dl Albumin/Globulin Ratio 1.0 (0.9-2) Medications Administered Current Inpatient Medications Acetaminophen (Acetaminophen 325 Mg Tab) 650 mg PO Q4H PRN PRN Reason: Pain or Fever Stop: 06/07/23 08:35 Last Admin: 05/18/23 23:21 Dose: 650 mg Amlodipine Besylate (Amlodipine Besylate 5 Mg Tab) 10 mg PO DAILY [facility] Stop: 06/07/23 08:59 Last Admin: 05/19/23 07:48 Dose: 10 mg Aspirin (Aspirin 81 Mg Ectab) 81 mg PO DAILY [facility] Stop: 06/07/23 08:59 Last Admin: 05/19/23 07:48 Dose: 81 mg Atorvastatin Calcium (Atorvastatin 20 Mg Tab) 20 mg PO DAILY [facility] Stop: 06/07/23 08:59 Last Admin: 05/17/23 08:36 Dose: 20 mg Budesonide (Budesonide 0.5 Mg/2 Ml Vial (Pulmicort)) 0.5 mg NEB BIDR [facility] Stop: 06/14/23 06:59 Last Admin: 05/19/23 07:36 Dose: 0.5 mg Clotrimazole (Clotrimazole 1% Cr 15 Gm Tube) 1 appln EXT BID [facility] Stop: 06/08/23 14:29 Last Admin: 05/19/23 07:49 Dose: 1 appln Diclofenac Sodium (Diclofenac Sod 1% Gel 100 Gm Tube) 2 gm EXT BID [facility]; Protocol Stop: 06/10/23 20:59 Last Admin: 05/19/23 07:49 Dose: 2 gm Docusate Sodium (Docusate Sodium 100 Mg Cap) 100 mg PO BID [facility] Stop: 06/07/23 08:59 Last Admin: 05/19/23 07:46 Dose: Not Given Folic Acid (Folic Acid 1 Mg Tab) 1 mg PO DAILY [facility] Stop: 06/07/23 08:59 Last Admin: 05/19/23 07:48 Dose: 1 mg Formoterol Fumarate (Formoterol 20 Mcg/2 Ml Vial) 20 mcg NEB BIDR [facility] Stop: 06/07/23 11:29 Last Admin: 05/19/23 07:36 Dose: 20 mcg Gabapentin (Gabapentin 300 Mg Cap) 300 mg PO 0900,1400 [facility] Stop: 06/07/23 08:59 Last Admin: 05/19/23 07:46 Dose: 300 mg Gabapentin (Gabapentin 600 Mg Tab) 600 mg PO HS [facility] Stop: 06/07/23 20:59 Last Admin: 05/18/23 21:03 Dose: 600 mg Guaifenesin (Guaifenesin 600 Mg Tabcr) 1,200 mg PO Q12 [facility] Stop: 06/08/23 20:59 Last Admin: 05/19/23 07:50 Dose: 1,200 mg Heparin Sodium (Porcine) (Heparin Sod 5,000 Unit/0.5 Ml Vial) 5,000 units SQ Q8 [facility] Stop: 06/07/23 13:59 Last Admin: 05/19/23 05:30 Dose: 5,000 units Hydromorphone HCl (Hydromorphone Hcl 2 Mg Tab) 2 mg PO QID PRN PRN Reason: Pain Stop: 05/27/23 21:45 Last Admin: 05/19/23 03:57 Dose: 2 mg Cefepime HCl 1,000 mg/ Syringe 10 mls @ 5 mls/min IV Q12H [facility]; Protocol Stop: 05/22/23 17:59 Last Admin: 05/19/23 05:34 Dose: 5 mls/min Daptomycin 200 mg/ Syringe 4 mls @ 2 mls/min IV Q48H [facility]; Protocol Stop: 05/24/23 08:59 Last Admin: 05/19/23 07:49 Dose: 2 mls/min Ipratropium [place] (Ipratropium [place] Neb Soln 0.02% 0.5mg/2.5ml Vial) 0.5 mg INH QIDR PRN PRN Reason: Shortness Of Breath Or Wheezing Stop: 06/07/23 10:59 Lactobacillus Acidophilus (Advanced Probiotic 625 Mg Capsule) 1,250 mg PO DAILY [facility] Stop: 06/17/23 08:59 Last Admin: 05/19/23 07:47 Dose: 1,250 mg Levalbuterol HCl (Levalbuterol 1.25 Mg/3 Ml Neb) 1.25 mg NEB QIDR PRN PRN Reason: Shortness Of Breath Or Wheezing Stop: 06/07/23 10:59 Lidocaine (Lidocaine 5% 1 Patch) 1 patch TD HS [facility] Stop: 06/12/23 21:49 Last Admin: 05/18/23 20:59 Dose: 1 patch Metoprolol Succinate (Metoprolol Succ 25mg Ext Rel Tab) 12.5 mg PO QAM [facility] Stop: 06/13/23 16:29 Last Admin: 05/19/23 07:47 Dose: 12.5 mg Miscellaneous (Remove Lidoderm Patch) 1 each N/A [facility] Stop: 06/13/23 08:59 Last Admin: 05/19/23 08:03 Dose: 1 each Multivitamins (Multivitamin Tab) 1 tab PO DAILY [facility] Stop: 06/07/23 08:59 Last Admin: 05/19/23 07:48 Dose: 1 tab Nitroglycerin (Nitroglycerin Sl 0.4 Mg/Tab Tab) 0.4 mg SL Q5M PRN PRN Reason: Chest Pain Stop: 06/07/23 08:35 Pantoprazole Sodium (Pantoprazole 40 Mg Tab) 40 mg PO BID [facility] Stop: 06/07/23 08:59 Last Admin: 05/19/23 07:46 Dose: 40 mg Potassium Chloride (Potassium Chloride 10 Meq Tabcr) 10 meq PO DAILY [facility] Stop: 06/07/23 08:59 Last Admin: 05/19/23 08:02 Dose: 10 meq Sennosides (Senna 8.6 Mg Tab) 8.6 mg PO QAM [facility] Stop: 06/17/23 08:59 Last Admin: 05/19/23 07:46 Dose: Not Given Sodium Chloride (Sodium Chlor 7% 4 Ml Neb) 4 ml NEB BIDR [facility] Stop: 06/08/23 18:59 Last Admin: 05/19/23 07:46 Dose: Not Given Thiamine HCl (Thiamine Hcl 100 Mg Tab) 100 mg PO DAILY [facility] Stop: 06/07/23 08:59 Last Admin: 05/19/23 07:48 Dose: 100 mg Vitamin B Complex/Folic Acid (Nephrocaps) 1 cap PO DAILY [facility] Stop: 06/07/23 08:59 Last Admin: 05/19/23 07:47 Dose: 1 cap
[2023-05-19 08:05] LABS: Hematocrit (blood only) 37.6 % (42.0-52.0); Hemoglobin 12.2 g/dl (14.0-18.0); Mean Corpuscular Hgb Conc 32.4 g/dL (32.0-36.0); Mean Corpuscular Volume 89.5 fL (80.0-100.0); Mean Platelet Volume 9.9 fL (9.4-12.4); Platelet Count 538 K/uL (130-400); RDW Coefficient of Variation 16.3 % (11.5-14.5); RDW Standard Deviation 53.4 fL (36.4-46.3); White Blood Count 17.88 K/ul (4.8-10.8)
[2023-05-19 08:50] LABS: Albumin Level 3.2 gm/dl (3.4-5.0); Calcium 9.2 mg/dl (8.6-10.3); Potassium 4.5 mmol/L (3.5-5.1)
[2023-05-19 08:56] LABS: Creatinine Clr Calc Pharmacy 28.3 ml/min; Est GFR (African American) 44.4 ml/min; Est GFR (Non-African American) 38.3 ml/min; Phosphorus 3.9 mg/dl (2.5-4.9)
[2023-05-19 09:08] LABS: Bilirubin,Total 0.3 mg/dl (0.2-1.0); Magnesium 2.1 mg/dl (1.7-2.4)
[2023-05-19 09:14] LABS: Globulin 3.2 gm/dl (2.5-4.0); Total Protein 6.4 gm/dl (6.0-8.3)
[2023-05-19] MEDS: metroNIDAZOLE 500 MG TAB PO SCH (15:53)
[2023-05-20 07:22] LABS: Hematocrit (blood only) 39.9 % (42.0-52.0); Hemoglobin 13.2 g/dl (14.0-18.0); Mean Corpuscular Hemoglobin 29.6 pg (25.0-34.0); Mean Corpuscular Hgb Conc 33.1 g/dL (32.0-36.0); Mean Corpuscular Volume 89.5 fL (80.0-100.0); Mean Platelet Volume 10.2 fL (9.4-12.4); Platelet Count 618 K/uL (130-400); RDW Standard Deviation 52.7 fL (36.4-46.3); Red Blood Count 4.46 M/uL (4.70-6.10); White Blood Count 15.67 K/ul (4.8-10.8)
[2023-05-20 08:02] LABS: BUN Creatinine Ratio 17.1 (10-20); Calcium 9.7 mg/dl (8.6-10.3); Creatinine Clr Calc Pharmacy 28.1 ml/min; Est GFR (African American) 43.6 ml/min; Est GFR (Non-African American) 37.6 ml/min; Magnesium 2.1 mg/dl (1.7-2.4); Phosphorus 3.7 mg/dl (2.5-4.9); Potassium 4.4 mmol/L (3.5-5.1)
--- NOTE | 2023-05-20 15:11 | Discharge Summary ---
Date of Service May 20, 2023 Admission HPI Per Admitting Provider 67-year-old male with past medical history significant for hypertension, COPD, peripheral vascular disease, hypertension, dural regular venous fistula, CAD per epic but no cardiac disease as per and also per previous cardio notes, constipation, protein calorie monitoring, history of narcotic bowel syndrome, osteoarthritis, lumbar degenerative disc disease, cervical myelopathy, left cervical adenopathy, history of tobacco abuse comes because of not feeling well and hypoxia and found to be in severe sepsis mostly from pneumonia and also have ongoing right hip pressure ulcer. As per yesterday evening patient told her that he was not feeling well and felt like flu coming on. Around 3 AM he woke up and he was was short of breath and was rattling in the chest and diaphoretic and seemed confused and was brought to the hospital. His oxygen saturation were only 70%. He was placed on nonrebreather in the ER. Had temp spike in the ER.Tachycardic heart rate in the 140s. Blood pressure holding. Currently patient is alert and oriented. Denies any headache. Denies any chest pain. Has some dry cough. No runny nose. No sore throat. No nausea. No abdominal pain. Somewhat constipated, normal micturition. He has chronic back issues. states he is mostly in the bed not moving much. PT comes home. But does not ambulate much. He is mostly wheelchair-bound. He can transfer from the bed to the wheelchair. Because of his laying in the bed all the time he has pressure ulcers. His pressure ulcers in the sacral region healed up. But still has a ongoing pressure ulcer in the right hip.Patient is following with the wound care. As per no trouble swallowing. Past medical history. As mentioned above Past surgical history. Bilateral cataract replacement, chest tube insertion, colonoscopy, EGD, bilateral cataracts, cervical spine laminectomy, vertebral artery catheter placement. Family history. Mother had heart disease. Stroke. Father had lung cancer. Sister has heart disease. Brother has heart disease. Brother had throat cancer Admission Exam Per Admitting Provider General- Not in distress Head- atraumatic Eyes- PERRL. ENT- oropharynx clear Neck- supple, no JVD. Lungs- clear to auscultation mild b/l rhonchi and mild expiratory wheezing Heart- regular rhythm;Tachycardia, no murmur, no gallop. Abdomen- normal bowel sounds, soft, nontender, no distension. Extremities- no pretibial edema, no erythema seen Neuro- alert, oriented x 3; PERRL,; no facial palsy; no dysarthria; b/l lower extremity weakness Skin- pressure ulcer on right hip 1.5cm x 1.5cm stage 3 Principal Diagnosis Sepsis Acute hypoxic respiratory failure Discharge Exam General- thin M , + chronically ill appearing, on RA, in NAD Head- atraumatic Eyes- PERRL. ENT- oropharynx clear Neck- supple, no JVD. Lungs- + minimal b/l rhonchi , no wheezing Heart - regular rhythm, no murmur, no gallop. Abdomen- normal bowel sounds, soft, nontender, no distension. Extremities- no pretibial edema, no erythema seen Neuro- alert, oriented x 3; PERRL,; no facial palsy; no dysarthria; b/l lower extremity weakness Skin- pressure ulcer on right hip ~ 1.5cm x 1.5cm Discharge Data Allergies Allergy/AdvReac Type Severity Reaction Status Date / Time No Known Allergies Allergy Verified 05/02/23 14:09 Consultations 05/08/23 07:01 ED Decision to Admit Stat 05/08/23 08:36 Consult Pulmonology Routine Ordered Studies 05/08/23 09:56 CT angio chest PE protocol Stat FINDINGS: CTA: Heart is mildly enlarged. No pericardial effusion. Moderate coronary artery calcifications. Atherosclerosis of the thoracic aorta and great vessels. Multifocal stenoses noted within the subclavian, axillary and brachial arteries. No thoracic aortic aneurysm or dissection. No pulmonary emboli identified. CT CHEST: Unremarkable thyroid. Mild pulmonary emphysema. Mildly enlarged subcarinal and right hilar lymph nodes measure up to 10-11 mm. No pneumothorax. Trace right pleural effusion. 5 mm stable low suspicion of solid nodule within the left lung apex. Mild biapical pleural parenchymal scarring. Mild bronchial wall thickening. Multifocal mucous plugging with bronchial wall thickening throughout the right lung. There is near complete opacification noted within the right mainstem bronchus with prominent mucous plugging extending into the right middle and lower lobes. Dense airspace consolidation within the right lung base, most pronounced within the basal segments of the right lower lobe. There are associated intermixed groundglass and centrilobular opacities with intralobular septal thickening. Mild right-sided hydronephrosis. Right-sided renal calculi measure up to 7 mm. Atrophic left kidney. Nonspecific distal esophageal wall thickening. Mild gallbladder distention. Unremarkable soft tissues. No acute fracture. IMPRESSION: 1. No pulmonary emboli identified. 2. Extensive mucous plugging of the right mainstem bronchus, right upper, middle and lower lobe bronchi with associated airspace opacities compatible with pneumonia versus aspiration pneumonitis. No obstructing endobronchial lesion is identified, however if there is further clinical concern, bronchoscopy may be performed. 3. Trace right parapneumonic effusion. 4. Right nephrolithiasis with partially imaged mild right-sided hydronephrosis. Correlation with urinalysis recommended. 5. Likely reactive mild mediastinal and right hilar lymphadenopathy. 05/10/23 10:00 FL video swallow Routine FINDINGS: Aspiration with thin liquid barium. Vallecular retention noted throughout the study. Patient was unable to swallow the barium pudding with cracker consistency. There is decreased hyoid excursion and epiglottic deflection throughout the exam. IMPRESSION: 1. Aspiration with thin liquid barium. 2. Please see the speech pathologist report for detailed findings and recommendations. 05/15/23 11:10 MR hip RT wo/w con Urgent FINDINGS: No bony edema or abnormal enhancement is seen. No drainable fluid collections. Prominent prostate with a mildly trabeculated wall incidentally noted compatible with chronic outlet obstruction from prostatomegaly. IMPRESSION: No evidence of osteomyelitis or abscess formation. Hospital Course (1) Severe sepsis: Plan 67 yo m with hyperlipidemia, COPD, hypertension, peripheral vascular disease, dural regular venous fistula, CAD per epic but no cardiac disease as per and also per previous cardio notes, constipation, protein calorie monitoring, history of narcotic bowel syndrome, osteoarthritis, lumbar degenerative disc disease, cervical myelopathy, left cervical adenopathy, history of tobacco abuse who was admitted with hypoxia, severe sepsis from pneumonia and ongoing right hip pressure ulcer. states he is mostly in the bed not moving much. He does not ambulate much. He is mostly wheelchair-bound. He can transfer from the bed to the wheelchair. Because of his laying in the bed all the time he has pressure ulcers. His pressure ulcers in the sacral region have healed. But he still has an ongoing pressure ulcer in the right hip. Patient is following with the wound care. As per no trouble swallowing. Pt was previously treated for the following: Severe sepsis Secondary to right lower lobe pneumonia (aspiration pna) Acute hypoxic resp. failure On admission Lactic acid 3.8, WBC 31 temperature 37.8. Heart heart rates in 140s. Procalcitonin 4.6 Received aggressive fluids Received IV cefepime in the ER Respiratory bio fire negative UA negative Sputum cultx - no growth Blood cultx - ngtd wound cultx - posit. as outpt for yeast - currently posit. for missael and proteus Treated with IV Vanco and Zosyn and p.o. Doxy -> on Flagyl and Cefepime, can transition back to po on discharge (switched back to IV with increasing wbc once more). Daptomycin added on 05/16. WBC trending down, pt is afebrile, feeling well, breathing comfortably on RA (05/19) - he would like to be discharged home w/ HH Pt currently on RA and improved. Speech eval d/t concern for aspiration -> c/w aspiration. Met with speech. Right hip pressure ulcer stage III Cx + for missael and pt treated w/ topical antifungal Also + for proteus sensitive to cefepime/Levaquin above Hip x-ray - no acute abnormality Hip MRI ordered on 05/14- no evidence of osteomyelitis Wound care on Flagyl and Cefepime as above Constipation On narcs using frequently Daily docusate, miralax Elevated troponin hs-trop was elevated and downtrended EKG with sinus tachycardia EF 55-60% Borderline LVH and grade I diastolic heart failure Mostly demand ischemia, doubt ACS CKD stage III Presented with creatinine of 1.8 which seems to be around baseline as per [facility] Continue to monitor Hypomagnesemia replace and monitor Hypertension Held amlodipine for severe sepsis initially Resumed, continue Persistently elevated Started on metoprolol 12.5mg daily Ambulatory dysfunction Chronic back pain On pain meds -IV dilaudid discontinued -continue with po tylenol, po dilaudid, consider toradol Wheelchair - bound Can do transfers PT OT when stable recommending rehab Peripheral vascular disease On aspirin and statin, continue GERD Protonix, continue Total Time Total Time Spent Total Time Spent (In Minutes): 40 Discharge Plan Discharge Items Patient Disposition: Home - Home Health Services Reason For Visit: SEVERE SEPSIS, PNEUMONIA, COPD EX Discharge Diagnosis: Sepsis Acute hypoxic respiratory failure Activity: Per Instructions section Non-emergency contact: Primary Care Provider Call non-emergency contact if: you have any medication questions and your symptoms worsen Follow-up/Referrals: [facility] [Other] - 05/25/23 2:40 pm Nora Espinosa MD [Primary Care Provider] - (Date & Time 05/25/2023 11:00 AM Provider Nora Espinosa MD Department General Internal Medicine [facility] ) Diet: Regular Diet Texture: Easy to Chew Liquid Consistency: Argos thick Addtl Attending Provider Instructions: Follow up with your primary care doctor, the appointment was scheduled for you. Also follow up with with wound care clinic. Finish antibiotic as prescribed. It is crucial that you follow aspirations precautions, keep good oral hygiene, thicken liquids as recommended, etc. Pending Studies at Discharge: No Stand-Alone Forms: My [facility], Smoking Cessation Medications and DC Order Prescriptions: New metoprolol succinate 25 mg Tablet Extended Release 24 Hr 12.5 mg PO QAM Qty: 30 0RF guaifenesin [Mucinex] 600 mg Tablet Extended Release 12hr 600 mg PO Q12 Qty: 10 0RF Advanced Probiotic 625 mg (10 billion cell) Capsule 1 cap PO DAILY Qty: 10 0RF sennosides [Senokot] 8.6 mg Tablet 8.6 mg PO QAM Qty: 30 0RF amoxicillin-pot clavulanate 875-125 mg tablet 1 tab PO BID Qty: 5 0RF Continued pantoprazole [Protonix] [address] for susp in packet 40 mg PO BID potassium chloride 10 mEq tablet extended release 10 meq PO DAILY prednisone 10 mg tablet 10 mg PO DAILY thiamine HCl (vitamin B1) 100 mg tablet 100 mg PO DAILY folic acid 1 mg tablet 1 mg PO DAILY multivitamin [Multiple Vitamins] Tablet 1 tab PO DAILY pantoprazole 40 mg Tablet,Delayed Release (Dr/Ec) 40 mg PO BID Qty: 60 0RF aspirin [Ecotrin Low Strength] 81 mg tablet,delayed release (DR/EC) 81 mg PO DAILY Qty: 30 2RF Rx Instructions: always with a full stomach atorvastatin [Lipitor] 20 mg tablet 20 mg PO DAILY Qty: 30 2RF gabapentin [Neurontin] 300 mg capsule See Rx Instructions .ROUTE .COMPLEX Rx Instructions: 300 mg orally; TAKES 300 MG QAM & AFTERNOON, THEN 600 MG QPM. docusate sodium [Colace] 100 mg capsule 100 mg PO BID Qty: 60 0RF amlodipine 10 mg tablet 10 mg PO DAILY Qty: 30 0RF albuterol sulfate 2.5 mg /3 mL (0.083 %) Solution For Nebulization 2.5 mg INHALATION DIRECTED PRN (Reason: Shortness Of Breath Or Wheezing) oxycodone 5 mg tablet 5 mg PO Q6H PRN (Reason: Pain) mecobal-levomefolat Ca-B6 phos 3-35-2 mg Tablet 1 tab PO DAILY Discharge Orders: Discharge Order (Routine); Ordered 05/20/23 Ordered By: Ishaan Raymond Admission Data Admit Date/Time: 05/08/23 07:35 Attending Provider: Ishaan Raymond Admit Provider: Mahesh Campbell Primary Care Provider: Nora Espinosa Other Providers: Stephen Alvarenga Addy; Mahesh Campbell; Kaden Martinez; Sonal Garcia Other Interventions: Discharge Summary Assessment (RN) Last Done: 05/20/23 14:57
[2023-05-20 15:21] VITALS: BP 124/80; PULSE 93; RESP 18; TEMP 98; O2SAT 97
== END 2023-05-20 17:44 | disposition home health service (06) | DRG 871 ==
LOC: ED 05:26 → EDINP 07:35 → SUATTDRO 07:35 → 2S 08:12 → 2N 05-12 18:56

== ENCOUNTER 2023-05-22 15:07 | Inpatient (IN) ==
--- OUTSIDE RECORDS SUMMARY | 2023-05-22 15:12 | External Medical Summary | Summary of Care ---
Author Name Unknown Organization [facility] Address [address] [place] [address] Phone [phone] Care Team Providers Care Shop Estimator Name Role Phone Nora Espinosa MD Primary Care Provider [phone] Reason for Visit * Reason Onset Date Comments Advice 05/16/2023 Encounter Details Date Type Department Care Team (Late st Contact Info) Description 05/16/2023 Telephone General Internal Medicine [facility] [address] [facility] [place] [address] Nora Espinosa MD [address] [facility] [place] [address] Advice Allergies No known active allergiesdocumented as of this encounter (statuses as of 05/19/2023) Medications Medication Sig Dispensed Refills Start Date [...] (chronic kidney disease) stage III ([facility]),Microalbuminu fermin Take 1 Tablet by mouth in the morning. 90 Tablet 3 11/27/2022 Active Folic Acid 1 MG Oral TabletIndications:P rotein-calorie malnutrition, unspecified severity ([facility]) TAKE 1 TABLET BY MOUTH EVERY DAY 90 Tablet 1 12/24/2022 Active Atorvastatin Calcium 20 MG Oral Tablet (Lipitor)Indication s:Dyslipidemia TAKE 1 TABLET BY MOUTH EVERY DAY 90 Tablet 0 03/21/2023 Active NATURAL SUPPLEMENT Take by mouth daily. Metanx for neuropathy in feet 0 Active Tiotropium Grawn Monohydrate 18 MCG Inhalation Capsule (Spiriva HandiHaler)Indicati ons:COPD, group A, by GOLD 2017 classification ([facility] [...] MG Oral Tablet (Deltasone)Indicati ons:PMR (polymyalgia rheumatica) ([facility]) Take 1 Tablet by mouth in the morning. Take with food.. 30 Tablet 0 04/13/2023 Active DuoDERM CGF Dressing ExternalIndications :Pressure injury of right hip, stage 3 ([facility]) Apply in ulcer and change every 2 days . 20 Each 3 04/13/2023 Active oxyCODONE HCl 5 MG Oral Tablet (Oxy IR)Indications:Cerv ical myelopathy ([facility]),Lumbar degenerative disc disease,Osteoarthri tis of spine with radiculopathy, cervical region Take 1 Tablet by mouth every 6 hours as needed for Pain, Severe. 120 Tablet 0 04/25/2023 Active Potassium Chloride Constance ER 10 MEQ Oral Tablet Extended ReleaseIndications: Hypokalemia Take 1 Tablet by mouth in the morning. 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 Patient is currently admitted to [facility] for pneumonia, hypoxia, severe sepsis. When he was in the ER, they submitted a diagnosis of "possible opoid overdose." [facility] gets[facility]ified of this and has to make sure patient is not overdosing on his narcotic pain medication. I was able to answer her questions and she said there will be no restrictions put on this patient's account for his pain meds at this time. * Telephone Encounter - Isela Galicia LPN - 05/17/2023 7:49 AM EDT Sent to wrong office, never seen by Vaibhav Montano * Telephone Encounter - Ebonie Perez OSA - 05/16/2023 4:50 PM EDT Rhina with [facility] called states would like to speak with clinical staff regarding patient possibly abusing pain medications. Return call [phone] documented in this encounter Plan of Treatment Upcoming Encounters Date Type Department Care Team (Late st Contact Info) Description 06/06/2023 3:15 PM EDT Telemedicine Orthopaedics [facility] [address] [facility] [place] [address] Farrukh Toure MD [address] [facility] [place] [address] 06/14/2023 3:00 PM EDT Office Visit Cardiology, [facility] [address] [facility] [place] [address] Ana Lilia Graves CRNP [address] [place] [address] 07/07/2023 3:40 PM EDT Office Visit General Internal Medicine [facility] [address] [facility] [place] [address] Nora Espinosa MD [address] [place] [address] Scheduled Procedures Name Priority Associated Diagnoses Date/Ti [...] 01/14/2030 LUNG CANCER SCREENING - USE SMARTSET [id number] Completed 05/05/2021 AAA Screening Completed 05/20/2021 GARDASIL-HPV IMMUNIZATION SERIES Aged Out No longer eligible based on patient's age to complete this topic Hepatitis B Aged Out No longer eligi ble based on patient's age to complete this topic MENINGOCOCCAL (MENACTRA/MENVEO) Aged Out No longer eligible based on patient's age to complete this topic documented as of this encounter Medical Devices Implanted Type Area Plater Hot Dip Device Identifier Shelf Expiration Date Model / Serial / Lot Clip Quick 2.8mm 230cm - [id number] Implanted:Qty: 1 on 05/01/2020 by Augustin Bearden MD at END[facility]COPY [facility] [employer] 06/04/2022 HX-202UR.A / / 04K Clip Quick 2.8mm 230cm - [id number] Implanted:Qty: 1 on 05/01/2020 by Augustin Bearden MD at [facility]COPY [facility] [employer] 06/04/2022 HX-202UR.A / / 04K Clip Quick 2.8mm 230cm - [id number] Implanted:Qty: 1 on 05/01/2020 by Augustin Bearden MD at [facility]COPY [facility] [employer] 06/04/2022 HX-202UR.A / / 04K Clip Quick 2.8mm 230cm - [id number] Implanted:Qty: 1 on 05/01/2020 by Augustin Bearden MD at [facility]COPY [facility] [employer] 06/04/2022 HX-202UR.A / / 04K Clip Quick 2.8mm 230cm - [id number] Implanted:Qty: 1 on 05/01/2020 by Augustin Bearden MD at ENDOSCOPY [facility] [employer] 06/04/2022 HX-202UR.A / / 04K Clip Quick 2.8mm 230cm - [id number] Implanted:Qty: 1 on 05/01/2020 by Augustin Bearden MD at ENDOSCOPY [facility] [employer] 06/04/2022 HX-202UR.A / / 04K Clip Quick 2.8mm 230cm - [id number] Implanted:Qty: 1 on 05/01/2020 by Augustin Bearden [...] and were consensually agreed upon. Care Teams Shop Estimator Relationship Specialty Start Date End Date Nora Espinosa MD [address] [facility] [place], [place] [address] PCP - General Internal Medicine 04/04/23 documented as of this encounter
--- OUTSIDE RECORDS SUMMARY | 2023-05-22 15:12 | External Medical Summary | Summary of Care ---
Author Name Unknown Organization [facility] Address [address] [place] [address] Phone [phone] Care Team Providers Care Piano Regulator Name Role Phone Nora Espinosa MD Primary Care Provider [phone] Reason for Visit * Reason Onset Date Comments Advice 05/16/2023 Encounter Details Date Type Department Care Team (Late st Contact Info) Description 05/16/2023 Telephone General Internal Medicine [facility] [address] [place] [address] Nora Espinosa MD [address] [place] [address] Advice Allergies No known active allergiesdocumented as of this encounter (statuses as of 05/18/2023) Medications Medication Sig Dispensed Refills Start Date [...] with CKD (chronic kidney disease) stage III ([facility]),Microalbuminu fermin Take 1 Tablet by mouth in the morning. 90 Tablet 3 11/27/2022 Active Folic Acid 1 MG Oral TabletIndications:P rotein-calorie malnutrition, unspecified severity ([facility]) TAKE 1 TABLET BY MOUTH EVERY DAY 90 Tablet 1 12/24/2022 Active Atorvastatin Calcium 20 MG Oral Tablet (Lipitor)Indication s:Dyslipidemia TAKE 1 TABLET BY MOUTH EVERY DAY 90 Tablet 0 03/21/2023 Active NATURAL SUPPLEMENT Take by mouth daily. Metanx for neuropathy in feet 0 Active Tiotropium [place] Monohydrate 18 MCG Inhalation Capsule (Spiriva HandiHaler)Indicati ons:COPD, group A, by GOLD 2017 classification ([facility]) Inhale 1 Capsule by mouth in the [...] MG Oral Tablet (Deltasone)Indicati ons:PMR (polymyalgia rheumatica) ([facility]) Take 1 Tablet by mouth in the morning. Take with food.. 30 Tablet 0 04/13/2023 Active DuoDERM CGF Dressing ExternalIndications :Pressure injury of right hip, stage 3 ([facility]) Apply in ulcer and change every 2 days . 20 Each 3 04/13/2023 Active oxyCODONE HCl 5 MG Oral Tablet (Oxy IR)Indications:Cerv ical myelopathy ([facility]),Lumbar degenerative disc disease,Osteoarthri tis of spine with radiculopathy, cervical region Take 1 Tablet by mouth every 6 hours as needed for Pain, Severe. 120 Tablet 0 04/25/2023 Active Potassium Chloride Constance ER 10 MEQ Oral Tablet Extended ReleaseIndications: Hypokalemia Take 1 Tablet by mouth in the morning. 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 Patient is currently admitted to [facility] for pneumonia, hypoxia, severe sepsis. When he [...] patient possibly abusing pain medications. Return call [phone] documented in this encounter Plan of Treatment Upcoming Encounters Date Type Department Care Team (Late st Contact Info) Description 06/06/2023 3:15 PM EDT Telemedicine Orthopaedics [facility] [address] [address] Farrukh Toure MD [address] [address] 06/14/2023 3:00 PM EDT Office Visit Cardiology, [facility] [address] [place] [address] Ana Lilia Graves CRNP [address] [place] [address] 07/07/2023 3:40 PM EDT Office Visit General Internal Medicine [facility] [address] [facility] [place] [address] Nora Espinosa MD [address] [facility] [place] [address] Scheduled Procedures Name Priority Associated Diagnoses Date/Ti [...] 01/14/2030 LUNG CANCER SCREENING - USE SMARTSET 42523 Completed 05/05/2021 AAA Screening Completed 05/20/2021 GARDASIL-HPV IMMUNIZATION SERIES Aged Out No longer eligible based on patient's age to complete this topic Hepatitis B Aged Out No longer eligi ble based on patient's age to complete this topic MENINGOCOCCAL (MENACTRA/MENVEO) Aged Out No longer eligible based on patient's age to complete this topic documented as of this encounter Medical Devices Implanted Type Area Inhalation Therapy Aides Teacher Device Identifier Shelf Expiration Date Model / Serial / Lot Clip Quick 2.8mm 230cm - [id number] Implanted:Qty: 1 on 05/01/2020 by Augustin Bearden MD at ENDOSCOPY [facility] [employer] 06/04/2022 HX-202UR.A / / 04K Clip Quick 2.8mm 230cm - [id number] Implanted:Qty: 1 on 05/01/2020 by Augustin Bearden MD at ENDOSCOPY [facility] [employer] 06/04/2022 HX-202UR.A / / 04K Clip Quick 2.8mm 230cm - [id number] Implanted:Qty: 1 on 05/01/2020 by Augustin Bearden MD at ENDOSCOPY [facility] [employer] 06/04/2022 HX-202UR.A / / 04K Clip Quick 2.8mm 230cm - [id number] Implanted:Qty: 1 on 05/01/2020 by Augustin Bearden MD at ENDOSCOPY [facility] [employer] 06/04/2022 HX-202UR.A / / 04K Clip Quick 2.8mm 230cm - [id number] Implanted:Qty: 1 on 05/01/2020 by Augustin Bearden MD at ENDOSCOPY [facility] [employer] 06/04/2022 HX-202UR.A / / 04K Clip Quick 2.8mm 230cm - [id number] Implanted:Qty: 1 on 05/01/2020 by Augustin Bearden MD at ENDOSCOPY [facility] [employer] 06/04/2022 HX-202UR.A / / 04K Clip Quick 2.8mm 230cm - [id number] Implanted:Qty: 1 on 05/01/2020 by Augustin Bearden MD at ENDOSCOPY [facility] [employer] 06/04/2022 HX-202UR.A / / 04K [...] and were consensually agreed upon. Care Teams Piano Regulator Relationship Specialty Start Date End Date Nora Espinosa MD [address] [place] [address] PCP - General Internal Medicine 04/04/23 documented as of this encounter
--- OUTSIDE RECORDS SUMMARY | 2023-05-22 15:12 | External Medical Summary | Summary of Care ---
Author Name Unknown Organization [facility] Address [address] [place] [address] Phone [phone] Care Team Providers Care Plant Wire Chief Name Role Phone Nora Espinosa MD Primary Care Provider [phone] Reason for Visit * Reason Onset Date Comments Advice 05/10/2023 Encounter Details Date Type Department Care Team (Late st Contact Info) Description 05/10/2023 Telephone General Internal Medicine [facility] [place] [address] [facility] [place] [address] Nora Espinosa MD [address] [facility] [place] [address] Advice Allergies No known active allergiesdocumented as [...] with CKD (chronic kidney disease) stage III ([facility]),Microalbuminu fermin Take 1 Tablet by mouth in the morning. 90 Tablet 3 11/27/2022 Active Folic Acid 1 MG Oral TabletIndications:P rotein-calorie malnutrition, unspecified severity ([facility]) TAKE 1 TABLET BY MOUTH EVERY DAY 90 Tablet 1 12/24/2022 Active Atorvastatin Calcium 20 MG Oral Tablet (Lipitor)Indication s:Dyslipidemia TAKE 1 TABLET BY MOUTH EVERY DAY 90 Tablet 0 03/21/2023 Active NATURAL SUPPLEMENT Take by mouth daily. Metanx for neuropathy in feet 0 Active Tiotropium [place] Monohydrate 18 MCG Inhalation Capsule (Spiriva HandiHaler)Indicati ons:COPD, group A, by GOLD 2017 classification ([facility]) Inhale 1 Capsule by mouth in the [...] MG Oral Tablet (Deltasone)Indicati ons:PMR (polymyalgia rheumatica) ([facility]) Take 1 Tablet by mouth in the morning. Take with food.. 30 Tablet 0 04/13/2023 Active DuoDERM CGF Dressing ExternalIndications :Pressure injury of right hip, stage 3 ([facility]) Apply in ulcer and change every 2 days . 20 Each 3 04/13/2023 Active oxyCODONE HCl 5 MG Oral Tablet (Oxy IR)Indications:Cerv ical myelopathy ([facility]),Lumbar degenerative disc disease,Osteoarthri tis of spine with [...] myelopathy 10/09/2021 Coronary artery disease invo lving [place] coronary artery without angina pectoris 10/08/2021 DAVF [...] Encounter - Nora Espinosa MD - 05/19/2023 3:24 PM EDT It seems case resolved See other TE * Telephone Encounter - Ashley Wynn LPN - 05/12/2023 6:46 PM EST Form received. Placed in Dr. Espinosa's mailbox. * Telephone Encounter - Nina Hernandez PHARM Tech - 05/12/2023 1:36 PM EST Rhina Daniel from [employer] is calling in regards to previous message. Please return her call at [phone] to discuss pt's pain management and pt's opioid medications. If 11 page document was received by office, please fax back to [phone] [facility]. Thank you, Nina Hernandez, Director Operating [facility] ([facility]) (Formerly Telepharmacy) 05/12/2023,1:39 PM * Telephone Encounter - Patrick Palmer OSA - 05/10/2023 4:34 PM EST In Regards to Pt Opiod medication. Rhina is faxing a 11 question document that will need to be filled out and faxed back as soon as possible Fax# #[phone] Please call if have any questions or concerns # [phone] documented in this encounter Plan of Treatment Upcoming Encounters Date Type Department Care Team (Late st Contact Info) Description 06/06/2023 3:15 PM EDT Telemedicine Orthopaedics [facility] [address] [place] [address] Farrukh Toure MD [address] [place] [address] 06/14/2023 3:00 PM EDT Office Visit Cardiology, [facility] [address] [facility] [place] [address] Ana Lilia Graves CRNP [address] [place] [address] 07/07/2023 3:40 PM EDT Office Visit General Internal Medicine [facility] [address] [facility] [place] [address] Nora Espinosa MD [address] [facility] [place], [place] [address] Scheduled Procedures Name Priority Associated Diagnoses Date/Ti [...] 01/14/2030 LUNG CANCER SCREENING - USE SMARTSET 28666 Completed 05/05/2021 AAA Screening Completed 05/20/2021 GARDASIL-HPV IMMUNIZATION SERIES Aged Out No longer eligible based on patient's age to complete this topic Hepatitis B Aged Out No longer eligi ble based on patient's age to complete this topic MENINGOCOCCAL (MENACTRA/MENVEO) Aged Out No longer eligible based on patient's age to complete this topic documented as of this encounter Medical Devices Implanted Type Area Chemicals Fermentation Operator Device Identifier Shelf Expiration Date Model / Serial / Lot Clip Quick 2.8mm 230cm - [id number] Implanted:Qty: 1 on 05/01/2020 by Augustin Bearden MD at ENDOSCOPY [facility] [employer] 06/04/2022 HX-202UR.A / / 04K Clip Quick 2.8mm 230cm - [id number] Implanted:Qty: 1 on 05/01/2020 by Augustin Bearden MD at ENDOSCOPY [facility] [employer] 06/04/2022 HX-202UR.A / / 04K Clip Quick 2.8mm 230cm - [id number] Implanted:Qty: 1 on 05/01/2020 by Augustin Bearden MD at ENDOSCOPY [facility] [employer] 06/04/2022 HX-202UR.A / / 04K Clip Quick 2.8mm 230cm - [id number] Implanted:Qty: 1 on 05/01/2020 by Augustin Bearden MD at ENDOSCOPY [facility] [employer] 06/04/2022 HX-202UR.A / / 04K Clip Quick 2.8mm 230cm - [id number] Implanted:Qty: 1 on 05/01/2020 by Augustin Bearden MD at ENDOSCOPY [facility] [employer] 06/04/2022 HX-202UR.A / / 04K Clip Quick 2.8mm 230cm - [id number] Implanted:Qty: 1 on 05/01/2020 by Augustin Bearden MD at ENDOSCOPY [facility] [employer] 06/04/2022 HX-202UR.A / / 04K Clip Quick 2.8mm 230cm - [id number] Implanted:Qty: 1 on 05/01/2020 by Augustin Bearden MD at ENDOSCOPY [facility] [employer] 06/04/2022 HX-202UR.A / / [...] and were consensually agreed upon. Care Teams Plant Wire Chief Relationship Specialty Start Date End Date Nora Espinosa MD [address] [place] [address] PCP - General Internal Medicine 04/04/23 documented as of this encounter
--- OUTSIDE RECORDS SUMMARY | 2023-05-22 15:13 | External Medical Summary | Summary of Care ---
Author Name Unknown Organization [facility] Address [address] [place] [address] Phone [phone] Care Team Providers Care Fern Cutter Name Role Phone Nora Espinosa MD Primary Care Provider [phone] Reason for Visit * Reason Onset Date Comments Medication Refill 05/16/2023 Encounter Details Date Type Department Care Team (Late st Contact Info) Description 05/16/2023 Refill General Internal Medicine [facility] [address] [facility] [place] [address] Nora Espinosa MD [address] [place] [address] Hypokalemia Allergies No known active allergiesdocumented as of this encounter (statuses as of 05/17/2023) Medications Medication Sig Dispensed Refills Start Date [...] MG Oral Capsule (Colace)Indications :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 180 Capsule 1 10/29/2022 Active Lisinopril 10 MG Oral Tablet (Prinivil)Indicatio ns:Benign hypertension with CKD (chronic kidney disease) stage III ([facility]),Microalbuminu fermin Take 1 Tablet by mouth in the morning. 90 Tablet 3 11/27/2022 Active Folic Acid 1 MG Oral TabletIndications:P rotein-calorie malnutrition, unspecified severity ([facility]) TAKE 1 TABLET BY MOUTH EVERY DAY 90 Tablet 1 12/24/2022 Active Atorvastatin Calcium 20 MG Oral Tablet (Lipitor)Indication s:Dyslipidemia TAKE 1 TABLET BY MOUTH EVERY DAY 90 Tablet 0 03/21/2023 Active NATURAL SUPPLEMENT Take by mouth daily. Metanx for neuropathy in feet 0 Active Tiotropium [place] Monohydrate 18 MCG Inhalation Capsule (Spiriva HandiHaler)Indicati ons:COPD, group A, by GOLD 2017 classification ([facility]) Inhale 1 Capsule by mouth in [...] MG Oral Tablet (Deltasone)Indicati ons:PMR (polymyalgia rheumatica) ([facility]) Take 1 Tablet by mouth in the morning. Take with food.. 30 Tablet 0 04/13/2023 Active DuoDERM CGF Dressing ExternalIndications :Pressure injury of right hip, stage 3 ([facility]) Apply in ulcer and change every 2 days . 20 Each 3 04/13/2023 Active oxyCODONE HCl 5 MG Oral Tablet (Oxy IR)Indications:Cerv ical myelopathy ([facility]),Lumbar degenerative disc disease,Osteoarthri tis of spine with radiculopathy, cervical region Take 1 Tablet by mouth every 6 hours as needed for Pain, Severe. 120 Tablet 0 04/25/2023 Active Potassium Chloride Constance ER 10 MEQ Oral Tablet Extended ReleaseIndications: Hypokalemia Take 1 Tablet by mouth in the morning. 90 Tablet 1 05/17/2023 Active Potassium Chloride Constance ER 10 MEQ Oral Tablet Extended ReleaseIndications: Hypokalemia Take 1 Tablet by mouth in the morning. 30 Tablet 5 04/13/2023 4 Discontinu ed(Refill) documented as of this encounter (statuses as of 05/17/2023) Active Problems Problem Noted Date Diagnosed Date COPD, group A, by GOLD 2017 classification 11/15 Overview: Per COPD GOLD Classification Protein-calorie malnutrition 11/11/2022 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 Cervical myelopathy 10/09/2021 Coronary artery disease invo lving [place] coronary artery without angina pectoris 10/08/2021 DAVF [...] as of this encounter (statuses as of 05/17/2023) Resolved Problems Problem Noted Date Diagnosed Date [...] as of this encounter (statuses as of 05/17/2023) Immunizations Name Administration Dates Next Due COVID-19 [...] Telephone Encounter - Nora Espinosa MD - 05/17/2023 3:21 PM EDTSigned Prescriptions: Disp Refills Potassium Chloride Constance ER 10 MEQ Oral Tab*90 Tab*1 Sig: Take 1 Tablet by mouth in the morning. Authorizing Provider: NORA ESPINOSA * Telephone Encounter - Niki Sim LPN - 05/17/2023 12:25 PM EDTPending Prescriptions: Disp Refills Potassium Chloride Constance ER 10 MEQ Oral Tab*90 Tab*1 Sig: Take 1 Tablet by mouth in the morning. * Telephone Encounter - Jennifer Jerez OSA - 05/16/2023 5:41 PM EDT 90 day Did you pend patient's preferred pharmacy and medication before forwarding?yes Pharmacy: [id number] [address] [place] [address] Pending Prescriptions: Disp Refills Potassium Chloride Constance ER 10 MEQ Oral Ta*30 Tab*5 Sig: Take 1 Tablet by mouth in the morning. Last Visit: 03/31/2023 (in office), Visit date not found (telemedicine) Next Visit: 07/07/2023 If no future appointments scheduled, and last appointment is greater than a year ago, please schedule patient for a follow-up appointment Last date the medication was ordered: 04/13/23 Is this request for a controlled substance?No [...] Description 06/06/2023 3:15 PM EDT Telemedicine Orthopaedics [facility] [address] [address] Farrukh Toure MD [address] [address] 06/14/2023 3:00 PM EDT Office Visit Cardiology, [facility] [address] [address] Ana Lilia Graves CRNP [address] [place] [address] 07/07/2023 3:40 PM EDT Office Visit General Internal Medicine [facility] [place] [address] [facility] [place] [address] Nora Espinosa MD [address] [facility] [place] [address] Scheduled Procedures Name Priority Associated Diagnoses Date/Ti [...] 01/14/2030 LUNG CANCER SCREENING - USE SMARTSET 64707 Completed 05/05/2021 AAA Screening Completed 05/20/2021 GARDASIL-HPV IMMUNIZATION SERIES Aged Out No longer eligible based on patient's age to complete this topic Hepatitis B Aged Out No longer eligi ble based on patient's age to complete this topic MENINGOCOCCAL (MENACTRA/MENVEO) Aged Out No longer eligible based on patient's age to complete this topic documented as of this encounter Medical Devices Implanted Type Area Supervisor Safety Deposit Device Identifier Shelf Expiration Date Model / Serial / Lot Clip Quick 2.8mm 230cm - [id number] Implanted:Qty: 1 on 05/01/2020 by Augustin Bearden MD at ENDOSCOPY [facility] [employer] 06/04/2022 HX-202UR.A / / 04K Clip Quick 2.8mm 230cm - [id number] Implanted:Qty: 1 on 05/01/2020 by Augustin Bearden MD at ENDOSCOPY [facility] [employer] [facility] 06/04/2022 HX-202UR.A / / 04K Clip Quick 2.8mm 230cm - [id number] Implanted:Qty: 1 on 05/01/2020 by Augustin Bearden MD at ENDOSCOPY [facility] [employer] [facility] 06/04/2022 HX-202UR.A / / 04K Clip Quick 2.8mm 230cm - [id number] Implanted:Qty: 1 on 05/01/2020 by Augustin Bearden MD at ENDOSCOPY [facility] [employer] 06/04/2022 HX-202UR.A / / 04K Clip Quick 2.8mm 230cm - [id number] Implanted:Qty: 1 on 05/01/2020 by Augustin Bearden MD at ENDOSCOPY [facility] [employer] 06/04/2022 HX-202UR.A / / 04K Clip Quick 2.8mm 230cm - [id number] Implanted:Qty: 1 on 05/01/2020 by Augustin Bearden MD at ENDOSCOPY [facility] [employer] 06/04/2022 HX-202UR.A / / 04K Clip Quick 2.8mm 230cm - [id number] Implanted:Qty: 1 on 05/01/2020 by Augustin Bearden MD at ENDOSCOPY [facility] [employer] 06/04/2022 HX-202UR.A / / [id number] documented as of this encounter Visit Diagnoses Diagnosis Hypokalemia Hypopotassemia documented in this encounter Advance Directives Latest [...] and were consensually agreed upon. Care Teams Fern Cutter Relationship Specialty Start Date End Date Nora Espinosa MD [address] [place] [address] PCP - General Internal Medicine 04/04/23 documented as of this encounter
--- OUTSIDE RECORDS SUMMARY | 2023-05-22 15:13 | External Medical Summary | Summary of Care ---
Author Name Unknown Organization [facility] Address [address] [place] [address] Phone [phone] Care Team Providers Care Lathe Hand Name Role Phone Nora Espinosa MD Primary Care Provider [phone] Reason for Referral * Evaluate & Treat - Unlimited Visits (Within 10 days (routine)) - Pending Review Specialty Diagnoses / Procedures Referred By Contac t Referred To Contact Wound Care Diagnoses Pressure injury of right hip, stage 3 ([facility]) Nora Espinosa MD [address] [place] [address] Referral ID Status Reason Start Date Expiration Date Visits Requested Visits Authorized [id number] Pending Review Specialty Services Required 04/13/[phone] Question Answer Referral Priority Within 10 days (routine) Where should this appointment be scheduled? [facility] Comments Assess for: Present over 30 days, Hx of wound healing problem, and Other: pressure ulcer on RT hip with lump around it . US and x-ray normal * Evaluate & Treat - Unlimited Visits (Within 10 days (routine)) - Pending Review Specialty Diagnoses / Procedures Referred By Contac t Referred To Contact Rheumatology Diagnoses PMR (polymyalgia rheumatica) ([facility]) Nora Espinosa MD [address] [place] [address] Referral ID Status Reason Start Date Expiration Date Visits Requested Visits Authorized [id number] Pending Review Specialty Services Required 04/13/2023 [id number] Question Answer Referral Priority Within 10 days (routine) Where should this appointment be scheduled? [facility] Reason for referral: Inflammatory arthritis/Autoimmune or Connective Tissue Diseases Comments Generalized weakness , high sed rate at 66 , guanaco and ance negative - no webster . ? PMR * Evaluate & Treat - Unlimited Visits (Within 10 days (routine)) - Pending Review Specialty Diagnoses / Procedures Referred By Lizet meehan Referred To Contact Nephrology Diagnoses Stage 3b chronic kidney disease (HCC) Persistent proteinuria Nora Espinosa MD [address] [place] [address] Referral ID Status Reason Start Date Expiration Date Visits Requested Visits Authorized [id number] Pending Review Specialty Services Required 04/13/[phone] Question Answer Referral Priority Within 10 days (routine) Where should this appointment be scheduled? [facility] What condition is this patient being seen for? 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 180 Capsule 1 10/29/2022 Active Lisinopril 10 MG Oral Tablet (Prinivil)Indicatio ns:Benign hypertension with CKD (chronic kidney disease) stage III ([facility]),Microalbuminu fermin Take 1 Tablet by mouth in the morning. 90 Tablet 3 11/27/2022 Active Folic Acid 1 MG Oral TabletIndications:P rotein-calorie malnutrition, unspecified severity ([facility]) TAKE 1 TABLET BY MOUTH EVERY DAY 90 Tablet 1 12/24/2022 Active Atorvastatin Calcium 20 MG Oral Tablet (Lipitor)Indication s:Dyslipidemia TAKE 1 TABLET BY MOUTH EVERY DAY 90 Tablet 0 03/21/2023 Active NATURAL SUPPLEMENT Take by mouth daily. Metanx for neuropathy in feet 0 Active Tiotropium [place] Monohydrate 18 MCG Inhalation Capsule (Spiriva HandiHaler)Indicati ons:COPD, group A, by GOLD 2017 classification ([facility]) Inhale 1 Capsule by mouth in the [...] MG Oral Tablet (Deltasone)Indicati ons:PMR (polymyalgia rheumatica) ([facility]) Take 1 Tablet by mouth in the morning. Take with food.. 30 Tablet 0 04/13/2023 Active Potassium Chloride Constance ER 10 MEQ Oral Tablet Extended ReleaseIndications: Hypokalemia Take 1 Tablet by mouth in the morning. 30 Tablet 5 04/13/2023 Active DuoDERM CGF Dressing ExternalIndications :Pressure injury of right hip, stage 3 ([facility]) Apply in ulcer and change every 2 days . 20 Each 3 04/13/2023 Active oxyCODONE HCl 5 MG Oral Tablet (Oxy IR)Indications:Cerv ical myelopathy (HCC),Lumbar degenerative disc disease,Osteoarthri tis of spine with radiculopathy, cervical region Take 1 Tablet by mouth every 6 hours as needed for Pain, Severe. 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 Verbalized understanding. Patient has previously gone to [facility] and would like referral sent there. Scheduling-please assist with appointments and sending referral. * Telephone Encounter - Nora Espinosa MD - 04/13/2023 1:11 PM EST Suggest to apply duoderm in that area and change every 2 days . Also wound care consult . All ordered * Telephone Encounter - Ashley Wynn LPN - 04/13/2023 12:55 PM EST Patient and notified of message below. Verbalized understanding. Lump is about the same. It is still very hard. The center is a red iqugmiut and some of the skin has peeled off. He only has pain when he sleeps on that side, which is all the time. is asking how to treat this? Agreeable to starting KCL and prednisone and seeing nephro and rheum. All pended. * Telephone Encounter - Ashley Wynn LPN - 04/13/2023 12:46 PM EST ----- Message from Nora Espinosa MD sent at 04/12/2023 8:25 PM EST ----- Duplex of rt hip at the lump negative so ulcer seems pressure ulcer from sleeping on that side . Check status ? Labs - potassium still low. Start KCL 10 1 tab daily and repeat BMP in 1 week Kidney function same but protein leaking in urine worsening . Suggest nephro consult for eval Sed rate continues to be very high but autoimmune workup negative and blood culture negative . Withhis current symptoms and elevated WBC count suspect PMR . Start prednisone 10 mg daily in am with food . Also rheum consult for eval to make sure. Let me know documented in this encounter Plan of Treatment Upcoming Encounters Date Type Department Care Team (Late st Contact Info) Description 06/06/2023 3:15 PM EDT Telemedicine Orthopaedics [facility] [address] [place] [id number] Farrukh Toure MD [address] [place] [address] 06/14/2023 3:00 PM EDT Office Visit Cardiology, [facility] [address] [place] [address] Ana Lilia Graves CRNP [address] [place] [id number] 07/07/2023 3:40 PM EDT Office Visit General Internal Medicine [facility] [place] [address] [place] [id number] Nora Espinosa MD [address] [place] [id number] Scheduled Orders Name Type Priority Associated Diagnoses Orde r Schedule BASIC METABOLIC PANEL Lab Routine Hypokalemia Expected: 04/20/2023 (Approximate), Expires: 04/12/2024 Scheduled Procedures Name Priority Associated Diagnoses Date/Ti me ESOPHAGOGASTRODUODENOSCOPY ( EGD), FLEXIBLE, TRANSORAL, DIAGNOSTIC Recall Adenomatous duodenal polyp COLONOSCOPY FLEXIBLE PROXIMAL DIAGNOSTIC Recall History of colon polyps Scheduled Referrals Name Type Priority Associated Diagnoses Orde r Schedule NEPHROLOGY REFERRAL OP Referral Within 10 days (routine) Stage 3b chronic kidney disease (HCC) Persistent proteinuria Ordered: 04/13/2023 RHEUMATOLOGY REFERRAL OP Referral Within 10 days (routine) PMR (polymyalgia rheumatica) (HCC) Ordered: 04/13/2023 WOUND CARE REFERRAL OP Referral Within 10 days (routine) Pressure injury of right hip, stage 3 (HCC) Ordered: 04/13/2023 Health Maintenance Due Date Last Done Comments [...] 01/14/2030 LUNG CANCER SCREENING - USE SMARTSET [id number] Completed 05/05/2021 AAA Screening Completed 05/20/2021 GARDASIL-HPV [...] encounter Medical Devices Implanted Type Area Operations Engineer Device Identifier Shelf Expiration Date Model / Serial / Lot Clip Quick 2.8mm 230cm - [id number] Implanted:Qty: 1 on 05/01/2020 by Augustin Bearden MD at [facility] [employer] 06/04/2022 HX-202UR.A / / 04K Clip Quick 2.8mm 230cm - [id number] Implanted:Qty: 1 on 05/01/2020 by Augustin Bearden MD at [facility] [employer] 06/04/2022 HX-202UR.A / / 04K Clip Quick 2.8mm 230cm - [id number] Implanted:Qty: 1 on 05/01/2020 by Augustin Bearden MD at [facility] [employer] 06/04/2022 HX-202UR.A / / 04K Clip Quick 2.8mm 230cm - [id number] Implanted:Qty: 1 on 05/01/2020 by Augustin Bearden MD at [facility] [employer] 06/04/2022 HX-202UR.A / / 04K Clip Quick 2.8mm 230cm - [id number] Implanted:Qty: 1 on 05/01/2020 by Augustin Bearden MD at [facility] [employer] 06/04/2022 HX-202UR.A / / 04K Clip Quick 2.8mm 230cm - [id number] Implanted:Qty: 1 on 05/01/2020 by Augustin Bearden MD at [facility] [employer] 06/04/2022 HX-202UR.A / / 04K Clip Quick 2.8mm 230cm - [id number] Implanted:Qty: 1 on 05/01/2020 by Augustin Bearden MD at [facility] [employer] 06/04/2022 HX-202UR.A / / [id number] documented as of this encounter Visit Diagnoses Diagnosis Pressure injury of right hip, stage 3 (HCC)- Primary PMR (polymyalgia rheumatica) (HCC) Polymyalgia rheumatica Stage 3b chronic kidney disease (HCC) Persistent proteinuria Proteinuria Hypokalemia Hypopotassemia documented in this encounter Advance [...] and were consensually agreed upon. Care Teams Lathe Hand Relationship Specialty Start Date End Date Nora Espinosa MD [address] [place] [address] PCP - General Internal Medicine 04/04/23 documented as of this encounter
[2023-05-22 15:59] LABS: Basophils # (auto) 0.19 K/uL (0.00-0.20); Eosinophils # (auto) 0.17 K/uL (0.00-0.50); Eosinophils % (auto) 0.9 %; Hematocrit (blood only) 45.1 % (42.0-52.0); Hemoglobin 14.5 g/dl (14.0-18.0); Immature Granulocytes % (auto) 1.6 %; Lymphocytes # (auto) 2.93 K/uL (1.20-3.40); Lymphocytes % (auto) 15.2 %; Mean Corpuscular Hemoglobin 29.3 pg (25.0-34.0); Mean Corpuscular Hgb Conc 32.2 g/dL (32.0-36.0); Mean Corpuscular Volume 91.1 fL (80.0-100.0); Mean Platelet Volume 10.2 fL (9.4-12.4); Monocytes # (auto) 1.62 K/uL (0.11-0.59); Monocytes % (auto) 8.4 %; Neutrophils # (auto) 14.06 K/uL (1.40-6.50); Neutrophils % (auto) 72.9 %; Platelet Count 479 K/uL (130-400); RDW Coefficient of Variation 16.2 % (11.5-14.5); RDW Standard Deviation 53.8 fL (36.4-46.3); Red Blood Count 4.95 M/uL (4.70-6.10); White Blood Count 19.27 K/ul (4.8-10.8)
[2023-05-22 16:41] LABS: Potassium 4.2 mmol/L (3.5-5.1)
[2023-05-22] MEDS: HYDROmorphone INJ 0.5 MG/0.5 ML SYR IV PRN ×2 (17:04→23:57)
[2023-05-22] MEDS: ONDANSETRON INJ 2 MG/ML 2 ML VIAL IV STA (17:04)
[2023-05-22 17:16] LABS: Albumin Level 3.9 gm/dl (3.4-5.0); BUN Creatinine Ratio 16.1 (10-20); Bilirubin,Total 0.9 mg/dl (0.2-1.0); Est GFR (African American) 40.6 ml/min; Total Protein 7.9 gm/dl (6.0-8.3); Troponin I High Sensitivity 8.6 pg/ml (0-20)
[2023-05-22 17:47] LABS: Appearance Urine Clear (Clear); Bacteria Urine Automated Negative (Negative); Bilirubin Urine Negative (Negative); Blood Urine 1+ (Negative); Color Urine Yellow; Epithelial Cell Urine Auto >30 /lpf (0-5); Glucose Urine UA Negative (Negative); Ketones Urine Negative (Negative); Leukocyte Esterase Urine Negative (Negative); Nitrite Urine Negative (Negative); Protein Urine 3+ (Negative); RBC Urine Automated 0-4 /hpf (0-4); Specific Gravity Urine 1.015 (1.000-1.030); Urobilinogen Urine Negative (Negative); pH Urine 5.5 (4.5-7.5)
[2023-05-22] MEDS: PHENYLEPHRINE HCL 10 MG/ML VIAL ITC ONE (17:49)
[2023-05-22] MEDS: LIDOCAINE 1% LOCAL 20 ML VIAL ONE (18:17)
--- NOTE | 2023-05-22 18:36 | CT Scan Report ---
CT pelvis wo con CT DOSE: 283.15 mGy.cm CLINICAL HISTORY: priapism, groin erythema TECHNIQUE: Multiaxial CT images of the pelvis are performed without intravenous contrast and reformat warren in the sagittal and coronal plane. A dose lowering technique was utilized adhering to the princi ples of CASSIDY. COMPARISON STUDY: Abdomen and pelvis CT 11/15/2019. FINDINGS: There is a 4.0 x 3.2 x 2.5 cm hypodense structure within the right groin which appears to r epresent a high riding/undescended right testis within the right inguinal canal. No inguinal lymphade nopathy. Mild bladder wall thickening. This is likely chronic from the mildly enlarged prostate gland . There are few punctate calculi noted. No loculated fluid collections to suggest an abscess. No pelv ic lymphadenopathy or pelvic free fluid. The visualized loops of bowel show no wall thickening or obs truction. Normal appendix. No evidence for an inguinal hernia. The left testis is likely located with in the scrotum. No acute fractures identified. IMPRESSION: 1. There is a 4.0 x 3.2 x 2.5 cm hypodense structure within the right groin which appears to represen t a high riding/undescended right testis within the right inguinal canal. 2. A few punctate bladder calculi. ACT 112: Negative or not required by law. Electronically signed by: Jose Rafael Noe M.D. 05/22/2023 6:33 PM
[2023-05-22 20:05] LABS: Base Excess ABG -16.9 mEq/L (-9-1.8); HCO3 ABG 14 mmol/L (19-24); PCO2 ABG 56 mmHg (35-46); PO2 ABG 38 mmHg (80-95)
[2023-05-22 20:07] LABS: Oxygen Saturation ABG 64.6 % (90-95)
[2023-05-22] MEDS: cefTRIAXone SODIUM 2,000 MG/50 ML BAG IV STA (20:11)
--- NOTE | 2023-05-22 20:41 | Urology Consultation ---
Date of Consultation May 22, 2023 Assessment & Plan (1) Priapism: (2) Stage III pressure ulcer of right hip: (3) Demyelinating disease: (4) Intractable back pain: (5) Complicated UTI (urinary tract infection): (6) Stage II pressure ulcer of right buttock: (7) COPD (chronic obstructive pulmonary disease): (8) Bladder stones: (9) Bilateral kidney stones: Plan New patient seen in the ER with significant priapism. Patient developed issues greater than 24 hours prior. Unsure of the exact start time. Has not had detumescence of the penis in that timeframe. Had that worsened with considerable development of major pain and discomfort. It was also developing erythematous and edematous changes around the penis that cause major concern patient family. Patient was seen in the ER and immediately assessed. Due to the complex nature of the patient's medical and surgical history as well as his significant other comorbidities and the unusual presentation patient had undergone CT imaging of the pelvis. Full report had not been available at the initial assessment report has since come back. This was reviewed the imaging itself was reviewed interpreted by myself. No considerable or obvious finding consistent with major vascular issue in the groin region. Does have signs of significant decubitus wounds of the pelvic region on the right side and posterior. Please see full report for radiology interpretation. Patient vitals have remained stable throughout the evaluation, the procedure and post procedure. No significant tachycardia. Blood pressure has remained stable at 144/79. Pulse of 68. Respirations 20. Temp was 36.6. No significant fever throughout the presentation in the ER. Was satting 98% on room air without major issue. No significant tachypnea or other problems. No chest pains or other major problems. Patient's white count was found to be markedly elevated 19.27. He does have issues with chronically elevated white count. Creatinine was 1.92. Has history of DREA with CKD. On previous admission patient's creatinine at 1.81. Hemoglobin was stable at 14.5. An ABG had been taken during the procedure currently penile blood was consistent with ischemic priapism. pH was found to be less than 7. All labs and vitals were reviewed please see HPI plan section for pertinent values or the full report on the patient medical records. Patient complicated medical and surgical history was reviewed and summarized above. Patient's complicated issues including recent hospitalization for severe pneumonia with sepsis. Was reviewed. Patient had also been placed on antibiotics after discharge however they had stopped this over the last day due to increasing GI issues. Patient issues have been largely due to loose stools and major problems. Reviewed extensively options with patient and family. Discussed unusual presentation. Discussed no obvious source or cause of the development of the priapism or the prolonged issues. Did discuss that with the time of priapism being greater than 24 hours would be at risk for potential issues. Did discuss possible fibrotic changes scarring and other issues that can develop. Discussed concerns related to ongoing erectile function. Reviewed extensively different options for management including possible distal shunt. Discussed options for bedside procedure. Discussed options for management of pain and discomfort. Discussed monitoring moving forward. Did discuss concerns related to the patient's significant infection related history. Discussed rare causes of priapism and possible concerns. Patient had been placed on broad-spectrum antibiotics by the ER with dose of Rocephin. Did not have obvious signs of infection moving into the groin region or into the penile tissues however did have edematous changes more consistent with inflammatory changes versus true infectious cellulitis or other problems. Did have significant pain and tenderness on palpation. Did discuss utilization of penile block during procedure in order to manage pain during the acute event, post procedure, and the procedure itself. Patient was agreeable to proceed. Verbal consent due to the need for emergent/urgent intervention for the ongoing likely ischemic priapism had been discussed with patient and family. Verbal consent was received and consent was confirmed with nursing who was present at the time confirming right patient and procedure. See below for procedure report for aspiration, injection, and irrigation of ischemic priapism. Patient is going to be admitted to the hospitalist team will monitor closely. Did recommend possible evaluation by infectious disease due to ongoing issues with infections as well as the unusual presentation of current issues. Cultures were taken from aspirated blood from the penile tissue these were sent for analysis. ABG had also been sent. Waiting on full results from the culture which will likely take a day or 2 in order to come back. Patient had previously done blood and urine cultures prior to the procedure. Will plan to observe the patient while admitted. Currently has bandage in place. Recommend utilizing ice with mild compression with the bandages moving forward for control of other issues. May have edematous changes secondary to procedure. Did have small amount of bleeding coming from the glans after completion of the aspiration/injection and a needle shunt of the distal left glans. Patient complicated medical and surgical history was reviewed and summarized above all imaging was reviewed interpreted by myself all labs and vitals were reviewed. Procedure was completed by myself. Did reach out and discussed case with the hospitalist team who are going to be admitting. Were agreeable moving forward. With clinical plan placed. Diagnosis: Priapism Procedure: Bilateral penile block, aspiration priapism, irrigation of priapism, injection of phenylephrine, and distal needle shunt Procedure completed bedside. Surgeon: Karl CARBONE Indications for the procedure: Severe painful priapism, presumed ischemic. Priapism for greater than 24 hours. Risks, benefits, alternatives, risk of bleeding, infection risks and possible injury to the genitals and/or penis were discussed with the patient. Due to Urgnet/Emergent issue, Verbal Consent was obtained prior to the procedure from both patient and family and is detailed in the patient's record. Prior to the start of the procedure, nursing witnessed the verbal consent and the identity of the patient was confirmed via name and date of by the patient. The correct site and the procedure to be performed were confirmed. Procedure Note: The patient was in the supine position though contracted due to chronic issues. The patient was prepped and draped in the usual sterile fashion using Betadine. Anesthetic: 1% lidocaine plain for penile block. The area at the base of the penis at approximately the 12 o'clock position was reprepped. A 22-gauge needle was used to inject the 1% lidocaine bilaterally near the neurovascular bundles. Care was taken to aspirate prior to injection. No major issues. Patient had significant/immediate relief of the severe pain he was experiencing with the onset of the local block. Approximately 1 cc was placed at the glans on the left and the mid shaft on the right. The glans was further assessed. The meatus as well as the urethral tissue were monitored throughout the process. The ABG needle was utilized to aspirate blood from the corporal bodies. Blood was found to be severely thickened and dark red/black consistent with ischemic priapism. Due to the very viscous nature blood was difficult to aspirate through the small needle. The sample was able to be sent for ABG to the pharmacy prior to that. A 18- gauge needle was then utilized at the left glans inserted directly into the corporal bodies. Thick and dark blood was once again aspirated. The 18-gauge needle was used to make a distal shunt through the glans into the corporal body on the left. A sample was aspirated and sent for culture to rule out possible infection of the penis or corporal bodies. On palpation the corporal bodies were tumesced with signs leaning towards development of fibrotic changes within the corporal bodies. Aspiration was difficult due to the thick nature of the blood. Detumescence did begin to be achieved with the aspiration. A moderate amount of dark thickened blood was able to be aspirated. Saline was then utilized to irrigate the corporal body. The left side detumesced with this well without considerable pain or other problems there was some concern of continued issues on the right side. After irrigation with normal saline irrigant and further aspiration the aspirated blood did not appear to become more easily irrigated. Color also improved. Detumescence however was still not clearly achieved. At this point it was decided to move forward with the injection. A solution of diluted 500 mcg/ml phenylephrine solution had been sent by the pharmacy team. The solution was dilated further to 100 mcg of phenylephrine per mL. A 1 mL injection was completed. Approximately 5 minutes later an additional mL was injected. Significant detumescence was achieved. Did not appear to be completely decompressed on the right side. At this point an 18-gauge needle was able to be placed into the right corporal body at approximately the mid chest position. Care was taken to monitor the meatus and the urethral tissue on insertion of the 18-gauge needle. Additional dark blood was able to be aspirated. This was able to be irrigated once again utilizing the normal saline. This did clear and detumescence was able to be achieved. There was a mild amount of bleeding noted coming from the glans. No major severe bleeding was noted throughout the entire procedure. Patient has been achieved on the left side with the insertion of the 18-gauge needle at the glans into the distal corporal body. No major bleeding was noted from the aspiration site at the right midshaft of the penile tissues within the corporal bodies. There was some fibrotic changes noted on palpation after detumescence. Likely due to the prolonged nature of the priapism at experience. Patient was monitored throughout the entire procedure. No major issues no episodes of palpitations chest pains or other issues. With detumescence achieved. The patient was then cleaned. A clean bandage followed by a [place] bandage were then wrapped around the penile tissues. Care was taken to ensure no major issues or problems or constriction with the bandaging. Very mild bleeding was still noted coming from the glans. Gauze 4 x 4's were then placed at the glans and only very minor bleeding was noted. Patient did not recur throughout the entire process. On reevaluation approximately 45 minutes after the procedure patient had not developed repeat priapism or erection. The patient tolerated the procedure well. There were no complications. Overall pain had improved greatly with first a penile block and then with the drainage of the priapism. Patient Status: The patient tolerated the procedure well. Complications: No complications. Patient tolerated procedure well. Recommend utilizing ice to be used 20 mins on and 20 mins off for 2 days and as needed after. Avoid over activity or any contact activity. Okay to wash or shower. Do not soak, bath, or swim. Bandage can likely be removed tomorrow with unwrapping of the bandages follow-up sooner there should not be a major issue. Monitor for swelling or redness or pain. Call with any issues or fevers. Patient will be admitted to the hospitalist team for observation afterwards. If any signs of changes or issues or redevelopment of the significant priapism or other issues can be reevaluated. Will monitor overnight to ensure no issues with palpitations or other issues. Will continue to follow. After procedure spoke extensively with patient's family. Updated them on the procedure and recovery. Also reviewed patient the findings as well as the procedure itself. Over 2.25 hours spent in direct care/management of patient due to the acute nature/urgent/emergent issue as well as the need for bedside procedure also including reviewing of imaging, lab work, coordination of care with the ER and medical team, and review of stat labs from the procedure. History of Present Illness History of Present Illness New consultation for patient with priapism for nearly 24 hours. Patient was having increasing pain, discomfort, redness/edematous changes and swelling, and ill feelings. Patient developed sudden onset of pain into groin and penis going down and radiating into groin and back as well as the base of the pelvis in waves. Can be severe at times. Tumescence had fluctuated. Patient was unsure of exactly when the erection began. But has been going on for greater than 24 hours at this point. Discussed and reviewed patient's family history for any history of blood disorders or problems. Patient does have extremely complicated medical history. Is bedbound and poorly mobile. Has significant issues and was most recently hospitalized with a severe pneumonia and possible sepsis. Has known decubitus ulcers and significant issues with wound healing. Also, discussed patient's medical surgery history especially related to any history of urinary issues or stone disease. Reviewed extensively patient's ongoing issues. Extensively reviewed patient's medication history including any other herbal or other medications or drugs that have been used. Patient was seen while in the ER with plans for likely admission and is undergoing observation. Patient did have some minor injuries during the last admission with pneumonia during transfers. Had some testicular pain and discomfort. Had not appear to be related to the ongoing issues. Is also dealing with significant chronic wound issues. Had been noted to have some significant edematous changes and swelling by patient's family. Appear to be going around the penile tissue. No significant wounds or new or changing skin lesions or wounds noted in the groin region per patient and family. Allergies Allergy/AdvReac Type Severity Reaction Status Date / Time No Known Allergies Allergy Verified 05/02/23 14:09 Home Medications Medication Instructions Recorded Confirmed Type gabapentin 300 mg capsule See Rx Instructions .Route .COMPLEX 07/28/19 05/22/23 History (Neurontin) docusate sodium 100 mg capsule 100 mg PO BID #60 caps 08/03/19 05/22/23 Rx (Colace) amlodipine 10 mg tablet 10 mg PO DAILY #30 tabs 10/31/19 05/22/23 Rx aspirin 81 mg tablet,delayed 81 mg PO DAILY #30 tabs 11/19/19 05/22/23 Rx release (Ecotrin Low Strength) atorvastatin 20 mg tablet (Lipitor) 20 mg PO DAILY #30 tabs 11/19/19 05/22/23 Rx pantoprazole 40 mg tablet,delayed 40 mg PO BID #60 tabs 11/19/19 05/22/23 Rx release folic acid 1 mg tablet 1 mg PO DAILY 04/13/21 05/22/23 History multivitamin (Multiple Vitamins 1 tab PO DAILY 04/13/21 05/22/23 History tablet) thiamine HCl (vitamin B1) 100 mg 100 mg PO DAILY 04/13/21 05/22/23 History tablet albuterol sulfate 2.5 mg/3 mL 2.5 mg inhalation DIRECTED PRN 10/11/21 05/22/23 History (0.083 %) solution for nebulization Shortness Of Breath Or Wheezing mecobalamin-levomefolate 1 tab PO DAILY 10/11/21 05/22/23 History calcium-pyridoxal phos 3 mg-35 mg-2 mg tablet oxycodone 5 mg tablet 5 mg PO Q6H PRN Pain 10/11/21 05/22/23 History pantoprazole 40 mg granules 40 mg PO BID 05/02/23 05/22/23 History delayed-release for susp in packet (Protonix) potassium chloride 10 mEq 10 meq PO DAILY 05/02/23 05/22/23 History tablet,extended release prednisone 10 mg tablet 10 mg PO DAILY 05/02/23 05/22/23 History L.acidop,casei,lactis,rham-B.lact,pricilla 1 cap PO DAILY #10 caps 05/20/23 05/22/23 Rx 625 mg (10 billion cell) capsule (Advanced Probiotic) amoxicillin 875 mg-potassium 1 tab PO BID #5 tabs 05/20/23 05/22/23 Rx clavulanate 125 mg tablet guaifenesin 600 mg tablet, 600 mg PO Q12 #10 tabs 05/20/23 05/22/23 Rx extended release 12 hr (Mucinex) metoprolol succinate 25 mg 12.5 mg (1/2 x 25 mg) PO QAM #30 05/20/23 05/22/23 Rx tablet,extended release 24 hr tabs sennosides 8.6 mg tablet (Senokot) 8.6 mg PO QAM #30 tabs 05/20/23 05/22/23 Rx Patient History Medical History Chronic pulmonary aspiration Right lower lobe pneumonia Neuropathy Rib fracture Chronic low back pain Degenerative joint disease (DJD) of lumbar spine Lumbar degenerative disc disease Tobacco abuse COPD (chronic obstructive pulmonary disease) Pneumothorax Surgical History S/P chest tube placement History of cataract surgery Family History Other Hypertension Social History Smoking Status: Never smoker packs per day: 1; Second Hand Exposure: No; Do You Dip or Chew Tobacco: No; Hx Alcohol Use: No (quit in 2019 also ) Hx Substance Use: No Preferred Language: [place] Communication Ability: Effective Visual Impairment: No Limitations Hearing Ability: Normal Ultrasound Sonographer Required: No Beliefs That Will Affect Care: None marital status: Current Living Situation: Spouse current occupational status: retired How many Children do You have: 0 How many Children do You have Comment: Spouse able to assist with care. Feels Safe at Home: Yes Diet: regular during the past year weight has: remained stable Assistive Devices: Walker and Wheelchair Review of Systems Review of Systems: All systems reviewed & are unremarkable except as noted in HPI & below Physical Exam Physical Exam: General: Alert and oriented x 3 in no acute distress. Patient chronic bedbound and contracted. Cachectic. HEENT: Normocephalic Atraumatic. Inspection normal. Cranial Nerves 2-12 Grossly intact. Nares are clear. Neck is supple. Normal inspection of face. Normal inspection of neck. Neurologic: No deficits on inspection. Baseline for motor function and sensory. Psychologic: Normal affect. Respiratory: Nonlabored. No use of accessory muscles. No tachypnea or dyspnea. Cardiovascular: No tachycardia Skin: [place] and Dry. Erythematous changes in the groin creases as well as around the penile tissue. Mild edematous changes of the skin of the penile shaft as well as the groin region. No significant or severe cellulitis. Due to patient positioning unable to assess known significant decubitus ulcer/chronic wounds on buttocks and right hip. Extremities: Contracted with significant weakness of the lower extremity. Some minimal mobility of the lower extremity Lymphatics: Edematous changes of the groin without obvious cellulitis. Abdomen: Soft Non-distended.No rebound or guarding. : Priapism with edematous changes around the base of the penis. On palpation severely tender to palpation especially around the glans. Possible fibrotic changes within the corporal bodies. Significant detumescence achieved after aspiration, irrigation, and injection of phenylephrine. Likely fibrotic changes on the palpation of corporal bodies. Blood aspirated from corporal bodies was dark red/black consistent with ischemic priapism. Very minimal bleeding from glans after aspiration/distal shunt. Results & Data Vital Signs (Past 12 Hours) Vital Signs Temp Pulse Pulse Resp BP BP Pulse Ox 05/22/23 16:15 98 05/22/23 16:15 68 20 144/79 H 98 05/22/23 15:10 36.6 C 105 H 20 144/79 H 98 O2 Del Method 05/22/23 16:15 Room Air 05/22/23 16:15 Room Air 05/22/23 15:10 Room Air PG Care Time/CCT Total # of Minutes Spent Total Time Spent with Patient: Total time spent is greater than 50% in coordination of care (as documented) at patient's floor/unit and/or counseling patient: Coding Level of Care Code 86263 INT INP/OBS CARE 3/75MIN Diagnoses Priapism N48.30 Stage III pressure ulcer of right hip L89.213 Demyelinating disease G37.9 Intractable back pain M54.9 Complicated UTI (urinary tract infection) N39.0 Stage II pressure ulcer of right buttock L89.312 COPD (chronic obstructive pulmonary disease) J44.9 Bladder stones N21.0 Bilateral kidney stones N20.0
--- NOTE | 2023-05-22 20:52 | History & Physical Report ---
Date of Service May 22, 2023 Assessment & Plan (1) Priapism: Plan: 67-year-old male with past medical significant for hypertension, COPD, peripheral vascular disease, hypertension, dural arteriovenous fistula, constipation, protein calorie malnutrition, history of narcotic bowel syndrome, osteoarthritis, lumbar ldegenerative disc disease, cervical myelopathy, left cervical adenopathy, history of tobacco abuse, wheelchair-bound, can transfer from bed to wheelchair but lately requiring some assistance and was recently in the hospital for aspiration pneumonia and severe sepsis and acute hypoxic respiratory failure. Treated with multiple antibiotics. Seen by speech and discharge instructions were recommended alternate solids and liquids oral hygiene and small bites and small sips in slow rate and also has right hip pressure ulcer stage III with no evidence of osteomyelitis cultures growing Klaudia treating with topical antifungal and was discharged home on Augmentin comes back with a priapism. Patient since yesterday is having priapism and hav ing a lot of pain so came to the ER today. He is also having diarrhea 3-4 times daily. And he stopped taking Augmentin today. Urology aspirated priapism. Current resting comfortably and hemodynamically stable. Has pain in his penile region and also having his chronic pain in the back and bodyaches.Denies any fevers. Alert and orientedx 3. Denies any headache. No blurred visions. No runny nose. Has mild sore throat. No cough. No chest pain or shortness of breath. No nausea. No abdominal pain. Micturating okay as per patient. Hemodynamics are okay. Priapism S/p aspiration by urology in the ER Will follow cultures Etiology unclear Possible infectious source as per urology(possibly from recent pneumonia and hip ulcer) Placed antibiotic Rocephin and Flagyl Urology and ID consult If recurrence may need aspiration again per urology Close monitor Diarrhea On antibiotics Continue probiotic Will check stool for C. difficile and stool cultures CKD stage III Presented with creatinine 1.9 which seems to be around baseline During gentle fluids Follow repeat labs Hypertension On amlodipine and metoprolol succinate Will monitor GERD on Protonix Aspiration risk Pured diet Need speech follow-up Malnutrition Dietitian consult Chronic pain Continue home pain medications Peripheral vascular disease On aspirin and statin Ambulatory dysfunction Wheelchair-bound PT OT DVT prophylaxis SCDs for now If no further procedures planned will place on heparin subcu History of Present Illness Chief Complaint: Priapism Primary Care Provider: Nora Espinosa MD 67-year-old male with past medical significant for hypertension, COPD, peripheral vascular disease, hypertension, dural arteriovenous fistula, constipation, protein calorie malnutrition, history of narcotic bowel syndrome, osteoarthritis, lumbar degenerative disc disease, cervical myelopathy, left cervical adenopathy, history of tobacco abuse, wheelchair-bound, can transfer from bed to wheelchair but lately requiring some assistance and was recently in the hospital for aspiration pneumonia and severe sepsis and acute hypoxic respiratory failure. Treated with multiple antibiotics. Seen by speech and discharge instructions were recommended alternate solids and liquids oral hygiene and small bites and small sips in slow rate and also has right hip pressure ulcer stage III with no evidence of osteomyelitis cultures growing Klaudia treating with topical antifungal and was discharged home on Augmentin comes back with a priapism. Patient since yesterday is having priapism and having a lot of pain so came to the ER today. He is also having diarrhea 3-4 times daily. And he stopped taking Augmentin today. Urology aspirated priapism. Current resting comfortably and hemodynamically stable. Has pain in his penile region and also having his chronic pain in the back and bodyaches.Denies any fevers. Alert and orientedx 3. Denies any headache. No blurred visions. No runny nose. Has mild sore throat. No cough. No chest pain or shortness of breath. No nausea. No abdominal pain. Micturating okay as per patient. Hemodynamics are okay. Past medical history. As mentioned above Past surgical history. Bilateral cataract replacement, chest tube insertion, colonoscopy, EGD, bilateral cataracts, cervical spine laminectomy, vertebral artery catheter placement. Family history. Mother had heart disease. Stroke. Father had lung cancer. Sister has heart disease. Brother has heart disease. Brother had throat cancer Allergies Allergy/AdvReac Type Severity Reaction Status Date / Time No Known Allergies Allergy Verified 05/02/23 14:09 Home Medications Medication Instructions Recorded Confirmed Type gabapentin 300 mg capsule See Rx Instructions .Route .COMPLEX 07/28/19 05/22/23 History (Neurontin) docusate sodium 100 mg capsule 100 mg PO BID #60 caps 08/03/19 05/22/23 Rx (Colace) amlodipine 10 mg tablet 10 mg PO DAILY #30 tabs 10/31/19 05/22/23 Rx aspirin 81 mg tablet,delayed 81 mg PO DAILY #30 tabs 11/19/19 05/22/23 Rx release (Ecotrin Low Strength) atorvastatin 20 mg tablet (Lipitor) 20 mg PO DAILY #30 tabs 11/19/19 05/22/23 Rx pantoprazole 40 mg tablet,delayed 40 mg PO BID #60 tabs 11/19/19 05/22/23 Rx release folic acid 1 mg tablet 1 mg PO DAILY 04/13/21 05/22/23 History multivitamin (Multiple Vitamins 1 tab PO DAILY 04/13/21 05/22/23 History tablet) thiamine HCl (vitamin B1) 100 mg 100 mg PO DAILY 04/13/21 05/22/23 History tablet albuterol sulfate 2.5 mg/3 mL 2.5 mg inhalation DIRECTED PRN 10/11/21 05/22/23 History (0.083 %) solution for nebulization Shortness Of Breath Or Wheezing mecobalamin-levomefolate 1 tab PO DAILY 10/11/21 05/22/23 History calcium-pyridoxal phos 3 mg-35 mg-2 mg tablet oxycodone 5 mg tablet 5 mg PO Q6H PRN Pain 10/11/21 05/22/23 History pantoprazole 40 mg granules 40 mg PO BID 05/02/23 05/22/23 History delayed-release for susp in packet (Protonix) potassium chloride 10 mEq 10 meq PO DAILY 05/02/23 05/22/23 History tablet,extended release prednisone 10 mg tablet 10 mg PO DAILY 05/02/23 05/22/23 History L.acidop,casei,lactis,rham-B.lact,pricilla 1 cap PO DAILY #10 caps 05/20/23 05/22/23 Rx 625 mg (10 billion cell) capsule (Advanced Probiotic) amoxicillin 875 mg-potassium 1 tab PO BID #5 tabs 05/20/23 05/22/23 Rx clavulanate 125 mg tablet guaifenesin 600 mg tablet, 600 mg PO Q12 #10 tabs 05/20/23 05/22/23 Rx extended release 12 hr (Mucinex) metoprolol succinate 25 mg 12.5 mg (1/2 x 25 mg) PO QAM #30 05/20/23 05/22/23 Rx tablet,extended release 24 hr tabs sennosides 8.6 mg tablet (Senokot) 8.6 mg PO QAM #30 tabs 05/20/23 05/22/23 Rx Past Med/Surg History Medical History Chronic pulmonary aspiration Right lower lobe pneumonia Neuropathy Rib fracture Chronic low back pain Degenerative joint disease (DJD) of lumbar spine Lumbar degenerative disc disease Tobacco abuse COPD (chronic obstructive pulmonary disease) Pneumothorax Surgical History S/P chest tube placement History of cataract surgery Family History Other Hypertension Social History Smoking Status: Never smoker packs per day: 1; Second Hand Exposure: No; Do You Dip or Chew Tobacco: No; Hx Alcohol Use: No Hx Substance Use: No Preferred Language: Slovenian Communication Ability: Effective Visual Impairment: No Limitations Hearing Ability: Normal Optical Engineer Required: No Beliefs That Will Affect Care: None marital status: Current Living Situation: Spouse current occupational status: retired How many Children do You have: 0 How many Children do You have Comment: Spouse able to assist with care. Other Information That Helps Us Care for You: No Feels Safe at Home: Yes Safety Concerns: Feels Safe At This Time Diet: regular during the past year weight has: remained stable Assistive Devices: Wheelchair Review of Systems Review of Systems: All systems reviewed & are unremarkable except as noted in HPI & below Physical Exam Physical Exam: General- Not in distress Head- atraumatic Eyes- PERRL. ENT- oropharynx clear Neck- supple, no JVD. Lungs- clear to auscultation no wheezing or crackles. Heart- regular rhythm; no murmur, no gallop. Abdomen- normal bowel sounds, soft, nontender, no distension. Priapism seen. S/P penile aspiration and on dressing Extremities- no pretibial edema, no erythema seen. Neuro- alert, oriented x 3; PERRL, no facial palsy; no dysarthria; Lower extremity weakness. Skin- Stage 3 right hip ulcer. Results & Data Results & Data Vital Signs (Past 12 Hours) Vital Signs Temp Pulse Pulse Resp BP BP Pulse Ox 05/22/23 19:15 97 H 18 115/67 98 05/22/23 16:15 98 05/22/23 16:15 68 20 144/79 H 98 05/22/23 15:10 36.6 C 105 H 20 144/79 H 98 O2 Del Method 05/22/23 19:15 Room Air 05/22/23 16:15 Room Air 05/22/23 16:15 Room Air 05/22/23 15:10 Room Air Diagnostic Findings Laboratory Results WBC 19.27 K/ul (4.8-10.8) H 05/22/23 15:23 RBC 4.95 M/uL (4.70-6.10) 05/22/23 15:23 Hgb 14.5 g/dl (14.0-18.0) 05/22/23 15:23 Hct 45.1 % (42.0-52.0) 05/22/23 15:23 MCV 91.1 fL (80.0-100.0) 05/22/23 15:23 MCH 29.3 pg (25.0-34.0) 05/22/23 15:23 MCHC 32.2 g/dL (32.0-36.0) 05/22/23 15:23 RDW Std Deviation 53.8 fL (36.4-46.3) H 05/22/23 15:23 RDW Coeff of [place] 16.2 % (11.5-14.5) H 05/22/23 15:23 Plt Count 479 K/uL (130-400) H 05/22/23 15:23 MPV 10.2 fL (9.4-12.4) 05/22/23 15:23 Immature Gran % (Auto) 1.6 % 05/22/23 15:23 Neut % (Auto) 72.9 % 05/22/23 15:23 Lymph % (Auto) 15.2 % 05/22/23 15:23 [place] % (Auto) 8.4 % 05/22/23 15:23 Eos % (Auto) 0.9 % 05/22/23 15:23 Baso % (Auto) 1.0 % 05/22/23 15:23 Neut # (Auto) 14.06 K/uL (1.40-6.50) H 05/22/23 15:23 Lymph # (Auto) 2.93 K/uL (1.20-3.40) 05/22/23 15:23 [place] # (Auto) 1.62 K/uL (0.11-0.59) H 05/22/23 15:23 Eos # (Auto) 0.17 K/uL (0.00-0.50) 05/22/23 15:23 Baso # (Auto) 0.19 K/uL (0.00-0.20) 05/22/23 15:23 Immature Gran # (Auto) 0.30 K/uL (0.01-0.20) H 05/22/23 15:23 ABG pH 7.00 (7.35-7.45) L* 05/22/23 18:35 ABG pCO2 56 mmHg (35-46) H 05/22/23 18:35 ABG pO2 38 mmHg (80-95) L 05/22/23 18:35 ABG HCO3 14 mmol/L (19-24) L 05/22/23 18:35 ABG O2 Saturation 64.6 % (90-95) L 05/22/23 18:35 ABG Base Excess -16.9 mEq/L (-9-1.8) L 05/22/23 18:35 Ant Test Not Reportable 05/22/23 18:35 Oxygen Given Not Reportable 05/22/23 18:35 Sodium 133 mmol/L (136-145) L 05/22/23 15:23 Potassium 4.2 mmol/L (3.5-5.1) 05/22/23 15:23 Chloride 104 mmol/L (98-107) 05/22/23 15:23 Carbon Dioxide 18 mmol/L (21-32) L 05/22/23 15:23 Anion Gap 11 (3-11) 05/22/23 15:23 BUN 31 mg/dl (6-23) H 05/22/23 15:23 Creatinine 1.92 mg/dl (0.6-1.4) H 05/22/23 15:23 Est Cr Clr Drug Dosing 26.0 ml/min 05/22/23 15:23 Est GFR ( Amer) 40.6 ml/min 05/22/23 15:23 Est GFR (Non-Af Amer) 35.0 ml/min 05/22/23 15:23 BUN/Creatinine Ratio 16.1 (10-20) 05/22/23 15:23 Glucose 105 mg/dl (70-99(Fasting)) H 05/22/23 15:23 Lactate 1.3 mmol/L (0.4-2.0) 05/22/23 16:04 Calcium 10.0 mg/dl (8.6-10.3) 05/22/23 15:23 Magnesium 2.0 mg/dl (1.7-2.4) 05/22/23 15:23 Total Bilirubin 0.9 mg/dl (0.2-1.0) 05/22/23 15:23 Direct Bilirubin 0.0 mg/dl (0-0.2) 05/22/23 15:23 AST 18 U/L (13-39) 05/22/23 15:23 ALT 17 U/L (7-52) 05/22/23 15:23 Alkaline Phosphatase 69 U/L (34-104) 05/22/23 15:23 Total Creatine Kinase 43 U/L (30-223) 05/22/23 15:23 Troponin I High Sens 8.6 pg/ml (0-20) 05/22/23 15:23 Total Protein 7.9 gm/dl (6.0-8.3) 05/22/23 15:23 Albumin 3.9 gm/dl (3.4-5.0) 05/22/23 15:23 Procalcitonin 0.35 ng/ml (0-0.5) 05/22/23 16:03 Urine Color Yellow 05/22/23 17:09 Urine Appearance Clear (Clear) 05/22/23 17:09 Urine pH 5.5 (4.5-7.5) 05/22/23 17:09 Ur Specific [place] 1.015 (1.000-1.030) 05/22/23 17:09 Urine Protein 3+ (Negative) H 05/22/23 17:09 Urine Glucose (UA) Negative (Negative) 05/22/23 17:09 Urine Ketones Negative (Negative) 05/22/23 17:09 Urine Blood 1+ (Negative) H 05/22/23 17:09 Urine Nitrite Negative (Negative) 05/22/23 17:09 Urine Bilirubin Negative (Negative) 05/22/23 17:09 Urine Urobilinogen Negative (Negative) 05/22/23 17:09 Ur Leukocyte Esterase Negative (Negative) 05/22/23 17:09 Urine WBC (Auto) 10-30 /hpf (0-5) H 05/22/23 17:09 Urine RBC (Auto) 0-4 /hpf (0-4) 05/22/23 17:09 U Hyaline Cast (Auto) 1-5 /lpf (0-5) 05/22/23 17:09 U Epithel Cells (Auto) >30 /lpf (0-5) H 05/22/23 17:09 Urine Bacteria (Auto) Negative (Negative) 05/22/23 17:[address] 05/22/23 17:13 CT pelvis wo con CT DOSE: 283.15 mGy.cm CLINICAL HISTORY: priapism, groin erythema TECHNIQUE: Multiaxial CT images of the pelvis are performed without intravenous contrast and reformatted in the sagittal and coronal plane. A dose lowering technique was utilized adhering to the principles of ALARA. COMPARISON STUDY: Abdomen and pelvis CT 11/15/2019. FINDINGS: There is a 4.0 x 3.2 x 2.5 cm hypodense structure within the right groin which appears to represent a high riding/undescended right testis within the right inguinal canal. No inguinal lymphadenopathy. Mild bladder wall thickening. This is likely chronic from the mildly enlarged prostate gland. There are few punctate calculi noted. No loculated fluid collections to suggest an abscess. No pelvic lymphadenopathy or pelvic free fluid. The visualized loops of bowel show no wall thickening or obstruction. Normal appendix. No evidence for an inguinal hernia. The left testis is likely located within the scrotum. No acute fractures identified. IMPRESSION: 1. There is a 4.0 x 3.2 x 2.5 cm hypodense structure within the right groin which appears to represent a high riding/undescended right testis within the right inguinal canal. 2. A few punctate bladder calculi. ACT 112: Negative or not required by law. Electronically signed by: Jose Rafael Noe M.D. 05/22/2023 6:33 PM Code Status & VTE Plan VTE Prophylaxis Plan VTE Prophylaxis will be ordered: Yes
--- NOTE | 2023-05-22 22:36 | Emergency Department Note ---
Impression & Plan Priapism, Cellulitis of groin ED Provider Note NAME: GEORGIE NOBLE AGE: 67 SEX: Male INFORMANT: Patient ED PROVIDER(S): Johnathan Hollingsworth MD CHIEF COMPLAINT: Priapism and dark urine PLAN: Disposition: Admitted Outpatient prescription management: none Referral: None MEDICAL DECISION MAKING: Patient presented and a workup was done. He was noted to have some groin erythema and a priapism present. Laboratory testing revealed a leukocytosis though slightly worse than prior. Patient did have some renal insufficiency noted on chemistry panel. Urinalysis did reveal some hematuria. Consultation was placed urgently with urology, Dr. Barajas. He did ask for CT imaging of the pelvis to be performed. He did evaluate the patient in the ER after imaging. He did treat the priapism which helped. He did note there was concerns for ischemia and also for some cellulitis in the groin. Patient was given IV Rocephin. He would like the patient admitted for observation and close follow-up in the hospital. Patient was treated with IV Dilaudid and Zofran for symptom control and did feel better after. Dr. Campbell, [facility] service Care/management discussed with: mental health case manager, hospital pharmacist Level of care consideration(s): After review of the information above and other included data, I feel the patient requires escalation of care to admission Triage Nursing notes: reviewed and agree them. Vital Signs: reviewed and remarkable for no significant abnormalities Additional History obtained from: Patient significant other regarding his discharge from the hospital and course at home. Chronic Medical/Social Conditions affecting care: Demyelinating disease Prior/ Outside/ External records reviewed: none Differential Diagnosis: Priapism, medication side effect, cellulitis, abscess, deep space infection, intra-abdominal process, UTI, as well as others were entertained. Diagnostics, independently interpreted by me: ECG: Full ECG reveals sinus tachycardia at [address] elevation or depression Cardiac Monitoring: Cardiac monitoring ordered by me: The patient was placed on continuous cardiac monitoring and observed. It revealed a normal sinus rhythm at 97 beats per minute without ectopy or evidence of dysrhythmia. Medical decision rules: none Imaging studies: I refer you to the EMR for further details. HPI: 67 year old Male arrives for evaluation of priapism and dark urine. Patient notes that he was discharged in the hospital 2 days ago. He was at home. He developed an erection about 28 hours ago. It did not resolve. He did note some redness in the groin as well. Patient had some diarrhea. He was on Augmentin but stopped this due to the diarrhea since discharge. Patient notes 7 out of 10 pain in the penis. Patient did note some dark urine that started yesterday as well. No dysuria. No prior history of priapism. Pt denies direct trauma LOC, headache, fevers, chills, chest pain, breathing difficulties, nausea, vomiting, abdominal pain, new back pain, melena, hematochezia, or other complaints. PAST MEDICAL HISTORY: See Below, sepsis, demyelinating disease, CKD PAST SURGICAL HISTORY: See Below, SOCIAL HISTORY: See Below, retired HOME MEDICATIONS: See Below ALLERGIES: See Below VITALS: See Below PHYSICAL EXAMINATION: GENERAL: Awake, alert, uncomfortable-appearing, in no distress HENT: Normocephalic, atraumatic. Oropharynx unremarkable. EYES: Normal conjunctiva. Sclera non-icteric. NECK: Inspection normal. Non-tender. Supple. No nuchal rigidity. FROM. No masses. RESPIRATORY: Clear to auscultation. No wheezes. No rales. Normal respiratory effort. CARDIAC: Borderline tachycardic rate. Normal rhythm. No murmurs. No rubs. Extremities warm and well perfused. Pulses equal. No JVD. GI: Soft, non-distended. No tenderness to palpation. No rebound or guarding. No masses. : Erection noted. No penile discharge. The patient has some mild erythema to the groin, base of the penis, and scrotum without significant scrotal erythema. Mild tinea cruris present. MUSCULOSKELETAL: Atraumatic. Chest examination reveals no tenderness. The back is symmetrical on inspection without obvious abnormality. There is no CVA tenderness to palpation. No joint edema. LOWER EXTREMITIES: Calves are equal size bilaterally and non-tender. No edema. No discoloration. NEURO: Normal sensorium. Generalized muscular atrophy of the extremities noted. Family states this is chronic for him. SKIN: No rash or jaundice noted. PROCEDURES: none CRITICAL CARE: none OBSERVATION NOTE: none Past Med/Surg History Medical History Chronic pulmonary aspiration Right lower lobe pneumonia Neuropathy Rib fracture Chronic low back pain Degenerative joint disease (DJD) of lumbar spine Lumbar degenerative disc disease Tobacco abuse COPD (chronic obstructive pulmonary disease) Pneumothorax Surgical History S/P chest tube placement History of cataract surgery Family History Other Hypertension Social History Smoking Status: Never smoker packs per day: 1; Second Hand Exposure: No; Do You Dip or Chew Tobacco: No; Hx Alcohol Use: No (quit in 2019 also ) Hx Substance Use: No Preferred Language: Citizen Of [place] Communication Ability: Effective Visual Impairment: No Limitations Hearing Ability: Normal Industrial Engineering Required: No Beliefs That Will Affect Care: None marital status: Current Living Situation: Spouse current occupational status: retired How many Children do You have: 0 How many Children do You have Comment: Spouse able to assist with care. Feels Safe at Home: Yes Diet: regular during the past year weight has: remained stable Assistive Devices: Walker and Wheelchair Allergies Allergies Allergy/AdvReac Type Severity Reaction Status Date / Time No Known Allergies Allergy Verified 05/02/23 14:09 Home Meds Home Medications Medication Instructions Recorded Confirmed gabapentin 300 mg capsule See Rx Instructions .Route .COMPLEX 07/28/19 05/22/23 (Neurontin) folic acid 1 mg tablet 1 mg PO DAILY 04/13/21 05/22/23 multivitamin (Multiple Vitamins 1 tab PO DAILY 04/13/21 05/22/23 tablet) thiamine HCl (vitamin B1) 100 mg 100 mg PO DAILY 04/13/21 05/22/23 tablet albuterol sulfate 2.5 mg/3 mL 2.5 mg inhalation DIRECTED PRN 10/11/21 05/22/23 (0.083 %) solution for nebulization Shortness Of Breath Or Wheezing mecobalamin-levomefolate 1 tab PO DAILY 10/11/21 05/22/23 calcium-pyridoxal phos 3 mg-35 mg-2 mg tablet oxycodone 5 mg tablet 5 mg PO Q6H PRN Pain 10/11/21 05/22/23 pantoprazole 40 mg granules 40 mg PO BID 05/02/23 05/22/23 delayed-release for susp in packet (Protonix) potassium chloride 10 mEq 10 meq PO DAILY 05/02/23 05/22/23 tablet,extended release prednisone 10 mg tablet 10 mg PO DAILY 05/02/23 05/22/23 Previous Rx's Medication Instructions Recorded docusate sodium 100 mg capsule 100 mg PO BID #60 caps 08/03/19 (Colace) amlodipine 10 mg tablet 10 mg PO DAILY #30 tabs 10/31/19 aspirin 81 mg tablet,delayed 81 mg PO DAILY #30 tabs 11/19/19 release (Ecotrin Low Strength) atorvastatin 20 mg tablet (Lipitor) 20 mg PO DAILY #30 tabs 11/19/19 pantoprazole 40 mg tablet,delayed 40 mg PO BID #60 tabs 11/19/19 release L.acidop,casei,lactis,rham-B.lact,pricilla 1 cap PO DAILY #10 caps 05/20/23 625 mg (10 billion cell) capsule (Advanced Probiotic) amoxicillin 875 mg-potassium 1 tab PO BID #5 tabs 05/20/23 clavulanate 125 mg tablet guaifenesin 600 mg tablet, 600 mg PO Q12 #10 tabs 05/20/23 extended release 12 hr (Mucinex) metoprolol succinate 25 mg 12.5 mg (1/2 x 25 mg) PO QAM #30 05/20/23 tablet,extended release 24 hr tabs sennosides 8.6 mg tablet (Senokot) 8.6 mg PO QAM #30 tabs 05/20/23 Results & Data (ED) Vital Signs Vital Signs - 24 hr 05/22/23 15:10 05/22/23 16:15 05/22/23 16:15 Temperature 36.6 C Temperature Source Temporal Artery Scan Pulse Rate 105 H Pulse Rate [Apical] 68 Pulse Rate from SpO2 Sensor Respiratory Rate 20 20 Respiratory Effort / Characteristics Non-Labored Non-Labored Respiratory Depth Normal Normal Respiratory Pattern Blood Pressure 144/79 H Blood Pressure [Right Arm] 144/79 H Blood Pressure Mean 100 Blood Pressure Mean [Right Arm] 100 Pulse Oximetry 98 98 98 Oxygen Delivery Method Room Air Room Air Room Air Sepsis Recent Fever Within 48 Hours No Sepsis New/Unexplained Change in Mental Status No Sepsis Action Taken by Nursing No Action Required 05/22/23 19:15 05/22/23 21:00 Temperature Temperature Source Pulse Rate Pulse Rate [Apical] 97 H Pulse Rate from SpO2 Sensor 105 H Respiratory Rate 18 Respiratory Effort / Characteristics Non-Labored Spontaneous Respiratory Depth Normal Respiratory Pattern Regular Blood Pressure 135/65 Blood Pressure [Right Arm] 115/67 Blood Pressure Mean 88 Blood Pressure Mean [Right Arm] 83 Pulse Oximetry 98 98 Oxygen Delivery Method Room Air Room Air Sepsis Recent Fever Within 48 Hours Sepsis New/Unexplained Change in Mental Status Sepsis Action Taken by Nursing Laboratory Data 05/22/23 15:23 05/22/23 15:23 Lab Results 05/22/23 05/22/23 05/22/23 Range/Units 15:23 16:03 16:04 WBC 19.27 H (4.8-10.8) K/ul RBC 4.95 (4.70-6.10) M/uL Hgb 14.5 (14.0-18.0) g/dl Hct 45.1 (42.0-52.0) % MCV 91.1 (80.0-100.0) fL MCH 29.3 (25.0-34.0) pg MCHC 32.2 (32.0-36.0) g/dL RDW Std Deviation 53.8 H (36.4-46.3) fL RDW Coeff of [place] 16.2 H (11.5-14.5) % Plt Count 479 H (130-400) K/uL MPV 10.2 (9.4-12.4) fL Immature Gran % (Auto) 1.6 % Neut % (Auto) 72.9 % Lymph % (Auto) 15.2 % Lares % (Auto) 8.4 % Eos % (Auto) 0.9 % Baso % (Auto) 1.0 % Neut # (Auto) 14.06 H (1.40-6.50) K/uL Lymph # (Auto) 2.93 (1.20-3.40) K/uL Lares # (Auto) 1.62 H (0.11-0.59) K/uL Eos # (Auto) 0.17 (0.00-0.50) K/uL Baso # (Auto) 0.19 (0.00-0.20) K/uL Immature Gran # (Auto) 0.30 H (0.01-0.20) K/uL ABG pH (7.35-7.45) ABG pCO2 (35-46) mmHg ABG pO2 (80-95) mmHg ABG HCO3 (19-24) mmol/L ABG O2 Saturation (90-95) % ABG Base Excess (-9-1.8) mEq/L Atn Test Oxygen Given Sodium 133 L (136-145) mmol/L Potassium 4.2 (3.5-5.1) mmol/L Chloride 104 (98-107) mmol/L Carbon Dioxide 18 L (21-32) mmol/L Anion Gap 11 (3-11) BUN 31 H (6-23) mg/dl Creatinine 1.92 H (0.6-1.4) mg/dl Est Cr Clr Drug Dosing 26.0 ml/min Est GFR ( Amer) 40.6 ml/min Est GFR (Non-Af Amer) 35.0 ml/min BUN/Creatinine Ratio 16.1 (10-20) Glucose 105 H (70-99(Fasting)) mg/dl Lactate 1.3 (0.4-2.0) mmol/L Calcium 10.0 (8.6-10.3) mg/dl Magnesium 2.0 (1.7-2.4) mg/dl Total Bilirubin 0.9 (0.2-1.0) mg/dl Direct Bilirubin 0.0 (0-0.2) mg/dl AST 18 (13-39) U/L ALT 17 (7-52) U/L Alkaline Phosphatase 69 (34-104) U/L Total Creatine Kinase 43 (30-223) U/L Troponin I High Sens 8.6 (0-20) pg/ml Total Protein 7.9 (6.0-8.3) gm/dl Albumin 3.9 (3.4-5.0) gm/dl Procalcitonin 0.35 (0-0.5) ng/ml Urine Color Urine Appearance (Clear) Urine pH (4.5-7.5) Ur Specific [place] (1.000-1.030) Urine Protein (Negative) Urine Glucose (UA) (Negative) Urine Ketones (Negative) Urine Blood (Negative) Urine Nitrite (Negative) Urine Bilirubin (Negative) Urine Urobilinogen (Negative) Ur Leukocyte Esterase (Negative) Urine WBC (Auto) (0-5) /hpf Urine RBC (Auto) (0-4) /hpf U Hyaline Cast (Auto) (0-5) /lpf U Epithel Cells (Auto) (0-5) /lpf Urine Bacteria (Auto) (Negative) 05/22/23 05/22/23 Range/Units 17:09 18:35 WBC (4.8-10.8) K/ul RBC (4.70-6.10) M/uL Hgb (14.0-18.0) g/dl Hct (42.0-52.0) % MCV (80.0-100.0) fL MCH (25.0-34.0) pg MCHC (32.0-36.0) g/dL RDW Std Deviation (36.4-46.3) fL RDW Coeff of [place] (11.5-14.5) % Plt Count (130-400) K/uL MPV (9.4-12.4) fL Immature Gran % (Auto) % Neut % (Auto) % Lymph % (Auto) % Lares % (Auto) % Eos % (Auto) % Baso % (Auto) % Neut # (Auto) (1.40-6.50) K/uL Lymph # (Auto) (1.20-3.40) K/uL Lares # (Auto) (0.11-0.59) K/uL Eos # (Auto) (0.00-0.50) K/uL Baso # (Auto) (0.00-0.20) K/uL Immature Gran # (Auto) (0.01-0.20) K/uL ABG pH 7.00 L* (7.35-7.45) ABG pCO2 56 H (35-46) mmHg ABG pO2 38 L (80-95) mmHg ABG HCO3 14 L (19-24) mmol/L ABG O2 Saturation 64.6 L (90-95) % ABG Base Excess -16.9 L (-9-1.8) mEq/L Ant Test Not Reportable Oxygen Given Not Reportable Sodium (136-145) mmol/L Potassium (3.5-5.1) mmol/L Chloride (98-107) mmol/L Carbon Dioxide (21-32) mmol/L Anion Gap (3-11) BUN (6-23) mg/dl Creatinine (0.6-1.4) mg/dl Est Cr Clr Drug Dosing ml/min Est GFR ( Amer) ml/min Est GFR (Non-Af Amer) ml/min BUN/Creatinine Ratio (10-20) Glucose (70-99(Fasting)) mg/dl Lactate (0.4-2.0) mmol/L Calcium (8.6-10.3) mg/dl Magnesium (1.7-2.4) mg/dl Total Bilirubin (0.2-1.0) mg/dl Direct Bilirubin (0-0.2) mg/dl AST (13-39) U/L ALT (7-52) U/L Alkaline Phosphatase (34-104) U/L Total Creatine Kinase (30-223) U/L Troponin I High Sens (0-20) pg/ml Total Protein (6.0-8.3) gm/dl Albumin (3.4-5.0) gm/dl Procalcitonin (0-0.5) ng/ml Urine Color Yellow Urine Appearance Clear (Clear) Urine pH 5.5 (4.5-7.5) Ur Specific [place] 1.015 (1.000-1.030) Urine Protein 3+ H (Negative) Urine Glucose (UA) Negative (Negative) Urine Ketones Negative (Negative) Urine Blood 1+ H (Negative) Urine Nitrite Negative (Negative) Urine Bilirubin Negative (Negative) Urine Urobilinogen Negative (Negative) Ur Leukocyte Esterase Negative (Negative) Urine WBC (Auto) 10-30 H (0-5) /hpf Urine RBC (Auto) 0-4 (0-4) /hpf U Hyaline Cast (Auto) 1-5 (0-5) /lpf U Epithel Cells (Auto) >30 H (0-5) /lpf Urine Bacteria (Auto) Negative (Negative) Administered Medications Hydromorphone HCl (Hydromorphone Inj 0.5 Mg/0.5 Ml Syr) 0.5 mg IV Q15M PRN PRN Reason: Pain Stop: 06/05/23 16:55 Last Admin: 05/22/23 20:20 Dose: 0.5 mg Documented By: Admin: 05/22/23 17:04 Dose: 0.5 mg Documented By: MARGOTH Discontinued Medications Ceftriaxone Sodium (Rocephin) 2,000 mg in 50 mls @ 100 mls/hr IV NOW STA Stop: 05/22/23 19:53 Last Admin: 05/22/23 20:11 Dose: 100 mls/hr Documented By: JAMIE Lidocaine HCl (Lidocaine 1% Local 20 Ml Vial) Confirm Administered Dose 20 ml .ROUTE .STK-MED ONE Stop: 05/22/23 18:13 Last Admin: 05/22/23 18:17 Dose: 20 ml Documented By: MOO Ondansetron HCl (Ondansetron Inj 2 Mg/Ml 2 Ml Vial) 4 mg IV NOW STA Stop: 05/22/23 16:57 Last Admin: 05/22/23 17:04 Dose: 4 mg Documented By: MARGOTH Phenylephrine HCl (Phenylephrine Hcl 10 Mg/Ml Vial) 10 mg ITC ONE ONE Stop: 05/22/23 17:31 Last Admin: 05/22/23 17:49 Dose: 10 mg Documented By: ES Imaging Data Radiologist's Impression: Pelvis CT 05/22/23 17:13 [address] pelvis wo con CT DOSE: 283.15 mGy.cm CLINICAL HISTORY: priapism, groin erythema TECHNIQUE: Multiaxial CT images of the pelvis are performed without intravenous contrast and reformatted in the sagittal and coronal plane. A dose lowering technique was utilized adhering to the principles of ALARA. COMPARISON STUDY: Abdomen and pelvis CT 11/15/2019. FINDINGS: There is a 4.0 x 3.2 x 2.5 cm hypodense structure within the right groin which appears to represent a high riding/undescended right testis within the right inguinal canal. No inguinal lymphadenopathy. Mild bladder wall thickening. This is likely chronic from the mildly enlarged prostate gland. There are few punctate calculi noted. No loculated fluid collections to suggest an abscess. No pelvic lymphadenopathy or pelvic free fluid. The visualized loops of bowel show no wall thickening or obstruction. Normal appendix. No evidence for an inguinal hernia. The left testis is likely located within the scrotum. No acute fractures identified. IMPRESSION: 1. There is a 4.0 x 3.2 x 2.5 cm hypodense structure within the right groin which appears to represent a high riding/undescended right testis within the right inguinal canal. 2. A few punctate bladder calculi. ACT 112: Negative or not required by law. Electronically signed by: Jose Rafael Noe M.D. 05/22/2023 6:33 PM Discharge Plan Visit Data Chief Complaint: Infection Stated Complaint: SWOLLEN & RED TESTICLES & ERECTION ED Provider: Johnathan Hollingsworth Discharge Problem: Priapism, Cellulitis of groin Forms Stand Alone Forms: [facility] Prescriptions Prescriptions: No Action pantoprazole [Protonix] [address] for susp in packet 40 mg PO BID potassium chloride 10 mEq tablet extended release 10 meq PO DAILY prednisone 10 mg tablet 10 mg PO DAILY thiamine HCl (vitamin B1) 100 mg tablet 100 mg PO DAILY folic acid 1 mg tablet 1 mg PO DAILY multivitamin [Multiple Vitamins] Tablet 1 tab PO DAILY pantoprazole 40 mg Tablet,Delayed Release (Dr/Ec) 40 mg PO BID Qty: 60 0RF aspirin [Ecotrin Low Strength] 81 mg tablet,delayed release (DR/EC) 81 mg PO DAILY Qty: 30 2RF Rx Instructions: always with a full stomach atorvastatin [Lipitor] 20 mg tablet 20 mg PO DAILY Qty: 30 2RF gabapentin [Neurontin] 300 mg capsule See Rx Instructions .ROUTE .COMPLEX Rx Instructions: 300 mg orally; TAKES 300 MG QAM & AFTERNOON, THEN 600 MG QPM. docusate sodium [Colace] 100 mg capsule 100 mg PO BID Qty: 60 0RF amlodipine 10 mg tablet 10 mg PO DAILY Qty: 30 0RF albuterol sulfate 2.5 mg /3 mL (0.083 %) Solution For Nebulization 2.5 mg INHALATION DIRECTED PRN (Reason: Shortness Of Breath Or Wheezing) oxycodone 5 mg tablet 5 mg PO Q6H PRN (Reason: Pain) mecobal-levomefolat Ca-B6 phos 3-35-2 mg Tablet 1 tab PO DAILY metoprolol succinate 25 mg Tablet Extended Release 24 Hr 12.5 mg PO QAM Qty: 30 0RF guaifenesin [Mucinex] 600 mg Tablet Extended Release 12hr 600 mg PO Q12 Qty: 10 0RF Advanced Probiotic 625 mg (10 billion cell) Capsule 1 cap PO DAILY Qty: 10 0RF sennosides [Senokot] 8.6 mg Tablet 8.6 mg PO QAM Qty: 30 0RF amoxicillin-pot clavulanate 875-125 mg tablet 1 tab PO BID Qty: 5 0RF Referrals Referrals: Nora Espinosa MD [Primary Care Provider] -
[2023-05-22] MEDS ORDERED: ACETAMINOPHEN 325 MG TAB PO PRN (22:56)
[2023-05-22] MEDS ORDERED: ALBUTEROL 0.083% NEBU SOLN 3 ML VIAL INH PRN (22:56)
[2023-05-22] MEDS ORDERED: NITROGLYCERIN SL 0.4 MG/TAB TAB SL PRN (22:56)
[2023-05-22] MEDS: SODIUM CHLORIDE 0.9% 1,000 ML IV SCH (23:57)
[2023-05-23] MEDS: metroNIDAZOLE 500 MG/100 ML BAG IV SCH (00:25)
[2023-05-23] MEDS: PANTOprazole 40 MG TAB PO SCH (01:30)
[2023-05-23] MEDS: GABAPENTIN 300 MG CAP PO SCH ×2 (01:30→07:53)
[2023-05-23] MEDS: guaiFENesin 600 MG TABCR PO SCH (01:30)
[2023-05-23 05:47] LABS: Basophils # (auto) 0.21 K/uL (0.00-0.20); Basophils % (auto) 1.1 %; Eosinophils # (auto) 0.19 K/uL (0.00-0.50); Hemoglobin 12.1 g/dl (14.0-18.0); Lymphocytes # (auto) 2.99 K/uL (1.20-3.40); Lymphocytes % (auto) 15.2 %; Mean Corpuscular Hemoglobin 29.5 pg (25.0-34.0); Mean Corpuscular Hgb Conc 31.8 g/dL (32.0-36.0); Mean Corpuscular Volume 92.7 fL (80.0-100.0); Mean Platelet Volume 9.8 fL (9.4-12.4); Monocytes # (auto) 1.91 K/uL (0.11-0.59); Monocytes % (auto) 9.7 %; Neutrophils # (auto) 14.14 K/uL (1.40-6.50); Platelet Count 471 K/uL (130-400); RDW Coefficient of Variation 16.3 % (11.5-14.5); RDW Standard Deviation 55.2 fL (36.4-46.3); White Blood Count 19.64 K/ul (4.8-10.8)
[2023-05-23 06:02] LABS: BUN Creatinine Ratio 13.8 (10-20); Calcium 9.1 mg/dl (8.6-10.3); Creatinine Clr Calc Pharmacy 26.6 ml/min; Est GFR (African American) 41.6 ml/min; Est GFR (Non-African American) 35.9 ml/min; Magnesium 1.8 mg/dl (1.7-2.4); Potassium 4.6 mmol/L (3.5-5.1)
--- NOTE | 2023-05-23 07:29 | Hospitalist Progress Note ---
Date of Service May 23, 2023 Assessment & Plan (1) Priapism: Plan: 67-yo M with hypertension, COPD, peripheral vascular disease, hypertension, dural arteriovenous fistula, constipation, protein calorie malnutrition, history of narcotic bowel syndrome, osteoarthritis, lumbar degenerative disc disease, cervical myelopathy, left cervical adenopathy, history of tobacco abuse, wheelchair-bound, can transfer from bed to wheelchair but lately requiring some assistance and was recently in the hospital for aspiration pneumonia and severe sepsis and acute hypoxic respiratory failure. Treated with multiple antibiotics. Seen by speech and discharge instructions were recommended alternate solids and liquids oral hygiene and small bites and small sips in slow rate and also has right hip pressure ulcer stage III with no evidence of osteomyelitis cultures growing Klaudia treating with topical antifungal and was discharged home on Augmentin comes back with a priapism. Patient since yesterday is having priapism and having a lot of pain so came to the ER . He is also having diarrhea 3-4 times daily. And he stopped taking Augmentin. Urology aspirated priapism. Current resting comfortably and hemodynamically stable. Has pain in his penile region and also having his chronic pain in the back and bodyaches.Denies any fevers. Alert and oriented x 3. Denies any headache. No blurred visions. No runny nose. Has mild sore throat. No cough. No chest pain or shortness of breath. No nausea. No abdominal pain. Micturating okay as per patient. Hemodynamics are okay. Priapism S/p aspiration by urology in the ER Will follow cultures Etiology unclear Possible infectious source as per urology(possibly from recent pneumonia and hip ulcer) Placed antibiotic Rocephin and Flagyl Urology and ID consult If recurrence may need aspiration again per urology Close monitor Diarrhea On antibiotics Continue probiotic stool checked for C. difficile and stool cultures - negative CKD stage III Presented with creatinine 1.9 which seems to be around baseline received gentle fluids Follow repeat labs Hypertension On amlodipine and metoprolol succinate Will monitor GERD on Protonix Aspiration risk Pured diet Need speech follow-up Malnutrition Dietitian consult Chronic pain Continue home pain medications Peripheral vascular disease On aspirin and statin Ambulatory dysfunction Wheelchair-bound PT OT DVT prophylaxis SCDs for now If no further procedures planned will place on heparin subcu Admission and Anticipated Discharge Date Admission Date: May 22, 2023 Subjective Pt seen in follow up of priapism s/p aspiration by urology Recently admitted for aspiration pna Currently sitting up in bed in NAD Denies any fever, chills, chest pain, shortness of breath. Denies any cough. He is voiding. dressings applied to penile shaft. Urology following Review of Systems Review of Systems: All systems reviewed & are unremarkable except as noted in Subjective Physical Exam Physical Exam: General- + tthin , + chronically ill appearing M in NAD Head- atraumatic Eyes- PERRL. Neck- supple, no JVD. Lungs- clear to auscultation no wheezing or crackles. Heart- regular rhythm; no murmur, no gallop. Abdomen- normal bowel sounds, soft, nontender, no distension. - no priapism seen. S/P penile aspiration and on dressing Extremities- no pretibial edema, no erythema seen. Neuro- alert, oriented x 3; PERRL, no facial palsy; no dysarthria; Lower extremity weakness. Skin- Stage 3 right hip ulcer. Results & Data Results & Data Vital Signs (Past 12 Hours) Vital Signs Temp Pulse Pulse Resp BP BP BP 05/23/23 07:09 37.1 C 95 H 15 115/70 05/23/23 03:50 37 C 101 H 16 113/67 05/23/23 02:00 108 H 05/23/23 01:08 36.9 C 105 H 18 117/65 05/22/23 23:50 108 H 05/22/23 21:00 135/65 05/22/23 20:00 106 H Pulse Ox O2 Del Method 05/23/23 07:09 96 Room Air 05/23/23 03:50 96 Room Air 05/23/23 02:00 05/23/23 01:08 97 Room Air 05/22/23 23:50 05/22/23 21:00 98 Room Air 05/22/23 20:00 Laboratory Results 05/23/23 05/22/23 05/22/23 Range/Units 05:27 18:35 17:09 WBC 19.64 H (4.8-10.8) K/ul RBC 4.10 L (4.70-6.10) M/uL Hgb 12.1 L (14.0-18.0) g/dl Hct 38.0 L (42.0-52.0) % MCV 92.7 (80.0-100.0) fL MCH 29.5 (25.0-34.0) pg MCHC 31.8 L (32.0-36.0) g/dL RDW Std Deviation 55.2 H (36.4-46.3) fL RDW Coeff of [place] 16.3 H (11.5-14.5) % Plt Count 471 H (130-400) K/uL MPV 9.8 (9.4-12.4) fL Immature Gran % (Auto) 1.0 % Neut % (Auto) 72.0 % Lymph % (Auto) 15.2 % [place] % (Auto) 9.7 % Eos % (Auto) 1.0 % Baso % (Auto) 1.1 % Neut # (Auto) 14.14 H (1.40-6.50) K/uL Lymph # (Auto) 2.99 (1.20-3.40) K/uL [place] # (Auto) 1.91 H (0.11-0.59) K/uL Eos # (Auto) 0.19 (0.00-0.50) K/uL Baso # (Auto) 0.21 H (0.00-0.20) K/uL Immature Gran # (Auto) 0.20 (0.01-0.20) K/uL ABG pH 7.00 L* (7.35-7.45) ABG pCO2 56 H (35-46) mmHg ABG pO2 38 L (80-95) mmHg ABG HCO3 14 L (19-24) mmol/L ABG O2 Saturation 64.6 L (90-95) % ABG Base Excess -16.9 L (-9-1.8) mEq/L Ant Test Not Reportable Oxygen Given Not Reportable Sodium 135 L (136-145) mmol/L Potassium 4.6 (3.5-5.1) mmol/L Chloride 108 H (98-107) mmol/L Carbon Dioxide 18 L (21-32) mmol/L Anion Gap 9 (3-11) BUN 26 H (6-23) mg/dl Creatinine 1.88 H (0.6-1.4) mg/dl Est Cr Clr Drug Dosing 26.6 ml/min Est GFR ( Amer) 41.6 ml/min Est GFR (Non-Af Amer) 35.9 ml/min BUN/Creatinine Ratio 13.8 (10-20) Glucose 92 (70-99(Fasting)) mg/dl Lactate (0.4-2.0) mmol/L Calcium 9.1 (8.6-10.3) mg/dl Magnesium 1.8 (1.7-2.4) mg/dl Total Bilirubin (0.2-1.0) mg/dl Direct Bilirubin (0-0.2) mg/dl AST (13-39) U/L ALT (7-52) U/L Alkaline Phosphatase (34-104) U/L Total Creatine Kinase (30-223) U/L Troponin I High Sens (0-20) pg/ml Total Protein (6.0-8.3) gm/dl Albumin (3.4-5.0) gm/dl Procalcitonin (0-0.5) ng/ml Urine Color Yellow Urine Appearance Clear (Clear) Urine pH 5.5 (4.5-7.5) Ur Specific [place] 1.015 (1.000-1.030) Urine Protein 3+ H (Negative) Urine Glucose (UA) Negative (Negative) Urine Ketones Negative (Negative) Urine Blood 1+ H (Negative) Urine Nitrite Negative (Negative) Urine Bilirubin Negative (Negative) Urine Urobilinogen Negative (Negative) Ur Leukocyte Esterase Negative (Negative) Urine WBC (Auto) 10-30 H (0-5) /hpf Urine RBC (Auto) 0-4 (0-4) /hpf U Hyaline Cast (Auto) 1-5 (0-5) /lpf U Epithel Cells (Auto) >30 H (0-5) /lpf Urine Bacteria (Auto) Negative (Negative) 05/22/23 05/22/23 05/22/23 Range/Units 16:04 16:03 15:23 WBC 19.27 H (4.8-10.8) K/ul RBC 4.95 (4.70-6.10) M/uL Hgb 14.5 (14.0-18.0) g/dl Hct 45.1 (42.0-52.0) % MCV 91.1 (80.0-100.0) fL MCH 29.3 (25.0-34.0) pg MCHC 32.2 (32.0-36.0) g/dL RDW Std Deviation 53.8 H (36.4-46.3) fL RDW Coeff of [place] 16.2 H (11.5-14.5) % Plt Count 479 H (130-400) K/uL MPV 10.2 (9.4-12.4) fL Immature Gran % (Auto) 1.6 % Neut % (Auto) 72.9 % Lymph % (Auto) 15.2 % [place] % (Auto) 8.4 % Eos % (Auto) 0.9 % Baso % (Auto) 1.0 % Neut # (Auto) 14.06 H (1.40-6.50) K/uL Lymph # (Auto) 2.93 (1.20-3.40) K/uL [place] # (Auto) 1.62 H (0.11-0.59) K/uL Eos # (Auto) 0.17 (0.00-0.50) K/uL Baso # (Auto) 0.19 (0.00-0.20) K/uL Immature Gran # (Auto) 0.30 H (0.01-0.20) K/uL ABG pH (7.35-7.45) ABG pCO2 (35-46) mmHg ABG pO2 (80-95) mmHg ABG HCO3 (19-24) mmol/L ABG O2 Saturation (90-95) % ABG Base Excess (-9-1.8) mEq/L Ant Test Oxygen Given Sodium 133 L (136-145) mmol/L Potassium 4.2 (3.5-5.1) mmol/L Chloride 104 (98-107) mmol/L Carbon Dioxide 18 L (21-32) mmol/L Anion Gap 11 (3-11) BUN 31 H (6-23) mg/dl Creatinine 1.92 H (0.6-1.4) mg/dl Est Cr Clr Drug Dosing 26.0 ml/min Est GFR ( Amer) 40.6 ml/min Est GFR (Non-Af Amer) 35.0 ml/min BUN/Creatinine Ratio 16.1 (10-20) Glucose 105 H (70-99(Fasting)) mg/dl Lactate 1.3 (0.4-2.0) mmol/L Calcium 10.0 (8.6-10.3) mg/dl Magnesium 2.0 (1.7-2.4) mg/dl Total Bilirubin 0.9 (0.2-1.0) mg/dl Direct Bilirubin 0.0 (0-0.2) mg/dl AST 18 (13-39) U/L ALT 17 (7-52) U/L Alkaline Phosphatase 69 (34-104) U/L Total Creatine Kinase 43 (30-223) U/L Troponin I High Sens 8.6 (0-20) pg/ml Total Protein 7.9 (6.0-8.3) gm/dl Albumin 3.9 (3.4-5.0) gm/dl Procalcitonin 0.35 (0-0.5) ng/ml Urine Color Urine Appearance (Clear) Urine pH (4.5-7.5) Ur Specific [place] (1.000-1.030) Urine Protein (Negative) Urine Glucose (UA) (Negative) Urine Ketones (Negative) Urine Blood (Negative) Urine Nitrite (Negative) Urine Bilirubin (Negative) Urine Urobilinogen (Negative) Ur Leukocyte Esterase (Negative) Urine WBC (Auto) (0-5) /hpf Urine RBC (Auto) (0-4) /hpf U Hyaline Cast (Auto) (0-5) /lpf U Epithel Cells (Auto) (0-5) /lpf Urine Bacteria (Auto) (Negative) Medications Administered Current Inpatient Medications Acetaminophen (Acetaminophen 325 Mg Tab) 650 mg PO Q4H PRN PRN Reason: Pain or Fever Stop: 06/21/23 22:55 Albuterol (Albuterol 0.083% Nebu Soln 3 Ml Vial) 2.5 mg INH QID PRN; Protocol PRN Reason: Shortness Of Breath Or Wheezing Stop: 06/21/23 22:55 Amlodipine Besylate (Amlodipine Besylate 5 Mg Tab) 10 mg PO DAILY [facility] Stop: 06/22/23 08:59 Aspirin (Aspirin 81 Mg Ectab) 81 mg PO DAILY [facility] Stop: 06/22/23 08:59 Atorvastatin Calcium (Atorvastatin 20 Mg Tab) 20 mg PO DAILY [facility] Stop: 06/22/23 08:59 Folic Acid (Folic Acid 1 Mg Tab) 1 mg PO DAILY [facility] Stop: 06/22/23 08:59 Gabapentin (Gabapentin 300 Mg Cap) 600 mg PO HS [facility] Stop: 06/21/23 22:55 Last Admin: 05/23/23 01:30 Dose: Not Given Gabapentin (Gabapentin 300 Mg Cap) 300 mg PO BID@0900,1400 [facility] Stop: 06/22/23 08:59 Guaifenesin (Guaifenesin 600 Mg Tabcr) 600 mg PO Q12 [facility] Stop: 06/21/23 22:55 Last Admin: 05/23/23 01:30 Dose: Not Given Hydromorphone HCl (Hydromorphone Inj 0.5 Mg/0.5 Ml Syr) 0.5 mg IV Q3H PRN PRN Reason: Severe Pain (Scale 7, 8, 9,10) Stop: 06/05/23 22:55 Last Admin: 05/23/23 03:07 Dose: 0.5 mg Sodium Chloride (Nss) 1,000 mls @ 75 mls/hr IV .[id number] [facility] Stop: 05/23/23 12:15 Last Admin: 05/22/23 23:57 Dose: 75 mls/hr Ceftriaxone Sodium 2,000 mg/ (Dextrose) 50 mls @ 100 mls/hr IV Q24H [facility]; Protocol Stop: 05/30/23 18:59 Metronidazole (Flagyl) 500 mg in 100 mls @ 100 mls/hr IV Q8H [facility]; Protocol Stop: 05/30/23 00:00 Last Infusion: 05/23/23 01:30 Dose: Infused Lactobacillus Acidophilus (Advanced Probiotic 625 Mg Capsule) 1,250 mg PO DAILY [facility] Stop: 06/22/23 08:59 Metoprolol Succinate (Metoprolol Succ 25mg Ext Rel Tab) 12.5 mg PO QAM [facility] Stop: 06/22/23 08:59 Multivitamins (Multivitamin Tab) 1 tab PO DAILY [facility] Stop: 06/22/23 08:59 Nitroglycerin (Nitroglycerin Sl 0.4 Mg/Tab Tab) 0.4 mg SL Q5M PRN PRN Reason: Chest Pain Stop: 06/21/23 22:55 Oxycodone HCl (Oxycodone Hcl Ir 5 Mg Tab (Immediate Release)) 5 mg PO Q6H PRN PRN Reason: Pain Stop: 06/05/23 22:55 Pantoprazole Sodium (Pantoprazole 40 Mg Tab) 40 mg PO BID [facility] Stop: 06/21/23 22:55 Last Admin: 05/23/23 01:30 Dose: Not Given Potassium Chloride (Potassium Chloride 10 Meq Tabcr) 10 meq PO DAILY [facility] Stop: 06/22/23 08:59 Prednisone (Prednisone 10 Mg Tablet) 10 mg PO DAILY [facility] Stop: 06/22/23 08:59 Thiamine HCl (Thiamine Hcl 100 Mg Tab) 100 mg PO DAILY [facility] Stop: 06/22/23 08:59
[2023-05-23] MEDS: ATORVASTATIN 20 MG TAB PO SCH (07:53)
[2023-05-23] MEDS: predniSONE 10 MG TABLET PO SCH (07:53)
[2023-05-23] MEDS: amLODIPine BESYLATE 5 MG TAB PO SCH (07:53)
[2023-05-23] MEDS: ASPIRIN 81 MG ECTAB PO SCH (07:53)
[2023-05-23] MEDS: FOLIC ACID 1 MG TAB PO SCH (07:54)
[2023-05-23] MEDS: THIAMINE HCL 100 MG TAB PO SCH (07:54)
[2023-05-23] MEDS: METOPROLOL SUCC 25MG EXT REL TAB PO SCH (07:54)
[2023-05-23] MEDS: POTASSIUM CHLORIDE 10 MEQ TABCR PO SCH (07:54)
[2023-05-23] MEDS: ADVANCED PROBIOTIC 625 MG CAPSULE PO SCH (07:54)
[2023-05-23] MEDS: MULTIVITAMIN TAB PO SCH (07:55)
--- NOTE | 2023-05-23 08:47 | Electrocardiogram Report ---
Test Reason : Blood Pressure : / mmHG Vent. Rate : 110 BPM Atrial Rate : 110 BPM P-R Int : 144 ms QRS Dur : 076 ms QT Int : 322 ms P-R-T Axes : 075 079 067 degrees QTc Int : 435 ms Sinus tachycardia Otherwise normal ECG When compared with ECG of 08-MAY-2023 05:38, No significant change was found Confirmed by Danie Sánchez ([id number]) on 05/23/2023 8:47:03 AM Referred By: REFERRED SELF Confirmed By:Tee Sánchez
[2023-05-23] MEDS ORDERED: [UNRECOGNIZED DRUG - OTHER] PO SCH (09:00)
--- NOTE | 2023-05-23 11:33 | Urology Progress Note ---
Date of Service May 23, 2023 Assessment & Plan (1) Priapism: Plan Follow-up of Priapism s/p bedside aspiration 05/[address] Barajas - unclear etiology. - Afebrile and hemodynamically stable. - Labs reviewedWBC 19.64, hemoglobin 12.1, creatinine 1.88 - Urine and blood cultures pending. - On Flagyl and Rocephin - Voiding spontaneously, continue to monitor. Bladder scan prn. - No signs of recurrence this morning, continue to monitor. - Coban bandage can be removed later today, nursing aware. - Can use ice as needed for edema. - Continue antibiotics, follow cultures. - Continue supportive care. - Urology will follow. Plan reviewed with Dr. Barajas, on-call urologist. Admission and Anticipated Discharge Date Admission Date: May 22, 2023 Subjective Priapism s/p aspiration 05/21 Awake, resting in bed on arrival. NAD. Reports some mild penile discomfort with voiding otherwise no reported pain. Voiding spontaneously in urinal- urine is clear yellow. Coban intact to penile shaft. No signs of recurrent priapism. Review of Systems Constitutional: as per Subjective / HPI Genitourinary: + as per Subjective / HPI Physical Exam Constitutional: no acute distress Respiratory: no respiratory distress and no labored breathing Gastrointestinal (Abdomen): Percussion/Palpation: abdomen soft; abdomen nontender Neurologic: awake Psychiatric: Orientation: alert and oriented x 3 Genitourinary: Cob[place] intact to penile shaft. Mild tenderness with palpation. No erythema. No drainage. Mild edema to base of penis. Results & Data Vital Signs (Past 12 Hours) Vital Signs Temp Pulse Pulse Resp BP BP Pulse Ox 05/23/23 10:55 36.4 C L 89 17 97 05/23/23 07:09 37.1 C 95 H 15 115/70 96 05/23/23 06:25 95 H 05/23/23 03:50 37 C 101 H 16 113/67 96 05/23/23 02:00 108 H 05/23/23 01:08 36.9 C 105 H 18 117/65 97 05/22/23 23:50 108 H O2 Del Method 05/23/23 10:55 Room Air 05/23/23 07:09 Room Air 05/23/23 06:25 05/23/23 03:50 Room Air 05/23/23 02:00 05/23/23 01:08 Room Air 05/22/23 23:50 PG Care Time/CCT Total # of Minutes Spent Total Time Spent with Patient: Total time spent is greater than 50% in coordination of care (as documented) at patient's floor/unit and/or counseling patient: Coding Level of Care Code 56099 SUB INP/OBS CARE 2/35MIN Diagnoses Priapism N48.30
[2023-05-23 14:36] LABS: Adenovirus F 40/41 PCR Not Detected (NotDetected); Astrovirus PCR Not Detected (NotDetected); Campylobacter PCR Not Detected (NotDetected); Cryptosporidium PCR Not Detected (NotDetected); Cyclospora cayetanensis PCR Not Detected (NotDetected); Entamoeba histolytica PCR Not Detected (NotDetected); Enteroaggregative E.coli(EAEC) Not Detected (NotDetected); Enteropathogenic E.coli (EPEC) Not Detected (NotDetected); Enterotoxigenic E.coli (ETEC) Not Detected (NotDetected); Giardia lamblia PCR Not Detected (NotDetected); Norovirus GI/GII PCR Not Detected (NotDetected); Plesiomonas shigelloides PCR Not Detected (NotDetected); Rotavirus A PCR Not Detected (NotDetected); Salmonella PCR Not Detected (NotDetected); Sapovirus PCR Not Detected (NotDetected); Shiga-like Toxin E.coli (STEC) Not Detected (NotDetected); Shigella/Enteroinvasive E.coli Not Detected (NotDetected); Vibrio cholerae PCR Not Detected (NotDetected); Vibrio species PCR Not Detected (NotDetected); Yersinia enterocolitica PCR Not Detected (NotDetected)
[2023-05-23] MEDS: cefTRIAXone SODIUM 2,000 MG in DEXTROSE 5 % MINI-B 50 ML IV SCH (18:25)
[2023-05-24 06:37] LABS: Hematocrit (blood only) 35.3 % (42.0-52.0); Hemoglobin 11.6 g/dl (14.0-18.0); Mean Corpuscular Hemoglobin 29.5 pg (25.0-34.0); Mean Corpuscular Hgb Conc 32.9 g/dL (32.0-36.0); Mean Corpuscular Volume 89.8 fL (80.0-100.0); Mean Platelet Volume 10.6 fL (9.4-12.4); Platelet Count 479 K/uL (130-400); RDW Coefficient of Variation 15.9 % (11.5-14.5); RDW Standard Deviation 52.9 fL (36.4-46.3); Red Blood Count 3.93 M/uL (4.70-6.10); White Blood Count 17.35 K/ul (4.8-10.8)
[2023-05-24 07:05] LABS: BUN Creatinine Ratio 14.2 (10-20); Calcium 9.1 mg/dl (8.6-10.3); Creatinine Clr Calc Pharmacy 30.7 ml/min; Est GFR (African American) 49.8 ml/min; Magnesium 1.9 mg/dl (1.7-2.4); Potassium 3.9 mmol/L (3.5-5.1)
[2023-05-24] MEDS: oxyCODONE HCL IR 5 MG TAB (IMMEDIATE RELEASE) PO PRN (11:00)
--- NOTE | 2023-05-24 13:34 | Urology Progress Note ---
Date of Service May 24, 2023 Assessment & Plan (1) Priapism: Plan Follow-up of Priapism s/p bedside aspiration 05/[address] Barajas - unclear etiology. - Afebrile and hemodynamically stable. - Labs reviewedWBC 19.64 -17.35, hemoglobin 11.6, creatinine 1.88 -1.62 today. Continue to trend. - Urine culture negative. Blood cultures preliminary no growth x 24 hours. Aero/guanaco culture from aspirated blood prelim probable enterococcus and yeast. - On Flagyl and Rocephin - Voiding spontaneously, continue to monitor. Bladder scan prn. - No signs of recurrent priapism. - Can use ice as needed for edema. - Continue antibiotics, follow cultures. - ID consult pending. - Continue supportive care. - Will arrange outpatient follow-up with our service. - Urology will follow peripherally. Admission and Anticipated Discharge Date Admission Date: May 22, 2023 Subjective Priapism s/p aspiration 05/21 Awake, resting in bed on arrival. NAD. No reported pain at present. Voiding spontaneously in urinal. Penile bandage removed yesterday. No signs of recurrent priapism. Review of Systems Constitutional: as per Subjective / HPI Genitourinary: + as per Subjective / HPI Physical Exam Constitutional: no acute distress Respiratory: no respiratory distress and no labored breathing Gastrointestinal (Abdomen): Percussion/Palpation: abdomen soft; abdomen nontender Neurologic: awake Psychiatric: Orientation: alert and oriented x 3 Genitourinary: Mild penile edema. Mild tenderness with palpation. No erythema or bruising noted. No drainage. Results & Data Vital Signs (Past 12 Hours) Vital Signs Temp Pulse Pulse Resp BP BP Pulse Ox 05/24/23 11:27 36.9 C 90 16 120/63 96 05/24/23 07:24 36.6 C 88 16 136/76 97 05/24/23 07:00 81 05/24/23 03:37 36.5 C 54 L 18 148/72 H 96 O2 Del Method 05/24/23 11:27 Room Air 05/24/23 07:24 Room Air 05/24/23 07:00 05/24/23 03:37 Room Air PG Care Time/CCT Total # of Minutes Spent Total Time Spent with Patient: Total time spent is greater than 50% in coordination of care (as documented) at patient's floor/unit and/or counseling patient: Coding Level of Care Code 46917 SUB INP/OBS CARE 235MIN Diagnoses Priapism N48.30
--- NOTE | 2023-05-24 15:43 | Infectious Disease Consult ---
Date of Service May 24, 2023 Telehealth Information I performed this visit using a real-time telehealth connection between my location and the patients location ([facility]). After connecting through interactive tele-video, patient was identified by name and date of and/or wristband check.Patient (or authorized healthcare retail customer service representative) was informed that this was a telemedicine visit and it was being conducted confidentially over secure lines. My office door was closed and no on e else was present in the room with me.Patient (or authorized healthcare retail customer service representative) provided consent to proceed with the visit, expressed an understanding of privacy and security of the telemedicine visit, and gave permission to have a hospital retail customer service representative in the room in order to assist with the visit and to conduct portions of the visit, as needed. I informed the patient (or authorized healthcare retail customer service representative) that I reviewed their record and presented the opportunity for them to ask any questions regarding the visit today. The patient agreed to participate. Assessment & Plan (1) Priapism: Plan: Impression Priapism Diarrhea on augmentin likely abx-induced Aspiration risk Known stage III R hip ulcer Hx of malnutrition, COPD, PVD, ambulatory dysfunction (wheelchair-bound) Recommendations: - the yeast and probable Enterococcus from the culture likely represent colon ization given the location of the sampling and known diarrhea the patient presented w/. Both yeast and Enterococcus are common commensals found in colon. - the patient has clinically improved w/ aspiration done by [facility] and continues to improve even without antimicrobial coverage for Enterococcus and yeast as both CTX and metronidazole do not cover them. - I recommend to discontinue both agents and monitor the patient off abx - ID signing off More than 50% of [id number] visit was spent counseling and coordinating care pertaining to the patient's infection diagnosis, additional work-up, and treatment option(s) as well as potential adverse events of the treatment. History of Present Illness History of Present Illness This is a 67 y/o male (Don), wheelchair-bound, w/ hx of R hip stage III pressure ulcer, HTN, COPD, PVD, dural AVF, malnutrition, ex-smoking, OA, cervical myelopathy, and narcotic bowel syndrome, recently treated w/ multiple abx therapy for presumed aspiration pneumonia in hospital setting, who has returned to hospital from home on 05/22/23 w/ priapism (painful) which started the day before presentation. Diarrhea (3-4 times daily) is noted as well. He stopped augmentin on 05/22/23. The patient had aspiration done by urology in ED (05/22/23). ID was called to evaluate for possible infection? No fever on admission but leukocytosis, which has been present since prior hospitalization in early May. He feels well overall now. BM is more formed now since he stopped augmentin. Penile swelling has improved significantly w/ much improved tenderness (minimal now). Denies coughing, chest pain, sob, n/v, abd pain, or urinary symptoms. The patient is currently on CTX and metronidazole. Allergies Allergy/AdvReac Type Severity Reaction Status Date / Time No Known Allergies Allergy Verified 05/02/23 14:09 Home Medications Medication Instructions Recorded Confirmed Type gabapentin 300 mg capsule See Rx Instructions .Route .COMPLEX 07/28/19 05/22/23 History (Neurontin) docusate sodium 100 mg capsule 100 mg PO BID #60 caps 08/03/19 05/22/23 Rx (Colace) amlodipine 10 mg tablet 10 mg PO DAILY #30 tabs 10/31/19 05/22/23 Rx aspirin 81 mg tablet,delayed 81 mg PO DAILY #30 tabs 11/19/19 05/22/23 Rx release (Ecotrin Low Strength) atorvastatin 20 mg tablet (Lipitor) 20 mg PO DAILY #30 tabs 11/19/19 05/22/23 Rx pantoprazole 40 mg tablet,delayed 40 mg PO BID #60 tabs 11/19/19 05/22/23 Rx release folic acid 1 mg tablet 1 mg PO DAILY 04/13/21 05/22/23 History multivitamin (Multiple Vitamins 1 tab PO DAILY 04/13/21 05/22/23 History tablet) thiamine HCl (vitamin B1) 100 mg 100 mg PO DAILY 04/13/21 05/22/23 History tablet albuterol sulfate 2.5 mg/3 mL 2.5 mg inhalation DIRECTED PRN 10/11/21 05/22/23 History (0.083 %) solution for nebulization Shortness Of Breath Or Wheezing mecobalamin-levomefolate 1 tab PO DAILY 10/11/21 05/22/23 History calcium-pyridoxal phos 3 mg-35 mg-2 mg tablet oxycodone 5 mg tablet 5 mg PO Q6H PRN Pain 10/11/21 05/22/23 History pantoprazole 40 mg granules 40 mg PO BID 05/02/23 05/22/23 History delayed-release for susp in packet (Protonix) potassium chloride 10 mEq 10 meq PO DAILY 05/02/23 05/22/23 History tablet,extended release prednisone 10 mg tablet 10 mg PO DAILY 05/02/23 05/22/23 History L.acidop,casei,lactis,rham-B.lact,pricilla 1 cap PO DAILY #10 caps 05/20/23 05/22/23 Rx 625 mg (10 billion cell) capsule (Advanced Probiotic) amoxicillin 875 mg-potassium 1 tab PO BID #5 tabs 05/20/23 05/22/23 Rx clavulanate 125 mg tablet guaifenesin 600 mg tablet, 600 mg PO Q12 #10 tabs 05/20/23 05/22/23 Rx extended release 12 hr (Mucinex) metoprolol succinate 25 mg 12.5 mg (1/2 x 25 mg) PO QAM #30 05/20/23 05/22/23 Rx tablet,extended release 24 hr tabs sennosides 8.6 mg tablet (Senokot) 8.6 mg PO QAM #30 tabs 05/20/23 05/22/23 Rx Patient History Medical History Chronic pulmonary aspiration Right lower lobe pneumonia Neuropathy Rib fracture Chronic low back pain Degenerative joint disease (DJD) of lumbar spine Lumbar degenerative disc disease Tobacco abuse COPD (chronic obstructive pulmonary disease) Pneumothorax Surgical History S/P chest tube placement History of cataract surgery Family History Other Hypertension Social History Smoking Status: Never smoker packs per day: 1; Second Hand Exposure: No; Do You Dip or Chew Tobacco: No; Hx Alcohol Use: No Hx Substance Use: No Preferred Language: [place] Communication Ability: Effective Visual Impairment: No Limitations Hearing Ability: Normal Steam Press Tender Required: No Beliefs That Will Affect Care: None marital status: Current Living Situation: Spouse current occupational status: retired How many Children do You have: 0 How many Children do You have Comment: Spouse able to assist with care. Other Information That Helps Us Care for You: No Feels Safe at Home: Yes Safety Concerns: Feels Safe At This Time Diet: regular during the past year weight has: remained stable Assistive Devices: Walker and Wheelchair Review of Systems as HPI and all others negative Physical Exam Gen: no acute distress Lungs: breathing comfortably on room air Neuro: Alert and oriented x3, conversant, answering questions appropropriately Genital: minimally swollen penile shaft, no warmth per nursing staff at bedside, no obvious tenderness per patient Results & Data Vital Signs (Past 12 Hours) Vital Signs Temp Pulse Pulse Resp BP BP Pulse Ox 05/24/23 15:35 36.7 C 97 H 18 130/79 96 05/24/23 14:02 90 05/24/23 11:27 36.9 C 90 16 120/63 96 05/24/23 07:24 36.6 C 88 16 136/76 97 05/24/23 07:00 81 05/24/23 03:37 36.5 C 54 L 18 148/72 H 96 O2 Del Method 05/24/23 15:35 Room Air 05/24/23 14:02 05/24/23 11:27 Room Air 05/24/23 07:24 Room Air 05/24/23 07:00 05/24/23 03:37 Room Air Laboratory Results WBC 17.35K H 11. 6 Plt 479K Cr 1.62K LFT unremarkable PCT 0.35 UA (05/21): neg LE GI pathogen panel neg Genital specimen (05/21): probable Enterococcus, yeast not C albicans CT pelvis (05/21): 1. There is a 4.0 x 3.2 x 2.5 cm hypodense structure within the right groin which appears to represent a high riding/undescended right testis within the right inguinal canal. 2. A few punctate bladder calculi. Medications Administered ceftriaxone and metronidazole
--- NOTE | 2023-05-24 16:43 | Hospitalist Progress Note ---
Date of Service May 24, 2023 Assessment & Plan (1) Priapism: Plan: 67-yo M with hypertension, COPD, peripheral vascular disease, hypertension, dural arteriovenous fistula, constipation, protein calorie malnutrition, history of narcotic bowel syndrome, osteoarthritis, lumbar degenerative disc disease, cervical myelopathy, left cervical adenopathy, history of tobacco abuse, wheelchair-bound, can transfer from bed to wheelchair but lately requiring some assistance and was recently in the hospital for aspiration pneumonia and severe sepsis and acute hypoxic respiratory failure. Treated with multiple antibiotics. Seen by speech and discharge instructions were recommended alternate solids and liquids oral hygiene and small bites and small sips in slow rate and also has right hip pressure ulcer stage III with no evidence of osteomyelitis cultures growing Klaudia treating with topical antifungal and was discharged home on Augmentin comes back with a priapism. Patient since yesterday is having priapism and having a lot of pain so came to the ER . He is also having diarrhea 3-4 times daily. And he stopped taking Augmentin. Urology aspirated priapism. Current resting comfortably and hemodynamically stable. Has pain in his penile region and also having his chronic pain in the back and bodyaches.Denies any fevers. Alert and oriented x 3. Denies any headache. No blurred visions. No runny nose. Has mild sore throat. No cough. No chest pain or shortness of breath. No nausea. No abdominal pain. Micturating okay as per patient. Hemodynamics are okay. Priapism S/p aspiration by urology in the ER blood culture - poss. enterococcus - discussed with ID Etiology unclear Possible infectious source as per urology(possibly from recent pneumonia and hip ulcer) Placed antibiotic Rocephin and Flagyl Urology and ID consult If recurrence may need aspiration again per urology ID consulted and discussed with - no concern for infection and recommend to discontinue abx Diarrhea On antibiotics Continue probiotic stool checked for C. difficile and stool cultures - negative CKD stage III Presented with creatinine 1.9 which seems to be around baseline received gentle fluids Follow repeat labs Hypertension On amlodipine and metoprolol succinate Will monitor GERD on Protonix Aspiration risk Pured diet Need speech follow-up Malnutrition Dietitian consult Chronic pain Continue home pain medications Peripheral vascular disease On aspirin and statin Ambulatory dysfunction Wheelchair-bound PT OT DVT prophylaxis SCDs for now Admission and Anticipated Discharge Date Admission Date: May 22, 2023 Subjective Pt seen in follow up of priapism s/p aspiration by urology Recently admitted for aspiration pna Currently sitting up in bed in NAD Denies any fever, chills, chest pain, shortness of breath. Denies any cough. He is voiding. dressings removed from penile shaft. Pt has minimal discomfort, feels well. Urology following and discussed with - ok for poss. dc ID consulted and discussed with - no concern for infection (posit. blood cultx discussed), recommend to stop abx CM involved in arranging transport. Discussed with pt's over the phone - plan to Dc in the morning. Review of Systems Review of Systems: All systems reviewed & are unremarkable except as noted in Subjective Physical Exam Physical Exam: General- + thin , + chronically ill appearing M in NAD Head- atraumatic Eyes- PERRL. Neck- supple, no JVD. Lungs- clear to auscultation no wheezing or crackles. Heart- regular rhythm; no murmur, no gallop. Abdomen- normal bowel sounds, soft, nontender, no distension. - no priapism seen. S/P penile aspiration, dressings removed Extremities- no pretibial edema, no erythema seen. Neuro- alert, oriented x 3; PERRL, no facial palsy; no dysarthria; Lower extremity weakness. Skin- Stage 3 right hip ulcer. Results & Data Results & Data Vital Signs (Past 12 Hours) Vital Signs Temp Pulse Pulse Resp BP Pulse Ox O2 Del Method 05/24/23 15:35 36.7 C 97 H 18 130/79 96 Room Air 05/24/23 14:02 90 05/24/23 11:27 36.9 C 90 16 120/63 96 Room Air 05/24/23 07:24 36.6 C 88 16 136/76 97 Room Air 05/24/23 07:00 81 Laboratory Results 05/24/23 Range/Units 05:26 WBC 17.35 H (4.8-10.8) K/ul RBC 3.93 L (4.70-6.10) M/uL Hgb 11.6 L (14.0-18.0) g/dl Hct 35.3 L (42.0-52.0) % MCV 89.8 (80.0-100.0) fL MCH 29.5 (25.0-34.0) pg MCHC 32.9 (32.0-36.0) g/dL RDW Std Deviation 52.9 H (36.4-46.3) fL RDW Coeff of [place] 15.9 H (11.5-14.5) % Plt Count 479 H (130-400) K/uL MPV 10.6 (9.4-12.4) fL Sodium 137 (136-145) mmol/L Potassium 3.9 (3.5-5.1) mmol/L Chloride 108 H (98-107) mmol/L Carbon Dioxide 19 L (21-32) mmol/L Anion Gap 10 (3-11) BUN 23 (6-23) mg/dl Creatinine 1.62 H (0.6-1.4) mg/dl Est Cr Clr Drug Dosing 30.7 ml/min Est GFR ( Amer) 49.8 ml/min Est GFR (Non-Af Amer) 43.0 ml/min BUN/Creatinine Ratio 14.2 (10-20) Glucose 85 (70-99(Fasting)) mg/dl Calcium 9.1 (8.6-10.3) mg/dl Phosphorus 4.0 (2.5-4.9) mg/dl Magnesium 1.9 (1.7-2.4) mg/dl Medications Administered Current Inpatient Medications Acetaminophen (Acetaminophen 325 Mg Tab) 650 mg PO Q4H PRN PRN Reason: Pain or Fever Stop: 06/21/23 22:55 Albuterol (Albuterol 0.083% Nebu Soln 3 Ml Vial) 2.5 mg INH QID PRN; Protocol PRN Reason: Shortness Of Breath Or Wheezing Stop: 06/21/23 22:55 Amlodipine Besylate (Amlodipine Besylate 5 Mg Tab) 10 mg PO DAILY GENTRY Stop: 06/22/23 08:59 Last Admin: 05/24/23 07:59 Dose: 10 mg Aspirin (Aspirin 81 Mg Ectab) 81 mg PO DAILY GENTRY Stop: 06/22/23 08:59 Last Admin: 05/24/23 07:59 Dose: 81 mg Atorvastatin Calcium (Atorvastatin 20 Mg Tab) 20 mg PO DAILY GENTRY Stop: 06/22/23 08:59 Last Admin: 05/24/23 07:59 Dose: 20 mg Folic Acid (Folic Acid 1 Mg Tab) 1 mg PO DAILY GENTRY Stop: 06/22/23 08:59 Last Admin: 05/24/23 07:59 Dose: 1 mg Gabapentin (Gabapentin 300 Mg Cap) 600 mg PO HS [facility] Stop: 06/21/23 22:55 Last Admin: 05/23/23 21:13 Dose: 600 mg Gabapentin (Gabapentin 300 Mg Cap) 300 mg PO BID@0900,1400 GENTRY Stop: 06/22/23 08:59 Last Admin: 05/24/23 13:48 Dose: 300 mg Guaifenesin (Guaifenesin 600 Mg Tabcr) 600 mg PO Q12 GENTRY Stop: 06/21/23 22:55 Last Admin: 05/24/23 07:59 Dose: 600 mg Hydromorphone HCl (Hydromorphone Inj 0.5 Mg/0.5 Ml Syr) 0.5 mg IV Q3H PRN PRN Reason: Severe Pain (Scale 7, 8, 9,10) Stop: 06/05/23 22:55 Last Admin: 05/24/23 13:50 Dose: 0.5 mg Lactobacillus Acidophilus (Advanced Probiotic 625 Mg Capsule) 1,250 mg PO DAILY GENTRY Stop: 06/22/23 08:59 Last Admin: 05/24/23 07:59 Dose: 1,250 mg Metoprolol Succinate (Metoprolol Succ 25mg Ext Rel Tab) 12.5 mg PO QAM [facility] Stop: 06/22/23 08:59 Last Admin: 05/24/23 08:00 Dose: 12.5 mg Multivitamins (Multivitamin Tab) 1 tab PO DAILY GENTRY Stop: 06/22/23 08:59 Last Admin: 05/24/23 07:59 Dose: 1 tab Nitroglycerin (Nitroglycerin Sl 0.4 Mg/Tab Tab) 0.4 mg SL Q5M PRN PRN Reason: Chest Pain Stop: 06/21/23 22:55 Oxycodone HCl (Oxycodone Hcl Ir 5 Mg Tab (Immediate Release)) 5 mg PO Q6H PRN PRN Reason: Pain Stop: 06/05/23 22:55 Last Admin: 05/24/23 11:00 Dose: 5 mg Pantoprazole Sodium (Pantoprazole 40 Mg Tab) 40 mg PO BID GENTRY Stop: 06/21/23 22:55 Last Admin: 03/19/24 07:59 Dose: 40 mg Potassium Chloride (Potassium Chloride 10 Meq Tabcr) 10 meq PO DAILY GENTRY Stop: 06/22/23 08:59 Last Admin: 05/24/23 08:21 Dose: 10 meq Prednisone (Prednisone 10 Mg Tablet) 10 mg PO DAILY GENTRY Stop: 06/22/23 08:59 Last Admin: 05/24/23 07:59 Dose: 10 mg Thiamine HCl (Thiamine Hcl 100 Mg Tab) 100 mg PO DAILY GENTRY Stop: 06/22/23 08:59 Last Admin: 05/24/23 07:59 Dose: 100 mg
[2023-05-25 05:58] LABS: Hematocrit (blood only) 33.4 % (42.0-52.0); Hemoglobin 10.8 g/dl (14.0-18.0); Mean Corpuscular Hemoglobin 29.2 pg (25.0-34.0); Mean Corpuscular Hgb Conc 32.3 g/dL (32.0-36.0); Mean Corpuscular Volume 90.3 fL (80.0-100.0); Mean Platelet Volume 10.3 fL (9.4-12.4); Platelet Count 481 K/uL (130-400); RDW Coefficient of Variation 15.7 % (11.5-14.5); RDW Standard Deviation 52.2 fL (36.4-46.3); White Blood Count 16.81 K/ul (4.8-10.8)
[2023-05-25 06:09] LABS: BUN Creatinine Ratio 16.9 (10-20); Calcium 8.6 mg/dl (8.6-10.3); Creatinine Clr Calc Pharmacy 33.2 ml/min; Est GFR (African American) 55.6 ml/min; Est GFR (Non-African American) 47.9 ml/min; Magnesium 1.7 mg/dl (1.7-2.4); Phosphorus 2.9 mg/dl (2.5-4.9); Potassium 3.8 mmol/L (3.5-5.1)
--- NOTE | 2023-05-25 10:36 | Discharge Summary ---
Date of Service May 25, 2023 Admission HPI Per Admitting Provider 67-year-old male with past medical significant for hypertension, COPD, peripheral vascular disease, hypertension, dural arteriovenous fistula, constipation, protein calorie malnutrition, history of narcotic bowel syndrome, osteoarthritis, lumbar degenerative disc disease, cervical myelopathy, left cervical adenopathy, history of tobacco abuse, wheelchair-bound, can transfer from bed to wheelchair but lately requiring some assistance and was recently in the hospital for aspiration pneumonia and severe sepsis and acute hypoxic respiratory failure. Treated with multiple antibiotics. Seen by speech and discharge instructions were recommended alternate solids and liquids oral hygiene and small bites and small sips in slow rate and also has right hip pressure ulcer stage III with no evidence of osteomyelitis cultures growing Klaudia treating with topical antifungal and was discharged home on Augmentin comes back with a priapism. Patient since yesterday is having priapism and having a lot of pain so came to the ER today. He is also having diarrhea 3-4 times daily. And he stopped taking Augmentin today. Urology aspirated priapism. Current resting comfortably and hemodynamically stable. Has pain in his penile region and also having his chronic pain in the back and bodyaches.Denies any fevers. Alert and orientedx 3. Denies any headache. No blurred visions. No runny nose. Has mild sore throat. No cough. No chest pain or shortness of breath. No nausea. No abdominal pain. Micturating okay as per patient. Hemodynamics are okay. Past medical history. As mentioned above Past surgical history. Bilateral cataract replacement, chest tube insertion, colonoscopy, EGD, bilateral cataracts, cervical spine laminectomy, vertebral artery catheter placement. Family history. Mother had heart disease. Stroke. Father had lung cancer. Sister has heart disease. Brother has heart disease. Brother had throat cancer Admission Exam Per Admitting Provider General- Not in distress Head- atraumatic Eyes- PERRL. ENT- oropharynx clear Neck- supple, no JVD. Lungs- clear to auscultation no wheezing or crackles. Heart- regular rhythm; no murmur, no gallop. Abdomen- normal bowel sounds, soft, nontender, no distension. Priapism seen. S/P penile aspiration and on dressing Extremities- no pretibial edema, no erythema seen. Neuro- alert, oriented x 3; PERRL, no facial palsy; no dysarthria; Lower extremity weakness. Skin- Stage 3 right hip ulcer. Principal Diagnosis Priapism Discharge Exam General- + thin , + chronically ill appearing M in NAD Head- atraumatic Eyes- PERRL. Neck- supple, no JVD. Lungs- clear to auscultation no wheezing or crackles. Heart- regular rhythm; no murmur, no gallop. Abdomen- normal bowel sounds, soft, nontender, no distension. - no priapism seen. S/P penile aspiration, dressings removed Extremities- no pretibial edema, no erythema seen. Neuro- alert, oriented x 3; PERRL, no facial palsy; no dysarthria; Lower extremity weakness. Skin- Stage 3 right hip ulcer. Discharge Data Allergies Allergy/AdvReac Type Severity Reaction Status Date / Time No Known Allergies Allergy Verified 05/02/23 14:09 Consultations 05/22/23 22:56 Consult Urology Routine 05/23/23 09:00 Consult Infectious Diseases Routine Ordered Studies 05/22/23 17:13 CT pelvis wo con Stat FINDINGS: There is a 4.0 x 3.2 x 2.5 cm hypodense structure within the right groin which appears to represent a high riding/undescended right testis within the right inguinal canal. No inguinal lymphadenopathy. Mild bladder wall thickening. This is likely chronic from the mildly enlarged prostate gland. There are few punctate calculi noted. No loculated fluid collections to suggest an abscess. No pelvic lymphadenopathy or pelvic free fluid. The visualized loops of bowel show no wall thickening or obstruction. Normal appendix. No evidence for an inguinal hernia. The left testis is likely located within the scrotum. No acute fractures identified. IMPRESSION: 1. There is a 4.0 x 3.2 x 2.5 cm hypodense structure within the right groin which appears to represent a high riding/undescended right testis within the right inguinal canal. 2. A few punctate bladder calculi. Hospital Course (1) Priapism: 67-yo M with hypertension, COPD, peripheral vascular disease, hypertension, dural arteriovenous fistula, constipation, protein calorie malnutrition, history of narcotic bowel syndrome, osteoarthritis, lumbar degenerative disc disease, cervical myelopathy, left cervical adenopathy, history of tobacco abuse, wheelchair-bound, can transfer from bed to wheelchair but lately requiring some assistance and was recently in the hospital for aspiration pneumonia and severe sepsis and acute hypoxic respiratory failure. Treated with multiple antibiotics. Seen by speech and discharge instructions were recommended alternate solids and liquids oral hygiene and small bites and small sips in slow rate and also has right hip pressure ulcer stage III with no evidence of osteomyelitis cultures growing Klaudia treating with topical antifungal and was discharged home on Augmentin comes back with a priapism. Patient since yesterday is having priapism and having a lot of pain so came to the ER . He is also having diarrhea 3-4 times daily. And he stopped taking Augmentin. Urology aspirated priapism. Current resting comfortably and hemodynamically stable. Has pain in his penile region and also having his chronic pain in the back and bodyaches.Denies any fevers. Alert and oriented x 3. Denies any headache. No blurred visions. No runny nose. Has mild sore throat. No cough. No chest pain or shortness of breath. No nausea. No abdominal pain. Micturating okay as per patient. Hemodynamics are okay. Priapism S/p aspiration by urology in the ER blood culture (penile blood) - positive enterococcus - discussed with ID blood cultx - negat. for 48 hrs urine cultx - negat. Etiology unclear Possible infectious source as per urology(possibly from recent pneumonia and hip ulcer) Placed antibiotic Rocephin and Flagyl Urology and ID consult If recurrence may need aspiration again per urology ID consulted and discussed with - no concern for infection and recommend to discontinue abx Diarrhea On antibiotics Continue probiotic stool checked for C. difficile and stool cultures - negative CKD stage III Presented with creatinine 1.9 which seems to be around baseline received gentle fluids Follow repeat labs Hypertension On amlodipine and metoprolol succinate Will monitor GERD on Protonix Aspiration risk Pured diet Need speech follow-up Malnutrition Dietitian consult Chronic pain Continue home pain medications Peripheral vascular disease On aspirin and statin Ambulatory dysfunction Wheelchair-bound PT OT Total Time Total Time Spent Total Time Spent (In Minutes): 40 Discharge Plan Discharge Items Patient Disposition: Home - Self-Care Reason For Visit: PRIAPISM, INFECTION Discharge Diagnosis: Priapism Activity: Per Instructions section Non-emergency contact: Primary Care Provider and Urologist Call non-emergency contact if: you have any medication questions and your symptoms worsen Follow-up/Referrals: Nora Espinosa MD [Primary Care Provider] - Diet: Regular Diet Texture: Easy to Chew Addtl Attending Provider Instructions: Follow up with primary care physician within 1 week. No medication changes were made during this hospitalization. Pending Studies at Discharge: Yes Studies:: final blood cultx Stand-Alone Forms: My [facility], Smoking Cessation Medications and DC Order Prescriptions: Continued pantoprazole [Protonix] [address] for susp in packet 40 mg PO BID potassium chloride 10 mEq tablet extended release 10 meq PO DAILY prednisone 10 mg tablet 10 mg PO DAILY thiamine HCl (vitamin B1) 100 mg tablet 100 mg PO DAILY folic acid 1 mg tablet 1 mg PO DAILY multivitamin [Multiple Vitamins] Tablet 1 tab PO DAILY pantoprazole 40 mg Tablet,Delayed Release (Dr/Ec) 40 mg PO BID Qty: 60 0RF aspirin [Ecotrin Low Strength] 81 mg tablet,delayed release (DR/EC) 81 mg PO DAILY Qty: 30 2RF Rx Instructions: always with a full stomach atorvastatin [Lipitor] 20 mg tablet 20 mg PO DAILY Qty: 30 2RF gabapentin [Neurontin] 300 mg capsule See Rx Instructions .ROUTE .COMPLEX Rx Instructions: 300 mg orally; TAKES 300 MG QAM & AFTERNOON, THEN 600 MG QPM. docusate sodium [Colace] 100 mg capsule 100 mg PO BID Qty: 60 0RF amlodipine 10 mg tablet 10 mg PO DAILY Qty: 30 0RF albuterol sulfate 2.5 mg /3 mL (0.083 %) Solution For Nebulization 2.5 mg INHALATION DIRECTED PRN (Reason: Shortness Of Breath Or Wheezing) oxycodone 5 mg tablet 5 mg PO Q6H PRN (Reason: Pain) mecobal-levomefolat Ca-B6 phos 3-35-2 mg Tablet 1 tab PO DAILY metoprolol succinate 25 mg Tablet Extended Release 24 Hr 12.5 mg PO QAM Qty: 30 0RF guaifenesin [Mucinex] 600 mg Tablet Extended Release 12hr 600 mg PO Q12 Qty: 10 0RF Advanced Probiotic 625 mg (10 billion cell) Capsule 1 cap PO DAILY Qty: 10 0RF sennosides [Senokot] 8.6 mg Tablet 8.6 mg PO QAM Qty: 30 0RF Discontinued amoxicillin-pot clavulanate 875-125 mg tablet 1 tab PO BID Qty: 5 0RF Discharge Orders: Discharge Order (Routine); Ordered 05/25/23 Ordered By: Ishaan López/Other Patient Handouts: Cellulitis Dc Admission Data Admit Date/Time: 05/22/23 20:45 Attending Provider: Ishaan Raymond Admit Provider: Mahesh Campbell Primary Care Provider: Nora Espinosa Other Providers: Freddy Barajas; Avelino Ortiz; Sebas Holloway; Sebastian Eldridge I.; Adiel Nielsen II; Divine Will; Roni Victoria; Richard Corea; Charmaine Pruitt; [facility] Fax Other Interventions: Discharge Summary Assessment (RN) Last Done: 05/25/23 07:50
--- NOTE | 2023-05-27 08:31 | Coding Query ---
PRESENT ON ADMISSION QUERY To promote full compliance with coding requirements relating to pateint care, physician participation is requested in all cases of gas derrick operator uncertainty. Please assist us with the question(s) below: Please place an X within the parenthesis (x). The following diagnosis listed in this patient's medical record require physician assistance to determine if they were present on admission (POA) or not. Please advise for each diagnosis whether it was present on admission, not present on admission, or if it was clinically undetermined. 1. right hip pressure ulcer stage III - (H&P documents right hip pressure ulcer stage III, and Skin- Stage 3 right hip ulcer, then,documentation on 05/24 Addendum on the 05/23 Progress Note, and on the Discharge Summary is, "Stage III Pressure ulcer R hip is HEALED") ( x ) Present On Admission - the stage 3 pressure ulcer was Present on admission, and BECAME CLOSED/HEALED during this admission. ( ) Not Present On Admission - the stage 3 pressure ulcer was CLOSED/HEALED at the time of this admission ( ) Other: Please Specify Thank you Bisi Gu *Definition of the present on admission (POA)-Present on admission is defined as present at the time the order for inpatient admission occurs. Conditions that develop during an outpatient encounter prior to a written order for inpatient admission (including emergency department, observation, or outpatient surgery) are considered present on admission. ZAIRAD
--- NOTE | 2023-05-27 08:40 | Coding Query ---
CODING QUERY To promote full compliance with coding requirements relating to patient care, provider participation is requested in all cases of wraparound facilitator uncertainty. Please assist us with the question(s) below: Coding Question(s): Priapism is documented and there is documentation on the Urology Consultation of, "An ABG had been taken during the procedure currently penile blood was consistent with ischemic priapism", and, "See below for procedure report for aspiration, injection, and irrigation of ischemic priapism", and the Infectious Disease Consult documenting, "Recommendations: - the yeast and probable Enterococcus from the culture likely represent colonization given the location of the sampling and known diarrhea the patient presented w/. Both yeast and Enterococcus are common commensals found in colon. - the patient has clinically improved w/ aspiration done by and continues to improve even without antimicrobial coverage for Enterococcus and yeast as both CTX and metronidazole do not cover them. - I recommend to discontinue both agents and monitor the patient off abx - ID signing off", and, as of the Discharge Summary, there is documentation of, "Priapism S/p aspiration by urology in the ER blood culture (penile blood) - positive enterococcus - discussed with ID blood cultx - negat. for 48 hrs urine cultx - negat. Etiology unclear Possible infectious source as per urology(possibly from recent pneumonia and hip ulcer) Placed antibiotic Rocephin and Flagyl Urology and ID consult If recurrence may need aspiration again per urology ID consulted and discussed with - no concern for infection and recommend to discontinue abx". Please specify below, in your clinical opinion, regarding Priapism: (X) Most likely Ischemic Priapism. Please specify further below: (X) due to Ischemia Unspecified ( ) due to Specified Ischemic cause. Please Specify ( ) Most likely Priapism due to Other: Please Specify ( ) Most likely Priapism with Unknown likely cause Physician's Response(s): Was a confirmed ischemic priapism by ABG and clinical exam. Specific cause was not able to be determined, however, possibly induced by infection. No identified blood disorder, medications, or other confirmed cause. Thank you Bisi Gu Principal Diagnosis: "that condition established after study, to be chiefly responsible for occasioning the admission of the patient to the hospital for care." Co-Existing Principal Diagnosis: "when two or more diagnoses equally meet the criteria for principal diagnosis as determined by the circumstances of admission, diagnostic work up, and/or therapy provided, and the Alphabetic Index, Tabular List, or another coding guideline does not provide sequencing direction, any one of the diagnoses may be sequenced first." "When the physician has documented what appears to be a current diagnosis in the body of the record, but has not included the diagnosis in the final diagnostic statement, the physician should be asked whether the diagnosis should be added." (Source Coding [facility] 2 QTR90. p3-4) LIBRA
== END 2023-05-25 13:00 | disposition home health service (06) | DRG 987 ==
LOC: ED 15:07 → EDINP 20:45 → 2N 05-23 00:38